=== PATIENT | female | born 1945 ===

== ENCOUNTER 2024-11-14 12:06 | Inpatient (IN) | payer MEDICARE, SELFPAY ==
--- NOTE | ~2024-11-14 | XR_ITS ---
CHEST RADIOGRAPH CLINICAL HISTORY: Evaluate status of pleural effusions . COMPARISON: 11/14/2024 TECHNIQUE: Single portable view of the chest. FINDINGS The cardiomediastinal silhouette is enlarged and partially obscured. Hazy opacification of the bilateral hemidiaphragms suggesting small bilateral pleural effusions, righ t greater than left. Increased interstitial markings are identified bilaterally, findings suggesting mild pulmonary vascul ar congestion. The remainder of the lungs are clear. Postoperative change within the bilateral apices, suggesting partial rib resection. Fixation hardware within the cervical, thoracic and likely lumbar spines. IMPRESSION: Small bilateral pleural effusions, right greater than left with mild pulmonary vascular congestion. A focused bilateral chest ultrasound may be performed for a sufficient evaluation of the adequacy of the pleural effusions for thoracentesis. Reviewed, dictated and finalized at location A. IMPRESSION: Small bilateral pleural effusions, right greater than left with mild pulmonary vascular congestion. A focused bilateral chest ultrasound may be performed for a sufficient evaluati on of the adequacy of the pleural effusions for thoracentesis.
--- NOTE | ~2024-11-14 | US_ITS ---
EXAMINATION: US soft tissue chest DATE: 11/17/2024 17:49 INDICATION: Bilateral pleural effusions TECHNIQUE: Multiple grayscale and Doppler ultrasound images of the left and right chest were obtained . COMPARISON: None FINDINGS/IMPRESSION: There are relatively symmetric moderate sized bilateral pleural effusions with partial collapse of th e bilateral lower lobes. Reviewed, dictated and finalized at location B.
--- NOTE | ~2024-11-14 | US_ITS ---
Limited ABDOMINAL ULTRASOUND (Doppler ultrasound interrogation techniques used as needed for this coral m.) Ordering provider: Rosita San MD History: . hepatomegaly ?Cirrhosis . Comparison: None. FINDINGS: PANCREAS: Normal echotexture and size of the visualized portions. PORTAL VEIN: Hepatopedal flow demonstrated. LIVER: Enlarged size and normal echotexture. The liver measures 19.2 cm. No focal hepatic lesions or perihepatic fluid collections are identified. BILIARY DUCTS: No intra or extrahepatic biliary dilation. Common bile duct measures 1.7 mm in diamete r which is normal for patient's age. GALLBLADDER: Not well distended. No mobile echogenic foci are seen. No sludge, gallbladder wall thick ening or pericholecystic fluid. The wall measures 1.8 mm. Negative sonographic Sharpe's sign. Inferior vena cava: Patent. FREE FLUID: None visualized within the upper abdomen. Right pleural effusion. IMPRESSION: Hepatomegaly. Small echogenic foci in the gallbladder which may be stones or polyps. Follow-up advise d. Otherwise, normal limited abdominal ultrasound. Reviewed, dictated and finalized at location A. IMPRESSION: Hepatomegaly. Small echogenic foci in the gallbladder which may be stones or po lyps. Follow-up advised. Otherwise, normal limited abdominal ultrasound.
--- NOTE | ~2024-11-14 | CT_ITS ---
CLINICAL INDICATION: Hypotension and hypoxia COMPARISON: None. TECHNIQUE: An enhanced CT of the chest, abdomen and pelvis was performed utilizing multislice spiral technique reconstructed at 5 mm slice thickness. Coronal and sagittal reconstructions were performed . This CT examination was performed utilizing dose reduction techniques. DLP: 464 mGy-cm FINDINGS/OBSERVATIONS: Lung: Large bilateral pleural effusions (right greater than left) with adjacent compressive atelectasis. Consolidation is identified within the superior segment of the left lower lobe. Only the bilateral upper lobes are aerated. The heart is enlarged, without pericardial effusion. Mediastinum: No pathologically enlarged or morphologically suspicious lymph nodes are identified within the medias tinum, bilateral axilla, within the soft tissues of the anterior chest wall. Soft tissues of the chest: Unremarkable. Bones of the chest: Fixation hardware (Carpio rods) is identified along the entirety of the cervical thoracic and lum bar spines, causing streak metallic artifact, limiting examination. No lytic or blastic lesions are identified. Liver: The liver enhances homogeneously and is enlarged measuring 22 cm in longitudinal dimension. Gallbladder and biliary system: The gallbladder is distended, but otherwise unremarkable. Pancreas: The pancreas enhances homogeneously, without ductal dilatation. Spleen: The spleen enhances homogeneously, and is not enlarged measuring 11 cm in longitudinal dimens ion. Kidneys: The bilateral kidneys enhance symmetrically without hydronephrosis or renal calculi. Adrenal glands: Unremarkable. Gastrointestinal tract: Fecal stasis within the colon. Limited evaluation of the pelvis secondary to streak artifact from patient's left hip prosthetic. Mural thickening and edema is suspected within the rectum, with surrounding inflammatory change and i nfiltration of the presacral fat. Appendix: The appendix is not definitively visualized. However, no pericecal inflammatory change is identified suggest the presence of acute appendicitis. Vasculature: Densely calcified atherosclerotic disease is present. No aneurysmal dilatation. Lymph nodes: Scattered nonpathologically enlarged lymph nodes within the root of the mesentery and deep in the pel vis. Pelvic structures: The bladder is decompressed with a Moraes catheter, limiting its evaluation. Sterilization devices within the pelvis. Body wall and musculoskeletal: Small fat-containing umbilical hernia. As detailed above. IMPRESSION: Mural thickening and edema within the distal sigmoid colon and rectum, with infiltration of the kimberlyn cral fat. Large bilateral pleural effusions, right greater than left. Left basilar consolidation. Hepatomegaly. Reviewed, dictated and finalized at location A. IMPRESSION: Mural thickening and edema within the distal sigmoid colon and rectum, with inf iltration of the presacral fat. Large bilateral pleural effusions, right greater than left. Left basilar consolidation. Hepatomegaly.
--- NOTE | ~2024-11-14 | XR_ITS ---
XR chest 1V portable Ordering provider: Tj Saxena History: 79 years Female with . sob . Comparison: None. FINDINGS: MEDIASTINUM: The cardiac silhouette is slightly enlarged. Congestive yolande. LUNGS: No pneumothorax. Bilateral opacification in the upper and lower lobes with opacification more in the right lower lobe suggestive of atelectasis versus pneumonia. Pleural effusion seen on the righ t side. Bilateral interstitial changes seen suggestive of underlying pulmonary edema. OTHER: No free air under the diaphragm. Postoperative changes in the spine. Postoperative changes in the right and left hemithorax. Old fracture. The right and left fifth and 6 th ribs. IMPRESSION: Bilateral pneumonia with highly suggestive underlying pulmonary edema. Right pleural effusion. Reviewed, dictated and finalized at location A.
[2024-11-14 12:13] VITALS: BP 82/43; PULSE 103; RESP 18; TEMP 36.2; O2SAT 93
--- NOTE | 2024-11-14 12:38 | ECG_ITS ---
Test Date: 2024-11-14 13:01:36 Measurements Intervals Cody Rate: 96 P: 0 ND: 0 QRS: 40 QRSD: 91 T: 245 QT: 385 QTc: 488 Interpretive Statements ATRIAL FIBRILLATION EARLY PRECORDIAL R/S TRANSITION ST-T WAVE ABNORMALITY IN ANTEROLAT/INF LEADS- CONSIDER ISCHEMIA BASELINE WANDER- I, II, III, AVL, AVF ABNORMAL ECG No previous ECG available for comparison Electronically Signed On 11-14-2024 16:50:30 CDT by Adi Madrigal D.O.
--- OUTSIDE RECORDS SUMMARY | 2024-11-14 12:42 | XMS_ITS | Encounter Summary ---
Author Organization [facility] Address [address] [facility] [place] [address] Care Team Providers Care Automotive Wholesale Parts Advisor Name Role Phone Elgin Chan MD Primary Care Provide r Encounter Details Date Type Department Care Team (Latest Contact Info) Description 10/26/2014 Ancillary Orders [facility] [place] [address] [place] [phone] Terri Rod, MEDICINE ASSISTANT [address] [place] [phone] Other screening mammogram (Primary Dx) Social History Tobacco Use Types Packs/Day Years Used Date Smoking Tobacco: Never Cigarettes Smokeless Tobacco: Never Alcohol Use Standard Drinks/Week Comments Yes 0 (1 standard drink = 0.6 oz pur e alcohol) social Comments No Sex and Gender Information Value Date Recorded Sex Assigned at Not on file Legal Sex Female 11:13 AM COAT FITTER Gender Identity Not on file Sexual Orientation Not on file Occupation Industry Job Start Date Job End Date Not on file Not on file Not on file Not on file documented as of this encounter Plan of Treatment Upcoming Encounters Date Type Department Care Team (Late st Contact Info) Description 02/23/2025 8:00 AM CDT Appointment [facility] [place] [address] [place] [phone] Jenise Spann MD [address] [place] [phone] documented as of this encounter Visit Diagnoses Diagnosis Other screening mammogram- Primary documented in this encounter Care Teams Automotive Wholesale Parts Advisor Relationship Specialty Start Date End Date Elgin Chan MD [address] [place] [phone] PCP - General Family Practice 06/26/21 documented as of this encounter
--- OUTSIDE RECORDS SUMMARY | 2024-11-14 12:42 | XMS_ITS | Encounter Summary ---
Author Organization [facility] Address [address] [place] [address] Care Team Providers Care Funeral Home Associate Name Role Phone Elgin Chan MD Primary Care Provide r Reason for Referral * Outpatient Services (Routine) - Closed Specialty Diagnoses / Procedures Referred By Contac t Referred To Contact Diagnoses Osteopenia Procedures XR DEXA BONE DENSITY AXIAL 1 OR MORE SITES Htsp, External Provider Referral ID Status Reason Start Date Expiration Date Visits Re quested Visits Authorized [id number] Closed 03/02/2014 04/02/2015 1 1 Encounter Details Date Type Department Care Team (Late st Contact Info) Description 03/02/2014 Ancillary Orders [facility] Central Test Scheduling [place] [address] [place] [address] Htsp, External Provider Osteopenia (Primary Dx) Social History Tobacco Use Types Packs/Day Years Used Date Smoking Tobacco: Never Cigarettes Alcohol Use Standard Drinks/Week Comments Yes 0 (1 standard drink = 0.6 oz pur e alcohol) social Comments No Sex and Gender Information Value Date Recorded Sex Assigned at Not on file Legal Sex Female 11:13 AM KITCHEN ASSISTANT Gender Identity Not on file Sexual Orientation Not on file Occupation Industry Job Start Date Job End Date Not on file Not on file Not on file Not on file documented as of this encounter Plan of Treatment Upcoming Encounters Date Type Department Care Team (Late st Contact Info) Description 02/23/2025 8:00 AM CDT Appointment [facility] [place] [address] [place] [phone] Jenise Spann MD [address] [place] [phone] documented as of this encounter Results * XR DEXA BONE DENSITY AXIAL 1 OR MORE SITES (03/07/2014 1:29 PM CDT) Anatomical Region Laterality Modality Computed Radiogr aphy Impressions 03/07/2014 4:04 PM CDT : Bone mineral densities within the femurs and forearm represent osteopenia. The 10-year probability for a major osteoporotic fracture is 9.1%. MR/db Narrative 03/07/2014 4:04 PM CDT BONE MINERAL DENSITY EXAM, 03/07/14: CLINICAL HISTORY: Osteopenia. INTERPRETATION: Bone mineral density values were obtained from the hips and left forearm and compared to age- and sex-matched nomograms. T-scores in the left and right hip average -1.5 and -1.7 respectively. The T-score within the forearm is approximately -1.7. Procedure Note Fan Aguirre MD - 03/07/2014 BONE MINERAL DENSITY EXAM, 03/07/14: CLINICAL HISTORY: Osteopenia. INTERPRETATION: Bone mineral density values were obtained from the hipsand left forearm and compared to age- and sex-matched nomograms. T-scoresin the left and right hip average -1.5 and -1.7 respectively. The T-scorewithin the forearm is approximately -1.7. IMPRESSION: Bone mineral densities within the femurs and forearm represent osteopenia. The 10-year probability for a major osteoporotic fracture is 9.1%. MR/db us External Provider Htsp DIAGNOSTIC IMAGING ORDERA BLES Final Result documented in this encounter Visit Diagnoses Diagnosis Osteopenia- Primary Disorder of bone and cartilage, unspecified Osteopenia Disorder of bone and cartilage, unspecified documented in this encounter Care Teams Funeral Home Associate Relationship Specialty Start Date End Date Elgin Cahn MD [facility] [address] [facility] [place] [phone] PCP - General Family Practice 06/26/21 documented as of this encounter
--- OUTSIDE RECORDS SUMMARY | 2024-11-14 12:42 | XMS_ITS | Encounter Summary ---
Author Organization [facility] Address [address] [facility] [place] [address] Care Team Providers Care Veneer Drier Feeder Name Role Phone Elgin Chan MD Primary Care Provide r Encounter Details Date Type Department Care Team (Late st Contact Info) Description 03/02/2014 Ancillary Orders [facility] Central Test Scheduling [place] [address] [place] [address] Isra Crowell MD [address] [place] [phone] Social History Tobacco Use Types Packs/Day Years Used Date Smoking Tobacco: Never Cigarettes Alcohol Use Standard Drinks/Week Comments Yes 0 (1 standard drink = 0.6 oz pur e alcohol) social Comments No Sex and Gender Information Value Date Recorded Sex Assigned at Not on file Legal Sex Female 11:13 AM CARDIOPULMONARY PHYSICAL THERAPIST Gender Identity Not on file Sexual Orientation Not on file Occupation Industry Job Start Date Job End Date Not on file Not on file Not on file Not on file documented as of this encounter Plan of Treatment Upcoming Encounters Date Type Department Care Team (Late st Contact Info) Description 02/23/2025 8:00 AM CDT Appointment [facility] [place] [address] [place] [phone] Jenise Spann MD [address] [place] [phone] documented as of this encounter Visit Diagnoses Not on filedocumented in this encounter Care Teams Veneer Drier Feeder Relationship Specialty Start Date End Date Elgin Chan MD [address] [place] [phone] PCP - General Family Practice 06/26/21 documented as of this encounter
--- OUTSIDE RECORDS SUMMARY | 2024-11-14 12:42 | XMS_ITS | Encounter Summary ---
Author Organization [facility] Address [address] [place] [address] Care Team Providers Care Investigation Lieutenant Name Role Phone Elgin Chan MD Primary Care Provide r Encounter Details Date Type Department Care Team (Late st Contact Info) Description 01/28/2018 Ancillary Orders [facility] [place] [address] [place] [phone] Isra Crowell MD [address] [place] [address] Acute back pain with sciatica, left Social History Tobacco Use Types Packs/Day Years Used Date Smoking Tobacco: Never Cigarettes Smokeless Tobacco: Never Alcohol Use Standard Drinks/Week Comments Yes 0 (1 standard drink = 0.6 oz pur e alcohol) social Comments No Sex and Gender Information Value Date Recorded Sex Assigned at Not on file Legal Sex Female 11:13 AM GERIATRIC NURSE ASSISTANT Gender Identity Not on file Sexual Orientation Not on file Occupation Industry Job Start Date Job End Date Not on file Not on file Not on file Not on file documented as of this encounter Plan of Treatment Upcoming Encounters Date Type Department Care Team (Late st Contact Info) Description 02/23/2025 8:00 AM CDT Appointment [facility] [place] [address] [place] [phone] Jenise Spann MD [address] [place] [phone] documented as of this encounter Visit Diagnoses Diagnosis Acute back pain with sciatica, left documented in this encounter Care Teams Investigation Lieutenant Relationship Specialty Start Date End Date Elgin Chan MD [facility] [address] [address] PCP - General Family Practice 06/26/21 documented as of this encounter
--- OUTSIDE RECORDS SUMMARY | 2024-11-14 12:42 | XMS_ITS | Encounter Summary ---
Author Organization [facility] Address [address] [place] [address] Care Team Providers Care Colorer Name Role Phone Elgin Chan MD Primary Care Provide r Reason for Referral * Outpatient Services (Routine) - Closed Specialty Diagnoses / Procedures Referred By Contac t Referred To Contact Diagnoses Abnormal mammogram Procedures MAMMO DIGITAL DIAG UNI RIGHT Terri Rod ARNP Phone: tel: fax: Referral ID Status Reason Start Date Expiration Date Visits Re quested Visits Authorized [id number] Closed 11/07/2014 12/08/2015 1 1 Encounter Details Date Type Department Care Team (Latest Contact Info) Description 11/07/2014 Ancillary Orders [facility] [place] [address] [place] [address] Terri Rod ARNP [address] [place] [phone] Abnormal mammogram (Primary Dx) Social History Tobacco Use Types Packs/Day Years Used Date Smoking Tobacco: Never Cigarettes Smokeless Tobacco: Never Alcohol Use Standard Drinks/Week Comments Yes 0 (1 standard drink = 0.6 oz pur e alcohol) social Comments No Sex and Gender Information Value Date Recorded Sex Assigned at Not on file Legal Sex Female 11:13 AM STRAW HAT 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 Gender Identity Not on file Sexual Orientation Not on file Occupation Industry Job Start Date Job End Date Not on file Not on file Not on file Not on file documented as of this encounter Plan of Treatment Upcoming Encounters Date Type Department Care Team (Late st Contact Info) Description 02/23/2025 8:00 AM CDT Appointment [facility] Outpatient Wound [place] [address] [place] [phone] Jenise Spann MD [address] [facility] [place] [phone] documented as of this encounter Results * MAMMO DIGITAL DIAG UNI RIGHT (11/22/2014 2:33 PM CDT) Anatomical Region Laterality Modality Breast Right Mammography Impressions 11/22/2014 4:17 PM CDT : Stable benign-appearing right breast mammogram with additional mammographic imaging as described above. RECOMMENDATION: Yearly mammogram. BIRADS 2, benign findings. REMINDER: Mammography can detect about 85% of breast cancers. Posterior lesions near the chest wall are especially difficult to image. Regular physical examination and monthly breast self-examinations are important. MAMMOGRAPHY PERFORMED BY: RO/dg Narrative 11/22/2014 4:17 PM CDT UNILATERAL DIGITAL DIAGNOSTIC RIGHT BREAST MAMMOGRAM WITH COMPUTER-AIDED DETECTION, 11/22/14: INDICATION: This is a 69 year old female with abnormal screening mammogram for which additional evaluation of a right MLO asymmetry is recommended. COMPARISON: Previous digital mammograms from [facility] dated 11/02/14, 10/06/13, 09/30/11, 06/27/11. FINDINGS: With additional mammographic imaging including spot compression, 90 degree view, and a repeat MLO view at 40 degrees as well as an exaggerated right craniocaudal view, the area of asymmetry in question within the mid inferior aspect of the right breast does change appearance particularly on spot compression and the repeat MLO view. This is felt to have been related to benign fibroglandular summation. Stable circumscribed density seen within the posterolateral aspect of the right breast most likely related to lymph node and does not appear significantly changed from the 2011 and 2012 studies. us Terri LEARY MAMMO ORDERABLES Final Resu lt documented in this encounter Visit Diagnoses Diagnosis Abnormal mammogram- Primary Abnormal mammogram, unspecified Abnormal mammogram Abnormal mammogram, unspecified documented in this encounter Care Teams Colorer Relationship Specialty Start Date End Date Elgin Chan MD [address] [place] [phone] PCP - General Family Practice 06/26/21 documented as of this encounter
--- OUTSIDE RECORDS SUMMARY | 2024-11-14 12:42 | XMS_ITS | Encounter Summary ---
Author Organization [facility] Address [address] [facility] [address] Care Team Providers Care Information Technology Consultant Name Role Phone Elgin Chna MD Primary Care Provide r Encounter Details Date Type Department Care Team (Late st Contact Info) Description 12/17/2013 Ancillary Orders [facility] Central Test Scheduling [place] [address] [place] [address] Thomas Zambrano MD [address] [place] [address] Edema (Primary Dx) Social History Tobacco Use Types Packs/Day Years Used Date Smoking Tobacco: Never Cigarettes Alcohol Use Standard Drinks/Week Comments Yes 0 (1 standard drink = 0.6 oz pur e alcohol) social Comments No Sex and Gender Information Value Date Recorded Sex Assigned at Not on file Legal Sex Female 11:13 AM NAIL FEEDER Gender Identity Not on file Sexual Orientation Not on file Occupation Industry Job Start Date Job End Date Not on file Not on file Not on file Not on file documented as of this encounter Plan of Treatment Upcoming Encounters Date Type Department Care Team (Late st Contact Info) Description 02/23/2025 8:00 AM CDT Appointment [facility] [place] [address] [place] [phone] Jenise Spann MD [address] [place] [phone] documented as of this encounter Visit Diagnoses Diagnosis Edema- Primary documented in this encounter Care Teams Information Technology Consultant Relationship Specialty Start Date End Date Elgin Chan MD [address] [place] [phone] PCP - General Family Practice 06/26/21 documented as of this encounter
--- OUTSIDE RECORDS SUMMARY | 2024-11-14 12:42 | XMS_ITS | Encounter Summary ---
Author Organization [facility] Address [address] [place] [address] Care Team Providers Care Machine Buffer Name Role Phone Elgin Chan MD Primary Care Provide r Encounter Details Date Type Department Care Team (Late st Contact Info) Description 01/28/2018 Ancillary Orders [facility] [place] [address] [place] [phone] Isra Crowell MD [address] [place] [address] Acute back pain with sciatica, left Social History Tobacco Use Types Packs/Day Years Used Date Smoking Tobacco: Never Cigarettes Smokeless Tobacco: Never Alcohol Use Standard Drinks/Week Comments Yes 0 (1 standard drink = 0.6 oz pur e alcohol) social Comments No Sex and Gender Information Value Date Recorded Sex Assigned at Not on file Legal Sex Female 11:13 AM INTERIOR DESIGN ASSISTANT Gender Identity Not on file Sexual Orientation Not on file Occupation Industry Job Start Date Job End Date Not on file Not on file Not on file Not on file documented as of this encounter Plan of Treatment Upcoming Encounters Date Type Department Care Team (Late st Contact Info) Description 02/23/2025 8:00 AM CDT Appointment [facility] [place] [address] [place] [phone] Jenise Spann MD [address] [place] [phone] documented as of this encounter Results * XR SPINE ENTIRE 2 OR 3 VIEWS (01/28/2018 1:36 PM CDT) Anatomical Region Laterality Modality Spine Computed Radiogr aphy 01/28/2018 1:37 PM CDT Impressions 01/28/2018 2:20 PM CDT IMPRESSION: Stabilization of almost the entire thoracic and lumbar spine with hardware intact and good alignment preserved. Narrative 01/28/2018 2:20 PM CDT Study: Thoracic and lumbar spine with both AP and lateral views obtained. DATE: 01/28/2018 Reason for examination acute back pain with sciatica. FINDINGS: Extensive transpedicular screw fixation and jacqueline stabilization is present throughout the thoracic and lumbar spine. Hardware appears to all be intact. No broken screws are seen. Screws extend into the iliac bones bilaterally along the inferior aspect of this fusion. There are several intervertebral disc spacers present in the lower lumbar spine. Procedure Note Fan lOivarez MD - 01/28/2018 Study: Thoracic and lumbar spine with both AP and lateral views obtained. DATE: 01/28/2018 Reason for examination acute back pain with sciatica. FINDINGS: Extensive transpedicular screw fixation and jacqueline stabilization is present throughout the thoracic and lumbar spine. Hardware appears to all be intact. No broken screws are seen. Screws extend into the iliac bones bilaterally along the inferior aspect of this fusion. There are several intervertebral disc spacers present in the lower lumbar spine. IMPRESSION: Stabilization of almost the entire thoracic and lumbar spine with hardware intact and good alignment preserved. Isra Crowell MD DIAGNOSTIC IMAGING RANDY NAVARRETE Final Result documented in this encounter Visit Diagnoses Diagnosis Acute back pain with sciatica, left Acute back pain with sciatica, left documented in this encounter Care Teams Machine Buffer Relationship Specialty Start Date End Date Elgin [place] [address] PCP - General Family Practice 06/26/21 documented as of this encounter
--- OUTSIDE RECORDS SUMMARY | 2024-11-14 12:42 | XMS_ITS | Encounter Summary ---
Author Organization [facility] Address [address] [place] [address] Care Team Providers Care Boiler Coverer Name Role Phone Elgin Chan MD Primary Care Provide r Reason for Referral * Outpatient Services (Routine) - Closed Specialty Diagnoses / Procedures Referred By Contac t Referred To Contact Diagnoses Constipation, unspecified constipation type Procedures XR ABDOMEN 1 VW Jean Bravo MD [address] [place] [address] Phone: tel: fax: Referral ID Status Reason Start Date Expiration Date Visits Re quested Visits Authorized [id number] Closed 12/15/2017 01/15/2019 1 1 Encounter Details Date Type Department Care Team (Latest Contact Info) Description 12/15/2017 Ancillary Orders [facility] CT Scan [address] [phone] Jean Bravo MD [address] [place], [place] [address] Constipation, unspecified constipation type Social History Tobacco Use Types Packs/Day Years Used Date Smoking Tobacco: Never Cigarettes Smokeless Tobacco: Never Alcohol Use Standard Drinks/Week Comments Yes 0 (1 standard drink = 0.6 oz pur e alcohol) social Comments No Sex and Gender Information Value Date Recorded Sex Assigned at Not on file Legal Sex Female 11:13 AM WARP PICKER Gender Identity Not on file Sexual Orientation Not on file Occupation Industry Job Start Date Job End Date Not on file Not on file Not on file Not on file documented as of this encounter Plan of Treatment Upcoming Encounters Date Type Department Care Team (Late st Contact Info) Description 02/23/2025 8:00 AM CDT Appointment [facility] [place] [address] [place] [phone] Jenise Spann MD [address] [place] [phone] documented as of this encounter Results * XR ABDOMEN 1 VW (12/15/2017 9:38 AM CDT) Anatomical Region Laterality Modality Abdomen Computed Radiogr aphy 12/15/2017 9:38 AM CDT Impressions 12/15/2017 10:03 AM CDT IMPRESSION: No acute intra-abdominal abnormality. There does not appear to be a significant amount of fecal burden. Narrative 12/15/2017 10:03 AM CDT Exam: Abdomen one view. CLINICAL HISTORY: Constipation, unspecified constipation type COMPARISON: 06/05/2014. Interpretation: The bowel gas pattern is unremarkable. There does not appear to be a significant burden of feces in the bowel. No abdominal mass or organomegaly. There are postoperative changes from extensive thoracolumbar and pelvic effusion. Procedure Note Fan Aguirre MD - 12/15/2017 Exam: Abdomen one view. CLINICAL HISTORY: Constipation, unspecified constipation type COMPARISON: 06/05/2014. Interpretation: The bowel gas pattern is unremarkable. There does not appear to be a significant burden of feces in the bowel. No abdominal mass or organomegaly. There are postoperative changes from extensive thoracolumbar and pelvic effusion. IMPRESSION: No acute intra-abdominal abnormality. There does not appear to be a significant amount of fecal burden. Jean Bravo MD DIAGNOSTIC IMAGING ORDERA BLES Final Result documented in this encounter Visit Diagnoses Diagnosis Constipation, unspecified constipation type Constipation, unspecified constipation type documented in this encounter Care Teams Boiler Coverer Relationship Specialty Start Date End Date Elgin Chan MD [address] [place] [phone] PCP - General Family Practice 06/26/21 documented as of this encounter
--- OUTSIDE RECORDS SUMMARY | 2024-11-14 12:43 | XMS_ITS | Referral Summary ---
Author Organization [facility] Address [address] [place] [address] Care Team Providers Care Typer Name Role Phone Fan Damon MD Primary Care Provider [phone]- [phone] Allergies Active Allergy Reactions Criticality Noted Date Comments Adhesive Tape-Silicones Rash Low 10/12/2020 Alendronate Other (See Comments) 10/12/2020 unsure Aspirin Nausea And Vomiting 10/18/2020 Formaldehyde Rash Low 10/12/2020 Metronidazole Hives 10/12/2020 Prednisone Anxiety Low 10/12/2020 Medications Medication Sig Dispensed Refills Start Date End Date Status Cholecalciferol, Vitamin D3, 250 mcg (10,000 unit) Oral CapIndications:vitam in D deficiency Take 1 capsule by mouth daily. Indications: low vitamin D levels Active diclofenac sodium 1 % Top GelIndications:osteo arthritis Apply 2 g topically 4 (four) times daily. Indications: joint damage causing pain and loss of function Active gabapentin 300 mg Oral capsuleIndications:p ain Take 300 mg by mouth as needed. Indications: pain Active pregabalin 100 mg Oral capsuleIndications:p ain Take 100 mg by mouth 2 (two) times daily. Indications: pain Active diphenhydrAMINE 25 mg Oral tablet Take 25 mg by mouth nightly as needed. Active mirabegron (MYRBETRIQ) 50 mg Oral Tb24 Take by mouth. Active pramipexole 0.25 mg Oral tabletIndications:hy peractive nerves Take 0.25 mg by mouth 3 (three) times daily. Indications: hyperactive nerves Active Social History Tobacco Use Types Packs/Day Years Used Date Smoking Tobacco: Never Smokeless Tobacco: Never Alcohol Use Standard Drinks/Week Comments Yes 8 (1 standard drink = 0.6 oz pur e alcohol) AUDIT-C Answer Date Recorded Q1: How often do you have a drink containing alcohol? 4 or more times a week 10/18/2020 Q2: How many drinks containi ng alcohol do you have on a typical day when you are drinking? 1 or 2 Frequency of Binge Drinking Not on file 10/09 AAFP SN - Housing Stability Answer Date Recorded Housing Stability Not on file 07/18/2023 Housing Problems Not on file 07/18/2023 Sex and Gender Information Value Date Recorded Sex Assigned at Not on file Gender Identity Not on file Sexual Orientation Not on file Job Start Date Occupation Industry Not on file Not on file Not on file Last Filed Vital Signs Vital Sign Reading Time Taken Comments Blood Pressure 137/54 10/18/2020 6:00 PM DRIED YEAST SUPERVISOR Pulse 85 10/18/2020 6:00 PM DRIED YEAST SUPERVISOR Temperature 36.4 C (97.5 F) 10/18/2020 5:20 PM DRIED YEAST SUPERVISOR Respiratory Rate 15 10/18/2020 6:00 PM DRIED YEAST SUPERVISOR Oxygen Saturation 94% 10/18/2020 6:00 PM DRIED YEAST SUPERVISOR Inhaled Oxygen Concentration - - Weight 63.5 kg (140 lb) 10/18/2020 11:05 AM DRIED YEAST SUPERVISOR Height 170.2 cm (5' 7 ) 10/18/2020 11:05 AM DRIED YEAST SUPERVISOR Body Mass Index 21.93 10/18/2020 11:05 AM DRIED YEAST SUPERVISOR Plan of Treatment Not on file Medical Devices Implanted Type Area Undercutter Device Identifier Shelf Expiration Date Model / Serial / Lot 38mm 2.5 Cchs Implanted:Qty: 1 on 10/18/2020 by Dustin Murcia MD at [facility] Right: Hand SYNTHES .138 / / 2.5 Cchs Implanted:Qty: 1 on 10/18/2020 by Dustin Murcia MD at [facility] Right: Hand SYNTHES .130 / / 2.5 Cchs Implanted:Qty: 1 on 10/18/2020 by Dustin Murcia MD at [facility] Right: Hand SYNTHES .128 / / 2.0 Cchs Implanted:Qty: 1 on 10/18/2020 by Dustin Murcia MD at [facility] Right: Hand [id number] / / Explanted Type Area Undercutter Device Identifier Shelf Expiration Date Model / Serial / Lot 1.0mm Jose Luis Wire, Trocar Points On Both Ends 150mm - [id number] Explanted:Qty: 1 on 10/18/2020 at [facility] Right: Hand [employer] 292.50 / / Guid Wire 0.8mm 100mm - [id number] Explanted:Qty: 1 on 10/18/2020 at [facility] Right: Hand [employer] 03.333.000 / / Advance Directives Healthcare Agents on File Name Relationship Healthcare Agent Relationshi p Communication Johann Estrella Spouse Yes - Makes deci sions when patient is unable to Rod Cruz Son Yes - Makes deci sions when patient is unable to Care Teams Typer Relationship Specialty Start Date End Date Fan Damon MD [address] [place] [id number] PCP - General Family Medicine 10/09/20
--- OUTSIDE RECORDS SUMMARY | 2024-11-14 12:43 | XMS_ITS | Encounter Summary ---
Author Organization [facility] Address [address] [facility] [place] [address] Care Team Providers Care Third Grade Teacher Name Role Phone Elgin Chan MD Primary Care Provide r Encounter Details Date Type Department Care Team (Late st Contact Info) Description 12/22/2013 Ancillary Orders [facility] Central Test Scheduling [place] [address] [place] [address] Thomas Zambrano MD [address] [place] [phone] Orthopnea (Primary Dx) Social History Tobacco Use Types Packs/Day Years Used Date Smoking Tobacco: Never Cigarettes Alcohol Use Standard Drinks/Week Comments Yes 0 (1 standard drink = 0.6 oz pur e alcohol) social Comments No Sex and Gender Information Value Date Recorded Sex Assigned at Not on file Legal Sex Female 11:13 AM COO Gender Identity Not on file Sexual Orientation Not on file Occupation Industry Job Start Date Job End Date Not on file Not on file Not on file Not on file documented as of this encounter Plan of Treatment Upcoming Encounters Date Type Department Care Team (Late st Contact Info) Description 02/23/2025 8:00 AM CDT Appointment [facility] [place] [address] [place] [phone] Jenise Spann MD [address] [place] [phone] documented as of this encounter Visit Diagnoses Diagnosis Orthopnea- Primary documented in this encounter Care Teams Third Grade Teacher Relationship Specialty Start Date End Date Elgin Chan MD [address] [place] [phone] PCP - General Family Practice 06/26/21 documented as of this encounter
--- OUTSIDE RECORDS SUMMARY | 2024-11-14 12:43 | XMS_ITS | Clinical Summary ---
Author Organization [facility] Address [address] [place] [address] Care Team Providers Care Monotype Keyboard Operator Name Role Phone Fan Damon MD Primary Care Provider +1- [phone] Allergies Active Allergy Reactions Criticality Noted Date [...] Comments Blood Pressure 137/54 10/18/2020 6:00 PM COMMERCIAL LOAN ANALYST Pulse 85 10/18/2020 6:00 PM COMMERCIAL LOAN ANALYST Temperature 36.4 C (97.5 F) 10/18/2020 5:20 PM COMMERCIAL LOAN ANALYST Respiratory Rate 15 10/18/2020 6:00 PM COMMERCIAL LOAN ANALYST Oxygen Saturation 94% 10/18/2020 6:00 PM COMMERCIAL LOAN ANALYST Inhaled Oxygen Concentration - - Weight 63.5 kg (140 lb) 10/18/2020 11:05 AM COMMERCIAL LOAN ANALYST Height 170.2 cm (5' 7 ) 10/18/2020 11:05 AM COMMERCIAL LOAN ANALYST Body Mass Index 21.93 10/18/2020 11:05 AM COMMERCIAL LOAN ANALYST Plan of Treatment Health Maintenance Due Date Last Done Comments Tobacco Use Screening 1945 DTaP,Tdap,and Td Vaccines (1 - Tdap) 1952 Shingles Vaccine (1 of 2) 1997 RSV Vaccine ( or 60+yrs) (1 - 1-dose 75+ series) 2022 COVID-19 Vaccine ( - season) 2024 Influenza Vaccine (Season Ended) 2025 06/22/2020, 06/23/2019, 06/03/2018, Additional history exists General Annual Wellness Visit 05/24/2025 05/24/2024, 02/01/2019, 11/27/2016, Additional history exists Pneumococcal Vaccine 65+ yrs Completed 06/22/2020, 07/13/2012 Osteoporosis Screening Completed 06/09/2024, 2022 HIB Vaccines Aged Out No longer eligi ble based on patient's age to complete this topic HPV Vaccines Aged Out No longer eligi ble based on patient's age to complete this topic Hepatitis A Vaccines Aged Out No long er eligible based on patient's age to complete this topic Hepatitis B Vaccines Aged Out No long er eligible based on patient's age to complete this topic Meningococcal ACWY Vaccine Aged Out N o longer eligible based on patient's age to complete this topic RSV Vaccine (under 20 mo) Aged Out No longer eligible based on patient's age to complete this topic Medical Devices Implanted Type Area Plaster Pattern Caster Device Identifier Shelf Expiration Date Model / Serial / Lot 38mm 2.5 Cchs Implanted:Qty: 1 on 10/18/2020 by Dustin Murcia MD at [facility] Right: Hand SYNTHES [id number] / / 2.5 Cchs Implanted:Qty: 1 on 10/18/2020 by Dustin Murcia MD at [facility] Right: Hand SYNTHES 04.333.130 / / 2.5 Cchs Implanted:Qty: 1 on 10/18/2020 by Dustin Murcia MD at [facility] Right: Hand SYNTHES 04.333.128 / / 2.0 Cchs Implanted:Qty: 1 on 10/18/2020 by Dustin Murcia MD at [facility] Right: Hand [id number] / / Explanted Type Area Plaster Pattern Caster Device Identifier Shelf Expiration Date Model / Serial / Lot 1.0mm Jose Luis Wire, Trocar Points On Both Ends 150mm - [id number] Explanted:Qty: 1 on 10/18/2020 at [facility] Right: Hand [employer] 292.50 / / Guid Wire 0.8mm 100mm - [id number] Explanted:Qty: 1 on 10/18/2020 at [facility] Right: Hand [employer] 03.333.000 / / Advance Directives Healthcare Agents on File Name Relationship Healthcare Agent Relationshi p Communication Johann Delores Spouse Yes - Makes deci sions when patient is unable to Rod Cruz Son Yes - Makes deci sions when patient is unable to Care Teams Monotype Keyboard Operator Relationship Specialty Start Date End Date Fan Damon MD [address] [place] [id number] PCP - General Family Medicine 10/09/20
--- OUTSIDE RECORDS SUMMARY | 2024-11-14 12:43 | XMS_ITS | Encounter Summary ---
Author Organization [facility] Address [address] [place] [address] Care Team Providers Care Rand Maker Name Role Phone Elgin Chan MD Primary Care Provide r Encounter Details Date Type Department Care Team (Late st Contact Info) Description 01/13/2015 Ancillary Orders [facility] [place] [address] [facility] [place] [phone] Htsp, External Provider Scoliosis (Primary Dx) Social History Tobacco Use Types Packs/Day Years Used Date Smoking Tobacco: Never Cigarettes Smokeless Tobacco: Never Alcohol Use Standard Drinks/Week Comments Yes 0 (1 standard drink = 0.6 oz pur e alcohol) social Comments No Sex and Gender Information Value Date Recorded Sex Assigned at Not on file Legal Sex 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 Gender Identity Not on file Sexual Orientation Not on file Occupation Industry Job Start Date Job End Date Not on file Not on file Not on file Not on file documented as of this encounter Plan of Treatment Upcoming Encounters Date Type Department Care Team (Late st Contact Info) Description 02/23/2025 8:00 AM CDT Appointment [facility] [place] [address] [place] [phone] Jenise Spann MD [address] [place] [phone] documented as of this encounter Visit Diagnoses Diagnosis Scoliosis- Primary Scoliosis (and kyphoscoliosis), idiopathic documented in this encounter Care Teams Rand Maker Relationship Specialty Start Date End Date Elgin Chan MD [address] [place] [phone] PCP - General Family Practice 06/26/21 documented as of this encounter
--- OUTSIDE RECORDS SUMMARY | 2024-11-14 12:43 | XMS_ITS | Encounter Summary ---
Author Organization [facility] Address [address] [place] [address] Care Team Providers Care Group Managing Director Name Role Phone Elgin Chan MD Primary Care Provide r Encounter Details Date Type Department Care Team (Late st Contact Info) Description 01/13/2015 Ancillary Orders [facility] [place] [address] [place] [phone] Htsp, External Provider Scoliosis (Primary Dx) Social History Tobacco Use Types Packs/Day Years Used Date Smoking Tobacco: Never Cigarettes Smokeless Tobacco: Never Alcohol Use Standard Drinks/Week Comments Yes 0 (1 standard drink = 0.6 oz pur e alcohol) social Comments No Sex and Gender Information Value Date Recorded Sex Assigned at Not on file Legal Sex Female 11:13 AM SEXER Gender Identity Not on file Sexual Orientation Not on file Occupation Industry Job Start Date Job End Date Not on file Not on file Not on file Not on file documented as of this encounter Plan of Treatment Upcoming Encounters Date Type Department Care Team (Late st Contact Info) Description 02/23/2025 8:00 AM CDT Appointment [facility] [place] [address] [place] [phone] Jenise Spann MD [address] [place] [phone] documented as of this encounter Results * XR THORACIC SPINE 2 VW (01/13/2015 9:40 AM CDT) Anatomical Region Laterality Modality Spine Computed Radiogr aphy Impressions 01/13/2015 12:05 PM CDT : No scoliotic curvature evident. There is kyphotic angulation deformity noted involving the thoracic spine with superior endplate compression deformity at T11. Spinal hardware begins at this level and extends inferiorly to the lumbar spine. The distal aspect of the hardware is not included. Without comparison studies acuteness of this compression deformity and angulation cannot be determined. Comparison with any previous outside studies would be helpful. RO:trh Narrative 01/13/2015 12:05 PM CDT TWO VIEW THORACIC SPINE, 01/13/2015: INDICATION: Scoliosis. COMPARISON: None. FINDINGS: AP and lateral views of the thoracic spine are submitted. There is spinal hardware extending from the mid to lower thoracic spine to the lumbar spine. The distal aspect of the hardware is not included on the film secondary to collimation. On frontal view, no significant scoliotic curvature is evident. On the lateral view there is kyphotic angulation deformity involving the lower thoracic spine and what appears to be the T11 level with an associated compression deformity. This is the superior most level of the spinal hardware. us External Provider [facility] ORDERA BLES Final Result * XR LUMBAR SPINE 2 OR 3 VW (01/13/2015 9:40 AM CDT) Anatomical Region Laterality Modality Spine Computed Radiogr aphy Impressions 01/13/2015 2:21 PM CDT : Postoperative changes are identified from fusion from T11 through S2. MR/db Narrative 01/13/2015 2:21 PM CDT LUMBAR SPINE, TWO VIEWS, 01/13/15: CLINICAL HISTORY: Scoliosis. INTERPRETATION: Comparison is made to an MRI lumbar spine dated 09/24/10. There are postoperative changes from prior thoracolumbar fusion with transpedicular screws and rods extending from T11 down through S2. There appears to be a metallic density graft at L5-S1. There appears to be normal alignment. us External Provider [facility] DIAGNOSTIC IMAGING ORDERA BLES Final Result * XR CERVICAL SPINE 2 OR 3 VIEWS (01/13/2015 9:40 AM CDT) Anatomical Region Laterality Modality Spine Computed Radiogr aphy Impressions 01/13/2015 12:05 PM CDT : 1. Interval increase in anterolisthesis of C3 on C4, when compared to the 2012 MRI exam. This likely results in increasing central canal stenosis at this level. If further imaging evaluation is needed, MRI may be repeated. 2. Stable grade I anterolisthesis of C7 on T1. 3. Stable multilevel degenerative changes with disc space narrowing and endplate osteophyte formation from the C4-C5 through C6-C7 levels. 4. No acute osseous abnormality. RO/tlf Narrative 01/13/2015 12:05 PM CDT TWO VIEW CERVICAL SPINE, 01/13/2015: INDICATION: Scoliosis. COMPARISON: Previous MRI dated 11/28/11. FINDINGS: AP and lateral views of the cervical spine are submitted. There is anterolisthesis of C3 on C4 which does appear increased compared to the previous 2012 MRI exam. Additionally, there is stable minimal anterolisthesis of C7 on T1. Multilevel degenerative changes are again noted with disc space narrowing and endplate osteophyte formation at the C4-C5, C5-C6 and C6-C7 levels. Odontoid appears grossly intact on the lateral view. No prevertebral soft tissue swelling. us External Provider [facility] DIAGNOSTIC IMAGING ORDERA BLES Final Result documented in this encounter Visit Diagnoses Diagnosis Scoliosis Scoliosis (and kyphoscoliosis), idiopathic Scoliosis- Primary Scoliosis (and kyphoscoliosis), idiopathic Scoliosis Scoliosis (and kyphoscoliosis), idiopathic Scoliosis Scoliosis (and kyphoscoliosis), idiopathic documented in this encounter Care Teams Group Managing Director Relationship Specialty Start Date End Date Elgin Chan MD [address] [place] [address] PCP - General Family Practice 06/26/21 documented as of this encounter
--- OUTSIDE RECORDS SUMMARY | 2024-11-14 12:43 | XMS_ITS | Encounter Summary ---
Author Organization [facility] Address [address] [place] [address] Care Team Providers Care Network Contract Manager Name Role Phone Elgin Chan MD Primary Care Provide r Reason for Referral * Outpatient Services (Routine) - Closed Specialty Diagnoses / Procedures Referred By Contac t Referred To Contact Diagnoses SOB (shortness of breath) Procedures ECHO COMPLETE Thomas Zambrano MD [address] [place] [phone] Phone: tel: fax: Referral ID Status Reason Start Date Expiration Date Visits Re quested Visits Authorized [id number] Closed 12/28/2013 01/28/2015 1 1 Encounter Details Date Type Department Care Team (Late st Contact Info) Description 12/28/2013 Ancillary Orders [facility] Central Test Scheduling [address] [phone] Thomas Zambrano MD [address] [place] [address] SOB (shortness of breath) (Primary Dx) Social History Tobacco Use Types Packs/Day Years Used Date Smoking Tobacco: Never Cigarettes Alcohol Use Standard Drinks/Week Comments Yes 0 (1 standard drink = 0.6 oz pur e alcohol) social Comments No Sex and Gender Information Value Date Recorded Sex Assigned at Not on file Legal Sex Female 11:13 AM CLIENT ADVOCATE Gender Identity Not on file Sexual Orientation Not on file Occupation Industry Job Start Date Job End Date Not on file Not on file Not on file Not on file documented as of this encounter Plan of Treatment Upcoming Encounters Date Type Department Care Team (Late st Contact Info) Description 02/23/2025 8:00 AM CDT [facility] [place] [address] [place] [phone] Jenise Spann MD [address] [place] [phone] documented as of this encounter Results * ECHO COMPLETE (01/04/2014 3:39 PM CDT) EJECTION FRACTION 53 55 - 85 percent [facility] Narrative [facility] - 01/11/2014 1:36 PM CDT [address] [place], [place] [id number] Adult Transthoracic Echocardiographic Report Patient Name: Tammy Estrella : 1945 Date of Procedure: 01/04/2014 Sex: female Ordering Physician: Thomas Zambrano MD [address] [place] [id number] MR: [id number] Editorial Intern: Anahi Liz RDMS Tape#: Interpreting Physician: RAHUL/DOV Location: [facility] Clinical Diagnosis: shortness of breath Dimensional Measurements LVIDd 3.1 cm (<5.6 cm) LVOT 78 (70-110 cm/sec) LVIDs cm Ao Peak Velocity 128 cm/sec (<170 cm/sec) IVsd 1.7 cm (<1.2 cm) Max gradient 6 mmHg 2LVPWd 1.0 cm (<1.2 cm) Mean gradient mmHg RV 1.9 cm (<2.6 cm) Aortic Valve area cm2 LVOT diameter cm AI Pressure half-time cm/sec AoROOT 2.7 cm (<3.7 cm) LA diam 2.9 cm (<4.0 cm) Mitral Valve EF 53 % (50-65) E wave 66 cm/sec A wave 101 cm/sec Tricuspid Valve E/A ratio 0.65 (>1) Est RVSP 27 mmHg Max gradient mmHg TR Velocity cm/sec Mean gradient mmHg Peak velocity cm/sec (<130 cm/sec) Pulmonic Valve Mitral Valve Area cm2 PV peak gradient mmHg MVA by PHT cm2 PV Velocity 109 cm/sec Pericardial Effusion NO Echo Interpretation: 1. Study was suboptimal. 2. Left ventricular chamber size is normal with left ventricular hypertrophy. Left ventricular systolic function is normal. Ejection fraction is estimated at 53%. 3. Right ventricular chamber size appears normal. 4. Left and right atrium are of normal dimensions. 5. Mitral valve leaflets are without significant restriction of leaflet mobility. 6. Aortic valve is without significant restriction of leaflet mobility. 7. Tricuspid valve leaflet appears normal. 8. Pulmonic valve leaflets are not seen. 9. There is no significant pericardial effusion. 10. Color flow study demonstrates trace tricuspid and aortic valve regurgitation. 11. Doppler flow study with pulse and continuous wave interrogation across the pulmonic and aortic valve shows no stenosis. Peak velocity across tricuspid valve leaflets estimates pulmonary artery systolic pressure of 27 mmHg. Pulse wave pattern across the mitral valve leaflet shows equal vessels, suggests delayed left ventricle relaxiation. 12. Aortic root is of normal dimensions measuring 2.7 cm. SUMMARY: 1. Suboptimal echocardiographic images. 2. Normal left ventricular systolic function of 53%. 3. Left ventricular hypertrophy. 4. Findings suggestive of abnormal diastolic function. Job [id number] OI:keila Procedure Note Willy Ward MD - 01/11/[id number] [place] [id number] Adult Transthoracic Echocardiographic Report Patient Name: Tammy Estrella : 1945 Date of Procedure: 01/04/2014 Sex: female Ordering Physician: Thomas Zambrano MD [address] [place] [address] MR: [id number] Editorial Intern: Anahi Liz RDMS Tape#: Interpreting Physician: RAHUL/DOV Location: [facility] Clinical Diagnosis: shortness of breath Dimensional Measurements LVIDd 3.1 cm (<5.6 cm) LVOT 78 (70-110 cm/sec) LVIDs cm Ao Peak Velocity 128 cm/sec (<170 cm/sec) IVsd 1.7 cm (<1.2 cm) Max gradient 6 mmHg 2LVPWd 1.0 cm (<1.2 cm) Mean gradient mmHg RV 1.9 cm (<2.6 cm) Aortic Valve area cm2 LVOT diameter cm AI Pressure half-time cm/sec AoROOT 2.7 cm (<3.7 cm) LA diam 2.9 cm (<4.0 cm) Mitral Valve EF 53 % (50-65) E wave 66 cm/sec A wave 101 cm/sec Tricuspid Valve E/A ratio 0.65 (>1) Est RVSP 27 mmHg Max gradient mmHg TR Velocity cm/sec Mean gradient mmHg Peak velocity cm/sec (<130 cm/sec) Pulmonic Valve Mitral Valve Area cm2 PV peak gradient mmHg MVA by PHT cm2 PV Velocity 109 cm/sec Pericardial Effusion NO Echo Interpretation: 1. Study was suboptimal. 2. Left ventricular chamber size is normal with left ventricularhypertrophy. Left ventricular systolic function is normal. Ejectionfraction is estimated at 53%. 3. Right ventricular chamber size appears normal. 4. Left and right atrium are of normal dimensions. 5. Mitral valve leaflets are without significant restriction of leafletmobility. 6. Aortic valve is without significant restriction of leaflet mobility. 7. Tricuspid valve leaflet appears normal. 8. Pulmonic valve leaflets are not seen. 9. There is no significant pericardial effusion. 10. Color flow study demonstrates trace tricuspid and aortic valveregurgitation. 11. Doppler flow study with pulse and continuous wave interrogationacross the pulmonic and aortic valve shows no stenosis. Peak velocityacross tricuspid valve leaflets estimates pulmonary artery systolicpressure of 27 mmHg. Pulse wave pattern across the mitral valve leafletshows equal vessels, suggests delayed left ventricle relaxiation. 12. Aortic root is of normal dimensions measuring 2.7 cm. SUMMARY: 1. Suboptimal echocardiographic images. 2. Normal left ventricular systolic function of 53%. 3. Left ventricular hypertrophy. 4. Findings suggestive of abnormal diastolic function. Job [id number] OI:keila us Thomas Zambrano MD ORDERABLES Final Result [facility] documented in this encounter Visit Diagnoses Diagnosis SOB (shortness of breath)- Primary Shortness of breath SOB (shortness of breath) Shortness of breath documented in this encounter Care Teams Network Contract Manager Relationship Specialty Start Date End Date Elgin Chan MD [address] [place] [phone] PCP - General Family Practice 06/26/21 documented as of this encounter
--- OUTSIDE RECORDS SUMMARY | 2024-11-14 12:43 | XMS_ITS | Encounter Summary ---
Author Organization [facility] Address [address] [place] [address] Care Team Providers Care Material Stress Tester Name Role Phone Elgin Chan MD Primary Care Provide r Encounter Details Date Type Department Care Team (Late st Contact Info) Description 12/17/2013 Ancillary Orders [facility] Test Scheduling [place] [address] [place] [address] Thomas Zambrano MD [address] [place] [phone] Bilateral leg edema (Primary Dx); Swelling of limb Social History Tobacco Use Types Packs/Day Years Used Date Smoking Tobacco: Never Cigarettes Alcohol Use Standard Drinks/Week Comments Yes 0 (1 standard drink = 0.6 oz pur e alcohol) social Comments No Sex and Gender Information Value Date Recorded Sex Assigned at Not on file 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 Gender Identity Not on file Sexual Orientation Not on file Occupation Industry Job Start Date Job End Date Not on file Not on file Not on file Not on file documented as of this encounter Plan of Treatment Upcoming Encounters Date Type Department Care Team (Late st Contact Info) Description 02/23/2025 8:00 AM CDT Appointment [facility] [place] [address] [place] [phone] Jenise Spann MD [address] [place] [phone] documented as of this encounter Visit Diagnoses Diagnosis Bilateral leg edema- Primary Edema Swelling of limb documented in this encounter Care Teams Material Stress Tester Relationship Specialty Start Date End Date Elgin Chan MD [facility] [address] [phone] PCP - General Family Practice 06/26/21 documented as of this encounter
--- OUTSIDE RECORDS SUMMARY | 2024-11-14 12:43 | XMS_ITS | Encounter Summary ---
Author Organization [facility] Address [address] [place] [address] Care Team Providers Care Finance Lecturer Name Role Phone Elgin Chan MD Primary Care Provide r Encounter Details Date Type Department Care Team (Late st Contact Info) Description 01/13/2015 Ancillary Orders [facility] [place] [address] [place] [phone] Htsp, External Provider Scoliosis (Primary Dx) Social History Tobacco Use Types Packs/Day Years Used Date Smoking Tobacco: Never Cigarettes Smokeless Tobacco: Never Alcohol Use Standard Drinks/Week Comments Yes 0 (1 standard drink = 0.6 oz pur e alcohol) social Comments No Sex and Gender Information Value Date Recorded Sex Assigned at Not on file 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 [place] [address] [place] [phone] Jenise Spann MD [address] [place] [phone] documented as of this encounter Visit Diagnoses Diagnosis Scoliosis- Primary Scoliosis (and kyphoscoliosis), idiopathic documented in this encounter Care Teams Finance Lecturer Relationship Specialty Start Date End Date Elgin Chan MD [address] [place] [phone] PCP - General Family Practice 06/26/21 documented as of this encounter
--- OUTSIDE RECORDS SUMMARY | 2024-11-14 12:44 | XMS_ITS | Encounter Summary ---
Author Organization [facility] Healthcare Address [address] [place] [address] Care Team Providers Care Comp Field Case Manager Name Role Phone Elgin Chan MD Primary Care Provide r Encounter Details Date Type Department Care Team (Late st Contact Info) Description 10/16/2024 Telephone [facility] Case Management [address] [place] [address] Diane Salinas RN Social History Tobacco Use Types Packs/Day Years Used Date Smoking Tobacco: Never Cigarettes Smokeless Tobacco: Never Alcohol Use Standard Drinks/Week Comments Yes 14 (1 standard drink = 0.6 oz pu re alcohol) social Wine AUDIT-C Answer Date Recorded Q1: How often do you have a drink containing alc ohol? 2-3 times a week 10/05/2024 Q2: How many drinks containi ng alcohol do you have on a typical day when you are drinking? 1 or 2 10/05/2024 Q3: How often do you have si x or more drinks on one occasion? Never 10/05/2024 Personal Safety Answer Date Recorded Have you ever been in or are you currently in a harmful physical or emotional relationship or is someone making you feel afraid or unsafe? 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 difficile 10/14/2024 10/14/2024 documented as of this encounter Care Teams Comp Field Case Manager Relationship Specialty Start Date End Date Elgin Chan MD PCP - General Family Medicine 05/31/24 documented as of this encounter
--- OUTSIDE RECORDS SUMMARY | 2024-11-14 12:44 | XMS_ITS | Patient Health Record ---
Author Organization [facility] Address [address] [place] [address] Care Team Providers Care Gymnasium Teacher Name Role Phone JN RITCHIE MD Primary Care Provider Stevan Henry Unavailable [phone] Valdez ALLISON, Pradeep Unavailable Unavailable Allergies Allergen (clinical drug ingredient) Drug/Non Drug Allergy documented on EMR Reaction Allergy Type Onset Date Status metronidazole Flagyl (uncoded) hives Allergy Active Latex Latex (uncoded) rash Allergy Acti ve prednisone Prednisone (uncoded) nervous, hyper Allergy Active Sulfa (uncoded) rash Allergy Acti ve Reason For Referral Reason ATR 2 FECAL TRANSP LANT LYMPHOCYTIC COLITIS Diagnosis 1 Lymphocytic colitis (K52.832) Diagnosis 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) Referring Provider First Name Pradeep Referring Provider Last Name Valdez Referring Provider Speciality Gastroente rology Referred Organization [facility] Surgery Cli corry LR Referred Provider Stevan Edward Referred Address [address] [facility] [address], [place],[address], Referred Provider Specialty Colorectal S urgery General Notes Lisa Gonzáles 2023 10:08:19 AM >SPOKE TO FELICITA WITH REF OFFICE---SHE WILL FAX OVER PT FACESHEET TO ME.Eliecer Laurie 07/26/2024 02:26:33 PM >FACESHEET RCVDEliecer Laurie 07/29/2024 03:25:45 PM >ATR 1---CALLED PT BUT PHONE JUST RINGS, NO VMEliecer Laurie 08/02/2024 03:00:45 PM >ATR 2---LVM TO PTEliecer Laurie 08/03/2024 07:27:40 AM >LETTER MAILED TO PT AND REF OFFICE INFORMED BY FAX---REFERRAL CLOSED Referral Priority Routine Medications Medication SIG (Take, Route, Frequency, Duration) Notes Start Date End Date Status Flonase 50 mcg/inh 1 spray(s) intranasa lly once a day for 30 day(s) 01/04/2014 Not-Aleksandr ing Forteo 600 mcg/2.4 mL 20 mcg subcutaneou sly once a day for 30 day(s) 03/18/2014 Not-Aleksandr ing Lyrica 100 mg 1 cap(s) orally tid for 90 days 02/14/2014 Active Vitamin D3 400 intl units 2 tab(s) orally daily for 30 day(s) Active gabapentin 600 mg 1 tab(s) orally in P M for 30 day(s) Not-Taking probiotic culturelle as directed QD Not-Taking Cipro 250 mg 1 tab(s) orally ever y 12 hours for 7 days 05/09/2014 Not-Taking Prempro 0.3 mg-1.5 mg 1 tab(s) orally on ce a day for 30 day(s) Not-Taking Calcium 600+D 600 mg-200 units 1 tab(s) orally bid for 30 day(s) Not-Taking losartan 25 mg 1 tab(s) orally once a day for 30 day(s) Active Lasix 40 mg 1 tab(s) orally once a day for 30 day(s) 06/08/2014 Active oxyBUTYnin 5 mg 1 tab(s) orally ashly y for 90 days 04/08/2014 Unknown Lialda 1.2 g 1 tab(s) orally daily 02/14/2014 Not-Taking multivitamin Multiple Vitamins 1 cap(s) orally once a day for 30 day(s) Not-Taking Zanaflex 4 mg 1/2 - 1 tab orally q hs for 30 day(s) Not-Taking promethazine 25 mg 1 tab(s) orally ever y 6 hours as needed for nausea for 3 days 01/04/2014 Not-Taking Hinckley 325 mg-10 mg 1 tab(s) orally Q HS PRN Not-Taking magnesium amino acids chelate 100 mg 1 tab(s) orally daily for 30 day(s) Not-Taking Macrobid macrocrystals-monohydra te 100 mg 1 cap(s) orally 2 times a day for 7 days Active Problems Problem Type SNOMED Code ICD Code Onset Dates Problem Status W/U Status Risk Notes Problem Osteopenia (066486016) Osteopenia (733.90) Active confirmed Plan Of Treatment Pending Test Test Name Order Date Sodium, Serum 01/27/2014 Insurance Providers Payer Name Payer Address Payer Phone Subscriber Number Group Number Insured Name Patient Relationship to Insured Coverage Start Date Coverage End Date MEDICARE [address] [place] [phone] [id number] SE[place] Self - patient is the insured 2 [employer] [address] [place] [address] [id number] [place] Self - patient is the insured 0 Medications Administered Medication Instructions Date of Administration Dosage Notes Injection - Phenergan, 25 mg 01/04/2014 25 mg Medical (General) History Medical History History ICD Code Arthritis Osteopenia 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
--- OUTSIDE RECORDS SUMMARY | 2024-11-14 12:45 | XMS_ITS | Referral Summary ---
Author Organization [facility] Address 1 [place] [address] Care Team Providers Care Office Support Associate Name Role Phone Elgin Chan MD Primary Care Provide r Encounters Date Type Department Care Team Description 11/10/2024 12:45 PM CDT - 11/10/2024 11:59 PM CDT Hospital Encounter [id number] [address] [place] [address] [address] [place] [phone] S/P spinal fusion Discharge Disposition: Discharge to home or self care 11/10/2024 1:10 PM CDT Office Visit [facility] Orthopaedic Surgery [address] [place] [address] Medical Office Building [address] [place] [address] Randell Corona MD S/P spinal fusion (Primary Dx) 10/05/2024 5:[address] LIGHT SERVICER - 10/29/2024 4:10 PM CDT Hospital Encounter [address] [phone] Randell Corona MD Yu, Tong, MD Lane, MD Concepción Stock, MD Álvaro Bruno, MD Fortino Shah, Yovana Bhatia MD Kyphosis, unspecified kyphosis type, unspecified spinal region (Primary Dx); Acute postoperative pain [G89.18]; Cervicalgia [M54.2]; Midline thoracic back pain, unspecified chronicity [M54.6]; Chronic use of opiate drug for therapeutic purpose [Z79.891] Discharge Disposition: Discharge to an IP Rehab facility 10/20/2024 11:40 AM CDT Ancillary Procedure [facility] Vascular Lab IP [address] [facility] [address] [place] [address] 10/16/2024 Telephone [facility] Case Management 1 [place] [address] Diane Salinas RN 10/05/2024 7:[address] LIGHT SERVICER - 10/05/2024 7:[address] LIGHT SERVICER Surgery [facility] Operating Room 1 [place] [address] Randell Corona MD REMOVAL HARDWARE SPINE-Removal instrumentation T3-L1, revision Posterior Spine Fusion with instrumentation C2-L1, Fusion exploration, C3-4 Laminectomy, T3 pedicle subtraction osteotomy, autograft, allograft, bone morphogenetic protein. 10/05/2024 7:[address] LIGHT SERVICER Anesthesia Event [facility] Operating Room 1 [place] [address] Gregg Rocha MD Saunders, Sara Louise, NP 10/04/2024 10:[address] LIGHT SERVICER - 10/04/2024 11:[address] LIGHT SERVICER Hospital Encounter [facility] Radiology [facility] ([facility]) [address] [place] [address] Randell Corona MD Acquired kyphosis; Thoracic spine pain; Lumbar spine pain Discharge Disposition: Discharge to home or self care 10/04/[address] [facility] Orthopaedic Surgery [address] [facility] Medical Office Building 4 [address] [place] [address] Randell Corona MD Acquired kyphosis (Primary Dx); Thoracic spine pain; Lumbar spine pain 10/04/2024 11:[address] LIGHT SERVICER - 10/04/2024 11:[address] LIGHT SERVICER Hospital Encounter [facility] Radiology [facility] [address] [place] [address] Randell Corona MD Fusion of lumbar spine Discharge Disposition: Discharge to home or self care 10/01/[address] [facility] Orthopaedic Surgery [address] [place] [address] Office [facility] [address] [place] [phone] Randell Corona MD 09/29/2024 Orders Only [facility] Randell Corona MD Acquired kyphosis 09/28/2024 Telephone [facility] Radiology 1 [place] [address] Merary Valentin RN 09/17/[address] [facility] Orthopaedic Surgery [address] [place] [address] Office [facility] [address] [place] [phone] Randell Corona MD 09/17/[address] [facility] Orthopaedic Surgery [address] [place] [address] 4 [address] [place] [phone] Milly Ashton RN 09/15/[address] [facility] Orthopaedic Surgery [address] [place] [address] [address] [place] [phone] Randell Corona MD Budesonide 09/15/2024 11:[address] LIGHT SERVICER Lab [facility] [address] [place] [address] Kyphosis, unspecified kyphosis type, unspecified spinal region; Spinal stenosis in cervical region; Cervical spondylosis with myelopathy 09/15/2024 8:[address] LIGHT SERVICER - 09/15/2024 11:[address] LIGHT SERVICER Hospital Encounter [facility] [address] [place] [address] [address] [place] [phone] Acquired kyphosis Discharge Disposition: Discharge to home or self care 09/15/2024 9:[address] LIGHT SERVICER Office Visit [facility] Surgery [address] [place] [address] [address] [place] [phone] Randell Corona MD Acquired kyphosis (Primary Dx) 09/15/2024 11:[address] LIGHT SERVICER Pre-Admission Testing [facility] Pre-Anesthesia Testing [address] [place] [address] Preoperative testing (Primary Dx) 09/15/2024 4:[address] LIGHT SERVICER - 09/15/2024 11:[address] LIGHT SERVICER Hospital Encounter [address] [address] Preoperative testing Discharge Disposition: Discharge to home or self care 09/01/[address] [facility] Orthopaedic Surgery [address] [facility] Medical Office Building 4 [address] [place] [phone] Randell Corona MD [facility] 09/01/[address] [facility] Orthopaedic Surgery [address] [place] [address] Office Building [address] [place] [phone] Randell Corona MD Fusion of lumbar spine (Primary Dx) 08/18/[address] [facility] Orthopaedic Surgery [facility] Office [facility] [address] [place] [phone] Randell Corona MD from Last 3 Months Allergies Active Allergy Reactions Criticality Noted Date Comments Adhesive Rash Medium 03/31/2019 Formaldehyde Rash Medium 09/13/2010 Contact allergy Latex Itching Medium 05/13/2014 Metronidazole Hives Medium 02/10/2014 Prednisone Anxiety Low 10/25/2014 Medications diphenhydrAMINE (BENADRYL) 25 mg capsuleIndication s:sleep Take 1 tablet/capsule (25 mg total) by mouth nightly Active azelastine (ASTELIN) 137 mcg (0.1 %) nasal sprayIndications: Seasonal Allergic Rhinitis Administer 2 sprays into affected nostril(s) as needed for allergies 05/07/20 24 Active clotrimazole-beta methasone (LOTRISONE) creamIndications: rash Apply 1 Application topically as needed (rash) Apply to affected area Active FeroSuL 325 mg (65 mg iron) tabletIndications :Iron Deficiency Anemia Take 1 tablet (325 mg total) by mouth every morning Active fluticasone propionate (FLONASE) 50 mcg/actuation nasal sprayIndications: Allergic Rhinitis Administer 1 spray into affected nostril(s) 2 (two) times a day as needed for rhinitis 05/09/20 23 Active pramipexole (MIRAPEX) 0.5 mg tabletIndications :Restless Legs Syndrome Take 1 tablet (0.5 mg total) by mouth 2 (two) times a day 03/09/20 24 Active pregabalin (LYRICA) 150 mg capsuleIndication s:neuropathy pains Take 1 capsule (150 mg total) by mouth 2 (two) times a day 04/26/20 24 Active triamcinolone (KENALOG) 0.5 % creamIndications: Skin Inflammation Apply topically as needed for rash Apply to affected area 04/09/20 24 Active acetaminophen 500 mg capsule Take 2 capsules (1,000 mg total) by mouth every 6 (six) hours 10/17/19 25 Active lidocaine (LIDODERM) 5 % Place 2 patches on the skin daily Remove & discard patch within 12 hours or as directed by MD. 10/17/19 25 025 Active methocarbamoL (ROBAXIN) 750 mg tablet Take 2 tablets (1,500 mg total) by mouth 3 (three) times a day 10/17/19 25 Active traZODone (DESYREL) 50 mg tablet Take 1 tablet (50 mg total) by mouth nightly 10/17/19 25 025 Active oxyCODONE (ROXICODONE) 10 mg tabletIndications :Pain Take 1 tablet (10 mg total) by mouth every 4 (four) hours as needed for pain 10/16/19 25 Active amiodarone (PACERONE) 200 mg tablet Take 1 tablet (200 mg total) by mouth daily 10/31/19 25 025 Active furosemide (LASIX) 40 mg tablet Take 1 tablet (40 mg total) by mouth daily 10/31/19 25 025 Active warfarin (COUMADIN) 2.5 mg tabletIndications :Venous Thrombosis Take 1 tablet (2.5 mg total) by mouth daily 10/30/19 25 Active nystatin 100,000 unit/mL suspensionIndicat ions:oral candidiasis Take 5 mL (500,000 Units total) by mouth 4 (four) times a day 10/30/19 25 Active diclofenac sodium (VOLTAREN) 1 % gel Apply 1 g topically 2 times daily as needed (for arthritis) 09/08/19 18 025 Discontin ued(Stop Taking at Discharge ) furosemide (LASIX) 20 mg tabletIndications :Edema Take 0.5 tablets (10 mg total) by mouth every morning 025 Discontin ued(Stop Taking at Discharge ) ibuprofen (ADVIL,MOTRIN) 200 mg tab/capIndication s:Pain Take 2 tablet/capsule (400 mg total) by mouth nightly 025 Discontin ued(Stop Taking at Discharge ) losartan (COZAAR) 25 mg tabletIndications :hypertension Take 1 tablet (25 mg total) by mouth 2 (two) times a day 04/28/20 24 025 Discontin ued(Stop Taking at Discharge ) trospium (SANCTURA) 20 mg tabletIndications :Bladder Hyperactivity Take 1 tablet (20 mg total) by mouth 2 (two) times a day 025 Discontin ued(Stop Taking at Discharge ) potassium chloride ER 10 mEq CR tabletIndications :hypokalemia prevention Take 1 tablet/capsule (10 mEq total) by mouth every 48 hours 04/22/20 24 025 Discontin ued(Stop Taking at Discharge ) sodium chloride 1,000 mg tabletIndications :low sodium Take 2 tablets (2 g total) by mouth 2 (two) times a day Discontin ued(Stop Taking at Discharge ) HYDROcodone-aceta minophen (NORCO) 10-325 mg per tablet TAKE 1/2 TO 1 TABLET BY MOUTH TWICE DAILY NEEDED FOR PAIN; MAX DAILY DOSE 2 TABLETS 04/28/20 24 025 Discontin ued(Stop Taking at Discharge ) Prevalite 4 gram powder in packetIndications :diarrhea Take by mouth every morning 09/09/19 025 Discontin ued(Stop Taking at Discharge ) UNABLE TO FINDIndications:b one loss every 30 (thirty) days Med Name: Evenity monthly injections 025 Discontin ued(Stop Taking at Discharge ) sodium chloride 1 gram tabletIndications :low sodium Take 2 tablets (2 g total) by mouth 3 (three) times a day with meals 180 tablet 11 10/17/19 25 025 Discontin ued(Stop Taking at Discharge ) enoxaparin (LOVENOX) 40 mg/0.4 mL syringeIndication s:Deep Vein Thrombosis Prevention Inject 0.4 mL (40 mg total) under the skin daily 10/16/19 25 025 Discontin ued(Stop Taking at Discharge ) tamsulosin (FLOMAX) 0.4 mg extended release capsule Take 1 capsule (0.4 mg total) by mouth daily with dinner 10/17/19 25 025 Discontin ued(Stop Taking at Discharge ) vancomycin (VANCOCIN) 125 mg capsuleIndication s:Clostridioides difficile infection Take 1 capsule (125 mg total) by mouth 4 (four) times a day for 14 days 10/16/19 025 Discontin ued(Stop Taking at Discharge ) oxyCODONE (ROXICODONE) 15 mg immediate release tabletIndications :Pain Take 1 tablet (15 mg total) by mouth every 4 (four) hours as needed for pain For pain rating >6 10/16/19 025 Discontin ued(Stop Taking at Discharge ) apixaban (ELIQUIS) 5 mg tabletIndications :Venous Thrombosis Take 1 tablet (5 mg total) by mouth 2 (two) times a day 180 tablet 10/24/19 25 025 Discontin ued(Other ) rivaroxaban (XARELTO) 20 mg tabletIndications :Venous Thrombosis Take 1 tablet (20 mg total) by mouth daily with dinner 90 tablet 10/24/19 25 025 Discontin ued(Other ) enoxaparin (LOVENOX) 60 mg/0.6 mL syringe Inject 0.6 mL (60 mg total) under the skin every 12 (twelve) hours 45 mL 10/24/19 25 025 Discontin ued(Other ) fidaxomicin (DIFICID) tabletIndications :Clostridioides difficile infection Take 1 tablet (200 mg total) by mouth every 12 (twelve) hours for 3 doses 3 tablet 10/28/19 25 025 Discontin ued(Stop Taking at Discharge ) Active Problems Problem Noted Date Diagnosed Date Ileus 10/20/2024 Assessment & Plan (10/20/2024 2:58 PM CDT): -KUB 10/14: Gaseous dilation of colon is seen in the upper abdomen with suggestion of thumbprinting which may be seen in the setting of colitis with superimposed ileus. -Continue simethicone prn for comfort Pleural effusion 10/20/2024 Assessment & Plan (10/20/2024 2:57 PM CDT): -patient noted experiencing shortness of breath without hypoxia. -CXR with mod/large new right pleural effusion and worsening LLL opacities (likely atelectasis however could be pna) -Thoracentesis (10/13/24) with 600 cc removed, fluid transudative - TTE (10/13/24): hyperdynamic LV (EF 82%), right ventricular dilatation, mild aortic stenosis -s/p diuresis, hold now -CXR on icu admit with improvement in pleural effusion and atelectasis Atrial fibrillation with rapid ventricular respo nse 10/20/2024 Assessment & Plan (10/22/2024 1:56 PM CDT): -unclear etiology, possible volume related, infectious, electrolyte abnormalities -POCUS with underfiled RV and collapsible IVC -blood cultures 10/20 NGTD, urine cx 10/20 with insignificant growth fluid resuscitate as appropriate, received 1L crystalloid -unable to give BB with borderline low BP -received 2 amio boluses, s/p amio gtt -s/p digoxin load followed by 250mcg once and amio po load -therapeutic lovenox, s/p heparin gtt Physical deconditioning 10/19/2024 Assessment & Plan (10/19/2024 12:40 PM CDT): Contininue pt/ot -OOB to chair 2-3 hours a day -Dispo: Inpatient rehab Acute on chronic back pain 10/18/2024 Assessment & Plan (10/20/2024 3:00 PM CDT): -continue Robaxin -continue prn oxy Assessment & Plan (10/18/2024 3:10 PM CDT): --Home regimen of [place] PRN, Lyrica, Ibuprofen --Managed inpatient with oral regimen of scheduled Tylenol, methocarbamol, pregabalin and oxycodone PRN UTI (urinary tract infection) 10/17/2024 Assessment & Plan (10/22/2024 6:48 AM CDT): Urine cultures 10/14 grew Klebsiella, Morganella susceptible to ceftriaxone/ciprofloxacin. Likely from urine retention. Moraes was placed intraoperatively on 10/05 removed 10/08 replaced 10/11 due to high postvoid residual - Moraes changed 10/17 - Completed 3-day course of CTX 10/17-10/19 - UA 10/20 dirty, urine culture with insignificant growth -blood cx 10/20 NGTD Assessment & Plan (10/18/2024 2:55 PM CDT): --Foul odor/dysuria reported on 10/13 --UA obtained, urine cultures from 10/14 grew Klebsiella, Morganella susceptible to ceftriaxone/ciprofloxacin --UTI likely from urine retention --Moraes was placed intraoperatively on 10/05 removed 10/08 replaced 10/11 due to high postvoid residual --Internal medicine following, recommended Moraes change on 10/17 and IV ceftriaxone for 5 days (10/17-10/22) Assessment & Plan (10/19/2024 2:53 PM CDT): Urine cultures 10/14 grew Klebsiella, Morganella susceptible to ceftriaxone/ciprofloxacin. Likely from urine retention. Moraes was placed intraoperatively on 10/05 removed 10/08 replaced 10/11 due to high postvoid residual - Moraes changed 10/17 - Completed 3-day course of CTX 10/17-10/19 Abdominal distension, gaseous 10/17/2024 Assessment & Plan (10/19/2024 3:03 PM CDT): Gaseous abdominal distension on exam. KUB 10/14: Gaseous dilation of colon is seen in the upper abdomen with suggestion of thumbprinting which may be seen in the setting of colitis with superimposed ileus. - Patient passing bowel movements so is not clinically obstructed - If develops obstructive symptoms will need management for ileus with consideration of NG placement and NPO - Continue simethicone prn for comfort - She has been on fidaxomicin since 10/14, can offer Imodium if diarrhea not improved tomorrow Diarrhea 10/14/2024 Assessment & Plan (10/18/2024 2:52 PM CDT): --Currently on fidaxomycin in the setting of active C.diff infection --Continue holding stool softeners and laxatives --Appreciate internal medicine recommendations Clostridioides difficile infection 10/14/2024 10/14/2024 Assessment & Plan (10/22/2024 1:32 PM CDT): -previously treated in July 2024 -cdiff + 10/14 -Fidaxomycin (10/19-) for 10 days Assessment & Plan (10/19/2024 2:53 PM CDT): Reported history of CDI in July 2024, treated with oral vancomycin, who presented for spinal surgery, received pre-operative antibiotics, and subsequently developed severe CDI (marked leukocytosis and colonic dilatation, measured at > 7 mm). ID was consulted and she was started on fidaxomicin with improvement in her leukocytosis and more formed stools. - ID signed off but peripherally following - Fidaxomicin is preferred in her case given her previous treatment with oral vancomycin and a study suggesting it may help prevent recurrence. The plan is to complete a 10-day course of treatment. However, if the facility cannot afford fidaxomicin, she can be treated with oral vancomycin 125 mg QID for 14 days - Treatment course is being extended with new start date of 10/20 as she received CTX for UTI 10/17-10/19 Assessment & Plan (10/19/2024 10:01 AM CDT): history of CDI in July 2024, treated with oral vancomycin, who presented for spinal surgery, received pre-operative antibiotics, and subsequently developed severe CDI (marked leukocytosis and colonic dilatation, measured at > 7 mm). She was started on fidaxomicin 10/14 x10 days, with improvement in her leukocytosis and more formed stools. She is planned for discharge to rehab, which cannot afford fidaxomicin 200 mg BID Plan Per ID fidaxomicin is preferred in her case given her previous treatment with oral vancomycin and a study suggesting it may help prevent recurrence. The plan is to complete a 10-day course of treatment. However, if the facility cannot afford fidaxomicin, she can be treated with oral vancomycin 125 mg QID for 14 days 10/19 still having frequent liquid BM per patient, x5 already this am. She is not interested in fecal device. Will add miconazole cream. Acute urinary retention 10/13/2024 Assessment & Plan (10/18/2024 2:50 PM CDT): --Failed Void Trial 10/10-10/12 with multiple straight caths for urinary retention --Moraes replaced on 10/12 in the setting of acute urinary retention --Moraes swapped out on 10/17 --Plan to void trial after completing aggressive diuresis Edema 10/13/2024 Assessment & Plan (10/19/2024 10:22 AM CDT): --BLE edema (chronic) --Lymphedema therapy eval, BLE wraps 4-5x/wk --BLE elevation as tolerated --Appreciate internal medicine recommendations for diuresis 10/18 lasix 40mg IV x1 10/19 500ml IVF bolus overnight 09/12 hypotension, BLE edema unchanged 2-3+ with tubigrips on Hypocalcemia 10/13/2024 Assessment & Plan (10/18/2024 2:51 PM CDT): --Routine BMP's monitored throughout hospitalization --Calcium 7.1 on 10/17 --Calcium ionized WB 3.96 --Calcium carbonate 500mg BID --Continue to monitor BMP daily Leukocytosis 10/13/2024 Assessment & Plan (10/18/2024 3:07 PM CDT): --Routine CBC's monitored throughout hospitalization --WBC peak at 23.3 on 10/12 ISO acute UTI, active C.diff infection --Down-trending to 10.3 overnight of 10/18 Assessment & Plan (10/17/2024 1:42 PM CDT): Large jump to 23 WBC 3/5 from previously normal, no fevers, new tachycardia, or new symptoms (pt actually feels better than before) to explain or sign of infection. RVP negative although flu inconclusive. Thoracentesis from 10/13 with negative stain and very few WBC, not consistent with infection (transudative with low WBC) - cdiff returned positive 10/14, mgmt as per that section - Urine cultures 10/14 grew Klebsiella Morganella; management per UTIs section - WBC improving, continue to monitor Shortness of breath 10/12/2024 Assessment & Plan (10/18/2024 2:45 PM CDT): --Overnight 10/14 pt complained of some labored breathing, 2L O2 requirement alhtough no clear desaturation --Internal medicine consulted and following --s/p thoracentesis on 10/13 with 600 cc removed, fluid transudative, intermittent diuresis --Internal medicine recommending Lasix 40mg IV once on 10/18, incentive spirometry, chest physiotherapy to improve atelectasis seen on repeat chest imaging --CXR repeated 10/18 without significant change; symptoms consistent with fluid overloaded on exam --Monitoring SpO2 on telemetry; maintaining SpO2 of 91-98% on 2L NC Assessment & Plan (10/19/2024 2:41 PM CDT): No known hx lung disease or heart failure but on Lasix 10mg daily at home. Overnight 10/12 then again on 10/18, pt complained of some labored breathing, felt largely limited to pain, 2L O2 requirement although no clear desat. BNP 8000. CXR showing mod/large new R pleural effusion and worsening of LLL opacities, likely atelectasis but could consider aspiration/PNA. Prior TTE 06/2024 with 55% EF, intederminate DDF. Episodes coincide with evidence of volume overload on exam, spot dosed Lasix IV x2. - Thoracentesis (10/13/24) with 600 cc removed, fluid transudative - TTE (10/13/24): hyperdynamic LV (EF 82%), right ventricular dilatation, mild aortic stenosis - CXR (10/18/24) for subsequent episode without significant change - Holding diuresis today despite mild volume overload as she is symptomatically stable and continuing to have volume loss via significant diarrhea - If volume overloaded on exam tomorrow, 1.5L fluid restriction (counseled today) and spot-dose IV Lasix - Wean O2 as tolerated for SpO2 > 92% - Intensive spirometry, chest physiotherapy to improve atelectasis seen on repeat chest imaging Hypertension 10/05/2024 Assessment & Plan (10/20/2024 2:58 PM CDT): -hold home antihypertensives Assessment & Plan (10/18/2024 2:44 PM CDT): --Takes Losartan 25 and lasix 10 daily (for swelling) at home --Internal medicine following; appreciate recommendations --Continue holding Losartan in the setting of active diuresis Assessment & Plan (10/19/2024 2:56 PM CDT): At home takes Losartan 25 and lasix 10 daily (for swelling). Has been mostly normotensive although lower diastolics commonly 30-40 paired with systolic 110- 120. Diastolics did not change with IVF. - Given SBP is running low; continue to hold losartan Kyphosis 07/23/2024 Assessment & Plan (10/20/2024 2:58 PM CDT): -Status post C2-T8 revision fusion with C3 and C4 laminectomy, T2-4 laminectomy, and T3 VCR on 10/05/[address] Corona, and Dr. Escobar with complex Plastic Surgery closure. -Cleared for discharge from Spine Surgery perspective -Plastic Surgery pulled remaining drains 10/19 -PT, OT recommend inpatient rehab -Accepted at [facility] pending medical clearance Assessment & Plan (10/19/2024 2:57 PM CDT): Status post C2-T8 revision fusion with C3 and C4 laminectomy, T2-4 laminectomy, and T3 VCR on 10/05/[address] Corona, and Dr. Escobar with complex Plastic Surgery closure. Post-op course complicated by multiple medical issues. -Cleared for discharge from Spine Surgery perspective -Plastic Surgery following -PT, OT recommend inpatient rehab -Accepted at [facility] Assessment & Plan (10/19/2024 12:42 PM CDT): --10/05 s/p C2-T10 revision PSF, PSO T3, closed by PRS with nylons, drains x 2 (PRS) -- post-operative imaging not yet obtained -- therapy recommends discharge to [facility] -- patient reports improvement in preoperative symptoms -- patient to follow-up with Dr. Corona outpatient 10/19 Unable to obtain standing scoli Xray, sitting xrays ordered Spinal stenosis in cervical region 07/23/2024 Cervical spondylosis with myelopathy 07/23/2024 Assessment & Plan (10/18/2024 12:58 PM CDT): status post C2-T8 revision fusion with C3 and C4 laminectomy, T2-4 laminectomy, and T3 VCR on 10/05/[address] Corona, and Dr. Escobar with complex Plastic Surgery closure. - management as per primary Neuroforaminal stenosis of cervical spine 2023 Stenosis, cervical spine 05/24/2024 Chronic hip pain after total replacement of left hip joint 04/28/2024 Lymphedema 03/30/2024 Chronic venous hypertension involving both sides 02/05/2024 Nonrheumatic mitral valve regurgitation 04/07/20 23 Hyponatremia 01/29/2022 Assessment & Plan (10/19/2024 8:28 AM CDT): --Routine BMP's monitored throughout hospitalization --Internal medicine following, appreciate recommendations --Interval serum Sodium improvement to 135 --Cont salt tabs 2g TID per medicine recommendation 10/19 NA normalized at 135 (135) Assessment & Plan (10/19/2024 2:55 PM CDT): RESOLVED PT reports chronic low sodium at takes 2g NaCl tablet BID. Seems like underlying SIADH as has decreased to 128 while getting IVF since 10/10. Stayed roughly stable but then now down to 125 due to diarrhea and salt tabs were increased to TID. 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 07/29/2018 Overview (03/31/2019): Added automatically from request for surgery [id number] Nocturia 05/19/2018 Urge incontinence 05/19/2018 Urinary frequency 05/19/2018 Anemia 02/16/2018 Closed displaced fracture of lower epiphysis of left femur 02/13/2018 Chronic pain syndrome 06/20/2017 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 03/05/2016 Bilateral hand pain 12/06/2015 Carpal tunnel syndrome on both sides 12/06/2015 Numbness and tingling in both hands 12/06/2015 Acquired deformity of spine 04/04/2015 Closed fracture of thoracic vertebra 02/07/2015 History of arthrodesis 02/07/2015 Acquired kyphosis 01/27/2015 Inflammatory bowel disease 12/31/2010 Osteoarthritis of lumbar spine 12/31/2010 Vitamin D deficiency 12/31/2010 Female hypogonadism syndrome 09/13/2010 Lower extremity pain 09/13/2010 Overview (04/01/2019): RADICULAR RIGHT LOWER EXTREMITY PAIN Osteopenia 09/13/2010 Postmenopausal bleeding 09/13/2010 Overview (04/01/2019): HAD AN ENDOMETRIAL BIOPSY AND DIAGNOSTIC LAPAROSCOPY IN August 2006, AND THEY FELT LIKE THOSE WERE JUST SOME OLD ENDOMETRIOSIS CHANGES Resolved Problems Problem Noted Date Diagnosed Date Resolved Date Ileus due to infection 10/19/202410/19 Overactive bladder 02/05/2023 Restless leg syndrome 09/11/20222024 Assessment & Plan (10/12/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 Immunizations Immunization Administration Dates Next Due H1N1 Inj 04/24/2010 Influenza, Trivalent, High D ose, Split, Preservative Free, Intramuscular 06/23/2019 Influenza, Trivalent, IM (MDV) 8,09/08/2017,05/28/2014,04/27,07/13/2012,07/01/2011,04/21/2009 Influenza, Unspecified 05/28/2014 Pneumococcal Polysaccharide PPV23 07/13/2012 Social History Tobacco Use Types Packs/Day Years Used Date Smoking Tobacco: Never Cigarettes Smokeless Tobacco: Never Tobacco Cessation:Counseling Given: Not Answered Alcohol Use Standard Drinks/Week Comments Yes 14 [...] on file Legal Sex Female 5:[address] [employer]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 SERVIC[employer] Gender Identity Female 04/11/2020 6:36 AM CDT Sexual Orientation Straight 04/11/2020 6: 36 AM CDT Occupation Industry Job Start Date Job End Date retired Not on file Not on file Not on file Last Filed Vital Signs Vital Sign Reading Time Taken Comments Blood Pressure 117/58 10/29/2024 8:35 AM CDT Pulse 93 10/29/2024 8:35 AM CDT Temperature 36.8 C (98.2 F) 10/29/2024 8:35 AM CDT Respiratory Rate 17 10/29/2024 8:35 AM CDT Oxygen Saturation 95% 10/29/2024 8:35 AM CDT Inhaled Oxygen Concentration - - Weight 79.6 kg (175 lb 8 oz) 10/22/2024 6:04 PM CDT Height 165.1 cm (5' 5 ) 10/10/2024 11:[address] [employer] SERVIC[employer] Body Mass Index 29.2 10/10/2024 11:[address] [employer] 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 Plan of Treatment Not on file Medical Devices Implanted Type Area Facility Security Officer Device Identifier Shelf Expiration Date Model / Serial / Lot [employer]/Ort ho [id number] Intertan 40cm 13mm Left Intertrochanter 130d 1.5mm Nail - [id number] Implanted:Qty: 1 on 04/19/2019 by Rafia Coppola MD at [facility] [employer]/ Ortho [id number] 06/22/2028 [id number] / / [id number] [employer]/Ort ho [id number] Intertan 4.5mm 100mm 95mm Lag Compression Integrated Interlocking - [id number] Implanted:Qty: 1 on 04/19/2019 by Rafia Coppola MD at [facility] [employer] Ortho [id number] 09/22/2028 [id number] / / [id number] [employer]/Ort ho [id number] 5mm 50mm Low Profile Internal Hex Femur Screw Bone Trigen - [id number] Implanted:Qty: 1 on 04/19/2019 by Rafia Coppola MD at [facility] [employer]/ Ortho [id number] / / [employer]/Ort ho [id number] 5mm 35mm Low Profile Internal Hex Femur Screw Bone Trigen - [id number] Implanted:Qty: 1 on 04/19/2019 by Rafia Coppola MD at [facility] [employer]/ Ortho [id number] / / [employer]/Ort ho [id number] 5mm 42.5mm Low Profile Internal Hex Femur Screw Bone Trigen - [id number] Implanted:Qty: 1 on 04/19/2019 by Rafia Coppola MD at [facility]/Rich[employer]/ Ortho [id number] / / Medtronic Inc Kit Graft Bone Sponge Xlg Infuse 8cc Granules [id number] - [id number] Implanted:Qty: 1 on 10/05/2024 by Randell Corona MD at [facility] N/A: Spine Lumbar Medtronic Inc [id number] 10/09/2025 [id number] / / [id number] Medtronic Inc Kit Graft Bone Sponge Xlg Infuse 8cc Granules [id number] - [id number] Implanted:Qty: 1 on 10/05/2024 by Randell Corona MD at [facility] N/A: Spine Lumbar Medtronic Inc [id number] 10/09/2025 [id number] / / [id number] Allosource Crushed Chip Frozen Graft 60ml Bone Cancellous 36967855 - [id number] Implanted:Qty: 1 on 10/05/2024 by Randell Corona MD at [facility] N/A: Spine Lumbar Allosource 06/22/2029 [id number] / / [id number] Medtronic Inc Graft Bone Filler Prefilled Inj 12cc Putty [id number] - [id number] - [id number] Implanted:Qty: 1 on 10/05/2024 by Randell Corona MD at [facility] N/A: Spine Lumbar Medtronic Inc [id number] 08/20/2026 [id number] / [id number] / Medtronic Inc Graft Bone Filler Prefilled Inj 12cc Putty [id number] - [id number] - [id number] Implanted:Qty: 1 on 10/05/2024 by Randell Corona MD at [facility] N/A: Spine Lumbar Medtronic Inc [id number] 08/20/2026 I34759 / [id number] / Medtronic Inc Graft Bone Filler Prefilled Inj 12cc Putty [id number] - [id number] - [id number] Implanted:Qty: 1 on 10/05/2024 by Randell Corona MD at [facility] N/A: Spine Lumbar Medtronic Inc [id number] 08/20/2026 [id number] / [id number] / Allosource 4+ Cm Whole Frozen Irradiate Graft Bone Rib 10249525 - [id number] Implanted:Qty: 1 on 10/05/2024 by Randell Corona MD at [facility] N/A: Spine Lumbar Allosource 11/28/2028 [id number] / / [id number] Medtronic Inc .25in Cap Spine Standard 32 Thread Screw Set [id number] - [id number] Implanted:Qty: 2 on 10/05/2024 by Randell Corona MD at [facility] N/A: Spine Lumbar Medtronic Inc [id number] / / Medtronic Inc Centerpiece 20mm B Cage Spinal 567624x - [id number] Implanted:Qty: 1 on 10/05/2024 by Randell Corona MD at [facility] N/A: Spine Lumbar Medtronic Inc [id number] / / Medtronic Inc Legacy Cd Horizon Breakoff Spine Pedicle Reverse Angle Screw Set 1368631 - [id number] Implanted:Qty: 2 on 10/05/2024 by Randell Corona MD at [facility] N/A: Spine Lumbar Medtronic Inc [id number] / / Medtronic Inc [place] Axial Spine Cl5.5 Op5.5 Curve Connector Jacqueline Titanium [id number] - [id number] Implanted:Qty: 2 on 10/05/2024 by Randell Corona MD at [facility] N/A: Spine Lumbar Medtronic Inc [id number] / / Nuvasive Inc Screw Spinal Posterior Cervical Locking Solid Reline C 4154617 - [id number] Implanted:Qty: 4 on 10/05/2024 by Randell Corona MD at [facility] N/A: Spine Lumbar [employer] [id number] / / Nuvasive Inc Screw Spinal Pedicle Polyaxial Solid Reline 5.5mm Titanium [id number] - [id number] Implanted:Qty: 12 on 10/05/2024 by Randell Corona MD at [facility] N/A: Spine Lumbar [employer] [id number] / / Nuvasive Inc Jacqueline Spinal Lumbar Narrow Connecting O O Rotating Reline 5-6/5-6mm 91349448 - [id number] Implanted:Qty: 4 on 10/05/2024 by Randell Corona MD at [facility] N/A: Spine Lumbar [employer] [id number] / / Nuvasive Inc Connector Spinal Posterior Cervical Rotating Top Top Reline 3.5-4/5-6mm 6577755 - [id number] Implanted:Qty: 4 on 10/05/2024 by Randell Corona MD at [facility] N/A: Spine Lumbar [employer] [id number] / / Globus Medical Spacer Spinal Fortify D16mm W16mm X H24mm Sterile Latex Free 151.102 - [id number] Implanted:Qty: 1 on 10/05/2024 by Randell Corona MD at [facility] N/A: Spine Lumbar [employer] 151.102 / / Glob[employer] Medical Spacer Spinal Fortify 0 D D16 Mm W16 Mm X H16 Mm Footprint Upper Endplate Sagittal Profile Sterile Latex Free 151.501 - [id number] Implanted:Qty: 1 on 10/05/2024 by Randell Corona MD at [facility] N/A: Spine Lumbar [employer] 151.501 / / Gl[employer] Medical Endplate Cage Spinal Lumbar 0 Degree Alif Expandable Fortify [id number] Peek 151.551 - [id number] Implanted:Qty: 1 on 10/05/2024 by Randell Corona MD at [facility] N/A: Spine Lumbar [employer] Medical 151.551 / / Depuy Synthes Spine Screw Spinal Posterior Cervical Polyaxial Solid Symphony 3.5x16mm [id number] - [id number] Implanted:Qty: 7 on 10/05/2024 by Randell Corona MD at [facility] N/A: Spine Lumbar Depuy Synthes Spine [id number] / / Depuy Synthes Spine Screw Spinal Posterior Cervical Polyaxial Solid Symphony 3.5x24mm [id number] - [id number] Implanted:Qty: 1 on 10/05/2024 by Randell Corona MD at [facility] N/A: Spine Lumbar Depuy Synthes Spine [id number] / / Depuy Synthes Spine Screw Spinal Posterior Cervical Polyaxial Solid Symphony 3.5x28mm [id number] - [id number] Implanted:Qty: 1 on 10/05/2024 by Randell Corona MD at [facility] N/A: Spine Lumbar Depuy Synthes Spine [id number] / / Depuy Synthes Spine Expedium 5.5mm 40mm Polyaxial Spine Screw Bone Titanium 5.5mm Jacqueline [id number] - [id number] Implanted:Qty: 2 on 10/05/2024 by Randell Corona MD at [facility] N/A: Spine Lumbar Depuy Synthes Spine [id number] / / Depuy Synthes Spine Expedium Viper 2 5.5mm 480mm Straight Jacqueline Spinal [id number] - [id number] Implanted:Qty: 3 on 10/05/2024 by Randell Corona MD at [facility] N/A: Spine Lumbar Depuy Synthes Spine [id number] / / Depuy Synthes Spine Expedium 1 Inner Monoaxial Spine Screw Set Titanium [id number] - [id number] Implanted:Qty: 13 on 10/05/2024 by Randell Corona MD at [facility] N/A: Spine Lumbar Depuy Synthes Spine [id number] / / Depuy Synthes Spine Connector Spinal Lateral Offset Short Symphony 4.0mm [id number] - [id number] Implanted:Qty: 1 on 10/05/2024 by Randell Cornoa MD at [facility] N/A: Spine Lumbar Depuy Synthes Spine [id number] / / Depuy Synthes Spine Connector Spinal Lateral Offset Long Symphony 4.0mm [id number] - [id number] Implanted:Qty: 2 on 10/05/2024 by Randell Corona MD at [facility] N/A: Spine Lumbar Depuy Synthes Spine [id number] / / Depuy Synthes Spine 5.5-6.35mm Open Closed Spine Angle Connector Jacqueline Titanium 985733045 - [id number] Implanted:Qty: 1 on 10/05/2024 by Randell Corona MD at [facility] N/A: Spine Lumbar Depuy Synthes Spine [id number] / / Depuy Synthes Spine Jacqueline Spinal Posterior Cervical Straight Symphony 4.3q832io Titanium [id number] - [id number] Implanted:Qty: 1 on 10/05/2024 by Randell Corona MD at [facility] N/A: Spine Lumbar Depuy Synthes Spine [id number] / / Depuy Synthes Spine Expedium 5.5mm 30mm Polyaxial Spine Screw Bone Titanium 5.5mm Jacqueline [id number] - [id number] Implanted:Qty: 1 on 10/05/2024 by Randell Corona MD at [facility] N/A: Spine Lumbar Depuy Synthes Spine [id number] / / Depuy Synthes Spine Screw Spinal Cervical Polyaxial Threaded Solid Symphony 4x5.5x30mm [id number] - [id number] Implanted:Qty: 4 on 10/05/2024 by Randell Corona MD at [facility] N/A: Spine Lumbar Depuy Synthes Spine [id number] / / Medtronic Inc Graft Bone Filler Prefilled Inj 12cc Putty [id number] - [id number] - [id number] Implanted:Qty: 1 on 10/05/2024 by Randell Corona MD at [facility] Medtronic Inc 08/20/2026 [id number] / [id number] / Depuy Synthes Spine Screw Spinal Set Posterior Cervical Solid Symphony Titanium [id number] - [id number] Implanted:Qty: 13 on 10/05/2024 by Randell Corona MD at [facility] N/A: Spine Cervical Depuy Synthes Spine [id number] / / Implantech Alliedsil 3x2in Nonreinforced Permanent Implantable Thk.005in 23-700-05 - [id number] Implanted:Qty: 1 on 10/05/2024 by Randell Corona MD at [facility] N/A: Spine Lumbar Implantech [id number] 09/16/2028 23-700-05 / / [id number] Implantech Sheeting Silastic Non Reinforced Alliedsil 0.22t7b7us Silicone 23-700- - [id number] Implanted:Qty: 1 on 10/05/2024 by Randell Corona MD at [facility] N/A: Spine Lumbar Implantech [id number] 11/19/2028-700- / / [id number] Collagen Matrix Inc Duramatrix 5x4in Suturable Graft Soft Tissue Dms45 - [id number] Implanted:Qty: 1 on 10/05/2024 by Randell Corona MD at [facility] N/A: Spine Lumbar Collagen Matrix Inc [id number] 04/10/2025 DMS45 / / [id number] [employer] Medical Graft Bone Magnetos 5cc 1-2mm Granules In Moldable Putty 703-035-Us - [id number] Implanted:Qty: 1 on 10/05/2024 by Randell Corona MD at [facility] N/A: Spine Lumbar [employer] [id number] 03/11/2029 703-035-US / / [id number] Procedures Procedure Name Priority Date/Time Associated Diagnosis Comments XR SCOLIOSIS AP LAT Schedule Routine, Read Routine (OP Routine) 11/10/2024 1:33 PM CDT S/P spinal fusion PROTIME-INR STAT 10/29/2024 4:48 AM CDT PEP THERAPY Routine 10/28/2024 6:00 PM CDT PEP THERAPY Routine 10/28/2024 1:00 PM CDT XR CHEST 1 VIEW IP Routine 10/28/2024 10:11 AM CDT PEP THERAPY Routine 10/28/2024 8:00 AM CDT EGFR Timed 10/27/2024 10:39 PM CDT COMPREHENSIVE METABOLIC PANEL Timed 10/27/2024 10:39 PM CDT PROTIME-INR Routine 10/27/2024 10:39 PM CDT CBC WITHOUT DIFFERENTIAL Timed 10/27/2024 10:39 PM CDT PEP THERAPY Routine 10/27/2024 6:00 PM CDT PEP THERAPY Routine 10/27/2024 1:01 PM CDT PEP THERAPY Routine 10/27/2024 8:00 AM CDT PROTIME-INR STAT 10/26/2024 10:26 PM CDT TYPE AND SCREEN Timed 10/26/2024 8:39 PM CDT PEP THERAPY Routine 10/26/2024 6:00 PM CDT PEP THERAPY Routine 10/26/2024 1:00 PM CDT PEP THERAPY Routine 10/26/2024 8:01 AM CDT EGFR Timed 10/25/2024 9:56 PM CDT PHOSPHORUS Timed 10/25/2024 9:56 PM CDT COMPREHENSIVE METABOLIC PANEL Timed 10/25/2024 9:56 PM CDT PROTIME-INR Routine 10/25/2024 9:56 PM CDT CBC WITHOUT DIFFERENTIAL Timed 10/25/2024 9:56 PM CDT PEP THERAPY Routine 10/25/2024 6:00 PM CDT PEP THERAPY Routine 10/25/2024 1:00 PM CDT PEP THERAPY Routine 10/25/2024 8:00 AM CDT EGFR Routine 10/24/2024 10:20 PM CDT DIFFERENTIAL AUTO Routine 10/24/2024 10:20 PM CDT COMPREHENSIVE METABOLIC PANEL Routine 10/24/2024 10:20 PM CDT PHOSPHORUS Routine 10/24/2024 10:20 PM CDT CBC WITH AUTO DIFFERENTIAL Routine 10/24/2024 10:20 PM CDT PEP THERAPY Routine 10/24/2024 6:00 PM CDT PEP THERAPY Routine 10/24/2024 1:00 PM CDT PEP THERAPY Routine 10/24/2024 8:00 AM CDT EGFR Routine 10/23/2024 9:32 PM CDT DIFFERENTIAL AUTO Routine 10/23/2024 9:3 2 PM CDT TYPE AND SCREEN Timed 10/23/2024 9:32 PM CDT COMPREHENSIVE METABOLIC PANEL Routine 10/23/2024 9:32 PM CDT PHOSPHORUS Routine 10/23/2024 9:32 PM CDT CBC WITH AUTO DIFFERENTIAL Routine 10/23/2024 9:32 PM CDT PEP THERAPY Routine 10/23/2024 6:00 PM CDT PEP THERAPY Routine 10/23/2024 1:00 PM CDT PEP THERAPY Routine 10/23/2024 8:00 AM CDT CALCIUM, IONIZED Routine 10/23/2024 6:22 AM CDT EGFR Routine 10/22/2024 8:47 PM CDT DIFFERENTIAL AUTO Routine 10/22/2024 8:4 7 PM CDT COMPREHENSIVE METABOLIC PANEL Routine 10/22/2024 8:47 PM CDT PHOSPHORUS Routine 10/22/2024 8:47 PM CDT CBC WITH AUTO DIFFERENTIAL Routine 10/22/2024 8:47 PM CDT PEP THERAPY Routine 10/22/2024 6:00 PM CDT PEP THERAPY Routine 10/22/2024 1:00 PM CDT PEP THERAPY Routine 10/22/2024 8:00 AM CDT EGFR Routine 10/21/2024 9:50 PM CDT DIFFERENTIAL AUTO Routine 10/21/2024 9:5 0 PM CDT PHOSPHORUS Routine 10/21/2024 9:50 PM CDT CBC WITH AUTO DIFFERENTIAL Routine 10/21/2024 9:50 PM CDT BASIC METABOLIC PANEL Routine 10/21/2024 9:50 PM CDT HIV 1/2 ANTIBODY PLUS P24 ANTIGEN Routine 10/21/2024 9:50 PM CDT PEP THERAPY Routine 10/21/2024 6:00 PM CDT TRANSTHORACIC ECHO (TTE) LIMITED/FOLLOW UP W LTD DOPPLER/CF W CONTRAST ED Urgent/IP Urgent 10/21/2024 5:32 PM CDT PEP THERAPY Routine 10/21/2024 1:01 PM CDT PEP THERAPY Routine 10/21/2024 10:31 AM CDT PEP THERAPY Routine 10/21/2024 10:31 AM CDT PEP THERAPY Routine 10/21/2024 10:31 AM CDT APTT STAT 10/21/2024 3:26 AM CDT MAGNESIUM Routine 10/20/2024 9:29 PM CDT MANUAL DIFFERENTIAL Routine 10/20/2024 9 :29 PM CDT EGFR Routine 10/20/2024 9:29 PM CDT APTT STAT 10/20/2024 9:29 PM CDT TYPE AND SCREEN Timed 10/20/2024 9:29 PM CDT PHOSPHORUS Routine 10/20/2024 9:29 PM CDT CBC WITH AUTO DIFFERENTIAL Routine 10/20/2024 9:29 PM CDT BASIC METABOLIC PANEL Routine 10/20/2024 9:29 PM CDT OSMOLALITY, URINE Routine 10/20/2024 6:2 3 PM CDT CREATININE, URINE, RANDOM Routine 10/20/2024 6:23 PM CDT CHLORIDE, URINE, RANDOM Routine 10/20/2024 6:23 PM CDT POTASSIUM, URINE, RANDOM Routine 10/20/2024 6:23 PM CDT SODIUM, URINE, RANDOM Routine 10/20/2024 6:23 PM CDT POC BLOOD GAS AND CHEMISTRIES, VENOUS Routine 10/20/2024 6:06 PM CDT MAGNESIUM STAT 10/20/2024 2:54 PM CDT PHOSPHORUS STAT 10/20/2024 2:54 PM CDT EGFR STAT 10/20/2024 2:54 PM CDT CRITICAL RESULT CALLBACK CHEMISTRY STAT 10/20/2024 2:54 PM CDT LACTATE STAT 10/20/2024 2:54 PM CDT BASIC METABOLIC PANEL STAT 10/20/2024 2:54 PM CDT US VEIN DUPLEX LOWER EXTREMITY BILATERAL COMPLETE ED Urgent/IP Urgent 10/20/2024 1:41 PM CDT MANUAL DIFFERENTIAL STAT 10/20/2024 1 :01 PM CDT CRITICAL RESULT CALLBACK CHEMISTRY STAT 10/20/2024 1:01 PM CDT EGFR STAT 10/20/2024 1:01 PM CDT APTT STAT 10/20/2024 1:01 PM CDT PRO B-TYPE NATRIURETIC PEPTIDE STAT 10/20/2024 1:01 PM CDT TROPONIN I HIGH-SENSITIVITY STAT 10/20/2024 1:01 PM CDT PHOSPHORUS STAT 10/20/2024 1:01 PM CDT MAGNESIUM STAT 10/20/2024 1:01 PM CDT COMPREHENSIVE METABOLIC PANEL STAT 10/20/2024 1:01 PM CDT CBC WITH AUTO DIFFERENTIAL STAT 10/20/2024 1:01 PM CDT LACTATE STAT 10/20/2024 1:01 PM CDT URINALYSIS, MICROSCOPIC ONLY STAT 10/20/2024 11:35 AM CDT URINE CULTURE STAT 10/20/2024 11:35 AM CDT URINALYSIS AND REFLEX TO MICROSCOPIC AND CULTURE STAT 10/20/2024 11:35 AM CDT XR ABDOMEN AP 1 VIEW ED Urgent/IP Urgent 10/20/2024 9:03 AM CDT XR CHEST 1 VIEW Critical/Life-Th reatening 10/20/2024 9:03 AM CDT ECG 12-LEAD STAT 10/20/2024 8:45 AM CDT POCT JV-R-QBO-GLU-HCT,WB - ISTAT Routine 10/20/2024 8:29 AM CDT ARTERIAL BLOOD GAS W/LACTATE Routine 10/20/2024 8:25 AM CDT BLOOD CULTURE Routine 10/20/2024 8:24 AM CDT EGFR STAT 10/20/2024 8:15 AM CDT DIFFERENTIAL AUTO STAT 10/20/2024 8:1 5 AM CDT CBC WITH AUTO DIFFERENTIAL STAT 10/20/2024 8:15 AM CDT TROPONIN I HIGH-SENSITIVITY STAT 10/20/2024 8:15 AM CDT PHOSPHORUS STAT 10/20/2024 8:15 AM CDT MAGNESIUM STAT 10/20/2024 8:15 AM CDT BASIC METABOLIC PANEL STAT 10/20/2024 8:15 AM CDT BLOOD CULTURE STAT 10/20/2024 8:15 AM CDT THYROID FUNCTION CASCADE Routine 10/19/2024 8:55 PM CDT EGFR Routine 10/19/2024 8:55 PM CDT DIFFERENTIAL AUTO Timed 10/19/2024 8:5 5 PM CDT CBC WITH AUTO DIFFERENTIAL Timed 10/19/2024 8:55 PM CDT PHOSPHORUS Routine 10/19/2024 8:55 PM CDT BASIC METABOLIC PANEL Routine 10/19/2024 8:55 PM CDT MANUAL DIFFERENTIAL Routine 10/19/2024 8 :30 PM CDT CBC WITH AUTO DIFFERENTIAL Routine 10/19/2024 8:30 PM CDT XR SPINE LUMBAR 2 OR 3 VIEWS IP Routine 10/19/2024 12:39 PM CDT XR SPINE CERVICAL 2 OR 3 VIEWS IP Routine 10/19/2024 12:39 PM CDT XR SPINE THORACIC 2 VIEWS IP Routine 10/19/2024 12:39 PM CDT CHEST PHYSIO THERAPY Routine 10/19/2024 10:03 AM CDT MANUAL DIFFERENTIAL Routine 10/18/2024 10:31 PM CDT EGFR Routine 10/18/2024 10:31 PM CDT PHOSPHORUS Routine 10/18/2024 10:31 PM CDT CBC WITH AUTO DIFFERENTIAL Routine 10/18/2024 10:31 PM CDT BASIC METABOLIC PANEL Routine 10/18/2024 10:31 PM CDT XR CHEST 1 VIEW Timed 10/18/2024 9:59 AM CDT EGFR Routine 10/18/2024 2:13 AM CDT DIFFERENTIAL AUTO Routine 10/18/2024 2:1 3 AM CDT TYPE AND SCREEN Timed 10/18/2024 2:13 AM CDT PHOSPHORUS Routine 10/18/2024 2:13 AM CDT CBC WITH AUTO DIFFERENTIAL Routine 10/18/2024 2:13 AM CDT BASIC METABOLIC PANEL Routine 10/18/2024 2:13 AM CDT CHEST PHYSIO THERAPY Routine 10/17/2024 2:19 PM CDT CHEST PHYSIO THERAPY Routine 10/17/2024 2:19 PM CDT POCT GLUCOSE DEVICE Routine 10/17/2024 11:17 AM CDT EGFR Routine 10/17/2024 5:29 AM CDT DIFFERENTIAL AUTO Routine 10/17/2024 5:2 9 AM CDT PHOSPHORUS Routine 10/17/2024 5:29 AM CDT CBC WITH AUTO DIFFERENTIAL Routine 10/17/2024 5:29 AM CDT BASIC METABOLIC PANEL Routine 10/17/2024 5:29 AM CDT PEP THERAPY Routine 10/16/2024 6:[address] L[employer] SERVICER EGFR Timed 10/16/2024 6:[address] LIGHT SERVICER BASIC METABOLIC PANEL Timed 10/16/2024 6:[address] LIGHT SERVICER MANUAL DIFFERENTIAL Routine 10/16/2024 12:[address] LIGHT SERVICER EGFR Timed 10/16/2024 12:[address] LIGHT SERVICER EGFR Routine 10/16/2024 12:[address] LIGHT SERVICER PHOSPHORUS Routine 10/16/2024 12:[address] LIGHT SERVICER CBC WITH AUTO DIFFERENTIAL Routine 10/16/2024 12:[address] LIGHT SERVICER BASIC METABOLIC PANEL Routine 10/16/2024 12:[address] LIGHT SERVICER BASIC METABOLIC PANEL Timed 10/16/2024 12:[address] LIGHT SERVICER PEP THERAPY Routine 10/15/2024 6:[address] LIGHT SERVICER PEP THERAPY Routine 10/15/2024 1:[address] LIGHT SERVICER EGFR STAT 10/15/2024 9:[address] LIGHT SERVICER DIFFERENTIAL AUTO STAT 10/15/2024 9:[address] LIGHT SERVICER CBC WITH AUTO DIFFERENTIAL STAT 10/15/2024 9:[address] LIGHT SERVICER BASIC METABOLIC PANEL STAT 10/15/2024 9:[address] LIGHT SERVICER PEP THERAPY Routine 10/15/2024 8:[address] LIGHT SERVICER EGFR Routine 10/14/2024 8:[address] LIGHT SERVICER DIFFERENTIAL AUTO Routine 10/14/2024 8:[address] LIGHT SERVICER TYPE AND SCREEN Timed 10/14/2024 8:[address] LIGHT SERVICER PHOSPHORUS Routine 10/14/2024 8:[address] LIGHT SERVICER MAGNESIUM Routine 10/14/2024 8:[address] LIGHT SERVICER CBC WITH AUTO DIFFERENTIAL Routine 10/14/2024 8:[address] L[employer] SERVICER BASIC METABOLIC PANEL Routine 10/14/2024 8:[address] L[employer] SERVICER XR ABDOMEN AP 1 VIEW ED Urgent/IP Urgent 10/14/2024 4:[address] L[employer] SERVICER C. DIFFICILE TESTING Routine 10/14/2024 10:[address] L[employer] SERVICER INFECTION PREVENTION VRE CULTURE Routine 10/14/2024 10:[address] L[employer] SERVICER URINE CULTURE Routine 10/14/2024 9:[address] LIGHT SERVICER INFECTION PREVENTION CHASTITY AURIS PCR, SURVEILLANCE Routine 10/14/2024 9:[address] L[employer] SERVICER BLOOD CULTURE Routine 10/14/2024 8:[address] L[employer] SERVICER MANUAL DIFFERENTIAL Routine 10/14/2024 12:[address] LIGHT SERVICER EGFR Routine 10/14/2024 12:[address] LIGHT SERVICER PHOSPHORUS Routine 10/14/2024 12:[address] LIGHT SERVICER MAGNESIUM Routine 10/14/2024 12:[address] LIGHT SERVICER CBC WITH AUTO DIFFERENTIAL Routine 10/14/2024 12:[address] LIGHT SERVICER BASIC METABOLIC PANEL Routine 10/14/2024 12:[address] LIGHT SERVICER PEP THERAPY Routine 10/13/2024 6:[address] LIGHT SERVICER PRO B-TYPE NATRIURETIC PEPTIDE Timed 10/13/2024 4:[address] LIGHT SERVICER SODIUM, URINE, RANDOM Routine 10/13/2024 4:[address] L[employer] SERVICER OSMOLALITY, URINE Routine 10/13/2024 4:[address] LIGHT SERVICER XR CHEST 1 VIEW Critical/Life-Th reatening 10/13/2024 3:[address] LIGHT SERVICER US GUIDED THORACENTESIS RIGHT Timed 10/13/2024 2:[address] LIGHT SERVICER CELL DIFFERENTIAL, BODY FLUID STAT 10/13/2024 1:[address] LIGHT SERVICER PH, PLEURAL FLUID STAT 10/13/2024 1:[address] LIGHT SERVICER PROTEIN, BODY FLUID STAT 10/13/2024 1 :[address] LIGHT SERVICER LACTATE DEHYDROGENASE, BODY FLUID STAT 10/13/2024 1:[address] LIGHT SERVICER GLUCOSE, BODY FLUID STAT 10/13/2024 1 :[address] LIGHT SERVICER CELL COUNT W/REFLEX DIFFERENTIAL, BODY FLUID STAT 10/13/2024 1:[address] LIGHT SERVICER AEROBIC AND ANAEROBIC CULTURE AND GRAM STAIN STAT 10/13/2024 1:[address] LIGHT SERVICER PEP THERAPY Routine 10/13/2024 1:[address] LIGHT SERVICER TRANSTHORACIC ECHO (TTE) COMPLETE W DOPPLER/CF W CONTRAST ED Urgent/IP Urgent 10/13/2024 10:[address] LIGHT SERVICER PEP THERAPY Routine 10/13/2024 8:[address] LIGHT SERVICER EGFR STAT 10/13/2024 6:[address] LIGHT SERVICER CALCIUM,IONIZED, WHOLE BLOOD STAT 10/13/2024 6:[address] LIGHT SERVICER BASIC METABOLIC PANEL STAT 10/13/2024 6:[address] LIGHT SERVICER MANUAL DIFFERENTIAL Routine 10/12/2024 10:[address] LIGHT SERVICER EGFR Routine 10/12/2024 10:[address] LIGHT SERVICER PHOSPHORUS Routine 10/12/2024 10:[address] LIGHT SERVICER MAGNESIUM Routine 10/12/2024 10:[address] LIGHT SERVICER CBC WITH AUTO DIFFERENTIAL Routine 10/12/2024 10:[address] LIGHT SERVICER BASIC METABOLIC PANEL Routine 10/12/2024 10:[address] LIGHT SERVICER PEP THERAPY Routine 10/12/2024 1:[address] LIGHT SERVICER PEP THERAPY Routine 10/12/2024 1:[address] LIGHT SERVICER PEP THERAPY Routine 10/12/2024 1:[address] LIGHT SERVICER PROTIME-INR STAT 10/12/2024 12:[address] LIGHT SERVICER PRO B-TYPE NATRIURETIC PEPTIDE STAT 10/12/2024 12:[address] LIGHT SERVICER RESPIRATORY PATHOGEN PANEL STAT 10/12/2024 12:[address] LIGHT SERVICER XR CHEST 1 VIEW IP Routine 10/12/2024 7:[address] LIGHT SERVICER EGFR Routine 10/11/2024 10:[address] LIGHT SERVICER DIFFERENTIAL AUTO Routine 10/11/2024 10:[address] LIGHT SERVICER TYPE AND SCREEN Timed 10/11/2024 10:[address] LIGHT SERVICER PHOSPHORUS Routine 10/11/2024 10:[address] LIGHT SERVICER MAGNESIUM Routine 10/11/2024 10:[address] LIGHT SERVICER CBC WITH AUTO DIFFERENTIAL Routine 10/11/2024 10:[address] LIGHT SERVICER BASIC METABOLIC PANEL Routine 10/11/2024 10:[address] LIGHT SERVICER EGFR Routine 10/10/2024 10:[address] LIGHT SERVICER DIFFERENTIAL AUTO Routine 10/10/2024 10:[address] LIGHT SERVICER PHOSPHORUS Routine 10/10/2024 10:[address] LIGHT SERVICER MAGNESIUM Routine 10/10/2024 10:[address] LIGHT SERVICER CBC WITH AUTO DIFFERENTIAL Routine 10/10/2024 10:[address] LIGHT SERVICER BASIC METABOLIC PANEL Routine 10/10/2024 10:[address] LIGHT SERVICER EGFR Routine 10/09/2024 10:[address] LIGHT SERVICER DIFFERENTIAL AUTO Routine 10/09/2024 10:[address] LIGHT SERVICER PHOSPHORUS Routine 10/09/2024 10:[address] LIGHT SERVICER MAGNESIUM Routine 10/09/2024 10:[address] LIGHT SERVICER CBC WITH AUTO DIFFERENTIAL Routine 10/09/2024 10:[address] LIGHT SERVICER BASIC METABOLIC PANEL Routine 10/09/2024 10:[address] LIGHT SERVICER EGFR Routine 10/09/2024 1:[address] LIGHT SERVICER DIFFERENTIAL AUTO Routine 10/09/2024 1:[address] LIGHT SERVICER TYPE AND SCREEN Timed 10/09/2024 1:[address] LIGHT SERVICER PHOSPHORUS Routine 10/09/2024 1:[address] LIGHT SERVICER MAGNESIUM Routine 10/09/2024 1:[address] LIGHT SERVICER CBC WITH AUTO DIFFERENTIAL Routine 10/09/2024 1:[address] LIGHT SERVICER BASIC METABOLIC PANEL Routine 10/09/2024 1:[address] LIGHT SERVICER POCT GLUCOSE DEVICE Routine 10/08/2024 3 :[address] LIGHT SERVICER POCT GLUCOSE DEVICE Routine 10/08/2024 10:[address] LIGHT SERVICER POCT GLUCOSE DEVICE Routine 10/08/2024 7 :[address] LIGHT SERVICER CRITICAL CARE Routine 10/08/2024 6:[address] LIGHT SERVICER Kyphosis, unspecified kyphosis type, unspecified spinal region POCT GLUCOSE DEVICE Routine 10/08/2024 3 :[address] LIGHT SERVICER CBC WITHOUT DIFFERENTIAL Routine 10/08/2024 1:[address] LIGHT SERVICER TRANSFUSE RED BLOOD CELLS Timed 10/07/2024 11:[address] LIGHT SERVICER LIDOCAINE LEVEL Timed 10/07/2024 11:[address] LIGHT SERVICER POCT GLUCOSE DEVICE Routine 10/07/2024 11:[address] LIGHT SERVICER PREPARE RBC Timed 10/07/2024 10:[address] LIGHT SERVICER CBC WITHOUT DIFFERENTIAL STAT 10/07/2024 9:[address] LIGHT SERVICER CRITICAL CARE Routine 10/07/2024 9:[address] LIGHT SERVICER Kyphosis, unspecified kyphosis type, unspecified spinal region EGFR Routine 10/07/2024 8:[address] LIGHT SERVICER DIFFERENTIAL AUTO Routine 10/07/2024 8:[address] LIGHT SERVICER PHOSPHORUS Routine 10/07/2024 8:[address] LIGHT SERVICER MAGNESIUM Routine 10/07/2024 8:[address] LIGHT SERVICER CBC WITH AUTO DIFFERENTIAL Routine 10/07/2024 8:[address] LIGHT SERVICER BASIC METABOLIC PANEL Routine 10/07/2024 8:[address] LIGHT SERVICER POCT GLUCOSE DEVICE Routine 10/07/2024 8 :[address] LIGHT SERVICER POCT GLUCOSE DEVICE Routine 10/07/2024 3 :[address] LIGHT SERVICER LIDOCAINE LEVEL STAT 10/07/2024 12:[address] LIGHT SERVICER POCT GLUCOSE DEVICE Routine 10/07/2024 11:[address] LIGHT SERVICER ECG 12-LEAD Routine 10/07/2024 9:[address] LIGHT SERVICER POCT GLUCOSE DEVICE Routine 10/07/2024 7 :[address] LIGHT SERVICER CRITICAL CARE Routine 10/07/2024 7:[address] LIGHT SERVICER Kyphosis, unspecified kyphosis type, unspecified spinal region LACTATE, WHOLE BLOOD STAT 10/07/2024 6:[address] LIGHT SERVICER CBC WITHOUT DIFFERENTIAL STAT 10/07/2024 6:[address] LIGHT SERVICER POCT GLUCOSE DEVICE Routine 10/07/2024 3 :[address] LIGHT SERVICER POCT GLUCOSE DEVICE Routine 10/06/2024 11:[address] LIGHT SERVICER CRITICAL CARE Routine 10/06/2024 9:[address] LIGHT SERVICER Kyphosis, unspecified kyphosis type, unspecified spinal region EGFR Routine 10/06/2024 9:[address] LIGHT SERVICER DIFFERENTIAL AUTO Routine 10/06/2024 9:[address] LIGHT SERVICER APTT Routine 10/06/2024 9:[address] LIGHT SERVICER PROTIME-INR Routine 10/06/2024 9:[address] LIGHT SERVICER PHOSPHORUS Routine 10/06/2024 9:[address] LIGHT SERVICER MAGNESIUM Routine 10/06/2024 9:[address] LIGHT SERVICER CBC WITH AUTO DIFFERENTIAL Routine 10/06/2024 9:[address] LIGHT SERVICER BASIC METABOLIC PANEL Routine 10/06/2024 9:[address] LIGHT SERVICER POCT GLUCOSE DEVICE Routine 10/06/2024 7 :[address] LIGHT SERVICER NEURO CT OUTSIDE REFERENCE Routine 10/06/2024 5:[address] LIGHT SERVICER NEURO CT OUTSIDE REFERENCE Routine 10/06/2024 5:[address] LIGHT SERVICER XR ABDOMEN AP 1 VIEW ED Urgent/IP Urgent 10/06/2024 1:[address] LIGHT SERVICER POCT GLUCOSE DEVICE Routine 10/06/2024 11:[address] LIGHT SERVICER CRITICAL CARE Routine 10/06/2024 7:[address] LIGHT SERVICER Kyphosis, unspecified kyphosis type, unspecified spinal region POCT GLUCOSE DEVICE Routine 10/06/2024 7 :[address] LIGHT SERVICER ECG 12-LEAD Routine 10/06/2024 6:[address] LIGHT SERVICER POCT GLUCOSE DEVICE Routine 10/06/2024 3 :[address] LIGHT SERVICER CBC WITHOUT DIFFERENTIAL Timed 10/06/2024 2:[address] LIGHT SERVICER EXTUBATION Routine 10/06/2024 12:[address] LIGHT SERVICER XR ABDOMEN AP 1 VIEW ED Urgent/IP Urgent 10/06/2024 12:[address] LIGHT SERVICER POCT GLUCOSE DEVICE Routine 10/05/2024 11:[address] LIGHT SERVICER XR ABDOMEN AP 1 VIEW ED Urgent/IP Urgent 10/05/2024 10:[address] LIGHT SERVICER CRITICAL CARE Routine 10/05/2024 10:[address] LIGHT SERVICER APTT STAT 10/05/2024 10:[address] LIGHT SERVICER PROTIME-INR STAT 10/05/2024 10:[address] LIGHT SERVICER LACTATE, WHOLE BLOOD STAT 10/05/2024 10:[address] LIGHT SERVICER BLOOD GAS, ARTERIAL STAT 10/05/2024 10:[address] LIGHT SERVICER TYPE AND SCREEN Timed 10/05/2024 10:[address] LIGHT SERVICER COVID-19 CORONAVIRUS RNA Routine 10/05/2024 10:[address] LIGHT SERVICER XR CHEST 1 VIEW IP Routine 10/05/2024 8:[address] LIGHT SERVICER LIPID PANEL STAT 10/05/2024 8:[address] LIGHT SERVICER MAGNESIUM STAT 10/05/2024 8:[address] LIGHT SERVICER PHOSPHORUS STAT 10/05/2024 8:[address] LIGHT SERVICER EGFR STAT 10/05/2024 8:[address] LIGHT SERVICER BASIC METABOLIC PANEL STAT 10/05/2024 8:[address] LIGHT SERVICER CBC WITHOUT DIFFERENTIAL STAT 10/05/2024 8:[address] LIGHT SERVICER POC BLOOD GAS AND CHEMISTRIES, ARTERIAL Routine 10/05/2024 8:[address] LIGHT SERVICER XR SCOLIOSIS AP LAT IP Routine 10/05/2024 6 :[address] LIGHT SERVICER POC BLOOD GAS AND CHEMISTRIES, ARTERIAL Routine 10/05/2024 5:[address] LIGHT SERVICER TRANSFUSE PLASMA Timed 10/05/2024 5:[address] LIGHT SERVICER XR SPINE THORACIC 2 VIEWS IP Routine 10/05/2024 4:[address] LIGHT SERVICER FL FLUOROSCOPY < 1 HOUR IP Routine 10/05/2024 4:[address] LIGHT SERVICER TRANSFUSE RED BLOOD CELLS Timed 10/05/2024 4:[address] LIGHT SERVICER POC BLOOD GAS AND CHEMISTRIES, ARTERIAL Routine 10/05/2024 4:[address] LIGHT SERVICER POC BLOOD GAS AND CHEMISTRIES, ARTERIAL Routine 10/05/2024 3:[address] LIGHT SERVICER TRANSFUSE PLASMA Timed 10/05/2024 2:[address] LIGHT SERVICER TRANSFUSE RED BLOOD CELLS Timed 10/05/2024 2:[address] LIGHT SERVICER PREPARE PLASMA STAT 10/05/2024 2:[address] LIGHT SERVICER PREPARE RBC STAT 10/05/2024 2:[address] LIGHT SERVICER POC BLOOD GAS AND CHEMISTRIES, ARTERIAL Routine 10/05/2024 2:[address] LIGHT SERVICER POCT PLATELET COUNT AND HEMATOCRIT Routine 10/05/2024 2:[address] LIGHT SERVICER TRANSFUSE PLATELETS Timed 10/05/2024 2 :[address] LIGHT SERVICER TRANSFUSE PLATELETS Timed 10/05/2024 1 :[address] LIGHT SERVICER PREPARE RBC STAT 10/05/2024 1:[address] LIGHT SERVICER PREPARE PLASMA STAT 10/05/2024 1:[address] LIGHT SERVICER PREPARE PLATELETS STAT 10/05/2024 1:[address] LIGHT SERVICER TRANSFUSE CRYOPRECIPITATE (POOLED UNITS) Timed 10/05/2024 1:[address] LIGHT SERVICER TRANSFUSE PLASMA Timed 10/05/2024 1:[address] LIGHT SERVICER PREPARE CRYOPRECIPITATE (POOLED UNITS) STAT 10/05/2024 1:[address] LIGHT SERVICER TRANSFUSE RED BLOOD CELLS Timed 10/05/2024 12:[address] LIGHT SERVICER POC BLOOD GAS AND CHEMISTRIES, ARTERIAL Routine 10/05/2024 12:[address] LIGHT SERVICER POC BLOOD GAS AND CHEMISTRIES, ARTERIAL Routine 10/05/2024 10:[address] LIGHT SERVICER OR AN PROCEDURE PLACEHOLDER Routine 10/05/2024 9:[address] LIGHT SERVICER OR AN PROCEDURE PLACEHOLDER Routine 10/05/2024 9:[address] LIGHT SERVICER OR AN PROCEDURE PLACEHOLDER Routine 10/05/2024 9:[address] LIGHT SERVICER OR AN PROCEDURE PLACEHOLDER Routine 10/05/2024 9:[address] LIGHT SERVICER OR AN PROCEDURE PLACEHOLDER Routine 10/05/2024 9:[address] LIGHT SERVICER OR AN ELECTIVE ENDOTRACHEAL AIRWAY Routine 10/05/2024 9:[address] LIGHT SERVICER PREPARE PLASMA STAT 10/05/2024 8:[address] LIGHT SERVICER POC BLOOD GAS AND CHEMISTRIES, ARTERIAL Routine 10/05/2024 8:[address] LIGHT SERVICER BONE GRAFT WITH BONE MORPHOGENIC PROTEIN 10/05/2024 7:[address] LIGHT SERVICER Kyphosis, unspecified kyphosis type, unspecified spinal region Spinal stenosis in cervical region Cervical spondylosis with myelopathy Case Notes 09/27@1632- Per Milly via case msg - Can you put this case in the depot - [facility] 09/21@1528- Per Camelia via phone call cell saver ID- [id number]- [facility] 09/03 - MISSING DPC. EMAIL SENT. [facility] 09/03 - Per Milly, case in [place] for edit. NB Special Needs Depuy Expedium, morselized allograft, local autograft, BMP 3-4L, SCM, OSI Candido table, c-arm, GW Tongs, 15 lbs traction, cell saver, microscope, 3-4 units blood,has in Depuy Expedium from prior surgery.cell saver ID- [id number] SPINAL CORD MONITORING 10/05/2024 7:[address] LIGHT SERVICER Kyphosis, unspecified kyphosis type, unspecified spinal region Spinal stenosis in cervical region Cervical spondylosis with myelopathy Case Notes 09/27@1632- Per Milly via case msg - Can you put this case in the depot - [facility] 09/21@[address] [place] [address] via phone call cell saver ID- [id number]- [facility] 09/03 - MISSING DPC. EMAIL SENT. [facility] 09/03 - Per Milly, case in [facility] for edit. NB Special Needs Depuy Expedium, morselized allograft, local autograft, BMP 3-4L, SCM, OSI Candido table, c-arm, GW Tongs, 15 lbs traction, cell saver, microscope, 3-4 units blood,has in Depuy Expedium from prior surgery.cell saver ID- [id number] LAMINECTOMY CERVICAL - POSTERIOR 10/05/2024 7:[address] LIGHT SERVICER Kyphosis, unspecified kyphosis type, unspecified spinal region Spinal stenosis in cervical region Cervical spondylosis with myelopathy Case Notes 09/27@1632- [facility] via case msg - Can you put this case in the depot - [facility] 09/21@1528[facility] via phone call cell saver ID- [id number]- [facility] 09/03 - MISSING DPC. EMAIL SENT. [facility] 09/03 - Per Milly, case in [facility] for edit. NB Special Needs Depuy Expedium, morselized allograft, local autograft, BMP 3-4L, SCM, OSI Candido table, c-arm, GW Tongs, 15 lbs traction, cell saver, microscope, 3-4 units blood,has in Depuy Expedium from prior surgery.cell saver ID- [id number] OSTEOTOMY POSTERIOR SPINAL 10/05/2024 7:[address] LIGHT SERVICER Kyphosis, unspecified kyphosis type, unspecified spinal region Spinal stenosis in cervical region Cervical spondylosis with myelopathy Case Notes 09/27@1632- Per [facility] via case msg - Can you put this case in the depot - [facility] 09/21@1528[facility] via phone call cell saver ID- [id number]- [facility] 09/03 - MISSING DPC. EMAIL SENT. 09/03 - Per Milly, case in [facility] for edit. NB Special Needs Depuy Expedium, morselized allograft, local autograft, BMP 3-4L, SCM, OSI Candido table, c-arm, GW Tongs, 15 lbs traction, cell saver, microscope, 3-4 units blood,has in Depuy Expedium from prior surgery.cell saver ID- [id number] FUSION DECOMPRESSION LAMINECTOMY WITH INSTRUMENTATION - DEPUY EXPEDIUM 10/05/2024 7:[address] LIGHT SERVICER Kyphosis, unspecified kyphosis type, unspecified spinal region Spinal stenosis in cervical region Cervical spondylosis with myelopathy Case Notes 09/27@1632- Per Milly via case msg - Can you put this case in the depot - [facility] 09/21@1528- Per [facility] via phone call cell saver ID- [id number]- [facility] 09/03 - MISSING DPC. EMAIL SENT. [place] 09/03 - Per Milly, case in [place] for edit. NB Special Needs Depuy Expedium, morselized allograft, local autograft, BMP 3-4L, SCM, OSI Candido table, c-arm, GW Tongs, 15 lbs traction, cell saver, microscope, 3-4 units blood,has in Depuy Expedium from prior surgery.cell saver ID- [id number] REMOVAL HARDWARE SPINE 10/05/2024 7:[address] LIGHT SERVICER Kyphosis, unspecified kyphosis type, unspecified spinal region Spinal stenosis in cervical region Cervical spondylosis with myelopathy Case Notes 09/27@1632- Per Milly via case msg - Can you put this case in the depot - [facility] 09/21@1528- Per [facility] via phone call cell saver ID- [id number]- [facility] 09/03 - MISSING DPC. EMAIL SENT. [place] 09/03 - Per Milly, case in [place] for edit. NB Special Needs Depuy Expedium, morselized allograft, local autograft, BMP 3-4L, SCM, OSI Candido table, c-arm, GW Tongs, 15 lbs traction, cell saver, microscope, 3-4 units blood,has in Depuy Expedium from prior surgery.cell saver ID- [id number] TYPE AND SCREEN STAT 10/05/2024 6:[address] LIGHT SERVICER PREPARE RBC Timed 10/05/2024 5:[address] LIGHT SERVICER CENTRAL LINE PLACEMENT > 5 YEARS Schedule Routine, Read Routine (OP Routine) 10/04/2024 1:[address] LIGHT SERVICER Fusion of lumbar spine CT THORACIC AND LUMBAR SPINE WO CONTRAST Schedule Routine, Read Routine (OP Routine) 10/04/2024 10:[address] LIGHT SERVICER Acquired kyphosis Thoracic spine pain Lumbar spine pain CT THORACIC SPINE WO CONTRAST Schedule NEEL, Read Routine (Patient lives out of area) 09/23/2024 8:[address] LIGHT SERVICER Acquired kyphosis CT LUMBAR SPINE WO CONTRAST Schedule Routine, Read Routine (OP Routine) 09/23/2024 8:[address] LIGHT SERVICER Acquired kyphosis EGFR Routine 09/15/2024 1:[address] LIGHT SERVICER Kyphosis, unspecified kyphosis type, unspecified spinal region Spinal stenosis in cervical region Cervical spondylosis with myelopathy DIFFERENTIAL AUTO Routine 09/15/2024 1:[address] LIGHT SERVICER Kyphosis, unspecified kyphosis type, unspecified spinal region Spinal stenosis in cervical region Cervical spondylosis with myelopathy TYPE AND SCREEN 14 DAY Routine 09/15/2024 1:[address] LIGHT SERVICER Preoperative testing ERYTHROCYTE SEDIMENTATION RATE Routine 09/15/2024 1:[address] LIGHT SERVICER Kyphosis, unspecified kyphosis type, unspecified spinal region Spinal stenosis in cervical region Cervical spondylosis with myelopathy VITAMIN D 25 HYDROXY Routine 09/15/2024 1:[address] LIGHT SERVICER Kyphosis, unspecified kyphosis type, unspecified spinal region Spinal stenosis in cervical region Cervical spondylosis with myelopathy HEMOGLOBIN A1C Routine 09/15/2024 1:[address] LIGHT SERVICER Kyphosis, unspecified kyphosis type, unspecified spinal region Spinal stenosis in cervical region Cervical spondylosis with myelopathy CRP (ACUTE PHASE) Routine 09/15/2024 1:[address] LIGHT SERVICER Kyphosis, unspecified kyphosis type, unspecified spinal region Spinal stenosis in cervical region Cervical spondylosis with myelopathy CBC WITH AUTO DIFFERENTIAL Routine 09/15/2024 1:[address] LIGHT SERVICER Kyphosis, unspecified kyphosis type, unspecified spinal region Spinal stenosis in cervical region Cervical spondylosis with myelopathy COMPREHENSIVE METABOLIC PANEL Routine 09/15/2024 1:[address] LIGHT SERVICER Kyphosis, unspecified kyphosis type, unspecified spinal region Spinal stenosis in cervical region Cervical spondylosis with myelopathy NICOTINE METABOLITE SCREEN, URINE Routine 09/15/2024 1:[address] LIGHT SERVICER Kyphosis, unspecified kyphosis type, unspecified spinal region Spinal stenosis in cervical region Cervical spondylosis with myelopathy URINALYSIS AND REFLEX TO MICROSCOPIC AND CULTURE Routine 09/15/2024 1:[address] LIGHT SERVICER Kyphosis, unspecified kyphosis type, unspecified spinal region Spinal stenosis in cervical region Cervical spondylosis with myelopathy XR SCOLIOSIS 6 OR MORE VIEWS Schedule Routine, Read Routine (OP Routine) 09/15/2024 9:[address] LIGHT SERVICER Acquired kyphosis DEXA AXIAL SKELETON BONE DENSITY 1 OR MORE SITES Schedule Routine, Read Routine (OP Routine) 07/23/2024 3:[address] LIGHT SERVICER Osteopenia, unspecified location Age-related osteoporosis without current pathological fracture from Last 3 Months or Most Recently Relevant to Health Maintenance Results * XR Scoliosis Ap and Lateral (11/10/2024 1:33 PM CDT) Anatomical Region Laterality Modality Spine N/A Computed Radiogr aphy 11/10/2024 1:45 PM CDT Impressions 11/10/2024 1:45 PM CDT 1. Unchanged revision combined anterior and posterior instrumented fusion from C2 through the pelvis Electronically signed by: Don Ro MD Narrative 11/10/2024 1:45 PM CDT EXAMINATION: XR SCOLIOSIS AP AND LATERAL HISTORY: Back pain. FINDINGS: Comparison to 10/19/2024. Unchanged revision posterior instrumented fusion from C2 through S1 with bilateral iliac screws. Unchanged partial T3 corpectomy with cage placement. Unchanged combined anterior discectomy and interbody fusion from L4-S1. Discontinuous jacqueline at the left L4 is unchanged. Hardware is intact. Unchanged mild compression fracture of T11 without interval height loss. Partially visualized left total hip arthroplasty. Moderate right hip osteoarthritis. Procedure Note Don Ro MD - 11/10/2024 EXAMINATION: XR SCOLIOSIS AP AND LATERAL HISTORY: Back pain. FINDINGS: Comparison to 10/19/2024. Unchanged revision posterior instrumented fusion from C2 through S1 with bilateral iliac screws. Unchanged partial T3 corpectomy with cage placement. Unchanged combined anterior discectomy and interbody fusion from L4-S1. Discontinuous jacqueline at the left L4 is unchanged. Hardware is intact. Unchanged mild compression fracture of T11 without interval height loss. Partially visualized left total hip arthroplasty. Moderate right hip osteoarthritis. IMPRESSION: 1. Unchanged revision combined anterior and posterior instrumented fusion from C2 through the pelvis Electronically signed by: Don Ro MD Randell Corona MD IMG XR PROCEDURES Fi nal Result * (ABNORMAL) Protime-INR (10/29/2024 4:48 AM CDT) PT 26.8(H) 9.7 - 13.0 sec INR 2.44(H) 0.90 - 1.20 [facility] Comment: Interpretive data Oral anticoagulant therapeutic ranges: Venous thromboembolism prophylaxis or treatment: 2.0-3.0 CARDIOLOGY Standard range: 2.0-3.0 High-intensity range: 2.5-3.5 Refer to indication-specific guidelines for appropriate target ranges for prosthetic heart valve replacement. Current interpretive data was last revised on 2019. Blood 10/29/2024 4:48 AM CDT 10/29/2024 5:07 AM CDT Yovana Freitas MD LAB BLOOD ORDERAB LES Final Result [facility] Department [place] [address] * XR Chest 1 View (10/28/2024 10:11 AM CDT) Anatomical Region Laterality Modality Body, Chest N/A Computed Radiogr aphy 10/28/2024 11:4 9 AM CDT Impressions 10/28/2024 11:55 AM CDT The current study is compared with the prior radiograph dated 10/20/2024. Spinal fusion and instrumentation. Unchanged volume loss in both lung bases. Stable right pleural effusion. No left pleural effusion. Unchanged mild pulmonary edema. No pneumothorax. Stable cardiomediastinal silhouette. Dictated by: Mckenzie Cortez M.D. The radiology attending physician has personally reviewed this study, and had reviewed and/or edited this written report and agrees with it. Electronically signed by: Danny Mooney M.D. Narrative 10/28/2024 11:55 AM CDT EXAMINATION: 1 view chest radiograph Procedure Note Danny Mooney MD - 10/28/2024 EXAMINATION: 1 view chest radiograph IMPRESSION: The current study is compared with the prior radiograph dated 10/20/2024. Spinal fusion and instrumentation. Unchanged volume loss in both lung bases. Stable right pleural effusion. No left pleural effusion. Unchanged mild pulmonary edema. No pneumothorax. Stable cardiomediastinal silhouette. Dictated by: Mckenzie Cortez M.D. The radiology attending physician has personally reviewed this study, and had reviewed and/or edited this written report and agrees with it. Electronically signed by: Danny Mooney M.D. Yovana Freitas MD IMG XR PROCEDURES Final Result * eGFR (10/27/2024 10:39 PM CDT) eGFR >90 >=60 mL/min/1. 73 m2 Comment: Interpretive Data Reference Interval Normal >/= 90 mL/min/1.73m2 Mildly decreased* 60 - 89 mL/min/1.73m2 Mildly to moderately decreased 45 - 59 mL/min/1.73m2 Moderately to severely decreased 30 - 44 mL/min/1.73m2 Severely decreased 15 - 29 mL/min/1.73m2 Kidney Failure < 15 mL/min/1.73m2 *Relative to young adult level Estimated glomerular filtration rate is determined by the 2020 CKD-EPI equation recommended by the National [employer] (A Unifying Approach to GFR Estimation: Recommendations of the NKF-ASK Task Force on Reassessing the Inclusion of Race in Diagnosing Kidney Disease, JASN 2020). The CKD-EPI equation should not be used for patients with unstable renal function and has not been validated in children and those over 70. Current interpretive data was last reviewed 2021. Blood 10/27/2024 10:3 9 PM CDT 10/27/2024 11:35 PM CDT Yovana Freitas MD LAB BLOOD ORDERAB LES Final Result Performing Organization Address [facility] de Phone Number [facility] Department [place] [address] * (ABNORMAL) Protime-INR (10/27/2024 10:39 PM CDT) Pathologist [facility] PT 18.5(H) 9.7 - 13.0 sec INR 1.69(H) 0.90 - 1.20 [facility] Comment: Interpretive data Oral anticoagulant therapeutic ranges: Venous thromboembolism prophylaxis or treatment: 2.0-3.0 CARDIOLOGY Standard range: 2.0-3.0 High-intensity range: 2.5-3.5 Refer to indication-specific guidelines for appropriate target ranges for prosthetic heart valve replacement. Current interpretive data was last revised on 2019. Blood 10/27/2024 10:3 9 PM CDT 10/27/2024 11:47 PM CDT Yovana Freitas MD LAB BLOOD ORDERAB LES Final Result Performing Organization Address [facility] de Phone Number [facility] [place] [address] * (ABNORMAL) CBC without differential (10/27/2024 10:39 PM CDT) WBC 9.6 3.8 - 9.9 K/cumm Hgb 10.3(L) 11.9 - 15.5 g/dL [facility] Hct 32.4(L) 35.6 - 45.5 % [facility] Plt 631(H) 150 - 400 K/cumm [facility] MPV 9.4 9.1 - 12.3 fL [facility] RBC 3.61(L) 3.90 - 5.20 M/cumm [facility] MCV 89.8 81.3 - 96.4 fL [facility] MCH 28.5 27.1 - 33.3 pg [facility] MCHC 31.8(L) 32.3 - 35.7 g/dL [facility] RDW CV 18.3(H) 11.1 - 14.9 % [facility] RDW SD 55.8(H) 35.7 - 48.1 fL [facility] NRBC abs 0.06(H) 0.00 - 0.01 K/cumm [facility] Blood 10/27/2024 10:3 9 PM CDT 10/27/2024 11:35 PM CDT Yovana Freitas MD LAB BLOOD ORDERAB LES Final Result [facility] [place] [address] * (ABNORMAL) Comprehensive metabolic panel (10/27/2024 10:39 PM CDT) Sodium 139 135 - 145 mmol/L Potassium, pl 3.9 3.3 - 4.9 mmol/L [facility] Chloride 101 97 - 110 mmol/L [facility] CO2 24 22 - 32 mmol/L [facility] Anion gap 14 2 - 15 mmol/L [facility] BUN 14 6 - 25 mg/dL [facility] Creatinine 0.50(L) 0.60 - 1.10 mg/dL [facility] Glucose 99 70 - 199 mg/dL [facility] Comment: Interpretive Data Fasting glucose >/= 126 mg/dl is diagnostic for diabetes. Fasting is defined as no caloric intake for at least 8 hours. Fasting glucose between 100 mg/dl to 125 mg/dl is diagnostic of prediabetes. In a patient with classic symptoms of hyperglycemia or hyperglycemic crisis, a random glucose >/= 200 mg/dl is diagnostic for diabetes. In the absence of unequivocal hyperglycemia, results should be confirmed by repeat testing. The classification and Diagnosis of Diabetes Diabetes Care 2021; 46: S19-S40. Current interpretive data was last revised 2022. Calcium 7.6(L) 8.5 - 10.3 mg/dL [facility] Bilirubin, total 0.2 0.1 - 1.2 mg/dL [facility] Protein, pl 5.7(L) 6.5 - 8.5 g/dL [facility] Albumin 2.5(L) 3.5 - 5.0 g/dL [facility] Alk phos 136(H) 40 - 130 Units/L [facility] ALT 23 7 - 45 Units/L [facility] AST 26 10 - 45 Units/L [facility] Blood 10/27/2024 10:3 9 PM CDT 10/27/2024 11:35 PM CDT Yovana Freitas MD LAB BLOOD ORDERAB LES Final Result Performing Organization Address [facility] de Phone Number [facility] [place] [address] * Protime-INR (10/26/2024 10:26 PM CDT) PT 12.8 9.7 - 13.0 sec INR 1.18 0.90 - 1.20 [facility] Comment: Interpretive data Oral anticoagulant therapeutic ranges: Venous thromboembolism prophylaxis or treatment: 2.0-3.0 CARDIOLOGY Standard range: 2.0-3.0 High-intensity range: 2.5-3.5 Refer to indication-specific guidelines for appropriate target ranges for prosthetic heart valve replacement. Current interpretive data was last revised on 2019. Blood 10/26/2024 10:2 6 PM CDT 10/26/2024 11:39 PM CDT Yovana Freitas MD LAB BLOOD ORDERAB LES Final Result Performing Organization Address [facility]/ZIP Co de Phone Number [facility] [place] [address] * Type and screen (10/26/2024 8:39 PM CDT) ABO Rh A Positive [place], indirect Negative [facility] Blood 10/26/2024 8:39 PM CDT 10/26/2024 9:51 PM CDT Narrative [facility] - 10/26/2024 11:06 PM CDT Has the patient had Daratumumab or Isatuximab in the past 6 months?->Unknown [place] [facility] LAB BLOOD BANK TEST ORDERABLES Final Result [facility] [place] [address] * eGFR (10/25/2024 9:56 PM CDT) [facility] eGFR >90 >=60 mL/min/1. 73 m2 Comment: Interpretive Data Reference Interval Normal >/= 90 mL/min/1.73m2 Mildly decreased* 60 - 89 mL/min/1.73m2 Mildly to moderately decreased 45 - 59 mL/min/1.73m2 Moderately to severely decreased 30 - 44 mL/min/1.73m2 Severely decreased 15 - 29 mL/min/1.73m2 Kidney Failure < 15 mL/min/1.73m2 *Relative to young adult level Estimated glomerular filtration rate is determined by the 2020 CKD-EPI equation recommended by the National Kidney Foundation (A Unifying Approach to GFR Estimation: Recommendations of the NKF-ASK Task Force on Reassessing the Inclusion of Race in Diagnosing Kidney Disease, JASN 202). The CKD-EPI equation should not be used for patients with unstable renal function and has not been validated in children and those over 70. Current interpretive data was last reviewed 2021. Blood 10/25/2024 9:56 PM CDT 10/25/2024 10:13 PM CDT us Yovana Freitas MD LAB BLOOD ORDERAB LES Final Result [facility] [place] [address] * Protime-INR (10/25/2024 9:56 PM CDT) Pathologist [facility] PT 11.3 9.7 - 13.0 sec INR 1.05 0.90 - 1.20 [facility] Comment: Interpretive data Oral anticoagulant therapeutic ranges: Venous thromboembolism prophylaxis or treatment: 2.0-3.0 CARDIOLOGY Standard range: 2.0-3.0 High-intensity range: 2.5-3.5 Refer to indication-specific guidelines for appropriate target ranges for prosthetic heart valve replacement. Current interpretive data was last revised on 2019. Blood 10/25/2024 9:56 PM CDT 10/25/2024 10:16 PM CDT Yovana Freitas MD LAB BLOOD ORDERAB LES Final Result Performing Organization Address City/[facility]/ZIP Co de Phone Number [facility] [place] [address] * (ABNORMAL) CBC without differential (10/25/2024 9:56 PM CDT) Pathologist [facility] WBC 10.2(H) 3.8 - 9.9 K/cumm Hgb 9.8(L) 11.9 - 15.5 g/dL [facility] Hct 30.6(L) 35.6 - 45.5 % [facility] Plt 627(H) 150 - 400 K/cumm [facility] MPV 9.2 9.1 - 12.3 fL [facility] RBC 3.49(L) 3.90 - 5.20 M/cumm [facility] MCV 87.7 81.3 - 96.4 fL [facility] MCH 28.1 27.1 - 33.3 pg [facility] MCHC 32.0(L) 32.3 - 35.7 g/dL [facility] RDW CV 17.4(H) 11.1 - 14.9 % [facility] RDW SD 53.2(H) 35.7 - 48.1 fL [facility] NRBC abs 0.04(H) 0.00 - 0.01 K/cumm [facility] Blood 10/25/2024 9:56 PM CDT 10/25/2024 10:13 PM CDT us Yovana Freitas MD LAB BLOOD ORDERAB LES Final Result [facility] [place] [address] * Phosphorus (10/25/2024 9:56 PM CDT) [facility] Phosphorus, pl 3.1 2.3 - 4.5 mg/dL Blood 10/25/2024 9:56 PM CDT 10/25/2024 10:07 PM CDT us Yovana Freitas MD LAB BLOOD ORDERAB LES Final Result Performing Organization Address City/[facility]/ZIP Co de Phone Number [facility] [place] [address] * (ABNORMAL) Comprehensive metabolic panel (10/25/2024 9:56 PM CDT) [facility] Sodium 143 135 - 145 mmol/L Potassium, pl 4.2 3.3 - 4.9 mmol/L [facility] Chloride 106 97 - 110 mmol/L [facility] CO2 26 22 - 32 mmol/L [facility] Anion gap 11 2 - 15 mmol/L [facility] BUN 15 6 - 25 mg/dL [facility] Creatinine 0.48(L) 0.60 - 1.10 mg/dL [facility] Glucose 105 70 - 199 mg/dL [facility] Comment: Interpretive Data Fasting glucose >/= 126 mg/dl is diagnostic for diabetes. Fasting is defined as no caloric intake for at least 8 hours. Fasting glucose between 100 mg/dl to 125 mg/dl is diagnostic of prediabetes. In a patient with classic symptoms of hyperglycemia or hyperglycemic crisis, a random glucose >/= 200 mg/dl is diagnostic for diabetes. In the absence of unequivocal hyperglycemia, results should be confirmed by repeat testing. The classification and Diagnosis of Diabetes Diabetes Care 2021; 46: S19-S40. Current interpretive data was last revised 2022. Calcium 7.8(L) 8.5 - 10.3 mg/dL [facility] Bilirubin, total 0.2 0.1 - 1.2 mg/dL [facility] Protein, pl 4.9(L) 6.5 - 8.5 g/dL [facility] Albumin 2.1(L) 3.5 - 5.0 g/dL [facility] Alk phos 107 40 - 130 Units/L [facility] ALT 20 7 - 45 Units/L [facility] AST 18 10 - 45 Units/L [facility] [place] Blood 10/25/2024 9:56 PM CDT 10/25/2024 10:07 PM CDT us Yovana Freitas MD LAB BLOOD ORDERAB LES Final Result [facility] [place] [address] * eGFR (10/24/2024 10:20 PM CDT) eGFR >90 >=60 mL/min/1. 73 m2 Comment: Interpretive Data Reference Interval Normal >/= 90 mL/min/1.73m2 Mildly decreased* 60 - 89 mL/min/1.73m2 Mildly to moderately decreased 45 - 59 mL/min/1.73m2 Moderately to severely decreased 30 - 44 mL/min/1.73m2 Severely decreased 15 - 29 mL/min/1.73m2 Kidney Failure < 15 mL/min/1.73m2 *Relative to young adult level Estimated glomerular filtration rate is determined by the 2020 CKD-EPI equation recommended by the National Kidney Foundation (A Unifying Approach to GFR Estimation: Recommendations of the NKF-ASK Task Force on Reassessing the Inclusion of Race in Diagnosing Kidney Disease, JASN 202). The CKD-EPI equation should not be used for patients with unstable renal function and has not been validated in children and those over 70. Current interpretive data was last reviewed 2021. Blood 10/24/2024 10:2 0 PM CDT 10/24/2024 10:49 PM CDT us Scott Rea MD LAB BLOOD ORDERABLES Final R esult [facility] [place] [address] * (ABNORMAL) Differential, auto (10/24/2024 10:20 PM CDT) Neutrophil abs 5.7 1.5 - 6.5 K/cumm Imm gran abs 0.3(H) 0.0 - 0.1 K/cumm [facility] Lymphocyte abs 0.7(L) 0.8 - 3.3 K/cumm [facility] Monocyte abs 0.6 0.2 - 0.8 K/cumm [facility] Eosinophil abs 0.1 0.0 - 0.5 K/cumm [facility] Basophil abs 0.1 0.0 - 0.1 K/cumm [facility] Neutrophil pct 77.6 % [facility] Comment: Interpretive Data Percent cell count reference ranges are not reported, since discordance with absolute values may lead to misinterpretation of CBC data. Current Interpretive Data was last revised on 2017. Imm gran pct 3.5 % [facility] Comment: Interpretive Data Percent cell count reference ranges are not reported, since discordance with absolute values may lead to misinterpretation of CBC data. Current Interpretive Data was last revised on 2017. Lymphocyte pct 9.4 % [facility] [place] Comment: Interpretive Data Percent cell count reference ranges are not reported, since discordance with absolute values may lead to misinterpretation of CBC data. Current Interpretive Data was last revised on 2017. Monocyte pct 7.8 % [facility] [place] Comment: Interpretive Data Percent cell count reference ranges are not reported, since discordance with absolute values may lead to misinterpretation of CBC data. Current Interpretive Data was last revised on 2017. Eosinophil pct 1.0 % [facility] Comment: Interpretive Data Percent cell count reference ranges are not reported, since discordance with absolute values may lead to misinterpretation of CBC data. Current Interpretive Data was last revised on 2017. Basophil pct 0.7 % [facility] Comment: Interpretive Data Percent cell count reference ranges are not reported, since discordance with absolute values may lead to misinterpretation of CBC data. Current Interpretive Data was last revised on 2017. Blood 10/24/2024 10:2 0 PM CDT 10/24/2024 10:49 PM CDT us [place] [facility] LAB BLOOD ORDERABLE S Final Result [facility] [place] [address] * (ABNORMAL) CBC with auto differential (10/24/2024 10:20 PM CDT) WBC 7.4 3.8 - 9.9 K/cumm Hgb 9.5(L) 11.9 - 15.5 g/dL [facility] Hct 29.3(L) 35.6 - 45.5 % [facility] Plt 499(H) 150 - 400 K/cumm [facility] MPV 9.4 9.1 - 12.3 fL [facility] RBC 3.29(L) 3.90 - 5.20 M/cumm [facility] MCV 89.1 81.3 - 96.4 fL [facility] MCH 28.9 27.1 - 33.3 pg [facility] MCHC 32.4 32.3 - 35.7 g/dL [facility] RDW CV 17.2(H) 11.1 - 14.9 % [facility] RDW SD 55.1(H) 35.7 - 48.1 fL [facility] NRBC abs 0.00 0.00 - 0.01 K/cumm [facility] Blood 10/24/2024 10:2 0 PM CDT 10/24/2024 10:49 PM CDT [place] [facility] LAB BLOOD ORDERABLE S Final Result [facility] [place] [address] * Phosphorus (10/24/2024 10:20 PM CDT) Pathologist [facility] Phosphorus, pl 3.0 2.3 - 4.5 mg/dL Blood 10/24/2024 10:2 0 PM CDT 10/24/2024 10:49 PM CDT [place] D[facility] LAB BLOOD ORDERABLE S Final Result Performing Organization Address City/[facility] de Phone Number [facility] [place] [address] * (ABNORMAL) Comprehensive metabolic panel (10/24/2024 10:20 PM CDT) [facility] Sodium 144 135 - 145 mmol/L Potassium, pl 4.3 3.3 - 4.9 mmol/L [facility] Chloride 107 97 - 110 mmol/L [facility] CO2 26 22 - 32 mmol/L [facility] Anion gap 11 2 - 15 mmol/L [facility] BUN 15 6 - 25 mg/dL [facility] Creatinine 0.36(L) 0.60 - 1.10 mg/dL [facility] Glucose 127 70 - 199 mg/dL [facility] Comment: Interpretive Data Fasting glucose >/= 126 mg/dl is diagnostic for diabetes. Fasting is defined as no caloric intake for at least 8 hours. Fasting glucose between 100 mg/dl to 125 mg/dl is diagnostic of prediabetes. In a patient with classic symptoms of hyperglycemia or hyperglycemic crisis, a random glucose >/= 200 mg/dl is diagnostic for diabetes. In the absence of unequivocal hyperglycemia, results should be confirmed by repeat testing. The classification and Diagnosis of Diabetes Diabetes Care 2021; 46: S19-S40. Current interpretive data was last revised 2022. Calcium 7.8(L) 8.5 - 10.3 mg/dL [facility] Bilirubin, total 0.2 0.1 - 1.2 mg/dL [facility] Protein, pl 4.7(L) 6.5 - 8.5 g/dL [facility] Albumin 2.1(L) 3.5 - 5.0 g/dL [facility] Alk phos 107 40 - 130 Units/L [facility] ALT 18 7 - 45 Units/L [facility] AST 19 10 - 45 Units/L [facility] Blood 10/24/2024 10:2 0 PM CDT 10/24/2024 10:49 PM CDT us Scott Rea MD LAB BLOOD ORDERABLES Final R esult [facility] [place] [address] * eGFR (10/23/2024 9:32 PM CDT) eGFR >90 >=60 mL/min/1. 73 m2 Comment: Interpretive Data Reference Interval Normal >/= 90 mL/min/1.73m2 Mildly decreased* 60 - 89 mL/min/1.73m2 Mildly to moderately decreased 45 - 59 mL/min/1.73m2 Moderately to severely decreased 30 - 44 mL/min/1.73m2 Severely decreased 15 - 29 mL/min/1.73m2 Kidney Failure < 15 mL/min/1.73m2 *Relative to young adult level Estimated glomerular filtration rate is determined by the 2020 CKD-EPI equation recommended by the National Kidney Foundation (A Unifying Approach to GFR Estimation: Recommendations of the NKF-ASK Task Force on Reassessing the Inclusion of Race in Diagnosing Kidney Disease, JASN 2020). The CKD-EPI equation should not be used for patients with unstable renal function and has not been validated in children and those over 70. Current interpretive data was last reviewed 2021. Blood 10/23/2024 9:32 PM CDT 10/23/2024 9:46 PM CDT us Scott Rea MD LAB BLOOD ORDERABLES Final R esult [facility] [place] [address] * (ABNORMAL) Differential, auto (10/23/2024 9:32 PM CDT) Neutrophil abs 6.8(H) 1.5 - 6.5 K/cumm Imm gran abs 0.4(H) 0.0 - 0.1 K/cumm [facility] Lymphocyte abs 1.1 0.8 - 3.3 K/cumm [facility] Monocyte abs 0.7 0.2 - 0.8 K/cumm [facility] Eosinophil abs 0.1 0.0 - 0.5 K/cumm [facility] Basophil abs 0.1 0.0 - 0.1 K/cumm [facility] Neutrophil pct 75.3 % [facility] Comment: Interpretive Data Percent cell count reference ranges are not reported, since discordance with absolute values may lead to misinterpretation of CBC data. Current Interpretive Data was last revised on 2017. Imm gran pct 4.2 % [facility] Comment: Interpretive Data Percent cell count reference ranges are not reported, since discordance with absolute values may lead to misinterpretation of CBC data. Current Interpretive Data was last revised on 2017. Lymphocyte pct 11.9 % [facility] Comment: Interpretive Data Percent cell count reference ranges are not reported, since discordance with absolute values may lead to misinterpretation of CBC data. Current Interpretive Data was last revised on 2017. Monocyte pct 7.3 % [facility] Comment: Interpretive Data Percent cell count reference ranges are not reported, since discordance with absolute values may lead to misinterpretation of CBC data. Current Interpretive Data was last revised on 2017. Eosinophil pct 0.6 % [facility] Comment: Interpretive Data Percent cell count reference ranges are not reported, since discordance with absolute values may lead to misinterpretation of CBC data. Current Interpretive Data was last revised on 2017. Basophil pct 0.7 % [facility] Comment: Interpretive Data Percent cell count reference ranges are not reported, since discordance with absolute values may lead to misinterpretation of CBC data. Current Interpretive Data was last revised on 2017. Blood 10/23/2024 9:32 PM CDT 10/23/2024 9:53 PM CDT us [place] [facility] LAB BLOOD ORDERABLE S Final Result [facility] [place] [address] * (ABNORMAL) CBC with auto differential (10/23/2024 9:32 PM CDT) Pathologist [facility] WBC 9.0 3.8 - 9.9 K/cumm Hgb 10.2(L) 11.9 - 15.5 g/dL [facility] Hct 32.4(L) 35.6 - 45.5 % [facility] Plt 542(H) 150 - 400 K/cumm [facility] MPV 9.5 9.1 - 12.3 fL [facility] RBC 3.68(L) 3.90 - 5.20 M/cumm [facility] MCV 88.0 81.3 - 96.4 fL [facility] MCH 27.7 27.1 - 33.3 pg [facility] MCHC 31.5(L) 32.3 - 35.7 g/dL [facility] RDW CV 17.5(H) 11.1 - 14.9 % [facility] RDW SD 54.6(H) 35.7 - 48.1 fL [facility] NRBC abs 0.04(H) 0.00 - 0.01 K/cumm [facility] Blood 10/23/2024 9:32 PM CDT 10/23/2024 9:53 PM CDT [place] [facility] LAB BLOOD ORDERABLE S Final Result Performing Organization Address [facility]/ZIP Co de Phone Number [facility] [place] [address] * Type and screen (10/23/2024 9:32 PM CDT) [facility] [place], indirect Negative ABO Rh A Positive [facility] Blood 10/23/2024 9:32 PM CDT 10/23/2024 9:53 PM CDT Narrative [facility] - 10/23/2024 10:49 PM CDT Has the patient had Daratumumab or Isatuximab in the past 6 months?->Unknown [place] [facility] LAB BLOOD BANK TEST ORDERABLES Final Result Performing Organization Address [facility] Co de Phone Number [facility] [place] [address] * Phosphorus (10/23/2024 9:32 PM CDT) [facility] Phosphorus, pl 2.9 2.3 - 4.5 mg/dL Blood 10/23/2024 9:32 PM CDT 10/23/2024 9:46 PM CDT [place] [facility] LAB BLOOD ORDERABLE S Final Result Performing Organization Address City/[facility] Co de Phone Number [facility] [place] [address] * (ABNORMAL) Comprehensive metabolic panel (10/23/2024 9:32 PM CDT) [facility] Sodium 137 135 - 145 mmol/L Potassium, pl 4.7 3.3 - 4.9 mmol/L [facility] Chloride 104 97 - 110 mmol/L [facility] CO2 24 22 - 32 mmol/L [facility] Anion gap 9 2 - 15 mmol/L [facility] BUN 13 6 - 25 mg/dL [facility] Creatinine 0.39(L) 0.60 - 1.10 mg/dL [facility] Glucose 141 70 - 199 mg/dL [facility] Comment: Interpretive Data Fasting glucose >/= 126 mg/dl is diagnostic for diabetes. Fasting is defined as no caloric intake for at least 8 hours. Fasting glucose between 100 mg/dl to 125 mg/dl is diagnostic of prediabetes. In a patient with classic symptoms of hyperglycemia or hyperglycemic crisis, a random glucose >/= 200 mg/dl is diagnostic for diabetes. In the absence of unequivocal hyperglycemia, results should be confirmed by repeat testing. The classification and Diagnosis of Diabetes Diabetes Care 202; 46: S19-S40. Current interpretive data was last revised 2022. Calcium 7.8(L) 8.5 - 10.3 mg/dL [facility] Bilirubin, total 0.2 0.1 - 1.2 mg/dL [facility] Protein, pl 5.2(L) 6.5 - 8.5 g/dL [facility] Albumin 2.2(L) 3.5 - 5.0 g/dL [facility] Alk phos 119 40 - 130 Units/L [facility] ALT 23 7 - 45 Units/L [facility] AST 30 10 - 45 Units/L [facility] Blood 10/23/2024 9:32 PM CDT 10/23/2024 9:46 PM CDT us Scott Rea MD LAB BLOOD ORDERABLES Final R esult [facility] Department [place] [address] * Calcium, ionized (10/23/2024 6:22 AM CDT) Calcium, Ionized 4.59 4.50 - 5.10 mg/dL Blood 10/23/2024 6:22 AM CDT 10/23/2024 6:25 AM CDT us Mio Lebron PhD LAB BLOOD ORDERABLES Final Result Performing Organization Address [facility] de Phone Number [facility] [place] [address] * eGFR (10/22/2024 8:47 PM CDT) Pathologist [facility] eGFR >90 >=60 mL/min/1. 73 m2 Comment: Interpretive Data Reference Interval Normal >/= 90 mL/min/1.73m2 Mildly decreased* 60 - 89 mL/min/1.73m2 Mildly to moderately decreased 45 - 59 mL/min/1.73m2 Moderately to severely decreased 30 - 44 mL/min/1.73m2 Severely decreased 15 - 29 mL/min/1.73m2 Kidney Failure < 15 mL/min/1.73m2 *Relative to young adult level Estimated glomerular filtration rate is determined by the 2020 CKD-EPI equation recommended by the National Kidney Foundation (A Unifying Approach to GFR Estimation: Recommendations of the NKF-ASK Task Force on Reassessing the Inclusion of Race in Diagnosing Kidney Disease, JASN 2020). The CKD-EPI equation should not be used for patients with unstable renal function and has not been validated in children and those over 70. Current interpretive data was last reviewed 2021. Blood 10/22/2024 8:47 PM CDT 10/22/2024 9:33 PM CDT us Scott Rea MD LAB BLOOD ORDERABLES Final R esult Performing Organization Address City/[facility] Co de Phone Number [facility] [place] [address] * (ABNORMAL) Differential, auto (10/22/2024 8:47 PM CDT) Pathologist [facility] Neutrophil abs 6.8(H) 1.5 - 6.5 K/cumm Imm gran abs 0.6(H) 0.0 - 0.1 K/cumm [facility] Lymphocyte abs 0.7(L) 0.8 - 3.3 K/cumm [facility] Monocyte abs 0.8 0.2 - 0.8 K/cumm [facility] Eosinophil abs 0.1 0.0 - 0.5 K/cumm [facility] Basophil abs 0.1 0.0 - 0.1 K/cumm [facility] Neutrophil pct 75.6 % [facility] Comment: Interpretive Data Percent cell count reference ranges are not reported, since discordance with absolute values may lead to misinterpretation of CBC data. Current Interpretive Data was last revised on 2017. Imm gran pct 6.3 % [facility] Comment: Interpretive Data Percent cell count reference ranges are not reported, since discordance with absolute values may lead to misinterpretation of CBC data. Current Interpretive Data was last revised on 2017. Lymphocyte pct 7.5 % [facility] Comment: Interpretive Data Percent cell count reference ranges are not reported, since discordance with absolute values may lead to misinterpretation of CBC data. Current Interpretive Data was last revised on 2017. Monocyte pct 8.6 % [facility] Comment: Interpretive Data Percent cell count reference ranges are not reported, since discordance with absolute values may lead to misinterpretation of CBC data. Current Interpretive Data was last revised on 2017. Eosinophil pct 1.0 % [facility] Comment: Interpretive Data Percent cell count reference ranges are not reported, since discordance with absolute values may lead to misinterpretation of CBC data. Current Interpretive Data was last revised on 2017. Basophil pct 1.0 % [facility] Comment: Interpretive Data Percent cell count reference ranges are not reported, since discordance with absolute values may lead to misinterpretation of CBC data. Current Interpretive Data was last revised on 2017. Blood 10/22/2024 8:47 PM CDT 10/22/2024 9:33 PM CDT us [place] DUMONT LAB BLOOD ORDERABLE S Final Result [facility] [place] [address] * (ABNORMAL) CBC with auto differential (10/22/2024 8:47 PM CDT) Pathologist [facility] WBC 9.0 3.8 - 9.9 K/cumm Hgb 10.1(L) 11.9 - 15.5 g/dL [facility] Hct 32.3(L) 35.6 - 45.5 % [facility] Plt 508(H) 150 - 400 K/cumm [facility] MPV 9.5 9.1 - 12.3 fL [facility] RBC 3.62(L) 3.90 - 5.20 M/cumm [facility] MCV 89.2 81.3 - 96.4 fL [facility] MCH 27.9 27.1 - 33.3 pg [facility] MCHC 31.3(L) 32.3 - 35.7 g/dL [facility] RDW CV 17.5(H) 11.1 - 14.9 % [facility] RDW SD 55.3(H) 35.7 - 48.1 fL [facility] NRBC abs 0.03(H) 0.00 - 0.01 K/cumm [facility] Blood 10/22/2024 8:47 PM CDT 10/22/2024 9:33 PM CDT [place] DUM[place] LAB BLOOD ORDERABLE S Final Result Performing Organization Address City/[facility]/ZIP Co de Phone Number [facility] Department [place] [address] * Phosphorus (10/22/2024 8:47 PM CDT) Pathologist [facility] Phosphorus, pl 2.6 2.3 - 4.5 mg/dL Blood 10/22/2024 8:47 PM CDT 10/22/2024 9:33 PM CDT [place] DUM[place] LAB BLOOD ORDERABLE S Final Result [facility] [place] [address] * (ABNORMAL) Comprehensive metabolic panel (10/22/2024 8:47 PM CDT) Sodium 139 135 - 145 mmol/L Potassium, pl 4.7 3.3 - 4.9 mmol/L [facility] Chloride 102 97 - 110 mmol/L [facility] CO2 25 22 - 32 mmol/L [facility] Anion gap 12 2 - 15 mmol/L [facility] BUN 13 6 - 25 mg/dL [facility] Creatinine 0.38(L) 0.60 - 1.10 mg/dL [facility] Glucose 115 70 - 199 mg/dL [facility] Comment: Interpretive Data Fasting glucose >/= 126 mg/dl is diagnostic for diabetes. Fasting is defined as no caloric intake for at least 8 hours. Fasting glucose between 100 mg/dl to 125 mg/dl is diagnostic of prediabetes. In a patient with classic symptoms of hyperglycemia or hyperglycemic crisis, a random glucose >/= 200 mg/dl is diagnostic for diabetes. In the absence of unequivocal hyperglycemia, results should be confirmed by repeat testing. The classification and Diagnosis of Diabetes Diabetes Care 2021; 46: S19-S40. Current interpretive data was last revised 2022. Calcium 7.9(L) 8.5 - 10.3 mg/dL [facility] Bilirubin, total 0.2 0.1 - 1.2 mg/dL [facility] Protein, pl 5.1(L) 6.5 - 8.5 g/dL [facility] Albumin 2.2(L) 3.5 - 5.0 g/dL [facility] Alk phos 127 40 - 130 Units/L [facility] ALT 25 7 - 45 Units/L [facility] AST 26 10 - 45 Units/L [facility] Blood 10/22/2024 8:47 PM CDT 10/22/2024 9:33 PM CDT us Scott Rea MD LAB BLOOD ORDERABLES Final R esult [facility] Department [place] [address] * eGFR (10/21/2024 9:50 PM CDT) Pathologist [facility] eGFR >90 >=60 mL/min/1. 73 m2 Comment: Interpretive Data Reference Interval Normal >/= 90 mL/min/1.73m2 Mildly decreased* 60 - 89 mL/min/1.73m2 Mildly to moderately decreased 45 - 59 mL/min/1.73m2 Moderately to severely decreased 30 - 44 mL/min/1.73m2 Severely decreased 15 - 29 mL/min/1.73m2 Kidney Failure < 15 mL/min/1.73m2 *Relative to young adult level Estimated glomerular filtration rate is determined by the 2020 CKD-EPI equation recommended by the National Kidney Foundation (A Unifying Approach to GFR Estimation: Recommendations of the NKF-ASK Task Force on Reassessing the Inclusion of Race in Diagnosing Kidney Disease, JASN 2020). The CKD-EPI equation should not be used for patients with unstable renal function and has not been validated in children and those over 70. Current interpretive data was last reviewed 2021. Blood 10/21/2024 9:50 PM CDT 10/21/2024 10:14 PM CDT [place] DUM[place] LAB BLOOD ORDERABLE S Final Result [facility] Department [place] [address] * (ABNORMAL) Differential, auto (10/21/2024 9:50 PM CDT) Pathologist [facility] Neutrophil abs 8.9(H) 1.5 - 6.5 K/cumm Imm gran abs 0.9(H) 0.0 - 0.1 K/cumm [facility] Lymphocyte abs 0.9 0.8 - 3.3 K/cumm [facility] Monocyte abs 0.8 0.2 - 0.8 K/cumm [facility] Eosinophil abs 0.1 0.0 - 0.5 K/cumm [facility] Basophil abs 0.1 0.0 - 0.1 K/cumm [facility] Neutrophil pct 75.9 % [facility] [place] Comment: Interpretive Data Percent cell count reference ranges are not reported, since discordance with absolute values may lead to misinterpretation of CBC data. Current Interpretive Data was last revised on 2017. Imm gran pct 7.8 % [facility] Comment: Interpretive Data Percent cell count reference ranges are not reported, since discordance with absolute values may lead to misinterpretation of CBC data. Current Interpretive Data was last revised on 2017. Lymphocyte pct 7.8 % [facility] Comment: Interpretive Data Percent cell count reference ranges are not reported, since discordance with absolute values may lead to misinterpretation of CBC data. Current Interpretive Data was last revised on 2017. Monocyte pct 6.8 % [facility] Comment: Interpretive Data Percent cell count reference ranges are not reported, since discordance with absolute values may lead to misinterpretation of CBC data. Current Interpretive Data was last revised on 2017. Eosinophil pct 0.7 % [facility] Comment: Interpretive Data Percent cell count reference ranges are not reported, since discordance with absolute values may lead to misinterpretation of CBC data. Current Interpretive Data was last revised on 2017. Basophil pct 1.0 % [facility] Comment: Interpretive Data Percent cell count reference ranges are not reported, since discordance with absolute values may lead to misinterpretation of CBC data. Current Interpretive Data was last revised on 2017. Blood 10/21/2024 9:50 PM CDT 10/21/2024 10:14 PM CDT us [place] DUM[place] LAB BLOOD ORDERABLE S Final Result [facility] [place] [address] * HIV 1/2 Antibody plus p24 Antigen Blood (10/21/2024 9:50 PM CDT) HIV 1/2 ab + p24 ag Nonreactive Nonreactive Comment:Nonreactive for HIV- 1 antigen and HIV-1/HIV-2 antibodies. No laboratory evidence of HIV infection. If acute HIV infection is suspected, consider testing for HIV-1 RNA. Current interpretive data was last revised on 22. Blood 10/21/2024 9:50 PM CDT 10/21/2024 10:14 PM CDT Ishmael Beebe MD LAB MICROBIOLOGY - GENERAL ORDERABLES Final Result [facility] Department [place] [address] * (ABNORMAL) CBC with auto differential (10/21/2024 9:50 PM CDT) Pathologist [facility] WBC 11.8(H) 3.8 - 9.9 K/cumm Hgb 11.0(L) 11.9 - 15.5 g/dL [facility] Hct 34.5(L) 35.6 - 45.5 % [facility] Plt 517(H) 150 - 400 K/cumm [facility] MPV 9.3 9.1 - 12.3 fL [facility] RBC 3.92 3.90 - 5.20 M/cumm [facility] MCV 88.0 81.3 - 96.4 fL [facility] MCH 28.1 27.1 - 33.3 pg [facility] MCHC 31.9(L) 32.3 - 35.7 g/dL [facility] RDW CV 17.4(H) 11.1 - 14.9 % [facility] RDW SD 54.5(H) 35.7 - 48.1 fL [facility] NRBC abs 0.06(H) 0.00 - 0.01 K/cumm [facility] Blood 10/21/2024 9:50 PM CDT 10/21/2024 10:14 PM CDT [place] DUM[place] LAB BLOOD ORDERABLE S Final Result [facility] [place] [address] * Phosphorus (10/21/2024 9:50 PM CDT) Pathologist [facility] Phosphorus, pl 2.4 2.3 - 4.5 mg/dL Blood 10/21/2024 9:50 PM CDT 10/21/2024 10:14 PM CDT [place] DUM[place] LAB BLOOD ORDERABLE S Final Result Performing Organization Address [facility] Co de Phone Number [facility] [place] [address] * (ABNORMAL) Basic metabolic panel (10/21/2024 9:50 PM CDT) [facility] Sodium 136 135 - 145 mmol/L Potassium, pl 4.3 3.3 - 4.9 mmol/L [facility] Chloride 100 97 - 110 mmol/L [facility] CO2 24 22 - 32 mmol/L [facility] Anion gap 12 2 - 15 mmol/L [facility] BUN 14 6 - 25 mg/dL [facility] Creatinine 0.45(L) 0.60 - 1.10 mg/dL [facility] Glucose 137 70 - 199 mg/dL [facility] Comment: Interpretive Data Fasting glucose >/= 126 mg/dl is diagnostic for diabetes. Fasting is defined as no caloric intake for at least 8 hours. Fasting glucose between 100 mg/dl to 125 mg/dl is diagnostic of prediabetes. In a patient with classic symptoms of hyperglycemia or hyperglycemic crisis, a random glucose >/= 200 mg/dl is diagnostic for diabetes. In the absence of unequivocal hyperglycemia, results should be confirmed by repeat testing. The classification and Diagnosis of Diabetes Diabetes Care 2021; 46: S19-S40. Current interpretive data was last revised 2022. Calcium 7.7(L) 8.5 - 10.3 mg/dL [facility] Blood 10/21/2024 9:50 PM CDT 10/21/2024 10:14 PM CDT us [place] DUM[place] LAB BLOOD ORDERABLE S Final Result [facility] [place] [address] * TRANSTHORACIC ECHO (TTE) LIMITED/FOLLOW UP W LTD DOPPLER/CF W CONTRAST (10/21/2024 5:32 PM CDT) Anatomical Region Laterality Modality Ultrasound 10/21/2024 4:18 PM CDT Narrative 10/21/2024 6:11 PM CDT [facility] [place] [address] Transthoracic Echocardiographic Report Patient Name: SEAN ESTRELLA A : 1945 (79y 9m) Gender: F Study Date: 10/21/2024 04:18:42 PM Ht(Inch): 65 Wt(Lb): 136.91 BSA: 1.69 Vocational Nurse Lvn: Sadia Fraser RDCS Location: [id number] Order Provider: RANDY BIRD Heart Rate: 148 BMI: 22.78 BP: 91 / 48 Ref Provider: RANDY BIRD PROCEDURES: Echocardiographic Report: Limited transthoracic 2D echo with contrast, includes spectral and tissue Doppler, color flow Doppler, and/or M-mode, when performed. Contrast: Contrast Enhancement was Employed: After initial imaging due to sub- optimal quality related to co-morbidity defined by patient's body habitus and due to suboptimal image quality with inadequate visualization of at least 2 of 16 LV wall segments in any view after initial imaging. Perflutren contrast was administered using the volume necessary to obtain adequate images. 0.9 ml Optison Administered, (2.1 ml wasted). INDICATIONS: Limited echo for new afib. CONCLUSIONS: 1. Normal left ventricular size based on volume index. Concentric LV remodeling. Normal left ventricular systolic function. The Ejection Fraction (Oliva's) is measured at 63 %. Left ventricular diastolic function is indeterminate due to the presence of atrial fibrillation during the study. The average global longitudinal strain is abnormal. 2. There are no regional wall motion abnormalities. 3. Normal right ventricular size. Normal right ventricular systolic function. 4. The estimated pulmonary artery systolic pressure is 31+RA mmHg. ATTESTATION: I have personally reviewed and interpreted this study without fellow or resident. DISCLAIMER: The study images and the final report will be retained in the patient chart by the Echo Laboratory for the legally required time period. This chart constitutes the legal record of any testing performed. FINDINGS: Left Ventricle: Normal left ventricular size based on volume index. Concentric LV remodeling. Normal left ventricular systolic function. The Ejection Fraction (Oliva's) is measured at 63 %. Left ventricular diastolic function is indeterminate due to the presence of atrial fibrillation during the study. The average global longitudinal strain is abnormal. The LV global strain is: -9.2 %. Regional Wall Motion: There are no regional wall motion abnormalities. Right Ventricle: Normal right ventricular size. Normal right ventricular systolic function. Left Atrium: Mildly dilated left atrium. Right Atrium: Right atrial dilatation. Atrial Septum: Normal interatrial septum. Mitral Valve: Mitral valve leaflets appear mildly thickened. Moderate mitral annular calcification. Aortic Valve: Mildly thickened aortic valve leaflets. Tricuspid Valve: Normal tricuspid valve structure. Mild tricuspid regurgitation. The estimated pulmonary artery systolic pressure is 31+RA mmHg. Pulmonic Valve: Normal pulmonic valve structure. Mild pulmonic regurgitation. Pericardium: Normal pericardium without pericardial effusion. Aorta: Normal aortic root. Normal aortic root size. IVC: IVC is normal in size. The IVC was <2.1 cm and collapsibility >50%. (est. RA pressure 0-5 mmHg). MEASUREMENTS: 2D/MM Value Range Doppler Value Range LVIDd 2D 3.96 cm [ 3.80 - 5.20 ] LVOT Peak Blake 1.0 m/s [ 0.7 - 1.1 ] LVIDs 2D 2.59 cm [ 2.20 - 3.50 ] LVOT Peak PG 4.00 mmHg IVSd 2D 0.87 cm [ 0.60 - 0.90 ] LVOT Mean PG 2 mmHg LVPWd 2D 0.88 cm [ 0.60 - 0.90 ] LVOT VTI 17.4 cm LV Thickness Ratio 1.0 MV E Peak Blake 1.1 m/s [ 0.6 - 1.3 ] LV FS 2D 34.53 % [ 27.00 - 45.00 ] MV A Peak Blake 0.4 m/s [ 1.0 - 1.2 ] LV Mass 2D 105.81 g MV E/A 255.2 ratio [ 0.8 - 1.5 ] LV Mass Index 2D 62.61 g/m2 MV Decel Time 191.04 msec [ 104.00 - 258.00 ] RWT 0.44 Med E` Blake 10.2 cm/sec [ 8.0 - 15.0 ] EDV Mod BP 91.30 ml [ 46.00 - 106.00 ] Lat E` Blake 13.5 cm/sec [ 10.0 - 15.0 ] LV EDV Index 54.02 ml/m2 Average E/E` 9.28 ESV Mod BP 33.93 ml [ 14.00 - 42.00 ] TR Peak Blake 2.8 m/s [ 1.0 - 2.8 ] EF Mod BP 63 % [ 54 - 74 ] TR Peak PG 31.4 mmHg LV GLS -9.2 % [ -18.0 - -16.0 ] RV Base Dimen 2D 3.8 cm [ 2.5 - 4.2 ] Electronically Signed By: Johann Tom MD 10/21/2024 6:10:56 PM CDT Procedure Note Johann Elder MD - 10/21/2024 [facility] [place] [address] Transthoracic Echocardiographic Report Patient Name: SEAN ESTRELLA A : 1945 (79y 9m) Gender: F Study Date: 10/21/2024 04:18:42 PM Ht(Inch): 65 Wt(Lb): 136.91 BSA: 1.69 Vocational Nurse Lvn: Sadia Fraser [facility] Location: [id number] Order Provider:RANDY BIRD Heart Rate: 148 BMI: 22.78 BP: 91 / 48 Ref Provider: RANDY BIRD PROCEDURES: Echocardiographic Report: Limited transthoracic 2D echo with contrast,includes spectral and tissue Doppler, color flow Doppler, and/or M-mode, when performed. Contrast: Contrast Enhancement was Employed: After initial imaging due tosub- optimal quality related to co-morbidity defined by patient's body habitus and dueto suboptimal image quality with inadequate visualization of at least 2 of 16 LV wallsegments in any view after initial imaging. Perflutren contrast was administered using thevolume necessary to obtain adequate images. 0.9 ml Optison Administered, (2.1 mlwasted). INDICATIONS: Limited echo for new afib. CONCLUSIONS: 1. Normal left ventricular size based on volume index. Concentric LVremodeling. Normal left ventricular systolic function. The Ejection Fraction (Oliva's) ismeasured at 63 %. Left ventricular diastolic function is indeterminate due to thepresence of atrial fibrillation during the study. The average global longitudinal strain isabnormal. 2. There are no regional wall motion abnormalities. 3. Normal right ventricular size. Normal right ventricular systolicfunction. 4. The estimated pulmonary artery systolic pressure is 31+RA mmHg. ATTESTATION: I have personally reviewed and interpreted this study without fellow orresident. DISCLAIMER: The study images and the final report will be retained in the patientchart by the Echo Laboratory for the legally required time period. This chart constitutesthe legal record of any testing performed. FINDINGS: Left Ventricle: Normal left ventricular size based on volume index.Concentric LV remodeling. Normal left ventricular systolic function. The EjectionFraction (Oliva's) is measured at 63 %. Left ventricular diastolic function is indeterminatedue to the presence of atrial fibrillation during the study. The average globallongitudinal strain is abnormal. The LV global strain is: -9.2 %. Regional Wall Motion: There are no regional wall motion abnormalities. Right Ventricle: Normal right ventricular size. Normal right ventricularsystolic function. Left Atrium: Mildly dilated left atrium. Right Atrium: Right atrial dilatation. Atrial Septum: Normal interatrial septum. Mitral Valve: Mitral valve leaflets appear mildly thickened. Moderatemitral annular calcification. Aortic Valve: Mildly thickened aortic valve leaflets. Tricuspid Valve: Normal tricuspid valve structure. Mild tricuspidregurgitation. The estimated pulmonary artery systolic pressure is 31+RA mmHg. Pulmonic Valve: Normal pulmonic valve structure. Mild pulmonicregurgitation. Pericardium: Normal pericardium without pericardial effusion. Aorta: Normal aortic root. Normal aortic root size. IVC: IVC is normal in size. The IVC was <2.1 cm and collapsibility >50%.(est. RA pressure 0-5 mmHg). MEASUREMENTS: 2D/MM Value Range DopplerValue Range LVIDd 2D 3.96 cm [ 3.80 - 5.20 ] LVOT Peak Vel1.0 m/s [ 0.7 - 1.1 ] LVIDs 2D 2.59 cm [ 2.20 - 3.50 ] LVOT Peak PG4.00 mmHg IVSd 2D 0.87 cm [ 0.60 - 0.90 ] LVOT Mean PG2 mmHg LVPWd 2D 0.88 cm [ 0.60 - 0.90 ] LVOT VTI17.4 cm LV Thickness Ratio 1.0 MV E Peak Vel1.1 m/s [ 0.6 - 1.3 ] LV FS 2D 34.53 % [ 27.00 - 45.00 ] MV A Peak Vel0.4 m/s [ 1.0 - 1.2 ] LV Mass 2D 105.81 g MV E/A255.2 ratio [ 0.8 - 1.5 ] LV Mass Index 2D 62.61 g/m2 MV Decel Rtgv707.04 msec [ 104.00 - 258.00 ] RWT 0.44 Med E` Vel10.2 cm/sec [ 8.0 - 15.0 ] EDV Mod BP 91.30 ml [ 46.00 - 106.00 ] Lat E` Vel13.5 cm/sec [ 10.0 - 15.0 ] LV EDV Index 54.02 ml/m2 Average E/E`9.28 ESV Mod BP 33.93 ml [ 14.00 - 42.00 ] TR Peak Vel2.8 m/s [ 1.0 - 2.8 ] EF Mod BP 63 % [ 54 - 74 ] TR Peak PG31.4 mmHg LV GLS -9.2 % [ -18.0 - -16.0 ] RV Base Dimen 2D 3.8 cm [ 2.5 - 4.2 ] Electronically Signed By: Johann Tom MD 10/21/2024 6:10:56 PM CDT Randy Bird [facility] CV ECHO PROCEDURES Fin al Result * (ABNORMAL) aPTT (10/21/2024 3:26 AM CDT) aPTT 82(H) 28 - 38 sec Comment: Interpretive Data Heparin therapeutic range: 66.0 - 100.0 seconds. Range based on correlation with therapeutic heparin activity range of 0.3 - 0.7 Units/mL. Current interpretive data was last revised on 2023. Blood 10/21/2024 3:26 AM CDT 10/21/2024 4:30 AM CDT Kobe WHEATLEY [facility] - 10/21/2024 4:57 AM CDT STAT PTT timing: - Draw 6 hours after heparin infusion initiation - Draw 6 hours after every dose change until 2 consecutive PTTs are therapeutic - Once 2 consecutive PTTs are therapeutic, obtain with daily labs until infusion is discontinued - - Restart every 6 hour lab draws and follow instructions accordingly if PTT is outside of therapeutic range Do not draw lab from IV line that is actively infusing heparin. Use the opposite arm. If arm with actively infusing heparin must be used, pause the infusion for at least 2 minutes, and draw specimen below the IV site. For patients with a central venous catheter (CVC), lab must be drawn peripherally (not from CVC). Randy Bird [facility] LAB BLOOD ORDERABLES F inal Result Performing Organization Address [facility] Co de Phone Number [facility] Department [place] [employer] [place] [employer] [place] [address] * eGFR (10/20/2024 9:29 PM CDT) eGFR >90 >=60 mL/min/1. 73 m2 Comment: Interpretive Data Reference Interval Normal >/= 90 mL/min/1.73m2 Mildly decreased* 60 - 89 mL/min/1.73m2 Mildly to moderately decreased 45 - 59 mL/min/1.73m2 Moderately to severely decreased 30 - 44 mL/min/1.73m2 Severely decreased 15 - 29 mL/min/1.73m2 Kidney Failure < 15 mL/min/1.73m2 *Relative to young adult level Estimated glomerular filtration rate is determined by the 2020 CKD-EPI equation recommended by the National Kidney Foundation (A Unifying Approach to GFR Estimation: Recommendations of the NKF-ASK Task Force on Reassessing the Inclusion of Race in Diagnosing Kidney Disease, JASN 2020). The CKD-EPI equation should not be used for patients with unstable renal function and has not been validated in children and those over 70. Current interpretive data was last reviewed 2021. Blood 10/20/2024 9:29 PM CDT 10/20/2024 9:40 PM CDT [place] DUM[place] LAB BLOOD ORDERABLE S Final Result Performing Organization Address [facility]/ZIP Co de Phone Number [facility] [place] [address] * (ABNORMAL) CBC with auto differential (10/20/2024 9:29 PM CDT) [facility] WBC 12.1(H) 3.8 - 9.9 K/cumm Hgb 10.0(L) 11.9 - 15.5 g/dL [facility] Hct 29.7(L) 35.6 - 45.5 % [facility] Plt 451(H) 150 - 400 K/cumm [facility] MPV 9.5 9.1 - 12.3 fL [facility] RBC 3.44(L) 3.90 - 5.20 M/cumm [facility] MCV 86.3 81.3 - 96.4 fL [facility] MCH 29.1 27.1 - 33.3 pg [facility] MCHC 33.7 32.3 - 35.7 g/dL [facility] RDW CV 16.9(H) 11.1 - 14.9 % [facility] RDW SD 51.9(H) 35.7 - 48.1 fL [facility] NRBC abs 0.09(H) 0.00 - 0.01 K/cumm [facility] Blood 10/20/2024 9:29 PM CDT 10/20/2024 9:40 PM CDT Virginia DUMONT LAB BLOOD ORDERABLE S Final Result [facility] [place] [address] * (ABNORMAL) Manual Differential (10/20/2024 9:29 PM CDT) [facility] Differential Manual Cells Counted 126 [facility] Neutrophil abs 9.9(H) 1.5 - 6.5 K/cumm [facility] Imm gran abs 0.2(H) 0.0 - 0.1 K/cumm [facility] Lymphocyte abs 1.0 0.8 - 3.3 K/cumm [facility] Monocyte abs 0.7 0.2 - 0.8 K/cumm [facility] Eosinophil abs 0.2 0.0 - 0.5 K/cumm [facility] Basophil abs 0.1 0.0 - 0.1 K/cumm [facility] Neutrophil pct 81.7 % [facility] Comment: Interpretive Data Percent cell count reference ranges are not reported, since discordance with absolute values may lead to misinterpretation of CBC data. Current Interpretive Data was last revised on 2017. Lymphocyte pct 8.7 % [facility] Comment: Interpretive Data Percent cell count reference ranges are not reported, since discordance with absolute values may lead to misinterpretation of CBC data. Current Interpretive Data was last revised on 2017. Monocyte pct 5.6 % [facility] Comment: Interpretive Data Percent cell count reference ranges are not reported, since discordance with absolute values may lead to misinterpretation of CBC data. Current Interpretive Data was last revised on 2017. Eosinophil pct 1.6 % [facility] Comment: Interpretive Data Percent cell count reference ranges are not reported, since discordance with absolute values may lead to misinterpretation of CBC data. Current Interpretive Data was last revised on 2017. Basophil pct 0.8 % [facility] Comment: Interpretive Data Percent cell count reference ranges are not reported, since discordance with absolute values may lead to misinterpretation of CBC data. Current Interpretive Data was last revised on 2017. Myelocyte pct 1.6(H) 0.0 - 0.0 % [facility] Blood 10/20/2024 9:29 PM CDT 10/20/2024 9:46 PM CDT Virginia DUMONT LAB BLOOD ORDERABLE S Final Result [facility] [place] [address] * aPTT (10/20/2024 9:29 PM CDT) aPTT 38 28 - 38 sec Comment: Interpretive Data Heparin therapeutic range: 66.0 - 100.0 seconds. Range based on correlation with therapeutic heparin activity range of 0.3 - 0.7 Units/mL. Current interpretive data was last revised on 2023. Blood 10/20/2024 9:29 PM CDT 10/20/2024 9:56 PM CDT Kobe [facility] - 10/20/2024 10:05 PM CDT STAT PTT timing: - Draw 6 hours after heparin infusion initiation - Draw 6 hours after every dose change until 2 consecutive PTTs are therapeutic - Once 2 consecutive PTTs are therapeutic, obtain with daily labs until infusion is discontinued - - Restart every 6 hour lab draws and follow instructions accordingly if PTT is outside of therapeutic range Do not draw lab from IV line that is actively infusing heparin. Use the opposite arm. If arm with actively infusing heparin must be used, pause the infusion for at least 2 minutes, and draw specimen below the IV site. For patients with a central venous catheter (CVC), lab must be drawn peripherally (not from CVC). Randy Bird [facility] LAB BLOOD ORDERABLES F inal Result [facility] [place] [address] * Type and screen (10/20/2024 9:29 PM CDT) Pathologist [facility] ABO Rh A Positive [place], indirect Negative [facility] Blood 10/20/2024 9:29 PM CDT 10/20/2024 9:42 PM CDT Kobe [facility] - 10/20/2024 10:31 PM CDT Has the patient had Daratumumab or Isatuximab in the past 6 months?->Unknown Virginia DUMONT LAB BLOOD BANK TEST ORDERABLES Final Result [facility] Department [place] [employer] [place] [address] * Phosphorus (10/20/2024 9:29 PM CDT) Pathologist [facility] Phosphorus, pl 2.3 2.3 - 4.5 mg/dL Blood 10/20/2024 9:29 PM CDT 10/20/2024 9:40 PM CDT Virginia DUMONT LAB BLOOD ORDERABLE S Final Result Performing Organization Address City[facility] Co de Phone Number [facility] [place] [address] * Magnesium (10/20/2024 9:29 PM CDT) Pathologist [facility] Magnesium 2.1 1.4 - 2.5 mg/dL Blood 10/20/2024 9:29 PM CDT 10/20/2024 9:40 PM CDT Ishmael Beebe MD LAB BLOOD ORDERABLE S Final Result Performing Organization Address [facility] de Phone Number [facility] Department [place] [address] * (ABNORMAL) Basic metabolic panel (10/20/2024 9:29 PM CDT) Pathologist [facility] Sodium 138 135 - 145 mmol/L Potassium, pl 4.4 3.3 - 4.9 mmol/L [facility] Chloride 101 97 - 110 mmol/L [facility] Comment:Repeated and Verifie d CO2 24 22 - 32 mmol/L [facility] Anion gap 13 2 - 15 mmol/L [facility] BUN 14 6 - 25 mg/dL [facility] Creatinine 0.39(L) 0.60 - 1.10 mg/dL [facility] Glucose 138 70 - 199 mg/dL [facility] Comment: Interpretive Data Fasting glucose >/= 126 mg/dl is diagnostic for diabetes. Fasting is defined as no caloric intake for at least 8 hours. Fasting glucose between 100 mg/dl to 125 mg/dl is diagnostic of prediabetes. In a patient with classic symptoms of hyperglycemia or hyperglycemic crisis, a random glucose >/= 200 mg/dl is diagnostic for diabetes. In the absence of unequivocal hyperglycemia, results should be confirmed by repeat testing. The classification and Diagnosis of Diabetes Diabetes Care 2021; 46: S19-S40. Current interpretive data was last revised 2022. Calcium 7.3(L) 8.5 - 10.3 mg/dL [facility] Comment:Repeated and Verifie d Blood 10/20/2024 9:29 PM CDT 10/20/2024 9:40 PM CDT Virginia Jeffery PA LAB BLOOD ORDERABLE S Final Result Performing Organization Address [facility] de Phone Number [facility] [place] [address] * Sodium, urine, random (10/20/2024 6:23 PM CDT) Sodium, ur <20 mmol/L Comment: Interpretive Data No reference range established. Current interpretive data was last revised 2018. Urine (Urine, Clean Catch) 10/20/2024 6:23 PM CDT 10/20/2024 6:39 PM CDT Leticia Heaton NP LAB URINE ORDERABLES Final Resu lt Performing Organization Address [facility] de Phone Number [facility] Department [place] [address] * Potassium, urine, random (10/20/2024 6:23 PM CDT) Potassium conc, ur 57.3 mmol/L Comment: Interpretive Data No reference range established. Current interpretive data was last revised 2018. Urine (Urine, Clean Catch) 10/20/2024 6:23 PM CDT 10/20/2024 6:39 PM CDT Leticia Heaton [facility] LAB URINE ORDERABLES Final Resu lt Performing Organization Address [facility] Co de Phone Number [facility] [place] [address] * Osmolality, urine (10/20/2024 6:23 PM CDT) Osmo, ur 764 mOsm/kg Urine 10/20/2024 6:23 PM CDT 10/20/2024 6:39 PM CDT Vildana Masic [employer] [employer] [facility] LAB URINE ORDERABLES Final Resu lt Performing Organization Address City/[facility]/ZIP Co de Phone Number [facility] [place] [address] * Creatinine, urine, random (10/20/2024 6:23 PM CDT) Creatinine Ur 62.0 mg/dL Comment: Interpretive Data No reference range established. Current interpretive data was last revised 2018. Urine 10/20/2024 6:23 PM CDT 10/20/2024 6:39 PM CDT Vildana Masic [employer] [employer] [facility] LAB URINE ORDERABLES Final Resu lt Performing Organization Address [facility] Co de Phone Number [facility] [place] [address] * Chloride, urine, random (10/20/2024 6:23 PM CDT) Chloride, ur <25 mmol/L Comment: Interpretive Data No reference range established. Current interpretive data was last revised 2018. Urine (Urine, Clean Catch) 10/20/2024 6:23 PM CDT 10/20/2024 6:39 PM CDT Vildana Masic [facility] [facility] LAB URINE ORDERABLES Final Resu lt Performing Organization Address City/[facility]/ZIP Co de Phone Number [facility] [place] [address] * (ABNORMAL) POC Blood Gas and Chemistries, Venous - (10/20/2024 6:06 PM CDT) pH, Justus POC 7.43 7.32 - 7.43 pCO2, justus POC 35(L) 40 - 50 mmHg [facility] [place] pO2, justus POC 44 mmHg [facility] [place]] Na, POC 134(L) 135 - 145 mmol/L [facility] K POC 4.1 3.3 - 4.9 mmol/L [facility] Comment: Interpretive Data Not all point of care methods assess for hemolysis. Confirm with instrument and retest K+ if not consistent with clinical signs and symptoms. Current Interpretive Data was last revised on 2023. Cl, POC 105 97 - 110 mmol/L [facility] Ionized Ca, POC 4.59 4.50 - 5.10 mg/dL [facility] Glucose, POC 156 70 - 199 mg/dL [facility] [place]] Lactate, POC 3.3(H) 0.7 - 2.0 mmol/L [facility] O2 Sat, Justus POC (Ruth) 79 % [facility] Base excess, POC -0.8 mmol/L [facility] [place]] HCO3, Justus POC 23 20 - 30 mmol/L [facility] Hct, POC 32.0(L) 36.3 - 45.3 % [facility] Total Hb, POC 10.7(L) 11.9 - 15.5 g/dL [facility] Blood 10/20/2024 6:06 PM CDT 10/20/2024 6:06 PM CDT us Ishmael Beebe MD LAB POCT ORDERABLES - DEVICE Final Result [facility] [place] [address] * Lactate (10/20/2024 2:54 PM CDT) Lactate 1.6 0.7 - 2.0 mmol/L Blood 10/20/2024 2:54 PM CDT 10/20/2024 3:13 PM CDT Leticia Toscanolavell [employer] LAB BLOOD ORDERABLES Final Resu lt Performing Organization Address City/[facility]/ZIP Co de Phone Number [facility] [place] [address] * eGFR (10/20/2024 2:54 PM CDT) eGFR >90 >=60 mL/min/1. 73 m2 Comment: Interpretive Data Reference Interval Normal >/= 90 mL/min/1.73m2 Mildly decreased* 60 - 89 mL/min/1.73m2 Mildly to moderately decreased 45 - 59 mL/min/1.73m2 Moderately to severely decreased 30 - 44 mL/min/1.73m2 Severely decreased 15 - 29 mL/min/1.73m2 Kidney Failure < 15 mL/min/1.73m2 *Relative to young adult level Estimated glomerular filtration rate is determined by the 2020 CKD-EPI equation recommended by the National Kidney Foundation (A Unifying Approach to GFR Estimation: Recommendations of the NKF-ASK Task Force on Reassessing the Inclusion of Race in Diagnosing Kidney Disease, JASN 2020). The CKD-EPI equation should not be used for patients with unstable renal function and has not been validated in children and those over 70. Current interpretive data was last reviewed 2021. Blood 10/20/2024 2:54 PM CDT 10/20/2024 3:25 PM CDT Leticia Heaton NP LAB BLOOD ORDERABLES Final Resu lt CORRY CATALAN [facility] [place] [address] * Critical Result Callback Chemistry (10/20/2024 2:54 PM CDT) Date Notified 20241020 Time Notified 1726 CORRY CATALAN TestName Potassium Plas, Calcium CORRY CATALAN Called/Read Back Tequilavicente CATALAN Credentials RN [facility] Called By PARVEEN WHEATLEY [facility] Blood 10/20/2024 2:54 PM CDT 10/20/2024 3:25 PM CDT Leticia Heaton NP LAB BLOOD ORDERABLES Final Resu lt Performing Organization Address City/[facility]/ZIP Co de Phone Number [facility] [place] [address] * (ABNORMAL) Phosphorus (10/20/2024 2:54 PM CDT) Phosphorus, pl 1.2(L) 2.3 - 4.5 mg/dL Blood 10/20/2024 2:54 PM CDT 10/20/2024 3:25 PM CDT Ishmael Beebe MD LAB BLOOD ORDERABLE S Final Result Performing Organization Address [facility] Co de Phone Number [facility] [place] [address] * (ABNORMAL) Magnesium (10/20/2024 2:54 PM CDT) Pathologist [facility] Magnesium 1.3(L) 1.4 - 2.5 mg/dL Blood 10/20/2024 2:54 PM CDT 10/20/2024 3:25 PM CDT Ishmael Beebe MD LAB BLOOD ORDERABLE S Final Result Performing Organization Address City[facility] Co de Phone Number [facility] [place] [address] * (ABNORMAL) Basic metabolic panel (10/20/2024 2:54 PM CDT) Sodium 147(H) 135 - 145 mmol/L Comment:Sample investigated and found to be analytically accurate. If results do not match clinical presentation, improper collection (e.g., IV fluid contamination, improper tube type, mislabel) should be considered and re-collection recommended. Potassium, pl 2.3(C) 3.3 - 4.9 mmol/L [facility] Comment:Repeated and Verifie d Chloride 121(H) 97 - 110 mmol/L [facility] Comment:Repeated and Verifie d CO2 15(L) 22 - 32 mmol/L [facility] Anion gap 11 2 - 15 mmol/L [facility] BUN 8 6 - 25 mg/dL [facility] Creatinine 0.21(L) 0.60 - 1.10 mg/dL [facility] Glucose 84 70 - 199 mg/dL [facility] Comment: Interpretive Data Fasting glucose >/= 126 mg/dl is diagnostic for diabetes. Fasting is defined as no caloric intake for at least 8 hours. Fasting glucose between 100 mg/dl to 125 mg/dl is diagnostic of prediabetes. In a patient with classic symptoms of hyperglycemia or hyperglycemic crisis, a random glucose >/= 200 mg/dl is diagnostic for diabetes. In the absence of unequivocal hyperglycemia, results should be confirmed by repeat testing. The classification and Diagnosis of Diabetes Diabetes Care 2021; 46: S19-S40. Current interpretive data was last revised 2022. Calcium <5.0(C) 8.5 - 10.3 mg/dL [facility] Comment:Repeated and Verifie d Blood 10/20/2024 2:54 PM CDT 10/20/2024 3:25 PM CDT us Leticia Heaton [employer] LAB BLOOD ORDERABLES Edited Res ult - Final [facility] Department [place] [address] * US Vein Duplex Lower Extremity Bilateral Complete (10/20/2024 1:41 PM CDT) Anatomical Region Laterality Modality Vascular Bilateral Ultrasound 10/20/2024 1:14 PM CDT Narrative 10/21/2024 6:32 PM CDT [facility] - Department of Vascular Surgery, Vascular Laboratory [address] [place] [address] Lower Extremity Venous Ultrasound Report Patient Name: SEAN ESTRELLA A : 1945 (79y 9m) Study Date: 10/20/2024 1:14:36 PM Gender: F Tech: Location: [id number] Ref Provider: RNADY BIRD Quality: Adequate Order Provider: RANDY BIRD PROCEDURES: Vascular Report: Venous Duplex imaging was performed bilaterally in the lower extremities. The common femoral, femoral, popliteal, posterior tibial, peroneal veins were evaluated for patency, spontaneity and phasicity with Doppler, compression and augmentation maneuvers. Great saphenous vein proximal at the junction was evaluated with compression maneuvers. INDICATIONS: Localized edema. FINDINGS: Performing Vocational Nurse Lvn: Jeimy Mccullough RVT, RDMS. Bilateral: Venous Doppler signals in the bilateral lower extremity are within normal limits for spontaneity and phasicity and respond normally to augmentation maneuvers. No evidence of deep vein thrombus by duplex, proximal to the calf. Comments: Limited visualization of the bilateral groin and deep calf veins due to edema. CONCLUSIONS: 1. There is no evidence of acute deep vein thrombosis in the lower extremities bilaterally. Noninvasive venous studies cannot rule out isolated calf vein obstruction. HISTORY: Chronic venous hypertension, HTN, SOB, varicose veins. PREVIOUS STUDIES: Previous study performed on 06-05-2014, negative. DISCLAIMER: The study images and the final report will be retained in the patient chart by the Vascular Laboratory for the legally required time period. This chart constitutes the legal record of any testing performed. ATTESTATION: I have reviewed and interpreted the pertinent images and measurements of this study. I attest to the conclusions in the final report that is provided above. Electronically Signed By: Franky Aceves MD [facility] [phone] 10/21/2024 5:23:34 PM CDT Procedure Note Franky Aceves MD - 10/21/2024 [facility] - Department of Vascular Surgery,Vascular Laboratory [address] [place] [address] Lower Extremity Venous Ultrasound Report Patient Name: SEAN ESTRELLA A : 1945 (79y 9m) Study Date: 10/20/2024 1:14:36 PM Gender: F Tech: Location: [id number] Ref Provider: RANDY BIRD Quality: Adequate Order Provider: RANDY BIRD PROCEDURES: Vascular Report: Venous Duplex imaging was performed bilaterally in the lower extremities.The common femoral, femoral, popliteal, posterior tibial, peroneal veins wereevaluated for patency, spontaneity and phasicity with Doppler, compression and augmentationmaneuvers. Great saphenous vein proximal at the junction was evaluated with compressionmaneuvers. INDICATIONS: Localized edema. FINDINGS: Performing Vocational Nurse Lvn: Jeimy Mccullough RVT, RDMS. Bilateral: Venous Doppler signals in the bilateral lower extremity are within normallimits for spontaneity and phasicity and respond normally to augmentation maneuvers.No evidence of deep vein thrombus by duplex, proximal to the calf. Comments: Limited visualization of the bilateral groin and deep calf veins due toedema. CONCLUSIONS: 1. There is no evidence of acute deep vein thrombosis in the lowerextremities bilaterally. Noninvasive venous studies cannot rule out isolated calf veinobstruction. HISTORY: Chronic venous hypertension, HTN, SOB, varicose veins. PREVIOUS STUDIES: Previous study performed on 06-05-2014, negative. DISCLAIMER: The study images and the final report will be retained in the patientchart by the Vascular Laboratory for the legally required time period. This chartconstitutes the legal record of any testing performed. ATTESTATION: I have reviewed and interpreted the pertinent images and measurements ofthis study. I attest to the conclusions in the final report that is provided above. Electronically Signed By: Franky Aceves MD [facility] [phone] 10/21/2024 5:23:34 PM CDT us Randy Bird NP IMG US PROCEDURES Monie l Result * Troponin I high-sensitivity (10/20/2024 1:01 PM CDT) Trop I hs 6 <=17 ng/L Comment: Interpretive Data For further hscTnI resources including the diagnostic algorithm and an aid in interpretation, copy and paste this link: [email or web address].testcatalog.org/[email or web address] Current Interpretive Data last revised 2020. Blood 10/20/2024 1:01 PM CDT 10/20/2024 1:33 PM CDT us Randy Bird NP LAB BLOOD ORDERABLES F inal Result [facility] [place] [address] * (ABNORMAL) Lactate (10/20/2024 1:01 PM CDT) Lactate 2.3(H) 0.7 - 2.0 mmol/L Blood 10/20/2024 1:01 PM CDT 10/20/2024 1:33 PM CDT us Shubham Mclaughlin MD LAB BLOOD ORDERABLES Final Resul t Performing Organization Address [facility] de Phone Number [facility] [place] [address] * eGFR (10/20/2024 1:01 PM CDT) Pathologist [facility] eGFR >90 >=60 mL/min/1. 73 m2 Comment: Interpretive Data Reference Interval Normal >/= 90 mL/min/1.73m2 Mildly decreased* 60 - 89 mL/min/1.73m2 Mildly to moderately decreased 45 - 59 mL/min/1.73m2 Moderately to severely decreased 30 - 44 mL/min/1.73m2 Severely decreased 15 - 29 mL/min/1.73m2 Kidney Failure < 15 mL/min/1.73m2 *Relative to young adult level Estimated glomerular filtration rate is determined by the 2020 CKD-EPI equation recommended by the National Kidney Foundation (A Unifying Approach to GFR Estimation: Recommendations of the NKF-ASK Task Force on Reassessing the Inclusion of Race in Diagnosing Kidney Disease, JASN 2020). The CKD-EPI equation should not be used for patients with unstable renal function and has not been validated in children and those over 70. Current interpretive data was last reviewed 2021. Blood 10/20/2024 1:01 PM CDT 10/20/2024 1:32 PM CDT us Randy Bird NP LAB BLOOD ORDERABLES F inal Result Performing Organization Address City/[facility] Co de Phone Number [facility] Department [place] [address] * Critical Result Callback Chemistry (10/20/2024 1:01 PM CDT) Date Notified 20241020 Time Notified 1403 CORRY CATALAN TestName Calcium CORRY CATALAN Called/Read Back Tequila CATALAN Credentials RN CORRY CATALAN Called By AR CORRY CATALAN Blood 10/20/2024 1:01 PM CDT 10/20/2024 1:32 PM CDT us Randy Bird NP LAB BLOOD ORDERABLES F inal Result [facility] [place] [address] * (ABNORMAL) Pro B-type natriuretic peptide (10/20/2024 1:01 PM CDT) NT-proBNP 4,279(H) <=450 pg/mL Comment: Interpretive Comments: A. Dyspnea in Acute Care Setting All Ages: < 300 pg/ml, acute heart failure unlikely. < 50 yrs: 300 - 450 pg/ml, further investigation warranted. > 450 pg/ml, acute heart failure likely. 50 - 74 yrs: 300 - 900 pg/ml, further investigation warranted. > 900 pg/ml, acute heart failure likely . > or = 75 yrs: 450 - 1800 pg/ml, further investigation warranted. > 1800 pg/ml, acute heart failure likely. B. Non-acute Setting < 75 yrs < 125 pg/ml, rules out heart failure. > or = 125 pg/ml, further investigation warranted. > or = 75 yrs < 450 pg/ml, rules out heart failure. > or = 450 pg/ml, further investigation warranted. - Knowledge of each individual patient's NT-proBNP range may be more useful than using similar cut-points for every patient. Please note that marked elevations in NT-proBNP levels may be observed in state other than Left Ventricular Congestive Failure, including: acute coronary syndromes, right heart strain/failure (including pulmonary embolism and cor pulmonale), critical illness, renal failure, as well as advanced age. - References: 1. Tami VU et.al. Eur Heart J. 2006:27:330-337. 2. Denise CIFUENTES, Kacie LOPEZ. J. AM Emani Cardiol: Cardiovasc Imag. 2009;2: 216- 225. Interpretive Data Last Revised Date: 2018. Blood 10/20/2024 1:01 PM CDT 10/20/2024 1:32 PM CDT Randy Bird [employer] [facility] LAB BLOOD ORDERABLES F inal Result [facility] [place] [address] * (ABNORMAL) CBC with auto differential (10/20/2024 1:01 PM CDT) WBC 11.6(H) 3.8 - 9.9 K/cumm Hgb 8.5(L) 11.9 - 15.5 g/dL [facility] Hct 26.1(L) 35.6 - 45.5 % [facility] Plt 361 150 - 400 K/cumm [facility] MPV 9.4 9.1 - 12.3 fL [facility] RBC 2.99(L) 3.90 - 5.20 M/cumm [facility] MCV 87.3 81.3 - 96.4 fL [facility] MCH 28.4 27.1 - 33.3 pg [facility] MCHC 32.6 32.3 - 35.7 g/dL [facility] RDW CV 16.8(H) 11.1 - 14.9 % [facility] RDW SD 52.0(H) 35.7 - 48.1 fL [facility] NRBC abs 0.04(H) 0.00 - 0.01 K/cumm [facility] Blood 10/20/2024 1:01 PM CDT 10/20/2024 1:32 PM CDT Randy Tavarez Hammerman [employer] LAB BLOOD ORDERABLES F inal Result [facility] [place] [address] * (ABNORMAL) Manual Differential (10/20/2024 1:01 PM CDT) Differential Manual Cells Counted 117 [facility] Neutrophil abs 10.7(H) 1.5 - 6.5 K/cumm [facility] Imm gran abs 0.0 0.0 - 0.1 K/cumm [facility] Lymphocyte abs 0.8 0.8 - 3.3 K/cumm [facility] Monocyte abs 0.1(L) 0.2 - 0.8 K/cumm [facility] Neutrophil pct 92.3 % [facility] Comment: Interpretive Data Percent cell count reference ranges are not reported, since discordance with absolute values may lead to misinterpretation of CBC data. Current Interpretive Data was last revised on 2017. Lymphocyte pct 6.8 % [facility] Comment: Interpretive Data Percent cell count reference ranges are not reported, since discordance with absolute values may lead to misinterpretation of CBC data. Current Interpretive Data was last revised on 2017. Monocyte pct 0.9 % [facility] Comment: Interpretive Data Percent cell count reference ranges are not reported, since discordance with absolute values may lead to misinterpretation of CBC data. Current Interpretive Data was last revised on 2017. Blood 10/20/2024 1:01 PM CDT 10/20/2024 1:35 PM CDT Randy Bird [employer] LAB BLOOD ORDERABLES F inal Result Performing Organization Address City/[facility]/ZIP Co de Phone Number [facility] [place] [address] * aPTT (10/20/2024 1:01 PM CDT) aPTT 35 28 - 38 sec Comment: Interpretive Data Heparin therapeutic range: 66.0 - 100.0 seconds. Range based on correlation with therapeutic heparin activity range of 0.3 - 0.7 Units/mL. Current interpretive data was last revised on 2023. Blood 10/20/2024 1:01 PM CDT 10/20/2024 1:16 PM CDT Kobe CATALAN - 10/20/2024 1:40 PM CDT STAT PTT timing: - Draw 6 hours after heparin infusion initiation - Draw 6 hours after every dose change until 2 consecutive PTTs are therapeutic - Once 2 consecutive PTTs are therapeutic, obtain with daily labs until infusion is discontinued - - Restart every 6 hour lab draws and follow instructions accordingly if PTT is outside of therapeutic range Do not draw lab from IV line that is actively infusing heparin. Use the opposite arm. If arm with actively infusing heparin must be used, pause the infusion for at least 2 minutes, and draw specimen below the IV site. For patients with a central venous catheter (CVC), lab must be drawn peripherally (not from CVC). us Randy Bird NP LAB BLOOD ORDERABLES F inal Result Performing Organization Address City/[facility]/ZIP Co de Phone Number [facility] Department [place] [address] * (ABNORMAL) Phosphorus (10/20/2024 1:01 PM CDT) Phosphorus, pl 1.8(L) 2.3 - 4.5 mg/dL Blood 10/20/2024 1:01 PM CDT 10/20/2024 1:32 PM CDT Randy Bird NP LAB BLOOD ORDERABLES F inal Result [facility] Department [place] [address] * Magnesium (10/20/2024 1:01 PM CDT) Magnesium 1.6 1.4 - 2.5 mg/dL Blood 10/20/2024 1:01 PM CDT 10/20/2024 1:32 PM CDT us Randy Bird NP LAB BLOOD ORDERABLES F inal Result [facility] [place] [address] * (ABNORMAL) Comprehensive metabolic panel (10/20/2024 1:01 PM CDT) [facility] Sodium 136 135 - 145 mmol/L Potassium, pl 2.8(L) 3.3 - 4.9 mmol/L [facility] Chloride 108 97 - 110 mmol/L [facility] Comment:Repeated and Verifie d CO2 20(L) 22 - 32 mmol/L [facility] Anion gap 8 2 - 15 mmol/L [facility] BUN 10 6 - 25 mg/dL [facility] Creatinine 0.29(L) 0.60 - 1.10 mg/dL [facility] Glucose 158 70 - 199 mg/dL [facility] Comment: Interpretive Data Fasting glucose >/= 126 mg/dl is diagnostic for diabetes. Fasting is defined as no caloric intake for at least 8 hours. Fasting glucose between 100 mg/dl to 125 mg/dl is diagnostic of prediabetes. In a patient with classic symptoms of hyperglycemia or hyperglycemic crisis, a random glucose >/= 200 mg/dl is diagnostic for diabetes. In the absence of unequivocal hyperglycemia, results should be confirmed by repeat testing. The classification and Diagnosis of Diabetes Diabetes Care 2021; 46: S19-S40. Current interpretive data was last revised 2022. Calcium 5.4(C) 8.5 - 10.3 mg/dL [facility] Comment:Repeated and Verifie d Bilirubin, total 0.2 0.1 - 1.2 mg/dL [facility] Protein, pl 3.7(L) 6.5 - 8.5 g/dL [facility] Albumin 1.5(L) 3.5 - 5.0 g/dL [facility] Alk phos 94 40 - 130 Units/L [facility] ALT 20 7 - 45 Units/L [facility] AST 29 10 - 45 Units/L [facility] Blood 10/20/2024 1:01 PM CDT 10/20/2024 1:32 PM CDT Randy Bird [employer] LAB BLOOD ORDERABLES F inal Result Performing Organization Address [facility]/ZIP Co de Phone Number [facility] [place] [address] * (ABNORMAL) Urinalysis reflex to microscopic and culture Urine, indwelling catheter (10/20/2024 11:35 AM CDT) Color, ur Yellow Yellow Clarity, ur Clear Clear [facility] Specific gravity, ur 1.042(H) 1.003 - 1.030 [facility] pH, urine 6.5 [facility] Comment: Interpretive Data U rine pH is affected by diet, medications, systemic acid-base disturbances, and renal tubular function. pH may affect urinary stone formation. For example, urine pH below 6.0 may help reduce the tendency for calcium phosphate stones and pH greater than 6.0 may reduce the tendency for uric acid stone formation. Source: [facility] Current Interpretive Data was last revised on 2017 Protein, ur ql 1+(A) Negative [facility] Glucose, ur ql Negative Negative [facility] Ketones, ur 2+(A) Negative [facility] Bilirubin, ur Negative Negative [facility] Blood, ur Negative Negative [facility] Urobilinogen, ur <2.0 <2.0 mg/dL [facility] Nitrite, ur Negative Negative [facility] Leukocyte esterase, ur Negative Negative [facility] UA reflex comment Reflex to microscopic UA will be performed. [facility] Urine, indwelling catheter 10/20/2024 11:35 AM CDT 10/20/2024 11:49 AM CDT Randy Bird NP LAB MICROBIOLOGY - GEN ERAL ORDERABLES Final Result Performing Organization Address [facility] Co de Phone Number [facility] Department [place] [address] * (ABNORMAL) Urinalysis, microscopic only (10/20/2024 11:35 AM CDT) WBC, ur 11-20(A) 0 - 5 /HPF RBC, ur 3-5(A) 0 - 2 /HPF [facility] Epithelial cells, squamous, ur 1-5 0 - 5 /HPF [facility] Epithelial cells, renal, ur 1-5(A) 0 - 0 /HPF [facility] Epithelial cells, transitional, ur 1-5 0 - 0 /HPF [facility] Bacteria, ur Trace(A) [facility] Mucous, ur Present(A) [facility] Hyaline casts, ur 11-20(A) 0 - 10 /LPF [facility] Culture Reflex Comment Reflex to urine culture will be performed. [facility] Urine, indwelling catheter 10/20/2024 11:35 AM CDT 10/20/2024 11:49 AM CDT Randy Bird NP LAB URINE ORDERABLES F inal Result [facility] [place] [address] * Urine culture Urine, indwelling catheter (10/20/2024 11:35 AM CDT) Report Final Report: Less than 100,000 colonies/mL (clinically insignificant growth based on current clinical standards) Organism (CLINICALLY INSIGNIFICANT GROWTH [facility] Urine, indwelling catheter 10/20/2024 11:35 AM CDT 10/20/2024 12:41 PM CDT Narrative [facility] - 10/21/2024 3:35 PM CDT Urine culture reflexed based upon urinalysis results. Testing performed by [facility] Microbiology Laboratory ([phone]) Randy Bird [employer] LAB MICROBIOLOGY - GEN ERAL ORDERABLES Final Result [facility] [place] [address] * XR Chest 1 View (10/20/2024 9:03 AM CDT) Anatomical Region Laterality Modality Body, Chest N/A Computed Radiogr aphy 10/20/2024 10:3 2 AM CDT Impressions 10/20/2024 11:43 AM CDT The current study is compared with the prior radiograph dated 10/18/2024. Stable postsurgical changes of cervicothoracolumbar fixation. Bibasilar atelectasis. Stable right lower lobar collapse. Interval improvement in left lower lobe atelectasis. Interval improvement in mild pulmonary edema. Stable right pleural effusion. The cardiomediastinal silhouette is normal. No pneumothorax. Dictated by: Nicholas Spencer M.D. The radiology attending physician has personally reviewed this study, and had reviewed and/or edited this written report and agrees with it. Electronically signed by: Geni Palafox M.D. Narrative 10/20/2024 11:43 AM CDT EXAMINATION: 1 view chest radiograph Procedure Note Geni Palafox MD - 10/20/2024 EXAMINATION: 1 view chest radiograph IMPRESSION: The current study is compared with the prior radiograph dated 10/18/2024. Stable postsurgical changes of cervicothoracolumbar fixation. Bibasilar atelectasis. Stable right lower lobar collapse. Interval improvement in left lower lobe atelectasis. Interval improvement in mild pulmonary edema. Stable right pleural effusion. The cardiomediastinal silhouette is normal. No pneumothorax. Dictated by: Nicholas Spencer M.D. The radiology attending physician has personally reviewed this study, and had reviewed and/or edited this written report and agrees with it. Electronically signed by: Geni Palafox M.D. Shubham Mclaughlin MD IMG XR PROCEDURES Final Result * XR Abdomen Ap 1 Vw (10/20/2024 9:03 AM CDT) Anatomical Region Laterality Modality Body, Abdomen N/A Computed Radiogr aphy 10/20/2024 11:1 6 AM CDT Impressions 10/20/2024 3:46 PM CDT Interval decrease in gaseous distention of the stomach. Slight interval decrease in gaseous distention throughout the colon and small bowel, likely improving ileus. Partially imaged instrumented thoracolumbar spinal fusion better characterized on recent spine radiographs dated 10/19/2024. Dictated by: Toñito Cruz MD The radiology attending physician has personally reviewed this study, and had reviewed and/or edited this written report and agrees with it. Electronically signed by: Shaq Ashley M.D. Narrative 10/20/2024 3:46 PM CDT EXAMINATION: Abdomen, one view. HISTORY: Abdominal distension. Recent spinal fusion revision 10/05/2024 COMPARISON: 10/14/2024 Procedure Note Shaq Ashley MD - 10/20/2024 EXAMINATION: Abdomen, one view. HISTORY: Abdominal distension. Recent spinal fusion revision 10/05/2024 COMPARISON: 10/14/2024 IMPRESSION: Interval decrease in gaseous distention of the stomach. Slight interval decrease in gaseous distention throughout the colon and small bowel, likely improving ileus. Partially imaged instrumented thoracolumbar spinal fusion better characterized on recent spine radiographs dated 10/19/2024. Dictated by: Toñito Cruz MD The radiology attending physician has personally reviewed this study, and had reviewed and/or edited this written report and agrees with it. Electronically signed by: Shaq Ashley M.D. us Randy Bird [employer] IMG XR PROCEDURES Monie l Result * ECG 12 lead (10/20/2024 8:45 AM CDT) Ventricular Rate EKG/Min 144 BPM [facility] Atrial Rate 79 BPM [facility] QRS-Interval (MSEC) 82 ms [facility] QT-Interval (MSEC) 294 ms [facility] QTc 455 ms [facility] R [place] 19 degrees [facility] T [place] 219 degrees [facility] Diagnosis Atrial fibrillation with rapid ventricular response Nonspecific T wave abnormality Abnormal ECG When compared with ECG of 07-OCT-2024 09:30, Vent. rate has increased BY 67 BPM Nonspecific T wave abnormality, worse in Inferior leads Nonspecific T wave abnormality now evident in Anterolateral leads Confirmed by FELICITA CLARK M.D ([id number]) on 10/21/2024 12:36:54 PM [facility] 10/20/2024 8:45 AM CDT 10/21/2024 12:36 PM CDT us Supriya Phillips MD ECG ORDERABLES Final Result Performing Organization Address [facility]/ZIP Co de Phone Number [facility] * (ABNORMAL) POCT [id number], WB - ISTAT (10/20/2024 8:29 AM CDT) Pathologist [facility] Na POC 132(L) 135 - 145 mmol/L K POC 3.5 3.3 - 4.9 mmol/L [facility] Comment: Interpretive Data This method is not able to assess for hemolysis, which may falsely increase potassium concentrations. If further testing is needed to evaluate this result, consider in-laboratory plasma potassium. Current Interpretive Data was last revised on 2022. Glucose POC i-STAT 121 70 - 199 mg/dL [facility] Hct, POC 32.0(L) 35.6 - 45.5 % [facility] Blood 10/20/2024 8:29 AM CDT 10/20/2024 8:29 AM CDT us Shubham Mclaughlin MD LAB POCT ORDERABLES - DEVICE Fin al Result [facility] Department [place] [address] * (ABNORMAL) Arterial Blood gas w/Lactate POCT (10/20/2024 8:25 AM CDT) Pathologist [facility] Lactate POC i-STAT 1.3 0.7 - 2.0 mmol/L pH POC 7.47(H) 7.35 - 7.45 [facility] pCO2, Art POC 32(L) 35 - 45 mmHg [facility] PO2 POC 40(C) 80 - 105 mmHg [facility] CO2, total POC 24 20 - 30 mmol/L [facility] HCO3, POC 23 21 - 30 mmol/L [facility] BE POC 0 -2 - 3 mmol/L [facility] O2 sat POC 79(L) 95 - 98 % [facility] Blood 10/20/2024 8:25 AM CDT 10/20/2024 8:25 AM CDT Shubham Mclaughlin MD LAB BLOOD ORDERABLES Final Resul t [facility] [place] [address] * Blood culture Blood (10/20/2024 8:24 AM CDT) Report Final Report: No growth Blood 10/20/2024 8:24 AM CDT 10/20/2024 8:35 AM CDT Narrative [facility] - 10/24/2024 12:00 PM CDT Collection->Peripheral 1. Blood cultures are incubated for 4 days on a continuously monitored blood culture system. The first report of a negative culture is issued within 24 hours of receipt of the specimen in the laboratory. 2. Positive culture results are reported as soon as they are detected. 3. The most important factor for detection of microbes in the setting of bloodstream infection is the volume of blood submitted for culture. Failure to collect an optimal blood volume can result in false negative blood cultures. 4. For pediatric patients, the recommended blood volume to collect follows a weight based strategy. See the electronic test catalog for collection instructions. 5. For positive blood cultures, a rapid molecular test may be performed for organism identification using the nolan ePlex blood culture identification panel for gram positive (BCID-GP) and gram negative (BCID-GN) organisms. This nucleic acid amplification test detects microbial DNA in positive blood culture broth. This assay has been cleared by the [place] Food and Drug Administration and its performance characteristics have been verified by the [facility] Microbiology Laboratory. For questions about this culture, contact the Microbiology Laboratory at [phone]. Interpretive data was last revised on 24. us Shubham Mclaughlin MD LAB MICROBIOLOGY - GENERAL ORDER SCOT Final Result Performing Organization Address City/[facility] Co de Phone Number [facility] [place] [address] * Troponin I high-sensitivity (10/20/2024 8:15 AM CDT) Trop I hs 7 <=17 ng/L Comment: Interpretive Data For further hscTnI resources including the diagnostic algorithm and an aid in interpretation, copy and paste this link: [email or web address].testcatalog.org/show/[email or web address] Current Interpretive Data last revised 2020. Blood 10/20/2024 8:15 AM CDT 10/20/2024 8:29 AM CDT Shubham Mclaughlin MD LAB BLOOD ORDERABLES Final Resul t Performing Organization Address [facility] Co de Phone Number [facility] [place] [address] * eGFR (10/20/2024 8:15 AM CDT) eGFR >90 >=60 mL/min/1. 73 m2 Comment: Interpretive Data Reference Interval Normal >/= 90 mL/min/1.73m2 Mildly decreased* 60 - 89 mL/min/1.73m2 Mildly to moderately decreased 45 - 59 mL/min/1.73m2 Moderately to severely decreased 30 - 44 mL/min/1.73m2 Severely decreased 15 - 29 mL/min/1.73m2 Kidney Failure < 15 mL/min/1.73m2 *Relative to young adult level Estimated glomerular filtration rate is determined by the 2020 CKD-EPI equation recommended by the National Kidney Foundation (A Unifying Approach to GFR Estimation: Recommendations of the NKF-ASK Task Force on Reassessing the Inclusion of Race in Diagnosing Kidney Disease, JASN 2020). The CKD-EPI equation should not be used for patients with unstable renal function and has not been validated in children and those over 70. Current interpretive data was last reviewed 2021. Blood 10/20/2024 8:15 AM CDT 10/20/2024 8:29 AM CDT Shubham Mclaughlin MD LAB BLOOD ORDERABLES Final Resul t [facility] [place] [address] * (ABNORMAL) Differential, auto (10/20/2024 8:15 AM CDT) Neutrophil abs 10.6(H) 1.5 - 6.5 K/cumm Imm gran abs 1.3(H) 0.0 - 0.1 K/cumm [facility] Lymphocyte abs 1.1 0.8 - 3.3 K/cumm [facility] Monocyte abs 0.6 0.2 - 0.8 K/cumm [facility] Eosinophil abs 0.1 0.0 - 0.5 K/cumm [facility] Basophil abs 0.0 0.0 - 0.1 K/cumm [facility] Neutrophil pct 77.5 % [facility] Comment: Confirmed by smear review Interpretive Data Percent cell count reference ranges are not reported, since discordance with absolute values may lead to misinterpretation of CBC data. Current Interpretive Data was last revised on 2017. Imm gran pct 9.5 % [facility] Comment: Interpretive Data Percent cell count reference ranges are not reported, since discordance with absolute values may lead to misinterpretation of CBC data. Current Interpretive Data was last revised on 2017. Lymphocyte pct 7.9 % [facility] Comment: Interpretive Data Percent cell count reference ranges are not reported, since discordance with absolute values may lead to misinterpretation of CBC data. Current Interpretive Data was last revised on 2017. Monocyte pct 4.2 % [facility] Comment: Interpretive Data Percent cell count reference ranges are not reported, since discordance with absolute values may lead to misinterpretation of CBC data. Current Interpretive Data was last revised on 2017. Eosinophil pct 0.7 % [facility] Comment: Interpretive Data Percent cell count reference ranges are not reported, since discordance with absolute values may lead to misinterpretation of CBC data. Current Interpretive Data was last revised on 2017. Basophil pct 0.2 % [facility] Comment: Interpretive Data Percent cell count reference ranges are not reported, since discordance with absolute values may lead to misinterpretation of CBC data. Current Interpretive Data was last revised on 2017. Blood 10/20/2024 8:15 AM CDT 10/20/2024 8:29 AM CDT Shubham Mclaughlin MD LAB BLOOD ORDERABLES Final Resul t [facility] [place] [address] * (ABNORMAL) CBC with auto differential (10/20/2024 8:15 AM CDT) WBC 13.7(H) 3.8 - 9.9 K/cumm Hgb 11.3(L) 11.9 - 15.5 g/dL [facility] Hct 34.1(L) 35.6 - 45.5 % [facility] Plt 464(H) 150 - 400 K/cumm [facility] MPV 9.3 9.1 - 12.3 fL [facility] RBC 3.97 3.90 - 5.20 M/cumm [facility] MCV 85.9 81.3 - 96.4 fL [facility] MCH 28.5 27.1 - 33.3 pg [facility] MCHC 33.1 32.3 - 35.7 g/dL [facility] RDW CV 16.5(H) 11.1 - 14.9 % [facility] RDW SD 51.4(H) 35.7 - 48.1 fL [facility] NRBC abs 0.07(H) 0.00 - 0.01 K/cumm [facility] Blood 10/20/2024 8:15 AM CDT 10/20/2024 8:29 AM CDT Shubham Mclaughlin MD LAB BLOOD ORDERABLES Final Resul t [facility] [place] [address] * Blood culture Blood (10/20/2024 8:15 AM CDT) Report Final Report: No growth Blood 10/20/2024 8:15 AM CDT 10/20/2024 8:35 AM CDT Narrative [facility] - 10/24/2024 12:00 PM CDT Collection->Peripheral 1. Blood cultures are incubated for 4 days on a continuously monitored blood culture system. The first report of a negative culture is issued within 24 hours of receipt of the specimen in the laboratory. 2. Positive culture results are reported as soon as they are detected. 3. The most important factor for detection of microbes in the setting of bloodstream infection is the volume of blood submitted for culture. Failure to collect an optimal blood volume can result in false negative blood cultures. 4. For pediatric patients, the recommended blood volume to collect follows a weight based strategy. See the electronic test catalog for collection instructions. 5. For positive blood cultures, a rapid molecular test may be performed for organism identification using the nolan ePlex blood culture identification panel for gram positive (BCID-GP) and gram negative (BCID-GN) organisms. This nucleic acid amplification test detects microbial DNA in positive blood culture broth. This assay has been cleared by the [place] Food and Drug Administration and its performance characteristics have been verified by the [facility] Microbiology Laboratory. For questions about this culture, contact the Microbiology Laboratory at [phone]. Interpretive data was last revised on 24. Shubham Mclaughlin MD LAB MICROBIOLOGY - GENERAL ORDER SCOT Final Result Performing Organization Address City/[facility]/ZIP Co de Phone Number [facility] [place] [address] * (ABNORMAL) Phosphorus (10/20/2024 8:15 AM CDT) [facility] Phosphorus, pl 2.2(L) 2.3 - 4.5 mg/dL Blood 10/20/2024 8:15 AM CDT 10/20/2024 8:29 AM CDT us Shubham Mclaughlin MD LAB BLOOD ORDERABLES Final Resul t Performing Organization Address City/[facility] de Phone Number [facility] [place] [address] * Magnesium (10/20/2024 8:15 AM CDT) [facility] Magnesium 1.8 1.4 - 2.5 mg/dL Blood 10/20/2024 8:15 AM CDT 10/20/2024 8:29 AM CDT Shubham Mclaughlin MD LAB BLOOD ORDERABLES Final Resul t Performing Organization Address [facility] de Phone Number [facility] [place] [address] * (ABNORMAL) Basic metabolic panel (10/20/2024 8:15 AM CDT) [facility] Sodium 135 135 - 145 mmol/L Potassium, pl 3.6 3.3 - 4.9 mmol/L [facility] Chloride 98 97 - 110 mmol/L [facility] CO2 25 22 - 32 mmol/L [facility] Anion gap 12 2 - 15 mmol/L [facility] BUN 14 6 - 25 mg/dL [facility] Creatinine 0.39(L) 0.60 - 1.10 mg/dL [facility] Glucose 104 70 - 199 mg/dL [facility] Comment: Interpretive Data Fasting glucose >/= 126 mg/dl is diagnostic for diabetes. Fasting is defined as no caloric intake for at least 8 hours. Fasting glucose between 100 mg/dl to 125 mg/dl is diagnostic of prediabetes. In a patient with classic symptoms of hyperglycemia or hyperglycemic crisis, a random glucose >/= 200 mg/dl is diagnostic for diabetes. In the absence of unequivocal hyperglycemia, results should be confirmed by repeat testing. The classification and Diagnosis of Diabetes Diabetes Care 202; 46: S19-S40. Current interpretive data was last revised 2022. Calcium 7.7(L) 8.5 - 10.3 mg/dL [facility] Blood 10/20/2024 8:15 AM CDT 10/20/2024 8:29 AM CDT us Shubham Mclaughlin MD LAB BLOOD ORDERABLES Final Resul t [facility] [place] [address] * eGFR (10/19/2024 8:55 PM CDT) eGFR >90 >=60 mL/min/1. 73 m2 Comment: Interpretive Data Reference Interval Normal >/= 90 mL/min/1.73m2 Mildly decreased* 60 - 89 mL/min/1.73m2 Mildly to moderately decreased 45 - 59 mL/min/1.73m2 Moderately to severely decreased 30 - 44 mL/min/1.73m2 Severely decreased 15 - 29 mL/min/1.73m2 Kidney Failure < 15 mL/min/1.73m2 *Relative to young adult level Estimated glomerular filtration rate is determined by the 2020 CKD-EPI equation recommended by the National Kidney Foundation (A Unifying Approach to GFR Estimation: Recommendations of the NKF-ASK Task Force on Reassessing the Inclusion of Race in Diagnosing Kidney Disease, JASN 2020). The CKD-EPI equation should not be used for patients with unstable renal function and has not been validated in children and those over 70. Current interpretive data was last reviewed 2021. Blood 10/19/2024 8:55 PM CDT 10/19/2024 9:45 PM CDT us [place] DUMONT LAB BLOOD ORDERABLE S Final Result [facility] [place] [address] * (ABNORMAL) Differential, auto (10/19/2024 8:55 PM CDT) Neutrophil abs 10.0(H) 1.5 - 6.5 K/cumm Imm gran abs 1.5(H) 0.0 - 0.1 K/cumm [facility] Lymphocyte abs 1.1 0.8 - 3.3 K/cumm [facility] Monocyte abs 0.6 0.2 - 0.8 K/cumm [facility] Eosinophil abs 0.1 0.0 - 0.5 K/cumm [facility] Basophil abs 0.0 0.0 - 0.1 K/cumm [facility] Neutrophil pct 75.4 % [facility] Comment: Confirmed by smear review Interpretive Data Percent cell count reference ranges are not reported, since discordance with absolute values may lead to misinterpretation of CBC data. Current Interpretive Data was last revised on 2017. Imm gran pct 11.0 % [facility] Comment: Interpretive Data Percent cell count reference ranges are not reported, since discordance with absolute values may lead to misinterpretation of CBC data. Current Interpretive Data was last revised on 2017. Lymphocyte pct 8.2 % [facility] Comment: Interpretive Data Percent cell count reference ranges are not reported, since discordance with absolute values may lead to misinterpretation of CBC data. Current Interpretive Data was last revised on 2017. Monocyte pct 4.4 % [facility] Comment: Interpretive Data Percent cell count reference ranges are not reported, since discordance with absolute values may lead to misinterpretation of CBC data. Current Interpretive Data was last revised on 2017. Eosinophil pct 0.8 % [facility] Comment: Interpretive Data Percent cell count reference ranges are not reported, since discordance with absolute values may lead to misinterpretation of CBC data. Current Interpretive Data was last revised on 2017. Basophil pct 0.2 % [facility] [place] Comment: Interpretive Data Percent cell count reference ranges are not reported, since discordance with absolute values may lead to misinterpretation of CBC data. Current Interpretive Data was last revised on 2017. Blood 10/19/2024 8:55 PM CDT 10/19/2024 9:44 PM CDT us Cinthya Means [employer] LAB BLOOD ORDERABLES Monie l Result Performing Organization Address City/[facility]/ZIP Co de Phone Number [facility] [place] [address] * Thyroid Function [place] (10/19/2024 8:55 PM CDT) [facility] TSH 2.25 0.30 - 4.20 mcIUnit/mL Blood 10/19/2024 8:55 PM CDT 10/19/2024 9:45 PM CDT us Shubham Mclaughlin MD LAB BLOOD ORDERABLES Final Resul t Performing Organization Address [facility] de Phone Number [facility] [place] [employer] [place] [address] * (ABNORMAL) CBC with auto differential (10/19/2024 8:55 PM CDT) [facility] WBC 13.2(H) 3.8 - 9.9 K/cumm Hgb 9.5(L) 11.9 - 15.5 g/dL [facility] Hct 28.5(L) 35.6 - 45.5 % [facility] Plt 435(H) 150 - 400 K/cumm [facility] MPV 9.5 9.1 - 12.3 fL [facility] RBC 3.33(L) 3.90 - 5.20 M/cumm [facility] MCV 85.6 81.3 - 96.4 fL [facility] MCH 28.5 27.1 - 33.3 pg [facility] MCHC 33.3 32.3 - 35.7 g/dL [facility] RDW CV 16.5(H) 11.1 - 14.9 % [facility] RDW SD 50.6(H) 35.7 - 48.1 fL [facility] NRBC abs 0.08(H) 0.00 - 0.01 K/cumm [facility] Blood 10/19/2024 8:55 PM CDT 10/19/2024 9:44 PM CDT Cinthya Noemi Miguelangel [employer] LAB BLOOD ORDERABLES Monie l Result [facility] Department [place] [address] * (ABNORMAL) Phosphorus (10/19/2024 8:55 PM CDT) [facility] Phosphorus, pl 1.8(L) 2.3 - 4.5 mg/dL Blood 10/19/2024 8:55 PM CDT 10/19/2024 9:45 PM CDT [place] Jeffery PA LAB BLOOD ORDERABLE S Final Result Performing Organization Address [facility] de Phone Number [facility] [place] [address] * (ABNORMAL) Basic metabolic panel (10/19/2024 8:55 PM CDT) [facility] Sodium 137 135 - 145 mmol/L Potassium, pl 3.6 3.3 - 4.9 mmol/L [facility] Chloride 100 97 - 110 mmol/L [facility] CO2 24 22 - 32 mmol/L [facility] Anion gap 13 2 - 15 mmol/L [facility] BUN 13 6 - 25 mg/dL [facility] Creatinine 0.42(L) 0.60 - 1.10 mg/dL [facility] Glucose 147 70 - 199 mg/dL [facility] Comment: Interpretive Data Fasting glucose >/= 126 mg/dl is diagnostic for diabetes. Fasting is defined as no caloric intake for at least 8 hours. Fasting glucose between 100 mg/dl to 125 mg/dl is diagnostic of prediabetes. In a patient with classic symptoms of hyperglycemia or hyperglycemic crisis, a random glucose >/= 200 mg/dl is diagnostic for diabetes. In the absence of unequivocal hyperglycemia, results should be confirmed by repeat testing. The classification and Diagnosis of Diabetes Diabetes Care 2021; 46: S19-S40. Current interpretive data was last revised 2022. Calcium 7.6(L) 8.5 - 10.3 mg/dL [facility] Blood 10/19/2024 8:55 PM CDT 10/19/2024 9:45 PM CDT [place] DUMONT LAB BLOOD ORDERABLE S Final Result [facility] [place] [address] * (ABNORMAL) CBC with auto differential (10/19/2024 8:30 PM CDT) WBC 12.9(H) 3.8 - 9.9 K/cumm Hgb 9.5(L) 11.9 - 15.5 g/dL [facility] Hct 28.7(L) 35.6 - 45.5 % [facility] Plt 422(H) 150 - 400 K/cumm [facility] MPV 9.4 9.1 - 12.3 fL [facility] RBC 3.33(L) 3.90 - 5.20 M/cumm [facility] MCV 86.2 81.3 - 96.4 fL [facility] MCH 28.5 27.1 - 33.3 pg [facility] MCHC 33.1 32.3 - 35.7 g/dL [facility] RDW CV 16.3(H) 11.1 - 14.9 % [facility] RDW SD 50.3(H) 35.7 - 48.1 fL [facility] NRBC abs 0.10(H) 0.00 - 0.01 K/cumm [facility] Blood 10/19/2024 8:30 PM CDT 10/19/2024 9:44 PM CDT us [place] DUMONT LAB BLOOD ORDERABLE S Final Result [facility] [place] [address] * (ABNORMAL) Manual Differential (10/19/2024 8:30 PM CDT) Differential Manual Cells Counted 129 [facility] Neutrophil abs 10.7(H) 1.5 - 6.5 K/cumm [facility] Imm gran abs 0.2(H) 0.0 - 0.1 K/cumm [facility] Lymphocyte abs 0.9 0.8 - 3.3 K/cumm [facility] Monocyte abs 0.8 0.2 - 0.8 K/cumm [facility] Eosinophil abs 0.2 0.0 - 0.5 K/cumm [facility] Basophil abs 0.1 0.0 - 0.1 K/cumm [facility] Neutrophil pct 82.8 % [facility] Comment: Interpretive Data Percent cell count reference ranges are not reported, since discordance with absolute values may lead to misinterpretation of CBC data. Current Interpretive Data was last revised on 2017. Lymphocyte pct 7.0 % [facility] Comment: Interpretive Data Percent cell count reference ranges are not reported, since discordance with absolute values may lead to misinterpretation of CBC data. Current Interpretive Data was last revised on 2017. Monocyte pct 6.2 % [facility] Comment: Interpretive Data Percent cell count reference ranges are not reported, since discordance with absolute values may lead to misinterpretation of CBC data. Current Interpretive Data was last revised on 2017. Eosinophil pct 1.6 % [facility] Comment: Interpretive Data Percent cell count reference ranges are not reported, since discordance with absolute values may lead to misinterpretation of CBC data. Current Interpretive Data was last revised on 2017. Basophil pct 0.8 % [facility] Comment: Interpretive Data Percent cell count reference ranges are not reported, since discordance with absolute values may lead to misinterpretation of CBC data. Current Interpretive Data was last revised on 2017. Metamyelocyte pct 1.6(H) 0.0 - 0.0 % [facility] Blood 10/19/2024 8:30 PM CDT 10/19/2024 9:50 PM CDT [place] DUMONT LAB BLOOD ORDERABLE S Final Result [facility] [place] [address] * XR Spine Lumbar 2 or 3 Views (10/19/2024 12:39 PM CDT) Anatomical Region Laterality Modality Spine N/A Computed Radiogr aphy 10/19/2024 3:28 PM CDT Impressions 10/19/2024 3:46 PM CDT Unchanged posterior instrumented spinal fusion from C2 to the pelvis with bilateral sacroiliac screws. Dictated by: Adilson Fernández M.D. The radiology attending physician has personally reviewed this study, and had reviewed and/or edited this written report and agrees with it. Electronically signed by: Edil Bell M.D. Narrative 10/19/2024 3:46 PM CDT EXAMINATION: XR SPINE LUMBAR 2 OR 3 VIEWS, XR SPINE CERVICAL 2 OR 3 VIEWS, XR SPINE THORACIC 2 VIEWS HISTORY: Revision PSF C2-T10, PSO T3 COMPARISON: Scoliosis radiographs 525 FINDINGS: Post-surgical changes of posterior instrumented spinal fusion from C2 to the pelvis with bilateral sacroiliac screws. Unchanged discontinuity of the left posterior jacqueline at the level of L3-L4. Otherwise instrumentation is intact. Moraes temperature probe in place. Surgical rishabh overlie the left upper quadrant and pelvis. Partially visualized left total hip arthroplasty. Surgical drains are present. Procedure Note Edil Bell MD PhD - 10/19/2024 EXAMINATION: XR SPINE LUMBAR 2 OR 3 VIEWS, XR SPINE CERVICAL 2 OR 3 VIEWS, XR SPINE THORACIC 2 VIEWS HISTORY: Revision PSF C2-T10, PSO T3 COMPARISON: Scoliosis radiographs 525 FINDINGS: Post-surgical changes of posterior instrumented spinal fusion from C2 to the pelvis with bilateral sacroiliac screws. Unchanged discontinuity of the left posterior jacqueline at the level of L3-L4. Otherwise instrumentation is intact. Moraes temperature probe in place. Surgical rishabh overlie the left upper quadrant and pelvis. Partially visualized left total hip arthroplasty. Surgical drains are present. IMPRESSION: Unchanged posterior instrumented spinal fusion from C2 to the pelvis with bilateral sacroiliac screws. Dictated by: Adilson Fernández M.D. The radiology attending physician has personally reviewed this study, and had reviewed and/or edited this written report and agrees with it. Electronically signed by: Edil Bell M.D. Cinthya Means [employer] IMG XR PROCEDURES Final R esult * XR Spine Cervical 2 or 3 Views (10/19/2024 12:39 PM CDT) Anatomical Region Laterality Modality Spine N/A Computed Radiogr aphy 10/19/2024 3:28 PM CDT Impressions 10/19/2024 3:46 PM CDT Unchanged posterior instrumented spinal fusion from C2 to the pelvis with bilateral sacroiliac screws. Dictated by: Adilson Fernández M.D. The radiology attending physician has personally reviewed this study, and had reviewed and/or edited this written report and agrees with it. Electronically signed by: Edil Bell M.D. Narrative 10/19/2024 3:46 PM CDT EXAMINATION: XR SPINE LUMBAR 2 OR 3 VIEWS, XR SPINE CERVICAL 2 OR 3 VIEWS, XR SPINE THORACIC 2 VIEWS HISTORY: Revision PSF C2-T10, PSO T3 COMPARISON: Scoliosis radiographs 525 FINDINGS: Post-surgical changes of posterior instrumented spinal fusion from C2 to the pelvis with bilateral sacroiliac screws. Unchanged discontinuity of the left posterior jacqueline at the level of L3-L4. Otherwise instrumentation is intact. Moraes temperature probe in place. Surgical rishabh overlie the left upper quadrant and pelvis. Partially visualized left total hip arthroplasty. Surgical drains are present. Procedure Note Edil Bell MD PhD - 10/19/2024 EXAMINATION: XR SPINE LUMBAR 2 OR 3 VIEWS, XR SPINE CERVICAL 2 OR 3 VIEWS, XR SPINE THORACIC 2 VIEWS HISTORY: Revision PSF C2-T10, PSO T3 COMPARISON: Scoliosis radiographs 525 FINDINGS: Post-surgical changes of posterior instrumented spinal fusion from C2 to the pelvis with bilateral sacroiliac screws. Unchanged discontinuity of the left posterior jacqueline at the level of L3-L4. Otherwise instrumentation is intact. Moraes temperature probe in place. Surgical rishabh overlie the left upper quadrant and pelvis. Partially visualized left total hip arthroplasty. Surgical drains are present. IMPRESSION: Unchanged posterior instrumented spinal fusion from C2 to the pelvis with bilateral sacroiliac screws. Dictated by: Adilson Fernández M.D. The radiology attending physician has personally reviewed this study, and had reviewed and/or edited this written report and agrees with it. Electronically signed by: Edil Bell M.D. Cinthya Noemi Miguelangel MANCINI IMG XR PROCEDURES Final R esult * XR Spine Thoracic 2 Views (10/19/2024 12:39 PM CDT) Anatomical Region Laterality Modality Spine N/A Computed Radiogr aphy 10/19/2024 3:28 PM CDT Impressions 10/19/2024 3:46 PM CDT Unchanged posterior instrumented spinal fusion from C2 to the pelvis with bilateral sacroiliac screws. Dictated by: Adilson Fernández M.D. The radiology attending physician has personally reviewed this study, and had reviewed and/or edited this written report and agrees with it. Electronically signed by: Edil Bell M.D. Narrative 10/19/2024 3:46 PM CDT EXAMINATION: XR SPINE LUMBAR 2 OR 3 VIEWS, XR SPINE CERVICAL 2 OR 3 VIEWS, XR SPINE THORACIC 2 VIEWS HISTORY: Revision PSF C2-T10, PSO T3 COMPARISON: Scoliosis radiographs 525 FINDINGS: Post-surgical changes of posterior instrumented spinal fusion from C2 to the pelvis with bilateral sacroiliac screws. Unchanged discontinuity of the left posterior jacqueline at the level of L3-L4. Otherwise instrumentation is intact. Moraes temperature probe in place. Surgical rishabh overlie the left upper quadrant and pelvis. Partially visualized left total hip arthroplasty. Surgical drains are present. Procedure Note Edil Bell MD PhD - 10/19/2024 EXAMINATION: XR SPINE LUMBAR 2 OR 3 VIEWS, XR SPINE CERVICAL 2 OR 3 VIEWS, XR SPINE THORACIC 2 VIEWS HISTORY: Revision PSF C2-T10, PSO T3 COMPARISON: Scoliosis radiographs 525 FINDINGS: Post-surgical changes of posterior instrumented spinal fusion from C2 to the pelvis with bilateral sacroiliac screws. Unchanged discontinuity of the left posterior jacqueline at the level of L3-L4. Otherwise instrumentation is intact. Moraes temperature probe in place. Surgical rishabh overlie the left upper quadrant and pelvis. Partially visualized left total hip arthroplasty. Surgical drains are present. IMPRESSION: Unchanged posterior instrumented spinal fusion from C2 to the pelvis with bilateral sacroiliac screws. Dictated by: Adilson Fernández M.D. The radiology attending physician has personally reviewed this study, and had reviewed and/or edited this written report and agrees with it. Electronically signed by: Edil Bell M.D. Cinthya Means [employer] IMG XR PROCEDURES Final R esult * eGFR (10/18/2024 10:31 PM CDT) eGFR >90 >=60 mL/min/1. 73 m2 Comment: Interpretive Data Reference Interval Normal >/= 90 mL/min/1.73m2 Mildly decreased* 60 - 89 mL/min/1.73m2 Mildly to moderately decreased 45 - 59 mL/min/1.73m2 Moderately to severely decreased 30 - 44 mL/min/1.73m2 Severely decreased 15 - 29 mL/min/1.73m2 Kidney Failure < 15 mL/min/1.73m2 *Relative to young adult level Estimated glomerular filtration rate is determined by the 2020 CKD-EPI equation recommended by the National Kidney Foundation (A Unifying Approach to GFR Estimation: Recommendations of the NKF-ASK Task Force on Reassessing the Inclusion of Race in Diagnosing Kidney Disease, JASN 202). The CKD-EPI equation should not be used for patients with unstable renal function and has not been validated in children and those over 70. Current interpretive data was last reviewed 2021. Blood 10/18/2024 10:3 1 PM CDT 10/18/2024 10:43 PM CDT [place] DUMONT LAB BLOOD ORDERABLE S Final Result Performing Organization Address City/[facility]/ZIP Co de Phone Number [facility] [place] [address] * (ABNORMAL) CBC with auto differential (10/18/2024 10:31 PM CDT) [facility] WBC 11.5(H) 3.8 - 9.9 K/cumm Hgb 9.0(L) 11.9 - 15.5 g/dL [facility] Hct 26.8(L) 35.6 - 45.5 % [facility] Plt 378 150 - 400 K/cumm [facility] MPV 9.3 9.1 - 12.3 fL [facility] RBC 3.16(L) 3.90 - 5.20 M/cumm [facility] MCV 84.8 81.3 - 96.4 fL [facility] MCH 28.5 27.1 - 33.3 pg [facility] MCHC 33.6 32.3 - 35.7 g/dL [facility] RDW CV 16.0(H) 11.1 - 14.9 % [facility] RDW SD 49.3(H) 35.7 - 48.1 fL [facility] NRBC abs 0.07(H) 0.00 - 0.01 K/cumm [facility] Blood 10/18/2024 10:3 1 PM CDT 10/18/2024 10:43 PM CDT [place] DUMONT LAB BLOOD ORDERABLE S Final Result [facility] [place] [address] * (ABNORMAL) Manual Differential (10/18/2024 10:31 PM CDT) Pathologist [facility] Differential Manual Cells Counted 126 [facility] Neutrophil abs 9.9(H) 1.5 - 6.5 K/cumm [facility] Imm gran abs 0.3(H) 0.0 - 0.1 K/cumm [facility] Lymphocyte abs 0.8 0.8 - 3.3 K/cumm [facility] Monocyte abs 0.5 0.2 - 0.8 K/cumm [facility] Eosinophil abs 0.1 0.0 - 0.5 K/cumm [facility] Neutrophil pct 85.7 % [facility] Comment: Interpretive Data Percent cell count reference ranges are not reported, since discordance with absolute values may lead to misinterpretation of CBC data. Current Interpretive Data was last revised on 2017. Lymphocyte pct 7.1 % [facility] Comment: Interpretive Data Percent cell count reference ranges are not reported, since discordance with absolute values may lead to misinterpretation of CBC data. Current Interpretive Data was last revised on 2017. Monocyte pct 4.0 % [facility] Comment: Interpretive Data Percent cell count reference ranges are not reported, since discordance with absolute values may lead to misinterpretation of CBC data. Current Interpretive Data was last revised on 2017. Eosinophil pct 0.8 % [facility] Comment: Interpretive Data Percent cell count reference ranges are not reported, since discordance with absolute values may lead to misinterpretation of CBC data. Current Interpretive Data was last revised on 2017. Metamyelocyte pct 0.8(H) 0.0 - 0.0 % [facility] Myelocyte pct 1.6(H) 0.0 - 0.0 % [facility] Blood 10/18/2024 10:3 1 PM CDT 10/18/2024 10:47 PM CDT us [place] DUMONT LAB BLOOD ORDERABLE S Final Result [facility] [place] [address] * (ABNORMAL) Phosphorus (10/18/2024 10:31 PM CDT) Phosphorus, pl 2.2(L) 2.3 - 4.5 mg/dL Blood 10/18/2024 10:3 1 PM CDT 10/18/2024 10:43 PM CDT [place] DUMONT LAB BLOOD ORDERABLE S Final Result [facility] [place] [address] * (ABNORMAL) Basic metabolic panel (10/18/2024 10:31 PM CDT) [facility] Sodium 135 135 - 145 mmol/L Potassium, pl 3.5 3.3 - 4.9 mmol/L [facility] Chloride 102 97 - 110 mmol/L [facility] CO2 25 22 - 32 mmol/L [facility] Anion gap 8 2 - 15 mmol/L [facility] BUN 11 6 - 25 mg/dL [facility] Creatinine 0.44(L) 0.60 - 1.10 mg/dL [facility] Glucose 140 70 - 199 mg/dL [facility] Comment: Interpretive Data Fasting glucose >/= 126 mg/dl is diagnostic for diabetes. Fasting is defined as no caloric intake for at least 8 hours. Fasting glucose between 100 mg/dl to 125 mg/dl is diagnostic of prediabetes. In a patient with classic symptoms of hyperglycemia or hyperglycemic crisis, a random glucose >/= 200 mg/dl is diagnostic for diabetes. In the absence of unequivocal hyperglycemia, results should be confirmed by repeat testing. The classification and Diagnosis of Diabetes Diabetes Care 2021; 46: S19-S40. Current interpretive data was last revised 2022. Calcium 7.4(L) 8.5 - 10.3 mg/dL [facility] Blood 10/18/2024 10:3 1 PM CDT 10/18/2024 10:43 PM CDT [place] DUMONT LAB BLOOD ORDERABLE S Final Result [facility] [place] [address] * XR Chest 1 View (10/18/2024 9:59 AM CDT) Anatomical Region Laterality Modality Body, Chest N/A Digital Radiogra phy 10/18/2024 11:4 3 AM CDT Impressions 10/18/2024 11:43 AM CDT Comparison is made to 10/13/2024. The patient status post spinal fusion. Endotracheal tube is obscured by the fusion hardware however is likely in the mid trachea. There is an overlying drainage catheter. There are unchanged patchy airspace opacities seen within the mid lower lungs which could represent a combination of atelectasis and/or aspiration. No pneumothorax. Possible trace left effusions. Stable heart size. Electronically signed by: Omid Anderson M.D. Narrative 10/18/2024 11:43 AM CDT EXAMINATION: 1 view chest radiograph Procedure Note Omid Anderson MD - 10/18/2024 EXAMINATION: 1 view chest radiograph IMPRESSION: Comparison is made to 10/13/2024. The patient status post spinal fusion. Endotracheal tube is obscured by the fusion hardware however is likely in the mid trachea. There is an overlying drainage catheter. There are unchanged patchy airspace opacities seen within the mid lower lungs which could represent a combination of atelectasis and/or aspiration. No pneumothorax. Possible trace left effusions. Stable heart size. Electronically signed by: Omid Anderson M.D. Adarsh Oconnor NP IMG XR PROCEDURES Final Result * eGFR (10/18/2024 2:13 AM CDT) eGFR >90 >=60 mL/min/1. 73 m2 Comment: Interpretive Data Reference Interval Normal >/= 90 mL/min/1.73m2 Mildly decreased* 60 - 89 mL/min/1.73m2 Mildly to moderately decreased 45 - 59 mL/min/1.73m2 Moderately to severely decreased 30 - 44 mL/min/1.73m2 Severely decreased 15 - 29 mL/min/1.73m2 Kidney Failure < 15 mL/min/1.73m2 *Relative to young adult level Estimated glomerular filtration rate is determined by the 2020 CKD-EPI equation recommended by the National Kidney Foundation (A Unifying Approach to GFR Estimation: Recommendations of the NKF-ASK Task Force on Reassessing the Inclusion of Race in Diagnosing Kidney Disease, JASN 202). The CKD-EPI equation should not be used for patients with unstable renal function and has not been validated in children and those over 70. Current interpretive data was last reviewed 2021. Blood 10/18/2024 2:13 AM CDT 10/18/2024 2:30 AM CDT us [place] DUMONT LAB BLOOD ORDERABLE S Final Result [facility] [place] [address] * (ABNORMAL) Differential, auto (10/18/2024 2:13 AM CDT) Neutrophil abs 7.7(H) 1.5 - 6.5 K/cumm Imm gran abs 0.8(H) 0.0 - 0.1 K/cumm [facility] Lymphocyte abs 0.8 0.8 - 3.3 K/cumm [facility] Monocyte abs 0.7 0.2 - 0.8 K/cumm [facility] Eosinophil abs 0.1 0.0 - 0.5 K/cumm [facility] Basophil abs 0.1 0.0 - 0.1 K/cumm [facility] Neutrophil pct 75.4 % [facility] Comment: Confirmed by smear review Interpretive Data Percent cell count reference ranges are not reported, since discordance with absolute values may lead to misinterpretation of CBC data. Current Interpretive Data was last revised on 2017. Imm gran pct 8.2 % [facility] Comment: Interpretive Data Percent cell count reference ranges are not reported, since discordance with absolute values may lead to misinterpretation of CBC data. Current Interpretive Data was last revised on 2017. Lymphocyte pct 7.7 % [facility] Comment: Interpretive Data Percent cell count reference ranges are not reported, since discordance with absolute values may lead to misinterpretation of CBC data. Current Interpretive Data was last revised on 2017. Monocyte pct 7.1 % [facility] Comment: Interpretive Data Percent cell count reference ranges are not reported, since discordance with absolute values may lead to misinterpretation of CBC data. Current Interpretive Data was last revised on 2017. Eosinophil pct 0.5 % [facility] Comment: Interpretive Data Percent cell count reference ranges are not reported, since discordance with absolute values may lead to misinterpretation of CBC data. Current Interpretive Data was last revised on 2017. Basophil pct 1.1 % [facility] Comment: Interpretive Data Percent cell count reference ranges are not reported, since discordance with absolute values may lead to misinterpretation of CBC data. Current Interpretive Data was last revised on 2017. Blood 10/18/2024 2:13 AM CDT 10/18/2024 2:30 AM CDT us [place] DUM[place] LAB BLOOD ORDERABLE S Final Result [facility] [place] [address] * (ABNORMAL) CBC with auto differential (10/18/2024 2:13 AM CDT) WBC 10.3(H) 3.8 - 9.9 K/cumm Hgb 9.6(L) 11.9 - 15.5 g/dL [facility] Hct 28.2(L) 35.6 - 45.5 % [facility] Plt 347 150 - 400 K/cumm [facility] MPV 9.7 9.1 - 12.3 fL [facility] RBC 3.31(L) 3.90 - 5.20 M/cumm [facility] MCV 85.2 81.3 - 96.4 fL [facility] MCH 29.0 27.1 - 33.3 pg [facility] MCHC 34.0 32.3 - 35.7 g/dL [facility] RDW CV 16.1(H) 11.1 - 14.9 % [facility] RDW SD 50.2(H) 35.7 - 48.1 fL [facility] NRBC abs 0.03(H) 0.00 - 0.01 K/cumm [facility] Blood 10/18/2024 2:13 AM CDT 10/18/2024 2:30 AM CDT [place] DUM[place] LAB BLOOD ORDERABLE S Final Result Performing Organization Address [facility] Co de Phone Number [facility] Department [place] [address] * Type and screen (10/18/2024 2:13 AM CDT) ABO Rh A Positive [place], indirect Negative [facility] Blood 10/18/2024 2:13 AM CDT 10/18/2024 2:31 AM CDT Narrative [facility] - 10/18/2024 3:32 AM CDT Has the patient had Daratumumab or Isatuximab in the past 6 months?->Unknown [place] DUM[place] LAB BLOOD BANK TEST ORDERABLES Final Result Performing Organization Address [facility] de Phone Number [facility] Department [place] [address] * Phosphorus (10/18/2024 2:13 AM CDT) Phosphorus, pl 2.3 2.3 - 4.5 mg/dL Blood 10/18/2024 2:13 AM CDT 10/18/2024 2:30 AM CDT [place] DUM[place] LAB BLOOD ORDERABLE S Final Result Performing Organization Address City/[facility] Co de Phone Number [facility] [place] [address] * (ABNORMAL) Basic metabolic panel (10/18/2024 2:13 AM CDT) Sodium 135 135 - 145 mmol/L Potassium, pl 3.8 3.3 - 4.9 mmol/L [facility] Chloride 100 97 - 110 mmol/L [facility] CO2 24 22 - 32 mmol/L [facility] Anion gap 11 2 - 15 mmol/L [facility] BUN 11 6 - 25 mg/dL [facility] Creatinine 0.49(L) 0.60 - 1.10 mg/dL [facility] Glucose 112 70 - 199 mg/dL [facility] Comment: Interpretive Data Fasting glucose >/= 126 mg/dl is diagnostic for diabetes. Fasting is defined as no caloric intake for at least 8 hours. Fasting glucose between 100 mg/dl to 125 mg/dl is diagnostic of prediabetes. In a patient with classic symptoms of hyperglycemia or hyperglycemic crisis, a random glucose >/= 200 mg/dl is diagnostic for diabetes. In the absence of unequivocal hyperglycemia, results should be confirmed by repeat testing. The classification and Diagnosis of Diabetes Diabetes Care 202; 46: S19-S40. Current interpretive data was last revised 2022. Calcium 7.5(L) 8.5 - 10.3 mg/dL [facility] Blood 10/18/2024 2:13 AM CDT 10/18/2024 2:30 AM CDT [place] DUM[place] LAB BLOOD ORDERABLE S Final Result [facility] Department [place] [address] * POCT glucose (10/17/2024 11:17 AM CDT) Glucose, POC 109 70 - 199 mg/dL Blood 10/17/2024 11:1 7 AM CDT 10/17/2024 11:17 AM CDT Randell Corona MD LAB POCT ORDERABLES - DEVICE Final Result Performing Organization Address City/[facility]/ZIP Co de Phone Number [facility] [place] [address] * eGFR (10/17/2024 5:29 AM CDT) eGFR >90 >=60 mL/min/1. 73 m2 Comment: Interpretive Data Reference Interval Normal >/= 90 mL/min/1.73m2 Mildly decreased* 60 - 89 mL/min/1.73m2 Mildly to moderately decreased 45 - 59 mL/min/1.73m2 Moderately to severely decreased 30 - 44 mL/min/1.73m2 Severely decreased 15 - 29 mL/min/1.73m2 Kidney Failure < 15 mL/min/1.73m2 *Relative to young adult level Estimated glomerular filtration rate is determined by the 2020 CKD-EPI equation recommended by the National Kidney Foundation (A Unifying Approach to GFR Estimation: Recommendations of the NKF-ASK Task Force on Reassessing the Inclusion of Race in Diagnosing Kidney Disease, JASN 2020). The CKD-EPI equation should not be used for patients with unstable renal function and has not been validated in children and those over 70. Current interpretive data was last reviewed 2021. Blood 10/17/2024 5:29 AM CDT 10/17/2024 5:46 AM CDT us [place] DUM[place] LAB BLOOD ORDERABLE S Final Result Performing Organization Address City/[facility]/ZIP Co de Phone Number [facility] [place] [address] * (ABNORMAL) Differential, auto (10/17/2024 5:29 AM CDT) Neutrophil abs 8.2(H) 1.5 - 6.5 K/cumm Imm gran abs 0.5(H) 0.0 - 0.1 K/cumm [facility] Lymphocyte abs 0.6(L) 0.8 - 3.3 K/cumm [facility] Monocyte abs 0.6 0.2 - 0.8 K/cumm [facility] Eosinophil abs 0.1 0.0 - 0.5 K/cumm [facility] Basophil abs 0.1 0.0 - 0.1 K/cumm [facility] Neutrophil pct 81.3 % [facility] Comment: Confirmed by smear review Interpretive Data Percent cell count reference ranges are not reported, since discordance with absolute values may lead to misinterpretation of CBC data. Current Interpretive Data was last revised on 2017. Imm gran pct 4.5 % [facility] Comment: Interpretive Data Percent cell count reference ranges are not reported, since discordance with absolute values may lead to misinterpretation of CBC data. Current Interpretive Data was last revised on 2017. Lymphocyte pct 6.4 % [facility] Comment: Interpretive Data Percent cell count reference ranges are not reported, since discordance with absolute values may lead to misinterpretation of CBC data. Current Interpretive Data was last revised on 2017. Monocyte pct 6.4 % [facility] Comment: Interpretive Data Percent cell count reference ranges are not reported, since discordance with absolute values may lead to misinterpretation of CBC data. Current Interpretive Data was last revised on 2017. Eosinophil pct 0.7 % [facility] Comment: Interpretive Data Percent cell count reference ranges are not reported, since discordance with absolute values may lead to misinterpretation of CBC data. Current Interpretive Data was last revised on 2017. Basophil pct 0.7 % [facility] Comment: Interpretive Data Percent cell count reference ranges are not reported, since discordance with absolute values may lead to misinterpretation of CBC data. Current Interpretive Data was last revised on 2017. Blood 10/17/2024 5:29 AM CDT 10/17/2024 5:45 AM CDT us [place] DUM[place] LAB BLOOD ORDERABLE S Final Result [facility] [place] [address] * (ABNORMAL) CBC with auto differential (10/17/2024 5:29 AM CDT) Pathologist [facility] WBC 10.1(H) 3.8 - 9.9 K/cumm Hgb 9.7(L) 11.9 - 15.5 g/dL [facility] Hct 29.3(L) 35.6 - 45.5 % [facility] Plt 350 150 - 400 K/cumm [facility] MPV 9.8 9.1 - 12.3 fL [facility] RBC 3.43(L) 3.90 - 5.20 M/cumm [facility] MCV 85.4 81.3 - 96.4 fL [facility] MCH 28.3 27.1 - 33.3 pg [facility] MCHC 33.1 32.3 - 35.7 g/dL [facility] RDW CV 16.0(H) 11.1 - 14.9 % [facility] RDW SD 49.6(H) 35.7 - 48.1 fL [facility] NRBC abs 0.02(H) 0.00 - 0.01 K/cumm [facility] Blood 10/17/2024 5:29 AM CDT 10/17/2024 5:45 AM CDT [place] DUMONT LAB BLOOD ORDERABLE S Final Result Performing Organization Address [facility] Co de Phone Number [facility] [place] [address] * Phosphorus (10/17/2024 5:29 AM CDT) Pathologist [facility] Phosphorus, pl 2.6 2.3 - 4.5 mg/dL Blood 10/17/2024 5:29 AM CDT 10/17/2024 5:46 AM CDT [place] DUMONT LAB BLOOD ORDERABLE S Final Result [facility] Department [place] [address] * (ABNORMAL) Basic metabolic panel (10/17/2024 5:29 AM CDT) Pathologist [facility] Sodium 135 135 - 145 mmol/L Potassium, pl 3.7 3.3 - 4.9 mmol/L [facility] Chloride 99 97 - 110 mmol/L [facility] CO2 24 22 - 32 mmol/L [facility] Anion gap 12 2 - 15 mmol/L [facility] BUN 9 6 - 25 mg/dL [facility] Creatinine 0.44(L) 0.60 - 1.10 mg/dL [facility] Glucose 165 70 - 199 mg/dL [facility] Comment: Interpretive Data Fasting glucose >/= 126 mg/dl is diagnostic for diabetes. Fasting is defined as no caloric intake for at least 8 hours. Fasting glucose between 100 mg/dl to 125 mg/dl is diagnostic of prediabetes. In a patient with classic symptoms of hyperglycemia or hyperglycemic crisis, a random glucose >/= 200 mg/dl is diagnostic for diabetes. In the absence of unequivocal hyperglycemia, results should be confirmed by repeat testing. The classification and Diagnosis of Diabetes Diabetes Care 2021; 46: S19-S40. Current interpretive data was last revised 2022. Calcium 7.1(L) 8.5 - 10.3 mg/dL [facility] Blood 10/17/2024 5:29 AM CDT 10/17/2024 5:46 AM CDT us [place] DUM[place] LAB BLOOD ORDERABLE S Final Result [facility] [place] [address] * eGFR (10/16/2024 6:[address] LIGHT SERVICER) [facility] eGFR >90 >=60 mL/min/1. 73 m2 Comment: Interpretive Data Reference Interval Normal >/= 90 mL/min/1.73m2 Mildly decreased* 60 - 89 mL/min/1.73m2 Mildly to moderately decreased 45 - 59 mL/min/1.73m2 Moderately to severely decreased 30 - 44 mL/min/1.73m2 Severely decreased 15 - 29 mL/min/1.73m2 Kidney Failure < 15 mL/min/1.73m2 *Relative to young adult level Estimated glomerular filtration rate is determined by the 2020 CKD-EPI equation recommended by the National Kidney Foundation (A Unifying Approach to GFR Estimation: Recommendations of the NKF-ASK Task Force on Reassessing the Inclusion of Race in Diagnosing Kidney Disease, JASN 2020). The CKD-EPI equation should not be used for patients with unstable renal function and has not been validated in children and those over 70. Current interpretive data was last reviewed 2021. Blood 10/16/2024 6:[address] LIGHT SERVICER 10/16/2024 6:[address] LIGHT SERVICER Cinthya Means [employer] LAB BLOOD ORDERABLES Monie hester Result [facility] [place] [address] * (ABNORMAL) Basic metabolic panel (10/16/2024 6:[address] LIGHT SERVICER) Sodium 131(L) 135 - 145 mmol/L Potassium, pl 3.5 3.3 - 4.9 mmol/L [facility] Chloride 95(L) 97 - 110 mmol/L [facility] CO2 22 22 - 32 mmol/L [facility] Anion gap 14 2 - 15 mmol/L [facility] BUN 7 6 - 25 mg/dL [facility] Creatinine 0.35(L) 0.60 - 1.10 mg/dL [facility] Glucose 97 70 - 199 mg/dL [facility] Comment: Interpretive Data Fasting glucose >/= 126 mg/dl is diagnostic for diabetes. Fasting is defined as no caloric intake for at least 8 hours. Fasting glucose between 100 mg/dl to 125 mg/dl is diagnostic of prediabetes. In a patient with classic symptoms of hyperglycemia or hyperglycemic crisis, a random glucose >/= 200 mg/dl is diagnostic for diabetes. In the absence of unequivocal hyperglycemia, results should be confirmed by repeat testing. The classification and Diagnosis of Diabetes Diabetes Care 2021; 46: S19-S40. Current interpretive data was last revised 2022. Calcium 7.2(L) 8.5 - 10.3 mg/dL [facility] Blood 10/16/2024 6:[address] LIGHT SERVICER 10/16/2024 6:[address] LIGHT SERVICER us Cinthya Means NP LAB BLOOD ORDERABLES Monie l Result Performing Organization Address [facility]/ZIP Co de Phone Number [facility] [place] [employer] [place] [address] * eGFR (10/16/2024 12:[address] LIGHT SERVICER) eGFR >90 >=60 mL/min/1. 73 m2 Comment: Interpretive Data Reference Interval Normal >/= 90 mL/min/1.73m2 Mildly decreased* 60 - 89 mL/min/1.73m2 Mildly to moderately decreased 45 - 59 mL/min/1.73m2 Moderately to severely decreased 30 - 44 mL/min/1.73m2 Severely decreased 15 - 29 mL/min/1.73m2 Kidney Failure < 15 mL/min/1.73m2 *Relative to young adult level Estimated glomerular filtration rate is determined by the 2020 CKD-EPI equation recommended by the National Kidney Foundation (A Unifying Approach to GFR Estimation: Recommendations of the NKF-ASK Task Force on Reassessing the Inclusion of Race in Diagnosing Kidney Disease, JASN 2020). The CKD-EPI equation should not be used for patients with unstable renal function and has not been validated in children and those over 70. Current interpretive data was last reviewed 2021. Blood 10/16/2024 12:[address] LIGHT SERVICER 10/16/2024 1:[address] LIGHT SERVICER us Cinthya Means [employer] LAB BLOOD ORDERABLES Monie l Result Performing Organization Address City/[facility]/ZIP Co de Phone Number [facility] [place] [address] * eGFR (10/16/2024 12:[address] LIGHT SERVICER) [facility] eGFR >90 >=60 mL/min/1. 73 m2 Comment: Interpretive Data Reference Interval Normal >/= 90 mL/min/1.73m2 Mildly decreased* 60 - 89 mL/min/1.73m2 Mildly to moderately decreased 45 - 59 mL/min/1.73m2 Moderately to severely decreased 30 - 44 mL/min/1.73m2 Severely decreased 15 - 29 mL/min/1.73m2 Kidney Failure < 15 mL/min/1.73m2 *Relative to young adult level Estimated glomerular filtration rate is determined by the 2020 CKD-EPI equation recommended by the National Kidney Foundation (A Unifying Approach to GFR Estimation: Recommendations of the NKF-ASK Task Force on Reassessing the Inclusion of Race in Diagnosing Kidney Disease, JASN 2020). The CKD-EPI equation should not be used for patients with unstable renal function and has not been validated in children and those over 70. Current interpretive data was last reviewed 2021. Blood 10/16/2024 12:[address] LIGHT SERVICER 10/16/2024 1:[address] LIGHT SERVICER [place] DUMONT LAB BLOOD ORDERABLE S Final Result [facility] [place] [address] * (ABNORMAL) CBC with auto differential (10/16/2024 12:[address] LIGHT SERVICER) [facility] WBC 13.2(H) 3.8 - 9.9 K/cumm Hgb 9.8(L) 11.9 - 15.5 g/dL [facility] Hct 28.8(L) 35.6 - 45.5 % [facility] Plt 270 150 - 400 K/cumm [facility] MPV 9.9 9.1 - 12.3 fL [facility] RBC 3.40(L) 3.90 - 5.20 M/cumm [facility] MCV 84.7 81.3 - 96.4 fL [facility] MCH 28.8 27.1 - 33.3 pg [facility] MCHC 34.0 32.3 - 35.7 g/dL [facility] RDW CV 15.8(H) 11.1 - 14.9 % [facility] RDW SD 47.6 35.7 - 48.1 fL [facility] NRBC abs 0.03(H) 0.00 - 0.01 K/cumm [facility] Blood 10/16/2024 12:[address] LIGHT SERVICER 10/16/2024 1:[address] LIGHT SERVICER us [place] DUM[place] LAB BLOOD ORDERABLE S Final Result [facility] [place] [address] * (ABNORMAL) Manual Differential (10/16/2024 12:[address] LIGHT SERVICER) Differential Manual Cells Counted 131 [facility] Neutrophil abs 11.7(H) 1.5 - 6.5 K/cumm [facility] Imm gran abs 0.0 0.0 - 0.1 K/cumm [facility] Lymphocyte abs 0.8 0.8 - 3.3 K/cumm [facility] Monocyte abs 0.7 0.2 - 0.8 K/cumm [facility] Neutrophil pct 88.6 % [facility] Comment: Interpretive Data Percent cell count reference ranges are not reported, since discordance with absolute values may lead to misinterpretation of CBC data. Current Interpretive Data was last revised on 2017. Lymphocyte pct 6.1 % [facility] Comment: Interpretive Data Percent cell count reference ranges are not reported, since discordance with absolute values may lead to misinterpretation of CBC data. Current Interpretive Data was last revised on 2017. Monocyte pct 5.3 % [facility] Comment: Interpretive Data Percent cell count reference ranges are not reported, since discordance with absolute values may lead to misinterpretation of CBC data. Current Interpretive Data was last revised on 2017. Blood 10/16/2024 12:[address] LIGHT SERVICER 10/16/2024 1:[address] LIGHT SERVICER [place] Jeffery [place] LAB BLOOD ORDERABLE S Final Result Performing Organization Address City/[facility] de Phone Number [facility] [place] [address] * Phosphorus (10/16/2024 12:[address] LIGHT SERVICER) [facility] Phosphorus, pl 2.9 2.3 - 4.5 mg/dL Blood 10/16/2024 12:[address] LIGHT SERVICER 10/16/2024 1:[address] LIGHT SERVICER [place] Jeffery [place] LAB BLOOD ORDERABLE S Final Result Performing Organization Address [facility] de Phone Number [facility] [place] [address] * (ABNORMAL) Basic metabolic panel (10/16/2024 12:[address] LIGHT SERVICER) [facility] Sodium 130(L) 135 - 145 mmol/L Potassium, pl 3.4 3.3 - 4.9 mmol/L [facility] Chloride 95(L) 97 - 110 mmol/L [facility] CO2 22 22 - 32 mmol/L [facility] Anion gap 13 2 - 15 mmol/L [facility] BUN 7 6 - 25 mg/dL [facility] Creatinine 0.34(L) 0.60 - 1.10 mg/dL [facility] Glucose 100 70 - 199 mg/dL [facility] Comment: Interpretive Data Fasting glucose >/= 126 mg/dl is diagnostic for diabetes. Fasting is defined as no caloric intake for at least 8 hours. Fasting glucose between 100 mg/dl to 125 mg/dl is diagnostic of prediabetes. In a patient with classic symptoms of hyperglycemia or hyperglycemic crisis, a random glucose >/= 200 mg/dl is diagnostic for diabetes. In the absence of unequivocal hyperglycemia, results should be confirmed by repeat testing. The classification and Diagnosis of Diabetes Diabetes Care 2021; 46: S19-S40. Current interpretive data was last revised 2022. Calcium 7.4(L) 8.5 - 10.3 mg/dL [facility] [place] Blood 10/16/2024 12:[address] LIGHT SERVICER 10/16/2024 1:[address] LIGHT SERVICER [place] DUOMNT LAB BLOOD ORDERABLE S Final Result [facility] [place] [address] * (ABNORMAL) Basic metabolic panel (10/16/2024 12:[address] LIGHT SERVICER) Sodium 129(L) 135 - 145 mmol/L Potassium, pl 3.4 3.3 - 4.9 mmol/L [facility] Chloride 95(L) 97 - 110 mmol/L [facility] [facility] CO[facility] 22 22 - 32 mmol/L [facility] Anion gap 12 2 - 15 mmol/L [facility] BUN 7 6 - 25 mg/dL [facility] Creatinine 0.36(L) 0.60 - 1.10 mg/dL [facility] Glucose 104 70 - 199 mg/dL [facility] Comment: Interpretive Data Fasting glucose >/= 126 mg/dl is diagnostic for diabetes. Fasting is defined as no caloric intake for at least 8 hours. Fasting glucose between 100 mg/dl to 125 mg/dl is diagnostic of prediabetes. In a patient with classic symptoms of hyperglycemia or hyperglycemic crisis, a random glucose >/= 200 mg/dl is diagnostic for diabetes. In the absence of unequivocal hyperglycemia, results should be confirmed by repeat testing. The classification and Diagnosis of Diabetes Diabetes Care 2021; 46: S19-S40. Current interpretive data was last revised 2022. Calcium 7.2(L) 8.5 - 10.3 mg/dL [facility] Blood 10/16/2024 12:[address] LIGHT SERVICER 10/16/2024 1:[address] LIGHT SERVICER us Cinthya Means [employer] LAB BLOOD ORDERABLES Monie l [facility] [place] [address] * eGFR (10/15/2024 9:[address] LIGHT SERVICER) eGFR >90 >=60 mL/min/1. 73 m2 Comment: Interpretive Data Reference Interval Normal >/= 90 mL/min/1.73m2 Mildly decreased* 60 - 89 mL/min/1.73m2 Mildly to moderately decreased 45 - 59 mL/min/1.73m2 Moderately to severely decreased 30 - 44 mL/min/1.73m2 Severely decreased 15 - 29 mL/min/1.73m2 Kidney Failure < 15 mL/min/1.73m2 *Relative to young adult level Estimated glomerular filtration rate is determined by the 2020 CKD-EPI equation recommended by the National Kidney Foundation (A Unifying Approach to GFR Estimation: Recommendations of the NKF-ASK Task Force on Reassessing the Inclusion of Race in Diagnosing Kidney Disease, JASN 2020). The CKD-EPI equation should not be used for patients with unstable renal function and has not been validated in children and those over 70. Current interpretive data was last reviewed 2021. Blood 10/15/2024 9:[address] LIGHT SERVICER 10/15/2024 10:[address] LIGHT SERVICER Cinthya Means [employer] LAB BLOOD ORDERABLES Monie l Result Performing Organization Address City/[facility]/ZIP Co de Phone Number [facility] [place] [address] * (ABNORMAL) Differential, auto (10/15/2024 9:[address] LIGHT SERVICER) Neutrophil abs 14.9(H) 1.5 - 6.5 K/cumm Imm gran abs 0.2(H) 0.0 - 0.1 K/cumm [facility] Lymphocyte abs 0.6(L) 0.8 - 3.3 K/cumm [facility] Monocyte abs 0.7 0.2 - 0.8 K/cumm [facility] Eosinophil abs 0.1 0.0 - 0.5 K/cumm [facility] Basophil abs 0.1 0.0 - 0.1 K/cumm [facility] Neutrophil pct 90.3 % [facility] Comment: Confirmed by smear review Interpretive Data Percent cell count reference ranges are not reported, since discordance with absolute values may lead to misinterpretation of CBC data. Current Interpretive Data was last revised on 2017. Imm gran pct 1.0 % [facility] Comment: Interpretive Data Percent cell count reference ranges are not reported, since discordance with absolute values may lead to misinterpretation of CBC data. Current Interpretive Data was last revised on 2017. Lymphocyte pct 3.4 % [facility] Comment: Interpretive Data Percent cell count reference ranges are not reported, since discordance with absolute values may lead to misinterpretation of CBC data. Current Interpretive Data was last revised on 2017. Monocyte pct 4.3 % [facility] Comment: Interpretive Data Percent cell count reference ranges are not reported, since discordance with absolute values may lead to misinterpretation of CBC data. Current Interpretive Data was last revised on 2017. Eosinophil pct 0.4 % [facility] Comment: Interpretive Data Percent cell count reference ranges are not reported, since discordance with absolute values may lead to misinterpretation of CBC data. Current Interpretive Data was last revised on 2017. Basophil pct 0.6 % [facility] Comment: Interpretive Data Percent cell count reference ranges are not reported, since discordance with absolute values may lead to misinterpretation of CBC data. Current Interpretive Data was last revised on 2017. Blood 10/15/2024 9:[address] LIGHT SERVICER 10/15/2024 10:[address] LIGHT SERVICER us Cinthya Means NP LAB BLOOD ORDERABLES Monie hester Result [facility] [place] [address] * (ABNORMAL) CBC with auto differential (10/15/2024 9:[address] LIGHT SERVICER) [facility] WBC 16.5(H) 3.8 - 9.9 K/cumm Hgb 9.7(L) 11.9 - 15.5 g/dL [facility] Hct 28.7(L) 35.6 - 45.5 % [facility] Plt 261 150 - 400 K/cumm [facility] MPV 9.8 9.1 - 12.3 fL [facility] RBC 3.36(L) 3.90 - 5.20 M/cumm [facility] MCV 85.4 81.3 - 96.4 fL [facility] MCH 28.9 27.1 - 33.3 pg [facility] MCHC 33.8 32.3 - 35.7 g/dL [facility] RDW CV 15.4(H) 11.1 - 14.9 % [facility] RDW SD 47.3 35.7 - 48.1 fL [facility] NRBC abs 0.02(H) 0.00 - 0.01 K/cumm [facility] Blood 10/15/2024 9:[address] LIGHT SERVICER 10/15/2024 10:[address] LIGHT SERVICER Cinthya Means NP LAB BLOOD ORDERABLES Monie hester Result [facility] [place] [address] * (ABNORMAL) Basic metabolic panel (10/15/2024 9:[address] LIGHT SERVICER) [facility] Sodium 127(L) 135 - 145 mmol/L Potassium, pl 3.7 3.3 - 4.9 mmol/L [facility] Chloride 90(L) 97 - 110 mmol/L [facility] CO2 23 22 - 32 mmol/L [facility] Anion gap 14 2 - 15 mmol/L [facility] BUN 8 6 - 25 mg/dL [facility] Creatinine 0.39(L) 0.60 - 1.10 mg/dL [facility] Glucose 103 70 - 199 mg/dL [facility] Comment: Interpretive Data Fasting glucose >/= 126 mg/dl is diagnostic for diabetes. Fasting is defined as no caloric intake for at least 8 hours. Fasting glucose between 100 mg/dl to 125 mg/dl is diagnostic of prediabetes. In a patient with classic symptoms of hyperglycemia or hyperglycemic crisis, a random glucose >/= 200 mg/dl is diagnostic for diabetes. In the absence of unequivocal hyperglycemia, results should be confirmed by repeat testing. The classification and Diagnosis of Diabetes Diabetes Care 202; 46: S19-S40. Current interpretive data was last revised 2022. Calcium 7.3(L) 8.5 - 10.3 mg/dL [facility] Blood 10/15/2024 9:[address] LIGHT SERVICER 10/15/2024 10:[address] LIGHT SERVICER Cinthya Means NP LAB BLOOD ORDERABLES Monie l Result [facility] [place] [address] * eGFR (10/14/2024 8:[address] LIGHT SERVICER) eGFR >90 >=60 mL/min/1. 73 m2 Comment: Interpretive Data Reference Interval Normal >/= 90 mL/min/1.73m2 Mildly decreased* 60 - 89 mL/min/1.73m2 Mildly to moderately decreased 45 - 59 mL/min/1.73m2 Moderately to severely decreased 30 - 44 mL/min/1.73m2 Severely decreased 15 - 29 mL/min/1.73m2 Kidney Failure < 15 mL/min/1.73m2 *Relative to young adult level Estimated glomerular filtration rate is determined by the 2020 CKD-EPI equation recommended by the National Kidney Foundation (A Unifying Approach to GFR Estimation: Recommendations of the NKF-ASK Task Force on Reassessing the Inclusion of Race in Diagnosing Kidney Disease, JASN 2020). The CKD-EPI equation should not be used for patients with unstable renal function and has not been validated in children and those over 70. Current interpretive data was last reviewed 2021. Blood 10/14/2024 8:[address] LIGHT SERVICER 10/14/2024 8:[address] LIGHT SERVICER us [place] DUMONT LAB BLOOD ORDERABLE S Final Result [facility] [place] [address] * (ABNORMAL) Differential, auto (10/14/2024 8:[address] LIGHT SERVICER) Neutrophil abs 20.5(H) 1.5 - 6.5 K/cumm Imm gran abs 0.1 0.0 - 0.1 K/cumm [facility] Lymphocyte abs 0.6(L) 0.8 - 3.3 K/cumm [facility] Monocyte abs 0.9(H) 0.2 - 0.8 K/cumm [facility] Eosinophil abs 0.0 0.0 - 0.5 K/cumm [facility] Basophil abs 0.1 0.0 - 0.1 K/cumm [facility] Neutrophil pct 92.0 % [facility] Comment: Consistent with previous result Interpretive Data Percent cell count reference ranges are not reported, since discordance with absolute values may lead to misinterpretation of CBC data. Current Interpretive Data was last revised on 2017. Imm gran pct 0.6 % [facility] Comment: Interpretive Data Percent cell count reference ranges are not reported, since discordance with absolute values may lead to misinterpretation of CBC data. Current Interpretive Data was last revised on 2017. Lymphocyte pct 2.6 % [facility] Comment: Interpretive Data Percent cell count reference ranges are not reported, since discordance with absolute values may lead to misinterpretation of CBC data. Current Interpretive Data was last revised on 2017. Monocyte pct 4.0 % [facility] Comment: Interpretive Data Percent cell count reference ranges are not reported, since discordance with absolute values may lead to misinterpretation of CBC data. Current Interpretive Data was last revised on 2017. Eosinophil pct 0.2 % [facility] Comment: Interpretive Data Percent cell count reference ranges are not reported, since discordance with absolute values may lead to misinterpretation of CBC data. Current Interpretive Data was last revised on 2017. Basophil pct 0.6 % [facility] Comment: Interpretive Data Percent cell count reference ranges are not reported, since discordance with absolute values may lead to misinterpretation of CBC data. Current Interpretive Data was last revised on 2017. Blood 10/14/2024 8:[address] LIGHT SERVICER 10/14/2024 8:[address] LIGHT SERVICER [place] DUM[facility] LAB BLOOD ORDERABLE S Final Result [facility] [place] [address] * (ABNORMAL) CBC with auto differential (10/14/2024 8:[address] LIGHT SERVICER) WBC 22.2(H) 3.8 - 9.9 K/cumm Hgb 10.0(L) 11.9 - 15.5 g/dL [facility] Hct 29.7(L) 35.6 - 45.5 % [facility] Plt 275 150 - 400 K/cumm [facility] MPV 9.7 9.1 - 12.3 fL [facility] RBC 3.47(L) 3.90 - 5.20 M/cumm [facility] MCV 85.6 81.3 - 96.4 fL [facility] MCH 28.8 27.1 - 33.3 pg [facility] MCHC 33.7 32.3 - 35.7 g/dL [facility] RDW CV 15.5(H) 11.1 - 14.9 % [facility] RDW SD 47.9 35.7 - 48.1 fL [facility] NRBC abs 0.00 0.00 - 0.01 K/cumm [facility] Blood 10/14/2024 8:[address] LIGHT SERVICER 10/14/2024 8:[address] LIGHT SERVICER [place] DUM[facility] LAB BLOOD ORDERABLE S Final Result [facility] [place] [address] * Type and screen (10/14/2024 8:[address] LIGHT SERVICER) ABO Rh A Positive [place], indirect Negative [facility] Blood 10/14/2024 8:[address] LIGHT SERVICER 10/14/2024 9:[address] LIGHT SERVICER Narrative [facility] - 10/14/2024 10:[address] LIGHT SERVICER Has the patient had Daratumumab or Isatuximab in the past 6 months?->Unknown [place] DUM[facility] LAB BLOOD BANK TEST ORDERABLES Final Result Performing Organization Address [facility] Co de Phone Number [facility] Department [place] [address] * (ABNORMAL) Phosphorus (10/14/2024 8:[address] LIGHT SERVICER) Pathologist [facility] Phosphorus, pl 2.2(L) 2.3 - 4.5 mg/dL Blood 10/14/2024 8:[address] LIGHT SERVICER 10/14/2024 8:[address] LIGHT SERVICER [place] DUM[facility] LAB BLOOD ORDERABLE S Final Result Performing Organization Address [facility] Co de Phone Number [facility] Department [place] [address] * Magnesium (10/14/2024 8:[address] LIGHT SERVICER) Pathologist [facility] Magnesium 1.8 1.4 - 2.5 mg/dL Blood 10/14/2024 8:[address] LIGHT SERVICER 10/14/2024 8:[address] LIGHT SERVICER [place] DUMONT LAB BLOOD ORDERABLE S Final Result Performing Organization Address [facility] Co de Phone Number [facility] Department [place] [address] * (ABNORMAL) Basic metabolic panel (10/14/2024 8:[address] LIGHT SERVICER) Sodium 125(L) 135 - 145 mmol/L Potassium, pl 4.0 3.3 - 4.9 mmol/L [facility] Chloride 89(L) 97 - 110 mmol/L [facility] CO2 25 22 - 32 mmol/L [facility] Anion gap 11 2 - 15 mmol/L [facility] BUN 10 6 - 25 mg/dL [facility] Creatinine 0.47(L) 0.60 - 1.10 mg/dL [facility] Glucose 99 70 - 199 mg/dL [facility] Comment: Interpretive Data Fasting glucose >/= 126 mg/dl is diagnostic for diabetes. Fasting is defined as no caloric intake for at least 8 hours. Fasting glucose between 100 mg/dl to 125 mg/dl is diagnostic of prediabetes. In a patient with classic symptoms of hyperglycemia or hyperglycemic crisis, a random glucose >/= 200 mg/dl is diagnostic for diabetes. In the absence of unequivocal hyperglycemia, results should be confirmed by repeat testing. The classification and Diagnosis of Diabetes Diabetes Care 2021; 46: S19-S40. Current interpretive data was last revised 2022. Calcium 7.4(L) 8.5 - 10.3 mg/dL [facility] Blood 10/14/2024 8:[address] LIGHT SERVICER 10/14/2024 8:[address] LIGHT SERVICER us [place] DUM[place] LAB BLOOD ORDERABLE S Final Result [facility] [place] [address] * XR Abdomen Ap 1 Vw (10/14/2024 4:[address] LIGHT SERVICER) Anatomical Region Laterality Modality Body, Abdomen N/A Digital Radiogra phy 10/14/2024 4:[address] LIGHT SERVICER Impressions 10/14/2024 5:[address] LIGHT SERVICER Gaseous dilation of colon is seen in the upper abdomen with suggestion of thumbprinting which may be seen in the setting of colitis with superimposed ileus. Moderate gaseous distention of the stomach. Posterior fusion changes with bilateral iliac screws and partially evaluated drains. Left total hip arthroplasty. Dictated by: Mustapha Mclaughlin MD PHD The radiology attending physician has personally reviewed this study, and had reviewed and/or edited this written report and agrees with it. Electronically signed by: Fan López M.D., Ph.D Narrative 10/14/2024 5:[address] LIGHT SERVICER EXAMINATION: Abdomen, one view. HISTORY: Abdominal pain. COMPARISON: 10/06/2024 Procedure Note Fan López MD PhD - 10/14/2024 EXAMINATION: Abdomen, one view. HISTORY: Abdominal pain. COMPARISON: 10/06/2024 IMPRESSION: Gaseous dilation of colon is seen in the upper abdomen with suggestion of thumbprinting which may be seen in the setting of colitis with superimposed ileus. Moderate gaseous distention of the stomach. Posterior fusion changes with bilateral iliac screws and partially evaluated drains. Left total hip arthroplasty. Dictated by: Mustapha Mclaughlin MD PHD The radiology attending physician has personally reviewed this study, and had reviewed and/or edited this written report and agrees with it. Electronically signed by: Fan López M.D., Ph.D us Haley De Jesus NP IMG XR PROCEDURES Final R esult * (ABNORMAL) C. difficile testing Stool (10/14/2024 10:[address] LIGHT SERVICER) [facility] Result Positive Negative Toxin Result Positive Negative [facility] C. diff result Positive, free toxin(A) Negative, free toxin [facility] C. diff interp Toxigenic Clostridioides (Clostridium) difficile detected. Analysis was performed using a two-step methodology using glutamate dehydrogenase antigen detection followed by detection of C. difficile toxin(s). [facility] Stool 10/14/2024 10:[address] LIGHT SERVICER 10/14/2024 11:[address] LIGHT SERVICER Haley De Jesus NP LAB MICROBIOLOGY - GENERA L ORDERABLES Final Result [facility] [place] [address] * Infection Prevention VRE Culture Stool (10/14/2024 10:[address] LIGHT SERVICER) Report Final Report: Negative Stool 10/14/2024 10:[address] LIGHT SERVICER 10/14/2024 2:[address] LIGHT SERVICER Narrative [facility] - 10/16/2024 5:[address] LIGHT SERVICER Surveillance culture for Infection Prevention purposes only; results indicate colonization, not infection requiring treatment. Testing performed by [facility] Microbiology Laboratory ([phone]). Randell Corona MD LAB MICROBIOLOGY - G ENERAL ORDERABLES Final Result Performing Organization Address [facility] Co de Phone Number [facility] [place] [address] * (ABNORMAL) Urine culture Urine, indwelling catheter (10/14/2024 9:[address] LIGHT SERVICER) Report Final Report: Greater than or equal to 100,000 colonies/mL of Klebsiella pneumoniae Greater than or equal to 100,000 colonies/mL of Morganella morganii (.) Organism KLEBSIELLA PNEUMONIAE [facility] Organism MORGANELLA MORGANII [facility] Urine, indwelling catheter 10/14/2024 9:[address] LIGHT SERVICER 10/14/2024 9:[address] LIGHT SERVICER Narrative [facility] - 10/16/2024 2:[address] LIGHT SERVICER Indications for Culture:->Other (specify) Other Indication:->Elevated WBC Testing performed by [facility] Microbiology Laboratory ([phone]) Organism Antibiotic Method Susceptibility Klebsiella pneumoniae Ampicillin INTERPRETATION Resistant Klebsiella pneumoniae Cefazolin INTERPRETATION Susceptible Klebsiella pneumoniae Nitrofurantoin INTERPRETATION Susceptible Klebsiella pneumoniae Gentamicin INTERPRETATION Susceptible Klebsiella pneumoniae Trimethoprim with Sulfamethoxazole INTERPRETATION Susceptible Klebsiella pneumoniae Meropenem INTERPRETATION Susceptible Klebsiella pneumoniae Cefepime INTERPRETATION Susceptible Klebsiella pneumoniae Ciprofloxacin INTERPRETATION Susceptible Klebsiella pneumoniae Ceftazidime INTERPRETATION Susceptible Klebsiella pneumoniae Ceftriaxone INTERPRETATION Susceptible Klebsiella pneumoniae Piperacillin/Tazobactam INTERPRE TATION Susceptible Klebsiella pneumoniae Cephalexin INTERPRETATION Susceptible Klebsiella pneumoniae Cefuroxime-axetil INTERPRETATION Susceptible Klebsiella pneumoniae Cefdinir INTERPRETATION Susceptible Morganella morganii Ampicillin INTERPRETATION Resistant Morganella morganii Cefazolin INTERPRETATION Resistant Morganella morganii Nitrofurantoin INTERPRETATION Resistant Morganella morganii Gentamicin INTERPRETATION Susceptible Morganella morganii Trimethoprim with Sulfamethoxazole INTERPRETATION Susceptible Morganella morganii Meropenem INTERPRETATION Susceptible Morganella morganii Cefepime INTERPRETATION Susceptible Morganella morganii Ciprofloxacin INTERPRETATION Susceptible Morganella morganii Ceftazidime INTERPRETATION Susceptible Morganella morganii Ceftriaxone INTERPRETATION Susceptible Morganella morganii Piperacillin/Tazobactam INTERPRETA TION Susceptible Haley De Jesus NP LAB MICROBIOLOGY - GENERA L ORDERABLES Final Result Performing Organization Address [facility] de Phone Number [facility] [place] [address] * Infection Prevention Chastity auris PCR, surveillance Axilla/Groin (10/14/2024 9:[address] LIGHT SERVICER) Chastity auris DNA Not Detected Not Detected [facility] Comment: Interpretive Data Testing performed by [facility] Molecular Infectious Disease Laboratory using the Elaine nolan [id number] Chastity auris assay. This assay detects DNA from Chastity auris using Real-Time PCR. This assay is laboratory developed and is not cleared by the [place] Food and Drug Administration. The performance characteristics have been verified by the [facility] Molecular Infectious Disease Laboratory. Axilla/Groin 10/14/2024 9:[address] LIGHT SERVICER 10/14/2024 9:[address] LIGHT SERVICER Crow Valadez MD LAB MICROBIOLOGY - GENERAL ORDER SCOT Final Result Performing Organization Address City/[facility]/ZIP Co de Phone Number [facility] [place] [address] [facility] * Blood culture Blood (10/14/2024 8:[address] LIGHT SERVICER) Report Final Report: No growth Blood 10/14/2024 8:[address] LIGHT SERVICER 10/14/2024 9:[address] LIGHT SERVICER Narrative [facility] - 10/18/2024 12:00 PM CDT Collection->Peripheral 1. Blood cultures are incubated for 4 days on a continuously monitored blood culture system. The first report of a negative culture is issued within 24 hours of receipt of the specimen in the laboratory. 2. Positive culture results are reported as soon as they are detected. 3. The most important factor for detection of microbes in the setting of bloodstream infection is the volume of blood submitted for culture. Failure to collect an optimal blood volume can result in false negative blood cultures. 4. For pediatric patients, the recommended blood volume to collect follows a weight based strategy. See the electronic test catalog for collection instructions. 5. For positive blood cultures, a rapid molecular test may be performed for organism identification using the nolan [employer]lex blood culture identification panel for gram positive (BCID-GP) and gram negative (BCID-GN) organisms. This nucleic acid amplification test detects microbial DNA in positive blood culture broth. This assay has been cleared by the [place] Food and Drug Administration and its performance characteristics have been verified by the [facility] Microbiology Laboratory. For questions about this culture, contact the Microbiology Laboratory at [phone]. Interpretive data was last revised on 24. Haley De Jesus NP LAB MICROBIOLOGY - GENERA L ORDERABLES Final Result [facility] [place] [address] * eGFR (10/14/2024 12:[address] LIGHT SERVICER) eGFR >90 >=60 mL/min/1. 73 m2 Comment: Interpretive Data Reference Interval Normal >/= 90 mL/min/1.73m2 Mildly decreased* 60 - 89 mL/min/1.73m2 Mildly to moderately decreased 45 - 59 mL/min/1.73m2 Moderately to severely decreased 30 - 44 mL/min/1.73m2 Severely decreased 15 - 29 mL/min/1.73m2 Kidney Failure < 15 mL/min/1.73m2 *Relative to young adult level Estimated glomerular filtration rate is determined by the 2020 CKD-EPI equation recommended by the National Kidney Foundation (A Unifying Approach to GFR Estimation: Recommendations of the NKF-ASK Task Force on Reassessing the Inclusion of Race in Diagnosing Kidney Disease, JASN 202). The CKD-EPI equation should not be used for patients with unstable renal function and has not been validated in children and those over 70. Current interpretive data was last reviewed 2021. Blood 10/14/2024 12:[address] LIGHT SERVICER 10/14/2024 1:[address] LIGHT SERVICER us [place] [facility] LAB BLOOD ORDERABLE S Final Result [facility] [place] [address] * (ABNORMAL) CBC with auto differential (10/14/2024 12:[address] LIGHT SERVICER) WBC 20.7(H) 3.8 - 9.9 K/cumm Hgb 10.0(L) 11.9 - 15.5 g/dL [facility] Hct 29.5(L) 35.6 - 45.5 % [facility] Plt 227 150 - 400 K/cumm [facility] MPV 10.2 9.1 - 12.3 fL [facility] RBC 3.43(L) 3.90 - 5.20 M/cumm [facility] MCV 86.0 81.3 - 96.4 fL [facility] MCH 29.2 27.1 - 33.3 pg [facility] MCHC 33.9 32.3 - 35.7 g/dL [facility] RDW CV 15.3(H) 11.1 - 14.9 % [facility] RDW SD 48.1 35.7 - 48.1 fL [facility] NRBC abs 0.00 0.00 - 0.01 K/cumm [facility] Blood 10/14/2024 12:[address] LIGHT SERVICER 10/14/2024 1:[address] LIGHT SERVICER [place] [facility] LAB BLOOD ORDERABLE S Final Result [facility] [place] [address] * (ABNORMAL) Manual Differential (10/14/2024 12:[address] LIGHT SERVICER) Differential Manual Cells Counted 130 [facility] Neutrophil abs 17.2(H) 1.5 - 6.5 K/cumm [facility] Imm gran abs 1.9(H) 0.0 - 0.1 K/cumm [facility] Lymphocyte abs 0.8 0.8 - 3.3 K/cumm [facility] Monocyte abs 0.8 0.2 - 0.8 K/cumm [facility] Neutrophil pct 83.1 % [facility] Comment: Interpretive Data Percent cell count reference ranges are not reported, since discordance with absolute values may lead to misinterpretation of CBC data. Current Interpretive Data was last revised on 2017. Lymphocyte pct 3.8 % [facility] Comment: Interpretive Data Percent cell count reference ranges are not reported, since discordance with absolute values may lead to misinterpretation of CBC data. Current Interpretive Data was last revised on 2017. Monocyte pct 3.8 % [facility] Comment: Interpretive Data Percent cell count reference ranges are not reported, since discordance with absolute values may lead to misinterpretation of CBC data. Current Interpretive Data was last revised on 2017. Metamyelocyte pct 8.5(H) 0.0 - 0.0 % [facility] Promyelocyte pct 0.8(H) 0.0 - 0.0 % [facility] Blood 10/14/2024 12:[address] LIGHT SERVICER 10/14/2024 1:[address] LIGHT SERVICER [place] [facility] LAB BLOOD ORDERABLE S Final Result [facility] [place] [address] * (ABNORMAL) Phosphorus (10/14/2024 12:[address] LIGHT SERVICER) [facility] Phosphorus, pl 2.0(L) 2.3 - 4.5 mg/dL Blood 10/14/2024 12:[address] LIGHT SERVICER 10/14/2024 1:[address] LIGHT SERVICER [place] [facility] LAB BLOOD ORDERABLE S Final Result Performing Organization Address [facility] Co de Phone Number [facility] Department [place] [address] * Magnesium (10/14/2024 12:[address] LIGHT SERVICER) [facility] Magnesium 1.8 1.4 - 2.5 mg/dL Blood 10/14/2024 12:[address] LIGHT SERVICER 10/14/2024 1:[address] LIGHT SERVICER [place] [facility] LAB BLOOD ORDERABLE S Final Result Performing Organization Address [facility] de Phone Number [facility] [place] [address] * (ABNORMAL) Basic metabolic panel (10/14/2024 12:[address] LIGHT SERVICER) [facility] Sodium 127(L) 135 - 145 mmol/L Potassium, pl 3.5 3.3 - 4.9 mmol/L [facility] Chloride 85(L) 97 - 110 mmol/L [facility] CO2 24 22 - 32 mmol/L [facility] Anion gap 18(H) 2 - 15 mmol/L [facility] BUN 12 6 - 25 mg/dL [facility] Creatinine 0.43(L) 0.60 - 1.10 mg/dL [facility] Glucose 81 70 - 199 mg/dL [facility] Comment: Interpretive Data Fasting glucose >/= 126 mg/dl is diagnostic for diabetes. Fasting is defined as no caloric intake for at least 8 hours. Fasting glucose between 100 mg/dl to 125 mg/dl is diagnostic of prediabetes. In a patient with classic symptoms of hyperglycemia or hyperglycemic crisis, a random glucose >/= 200 mg/dl is diagnostic for diabetes. In the absence of unequivocal hyperglycemia, results should be confirmed by repeat testing. The classification and Diagnosis of Diabetes Diabetes Care 202; 46: S19-S40. Current interpretive data was last revised 2022. Calcium 7.2(L) 8.5 - 10.3 mg/dL [facility] Blood 10/14/2024 12:[address] LIGHT SERVICER 10/14/2024 1:[address] LIGHT SERVICER us [place] [facility] LAB BLOOD ORDERABLE S Final Result [facility] [place] [address] * (ABNORMAL) Pro B-type natriuretic peptide (10/13/2024 4:[address] LIGHT SERVICER) NT-proBNP 4,717(H) <=450 pg/mL Comment: Interpretive Comments: A. Dyspnea in Acute Care Setting All Ages: < 300 pg/ml, acute heart failure unlikely. < 50 yrs: 300 - 450 pg/ml, further investigation warranted. > 450 pg/ml, acute heart failure likely. 50 - 74 yrs: 300 - 900 pg/ml, further investigation warranted. > 900 pg/ml, acute heart failure likely . > or = 75 yrs: 450 - 1800 pg/ml, further investigation warranted. > 1800 pg/ml, acute heart failure likely. B. Non-acute Setting < 75 yrs < 125 pg/ml, rules out heart failure. > or = 125 pg/ml, further investigation warranted. > or = 75 yrs < 450 pg/ml, rules out heart failure. > or = 450 pg/ml, further investigation warranted. - Knowledge of each individual patient's NT-proBNP range may be more useful than using similar cut-points for every patient. Please note that marked elevations in NT-proBNP levels may be observed in state other than Left Ventricular Congestive Failure, including: acute coronary syndromes, right heart strain/failure (including pulmonary embolism and cor pulmonale), critical illness, renal failure, as well as advanced age. - References: 1. Tami VU et.al. Eur Heart J. 2006:27:330-337. 2. Denise CIFUENTES, Kacie LOPEZ. J. AM Emani Cardiol: Cardiovasc Imag. 2009;2: 216- 225. Interpretive Data Last Revised Date: 2018. Blood 10/13/2024 4:[address] LIGHT SERVICER 10/13/2024 5:[address] LIGHT SERVICER Arlet Peters [employer] [employer] [facility] LAB BLOOD ORDERABLES Fi nal Result Performing Organization Address [facility] de Phone Number [facility] [place] [address] * Sodium, urine, random (10/13/2024 4:[address] LIGHT SERVICER) Sodium, ur <20 mmol/L Comment: Interpretive Data No reference range established. Current interpretive data was last revised 2018. Urine 10/13/2024 4:[address] LIGHT SERVICER 10/13/2024 5:[address] LIGHT SERVICER Arlet Peters [employer] [employer] [facility] LAB URINE ORDERABLES Fi nal Result Performing Organization Address [facility] de Phone Number [facility] [place] [employer] [place] [address] * Osmolality, urine (10/13/2024 4:[address] LIGHT SERVICER) Osmo, ur 567 mOsm/kg Urine 10/13/2024 4:[address] LIGHT SERVICER 10/13/2024 5:[address] LIGHT SERVICER Arlet Reyesr [employer] [employer] [facility] LAB URINE ORDERABLES Fi nal Result Performing Organization Address [facility] de Phone Number [facility] [employer] [place] [address] * XR Chest 1 View (10/13/2024 3:[address] LIGHT SERVICER) Anatomical Region Laterality Modality Body, Chest N/A Computed Radiogr aphy 10/13/2024 4:[address] LIGHT SERVICER Impressions 10/13/2024 4:[address] LIGHT SERVICER The current study is compared with the prior radiograph dated 10/12/2024. Interval decrease in size of now tiny right pleural effusion. No pneumothorax. Patchy airspace opacities are unchanged and may represent atelectasis versus pneumonia. Gaseous distention of the stomach. Cervicothoracolumbar spinal fixation hardware. Dictated by: Kings Chavez M.D. The radiology attending physician has personally reviewed this study, and had reviewed and/or edited this written report and agrees with it. Electronically signed by: Araceli Khoury M.D. Narrative 10/13/2024 4:[address] LIGHT SERVICER EXAMINATION: CXR one view Procedure Note Araceli Khoury MD - 10/13/2024 EXAMINATION: CXR one view IMPRESSION: The current study is compared with the prior radiograph dated 10/12/2024. Interval decrease in size of now tiny right pleural effusion. No pneumothorax. Patchy airspace opacities are unchanged and may represent atelectasis versus pneumonia. Gaseous distention of the stomach. Cervicothoracolumbar spinal fixation hardware. Dictated by: Kings Chavez M.D. The radiology attending physician has personally reviewed this study, and had reviewed and/or edited this written report and agrees with it. Electronically signed by: Araceli Khoury M.D. us Willie Chavira MD IMG XR PROCEDURES Final Result * US Guided Thoracentesis Right (10/13/2024 2:[address] LIGHT SERVICER) Anatomical Region Laterality Modality Chest N/A Ultrasound 10/13/2024 3:[address] LIGHT SERVICER Impressions 10/13/2024 3:[address] LIGHT SERVICER 1. Successful ultrasound-guided diagnostic and therapeutic right thoracentesis. Dictated by: Willie Chavira M.D. The radiology attending physician has personally reviewed this study, and had reviewed and/or edited this written report and agrees with it. Electronically signed by: Beny Bedoya M.D. Narrative 10/13/2024 3:[address] LIGHT SERVICER EXAMINATION: DIAGNOSTIC AND THERAPEUTIC THORACENTESIS HISTORY: 79F with moderate right pleural effusion COMPARISON: Chest radiograph 10/12/2024 FINDINGS: Limited views of the posterior right chest show a moderate amount of pleural fluid. The right chest was marked appropriately with ultrasound guidance. TECHNIQUE: The procedure and its benefits and risks were explained to the patient. The potential risks included but were not limited to pneumothorax, bleeding, infection, and injury to adjacent organs. A site was localized for thoracentesis. The patient's overlying skin was prepped and draped in the usual sterile fashion. Local anesthesia was achieved via subcutaneous and deep administration with 13 mL of Lidocaine 1%. 5-Montserratian One Step needle was advanced into the pleural cavity. Appropriate needle location was documented with continuous sonographic guidance. 600 mL of serosanguinous fluid were obtained. The patient's skin was cleaned and dressed. The patient tolerated the procedure well and was discharged in stable condition. The ultrasound obtained immediately following the procedure and the post procedure chest radiograph showed no pneumothorax. Dr. Beny Bedoya M.D., the attending radiologist, was present from the beginning to the end of the procedure. Dr. Chavira performed the thoracentesis. Dr. Chavira (resident service coordinator) personally participated in sonographic imaging of this patient. Procedure Note Beny Bedoya MD - 10/13/2024 EXAMINATION: DIAGNOSTIC AND THERAPEUTIC THORACENTESIS HISTORY: 79F with moderate right pleural effusion COMPARISON: Chest radiograph 10/12/2024 FINDINGS: Limited views of the posterior right chest show a moderate amount of pleural fluid. The right chest was marked appropriately with ultrasound guidance. TECHNIQUE: The procedure and its benefits and risks were explained to the patient. The potential risks included but were not limited to pneumothorax, bleeding, infection, and injury to adjacent organs. A site was localized for thoracentesis. The patient's overlying skin was prepped and draped in the usual sterile fashion. Local anesthesia was achieved via subcutaneous and deep administration with 13 mL of Lidocaine 1%. 5-Montserratian One Step needle was advanced into the pleural cavity. Appropriate needle location was documented with continuous sonographic guidance. 600 mL of serosanguinous fluid were obtained. The patient's skin was cleaned and dressed. The patient tolerated the procedure well and was discharged in stable condition. The ultrasound obtained immediately following the procedure and the post procedure chest radiograph showed no pneumothorax. Dr. Beny Bedoya M.D., the attending radiologist, was present from the beginning to the end of the procedure. Dr. Chavira performed the thoracentesis. Dr. Chavira (resident service coordinator) personally participated in sonographic imaging of this patient. IMPRESSION: 1. Successful ultrasound-guided diagnostic and therapeutic right thoracentesis. Dictated by: Willie Chavira M.D. The radiology attending physician has personally reviewed this study, and had reviewed and/or edited this written report and agrees with it. Electronically signed by: Beny Bedoya M.D. Moises Orellana NP IMG US PROCEDURES Fi nal Result * Cell Differential, Body Fluid (10/13/2024 1:[address] LIGHT SERVICER) Total cells diffed 100 cells Comment: Interpretive Data Unless otherwise specified, the reference range and other method performance specifications have not been established for CSF/Body Fluid tests. The test results should be integrated into the clinical context for interpretation. Current interpretive data was last revised on 2019. Neutrophils, fld 44 % [facility] Lymphs, fld 40 % [facility] Monocyte, fld 3 % [facility] Macrophages, fld 5 % [facility] Mesothelial cells, fld 8 % [facility] Fluid 10/13/2024 1:[address] LIGHT SERVICER 10/13/2024 5:[address] LIGHT SERVICER Moises Orellana NP LAB BODY FLUIDS AND STOOLS ORDERABLES Final Result [facility] Department [place] [address] * (ABNORMAL) Cell count w/rflx diff, body fluid (10/13/2024 1:[address] LIGHT SERVICER) Specimen type, fld Pleural Body site, fld Pleural fluid, right [facility] Color, fld Red [facility] Clarity, fld Cloudy(A) Clear [facility] Nucleated cells, fld 212 /cumm [facility] Comment: Interpretive Data Unless otherwise specified, the reference range and other method performance specifications have not been established for CSF/Body Fluid tests. The test results should be integrated into the clinical context for interpretation. Current interpretive data was last revised on 2019. RBC, fld 46,663 /cumm [facility] Fluid 10/13/2024 1:[address] LIGHT SERVICER 10/13/2024 5:[address] LIGHT SERVICER Moises Orellana [employer] [facility] LAB BODY FLUIDS AND STOOLS ORDERABLES Final Result [facility] [place] [address] * Aerobic and anaerobic culture and gram stain Pleural fluid Lung (10/13/2024 1:[address] LIGHT SERVICER) Direct Specimen Exam Stain: Cytospin Gram stain shows: Moderate polymorphonuclear leukocytes seen. No organisms seen. Report Final Report: No growth [facility] Pleural fluid (Lung) 10/13/2024 1:[address] LIGHT SERVICER 10/13/2024 6:[address] LIGHT SERVICER Narrative [facility] - 10/19/2024 3:30 PM CDT Testing performed by [facility] ([phone]) Specimens submitted from normally sterile body sites will have all bacterial morphotypes identified. Specimens that contain grossly mixed mata and/or are from body sites that are not normally sterile will be examined for Staphylococcus aureus, Pseudomonas aeruginosa, beta-hemolytic strep, vancomycin-resistant Enterococcus, Bacteroides, Parabacteroides, Clostridium perfringens and fungus. If any of these are isolated, the organism will be reported. Current interpretive data was last revised on 2019. Moises Orellana NP LAB MICROBIOLOGY - G ENERAL ORDERABLES Final Result Performing Organization Address [facility] Co de Phone Number [facility] [place] [address] * Protein, body fluid (10/13/2024 1:[address] LIGHT SERVICER) Specimen type, fld Pleural Body site, fld Pleural fluid, right [facility] Protein, fld <2.0 g/dL [facility] Comment: Repeated and Verified The above specimen type is not cleared for use in this method by the FDA. Analytical characteristics have been validated by the performing laboratory. No reference range established - see interpretive comments. Interpretive Data Pleural and Pericardial Fluids - Ratio of fluid to serum protein > or = 0.5 is indicative of exudate and < 0.5 of transudate. Peritoneal - Protein > or = 3.0 g/dL is indicative of exudates and < 3.0 g/dL of transudates. Reference: Danuta Textbook of Clinical Chemistry and Molecular Diagnostics, Sixth Edition. Elsevier Press. 2018. Chapter 43, Body Fluids, p. 925 Current Interpretive Data was last revised 2019. Fluid 10/13/2024 1:[address] LIGHT SERVICER 10/13/2024 6:[address] LIGHT SERVICER Moises Orellana NP LAB BODY FLUIDS AND STOOLS ORDERABLES Final Result Performing Organization Address [facility] Co de Phone Number [facility] [place] [address] * Lactate dehydrogenase, body fluid (10/13/2024 1:[address] LIGHT SERVICER) Specimen type, fld Pleural Body site, fld Pleural fluid, right [facility] LD, fld 191 Units/L [facility] Comment: The above specimen type is not cleared for use in this method by the FDA. Analytical characteristics have been validated by the performing laboratory. No reference range established - see interpretive comments. Interpretive Data Ratio of fluid to serum LD > or = 0.6 is indicative of exudate and < 0.6 of transudate. References: The Biochemistry of Body Fluids. Association of Clinical Biochemists in [place]. May 2009; pp 1-36. Danuta Textbook of Clinical Chemistry and Molecular Diagnostics, Sixth Edition. Elsevier Press. 2018. Chapter 43, Body Fluids, p. 925 Current Interpretive Data was last revised 2019. Fluid 10/13/2024 1:[address] LIGHT SERVICER 10/13/2024 6:[address] LIGHT SERVICER Moises Orellana NP LAB BODY FLUIDS AND STOOLS ORDERABLES Final Result [facility] [place] [address] * Glucose, body fluid (10/13/2024 1:[address] LIGHT SERVICER) Specimen type, fld Pleural Body site, fld Pleural fluid, right [facility] Glucose, fld 104 mg/dL [facility] Comment: The above specimen type is not cleared for use in this method by the FDA. Analytical characteristics have been validated by the performing laboratory. No reference range established - see interpretive comments. Interpretive Data Pleural - Glucose < 60 mg/dL is indicative of complicated parapneumonic effusions. Peritoneal - normally equivalent to plasma glucose. Will be less than concurrent plasma value in peritoneal bacterial infections. Pericardial - Fluid to serum glucose ratio < 0.3 is indicative of bacterial infection. Pancreatic cyst fluid - glucose concentrations have been shown to be a useful aid for distinguishing mucinous from non-mucinous cysts. Low glucose concentrations in a pancreatic cyst fluid (< 40-50 mg/dL) is suggestive of a mucinous cyst. However, body fluid glucose concentrations may be decreased due to increased cellular metabolism and should be interpreted in the context of blood glucose concentrations and in conjunction with other laboratory and clinical findings. References: Danuta Textbook of Clinical Chemistry and Molecular Diagnostics, Sixth Edition. Elsevier Press. 2018. Chapter 43, Body Fluids, p. 925 Pleural effusions: Evaluation and Management. Arthur Clin J Med 2005;72:854-72. [employer] Test directory, Body Fluid Reference Intervals and/or Interpretative Information. [email or web address] Sean CURRIE et al. Pancreatic cyst fluid glucose: rapid, inexpensive, and accurate diagnosis of mucinous pancreatic cysts. Surgery 2018;163:600-5. Silvia REYEZ et al. Differential diagnosis of pancreatic cysts: A prospective study on the role of intra-cystic glucose concentration. Digestive Liver Dis 2020;52:1026-32. Current Interpretive Data was last revised 2021. Fluid 10/13/2024 1:[address] LIGHT SERVICER 10/13/2024 6:[address] LIGHT SERVICER Narrative [facility] - 10/13/2024 6:[address] LIGHT SERVICER Body Fluid Type->Pleural Moises Orellana NP LAB BODY FLUIDS AND STOOLS ORDERABLES Final Result Performing Organization Address [facility] Co de Phone Number [facility] [place] [address] * pH, Pleural Fluid (10/13/2024 1:[address] LIGHT SERVICER) Body site, fld Pleural fluid, right pH, fld See Comment [facility] Comment: Credited: Specimen too old Telephone report made to: Alta Enciso RN on 10/13/2024 20:47:[address] LIGHT SERVICER by mes . The above specimen type is not cleared for use in this method by the FDA. Analytical characteristics have been validated by the performing laboratory. No reference range established - see interpretive comments. Interpretive Data Pleural - pH is approximately 7.64. pH <7.2 is indicative of complicated parapneumonic effusions. References: Danuta Textbook of Clinical Chemistry and Molecular Diagnostics, Sixth Edition. Elsevier Press. 2018. Chapter 43, Body Fluids, p. 925 Pleural effusions: Evaluation and Management. Arthur Clin J Med 2005;72:854-72. Current Interpretive Data was last revised 2019. Fluid 10/13/2024 1:[address] LIGHT SERVICER 10/13/2024 8:[address] LIGHT SERVICER Moises Orellana NP LAB BODY FLU IDS AND STOOLS ORDERABLES Edited Result - Final Performing Organization Address [facility]/ZIP Co de Phone Number [facility] [place] [address] * TRANSTHORACIC ECHO (TTE) COMPLETE W DOPPLER/CF W CONTRAST (10/13/2024 10:[address] LIGHT SERVICER) Anatomical Region Laterality Modality Ultrasound 10/13/2024 9:[address] LIGHT SERVICER Narrative 10/13/2024 11:[address] LIGHT SERVICER [facility] [place] [address] Transthoracic Echocardiographic Report Patient Name: SEAN ESTRELLA A : 1945 (79y 9m) Gender: F Study Date: 10/13/2024 09:37:06 AM Ht(Inch): 65 Wt(Lb): 136.91 BSA: 1.69 Vocational Nurse Lvn: Candace Burton RDCS [facility] Location: [id number] Order Provider: MOISES ORELLANA Heart Rate: 76 BMI: 22.78 BP: 123 / 45 Quality: Technically difficult study due to limited acoustic windows. Ref Provider: MOISES ORELLANA PROCEDURES: Echocardiographic Report: ([id number]) Transthoracic complete echo with contrast, 2D, spectral and tissue Doppler, color flow Doppler, M-mode. Contrast: Contrast Enhancement was Employed: After initial imaging due to sub- optimal quality related to co-morbidity defined by patient's body habitus and used Perflutren contrast because 2 of 16 LV wall segments in any view not visualized, using the volume necessary to obtain adequate images. 0.8 ml Optison Administered, (2.2 ml wasted). INDICATIONS: Possible fluid overload, Congestive heart failure, and Dyspnea. FINDINGS: Left Ventricle: Normal left ventricular size based on volume index. Concentric LV remodeling. There is hyperdynamic left ventricular systolic function. The Ejection Fraction (Oliva's) is measured at 82 %. Right Ventricle: Right ventricular dilatation. Left Atrium: The left atrium is normal in size. Right Atrium: The right atrium is normal in size. Mitral Valve: Normal mitral valve leaflet structure. There is mild mitral valve regurgitation. Aortic Valve: The aortic cusps appear mildly thickened. Mild aortic valve stenosis. The mean transaortic gradient is 8.23 mmHg. The aortic valve area by the continuity equation (using VTI) is 1.51 cm2. Aortic valve dimensionless index 0.59. Tricuspid Valve: The tricuspid valve demonstrates normal leaflet structure. There is mild tricuspid regurgitation. The estimated right ventricular systolic pressure is 35-40 mmHg. Pulmonic Valve: The pulmonic valve demonstrates normal leaflet structure. No evidence of pulmonic regurgitation. Pericardium: No pericardial effusion. Aorta: The aortic root is normal in size. The aortic root is normal in size when indexed. The ascending aorta is normal in size when indexed. Incidental Findings: Right pleural effusion. CONCLUSIONS: 1. Reduced image resolution; Concentric LV remodeling. There is hyperdynamic left ventricular systolic function. The Ejection Fraction (Oliva's) is measured at 82 %. 2. Right ventricular dilatation. MEASUREMENTS: 2D/MM Value Range Doppler Value Range LVIDd 2D 3.86 cm [ 3.80 - 5.20 ] AV Peak Blake 1.80 m/s [ 1.00 - 1.70 ] LVIDs 2D 2.08 cm [ 2.20 - 3.50 ] AV Peak PG 12.96 IVSd 2D 0.93 cm [ 0.60 - 0.90 ] AV Mean PG 8.23 mmHg LVPWd 2D 0.92 cm [ 0.60 - 0.90 ] AV VTI 42.64 cm LV Thickness Ratio 1.01 LVOT Peak Blake 1.17 m/s [ 0.70 - 1.10 ] LV FS 2D 46.23 % [ 27.00 - 45.00 ] LVOT Peak PG 5.48 LV Mass 2D 109.48 g LVOT Mean PG 3.17 mmHg LV Mass Index 2D 64.78 g/m2 LVOT VTI 25.35 cm RWT 0.48 LVOT Diam 1.80 cm EDV Mod BP 51.94 ml [ 46.00 - 106.00 ] KANCHAN VTI 1.51 cm2 LV EDV Index 30.73 ml/m2 LVOT/AV VTI 0.59 - Dimensionless index (DVI) ESV Mod BP 9.62 ml [ 14.00 - 42.00 ] MV E Peak Blake 1.35 m/s [ 0.60 - 1.30 ] EF Mod BP 82 % [ 54 - 74 ] MV A Peak Blake 0.36 m/s [ 1.00 - 1.20 ] LA Length 4C 5.20 cm MV E/A 3.74 ratio [ 0.80 - 1.50 ] RV Base Dimen 2D 4.5 cm [ 2.5 - 4.2 ] MV Decel Time 216.68 msec [ 104.00 - 258.00 ] TAPSE 1.21 cm [ 1.71 - 5.00 ] Med E` Blake 5.02 cm/sec [ 8.00 - 15.00 ] RA Volume 34.75 ml Lat E` Blake 6.42 cm/sec [ 10.00 - 15.00 ] RA Volume Index 20.56 ml/m2 Average E/E` 23.60 AoR Diam 2D 2.79 cm [ 2.70 - 3.70 ] RV S` 10.01 cm/sec Ao Root Index 1.65 cm/m2 [ 1.00 - 2.00 ] TR Peak Blake 3.08 m/s [ 1.00 - 2.80 ] Asc Ao Diam 2D 2.35 cm TR Peak PG 37.9 Asc Ao Index 1.39 cm/m2 PV Peak Blake 0.69 m/s [ 0.40 - 0.80 ] PV Peak PG 1.90 - ATTESTATION: I have reviewed and interpreted the pertinent images and measurements of this study. I attest to the conclusions in the final report that is provided above. DISCLAIMER: The study images and the final report will be retained in the patient chart by the [facility] for the legally required time period. This chart constitutes the legal record of any testing performed. Electronically Signed By: Jose Almaraz MD 10/13/2024 11:11:[address] LIGHT SERVICER Electronically Signed By: Jose Almaraz MD 10/13/2024 11:11:[address] LIGHT SERVICER Procedure Note Jose Almaraz MD - 10/13/2024 [facility] [place] [address] Transthoracic Echocardiographic Report Patient Name: SEAN ESTRELLA A : 1945 (79y 9m) Gender: F Study Date: 10/13/2024 09:37:06 AM Ht(Inch): 65 Wt(Lb): 136.91 BSA: 1.69 Vocational Nurse Lvn: Candace Burton RD, [facility] Location: [id number] OrderProvider: MOISES ORELLANA Heart Rate: 76 BMI: 22.78 BP: 123 / 45 Quality: Technically difficultstudy due to limited acoustic windows. Ref Provider: MOISES ORELLANA PROCEDURES: Echocardiographic Report: ([id number]) Transthoracic complete echo withcontrast, 2D, spectral and tissue Doppler, color flow Doppler, M-mode. Contrast: Contrast Enhancement was Employed: After initial imaging due tosub- optimal quality related to co-morbidity defined by patient's body habitus and usedPerflutren contrast because 2 of 16 LV wall segments in any view not visualized,using the volume necessary to obtain adequate images. 0.8 ml Optison Administered, (2.2 mlwasted). INDICATIONS: Possible fluid overload, Congestive heart failure, and Dyspnea. FINDINGS: Left Ventricle: Normal left ventricular size based on volume index.Concentric LV remodeling. There is hyperdynamic left ventricular systolic function. TheEjection Fraction (Oliva's) is measured at 82 %. Right Ventricle: Right ventricular dilatation. Left Atrium: The left atrium is normal in size. Right Atrium: The right atrium is normal in size. Mitral Valve: Normal mitral valve leaflet structure. There is mild mitralvalve regurgitation. Aortic Valve: The aortic cusps appear mildly thickened. Mild aortic valvestenosis. The mean transaortic gradient is 8.23 mmHg. The aortic valve area by thecontinuity equation (using VTI) is 1.51 cm2. Aortic valve dimensionless index 0.59. Tricuspid Valve: The tricuspid valve demonstrates normal leafletstructure. There is mild tricuspid regurgitation. The estimated right ventricular systolic pressureis 35- 40 mmHg. Pulmonic Valve: The pulmonic valve demonstrates normal leaflet structure.No evidence of pulmonic regurgitation. Pericardium: No pericardial effusion. Aorta: The aortic root is normal in size. The aortic root is normal insize when indexed. The ascending aorta is normal in size when indexed. Incidental Findings: Right pleural effusion. CONCLUSIONS: 1. Reduced image resolution; Concentric LV remodeling. There ishyperdynamic left ventricular systolic function. The Ejection Fraction (Oliva's) ismeasured at 82 %. 2. Right ventricular dilatation. MEASUREMENTS: 2D/MM Value Range DopplerValue Range LVIDd 2D 3.86 cm [ 3.80 - 5.20 ] AV Peak Vel1.80 m/s [ 1.00 - 1.70 ] LVIDs 2D 2.08 cm [ 2.20 - 3.50 ] AV Peak PG12.96 IVSd 2D 0.93 cm [ 0.60 - 0.90 ] AV Mean PG8.23 mmHg LVPWd 2D 0.92 cm [ 0.60 - 0.90 ] AV VTI42.64 cm LV Thickness Ratio 1.01 LVOT Peak Vel1.17 m/s [ 0.70 - 1.10 ] LV FS 2D 46.23 % [ 27.00 - 45.00 ] LVOT Peak PG5.48 LV Mass 2D 109.48 g LVOT Mean PG3.17 mmHg LV Mass Index 2D 64.78 g/m2 LVOT VTI25.35 cm RWT 0.48 LVOT Diam1.80 cm EDV Mod BP 51.94 ml [ 46.00 - 106.00 ] KANCHAN VTI1.51 cm2 LV EDV Index 30.73 ml/m2 LVOT/AV VTI0.59 - Dimensionless index (DVI) ESV Mod BP 9.62 ml [ 14.00 - 42.00 ] MV E Peak Vel1.35 m/s [ 0.60 - 1.30 ] EF Mod BP 82 % [ 54 - 74 ] MV A Peak Vel0.36 m/s [ 1.00 - 1.20 ] LA Length 4C 5.20 cm MV E/A3.74 ratio [ 0.80 - 1.50 ] RV Base Dimen 2D 4.5 cm [ 2.5 - 4.2 ] MV Decel Oaig623.68 msec [ 104.00 - 258.00 ] TAPSE 1.21 cm [ 1.71 - 5.00 ] Med E` Vel5.02 cm/sec [ 8.00 - 15.00 ] RA Volume 34.75 ml Lat E` Vel6.42 cm/sec [ 10.00 - 15.00 ] RA Volume Index 20.56 ml/m2 Average E/E`23.60 AoR Diam 2D 2.79 cm [ 2.70 - 3.70 ] RV S`10.01 cm/sec Ao Root Index 1.65 cm/m2 [ 1.00 - 2.00 ] TR Peak Vel3.08 m/s [ 1.00 - 2.80 ] Asc Ao Diam 2D 2.35 cm TR Peak PG37.9 Asc Ao Index 1.39 cm/m2 PV Peak Vel0.69 m/s [ 0.40 - 0.80 ] PV Peak PG 1.90 - ATTESTATION: I have reviewed and interpreted the pertinent images and measurements ofthis study. I attest to the conclusions in the final report that is provided above. DISCLAIMER: The study images and the final report will be retained in the patientchart by the Echo Laboratory for the legally required time period. This chart constitutesthe legal record of any testing performed. Electronically Signed By: Jose Almaraz MD 10/13/2024 11:11:[address] LIGHT SERVICER Electronically Signed By: Jose Almaraz MD 10/13/2024 11:11:[address] LIGHT SERVICER Moises Orellana NP CV ECHO PROCEDURES F inal Result * (ABNORMAL) Calcium, ionized, whole blood (10/13/2024 6:[address] LIGHT SERVICER) Ca, ionized, bld 3.96(L) 4.50 - 5.10 mg/dL Blood 10/13/2024 6:[address] LIGHT SERVICER 10/13/2024 6:[address] LIGHT SERVICER Arlet Peters [employer] [employer] [facility] LAB BLOOD ORDERABLES Fi nal Result Performing Organization Address [facility] Co de Phone Number [facility] [place] [address] * eGFR (10/13/2024 6:[address] LIGHT SERVICER) Pathologist [facility] eGFR >90 >=60 mL/min/1. 73 m2 Comment: Interpretive Data Reference Interval Normal >/= 90 mL/min/1.73m2 Mildly decreased* 60 - 89 mL/min/1.73m2 Mildly to moderately decreased 45 - 59 mL/min/1.73m2 Moderately to severely decreased 30 - 44 mL/min/1.73m2 Severely decreased 15 - 29 mL/min/1.73m2 Kidney Failure < 15 mL/min/1.73m2 *Relative to young adult level Estimated glomerular filtration rate is determined by the 2020 CKD-EPI equation recommended by the National Kidney Foundation (A Unifying Approach to GFR Estimation: Recommendations of the NKF-ASK Task Force on Reassessing the Inclusion of Race in Diagnosing Kidney Disease, JASN 2020). The CKD-EPI equation should not be used for patients with unstable renal function and has not been validated in children and those over 70. Current interpretive data was last reviewed 2021. Blood 10/13/2024 6:[address] LIGHT SERVICER 10/13/2024 6:[address] LIGHT SERVICER Arlet Peters [employer] LAB BLOOD ORDERABLES Fi nal Result Performing Organization Address City/[facility]/ZIP Co de Phone Number [facility] [place] [address] * (ABNORMAL) Basic metabolic panel (10/13/2024 6:[address] LIGHT SERVICER) Pathologist [facility] Sodium 128(L) 135 - 145 mmol/L Potassium, pl 3.5 3.3 - 4.9 mmol/L [facility] Chloride 93(L) 97 - 110 mmol/L [facility] CO2 26 22 - 32 mmol/L [facility] Anion gap 9 2 - 15 mmol/L [facility] BUN 11 6 - 25 mg/dL [facility] Creatinine 0.47(L) 0.60 - 1.10 mg/dL [facility] Glucose 106 70 - 199 mg/dL [facility] Comment: Interpretive Data Fasting glucose >/= 126 mg/dl is diagnostic for diabetes. Fasting is defined as no caloric intake for at least 8 hours. Fasting glucose between 100 mg/dl to 125 mg/dl is diagnostic of prediabetes. In a patient with classic symptoms of hyperglycemia or hyperglycemic crisis, a random glucose >/= 200 mg/dl is diagnostic for diabetes. In the absence of unequivocal hyperglycemia, results should be confirmed by repeat testing. The classification and Diagnosis of Diabetes Diabetes Care 2021; 46: S19-S40. Current interpretive data was last revised 2022. Calcium 7.2(L) 8.5 - 10.3 mg/dL [facility] Blood 10/13/2024 6:[address] LIGHT SERVICER 10/13/2024 6:[address] LIGHT SERVICER us Arlet Peters NP LAB BLOOD ORDERABLES nal Result [facility] Department [place] [address] * eGFR (10/12/2024 10:[address] LIGHT SERVICER) Pathologist [facility] eGFR >90 >=60 mL/min/1. 73 m2 Comment: Interpretive Data Reference Interval Normal >/= 90 mL/min/1.73m2 Mildly decreased* 60 - 89 mL/min/1.73m2 Mildly to moderately decreased 45 - 59 mL/min/1.73m2 Moderately to severely decreased 30 - 44 mL/min/1.73m2 Severely decreased 15 - 29 mL/min/1.73m2 Kidney Failure < 15 mL/min/1.73m2 *Relative to young adult level Estimated glomerular filtration rate is determined by the 2020 CKD-EPI equation recommended by the National Kidney Foundation (A Unifying Approach to GFR Estimation: Recommendations of the NKF-ASK Task Force on Reassessing the Inclusion of Race in Diagnosing Kidney Disease, JASN 2020). The CKD-EPI equation should not be used for patients with unstable renal function and has not been validated in children and those over 70. Current interpretive data was last reviewed 2021. Blood 10/12/2024 10:[address] LIGHT SERVICER 10/12/2024 10:[address] LIGHT SERVICER us [place] DUMONT LAB BLOOD ORDERABLE S Final Result [facility] Department [place] [address] * (ABNORMAL) CBC with auto differential (10/12/2024 10:[address] LIGHT SERVICER) WBC 23.3(H) 3.8 - 9.9 K/cumm Hgb 10.2(L) 11.9 - 15.5 g/dL [facility] Hct 30.0(L) 35.6 - 45.5 % [facility] Plt 236 150 - 400 K/cumm [facility] MPV 9.9 9.1 - 12.3 fL [facility] RBC 3.55(L) 3.90 - 5.20 M/cumm [facility] MCV 84.5 81.3 - 96.4 fL [facility] MCH 28.7 27.1 - 33.3 pg [facility] MCHC 34.0 32.3 - 35.7 g/dL [facility] RDW CV 15.4(H) 11.1 - 14.9 % [facility] RDW SD 46.4 35.7 - 48.1 fL [facility] NRBC abs 0.00 0.00 - 0.01 K/cumm [facility] Blood 10/12/2024 10:[address] LIGHT SERVICER 10/12/2024 10:[address] LIGHT SERVICER [place] DUMONT LAB BLOOD ORDERABLE S Final Result [facility] Department [place] [address] * (ABNORMAL) Manual Differential (10/12/2024 10:[address] LIGHT SERVICER) Differential Manual Cells Counted 133 [facility] Neutrophil abs 19.8(H) 1.5 - 6.5 K/cumm [facility] Imm gran abs 2.1(H) 0.0 - 0.1 K/cumm [facility] Lymphocyte abs 0.2(L) 0.8 - 3.3 K/cumm [facility] Monocyte abs 1.2(H) 0.2 - 0.8 K/cumm [facility] Neutrophil pct 84.9 % [facility] Comment: Interpretive Data Percent cell count reference ranges are not reported, since discordance with absolute values may lead to misinterpretation of CBC data. Current Interpretive Data was last revised on 2017. Lymphocyte pct 0.8 % [facility] Comment: Interpretive Data Percent cell count reference ranges are not reported, since discordance with absolute values may lead to misinterpretation of CBC data. Current Interpretive Data was last revised on 2017. Monocyte pct 5.3 % [facility] Comment: Interpretive Data Percent cell count reference ranges are not reported, since discordance with absolute values may lead to misinterpretation of CBC data. Current Interpretive Data was last revised on 2017. Metamyelocyte pct 9.0(H) 0.0 - 0.0 % [facility] Blood 10/12/2024 10:[address] LIGHT SERVICER 10/12/2024 10:[address] LIGHT SERVICER [place] DUM[facility] LAB BLOOD ORDERABLE S Final Result [facility] [place] [address] * Phosphorus (10/12/2024 10:[address] LIGHT SERVICER) [facility] Phosphorus, pl 3.3 2.3 - 4.5 mg/dL Blood 10/12/2024 10:[address] LIGHT SERVICER 10/12/2024 10:[address] LIGHT SERVICER [place] DUMONT LAB BLOOD ORDERABLE S Final Result Performing Organization Address City/[facility] Co de Phone Number [facility] [place] [address] * Magnesium (10/12/2024 10:[address] LIGHT SERVICER) [facility] Magnesium 1.6 1.4 - 2.5 mg/dL Blood 10/12/2024 10:[address] LIGHT SERVICER 10/12/2024 10:[address] LIGHT SERVICER [place] DUMONT LAB BLOOD ORDERABLE S Final Result Performing Organization Address [facility] de Phone Number [facility] Department [place] [address] * (ABNORMAL) Basic metabolic panel (10/12/2024 10:[address] LIGHT SERVICER) [facility] Sodium 127(L) 135 - 145 mmol/L Potassium, pl 3.9 3.3 - 4.9 mmol/L [facility] Chloride 90(L) 97 - 110 mmol/L [facility] CO2 26 22 - 32 mmol/L [facility] Anion gap 11 2 - 15 mmol/L [facility] BUN 10 6 - 25 mg/dL [facility] Creatinine 0.51(L) 0.60 - 1.10 mg/dL [facility] Glucose 125 70 - 199 mg/dL [facility] Comment: Interpretive Data Fasting glucose >/= 126 mg/dl is diagnostic for diabetes. Fasting is defined as no caloric intake for at least 8 hours. Fasting glucose between 100 mg/dl to 125 mg/dl is diagnostic of prediabetes. In a patient with classic symptoms of hyperglycemia or hyperglycemic crisis, a random glucose >/= 200 mg/dl is diagnostic for diabetes. In the absence of unequivocal hyperglycemia, results should be confirmed by repeat testing. The classification and Diagnosis of Diabetes Diabetes Care 2021; 46: S19-S40. Current interpretive data was last revised 2022. Calcium 7.2(L) 8.5 - 10.3 mg/dL [facility] Blood 10/12/2024 10:[address] LIGHT SERVICER 10/12/2024 10:[address] LIGHT SERVICER us [place] DUMONT LAB BLOOD ORDERABLE S Final Result [facility] [place] [address] * (ABNORMAL) Pro B-type natriuretic peptide (10/12/2024 12:[address] LIGHT SERVICER) NT-proBNP 8,720(H) <=450 pg/mL Comment: Interpretive Comments: A. Dyspnea in Acute Care Setting All Ages: < 300 pg/ml, acute heart failure unlikely. < 50 yrs: 300 - 450 pg/ml, further investigation warranted. > 450 pg/ml, acute heart failure likely. 50 - 74 yrs: 300 - 900 pg/ml, further investigation warranted. > 900 pg/ml, acute heart failure likely . > or = 75 yrs: 450 - 1800 pg/ml, further investigation warranted. > 1800 pg/ml, acute heart failure likely. B. Non-acute Setting < 75 yrs < 125 pg/ml, rules out heart failure. > or = 125 pg/ml, further investigation warranted. > or = 75 yrs < 450 pg/ml, rules out heart failure. > or = 450 pg/ml, further investigation warranted. - Knowledge of each individual patient's NT-proBNP range may be more useful than using similar cut-points for every patient. Please note that marked elevations in NT-proBNP levels may be observed in state other than Left Ventricular Congestive Failure, including: acute coronary syndromes, right heart strain/failure (including pulmonary embolism and cor pulmonale), critical illness, renal failure, as well as advanced age. - References: 1. Tami VU et.al. Eur Heart J. 2006:27:330-337. 2. Denise CIFUENTES, Kacie LOPEZ. J. AM Emani Cardiol: Cardiovasc Imag. 2009;2: 216- 225. Interpretive Data Last Revised Date: 2018. Blood 10/12/2024 12:[address] LIGHT SERVICER 10/12/2024 12:[address] LIGHT SERVICER Moises Orellana [employer] [facility] LAB BLOOD ORDERABLES Final Result [facility] [place] [address] * Respiratory pathogen panel Nasopharyngeal (10/12/2024 12:[address] LIGHT SERVICER) Influenza A RNA Equivocal Not Detected Comment:Equivocal results ma y be due to a low level of a target or the presence of inhibitory substances. Recommend submission of a second separately collected specimen if clinically indicated. Influenza B RNA Not Detected Not Detected [facility] RSV RNA Not Detected Not Detected [facility] COVID-19 RNA Not Detected Not Detected [facility] Coronavirus 229E RNA Not Detected Not Detected [facility] Coronavirus HKU1 RNA Not Detected Not Detected [facility] Coronavirus NL63 RNA Not Detected Not Detected [facility] Coronavirus OC43 RNA Not Detected Not Detected [facility] Adenovirus DNA Not Detected Not Detected [facility] Metapneumovirus RNA Not Detected Not Detected [facility] Rhinovirus/Enterov irus RNA Not Detected Not Detected [facility] Parainfluenza 1 RNA Not Detected Not Detected [facility] Parainfluenza 2 RNA Not Detected Not Detected [facility] Parainfluenza 3 RNA Not Detected Not Detected [facility] Parainfluenza 4 RNA Not Detected Not Detected [facility] B. pertussis DNA Not Detected Not Detected [facility] B. parapertussis DNA Not Detected Not Detected [facility] C. pneumoniae DNA Not Detected Not Detected [facility] M. pneumoniae DNA Not Detected Not Detected [facility] Nasopharyngeal 10/12/2024 12 :[address] LIGHT SERVICER 10/12/2024 12:[address] LIGHT SERVICER Narrative [facility] - 10/12/2024 3:[address] LIGHT SERVICER Is the Patient experiencing symptoms consistent with COVID?->Unknown Surveillance testing for transplant patient?->No Interpretive Data The [employer] FilmArray Respiratory Panel (RP2.1) assay is a multiplexed real-time PCR based nucleic acid test capable of simultaneous qualitative detection and identification of multiple respiratory viral and bacterial nucleic acids, including SARS Coronavirus 2 (the causative agent of COVID-19). The following bacteria, viruses and virus subtypes can be identified using the FilmArray RP2.1 assay: Bordetella pertussis, Bordetella parapertussis, Chlamydia pneumoniae, Mycoplasma pneumoniae, Adenovirus, SARS Coronavirus 2, seasonal coronaviruses (Coronavirus HKU1, Coronavirus NL63, Coronavirus 229E, and Coronavirus OC43), Influenza A, Influenza A subtype H1, Influenza A subtype H3, Influenza A subtype 2009 H1, Influenza B, Metapneumovirus, Parainfluenza 1, Parainfluenza 2, Parainfluenza 3, Parainfluenza 4, RSV, Rhinovirus/Enterovirus. Due to the genetic similarity between human Rhinovirus and Enterovirus, the FilmArray RP2.1 assay cannot reliably differentiate them. Coronavirus OC43 may cross-react with some isolates of Coronavirus HKU1. A dual positive result may be due to cross-reactivity or may indicate a co- infection. The detection and identification of specific viral and bacterial nucleic acids from individuals exhibiting signs and symptoms of a respiratory infection aids in the diagnosis of respiratory infection if used in conjunction with other clinical and epidemiological information. The results of this test should not be used as the sole basis for diagnosis, treatment, or other management decisions. Negative results in the setting of a respiratory illness may be due to infection with pathogens that are not detected by this test. Positive results do not rule out infection/co-infection with other organisms. The agent(s) detected by the FilmArray RP2.1 may not be the definite cause of disease. Additional testing (lab, imaging, etc.) may be necessary when evaluating a patient with possible respiratory tract infection. The FilmArray RP2.1 assay has FDA clearance for testing of STITCHDOWN THREAD LASTER swabs. The performance of additional specimen types has been assessed by the performing laboratory. The performance characteristics of this assay have been determined by [facility] Molecular Infectious Disease Laboratory. Current interpretive data was last revised on 22. Moises Orellana [employer] [facility] LAB MICROBIOLOGY - G ENERAL ORDERABLES Final Result Performing Organization Address [facility] de Phone Number [facility] [place] [address] * (ABNORMAL) Protime-INR (10/12/2024 12:[address] LIGHT SERVICER) PT 13.6(H) 9.7 - 13.0 sec INR 1.25(H) 0.90 - 1.20 [facility] Comment: Interpretive data Oral anticoagulant therapeutic ranges: Venous thromboembolism prophylaxis or treatment: 2.0-3.0 CARDIOLOGY Standard range: 2.0-3.0 High-intensity range: 2.5-3.5 Refer to indication-specific guidelines for appropriate target ranges for prosthetic heart valve replacement. Current interpretive data was last revised on 2019. Blood 10/12/2024 12:[address] LIGHT SERVICER 10/12/2024 12:[address] LIGHT SERVICER Moises Orellana [employer] LAB BLOOD ORDERABLES Final Result Performing Organization Address [facility] de Phone Number [facility] Department of Laboratories [place] [address] * XR Chest 1 View (10/12/2024 7:[address] LIGHT SERVICER) Anatomical Region Laterality Modality Body, Chest N/A Computed Radiogr aphy 10/12/2024 9:[address] LIGHT SERVICER Impressions 10/12/2024 9:[address] LIGHT SERVICER Interval extubation. Spinal fixation instruments and drains project over the midline. Moderate to large volume right pleural effusion with right mid to lower lobe partial collapse likely related to mucous plugging. Rightward mediastinal shift. There is worsening airspace opacity now in the left mid and lower lung, while this could be extensive atelectasis consider the possibility of pneumonia including aspiration. Small left layering effusion. There is no pneumothorax. Cardiac silhouette is obscured. Dictated by: Shell Nicholson MD The radiology attending physician has personally reviewed this study, and had reviewed and/or edited this written report and agrees with it. Electronically signed by: Araceli Khoury M.D. Narrative 10/12/2024 9:[address] LIGHT SERVICER EXAMINATION: XR CHEST 1 VIEW HISTORY: dyspnea COMPARISON:Radiograph from 10/05/2024 Procedure Note Araceli Khoury MD - 10/12/2024 EXAMINATION: XR CHEST 1 VIEW HISTORY: dyspnea COMPARISON:Radiograph from 10/05/2024 IMPRESSION: Interval extubation. Spinal fixation instruments and drains project over the midline. Moderate to large volume right pleural effusion with right mid to lower lobe partial collapse likely related to mucous plugging. Rightward mediastinal shift. There is worsening airspace opacity now in the left mid and lower lung, while this could be extensive atelectasis consider the possibility of pneumonia including aspiration. Small left layering effusion. There is no pneumothorax. Cardiac silhouette is obscured. Dictated by: Shell Nicholson MD The radiology attending physician has personally reviewed this study, and had reviewed and/or edited this written report and agrees with it. Electronically signed by: Araceli Khoury M.D. Moises Orellana NP IMG XR PROCEDURES Fi nal Result * eGFR (10/11/2024 10:[address] LIGHT SERVICER) eGFR >90 >=60 mL/min/1. 73 m2 Comment: Interpretive Data Reference Interval Normal >/= 90 mL/min/1.73m2 Mildly decreased* 60 - 89 mL/min/1.73m2 Mildly to moderately decreased 45 - 59 mL/min/1.73m2 Moderately to severely decreased 30 - 44 mL/min/1.73m2 Severely decreased 15 - 29 mL/min/1.73m2 Kidney Failure < 15 mL/min/1.73m2 *Relative to young adult level Estimated glomerular filtration rate is determined by the 2020 CKD-EPI equation recommended by the National Kidney Foundation (A Unifying Approach to GFR Estimation: Recommendations of the NKF-ASK Task Force on Reassessing the Inclusion of Race in Diagnosing Kidney Disease, JASN 202). The CKD-EPI equation should not be used for patients with unstable renal function and has not been validated in children and those over 70. Current interpretive data was last reviewed 2021. Blood 10/11/2024 10:[address] LIGHT SERVICER 10/11/2024 10:[address] LIGHT SERVICER us [place] [facility] BLOOD ORDERABLE S Final Result [facility] [place] [address] * Differential, auto (10/11/2024 10:[address] LIGHT SERVICER) Neutrophil abs 4.7 1.5 - 6.5 K/cumm Imm gran abs 0.1 0.0 - 0.1 K/cumm [facility] Lymphocyte abs 0.8 0.8 - 3.3 K/cumm [facility] Monocyte abs 0.5 0.2 - 0.8 K/cumm [facility] Eosinophil abs 0.1 0.0 - 0.5 K/cumm [facility] Basophil abs 0.0 0.0 - 0.1 K/cumm [facility] Neutrophil pct 74.9 % [facility] Comment: Interpretive Data Percent cell count reference ranges are not reported, since discordance with absolute values may lead to misinterpretation of CBC data. Current Interpretive Data was last revised on 2017. Imm gran pct 1.9 % [facility] Comment: Interpretive Data Percent cell count reference ranges are not reported, since discordance with absolute values may lead to misinterpretation of CBC data. Current Interpretive Data was last revised on 2017. Lymphocyte pct 13.4 % [facility] Comment: Interpretive Data Percent cell count reference ranges are not reported, since discordance with absolute values may lead to misinterpretation of CBC data. Current Interpretive Data was last revised on 2017. Monocyte pct 7.9 % [facility] Comment: Interpretive Data Percent cell count reference ranges are not reported, since discordance with absolute values may lead to misinterpretation of CBC data. Current Interpretive Data was last revised on 2017. Eosinophil pct 1.6 % [facility] Comment: Interpretive Data Percent cell count reference ranges are not reported, since discordance with absolute values may lead to misinterpretation of CBC data. Current Interpretive Data was last revised on 2017. Basophil pct 0.3 % [facility] Comment: Interpretive Data Percent cell count reference ranges are not reported, since discordance with absolute values may lead to misinterpretation of CBC data. Current Interpretive Data was last revised on 2017. Blood 10/11/2024 10:[address] LIGHT SERVICER 10/11/2024 10:[address] LIGHT SERVICER [place] [facility] BLOOD ORDERABLE S Final Result [facility] [place] [address] * (ABNORMAL) CBC with auto differential (10/11/2024 10:[address] LIGHT SERVICER) WBC 6.2 3.8 - 9.9 K/cumm Hgb 11.9 11.9 - 15.5 g/dL [facility] Hct 34.5(L) 35.6 - 45.5 % [facility] Plt 220 150 - 400 K/cumm [facility] MPV 9.9 9.1 - 12.3 fL [facility] RBC 4.11 3.90 - 5.20 M/cumm [facility] MCV 83.9 81.3 - 96.4 fL [facility] MCH 29.0 27.1 - 33.3 pg [facility] MCHC 34.5 32.3 - 35.7 g/dL [facility] RDW CV 14.8 11.1 - 14.9 % [facility] RDW SD 45.1 35.7 - 48.1 fL [facility] NRBC abs 0.02(H) 0.00 - 0.01 K/cumm [facility] Blood 10/11/2024 10:[address] LIGHT SERVICER 10/11/2024 10:[address] LIGHT SERVICER [place] [facility] BLO[facility] ORDERABLE S Final Result Performing Organization Address City/[facility]/ZIP Co de Phone Number [facility] [place] [address] * Type and screen (10/11/2024 10:[address] LIGHT SERVICER) Pathologist [facility] ABO Rh A Positive [place], indirect Negative [facility] Blood 10/11/2024 10:[address] LIGHT SERVICER 10/11/2024 10:[address] LIGHT SERVICER Narrative [facility] - 10/11/2024 11:[address] LIGHT SERVICER Has the patient had Daratumumab or Isatuximab in the past 6 months?->Unknown [place] [facility] BLOOD BANK TEST ORDERABLES Final Result Performing Organization Address [facility] Co de Phone Number [facility] [place] [address] * Phosphorus (10/11/2024 10:[address] LIGHT SERVICER) Pathologist [facility] Phosphorus, pl 2.3 2.3 - 4.5 mg/dL Blood 10/11/2024 10:[address] LIGHT SERVICER 10/11/2024 10:[address] LIGHT SERVICER [place] [facility] BLOOD ORDERABLE S Final Result Performing Organization Address City/[facility]/[place] [address] * Magnesium (10/11/2024 10:[address] LIGHT SERVICER) Pathologist [facility] Magnesium 1.8 1.4 - 2.5 mg/dL Blood 10/11/2024 10:[address] LIGHT SERVICER 10/11/2024 10:[address] LIGHT SERVICER [place] [facility] BLOOD ORDERABLE S Final Result [facility] Department [place] [address] * (ABNORMAL) Basic metabolic panel (10/11/2024 10:[address] LIGHT SERVICER) [facility] Sodium 128(L) 135 - 145 mmol/L Potassium, pl 3.7 3.3 - 4.9 mmol/L [facility] Chloride 93(L) 97 - 110 mmol/L [facility] CO2 26 22 - 32 mmol/L [facility] Anion gap 9 2 - 15 mmol/L [facility] BUN 8 6 - 25 mg/dL [facility] Creatinine 0.37(L) 0.60 - 1.10 mg/dL [facility] Glucose 113 70 - 199 mg/dL [facility] Comment: Interpretive Data Fasting glucose >/= 126 mg/dl is diagnostic for diabetes. Fasting is defined as no caloric intake for at least 8 hours. Fasting glucose between 100 mg/dl to 125 mg/dl is diagnostic of prediabetes. In a patient with classic symptoms of hyperglycemia or hyperglycemic crisis, a random glucose >/= 200 mg/dl is diagnostic for diabetes. In the absence of unequivocal hyperglycemia, results should be confirmed by repeat testing. The classification and Diagnosis of Diabetes Diabetes Care 2021; 46: S19-S40. Current interpretive data was last revised 2022. Calcium 7.8(L) 8.5 - 10.3 mg/dL [facility] Blood 10/11/2024 10:[address] LIGHT SERVICER 10/11/2024 10:[address] LIGHT SERVICER [place] [facility] BLOOD ORDERABLE S Final Result Performing Organization Address City/[facility]/ZIP Co de Phone Number [facility] Department [place] [address] * eGFR (10/10/2024 10:[address] LIGHT SERVICER) eGFR >90 >=60 mL/min/1. 73 m2 Comment: Interpretive Data Reference Interval Normal >/= 90 mL/min/1.73m2 Mildly decreased* 60 - 89 mL/min/1.73m2 Mildly to moderately decreased 45 - 59 mL/min/1.73m2 Moderately to severely decreased 30 - 44 mL/min/1.73m2 Severely decreased 15 - 29 mL/min/1.73m2 Kidney Failure < 15 mL/min/1.73m2 *Relative to young adult level Estimated glomerular filtration rate is determined by the 2020 CKD-EPI equation recommended by the National Kidney Foundation (A Unifying Approach to GFR Estimation: Recommendations of the NKF-ASK Task Force on Reassessing the Inclusion of Race in Diagnosing Kidney Disease, JASN 2020). The CKD-EPI equation should not be used for patients with unstable renal function and has not been validated in children and those over 70. Current interpretive data was last reviewed 2021. Blood 10/10/2024 10:[address] LIGHT SERVICER 10/10/2024 11:[address] LIGHT SERVICER [place] [facility] BLOOD ORDERABLE S Final Result [facility] [place] [address] * Differential, auto (10/10/2024 10:[address] LIGHT SERVICER) Pathologist [facility] Neutrophil abs 4.0 1.5 - 6.5 K/cumm Imm gran abs 0.1 0.0 - 0.1 K/cumm [facility] Lymphocyte abs 0.9 0.8 - 3.3 K/cumm [facility] Monocyte abs 0.6 0.2 - 0.8 K/cumm [facility] Eosinophil abs 0.1 0.0 - 0.5 K/cumm [facility] Basophil abs 0.0 0.0 - 0.1 K/cumm [facility] Neutrophil pct 70.3 % [facility] Comment: Interpretive Data Percent cell count reference ranges are not reported, since discordance with absolute values may lead to misinterpretation of CBC data. Current Interpretive Data was last revised on 2017. Imm gran pct 1.6 % [facility] Comment: Interpretive Data Percent cell count reference ranges are not reported, since discordance with absolute values may lead to misinterpretation of CBC data. Current Interpretive Data was last revised on 2017. Lymphocyte pct 15.3 % [facility] Comment: Interpretive Data Percent cell count reference ranges are not reported, since discordance with absolute values may lead to misinterpretation of CBC data. Current Interpretive Data was last revised on 2017. Monocyte pct 9.8 % [facility] Comment: Interpretive Data Percent cell count reference ranges are not reported, since discordance with absolute values may lead to misinterpretation of CBC data. Current Interpretive Data was last revised on 2017. Eosinophil pct 2.5 % [facility] Comment: Interpretive Data Percent cell count reference ranges are not reported, since discordance with absolute values may lead to misinterpretation of CBC data. Current Interpretive Data was last revised on 2017. Basophil pct 0.5 % [facility] Comment: Interpretive Data Percent cell count reference ranges are not reported, since discordance with absolute values may lead to misinterpretation of CBC data. Current Interpretive Data was last revised on 2017. Blood 10/10/2024 10:[address] LIGHT SERVICER 10/10/2024 11:[address] LIGHT SERVICER us [place] [facility] BLOOD ORDERABLE S Final Result [facility] Department of Laboratories [place], [place] [id number] * (ABNORMAL) CBC with auto differential (10/10/2024 10:[address] LIGHT SERVICER) WBC 5.7 3.8 - 9.9 K/cumm Hgb 11.0(L) 11.9 - 15.5 g/dL [facility] Hct 32.2(L) 35.6 - 45.5 % [facility] Plt 180 150 - 400 K/cumm [facility] MPV 9.8 9.1 - 12.3 fL [facility] RBC 3.75(L) 3.90 - 5.20 M/cumm [facility] MCV 85.9 81.3 - 96.4 fL [facility] MCH 29.3 27.1 - 33.3 pg [facility] MCHC 34.2 32.3 - 35.7 g/dL [facility] RDW CV 15.3(H) 11.1 - 14.9 % [facility] RDW SD 47.2 35.7 - 48.1 fL [facility] NRBC abs 0.00 0.00 - 0.01 K/cumm [facility] Blood 10/10/2024 10:[address] LIGHT SERVICER 10/10/2024 11:[address] LIGHT SERVICER [place] [facility] BLOOD ORDERABLE S Final Result [facility] Department [place] [address] * Phosphorus (10/10/2024 10:[address] LIGHT SERVICER) Phosphorus, pl 2.5 2.3 - 4.5 mg/dL Blood 10/10/2024 10:[address] LIGHT SERVICER 10/10/2024 11:[address] LIGHT SERVICER [place] [facility] BLOOD ORDERABLE S Final Result [facility] [place] [address] * Magnesium (10/10/2024 10:[address] LIGHT SERVICER) Magnesium 2.0 1.4 - 2.5 mg/dL Blood 10/10/2024 10:[address] LIGHT SERVICER 10/10/2024 11:[address] LIGHT SERVICER [place] [facility] BLOOD ORDERABLE S Final Result [facility] [place] [address] * (ABNORMAL) Basic metabolic panel (10/10/2024 10:[address] LIGHT SERVICER) [facility] Sodium 133(L) 135 - 145 mmol/L Potassium, pl 4.0 3.3 - 4.9 mmol/L [facility] Chloride 98 97 - 110 mmol/L [facility] CO2 27 22 - 32 mmol/L [facility] Anion gap 8 2 - 15 mmol/L [facility] BUN 10 6 - 25 mg/dL [facility] Creatinine 0.36(L) 0.60 - 1.10 mg/dL [facility] Glucose 113 70 - 199 mg/dL [facility] Comment: Interpretive Data Fasting glucose >/= 126 mg/dl is diagnostic for diabetes. Fasting is defined as no caloric intake for at least 8 hours. Fasting glucose between 100 mg/dl to 125 mg/dl is diagnostic of prediabetes. In a patient with classic symptoms of hyperglycemia or hyperglycemic crisis, a random glucose >/= 200 mg/dl is diagnostic for diabetes. In the absence of unequivocal hyperglycemia, results should be confirmed by repeat testing. The classification and Diagnosis of Diabetes Diabetes Care 2021; 46: S19-S40. Current interpretive data was last revised 2022. Calcium 7.8(L) 8.5 - 10.3 mg/dL [facility] Blood 10/10/2024 10:[address] LIGHT SERVICER 10/10/2024 11:[address] LIGHT SERVICER [place] [facility] BLOOD ORDERABLE S Final Result Performing Organization Address [facility]/ZIP Co de Phone Number [facility] Department [place] [address] * eGFR (10/09/2024 10:[address] LIGHT SERVICER) [facility] eGFR >90 >=60 mL/min/1. 73 m2 Comment: Interpretive Data Reference Interval Normal >/= 90 mL/min/1.73m2 Mildly decreased* 60 - 89 mL/min/1.73m2 Mildly to moderately decreased 45 - 59 mL/min/1.73m2 Moderately to severely decreased 30 - 44 mL/min/1.73m2 Severely decreased 15 - 29 mL/min/1.73m2 Kidney Failure < 15 mL/min/1.73m2 *Relative to young adult level Estimated glomerular filtration rate is determined by the 2020 CKD-EPI equation recommended by the National Kidney Foundation (A Unifying Approach to GFR Estimation: Recommendations of the NKF-ASK Task Force on Reassessing the Inclusion of Race in Diagnosing Kidney Disease, JASN 2020). The CKD-EPI equation should not be used for patients with unstable renal function and has not been validated in children and those over 70. Current interpretive data was last reviewed 2021. Blood 10/09/2024 10:[address] LIGHT SERVICER 10/09/2024 10:[address] LIGHT SERVICER us [place] [facility] BLOOD ORDERABLE S Final Result [facility] [place] [address] * Differential, auto (10/09/2024 10:[address] LIGHT SERVICER) [facility] Neutrophil abs 5.9 1.5 - 6.5 K/cumm Imm gran abs 0.0 0.0 - 0.1 K/cumm [facility] Lymphocyte abs 0.8 0.8 - 3.3 K/cumm [facility] Monocyte abs 0.6 0.2 - 0.8 K/cumm [facility] Eosinophil abs 0.2 0.0 - 0.5 K/cumm [facility] Basophil abs 0.0 0.0 - 0.1 K/cumm [facility] Neutrophil pct 78.4 % [facility] Comment: Interpretive Data Percent cell count reference ranges are not reported, since discordance with absolute values may lead to misinterpretation of CBC data. Current Interpretive Data was last revised on 2017. Imm gran pct 0.5 % [facility] [place] Comment: Interpretive Data Percent cell count reference ranges are not reported, since discordance with absolute values may lead to misinterpretation of CBC data. Current Interpretive Data was last revised on 2017. Lymphocyte pct 10.8 % [facility] [place] Comment: Interpretive Data Percent cell count reference ranges are not reported, since discordance with absolute values may lead to misinterpretation of CBC data. Current Interpretive Data was last revised on 2017. Monocyte pct 7.9 % [facility] [place] Comment: Interpretive Data Percent cell count reference ranges are not reported, since discordance with absolute values may lead to misinterpretation of CBC data. Current Interpretive Data was last revised on 2017. Eosinophil pct 2.1 % [facility] [place] Comment: Interpretive Data Percent cell count reference ranges are not reported, since discordance with absolute values may lead to misinterpretation of CBC data. Current Interpretive Data was last revised on 2017. Basophil pct 0.3 % [facility] Comment: Interpretive Data Percent cell count reference ranges are not reported, since discordance with absolute values may lead to misinterpretation of CBC data. Current Interpretive Data was last revised on 2017. Blood 10/09/2024 10:[address] LIGHT SERVICER 10/09/2024 10:[address] LIGHT SERVICER us [place] [facility] BLOOD ORDERABLE S Final Result [facility] [place] [address] * (ABNORMAL) CBC with auto differential (10/09/2024 10:[address] LIGHT SERVICER) WBC 7.6 3.8 - 9.9 K/cumm Hgb 11.0(L) 11.9 - 15.5 g/dL [facility] Hct 33.7(L) 35.6 - 45.5 % [facility] Plt 153 150 - 400 K/cumm [facility] MPV 10.3 9.1 - 12.3 fL [facility] RBC 3.91 3.90 - 5.20 M/cumm [facility] MCV 86.2 81.3 - 96.4 fL [facility] MCH 28.1 27.1 - 33.3 pg [facility] MCHC 32.6 32.3 - 35.7 g/dL [facility] RDW CV 15.5(H) 11.1 - 14.9 % [facility] RDW SD 48.9(H) 35.7 - 48.1 fL [facility] NRBC abs 0.00 0.00 - 0.01 K/cumm [facility] Blood 10/09/2024 10:[address] LIGHT SERVICER 10/09/2024 10:[address] LIGHT SERVICER [place] [facility] BLOOD ORDERABLE S Final Result Performing Organization Address City/[facility]/ZIP Co de Phone Number [facility] Department [place] [address] * (ABNORMAL) Phosphorus (10/09/2024 10:[address] LIGHT SERVICER) Phosphorus, pl 2.2(L) 2.3 - 4.5 mg/dL Blood 10/09/2024 10:[address] LIGHT SERVICER 10/09/2024 10:[address] LIGHT SERVICER [place] [facility] BLOOD ORDERABLE S Final Result [facility] [place] [address] * Magnesium (10/09/2024 10:[address] LIGHT SERVICER) Magnesium 2.2 1.4 - 2.5 mg/dL Blood 10/09/2024 10:[address] LIGHT SERVICER 10/09/2024 10:[address] LIGHT SERVICER [place] [facility] BLOOD ORDERABLE S Final Result [facility] [place] [address] * (ABNORMAL) Basic metabolic panel (10/09/2024 10:[address] LIGHT SERVICER) Pathologist [facility] Sodium 136 135 - 145 mmol/L Potassium, pl 3.9 3.3 - 4.9 mmol/L [facility] Chloride 99 97 - 110 mmol/L [facility] CO2 30 22 - 32 mmol/L [facility] Anion gap 7 2 - 15 mmol/L [facility] BUN 10 6 - 25 mg/dL [facility] Creatinine 0.44(L) 0.60 - 1.10 mg/dL [facility] Glucose 121 70 - 199 mg/dL [facility] Comment: Interpretive Data Fasting glucose >/= 126 mg/dl is diagnostic for diabetes. Fasting is defined as no caloric intake for at least 8 hours. Fasting glucose between 100 mg/dl to 125 mg/dl is diagnostic of prediabetes. In a patient with classic symptoms of hyperglycemia or hyperglycemic crisis, a random glucose >/= 200 mg/dl is diagnostic for diabetes. In the absence of unequivocal hyperglycemia, results should be confirmed by repeat testing. The classification and Diagnosis of Diabetes Diabetes Care 202; 46: S19-S40. Current interpretive data was last revised 2022. Calcium 8.0(L) 8.5 - 10.3 mg/dL [facility] Blood 10/09/2024 10:[address] LIGHT SERVICER 10/09/2024 10:[address] LIGHT SERVICER [place] [facility] BLOOD ORDERABLE S Final Result [facility] [place] [address] * eGFR (10/09/2024 1:[address] LIGHT SERVICER) Pathologist [facility] eGFR >90 >=60 mL/min/1. 73 m2 Comment: Interpretive Data Reference Interval Normal >/= 90 mL/min/1.73m2 Mildly decreased* 60 - 89 mL/min/1.73m2 Mildly to moderately decreased 45 - 59 mL/min/1.73m2 Moderately to severely decreased 30 - 44 mL/min/1.73m2 Severely decreased 15 - 29 mL/min/1.73m2 Kidney Failure < 15 mL/min/1.73m2 *Relative to young adult level Estimated glomerular filtration rate is determined by the 2020 CKD-EPI equation recommended by the National Kidney Foundation (A Unifying Approach to GFR Estimation: Recommendations of the NKF-ASK Task Force on Reassessing the Inclusion of Race in Diagnosing Kidney Disease, JASN 2020). The CKD-EPI equation should not be used for patients with unstable renal function and has not been validated in children and those over 70. Current interpretive data was last reviewed 2021. Blood 10/09/2024 1:[address] LIGHT SERVICER 10/09/2024 1:[address] LIGHT SERVICER [place] [facility] BLOOD ORDERABLE S Final Result [facility] Department of Laboratories [place], [place] [id number] * (ABNORMAL) Differential, auto (10/09/2024 1:[address] LIGHT SERVICER) Neutrophil abs 7.7(H) 1.5 - 6.5 K/cumm Imm gran abs 0.0 0.0 - 0.1 K/cumm [facility] HEALTHCARE Lymphocyte abs 0.9 0.8 - 3.3 K/cumm [facility] Monocyte abs 0.7 0.2 - 0.8 K/cumm [facility] Eosinophil abs 0.1 0.0 - 0.5 K/cumm [facility] Basophil abs 0.0 0.0 - 0.1 K/cumm [facility] Neutrophil pct 81.8 % [facility] Comment: Interpretive Data Percent cell count reference ranges are not reported, since discordance with absolute values may lead to misinterpretation of CBC data. Current Interpretive Data was last revised on 2017. Imm gran pct 0.3 % [facility] [place] [facility] Comment: Interpretive Data Percent cell count reference ranges are not reported, since discordance with absolute values may lead to misinterpretation of CBC data. Current Interpretive Data was last revised on 2017. Lymphocyte pct 9.4 % [facility] Comment: Interpretive Data Percent cell count reference ranges are not reported, since discordance with absolute values may lead to misinterpretation of CBC data. Current Interpretive Data was last revised on 2017. Monocyte pct 7.6 % [facility] [place] Comment: Interpretive Data Percent cell count reference ranges are not reported, since discordance with absolute values may lead to misinterpretation of CBC data. Current Interpretive Data was last revised on 2017. Eosinophil pct 0.6 % [facility] Comment: Interpretive Data Percent cell count reference ranges are not reported, since discordance with absolute values may lead to misinterpretation of CBC data. Current Interpretive Data was last revised on 2017. Basophil pct 0.3 % [facility] Comment: Interpretive Data Percent cell count reference ranges are not reported, since discordance with absolute values may lead to misinterpretation of CBC data. Current Interpretive Data was last revised on 2017. Blood 10/09/2024 1:[address] LIGHT SERVICER 10/09/2024 1:[address] LIGHT SERVICER us [place] D[place] LAB BLOOD ORDERABLE S Final Result Performing Organization Address City/State/[facility] Co de Phone Number [facility] [place] [address] * (ABNORMAL) CBC with auto differential (10/09/2024 1:[address] LIGHT SERVICER) WBC 9.4 3.8 - 9.9 K/cumm Hgb 10.4(L) 11.9 - 15.5 g/dL [facility] Hct 30.8(L) 35.6 - 45.5 % [facility] Plt 119(L) 150 - 400 K/cumm [facility] MPV 10.6 9.1 - 12.3 fL [facility] RBC 3.62(L) 3.90 - 5.20 M/cumm [facility] MCV 85.1 81.3 - 96.4 fL [facility] MCH 28.7 27.1 - 33.3 pg [facility] MCHC 33.8 32.3 - 35.7 g/dL [facility] RDW CV 15.7(H) 11.1 - 14.9 % [facility] RDW SD 48.7(H) 35.7 - 48.1 fL [facility] NRBC abs 0.00 0.00 - 0.01 K/cumm [facility] Blood 10/09/2024 1:[address] LIGHT SERVICER 10/09/2024 1:[address] LIGHT SERVICER [place] LAB BLOOD ORDERABLE S Final Result Performing Organization Address City/[facility]/ZIP Co de Phone Number [facility] Department [place] [address] * Type and screen (10/09/2024 1:[address] LIGHT SERVICER) ABO Rh A Positive [place], indirect Negative [facility] Blood 10/09/2024 1:[address] LIGHT SERVICER 10/09/2024 1:[address] LIGHT SERVICER Narrative [facility] - 10/09/2024 2:[address] LIGHT SERVICER Has the patient had Daratumumab or Isatuximab in the past 6 months?->Unknown [place] LAB BLOOD BANK TEST ORDERABLES Final Result [facility] [place] [employer] [place] [address] * (ABNORMAL) Phosphorus (10/09/2024 1:[address] LIGHT SERVICER) Phosphorus, pl 1.6(L) 2.3 - 4.5 mg/dL Blood 10/09/2024 1:[address] LIGHT SERVICER 10/09/2024 1:[address] LIGHT SERVICER [place] LAB BLOOD ORDERABLE S Final Result Performing Organization Address City/[facility]/ZIP Co de Phone Number [facility] [place] [address] * Magnesium (10/09/2024 1:[address] LIGHT SERVICER) Pathologist [facility] Magnesium 2.0 1.4 - 2.5 mg/dL Blood 10/09/2024 1:[address] LIGHT SERVICER 10/09/2024 1:[address] LIGHT SERVICER [place] LAB BLOOD ORDERABLE S Final Result Performing Organization Address [facility] de Phone Number [facility] [place] [address] * (ABNORMAL) Basic metabolic panel (10/09/2024 1:[address] LIGHT SERVICER) Pathologist [facility] Sodium 136 135 - 145 mmol/L Potassium, pl 4.0 3.3 - 4.9 mmol/L [facility] Chloride 101 97 - 110 mmol/L [facility] CO2 28 22 - 32 mmol/L [facility] Anion gap 7 2 - 15 mmol/L [facility] BUN 10 6 - 25 mg/dL [facility] Creatinine 0.41(L) 0.60 - 1.10 mg/dL [facility] Glucose 107 70 - 199 mg/dL [facility] Comment: Interpretive Data Fasting glucose >/= 126 mg/dl is diagnostic for diabetes. Fasting is defined as no caloric intake for at least 8 hours. Fasting glucose between 100 mg/dl to 125 mg/dl is diagnostic of prediabetes. In a patient with classic symptoms of hyperglycemia or hyperglycemic crisis, a random glucose >/= 200 mg/dl is diagnostic for diabetes. In the absence of unequivocal hyperglycemia, results should be confirmed by repeat testing. The classification and Diagnosis of Diabetes Diabetes Care 2021; 46: S19-S40. Current interpretive data was last revised 2022. Calcium 7.8(L) 8.5 - 10.3 mg/dL [facility] Blood 10/09/2024 1:[address] LIGHT SERVICER 10/09/2024 1:[address] LIGHT SERVICER us [place] LAB BLOOD ORDERABLE S Final Result Performing Organization Address [facility] Co de Phone Number [facility] [place] [address] * POCT glucose (10/08/2024 3:[address] LIGHT SERVICER) Glucose, POC 124 70 - 199 mg/dL Blood 10/08/2024 3:[address] LIGHT SERVICER 10/08/2024 3:[address] LIGHT SERVICER Ranedll Corona MD LAB POCT ORDERABLES - DEVICE Final Result Performing Organization Address [facility] de Phone Number [facility] [place] [address] * POCT glucose (10/08/2024 10:[address] LIGHT SERVICER) Glucose, POC 124 70 - 199 mg/dL Blood 10/08/2024 10:[address] LIGHT SERVICER 10/08/2024 10:[address] LIGHT SERVICER Randell Corona MD LAB POCT ORDERABLES - DEVICE Final Result Performing Organization Address [facility] Co de Phone Number [facility] [place] [address] * POCT glucose (10/08/2024 7:[address] LIGHT SERVICER) Glucose, POC 118 70 - 199 mg/dL Blood 10/08/2024 7:[address] LIGHT SERVICER 10/08/2024 7:[address] LIGHT SERVICER Randell Corona MD LAB POCT ORDERABLES - DEVICE Final Result Performing Organization Address City/[facility]/ZIP Co de Phone Number [facility] [place] [address] * Critical Care (10/08/2024 6:[address] LIGHT SERVICER) Narrative Ivon Alvares MD - 10/08/2024 6:[address] LIGHT SERVICER Ivon Alvares MD 10/08/2024 6:04 PM Critical Care Performed by: Maged Bryant PA Authorized by: Maged Bryant PA CRITICAL CARE: Team: SICU BLUE Shift: AM Level of Billing: Critical Care My time spent with this patient was 90 minutes: Critical Provider Statement: I have seen and examined the patient on this day of service. I have reviewed and confirmed the history, physical exam, laboratory and radiologic data as documented in the signed ICU note. I have reviewed and discussed my treatment plan with the ICU team and other medical/applications sales consultant staff, making frequent assessments and decisions regarding this patient's complex medical care. Critical Care time was exclusive of time spent performing separately billed procedures, treating other patients, and teaching. This time was in addition to and separate from critical care provided by other practitioners in my group on this day of service. Critical Care was necessary to treat or prevent imminent or life-threatening deterioration of the following conditions: I spent time documenting in the medical record, I spent time discussing the management of this critically ill patient with consultants and the medical staff and I spent time reviewing and interpreting data from bedside monitors, laboratory results, and imaging us Maged DUMONT IN CLINIC/BEDSIDE ORDER SCOT Final Result * POCT glucose (10/08/2024 3:[address] LIGHT SERVICER) Glucose, POC 112 70 - 199 mg/dL Blood 10/08/2024 3:[address] LIGHT SERVICER 10/08/2024 3:[address] LIGHT SERVICER Randell Corona MD LAB POCT ORDERABLES - DEVICE Final Result [facility] [place] [address] * (ABNORMAL) CBC without differential (10/08/2024 1:[address] LIGHT SERVICER) WBC 9.3 3.8 - 9.9 K/cumm Hgb 10.1(L) 11.9 - 15.5 g/dL [facility] Hct 29.5(L) 35.6 - 45.5 % [facility] Plt 87(L) 150 - 400 K/cumm [facility] MPV 10.8 9.1 - 12.3 fL [facility] RBC 3.43(L) 3.90 - 5.20 M/cumm [facility] MCV 86.0 81.3 - 96.4 fL [facility] MCH 29.4 27.1 - 33.3 pg [facility] MCHC 34.2 32.3 - 35.7 g/dL [facility] RDW CV 15.2(H) 11.1 - 14.9 % [facility] RDW SD 47.6 35.7 - 48.1 fL [facility] NRBC abs 0.00 0.00 - 0.01 K/cumm [facility] Blood 10/08/2024 1:[address] LIGHT SERVICER 10/08/2024 2:[address] LIGHT SERVICER Sakshi Pena NP LAB BLOOD ORDER SCOT Final Result Performing Organization Address City/[facility]/ZIP Co de Phone Number [facility] Department [place] [address] * Transfuse RBC (10/08/2024 12:[address] LIGHT SERVICER) Blood Sakshi Pena NP BLOOD TRANSFUSI ON ORDERABLES Final Result [facility] Department [place] [address] * Lidocaine level (10/07/2024 11:[address] LIGHT SERVICER) Pathologist [facility] Lidocaine (Xylocaine) 2.3 1.5 - 5.0 mcg/mL Blood 10/07/2024 11:[address] LIGHT SERVICER 10/08/2024 12:[address] LIGHT SERVICER Narrative [facility] - 10/08/2024 1:[address] LIGHT SERVICER Draw 24 hours after infusion started. [place] LAB BLOOD ORDERABLE S Final Result Performing Organization Address City/[facility]/ZIP Co de Phone Number [facility] Department [place] [address] * POCT glucose (10/07/2024 11:[address] LIGHT SERVICER) Pathologist [facility] Glucose, POC 130 70 - 199 mg/dL Blood 10/07/2024 11:[address] LIGHT SERVICER 10/07/2024 11:[address] LIGHT SERVICER Randell Corona MD LAB POCT ORDERABLES - DEVICE Final Result Performing Organization Address [facility] Co de Phone Number [facility] Department [place] [address] * Prepare RBC: 1 Units (10/07/2024 10:[address] LIGHT SERVICER) [facility] Product code [id number] Unit Number [id number] [facility] Product Blood Type APOS [facility] Dispense Status PRESUMED TRANSFUSED [facility] Blood 10/07/2024 10:[address] LIGHT SERVICER 10/07/2024 10:[address] LIGHT SERVICER Narrative [facility] - 10/08/2024 4:[address] LIGHT SERVICER Are special requirements needed? (All products are leukoreduced and CMV- safe)- >No Date required:-[id number] LRRBC # of [id number] Reasons:-Hemorrhagic shock/Life-threatening bleeding} Sakshi Pena [employer] LASTER BLOOD BANK PROD UCT ORDERABLES Final Result Performing Organization Address [facility]/ZIP Co de Phone Number [facility] Department [place] [address] * (ABNORMAL) CBC without differential (10/07/2024 9:[address] LIGHT SERVICER) Pathologist [facility] WBC 8.2 3.8 - 9.9 K/cumm Hgb 8.7(L) 11.9 - 15.5 g/dL [facility] Hct 26.0(L) 35.6 - 45.5 % [facility] Plt 86(L) 150 - 400 K/cumm [facility] MPV 10.8 9.1 - 12.3 fL [facility] RBC 3.01(L) 3.90 - 5.20 M/cumm [facility] MCV 86.4 81.3 - 96.4 fL [facility] MCH 28.9 27.1 - 33.3 pg [facility] MCHC 33.5 32.3 - 35.7 g/dL [facility] RDW CV 15.5(H) 11.1 - 14.9 % [facility] RDW SD 48.7(H) 35.7 - 48.1 fL [facility] NRBC abs 0.00 0.00 - 0.01 K/cumm [facility] Blood 10/07/2024 9:[address] LIGHT SERVICER 10/07/2024 10:[address] LIGHT SERVICER Sakshi Pena NP LAB BLOOD ORDER SCOT Final Result [facility] Department [place] [address] * Critical Care (10/07/2024 9:[address] LIGHT SERVICER) Narrative Camelia Harper MD - 10/07/2024 9:[address] LIGHT SERVICER Camelia Harper MD 10/14/2024 11:56 PM Critical Care Performed by: Sakshi Pena NP Authorized by: Sakshi Pena NP CRITICAL CARE: Team: SICU BLUE Shift: PM Level of Billing: Subsequent Hospital Visit Level 3 My time spent with this patient was 90 minutes: Critical Provider Statement: I have seen and examined the patient on this day of service. I have reviewed and confirmed the history, physical exam, laboratory, and radiographic data as documented in the ICU note. I have reviewed and discussed my treatment plan with the patient's team and other medical/applications sales consultant staff. This time was in addition to and separate from care provided by other practitioners on this day of service. us Sakshi Pena NP IN CLINIC/BEDSI DE ORDERABLES Final Result * eGFR (10/07/2024 8:[address] LIGHT SERVICER) eGFR >90 >=60 mL/min/1. 73 m2 Comment: Interpretive Data Reference Interval Normal >/= 90 mL/min/1.73m2 Mildly decreased* 60 - 89 mL/min/1.73m2 Mildly to moderately decreased 45 - 59 mL/min/1.73m2 Moderately to severely decreased 30 - 44 mL/min/1.73m2 Severely decreased 15 - 29 mL/min/1.73m2 Kidney Failure < 15 mL/min/1.73m2 *Relative to young adult level Estimated glomerular filtration rate is determined by the 2020 CKD-EPI equation recommended by the National Kidney Foundation (A Unifying Approach to GFR Estimation: Recommendations of the NKF-ASK Task Force on Reassessing the Inclusion of Race in Diagnosing Kidney Disease, JASN 2020). The CKD-EPI equation should not be used for patients with unstable renal function and has not been validated in children and those over 70. Current interpretive data was last reviewed 2021. Blood 10/07/2024 8:[address] LIGHT SERVICER 10/07/2024 9:[address] LIGHT SERVICER us [place] LAB BLOOD ORDERABLE S Final Result [facility] [place] [address] * Differential, auto (10/07/2024 8:[address] LIGHT SERVICER) Neutrophil abs 6.5 1.5 - 6.5 K/cumm Imm gran abs 0.0 0.0 - 0.1 K/cumm [facility] Lymphocyte abs 0.8 0.8 - 3.3 K/cumm [facility] Monocyte abs 0.8 0.2 - 0.8 K/cumm [facility] Eosinophil abs 0.1 0.0 - 0.5 K/cumm [facility] Basophil abs 0.0 0.0 - 0.1 K/cumm [facility] Neutrophil pct 79.1 % [facility] Comment: Interpretive Data Percent cell count reference ranges are not reported, since discordance with absolute values may lead to misinterpretation of CBC data. Current Interpretive Data was last revised on 2017. Imm gran pct 0.4 % [facility] Comment: Interpretive Data Percent cell count reference ranges are not reported, since discordance with absolute values may lead to misinterpretation of CBC data. Current Interpretive Data was last revised on 2017. Lymphocyte pct 10.1 % [facility] Comment: Interpretive Data Percent cell count reference ranges are not reported, since discordance with absolute values may lead to misinterpretation of CBC data. Current Interpretive Data was last revised on 2017. Monocyte pct 9.6 % [facility] Comment: Interpretive Data Percent cell count reference ranges are not reported, since discordance with absolute values may lead to misinterpretation of CBC data. Current Interpretive Data was last revised on 2017. Eosinophil pct 0.6 % [facility] Comment: Interpretive Data Percent cell count reference ranges are not reported, since discordance with absolute values may lead to misinterpretation of CBC data. Current Interpretive Data was last revised on 2017. Basophil pct 0.2 % [facility] Comment: Interpretive Data Percent cell count reference ranges are not reported, since discordance with absolute values may lead to misinterpretation of CBC data. Current Interpretive Data was last revised on 2017. Blood 10/07/2024 8:[address] LIGHT SERVICER 10/07/2024 9:[address] LIGHT SERVICER [place] LAB BLOOD ORDERABLE S Final Result [facility] [place] [address] * (ABNORMAL) CBC with auto differential (10/07/2024 8:[address] LIGHT SERVICER) Pathologist [facility] WBC 8.2 3.8 - 9.9 K/cumm Hgb 8.7(L) 11.9 - 15.5 g/dL [facility] Hct 26.3(L) 35.6 - 45.5 % [facility] Plt 86(L) 150 - 400 K/cumm [facility] MPV 10.7 9.1 - 12.3 fL [facility] RBC 3.04(L) 3.90 - 5.20 M/cumm [facility] MCV 86.5 81.3 - 96.4 fL [facility] MCH 28.6 27.1 - 33.3 pg [facility] MCHC 33.1 32.3 - 35.7 g/dL [facility] RDW CV 15.4(H) 11.1 - 14.9 % [facility] RDW SD 48.6(H) 35.7 - 48.1 fL [facility] NRBC abs 0.00 0.00 - 0.01 K/cumm [facility] Blood 10/07/2024 8:[address] LIGHT SERVICER 10/07/2024 9:[address] LIGHT SERVICER [place] LAB BLOOD ORDERABLE S Final Result [facility] [place] [address] * (ABNORMAL) Phosphorus (10/07/2024 8:[address] LIGHT SERVICER) Phosphorus, pl 1.5(L) 2.3 - 4.5 mg/dL Blood 10/07/2024 8:[address] LIGHT SERVICER 10/07/2024 9:[address] LIGHT SERVICER [place] LAB BLOOD ORDERABLE S Final Result Performing Organization Address City/[facility]/ZIP Co de Phone Number [facility] [place] [address] * Magnesium (10/07/2024 8:[address] LIGHT SERVICER) Pathologist [facility] Magnesium 1.9 1.4 - 2.5 mg/dL Blood 10/07/2024 8:[address] LIGHT SERVICER 10/07/2024 9:[address] LIGHT SERVICER [place] LAB BLOOD ORDERABLE S Final Result Performing Organization Address [facility] de Phone Number [facility] Department [place] [address] * (ABNORMAL) Basic metabolic panel (10/07/2024 8:[address] LIGHT SERVICER) [facility] Sodium 136 135 - 145 mmol/L Potassium, pl 3.9 3.3 - 4.9 mmol/L [facility] Chloride 102 97 - 110 mmol/L [facility] CO2 26 22 - 32 mmol/L [facility] Anion gap 8 2 - 15 mmol/L [facility] BUN 13 6 - 25 mg/dL [facility] Creatinine 0.45(L) 0.60 - 1.10 mg/dL [facility] Glucose 123 70 - 199 mg/dL [facility] Comment: Interpretive Data Fasting glucose >/= 126 mg/dl is diagnostic for diabetes. Fasting is defined as no caloric intake for at least 8 hours. Fasting glucose between 100 mg/dl to 125 mg/dl is diagnostic of prediabetes. In a patient with classic symptoms of hyperglycemia or hyperglycemic crisis, a random glucose >/= 200 mg/dl is diagnostic for diabetes. In the absence of unequivocal hyperglycemia, results should be confirmed by repeat testing. The classification and Diagnosis of Diabetes Diabetes Care 2021; 46: S19-S40. Current interpretive data was last revised 2022. Calcium 8.0(L) 8.5 - 10.3 mg/dL [facility] Blood 10/07/2024 8:[address] LIGHT SERVICER 10/07/2024 9:[address] LIGHT SERVICER [place] DUM[place] LAB BLOOD ORDERABLE S Final Result Performing Organization Address [facility] Co de Phone Number [facility] [place] [address] * POCT glucose (10/07/2024 8:[address] LIGHT SERVICER) Glucose, POC 129 70 - 199 mg/dL Blood 10/07/2024 8:[address] LIGHT SERVICER 10/07/2024 8:[address] LIGHT SERVICER Randell Corona MD LAB POCT ORDERABLES - DEVICE Final Result Performing Organization Address [facility] de Phone Number [facility] [place] [address] * POCT glucose (10/07/2024 3:[address] LIGHT SERVICER) Glucose, POC 130 70 - 199 mg/dL Blood 10/07/2024 3:[address] LIGHT SERVICER 10/07/2024 3:[address] LIGHT SERVICER Randell Corona MD LAB POCT ORDERABLES - DEVICE Final Result Performing Organization Address [facility] de Phone Number [facility] [place] [address] * (ABNORMAL) Lidocaine level (10/07/2024 12:[address] LIGHT SERVICER) Lidocaine (Xylocaine) <1.0(L) 1.5 - 5.0 mcg/mL Blood 10/07/2024 12:[address] LIGHT SERVICER 10/07/2024 1:[address] LIGHT SERVICER Randell Corona MD LAB BLOOD ORDERABLES Final Result Performing Organization Address [facility] Co de Phone Number [facility] [place] [address] * POCT glucose (10/07/2024 11:[address] LIGHT SERVICER) Glucose, POC 118 70 - 199 mg/dL Blood 10/07/2024 11:[address] LIGHT SERVICER 10/07/2024 11:[address] LIGHT SERVICER Randell Corona MD LAB POCT ORDERABLES - DEVICE Final Result Performing Organization Address [facility] Phone Number [facility] [place] [address] * ECG 12 lead (10/07/2024 9:[address] LIGHT SERVICER) Ventricular Rate EKG/Min 77 BPM [facility] QRS-Interval (MSEC) 86 ms [facility] QT-Interval (MSEC) 404 ms [facility] QTc 457 ms [facility] R [place] 27 degrees [facility] T [place] 57 degrees [facility] Diagnosis Atrial fibrillation Abnormal ECG Confirmed by Carmel ALLISON, [facility] ([id number]) on 10/15/2024 5:18:00 AM [facility] 10/07/2024 9:[address] LIGHT SERVICER 10/15/2024 5:[address] LIGHT SERVICER Moises Orellana [employer] ECG ORDERABLES Monie l Result Performing Organization Address [facility]/ZIP Co de Phone Number [facility] * POCT glucose (10/07/2024 7:[address] LIGHT SERVICER) Glucose, POC 138 70 - 199 mg/dL Blood 10/07/2024 7:[address] LIGHT SERVICER 10/07/2024 7:[address] LIGHT SERVICER Randell Corona MD LAB POCT ORDERABLES - DEVICE Final Result [facility] [place] [address] * Critical Care (10/07/2024 7:[address] LIGHT SERVICER) Narrative Ivon Alvares MD - 10/07/2024 7:[address] LIGHT SERVICER Ivon Alvares MD 10/08/2024 3:03 PM Critical Care Performed by: Maged Bryant PA Authorized by: Maged Bryant PA CRITICAL CARE: Team: SICU BLUE Shift: AM Level of Billing: Critical Care My time spent with this patient was 120 minutes: Critical Provider Statement: I have seen and examined the patient on this day of service. I have reviewed and confirmed the history, physical exam, laboratory and radiologic data as documented in the signed ICU note. I have reviewed and discussed my treatment plan with the ICU team and other medical/applications sales consultant staff, making frequent assessments and decisions regarding this patient's complex medical care. Critical Care time was exclusive of time spent performing separately billed procedures, treating other patients, and teaching. This time was in addition to and separate from critical care provided by other practitioners in my group on this day of service. Critical Care was necessary to treat or prevent imminent or life-threatening deterioration of the following conditions: I spent time documenting in the medical record, I spent time discussing the management of this critically ill patient with consultants and the medical staff and I spent time reviewing and interpreting data from bedside monitors, laboratory results, and imaging Maged [facility] IN CLINIC/BEDSIDE ORDER SCOT Final Result * Lactate, whole blood (10/07/2024 6:[address] LIGHT SERVICER) Lactate, bld 1.1 0.7 - 2.0 mmol/L Blood 10/07/2024 6:[address] LIGHT SERVICER 10/07/2024 7:[address] LIGHT SERVICER [place] DUMONT LAB BLOOD ORDERABLE S Final Result Performing Organization Address [facility] de Phone Number [facility] [place] [address] * (ABNORMAL) CBC without differential (10/07/2024 6:[address] LIGHT SERVICER) WBC 11.0(H) 3.8 - 9.9 K/cumm Hgb 10.3(L) 11.9 - 15.5 g/dL [facility] Hct 31.4(L) 35.6 - 45.5 % [facility] Plt 120(L) 150 - 400 K/cumm [facility] MPV 10.8 9.1 - 12.3 fL [facility] RBC 3.60(L) 3.90 - 5.20 M/cumm [facility] MCV 87.2 81.3 - 96.4 fL [facility] MCH 28.6 27.1 - 33.3 pg [facility] MCHC 32.8 32.3 - 35.7 g/dL [facility] RDW CV 15.5(H) 11.1 - 14.9 % [facility] RDW SD 49.8(H) 35.7 - 48.1 fL [facility] NRBC abs 0.00 0.00 - 0.01 K/cumm [facility] Blood 10/07/2024 6:[address] LIGHT SERVICER 10/07/2024 7:[address] LIGHT SERVICER [place] D[facility] LAB BLOOD ORDERABLE S Final Result Performing Organization Address [facility]/ZIP Co de Phone Number [facility] [place] [address] * POCT glucose (10/07/2024 3:[address] LIGHT SERVICER) Glucose, POC 140 70 - 199 mg/dL Blood 10/07/2024 3:[address] LIGHT SERVICER 10/07/2024 3:[address] LIGHT SERVICER Randell Corona MD LAB POCT ORDERABLES - DEVICE Final Result Performing Organization Address City/[facility]/ZIP Co de Phone Number [facility]RY CATALAN [facility] [place] [address] * POCT glucose (10/06/2024 11:[address] LIGHT SERVICER) Glucose, POC 128 70 - 199 mg/dL Blood 10/06/2024 11:[address] LIGHT SERVICER 10/06/2024 11:[address] LIGHT SERVICER Randell Corona MD LAB POCT ORDERABLES - DEVICE Final Result Performing Organization Address [facility] Co de Phone Number [facility] Department [place] [address] * Critical Care (10/06/2024 9:[address] LIGHT SERVICER) Narrative Camelia Harper MD - 10/06/2024 9:[address] LIGHT SERVICER Camelia Harper MD 10/14/2024 11:49 PM Critical Care Performed by: [place] Jeffery PA Authorized by: [place] Jeffery PA CRITICAL CARE: Team: SICU BLUE Shift: PM Level of Billing: Critical Care My time spent with this patient was 90 minutes: Critical Provider Statement: I have seen and examined the patient on this day of service. I have reviewed and confirmed the history, physical exam, laboratory and radiologic data as documented in the signed ICU note. I have reviewed and discussed my treatment plan with the ICU team and other medical/applications sales consultant staff, making frequent assessments and decisions regarding this patient's complex medical care. Critical Care time was exclusive of time spent performing separately billed procedures, treating other patients, and teaching. This time was in addition to and separate from critical care provided by other practitioners in my group on this day of service. Critical Care was necessary to treat or prevent imminent or life-threatening deterioration of the following conditions: I spent time reviewing and interpreting data from bedside monitors, laboratory results, and imaging, I spent time discussing the management of this critically ill patient with consultants and the medical staff and I spent time documenting in the medical record [place] [facility] IN [facility]INIC/BEDSIDE O RDERABLES Final Result * eGFR (10/06/2024 9:[address] LIGHT SERVICER) Pathologist [facility] eGFR >90 >=60 mL/min/1. 73 m2 Comment: Interpretive Data Reference Interval Normal >/= 90 mL/min/1.73m2 Mildly decreased* 60 - 89 mL/min/1.73m2 Mildly to moderately decreased 45 - 59 mL/min/1.73m2 Moderately to severely decreased 30 - 44 mL/min/1.73m2 Severely decreased 15 - 29 mL/min/1.73m2 Kidney Failure < 15 mL/min/1.73m2 *Relative to young adult level Estimated glomerular filtration rate is determined by the 2020 CKD-EPI equation recommended by the National Kid[employer] (A Unifying Approach to GFR Estimation: Recommendations of the NKF-ASK Task Force on Reassessing the Inclusion of Race in Diagnosing Kidney Disease, JASN 2020). The CKD-EPI equation should not be used for patients with unstable renal function and has not been validated in children and those over 70. Current interpretive data was last reviewed 2021. Blood 10/06/2024 9:[address] LIGHT SERVICER 10/06/2024 9:[address] LIGHT SERVICER [place] D[facility] LAB BLOOD ORDERABLE S Final Result [facility] [place] [address] * (ABNORMAL) Differential, auto (10/06/2024 9:[address] LIGHT SERVICER) Pathologist [facility] Neutrophil abs 7.3(H) 1.5 - 6.5 K/cumm Imm gran abs 0.0 0.0 - 0.1 K/cumm [facility] Lymphocyte abs 0.6(L) 0.8 - 3.3 K/cumm [facility] Monocyte abs 0.7 0.2 - 0.8 K/cumm [facility] Eosinophil abs 0.0 0.0 - 0.5 K/cumm [facility] Basophil abs 0.0 0.0 - 0.1 K/cumm [facility] Neutrophil pct 84.2 % [facility] [place] [facility] Comment: Interpretive Data Percent cell count reference ranges are not reported, since discordance with absolute values may lead to misinterpretation of CBC data. Current Interpretive Data was last revised on 2017. Imm gran pct 0.1 % [facility] [place] Comment: Interpretive Data Percent cell count reference ranges are not reported, since discordance with absolute values may lead to misinterpretation of CBC data. Current Interpretive Data was last revised on 2017. Lymphocyte pct 6.8 % [facility] Comment: Interpretive Data Percent cell count reference ranges are not reported, since discordance with absolute values may lead to misinterpretation of CBC data. Current Interpretive Data was last revised on 2017. Monocyte pct 8.6 % [facility] Comment: Interpretive Data Percent cell count reference ranges are not reported, since discordance with absolute values may lead to misinterpretation of CBC data. Current Interpretive Data was last revised on 2017. Eosinophil pct 0.1 % [facility] Comment: Interpretive Data Percent cell count reference ranges are not reported, since discordance with absolute values may lead to misinterpretation of CBC data. Current Interpretive Data was last revised on 2017. Basophil pct 0.2 % [facility] Comment: Interpretive Data Percent cell count reference ranges are not reported, since discordance with absolute values may lead to misinterpretation of CBC data. Current Interpretive Data was last revised on 2017. Blood 10/06/2024 9:[address] LIGHT SERVICER 10/06/2024 9:[address] LIGHT SERVICER us [place] D[facility] LAB BLOOD ORDERABLE S Final Result [facility]RY CATALAN [facility] [place] [address] * (ABNORMAL) CBC with auto differential (10/06/2024 9:[address] LIGHT SERVICER) WBC 8.6 3.8 - 9.9 K/cumm Hgb 10.4(L) 11.9 - 15.5 g/dL [facility] Hct 30.2(L) 35.6 - 45.5 % [facility] Plt 100(L) 150 - 400 K/cumm [facility] MPV 10.5 9.1 - 12.3 fL [facility] RBC 3.58(L) 3.90 - 5.20 M/cumm [facility] MCV 84.4 81.3 - 96.4 fL [facility] MCH 29.1 27.1 - 33.3 pg [facility] MCHC 34.4 32.3 - 35.7 g/dL [facility] RDW CV 15.0(H) 11.1 - 14.9 % [facility] RDW SD 46.4 35.7 - 48.1 fL [facility] NRBC abs 0.00 0.00 - 0.01 K/cumm [facility] Blood 10/06/2024 9:[address] LIGHT SERVICER 10/06/2024 9:[address] LIGHT SERVICER [place] Jeffery PA LAB BLOOD ORDERABLE S Final Result Performing Organization Address [facility] de Phone Number [facility] [place] [address] * (ABNORMAL) aPTT (10/06/2024 9:[address] LIGHT SERVICER) aPTT 27(L) 28 - 38 sec Comment: Interpretive Data Heparin therapeutic range: 66.0 - 100.0 seconds. Range based on correlation with therapeutic heparin activity range of 0.3 - 0.7 Units/mL. Current interpretive data was last revised on 2023. Blood 10/06/2024 9:[address] LIGHT SERVICER 10/06/2024 9:[address] LIGHT SERVICER us Geni Beltran [employer] LAB BLOOD ORDERABLES Monie l Result Performing Organization Address City/[facility] Co de Phone Number [facility] [place] [address] * Protime-INR (10/06/2024 9:[address] LIGHT SERVICER) Pathologist [facility] PT 11.5 9.7 - 13.0 sec INR 1.06 0.90 - 1.20 [facility] Comment: Interpretive data Oral anticoagulant therapeutic ranges: Venous thromboembolism prophylaxis or treatment: 2.0-3.0 CARDIOLOGY Standard range: 2.0-3.0 High-intensity range: 2.5-3.5 Refer to indication-specific guidelines for appropriate target ranges for prosthetic heart valve replacement. Current interpretive data was last revised on 2019. Blood 10/06/2024 9:[address] LIGHT SERVICER 10/06/2024 9:[address] LIGHT SERVICER Geni Beltran [employer] LAB BLOOD ORDERABLES Monie l Result Performing Organization Address City/[facility]/ZIP Co de Phone Number [facility] [place] [address] * (ABNORMAL) Phosphorus (10/06/2024 9:[address] LIGHT SERVICER) [facility] Phosphorus, pl 1.9(L) 2.3 - 4.5 mg/dL Blood 10/06/2024 9:[address] LIGHT SERVICER 10/06/2024 9:[address] LIGHT SERVICER Result [facility] [place] Jeffery PA LAB BLOOD ORDER[place] [address] * Magnesium (10/06/2024 9:[address] LIGHT SERVICER) [facility] Magnesium 2.1 1.4 - 2.5 mg/dL Blood 10/06/2024 9:[address] LIGHT SERVICER 10/06/2024 9:[address] LIGHT SERVICER [place] DUMONT LAB BLOOD ORDERABLE S Final Result [facility] Department [place] [address] * (ABNORMAL) Basic metabolic panel (10/06/2024 9:[address] LIGHT SERVICER) Sodium 134(L) 135 - 145 mmol/L Potassium, pl 4.0 3.3 - 4.9 mmol/L [facility] Chloride 102 97 - 110 mmol/L [facility] CO2 26 22 - 32 mmol/L [facility] Anion gap 6 2 - 15 mmol/L [facility] BUN 16 6 - 25 mg/dL [facility] Creatinine 0.43(L) 0.60 - 1.10 mg/dL [facility] Glucose 139 70 - 199 mg/dL [facility] Comment: Interpretive Data Fasting glucose >/= 126 mg/dl is diagnostic for diabetes. Fasting is defined as no caloric intake for at least 8 hours. Fasting glucose between 100 mg/dl to 125 mg/dl is diagnostic of prediabetes. In a patient with classic symptoms of hyperglycemia or hyperglycemic crisis, a random glucose >/= 200 mg/dl is diagnostic for diabetes. In the absence of unequivocal hyperglycemia, results should be confirmed by repeat testing. The classification and Diagnosis of Diabetes Diabetes Care 202; 46: S19-S40. Current interpretive data was last revised 2022. Calcium 7.9(L) 8.5 - 10.3 mg/dL [facility] Blood 10/06/2024 9:[address] LIGHT SERVICER 10/06/2024 9:[address] LIGHT SERVICER [place] DUM[place] LAB BLOOD ORDERABLE S Final Result Performing Organization Address City/[facility]/ZIP Co de Phone Number [facility]RY CATALAN [facility] [place] [address] * POCT glucose (10/06/2024 7:[address] LIGHT SERVICER) Glucose, POC 149 70 - 199 mg/dL Blood 10/06/2024 7:[address] LIGHT SERVICER 10/06/2024 7:[address] LIGHT SERVICER Randell Corona MD LAB POCT ORDERABLES - DEVICE Final Result Performing Organization Address [facility] Co de Phone Number [facility] [place] [address] * Neuro CT Outside Reference (10/06/2024 5:[address] LIGHT SERVICER) Impressions RAD_PACS_[facility] - 10/06/2024 5:[address] LIGHT SERVICER These images are for Reference purposes only and have not been reviewed by [facility] Radiology. There will be no report generated by a [facility] Radiologist. Narrative RAD_PACS_[facility] - 10/06/2024 5:[address] LIGHT SERVICER EXAMINATION: Images For Reference Purposes Only Randell Corona MD IMG CT PROCEDURES Fi nal Result Performing Organization Address [facility] de Phone Number [email or web address] * Neuro CT Outside Reference (10/06/2024 5:[address] LIGHT SERVICER) Impressions [facility]_PACS_[facility] - 10/06/2024 5:[address] LIGHT SERVICER These images are for Reference purposes only and have not been reviewed by [facility] Radiology. There will be no report generated by a [facility] Radiologist. Narrative RAD_PACS_[facility] - 10/06/2024 5:[address] LIGHT SERVICER EXAMINATION: Images For Reference Purposes Only Randell Corona MD IMG CT PROCEDURES Fi nal Result Performing Organization Address [facility] de Phone Number [email or web address] * XR Abdomen Ap 1 Vw (10/06/2024 1:[address] LIGHT SERVICER) Anatomical Region Laterality Modality Body, Abdomen N/A Digital Radiogra phy 10/06/2024 2:[address] LIGHT SERVICER Impressions 10/06/2024 2:[address] LIGHT SERVICER Gastric tube tip overlies the gastric body with side port over the gastric body. Increased gaseous distention of the stomach. Posterior fusion changes. Dictated by: Mustapha Mclaughlin MD PHD The radiology attending physician has personally reviewed this study, and had reviewed and/or edited this written report and agrees with it. Electronically signed by: Shavonne Sands M.D. Narrative 10/06/2024 2:[address] LIGHT SERVICER EXAMINATION: Abdomen, one view. HISTORY: Ileus COMPARISON: 10/06/2024 at 12:31 AM Procedure Note Shavonne Sands MD - 10/06/2024 EXAMINATION: Abdomen, one view. HISTORY: Ileus COMPARISON: 10/06/2024 at 12:31 AM IMPRESSION: Gastric tube tip overlies the gastric body with side port over the gastric body. Increased gaseous distention of the stomach. Posterior fusion changes. Dictated by: Mustapha Mclaughlin MD PHD The radiology attending physician has personally reviewed this study, and had reviewed and/or edited this written report and agrees with it. Electronically signed by: Shavonne Sands M.D. us Maged DUMONT IMG XR PROCEDURES Final Result * POCT glucose (10/06/2024 11:[address] LIGHT SERVICER) Glucose, POC 139 70 - 199 mg/dL Blood 10/06/2024 11:[address] LIGHT SERVICER 10/06/2024 11:[address] LIGHT SERVICER us Randell Corona MD LAB POCT ORDERABLES - DEVICE Final Result [facility] [place] [address] * Critical Care (10/06/2024 7:[address] LIGHT SERVICER) Narrative Ivon Alvares MD - 10/06/2024 7:[address] LIGHT SERVICER Ivon Alvares MD 10/08/2024 3:02 PM Critical Care Performed by: Maged Bryant PA Authorized by: Maged Bryant PA CRITICAL CARE: Team: SICU BLUE Shift: AM Level of Billing: Critical Care My time spent with this patient was 120 minutes: Critical Provider Statement: I have seen and examined the patient on this day of service. I have reviewed and confirmed the history, physical exam, laboratory and radiologic data as documented in the signed ICU note. I have reviewed and discussed my treatment plan with the ICU team and other medical/applications sales consultant staff, making frequent assessments and decisions regarding this patient's complex medical care. Critical Care time was exclusive of time spent performing separately billed procedures, treating other patients, and teaching. This time was in addition to and separate from critical care provided by other practitioners in my group on this day of service. Critical Care was necessary to treat or prevent imminent or life-threatening deterioration of the following conditions: I spent time documenting in the medical record, I spent time discussing the management of this critically ill patient with consultants and the medical staff and I spent time reviewing and interpreting data from bedside monitors, laboratory results, and imaging us Maged [facility] IN CLINIC/BEDSIDE ORDER SCOT Final Result * POCT glucose (10/06/2024 7:[address] LIGHT SERVICER) Glucose, POC 114 70 - 199 mg/dL Blood 10/06/2024 7:[address] LIGHT SERVICER 10/06/2024 7:[address] LIGHT SERVICER Randell Corona MD LAB POCT ORDERABLES - DEVICE Final Result Performing Organization Address City/State/[facility] Co de Phone Number [facility] Department [place] [address] * ECG 12 lead (10/06/2024 6:[address] LIGHT SERVICER) Ventricular Rate EKG/Min 53 BPM [facility] Atrial Rate 53 BPM [facility] QRS-Interval (MSEC) 82 ms [facility] QT-Interval (MSEC) 514 ms [facility] QTc 482 ms [facility] R [place] 30 degrees [facility] T [place] 61 degrees [facility] Diagnosis Sinus bradycardia Abnormal ECG Confirmed by Annamaria Burt MD ([id number]) on 10/06/2024 9:18:23 AM [facility] 10/06/2024 6:[address] LIGHT SERVICER 10/06/2024 9:[address] LIGHT SERVICER us [place] DUMONT ECG ORDERABLES Fin al Result [facility] * POCT glucose (10/06/2024 3:[address] LIGHT SERVICER) [facility] Glucose, POC 139 70 - 199 mg/dL Blood 10/06/2024 3:[address] LIGHT SERVICER 10/06/2024 3:[address] LIGHT SERVICER Randell Corona MD LAB POCT ORDERABLES - DEVICE Final Result Performing Organization Address City/[facility]/ZIP Co de Phone Number [facility] [place] [address] * (ABNORMAL) CBC without differential (10/06/2024 2:[address] LIGHT SERVICER) [facility] WBC 7.0 3.8 - 9.9 K/cumm Hgb 11.6(L) 11.9 - 15.5 g/dL [facility] Hct 33.6(L) 35.6 - 45.5 % [facility] Plt 121(L) 150 - 400 K/cumm [facility] MPV 10.0 9.1 - 12.3 fL [facility] RBC 4.05 3.90 - 5.20 M/cumm [facility] MCV 83.0 81.3 - 96.4 fL [facility] MCH 28.6 27.1 - 33.3 pg [facility] MCHC 34.5 32.3 - 35.7 g/dL [facility] RDW CV 14.6 11.1 - 14.9 % [facility] RDW SD 44.2 35.7 - 48.1 fL [facility] NRBC abs 0.00 0.00 - 0.01 K/cumm [facility] Blood 10/06/2024 2:[address] LIGHT SERVICER 10/06/2024 2:[address] LIGHT SERVICER [place] DUMONT LAB BLOOD ORDERABLE S Final Result [facility] [place] [address] * XR Abdomen 1 View AP (10/06/2024 12:[address] LIGHT SERVICER) Anatomical Region Laterality Modality Body, Abdomen N/A Digital Radiogra phy 10/06/2024 9:[address] LIGHT SERVICER Impressions 10/06/2024 4:[address] LIGHT SERVICER 10/05/2024 at 10:52 PM: Gastric tube loops over the body of the stomach with tip overlying the gastric cardia. Diffuse gaseous distention of small and large bowel compatible with mild ileus. Posterior fusion changes. 10/06/2024 at 12:31 AM: Repositioned gastric tube with tip overlying the fundus and side port overlying the fundus body junction. Dictated by: Mustapha Mclaughlin MD PHD The radiology attending physician has personally reviewed this study, and had reviewed and/or edited this written report and agrees with it. Electronically signed by: Shaq Ashley M.D. Narrative 10/06/2024 4:[address] LIGHT SERVICER EXAMINATION: Abdomen, one view. HISTORY: Check tube placement. COMPARISON: None Procedure Note Shaq Ashley MD - 10/06/2024 EXAMINATION: Abdomen, one view. HISTORY: Check tube placement. COMPARISON: None IMPRESSION: 10/05/2024 at 10:52 PM: Gastric tube loops over the body of the stomach with tip overlying the gastric cardia. Diffuse gaseous distention of small and large bowel compatible with mild ileus. Posterior fusion changes. 10/06/2024 at 12:31 AM: Repositioned gastric tube with tip overlying the fundus and side port overlying the fundus body junction. Dictated by: Mustapha Mclaughlin MD PHD The radiology attending physician has personally reviewed this study, and had reviewed and/or edited this written report and agrees with it. Electronically signed by: Shaq Ashley M.D. us [place] [facility] IMG XR PROCEDURES F inal Result * POCT glucose (10/05/2024 11:[address] LIGHT SERVICER) Glucose, POC 181 70 - 199 mg/dL Blood 10/05/2024 11:[address] LIGHT SERVICER 10/05/2024 11:[address] LIGHT SERVICER Randell Corona MD LAB POCT ORDERABLES - DEVICE Final Result [facility] [place] [address] * XR Abdomen 1 View AP (10/05/2024 10:[address] LIGHT SERVICER) Anatomical Region Laterality Modality Body, Abdomen N/A Digital Radiogra phy 10/06/2024 9:[address] LIGHT SERVICER Impressions 10/06/2024 4:[address] LIGHT SERVICER 10/05/2024 at 10:52 PM: Gastric tube loops over the body of the stomach with tip overlying the gastric cardia. Diffuse gaseous distention of small and large bowel compatible with mild ileus. Posterior fusion changes. 10/06/2024 at 12:31 AM: Repositioned gastric tube with tip overlying the fundus and side port overlying the fundus body junction. Dictated by: Mustapha Mclaughlin MD PHD The radiology attending physician has personally reviewed this study, and had reviewed and/or edited this written report and agrees with it. Electronically signed by: Shaq Ashley M.D. Narrative 10/06/2024 4:[address] LIGHT SERVICER EXAMINATION: Abdomen, one view. HISTORY: Check tube placement. COMPARISON: None Procedure Note Shaq Ashley MD - 10/06/2024 EXAMINATION: Abdomen, one view. HISTORY: Check tube placement. COMPARISON: None IMPRESSION: 10/05/2024 at 10:52 PM: Gastric tube loops over the body of the stomach with tip overlying the gastric cardia. Diffuse gaseous distention of small and large bowel compatible with mild ileus. Posterior fusion changes. 10/06/2024 at 12:31 AM: Repositioned gastric tube with tip overlying the fundus and side port overlying the fundus body junction. Dictated by: Mustapha Mclauhglin MD PHD The radiology attending physician has personally reviewed this study, and had reviewed and/or edited this written report and agrees with it. Electronically signed by: Shaq Ashley M.D. us [place] DUMONT IMG XR PROCEDURES F inal Result * Critical Care (10/05/2024 10:[address] LIGHT SERVICER) Narrative Camelia Harper MD - 10/05/2024 10:[address] LIGHT SERVICER Camelia Harper MD 10/14/2024 11:50 PM Critical Care Performed by: Virginia Jeffery PA Authorized by: Virginia Jeffery PA CRITICAL CARE: Team: SICU BLUE Shift: PM Level of Billing: Critical Care My time spent with this patient was 100 minutes: Critical Provider Statement: I have seen and examined the patient on this day of service. I have reviewed and confirmed the history, physical exam, laboratory and radiologic data as documented in the signed ICU note. I have reviewed and discussed my treatment plan with the ICU team and other medical/applications sales consultant staff, making frequent assessments and decisions regarding this patient's complex medical care. Critical Care time was exclusive of time spent performing separately billed procedures, treating other patients, and teaching. This time was in addition to and separate from critical care provided by other practitioners in my group on this day of service. Critical Care was necessary to treat or prevent imminent or life-threatening deterioration of the following conditions: I spent time reviewing and interpreting data from bedside monitors, laboratory results, and imaging, I spent time discussing the management of this critically ill patient with consultants and the medical staff and I spent time documenting in the medical record us [place] DUMONT IN CLINIC/BEDSIDE O RDERABLES Final Result * COVID-19 Coronavirus RNA Nasopharyngeal (10/05/2024 10:[address] LIGHT SERVICER) [facility] COVID-19 RNA Negative Negative [facility] Nasopharyngeal 10/05/2024 10 :[address] LIGHT SERVICER 10/05/2024 11:[address] LIGHT SERVICER Narrative [facility] - 10/06/2024 12:[address] LIGHT SERVICER Is the patient experiencing any symptoms consistent with COVID (eg. Fever, cough, shortness of breath)?->No What is the reason for testing?->Screening for semi-private room placement Interpretive data Testing performed by [facility] ([phone]). This test is performed using the [employer] Pro Xpert Xpress CoV-2 plus assay. This is a real-time RT-PCR test intended for the qualitative detection of nucleic acid from the SARS-CoV-2. This assay has been cleared by the [place] Food and Drug administration. The performance characteristics have been verified by the [facility]. Results must be considered in the clinical context, and a negative result does not rule out infection. Interpretive data last revised 2024. Randell Corona MD LAB MICROBIOLOGY - G ENERAL ORDERABLES Final Result [facility] [place] [address] [facility] * Lactate, whole blood (10/05/2024 10:[address] LIGHT SERVICER) [facility] Lactate, bld 1.7 0.7 - 2.0 mmol/L Blood 10/05/2024 10:[address] LIGHT SERVICER 10/05/2024 10:[address] LIGHT SERVICER us [place] DUMONT LAB BLOOD ORDERABLE S Final Result [facility] [place] [address] * aPTT (10/05/2024 10:[address] LIGHT SERVICER) aPTT 28 28 - 38 sec Comment: Interpretive Data Heparin therapeutic range: 66.0 - 100.0 seconds. Range based on correlation with therapeutic heparin activity range of 0.3 - 0.7 Units/mL. Current interpretive data was last revised on 2023. Blood 10/05/2024 10:[address] LIGHT SERVICER 10/05/2024 10:[address] LIGHT SERVICER [facility] [place] LAB BLOOD ORDERABLE S Final Result Performing Organization Address [facility] de Phone Number [facility] [place] [address] * Protime-INR (10/05/2024 10:[address] LIGHT SERVICER) Pathologist [facility] PT 12.4 9.7 - 13.0 sec INR 1.14 0.90 - 1.20 [facility] Comment: Interpretive data Oral anticoagulant therapeutic ranges: Venous thromboembolism prophylaxis or treatment: 2.0-3.0 CARDIOLOGY Standard range: 2.0-3.0 High-intensity range: 2.5-3.5 Refer to indication-specific guidelines for appropriate target ranges for prosthetic heart valve replacement. Current interpretive data was last revised on 2019. Blood 10/05/2024 10:[address] LIGHT SERVICER 10/05/2024 10:[address] LIGHT SERVICER [place] Jeff[place] LAB BLOOD ORDERABLE S Final Result Performing Organization Address [facility] de Phone Number [facility] [employer] [place] [address] * Type and screen (10/05/2024 10:[address] LIGHT SERVICER) Pathologist [facility], indirect Negative ABO Rh A Positive [facility] Blood 10/05/2024 10:[address] LIGHT SERVICER 10/05/2024 11:[address] LIGHT SERVICER Narrative [facility] - 10/06/2024 12:[address] LIGHT SERVICER Has the patient had Daratumumab or Isatuximab in the past 6 months?->Unknown [place] DUMONT LAB BLOOD BANK TEST ORDERABLES Final Result Performing Organization Address [facility] Co de Phone Number [facility] [place] [address] * (ABNORMAL) Blood gas, arterial (10/05/2024 10:[address] LIGHT SERVICER) pH, Art 7.47(H) 7.35 - 7.45 PCO2, Arterial 29(L) 35 - 45 mmHg [facility] PO2, Arterial 188(H) 83 - 108 mmHg [facility] HCO3 Art (Calculated) 22 20 - 30 mmol/L [facility] BE, art -1 mmol/L [facility] Comment: Interpretive Data No Reference Range Established Current Interpretive Data was last revised on 2017 O2 Sat Art (Measured) 100(H) 90 - 95 % [facility] Blood 10/05/2024 10:[address] LIGHT SERVICER 10/05/2024 10:[address] LIGHT SERVICER [place] DUMONT LAB BLOOD ORDERABLE S Final Result Performing Organization Address [facility] de Phone Number [facility] [place] [address] * XR Chest 1 View (10/05/2024 8:[address] LIGHT SERVICER) Anatomical Region Laterality Modality Body, Chest N/A Digital Radiogra phy 10/06/2024 8:[address] LIGHT SERVICER Impressions 10/06/2024 8:[address] LIGHT SERVICER No prior chest radiographs are available for comparison. Endotracheal tube tip is 4 cm above the sivakumar. Right subclavian central venous catheter tip projects over the superior cavoatrial junction. Drainage catheters project over the chest, likely posterior and related to spinal fusion instrumentation and corpectomy changes. The lungs are hyperexpanded. Biapical scarring is present. There is no pneumonic consolidation or pleural effusion. No pneumothorax. Heart size is within normal limits. Electronically signed by: Mor Goodman MD, PHD Narrative 10/06/2024 8:[address] LIGHT SERVICER EXAMINATION: 1 view chest radiograph Procedure Note Mor Goodman MD PhD - 10/06/2024 EXAMINATION: 1 view chest radiograph IMPRESSION: No prior chest radiographs are available for comparison. Endotracheal tube tip is 4 cm above the sivakumar. Right subclavian central venous catheter tip projects over the superior cavoatrial junction. Drainage catheters project over the chest, likely posterior and related to spinal fusion instrumentation and corpectomy changes. The lungs are hyperexpanded. Biapical scarring is present. There is no pneumonic consolidation or pleural effusion. No pneumothorax. Heart size is within normal limits. Electronically signed by: Mor Goodman MD, PHD Gregg Rocha MD IMG XR PROCEDURES Final Result * eGFR (10/05/2024 8:[address] LIGHT SERVICER) eGFR >90 >=60 mL/min/1. 73 m2 Comment: Interpretive Data Reference Interval Normal >/= 90 mL/min/1.73m2 Mildly decreased* 60 - 89 mL/min/1.73m2 Mildly to moderately decreased 45 - 59 mL/min/1.73m2 Moderately to severely decreased 30 - 44 mL/min/1.73m2 Severely decreased 15 - 29 mL/min/1.73m2 Kidney Failure < 15 mL/min/1.73m2 *Relative to young adult level Estimated glomerular filtration rate is determined by the 2020 CKD-EPI equation recommended by the National Kidney Foundation (A Unifying Approach to GFR Estimation: Recommendations of the NKF-ASK Task Force on Reassessing the Inclusion of Race in Diagnosing Kidney Disease, JASN 2020). The CKD-EPI equation should not be used for patients with unstable renal function and has not been validated in children and those over 70. Current interpretive data was last reviewed 2021. Blood 10/05/2024 8:[address] LIGHT SERVICER 10/05/2024 8:[address] LIGHT SERVICER Geni Beltran [employer] LAB BLOOD ORDERABLES Monie l Result Performing Organization Address [facility]/ZIP Co de Phone Number [facility] [place] [address] * (ABNORMAL) CBC without differential (10/05/2024 8:[address] LIGHT SERVICER) Pathologist [facility] WBC 6.1 3.8 - 9.9 K/cumm Hgb 11.4(L) 11.9 - 15.5 g/dL [facility] Hct 33.1(L) 35.6 - 45.5 % [facility] Plt 110(L) 150 - 400 K/cumm [facility] MPV 10.0 9.1 - 12.3 fL [facility] RBC 3.98 3.90 - 5.20 M/cumm [facility] MCV 83.2 81.3 - 96.4 fL [facility] MCH 28.6 27.1 - 33.3 pg [facility] MCHC 34.4 32.3 - 35.7 g/dL [facility] RDW CV 14.6 11.1 - 14.9 % [facility] RDW SD 44.3 35.7 - 48.1 fL [facility] NRBC abs 0.00 0.00 - 0.01 K/cumm [facility] Blood 10/05/2024 8:[address] LIGHT SERVICER 10/05/2024 8:[address] LIGHT SERVICER us Geni Beltran [employer] [facility] LAB BLOOD ORDERABLES Monie l Result [facility] Department [place] [address] * Phosphorus (10/05/2024 8:[address] LIGHT SERVICER) Pathologist [facility] Phosphorus, pl 3.6 2.3 - 4.5 mg/dL Blood 10/05/2024 8:[address] LIGHT SERVICER 10/05/2024 8:[address] LIGHT SERVICER Randell Corona MD LAB BLOOD ORDERABLES Final Result Performing Organization Address City/[facility] Co de Phone Number [facility] [place] [address] * Magnesium (10/05/2024 8:[address] LIGHT SERVICER) Magnesium 2.4 1.4 - 2.5 mg/dL Blood 10/05/2024 8:[address] LIGHT SERVICER 10/05/2024 8:[address] LIGHT SERVICER Randell Corona MD LAB BLOOD ORDERABLES Final Result Performing Organization Address [facility] Co de Phone Number [facility] Department [place] [address] * (ABNORMAL) Lipid panel (10/05/2024 8:[address] LIGHT SERVICER) Cholesterol 95 30 - 199 mg/dL Comment: Interpretive Data Ages < or = 19 years Acceptable: <170 mg/dL Borderline high: 170-199 mg/dL High: >or= 200 mg/dL Ages > or = 20 years Desirable: <200 mg/dL Borderline high: 200-239 mg/dL High: >or= 240 mg/dL Literature References: 1. Expert Panel on Integrated Guidelines for Cardiovascular Health and Risk Reduction in Children and Adolescents. Pediatrics 2011;128:S213 2. NCEP Expert Panel. Circulation 2004;110:227 Current Interpretive Data was last revised on 2018. Triglycerides 83 <=149 mg/dL [facility] Comment: Interpretive Data Ages < or = 9 years Acceptable: <75 mg/dL Borderline high: 75-99 mg/dL High: >or= 100 mg/dL Ages 10 to 20 years Acceptable: <90 mg/dL Borderline high: 90-129 mg/dL High: >or= 130 mg/dL Ages > or = 20 years Desirable: <150 mg/dL Borderline high: 150-199 mg/dL High: 200-499 mg/dL Very high: >or= 499 mg/dL Literature References: 1. Expert Panel on Integrated Guidelines for Cardiovascular Health and Risk Reduction in Children and Adolescents. Pediatrics 2011;128:S213 2. NCEP Expert Panel. Circulation 2004;110:227 Current Interpretive Data was last revised on 2018. HDL 31(L) >=40 mg/dL [facility] Comment: Interpretive Data Ages < or = 19 years Acceptable: >45 mg/dL Borderline low: 40-45 mg/dL Low: <40 mg/dL Ages > or = 20 years Desirable: >or= 60 mg/dL Low: <40 mg/dL Literature References: 1. Expert Panel on Integrated Guidelines for Cardiovascular Health and Risk Reduction in Children and Adolescents. Pediatrics 2011;128:S213 2. NCEP Expert Panel. Circulation 2004;110:227 Current Interpretive Data was last revised on 2018. LDL, calculated 47 <=129 mg/dL [facility] Comment: Interpretive Data Ages < or = 19 years Acceptable: <110 mg/dL Borderline high: 110-129 mg/dL High: >or= 130 mg/dL Ages > or = 20 years Optimal: <100 mg/dL Near optimal: 100-129 mg/dL Borderline high: 130-159 mg/dL High: >160 mg/dL Calculated using the Shiva LDL-C estimating equation. This equation was implemented on 2024. Prior to this date LDL-C was estimated using the Friedewald equation. Literature References: 1. Expert Panel on Integrated Guidelines for Cardiovascular Health and Risk Reduction in Children and Adolescents. Pediatrics 2011;128:S213 2. NCEP Expert Panel. Circulation 2004;110:227 3. Shiva Manrique et al. UDAY Cardiol. 2019December 09;5(5):540-548. doi: [email or web address] Current Interpretive Data was last revised on 2024. Non-HDL Cholesterol 64 mg/dL [facility] Comment: Interpretive Data Ages < or = 19 years Acceptable: <120 mg/dL Borderline high: 120-144 mg/dL High: >145 mg/dL Ages > or = 20 years When triglycerides are >200 mg/dL, Non-HDL cholesterol is a secondary target of therapy with treatment goals that are 30 mg/dL greater than the LDL cholesterol target. Literature References: 1. Expert Panel on Integrated Guidelines for Cardiovascular Health and Risk Reduction in Children and Adolescents. Pediatrics 2011;128:S213 2. NCEP Expert Panel. Circulation 2004;110:227 Current Interpretive Data was last revised on 2018. Chol/HDL ratio 3 [facility] Blood 10/05/2024 8:[address] LIGHT SERVICER 10/05/2024 10:[address] LIGHT SERVICER us Randell Corona MD LAB BLOOD ORDERABLES Final Result Performing Organization Address City/State/[facility] Co de Phone Number [facility] [place] [address] * (ABNORMAL) Basic metabolic panel (10/05/2024 8:[address] LIGHT SERVICER) Sodium 133(L) 135 - 145 mmol/L Potassium, pl 4.5 3.3 - 4.9 mmol/L [facility] Chloride 103 97 - 110 mmol/L [facility] CO2 22 22 - 32 mmol/L [facility] Anion gap 8 2 - 15 mmol/L [facility] BUN 10 6 - 25 mg/dL [facility] Creatinine 0.50(L) 0.60 - 1.10 mg/dL [facility] Glucose 197 70 - 199 mg/dL [facility] Comment: Interpretive Data Fasting glucose >/= 126 mg/dl is diagnostic for diabetes. Fasting is defined as no caloric intake for at least 8 hours. Fasting glucose between 100 mg/dl to 125 mg/dl is diagnostic of prediabetes. In a patient with classic symptoms of hyperglycemia or hyperglycemic crisis, a random glucose >/= 200 mg/dl is diagnostic for diabetes. In the absence of unequivocal hyperglycemia, results should be confirmed by repeat testing. The classification and Diagnosis of Diabetes Diabetes Care 2021; 46: S19-S40. Current interpretive data was last revised 2022. Calcium 8.5 8.5 - 10.3 mg/dL [facility] Blood 10/05/2024 8:[address] LIGHT SERVICER 10/05/2024 8:[address] LIGHT SERVICER us Geni Beltran NP LAB BLOOD ORDERABLES Monie l Result Performing Organization Address City/[facility]/ZIP Co de Phone Number [facility] [place] [address] * (ABNORMAL) POC Blood Gas and Chemistries, Arterial - (10/05/2024 8:[address] LIGHT SERVICER) pH, Art POC 7.44 7.35 - 7.45 pCO2, Art POC 30(L) 35 - 45 mmHg [facility] pO2, Art POC 267(H) 83 - 108 mmHg [facility] H Na, POC 133(L) 135 - 145 mmol/L [facility] K POC 4.3 3.3 - 4.9 mmol/L [facility] Comment: Interpretive Data Not all point of care methods assess for hemolysis. Confirm with instrument and retest K+ if not consistent with clinical signs and symptoms. Current Interpretive Data was last revised on 2023. Cl, POC 107 97 - 110 mmol/L [facility] Ionized Ca, POC 4.64 4.50 - 5.10 mg/dL [facility] Glucose, POC 197 70 - 199 mg/dL [facility] Lactate, POC 1.1 0.7 - 2.0 mmol/L [facility] SO2 (ruth) arterial 100(H) 90 - 95 % [facility] Base excess, POC -2.8 mmol/L [facility] HCO3, Art POC 20 20 - 30 mmol/L [facility] Hct, POC 36.0(L) 36.3 - 45.3 % [facility] Total Hb, POC 11.9 11.9 - 15.5 g/dL [facility] Blood 10/05/2024 8:[address] LIGHT SERVICER 10/05/2024 8:[address] LIGHT SERVICER us Randell Corona MD LAB POCT ORDERABLES - DEVICE Final Result [facility] [place] [address] * XR Scoliosis Ap and Lateral (10/05/2024 6:[address] LIGHT SERVICER) Anatomical Region Laterality Modality Spine N/A Computed Radiogr aphy 10/05/2024 7:[address] LIGHT SERVICER Impressions 10/05/2024 7:[address] LIGHT SERVICER 1. Intraoperative films demonstrating complex posterior instrumented fusion spanning from C2 to the pelvis. The Non Critical results were discussed with nurse Means by Dr. Mclaughlin on 10/05/2024 at 6:56 PM. Dictated by: Mustapha Mclaughlin MD PHD The radiology attending physician has personally reviewed this study, and had reviewed and/or edited this written report and agrees with it. Electronically signed by: Javid Mckinley M.D. Narrative 10/05/2024 7:[address] LIGHT SERVICER EXAMINATION: TEMPORARY HISTORY: Operative films for closure. FINDINGS: 5 lateral and PA exposures of the spine were obtained intraoperatively and submitted for interpretation. Comparison is made to same day radiographs dated 10/05/[address] 10/04/2024. Changes of complex posterior instrumented fusion spanning from C2 to the pelvis with bilateral iliac screws are noted. Note that the left vertical jacqueline demonstrates apparent discontinuity at the L3-L4 level; recommend correlation with operative findings. Multiple surgical rishabh overlie the left upper quadrant and pelvis. Urethral catheter with Doppler probe. Left total hip arthroplasty. Normal bowel gas pattern. No retained needle. Procedure Note Javid Mckinley MD - 10/05/2024 EXAMINATION: TEMPORARY HISTORY: Operative films for closure. FINDINGS: 5 lateral and PA exposures of the spine were obtained intraoperatively and submitted for interpretation. Comparison is made to same day radiographs dated 10/05/[address] 10/04/2024. Changes of complex posterior instrumented fusion spanning from C2 to the pelvis with bilateral iliac screws are noted. Note that the left vertical jacqueline demonstrates apparent discontinuity at the L3-L4 level; recommend correlation with operative findings. Multiple surgical rishabh overlie the left upper quadrant and pelvis. Urethral catheter with Doppler probe. Left total hip arthroplasty. Normal bowel gas pattern. No retained needle. IMPRESSION: 1. Intraoperative films demonstrating complex posterior instrumented fusion spanning from C2 to the pelvis. The Non Critical results were discussed with nurse Means by Dr. Mclaughlin on 10/05/2024 at 6:56 PM. Dictated by: Mustapha Mclaughlin MD PHD The radiology attending physician has personally reviewed this study, and had reviewed and/or edited this written report and agrees with it. Electronically signed by: Javid Mckinley M.D. us Jenaro Escobar MD IMG XR PROCEDURES Final Result * (ABNORMAL) POC Blood Gas and Chemistries, Arterial - (10/05/2024 5:[address] LIGHT SERVICER) pH, Art POC 7.33(L) 7.35 - 7.45 pCO2, Art POC 37 35 - 45 mmHg [facility] pO2, Art POC 206(H) 83 - 108 mmHg [facility] Na, POC 134(L) 135 - 145 mmol/L [facility] K POC 4.0 3.3 - 4.9 mmol/L [facility] Comment: Interpretive Data Not all point of care methods assess for hemolysis. Confirm with instrument and retest K+ if not consistent with clinical signs and symptoms. Current Interpretive Data was last revised on 2023. Cl, POC 106 97 - 110 mmol/L [facility] Ionized Ca, POC 4.64 4.50 - 5.10 mg/dL [facility] Glucose, POC 171 70 - 199 mg/dL [facility] Lactate, POC 1.3 0.7 - 2.0 mmol/L [facility] SO2 (ruth) arterial 100(H) 90 - 95 % [facility] Base excess, POC -5.9 mmol/L [facility] [place] Hct, POC 32.0(L) 36.3 - 45.3 % [facility] Total Hb, POC 10.8(L) 11.9 - 15.5 g/dL [facility] Blood 10/05/2024 5:[address] LIGHT SERVICER 10/05/2024 5:[address] LIGHT SERVICER us Randell Corona MD LAB POCT ORDERABLES - DEVICE Final Result [facility] [place] [address] * Transfuse plasma (10/05/2024 5:[address] LIGHT SERVICER) Blood us Gregg Rocha MD BLOOD TRANSFUSION ORDERA BLES Final Result [facility] [place] [address] * XR Spine Thoracic 2 Views (10/05/2024 4:[address] LIGHT SERVICER) Anatomical Region Laterality Modality Spine N/A Computed Radiogr aphy 10/05/2024 5:[address] LIGHT SERVICER Impressions 10/05/2024 5:[address] LIGHT SERVICER 1. In progress posterior instrumented spinal fusion from C2-L1 with upper thoracic interbody cage. Electronically signed by: Guillermo Berry M.D. Narrative 10/05/2024 5:[address] LIGHT SERVICER EXAMINATION: XR SPINE THORACIC 2 VIEWS HISTORY: INTRAOP FINDINGS: Intraoperative radiographs of the thoracic spine are read with comparison to the scoliosis series to 12/28/2024. In progress posterior instrumented spinal fusion from C2-L1 with interbody cage in the upper thoracic spine. Multiple lines and tubes overlie the patient. Surgical sponge projects over the upper back. Procedure Note Guillermo Pimentel MD - 10/05/2024 EXAMINATION: XR SPINE THORACIC 2 VIEWS HISTORY: INTRAOP FINDINGS: Intraoperative radiographs of the thoracic spine are read with comparison to the scoliosis series to 12/28/2024. In progress posterior instrumented spinal fusion from C2-L1 with interbody cage in the upper thoracic spine. Multiple lines and tubes overlie the patient. Surgical sponge projects over the upper back. IMPRESSION: 1. In progress posterior instrumented spinal fusion from C2-L1 with upper thoracic interbody cage. Electronically signed by: Guillermo Berry M.D. us Randell Corona MD IMG XR PROCEDURES Fi nal Result * [place] Fluoroscopy < 1 Hour (10/05/2024 4:[address] LIGHT SERVICER) Narrative RAD_P[facility] - 10/05/2024 4:[address] LIGHT SERVICER The images from this study are not interpreted by Radiology. Please refer to the physician's procedure / OR operative note. us Randell Corona MD IMG FLUOROSCOPY PROC EDURES Final Result [id number] * Transfuse RBC (10/05/2024 4:[address] LIGHT SERVICER) Blood us Gregg Rocha MD BLOOD TRANSFUSION ORDERA BLES Final Result Performing Organization Address City/[facility]/ZIP Co de Phone Number [facility] [place] [address] * (ABNORMAL) POC Blood Gas and Chemistries, Arterial - (10/05/2024 4:[address] LIGHT SERVICER) pH, Art POC 7.32(L) 7.35 - 7.45 pCO2, Art POC 36 35 - 45 mmHg [facility] pO2, Art POC 210(H) 83 - 108 mmHg [facility] Na, POC 133(L) 135 - 145 mmol/L [facility] K POC 3.6 3.3 - 4.9 mmol/L [facility] Comment: Interpretive Data Not all point of care methods assess for hemolysis. Confirm with instrument and retest K+ if not consistent with clinical signs and symptoms. Current Interpretive Data was last revised on 2023. Cl, POC 108 97 - 110 mmol/L [facility] Ionized Ca, POC 5.21(H) 4.50 - 5.10 mg/dL [facility] Glucose, POC 148 70 - 199 mg/dL [facility] Lactate, POC 1.1 0.7 - 2.0 mmol/L [facility] SO2 (ruth) arterial 100(H) 90 - 95 % [facility] Base excess, POC -6.9 mmol/L [facility] Hct, POC 30.0(L) 36.3 - 45.3 % [facility] Total Hb, POC 10.1(L) 11.9 - 15.5 g/dL [facility] [place] Blood 10/05/2024 4:[address] LIGHT SERVICER 10/05/2024 4:[address] LIGHT SERVICER Randell Corona MD LAB POCT ORDERABLES - DEVICE Final Result Performing Organization Address City/[facility] Co de Phone Number [facility] Department [place] [address] * (ABNORMAL) POC Blood Gas and Chemistries, Arterial - (10/05/2024 3:[address] LIGHT SERVICER) pH, Art POC 7.36 7.35 - 7.45 pCO2, Art POC 34(L) 35 - 45 mmHg [facility] pO2, Art POC 224(H) 83 - 108 mmHg [facility] Na, POC 133(L) 135 - 145 mmol/L [facility] [place] K POC 3.6 3.3 - 4.9 mmol/L [facility] Comment: Interpretive Data Not all point of care methods assess for hemolysis. Confirm with instrument and retest K+ if not consistent with clinical signs and symptoms. Current Interpretive Data was last revised on 2023. Cl, POC 107 97 - 110 mmol/L [facility] Ionized Ca, POC 5.08 4.50 - 5.10 mg/dL [facility] Glucose, POC 161 70 - 199 mg/dL [facility] Lactate, POC 1.0 0.7 - 2.0 mmol/L [facility] SO2 (ruth) arterial 100(H) 90 - 95 % [facility] Base excess, POC -5.5 mmol/L [facility] Hct, POC 34.0(L) 36.3 - 45.3 % [facility] Total Hb, POC 11.2(L) 11.9 - 15.5 g/dL [facility] Blood 10/05/2024 3:[address] LIGHT SERVICER 10/05/2024 3:[address] LIGHT SERVICER Randell Corona MD LAB POCT ORDERABLES - [place] [address] * Transfuse plasma (10/05/2024 2:[address] LIGHT SERVICER) Blood Gregg Rocha MD BLOOD TRANSFUSION ORDERA BLES Final Result Performing Organization Address [facility] [place] [address] * Transfuse RBC (10/05/2024 2:[address] LIGHT SERVICER) Blood Gregg Rocha MD BLOOD TRANSFUSION ORDERA BLES Final Result Performing Organization Address [facility] [place] [address] * Prepare plasma: 1 Units (10/05/2024 2:[address] LIGHT SERVICER) Product code [id number] Unit Number [id number] M [facility] Product Blood Type ANEG [facility] Dispense Status PRESUMED TRANSFUSED [facility] Blood Venous blood specimen / Unknown 10/05/2024 2:[address] LIGHT SERVICER 10/05/2024 2:[address] LIGHT SERVICER Narrative [facility] - 10/06/2024 6:[address] LIGHT SERVICER Date required: FFP # of Units:-1-Units Reasons:-Immediate need for surgical intervention Gregg Rocha MD BLOOD BANK PRODUCT ORDER SCOT Final Result Performing Organization Address [facility] [place] [address] * Prepare RBC: 1 Units (10/05/2024 2:[address] LIGHT SERVICER) Product code [id number] Unit Number [id number] [id number] [facility] Product Blood Type APOS [facility] Dispense Status RETURNED [facility] Blood 10/05/2024 2:[address] LIGHT SERVICER 10/05/2024 2:[address] LIGHT SERVICER Narrative [facility] - 10/05/2024 6:[address] LIGHT SERVICER Are special requirements needed? (All products are leukoreduced and CMV- safe)- >No Date required:-20241005 LRRBC # of [id number] Reasons:-Intra-op transfusion} us Gregg Rocha MD BLOOD BANK PRODUCT ORDER SCOT Final Result [facility] Department [place] [address] * (ABNORMAL) POC Blood Gas and Chemistries, Arterial - (10/05/2024 2:[address] LIGHT SERVICER) pH, Art POC 7.35 7.35 - 7.45 pCO2, Art POC 36 35 - 45 mmHg [facility] pO2, Art POC 247(H) 83 - 108 mmHg [facility] Na, POC 132(L) 135 - 145 mmol/L [facility] K POC 3.7 3.3 - 4.9 mmol/L [facility] Comment: Interpretive Data Not all point of care methods assess for hemolysis. Confirm with instrument and retest K+ if not consistent with clinical signs and symptoms. Current Interpretive Data was last revised on 2023. Cl, POC 106 97 - 110 mmol/L [facility] Ionized Ca, POC 4.02(L) 4.50 - 5.10 mg/dL [facility] Glucose, POC 150 70 - 199 mg/dL [facility] Lactate, POC 1.1 0.7 - 2.0 mmol/L [facility] SO2 (ruth) arterial 100(H) 90 - 95 % [facility] Base excess, POC -5.2 mmol/L [facility] HCO3, Art POC 21 20 - 30 mmol/L [facility] Hct, POC 31.0(L) 36.3 - 45.3 % [facility] Total Hb, POC 10.2(L) 11.9 - 15.5 g/dL [facility] Blood 10/05/2024 2:[address] LIGHT SERVICER 10/05/2024 2:[address] LIGHT SERVICER us Randell Corona MD LAB POCT ORDERABLES - DEVICE Final Result Performing Organization Address City/[facility] [place] [address] * (ABNORMAL) POCT hemoglobin, hematocrit and platelet count (10/05/2024 2:[address] LIGHT SERVICER) [facility] Hgb, POC 9.7(L) 11.9 - 15.5 g/dL Hematocrit POC 29.3(L) 35.6 - 45.5 % [facility] Platelet POC 157 150 - 400 K/cumm [facility] Blood 10/05/2024 2:[address] LIGHT SERVICER 10/05/2024 2:[address] LIGHT SERVICER us Randell Corona MD LAB POCT ORDERABLES - DEVICE Final Result Performing Organization Address [facility] Co de Phone Number [facility] [employer] [place] [address] * Transfuse platelets (10/05/2024 2:[address] LIGHT SERVICER) Blood us Gregg Rocha MD BLOOD TRANSFUSION ORDERA BLES Final Result Performing Organization Address City/[facility]/ZIP Co de Phone Number [facility] [place] [address] * Transfuse platelets (10/05/2024 1:[address] LIGHT SERVICER) Blood us Gregg Rocha MD BLOOD TRANSFUSION ORDERA BLES Final Result Performing Organization Address City/[facility]/ZIP Co de Phone Number [facility] [place] [address] * Prepare plasma: 1 Units (10/05/2024 1:[address] LIGHT SERVICER) Product code [id number] Unit Number [id number] 0-F [facility] Product Blood Type ANEG [facility] Dispense Status RETURNED [facility] Blood Venous blood specimen / Unknown 10/05/2024 1:[address] LIGHT SERVICER 10/05/2024 1:[address] LIGHT SERVICER Narrative [facility] - 10/05/2024 6:[address] LIGHT SERVICER Date required:-[id number] FFP # of Units:-1-Units Reasons:-Immediate need for surgical intervention us Gregg Rocha MD BLOOD BANK PRODUCT ORDER SCOT Final Result Performing Organization Address [facility] [place] [address] * Prepare RBC: 1 Units (10/05/2024 1:[address] LIGHT SERVICER) Product code [id number] Unit Number [id number]- R [facility] Product Blood Type APOS [facility] Dispense Status PRESUMED TRANSFUSED [facility] Blood 10/05/2024 1:[address] LIGHT SERVICER 10/05/2024 1:[address] LIGHT SERVICER Narrative [facility] - 10/06/2024 6:[address] LIGHT SERVICER Are special requirements needed? (All products are leukoreduced and CMV- safe)- >No Date required:-20241005 LRRBC # of [id number] Reasons:-Intra-op transfusion} Gregg Rocha MD BLOOD BANK PRODUCT ORDER SCOT Final Result Performing Organization Address City/State/[facility] [place] [address] * Prepare platelets: 2 Units (10/05/2024 1:[address] LIGHT SERVICER) Product code [id number] Unit Number [id number] N [facility] Product Blood Type APOS [facility] Dispense Status PRESUMED TRANSFUSED [facility] Product code [id number] [facility] Unit Number [id number]- U [facility] Product Blood Type APOS [facility] Dispense Status PRESUMED [facility]SFUSED [facility] Blood Venous blood specimen / Unknown 10/05/2024 1:[address] LIGHT SERVICER 10/05/2024 1:[address] LIGHT SERVICER Narrative [facility] - 10/06/2024 6:[address] LIGHT SERVICER Are special requirements needed? (all products are leukoreduced)->No Date required:-20241005 PLT # of Units:-2-Units Reasons:-Major active bleeding} Gregg Rocha MD BLOOD BANK PRODUCT ORDER SCOT Final Result Performing Organization Address City/[facility] Co de Phone Number [facility] Department [place] [address] * Transfuse cryoprecipitate (pooled units) (10/05/2024 1:[address] LIGHT SERVICER) Blood Gregg Rocha MD BLOOD TRANSFUSION ORDERA BLES Final Result Performing Organization Address City/[facility] Co de Phone Number [facility] Department [place] [address] * Transfuse plasma (10/05/2024 1:[address] LIGHT SERVICER) Blood Gregg Rocha MD BLOOD TRANSFUSION ORDERA BLES Final Result Performing Organization Address [facility]/ZIP Co de Phone Number [facility] Department [place] [address] * Prepare cryoprecipitate (pooled units): 1 Units (10/05/2024 1:[address] LIGHT SERVICER) [facility] Product code [id number] Unit Number [id number] Q [facility] Product Blood Type OPOS [facility] Dispense Status PRESUMED TRANSFUSED [facility] Blood Venous blood specimen / Unknown 10/05/2024 1:[address] LIGHT SERVICER 10/05/2024 1:[address] LIGHT SERVICER Narrative [facility] - 10/06/2024 6:[address] LIGHT SERVICER Cryo # of [id number] Reasons:-Dysfibrinogenemia WITH bleeding} us Gregg Rocha MD BLOOD BANK PRODUCT ORDER SCOT Final Result Performing Organization Address City/[facility]/ZIP Co de Phone Number [facility] Department [place] [address] * Transfuse RBC (10/05/2024 12:[address] LIGHT SERVICER) Blood us Gregg Rocha MD BLOOD TRANSFUSION ORDERA BLES Final Result [facility] Department [place] [address] * (ABNORMAL) POC Blood Gas and Chemistries, Arterial - (10/05/2024 12:[address] LIGHT SERVICER) [facility] pH, Art POC 7.37 7.35 - 7.45 pCO2, Art POC 33(L) 35 - 45 mmHg [facility] pO2, Art POC 249(H) 83 - 108 mmHg [facility] Na, POC 132(L) 135 - 145 mmol/L [facility] K POC 3.9 3.3 - 4.9 mmol/L [facility] Comment: Interpretive Data Not all point of care methods assess for hemolysis. Confirm with instrument and retest K+ if not consistent with clinical signs and symptoms. Current Interpretive Data was last revised on 2023. Cl, POC 108 97 - 110 mmol/L [facility] Ionized Ca, POC 5.39(H) 4.50 - 5.10 mg/dL [facility] Glucose, POC 117 70 - 199 mg/dL [facility] [place] Lactate, POC 0.8 0.7 - 2.0 mmol/L [facility] SO2 (ruth) arterial 100(H) 90 - 95 % [facility] Base excess, POC -5.5 mmol/L [facility] Hct, POC 31.0(L) 36.3 - 45.3 % [facility] Total Hb, POC 10.3(L) 11.9 - 15.5 g/dL [facility] Blood 10/05/2024 12:[address] LIGHT SERVICER 10/05/2024 12:[address] LIGHT SERVICER us Randell Corona MD LAB POCT ORDERABLES - DEVICE Final Result [facility] [place] [address] * (ABNORMAL) POC Blood Gas and Chemistries, Arterial - (10/05/2024 10:[address] LIGHT SERVICER) pH, Art POC 7.36 7.35 - 7.45 pCO2, Art POC 36 35 - 45 mmHg [facility] pO2, Art POC 252(H) 83 - 108 mmHg [facility] Na, POC 133(L) 135 - 145 mmol/L [facility] K POC 3.4 3.3 - 4.9 mmol/L [facility] Comment: Interpretive Data Not all point of care methods assess for hemolysis. Confirm with instrument and retest K+ if not consistent with clinical signs and symptoms. Current Interpretive Data was last revised on 2023. Cl, POC 106 97 - 110 mmol/L [facility] Ionized Ca, POC 4.49(L) 4.50 - 5.10 mg/dL [facility] Glucose, POC 103 70 - 199 mg/dL [facility] Lactate, POC 0.7 0.7 - 2.0 mmol/L [facility] SO2 (ruth) arterial 100(H) 90 - 95 % [facility] Base excess, POC -4.6 mmol/L [facility] [place] Hct, POC 32.0(L) 36.3 - 45.3 % [facility] Total Hb, POC 10.5(L) 11.9 - 15.5 g/dL [facility] Blood 10/05/2024 10:[address] LIGHT SERVICER 10/05/2024 10:[address] LIGHT SERVICER Result [facility] Randell Corona MD LAB POCT ORDERABLES - DEVICE Final Result [facility] [place] [address] * OR AN PROCEDURE PLACEHOLDER (10/05/2024 9:[address] LIGHT SERVICER) Narrative Addison Hernandez RN - 10/05/2024 9:[address] LIGHT SERVICER Addison Hernandez RN 10/05/2024 9:21 AM Peripheral IV Catheter Patient location: OR Staff: Placed by: Other staff: Addison Hernandez RN Preprocedure prep: Prep solution: chlorhexadine and alcohol PPE: gloves and provider hat/mask PIV line: Laterality: right Site: foot Catheter size: 16 g Technique: anatomical landmarks, direct visualization and palpatation Procedure details: good blood return and occlusive dressing applied Number of attempts: 1 Assessment: Events: patient tolerated procedure well with no complications Result [facility] Gregg Rocha MD ANESTHESIA ORDERABLES Fi nal Result * OR AN PROCEDURE PLACEHOLDER (10/05/2024 9:[address] LIGHT SERVICER) Narrative Addison Hernandez RN - 10/05/2024 9:[address] LIGHT SERVICER Addison Hernandez RN 10/05/2024 9:21 AM Peripheral IV Catheter Patient location: OR Staff: Placed by: Other staff: Addison Hernandez RN Preprocedure prep: Prep solution: chlorhexadine and alcohol PPE: gloves and provider hat/mask PIV line: Laterality: left Site: wrist Catheter size: 16 g Technique: anatomical landmarks, direct visualization and palpatation Procedure details: good blood return and occlusive dressing applied Number of attempts: 1 Assessment: Events: patient tolerated procedure well with no complications Result [facility] Gregg Rocha MD ANESTHESIA ORDERABLES Fi nal Result * OR AN PROCEDURE PLACEHOLDER (10/05/2024 9:[address] LIGHT SERVICER) Addison Ibrahim RN - 10/05/2024 9:[address] LIGHT SERVICER Addison Hernandez RN 10/05/2024 9:20 AM Peripheral IV Catheter Patient location: OR Staff: Placed by: Other staff: Addison Hernandez RN Preprocedure prep: Prep solution: chlorhexadine and alcohol PPE: gloves and provider hat/mask PIV line: Laterality: left Site: forearm Catheter size: 16 g Technique: anatomical landmarks, direct visualization and palpatation Procedure details: good blood return and occlusive dressing applied Number of attempts: 1 Assessment: Events: patient tolerated procedure well with no complications Gregg Rocha MD ANESTHESIA ORDERABLES Fi nal Result * OR AN PROCEDURE PLACEHOLDER (10/05/2024 9:[address] LIGHT SERVICER) Addison Ibrahim RN - 10/05/2024 9:[address] LIGHT SERVICER Addison Hernandez RN 10/05/2024 9:20 AM Arterial Line Patient location: pre-op holding Indication: continuous blood pressure monitoring and blood sampling needed Ultrasound assisted: yes Staff: Supervising provider: Gregg Rocha MD Placed by: HIGH VOLTAGE ELECTRICIAN: Johnna Munson CRNA Other staff: Addison Hernandez RN Procedure prep: Prep solution: chlorhexadine/alcohol Prep: provider hat/mask and sterile gloves Skin infiltrated with lidocaine 1%: yes Arterial line: Catheter size: 20 gauge Catheter length: 1 and 3/4 inch Catheter type: wire-guided catheter Seldinger technique: yes Laterality: right Site: radial artery Line secured: Tegaderm and tape Results: good waveform and good blood return Number of attempts: 1 Assessment: Events: patient tolerated procedure well with no complications Gregg Rocha MD ANESTHESIA ORDERABLES Fi nal Result * OR AN ELECTIVE ENDOTRACHEAL AIRWAY, OR AN PROCEDURE PLACEHOLDER (10/05/2024 9:[address] LIGHT SERVICER) Addison Ibrahim RN - 10/05/2024 9:[address] LIGHT SERVICER Addison Hernandez RN 10/05/2024 9:19 AM Airway Patient location: OR Urgency: elective Date/time: 10/05/2024 7:57 AM Indications for airway management: anesthesia Difficult airway: no Staff: Supervising provider: Gregg Rocha MD Placed by: HIGH VOLTAGE ELECTRICIAN: Johnna Munson CRNA Other staff: Addison Hernandez RN Emergent airway documentation: Risks and benefits discussed: yes Consent obtained: yes Consent given by: patient Airway prep: Preoxygenated: yes Patient position: sniffing Mask difficulty assessment: 0 - not attempted Spontaneous ventilation during airway: absent Sedation level during airway: GA Final airway details: Final airway type: endotracheal airway Tube type: ETT ETT size: 7.0 mm Cuffed: yes Technique used for successful ETT placement: video laryngoscopy Devices/Methods used in placement: stylet Insertion site: oral Blade type: Samara Video blade type: Dewey Blade size: 3 Cormack-Lehane (video): grade I - full view of glottis Initial cuff pressure: 28 cm H2O Cuff volume: 8 mL Cuff inflated with: air ETT to lips: 22 cm Placement verified by: auscultation and CO2 detection Airway secured with: silk tape Number of attempts: 1 us Gregg Rocha MD ANESTHESIA ORDERABLES Fi nal Result * Prepare plasma: 2 Units (10/05/2024 8:[address] LIGHT SERVICER) Product code [id number] [facility] [place] Unit Number [id number] * [facility] Product Blood Type APOS [facility] Dispense Status PRESUMED TRANSFUSED [facility] Product code [id number] Unit Number [id number] Y [facility] Product Blood Type APOS [facility] Dispense [facility] PRESUMED TRANSFUSED [facility] Blood Venous blood specimen / Unknown 10/05/2024 8:[address] LIGHT SERVICER 10/05/2024 8:[address] LIGHT SERVICER Narrative [facility] - 10/06/2024 12:[address] LIGHT SERVICER Date required: FFP # of Units:-2-Units Reasons:-Immediate need for surgical intervention us Gregg Rocha MD BLOOD BANK PRODUCT ORDER SCOT Final Result [facility] [place] [address] * (ABNORMAL) POC Blood Gas and Chemistries, Arterial - (10/05/2024 8:[address] LIGHT SERVICER) pH, Art POC 7.41 7.35 - 7.45 pCO2, Art POC 36 35 - 45 mmHg [facility] pO2, Art POC 253(H) 83 - 108 mmHg [facility] Na, POC 132(L) 135 - 145 mmol/L [facility] K POC 3.7 3.3 - 4.9 mmol/L [facility] Comment: Interpretive Data Not all point of care methods assess for hemolysis. Confirm with instrument and retest K+ if not consistent with clinical signs and symptoms. Current Interpretive Data was last revised on 2023. Cl, POC 103 97 - 110 mmol/L [facility] Ionized Ca, POC 4.76 4.50 - 5.10 mg/dL [facility] Glucose, POC 118 70 - 199 mg/dL [facility] Lactate, POC 0.8 0.7 - 2.0 mmol/L [facility] SO2 (ruth) arterial 100(H) 90 - 95 % [facility] Base excess, POC -1.5 mmol/L [facility] Hct, POC 34.0(L) 36.3 - 45.3 % [facility] Total Hb, POC 11.3(L) 11.9 - 15.5 g/dL [facility] Blood 10/05/2024 8:[address] LIGHT SERVICER 10/05/2024 8:[address] LIGHT SERVICER us Randell Corona MD LAB POCT ORDERABLES - DEVICE Final Result [facility] [place] [address] * Type and screen (10/05/2024 6:[address] LIGHT SERVICER) [place], indirect Negative ABO Rh A Positive [facility] [place] Blood 10/05/2024 6:[address] LIGHT SERVICER 10/05/2024 6:[address] LIGHT SERVICER Narrative [facility] - 10/05/2024 7:[address] LIGHT SERVICER Has the patient had Daratumumab or Isatuximab in the past 6 months?->Unknown Maged Rainey NP LAB BLOOD BANK TEST ORDE RABLES Final Result Performing Organization Address [facility] Co de Phone Number [facility] Department [place] [address] * Prepare RBC: 2 Units (10/05/2024 5:[address] LIGHT SERVICER) [facility] Product code [id number] Unit Number [id number] Z [facility] Product Blood Type APOS [facility] Dispense Status PRESUMED TRANSFUSED [facility] Product code [id number] [facility] Unit Number [id number]- V [facility] Product Blood Type APOS [facility] Dispense Status PRESUMED TRANSFUSED [facility] Blood 10/05/2024 5:[address] LIGHT SERVICER 10/05/2024 5:[address] LIGHT SERVICER Narrative [facility] - 10/06/2024 12:[address] LIGHT SERVICER Specify Procedure:->C2-L1 fusion Are special requirements needed? (All products are leukoreduced and CMV- safe)- >No Date required:-[id number] LRRBC # of [id number] Reasons:-Hold for procedure (specify procedure)} Maged Rainey NP BLOOD BANK PRODUCT ORDER SCOT Final Result Performing Organization Address [facility] Co de Phone Number [facility] [place] [employer] [place] [address] * IR Central Line Placement > 5 Years (10/04/2024 1:[address] LIGHT SERVICER) Anatomical Region Laterality Modality Body N/A X-Ray Angiograph y 10/04/2024 3:[address] LIGHT SERVICER Impressions 10/04/2024 3:[address] LIGHT SERVICER Successful nontunneled catheter placement. PLAN: The catheter is ready for immediate use. When treatment is completed, this catheter can be removed at the bedside according to standard hospital protocol. Electronically signed by: Marlyn Mccoy PA-C Narrative 10/04/2024 3:[address] LIGHT SERVICER EXAMINATION: NONTUNNELED CENTRAL VENOUS CATHETER PLACEMENT (STD) HISTORY: 79-year-old female presenting for central venous access prior to spine operation. Provider Presence: Marlyn Mccoy PA-C, was present from the beginning to the end of the procedure. SEDATION: Conscious sedation was used for this procedure. TECHNIQUE: The risks, benefits and alternatives were discussed and informed consent was obtained. Prior to beginning the procedure, [place] Protocol was used to confirm the patient's identity and planned procedure. Fluoroscopy time has been recorded in the electronic medical record. Maximum sterile barriers including cap, mask, hand hygiene, sterile gloves, sterile gown, large sterile drape and 2% chlorhexidine for cutaneous antisepsis were used. The skin over the right subclavian vein was sterilely prepped, draped and infiltrated with 1% buffered lidocaine. Prior to the procedure, the target vessel was evaluated by ultrasound, an image of the patent vessel recorded, and this image placed in the patient's chart. After sterile prep, this vessel was accessed using realtime ultrasound guidance. A guidewire and catheter were then passed centrally using fluoroscopic guidance. The intravascular length from the access site to the right atrium was assessed. After dilating the tract, a triple lumen arrow catheter was inserted over the guidewire. The catheter was flushed with 100U/ml heparin and secured in place. A sterile dressing was applied. ESTIMATED BLOOD LOSS: less than 30 milliliters DISCHARGED TO: Recovery and then to home CONDITION: Stable FINDINGS: The final fluoroscopic image demonstrates the catheter with its tip at the cavoatrial junction. No complications are seen. Procedure Note Marlyn Mccoy PA - 10/04/2024 EXAMINATION: NONTUNNELED CENTRAL VENOUS CATHETER PLACEMENT (STD) HISTORY: 79-year-old female presenting for central venous access prior to spine operation. Provider Presence: Marlyn Mccoy PA-C, was present from the beginning to the end of the procedure. SEDATION: Conscious sedation was used for this procedure. TECHNIQUE: The risks, benefits and alternatives were discussed and informed consent was obtained. Prior to beginning the procedure, [place] Protocol was used to confirm the patient's identity and planned procedure. Fluoroscopy time has been recorded in the electronic medical record. Maximum sterile barriers including cap, mask, hand hygiene, sterile gloves, sterile gown, large sterile drape and 2% chlorhexidine for cutaneous antisepsis were used. The skin over the right subclavian vein was sterilely prepped, draped and infiltrated with 1% buffered lidocaine. Prior to the procedure, the target vessel was evaluated by ultrasound, an image of the patent vessel recorded, and this image placed in the patient's chart. After sterile prep, this vessel was accessed using realtime ultrasound guidance. A guidewire and catheter were then passed centrally using fluoroscopic guidance. The intravascular length from the access site to the right atrium was assessed. After dilating the tract, a triple lumen arrow catheter was inserted over the guidewire. The catheter was flushed with 100U/ml heparin and secured in place. A sterile dressing was applied. ESTIMATED BLOOD LOSS: less than 30 milliliters DISCHARGED TO: Recovery and then to home CONDITION: Stable FINDINGS: The final fluoroscopic image demonstrates the catheter with its tip at the cavoatrial junction. No complications are seen. IMPRESSION: Successful nontunneled catheter placement. PLAN: The catheter is ready for immediate use. When treatment is completed, this catheter can be removed at the bedside according to standard hospital protocol. Electronically signed by: Marlyn Mccoy PA-C Randell Corona MD IMMichelle IR PROCEDURES Fi nal Result * CT Thoracic and Lumbar Spine WO Contrast (10/04/2024 10:[address] LIGHT SERVICER) Anatomical Region Laterality Modality Spine N/A Computed Tomogra phy 10/04/2024 2:[address] LIGHT SERVICER Impressions 10/04/2024 5:[address] LIGHT SERVICER 1. Posterior instrumented fusion from T3 to S1 and posterior iliac wings. 2. The right upper most laminar hook is dorsal to the lamina. 3. Periprosthetic lucencies around the screws at T3-T5 without definite osseous bridging between these levels. 4. Compression fracture of the superior endplate of T11 and no definite osseous bridging at T10-T11. 5. 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 Dictated by: Riley Wilson M.D. The radiology attending physician has personally reviewed this study, and had reviewed and/or edited this written report and agrees with it. Electronically signed by: Mehran Gonsalez M.D. Narrative 10/04/2024 5:[address] LIGHT SERVICER EXAMINATION: 1. CT of the thoracic spine without contrast 2. 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 Patient will be undergoing extension of the fusion and pedicle subtraction osteotomy versus a PCR at T3 or T4 to correct the deformity. CT requested for preoperative planning. TECHNIQUE: CT of the thoracic spine was performed according to standard protocol without intravenous contrast. CT of the lumbar spine was performed according to the standard protocol without intravenous contrast. COMPARISON: CT cervical spine 06/03/2024, MRI cervical spine 05/24/2024 FINDINGS: THORACIC SPINE AND LUMBAR SPINE: There are 12 rib-bearing thoracic vertebra. There is posterior instrumented fusion from T3 to S1 with additional screws within the posterior iliac wings. No fracture of the instrumentation is seen. The right uppermost laminar hook appears to be dorsal to the posterior spinal elements. There are periprosthetic lucencies around T3, T4, and T5 screws. The T3 screw enters the disc space. There is no definite osseous bridging between T3-T4, T4-T5, and T10-T11. There is osseous bridging between T5-T10 and T11-S1. Interbody fusions between L4-L5 and L5-S1 are also noted. There is a superior endplate compression deformity with up to 40% height loss at T11. There is junctional hyperkyphosis of the upper thoracic spine with mild anterolisthesis of C7 on T1, T1 on T2, and T2 on T3. There is decreased lordosis of the lumbar spine. There is biapical pleural parenchymal scarring. Mild atherosclerosis of the aortic arch. The abdominal aorta appears normal. Valvular and coronary artery calcifications noted. Left greater than right psoas muscle atrophy and paraspinal muscle atrophy. Procedure Note Mehran Gonsalez MD - 10/04/2024 EXAMINATION: 1. CT of the thoracic spine without contrast 2. 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 Patient will be undergoing extension of the fusion and pedicle subtraction osteotomy versus a PCR at T3 or T4 to correct the deformity. CT requested for preoperative planning. TECHNIQUE: CT of the thoracic spine was performed according to standard protocol without intravenous contrast. CT of the lumbar spine was performed according to the standard protocol without intravenous contrast. COMPARISON: CT cervical spine 06/03/2024, MRI cervical spine 05/24/2024 FINDINGS: THORACIC SPINE AND LUMBAR SPINE: There are 12 rib-bearing thoracic vertebra. There is posterior instrumented fusion from T3 to S1 with additional screws within the posterior iliac wings. No fracture of the instrumentation is seen. The right uppermost laminar hook appears to be dorsal to the posterior spinal elements. There are periprosthetic lucencies around T3, T4, and T5 screws. The T3 screw enters the disc space. There is no definite osseous bridging between T3-T4, T4-T5, and T10-T11. There is osseous bridging between T5-T10 and T11-S1. Interbody fusions between L4-L5 and L5-S1 are also noted. There is a superior endplate compression deformity with up to 40% height loss at T11. There is junctional hyperkyphosis of the upper thoracic spine with mild anterolisthesis of C7 on T1, T1 on T2, and T2 on T3. There is decreased lordosis of the lumbar spine. There is biapical pleural parenchymal scarring. Mild atherosclerosis of the aortic arch. The abdominal aorta appears normal. Valvular and coronary artery calcifications noted. Left greater than right psoas muscle atrophy and paraspinal muscle atrophy. IMPRESSION: 1. Posterior instrumented fusion from T3 to S1 and posterior iliac wings. 2. The right upper most laminar hook is dorsal to the lamina. 3. Periprosthetic lucencies around the screws at T3-T5 without definite osseous bridging between these levels. 4. Compression fracture of the superior endplate of T11 and no definite osseous bridging at T10-T11. 5. 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 Dictated by: Riley Wilson M.D. The radiology attending physician has personally reviewed this study, and had reviewed and/or edited this written report and agrees with it. Electronically signed by: Mehran Gonsalez M.D. Randell Corona MD [facility] CT PROCEDURES Fi nal Result * CT Thoracic Spine WO Contrast (09/23/2024 8:[address] LIGHT SERVICER) Anatomical Region Laterality Modality Spine N/A Computed Tomogra phy Randell Corona MD IM CT PROCEDURES Fi nal Result * CT Lumbar Spine WO Contrast (09/23/2024 8:[address] LIGHT SERVICER) Anatomical Region Laterality Modality Spine N/A Computed Tomogra phy Result [facility] Randell Corona MD [facility] CT PROCEDURES Fi nal Result * TYPE AND SCREEN 14 DAY (09/15/2024 1:[address] LIGHT SERVICER) Pathologist [facility], indirect Negative ABO Rh A Positive [facility] Blood 09/15/2024 1:[address] LIGHT SERVICER 09/15/2024 4:[address] LIGHT SERVICER Narrative [facility] - 09/15/2024 5:[address] LIGHT SERVICER Has the patient had Daratumumab or Isatuximab in the past 6 months?->Unknown Is this test being ordered in advance for a procedure?->Yes Expected date of procedure:->10/05/24 Has the patient been transfused in the past 3 months?->No Has the patient been in the past 3 months?->No Result [facility] Maged Rainey [facility] BLOOD BANK TEST ORDE ROSALBA Final Result [facility] Department [place] [address] * eGFR (09/15/2024 1:[address] LIGHT SERVICER) Pathologist [facility] eGFR 90 >=60 mL/min/1. 73 m2 Comment: Interpretive Data Reference Interval Normal >/= 90 mL/min/1.73m2 Mildly decreased* 60 - 89 mL/min/1.73m2 Mildly to moderately decreased 45 - 59 mL/min/1.73m2 Moderately to severely decreased 30 - 44 mL/min/1.73m2 Severely decreased 15 - 29 mL/min/1.73m2 Kidney Failure < 15 mL/min/1.73m2 *Relative to young adult level Estimated glomerular filtration rate is determined by the 2020 CKD-EPI equation recommended by the National Kidney Foundation (A Unifying Approach to GFR Estimation: Recommendations of the NKF-ASK Task Force on Reassessing the Inclusion of Race in Diagnosing Kidney Disease, JASN 2020). The CKD-EPI equation should not be used for patients with unstable renal function and has not been validated in children and those over 70. Current interpretive data was last reviewed 2021. Blood 09/15/2024 1:[address] LIGHT SERVICER 09/15/2024 1:[address] LIGHT SERVICER Randell Corona MD LAB BLOOD ORDERABLES Final Result [facility] [address] [facility]. [place] [address] * Differential, auto (09/15/2024 1:[address] LIGHT SERVICER) Neutrophil abs 4.6 1.5 - 6.5 K/cumm Imm gran abs 0.0 0.0 - 0.1 K/cumm [facility] Lymphocyte abs 1.8 0.8 - 3.3 K/cumm [facility] Monocyte abs 0.5 0.2 - 0.8 K/cumm [facility] Eosinophil abs 0.1 0.0 - 0.5 K/cumm [facility] Basophil abs 0.0 0.0 - 0.1 K/cumm [facility] Neutrophil pct 65.1 % [facility] Comment: Interpretive Data Percent cell count reference ranges are not reported, since discordance with absolute values may lead to misinterpretation of CBC data. Current Interpretive Data was last revised on 2017. Imm gran pct 0.4 % [facility] Comment: Interpretive Data Percent cell count reference ranges are not reported, since discordance with absolute values may lead to misinterpretation of CBC data. Current Interpretive Data was last revised on 2017. Lymphocyte pct 25.4 % [facility] Comment: Interpretive Data Percent cell count reference ranges are not reported, since discordance with absolute values may lead to misinterpretation of CBC data. Current Interpretive Data was last revised on 2017. Monocyte pct 6.7 % [facility] Comment: Interpretive Data Percent cell count reference ranges are not reported, since discordance with absolute values may lead to misinterpretation of CBC data. Current Interpretive Data was last revised on 2017. Eosinophil pct 1.8 % [facility] Comment: Interpretive Data Percent cell count reference ranges are not reported, since discordance with absolute values may lead to misinterpretation of CBC data. Current Interpretive Data was last revised on 2017. Basophil pct 0.6 % [facility] Comment: Interpretive Data Percent cell count reference ranges are not reported, since discordance with absolute values may lead to misinterpretation of CBC data. Current Interpretive Data was last revised on 2017. Blood 09/15/2024 1:[address] LIGHT SERVICER 09/15/2024 1:[address] LIGHT SERVICER Randell Corona MD LAB BLOOD ORDERABLES Final Result [facility] [address] [facility]. [place] [address] * (ABNORMAL) CBC with auto differential (09/15/2024 1:[address] LIGHT SERVICER) WBC 7.0 3.8 - 9.9 K/cumm Hgb 13.7 11.9 - 15.5 g/dL [facility] Hct 41.9 35.6 - 45.5 % [facility] Plt 264 150 - 400 K/cumm [facility] MPV 10.1 9.1 - 12.3 fL [facility] RBC 4.97 3.90 - 5.20 M/cumm [facility] MCV 84.3 81.3 - 96.4 fL [facility] MCH 27.6 27.1 - 33.3 pg [facility] MCHC 32.7 32.3 - 35.7 g/dL [facility] RDW CV 15.6(H) 11.1 - 14.9 % [facility] RDW SD 47.2 35.7 - 48.1 fL [facility] NRBC abs 0.00 0.00 - 0.01 K/cumm [facility] Blood 09/15/2024 1:[address] LIGHT SERVICER 09/15/2024 1:[address] LIGHT SERVICER Randell Corona MD LAB BLOOD ORDERABLES Final Result Performing Organization Address [facility] de Phone Number [facility] [address] [facility] [employer] [place] [address] * Vitamin D 25 hydroxy (09/15/2024 1:[address] LIGHT SERVICER) Pathologist [facility] Vitamin D 25-OH 42 30 - 80 ng/mL Blood 09/15/2024 1:[address] LIGHT SERVICER 09/15/2024 1:[address] LIGHT SERVICER Randell Corona MD LAB BLOOD ORDERABLES Final Result Performing Organization Address [facility] de Phone Number [facility] [address] [facility] [place] [employer] [place] [address] * Erythrocyte sedimentation rate (09/15/2024 1:[address] LIGHT SERVICER) Erythrocyte sedimentation rate 13 1 - 30 mm/hr Blood 09/15/2024 1:[address] LIGHT SERVICER 09/15/2024 1:[address] LIGHT SERVICER Randell Corona MD LAB BLOOD ORDERABLES Final Result Performing Organization Address [facility] Co de Phone Number [facility] [address] [facility] [place] [employer] [place] [address] * CRP (acute phase) (09/15/2024 1:[address] LIGHT SERVICER) [facility] CRP <3.0 <=10.0 mg/L Blood 09/15/2024 1:[address] LIGHT SERVICER 09/15/2024 1:[address] LIGHT SERVICER Randell Corona MD LAB BLOOD ORDERABLES Final Result Performing Organization Address [facility] de Phone Number [facility] [address] [facility] [employer] [place] [address] * Hemoglobin A1c (09/15/2024 1:[address] LIGHT SERVICER) [facility] Hgb A1C 5.5 4.0 - 5.6 % Estimated Average Glucose 111 mg/dL [facility] Comment: The ADA recommends reporting an estimated Average Glucose (eAG) with all Hemoglobin A1c results using the equation derived from a study of 507 normal and diabetic adults. Minority populations were underrepresented and children were not included. (Diabetes Care 31:5069-4928, 2008). The eAG is not equivalent to a fasting glucose. Blood 09/15/2024 1:[address] LIGHT SERVICER 09/15/2024 1:[address] LIGHT SERVICER Randell Corona MD LAB BLOOD ORDERABLES Final Result Performing Organization Address [facility] de Phone Number [facility] [address] [facility] [place] [address] * Comprehensive metabolic panel (09/15/2024 1:[address] LIGHT SERVICER) [facility] Sodium 135 135 - 145 mmol/L Potassium, pl 4.4 3.3 - 4.9 mmol/L [facility] Chloride 99 97 - 110 mmol/L [facility] CO2 24 22 - 32 mmol/L [facility] Anion gap 13 2 - 15 mmol/L [facility] BUN 19 6 - 25 mg/dL [facility] Creatinine 0.66 0.60 - 1.10 mg/dL [facility] Glucose 115 70 - 199 mg/dL [facility] Comment: Interpretive Data Fasting glucose >/= 126 mg/dl is diagnostic for diabetes. Fasting is defined as no caloric intake for at least 8 hours. Fasting glucose between 100 mg/dl to 125 mg/dl is diagnostic of prediabetes. In a patient with classic symptoms of hyperglycemia or hyperglycemic crisis, a random glucose >/= 200 mg/dl is diagnostic for diabetes. In the absence of unequivocal hyperglycemia, results should be confirmed by repeat testing. The classification and Diagnosis of Diabetes Diabetes Care 2021; 46: S19-S40. Current interpretive data was last revised 2022. Calcium 9.7 8.5 - 10.3 mg/dL [facility] Bilirubin, total 0.3 0.1 - 1.2 mg/dL [facility] Protein, pl 7.6 6.5 - 8.5 g/dL [facility] Albumin 4.1 3.5 - 5.0 g/dL [facility] Alk phos 90 40 - 130 Units/L [facility] ALT 18 7 - 45 Units/L [facility] AST 18 10 - 45 Units/L [facility] Blood 09/15/2024 1:[address] LIGHT SERVICER 09/15/2024 1:[address] LIGHT SERVICER Randell Corona MD LAB BLOOD ORDERABLES Final Result [facility] [address] [facility] Department [place] [address] * Urinalysis reflex to microscopic and culture Urine, clean voided (09/15/2024 1:[address] LIGHT SERVICER) Color, ur Straw Yellow Clarity, ur Clear Clear [facility] Specific gravity, ur 1.018 1.003 - 1.030 [facility] pH, urine 8.0 [facility] Comment: Interpretive Data U rine pH is affected by diet, medications, systemic acid-base disturbances, and renal tubular function. pH may affect urinary stone formation. For example, urine pH below 6.0 may help reduce the tendency for calcium phosphate stones and pH greater than 6.0 may reduce the tendency for uric acid stone formation. Source: [facility] Current Interpretive Data was last revised on 2017 Protein, ur ql Negative Negative [facility] Glucose, ur ql Negative Negative [facility] Ketones, ur Negative Negative [facility] Bilirubin, ur Negative Negative [facility] Blood, ur Negative Negative [facility] Urobilinogen, ur <2.0 <2.0 mg/dL [facility] Nitrite, ur Negative Negative [facility] Leukocyte esterase, ur Negative Negative [facility] UA reflex comment Reflex conditions for microscopic UA and culture not met. [facility] Urine, clean voided 09/15/2024 1:[address] LIGHT SERVICER 09/15/2024 1:[address] LIGHT SERVICER Randell Corona MD LAB MICROBIOLOGY - [facility] ORDERABLES Final Result [facility] [address] [facility] Department [place] [address] * Nicotine metabolite screen, urine (09/15/2024 1:[address] LIGHT SERVICER) Nicotine, ur <5.0 <5.0 ng/mL [facility] Cotinine, ur <5.0 <5.0 ng/mL [facility] [place] ur <2.0 <2.0 ng/mL [facility] Comment: ADDITIONAL INFORMATION This test was developed and its performance characteristics determined by [facility] in a manner consistent with CLIA requirements. This test has not been cleared or approved by the U.S. Food and Drug Administration. Test Performed by: [facility] - [address] [address] Digital [employer] Press Operator: Nedra Hill Ph.D.; CLIA# [id number] Nornicotine, ur <2.0 <2.0 ng/mL [facility] Urine 09/15/2024 1:[address] LIGHT SERVICER 09/15/2024 1:[address] LIGHT SERVICER us Randell Corona MD LAB URINE ORDERABLES Final Result [facility] [address] [facility]. [place] [address] [facility] * XR Scoliosis 6 or More Views (09/15/2024 9:[address] LIGHT SERVICER) Anatomical Region Laterality Modality Spine N/A Computed Radiogr aphy 09/15/2024 11:[address] LIGHT SERVICER Impressions 09/15/2024 12:[address] LIGHT SERVICER 1. Unchanged T3-pelvis posterior instrumented fusion with combined L4-S1 anterior interbody fusion and unchanged discontinuity of the left vertical jacqueline at L4-L5. 2. Severe cervical spine degenerative disc disease with moderate adynamic anterolisthesis of C3 on C4. Dictated by: Kervin Klein MD The radiology attending physician has personally reviewed this study, and had reviewed and/or edited this written report and agrees with it. Electronically signed by: Evens Boyer D.O. Narrative 09/15/2024 12:[address] LIGHT SERVICER EXAMINATION: XR SCOLIOSIS 6 OR MORE VIEWS HISTORY: Spinal fusion FINDINGS: Standing frontal and lateral radiographs of the entire spine and lower extremities were obtained using the EOS system. Flexion and extension views of the cervical spine as well as dedicated views of the spinal instrumentation levels are obtained interpreted with comparison to multiple prior radiographs, most recently 05/31/2024. Left hip arthroplasty is noted. Unchanged appearance of T3-pelvis posterior instrumented fusion with combined anterior interbody fusion at L4-L5 and L5-S1. There is unchanged discontinuity of the left vertical jacqueline at the L4-L5 level. Unchanged lucency around the left T3 pedicle screw.r there is focal kyphosis at T2-T3. Vertebral body heights are preserved. There is severe cervical degenerative disc disease at multiple levels with unchanged moderate anterolisthesis of C3 on C4 which is unchanged with flexion and extension. No significant scoliotic curvature, truncal imbalance, or pelvic obliquity. Procedure Note BoyerEvens howe, - 09/15/2024 EXAMINATION: XR SCOLIOSIS 6 OR MORE VIEWS HISTORY: Spinal fusion FINDINGS: Standing frontal and lateral radiographs of the entire spine and lower extremities were obtained using the EOS system. Flexion and extension views of the cervical spine as well as dedicated views of the spinal instrumentation levels are obtained interpreted with comparison to multiple prior radiographs, most recently 05/31/2024. Left hip arthroplasty is noted. Unchanged appearance of T3-pelvis posterior instrumented fusion with combined anterior interbody fusion at L4-L5 and L5-S1. There is unchanged discontinuity of the left vertical jacqueline at the L4-L5 level. Unchanged lucency around the left T3 pedicle screw.r there is focal kyphosis at T2-T3. Vertebral body heights are preserved. There is severe cervical degenerative disc disease at multiple levels with unchanged moderate anterolisthesis of C3 on C4 which is unchanged with flexion and extension. No significant scoliotic curvature, truncal imbalance, or pelvic obliquity. IMPRESSION: 1. Unchanged T3-pelvis posterior instrumented fusion with combined L4-S1 anterior interbody fusion and unchanged discontinuity of the left vertical jacqueline at L4-L5. 2. Severe cervical spine degenerative disc disease with moderate adynamic anterolisthesis of C3 on C4. Dictated by: Kervin Klein MD The radiology attending physician has personally reviewed this study, and had reviewed and/or edited this written report and agrees with it. Electronically signed by: Evens Boyer D.O. Randell Corona MD IMG XR PROCEDURES Fi nal Result * DEXA Axial Skeleton Bone Density Multi Site (07/23/2024 3:[address] LIGHT SERVICER) Anatomical Region Laterality Modality Body N/A Radiographic Shira ging Randell Corona MD IMG DXA PROCEDURES F inal Result from Last 3 Months or Most Recently Relevant to Health Maintenance Additional Health Concerns Infection Onset Date Last Indicated C. difficile 10/14/2024 10/14/2024 Insurance MEDICARE [facility] MEDICARE SUPPLEMENT MEDICARE [facility] TRADITIONAL MEDICARE [facility] MEDICARE SUPPLEMENT Advance Directives For more information, please contact: [phone] * Full Code (Latest Code Status on File) Date Activated Date Inactivated Comments 10/06/2024 1:51 PM 10/29/2024 8:29 PM * Full Code Date Activated Date Inactivated Comments 10/05/2024 10:15 PM 10/06/2024 1:51 PM * Full Code Date Activated Date Inactivated Comments 10/04/2024 12:14 PM 10/05/2024 4:42 AM * Full Code Date Activated Date Inactivated Comments 04/19/2019 3:50 PM 04/21/2019 2:21 PM Care Teams Office Support Associate Relationship Specialty Start Date End Date Elgin Chan MD PCP - General Family Medicine 05/31/24
--- OUTSIDE RECORDS SUMMARY | 2024-11-14 12:46 | XMS_ITS | Encounter Summary ---
Author Organization [facility] Address [address] [place] [address] Care Team Providers Care Boat Canvas Maker And Installer Name Role Phone Elgin Chan MD Primary Care Provide r Reason for Referral * CT Scan (Routine) - Closed Specialty Diagnoses / Procedures Referred By Contac t Referred To Contact Radiology Diagnoses AP (abdominal pain) Procedures CT ABDOMEN PELVIS W CONTRAST Fan Damon MD [address] [place] [phone] Phone: tel: fax: [facility] CT Scan [address] [address] Phone: tel: fax: Referral ID Status Reason Start Date Expiration Date V isits Requested Visits Authorized [id number] [facility] 05/16/2020 06/16/2021 1 1 Encounter Details Date Type Department Care Team (Late st Contact Info) Description 05/16/2020 Ancillary Orders [facility] Central Test Scheduling [address] [phone] Fan Damon MD [address] [place] [phone] AP (abdominal pain) Social History Tobacco Use Types Packs/Day Years Used Date Smoking Tobacco: Never Cigarettes Smokeless Tobacco: Never Alcohol Use Standard Drinks/Week Comments Yes 0 (1 standard drink = 0.6 oz pur e alcohol) social Comments No Sex and Gender Information Value Date Recorded Sex Assigned at Not on file Legal Sex Female 11:13 AM CENTRAL SERVICES TECH Gender Identity Not on file Sexual Orientation Not on file Occupation Industry Job Start Date Job End Date Not on file Not on file Not on file Not on file COVID-19 Exposure Response Date Recorded In the last month, have you been in contact with someone who was confirmed or suspected to have Coronavirus / COVID-19? No / Unsure 05/17/2020 2:54 PM CDT documented as of this encounter Plan of Treatment Upcoming Encounters Date Type Department Care Team (Late st Contact Info) Description 02/23/2025 8:00 AM CDT Appointment [facility] Hyperbaric Outpatient Wound [place] [address] [place] [phone] Jenise Spann MD [address] [place] [address] documented as of this encounter Results * CT ABDOMEN PELVIS W CONTRAST (05/25/2020 9:39 AM CDT) Anatomical Region Laterality Modality Abdomen Computed Tomogra phy 05/25/2020 9:41 AM CDT Impressions 05/25/2020 10:00 AM CDT IMPRESSION: 1. No acute abdominopelvic abnormality. 2. Moderate colonic stool burden. Correlate for constipation. 3. Extensive post surgical changes of the spine, pelvis, and proximal LEFT femur. Narrative 05/25/2020 10:00 AM CDT EXAM DATE: 05/25/2020 9:49 AM EXAM: CT ABDOMEN PELVIS W CONTRAST INDICATION: Abdominal pain. COMPARISON: None. TECHNIQUE: Multiple axial CT images of the abdomen and pelvis with IV contrast material. Oral contrast was administered. Reformatted coronal images are submitted. FINDINGS: Lung bases: Linear atelectatic changes present in both lung bases. No pleural effusions. Solid organs: The liver, spleen, pancreas, adrenal glands, and kidneys are within normal limits. The gallbladder is within normal limits. No intra or extrahepatic biliary ductal dilatation. Gastrointestinal: Moderate colonic stool burden. The stomach, small intestine, and large intestine are otherwise unremarkable. Appendix is nonvisualized. No secondary sign of appendicitis. No free intraperitoneal air or fluid. Lymph nodes: No pathologically enlarged lymph nodes. Vascular: No aneurysm. Otherwise, unremarkable. Musculoskeletal: No acute fracture or dislocation. No aggressive osseous lesion. Extensive post surgical changes of the thoracic, lumbar, sacral spine as well as both sacroiliac joints and LEFT proximal femur. Pelvic contents: No pelvic adenopathy, free fluid, or inflammatory process. Urinary bladder is unremarkable. Limitations: Streak artifact from patient's extensive orthopedic hardware limits evaluation somewhat. Procedure Note Randell Galeano MD - 05/25/2020 EXAM DATE: 05/25/2020 9:49 AM EXAM: CT ABDOMEN PELVIS W CONTRAST INDICATION: Abdominal pain. COMPARISON: None. TECHNIQUE: Multiple axial CT images of the abdomen and pelvis with IV contrast material. Oral contrast was administered. Reformatted coronal images are submitted. FINDINGS: Lung bases: Linear atelectatic changes present in both lung bases. No pleural effusions. Solid organs: The liver, spleen, pancreas, adrenal glands, and kidneys are within normal limits. The gallbladder is within normal limits. No intra or extrahepatic biliary ductal dilatation. Gastrointestinal: Moderate colonic stool burden. The stomach, small intestine, and large intestine are otherwise unremarkable. Appendix is nonvisualized. No secondary sign of appendicitis. No free intraperitoneal air or fluid. Lymph nodes: No pathologically enlarged lymph nodes. Vascular: No aneurysm. Otherwise, unremarkable. Musculoskeletal: No acute fracture or dislocation. No aggressive osseous lesion. Extensive post surgical changes of the thoracic, lumbar, sacral spine as well as both sacroiliac joints and LEFT proximal femur. Pelvic contents: No pelvic adenopathy, free fluid, or inflammatory process. Urinary bladder is unremarkable. Limitations: Streak artifact from patient's extensive orthopedic hardware limits evaluation somewhat. IMPRESSION: 1. No acute abdominopelvic abnormality. 2. Moderate colonic stool burden. Correlate for constipation. 3. Extensive post surgical changes of the spine, pelvis, and proximal LEFT femur. Fan Damon MD CT ORDERABLES Final Result documented in this encounter Visit Diagnoses Diagnosis AP (abdominal pain) Abdominal pain, unspecified site AP (abdominal pain) Abdominal pain, unspecified site documented in this encounter Care Teams Boat Canvas Maker And Installer Relationship Specialty Start Date End Date Elgin Chan MD [address] [place] [phone] PCP - General Family Practice 06/26/21 documented as of this encounter
--- OUTSIDE RECORDS SUMMARY | 2024-11-14 12:46 | XMS_ITS | Encounter Summary ---
Author Organization [facility] Address [address] [facility] [place] [address] Care Team Providers Care Egg Sorter Name Role Phone Elgin Chan MD Primary Care Provide r Reason for Referral * Outpatient Services (Routine) - Closed Specialty Diagnoses / Procedures Referred By Contac t Referred To Contact Diagnoses Breast lump or mass Procedures MAMMO BREAST US RIGHT LTD Thomas Zambrano MD Phone: tel: fax: Referral ID Status Reason Start Date Expiration Date Visits Re quested Visits Authorized [id number] Closed 03/16/2015 04/15/2016 1 1 Encounter Details Date Type Department Care Team (Late st Contact Info) Description 03/16/[address] [facility] Internal Medicine [place] [address] [place], [place] [address] [phone] Thomas Zambrano MD [place] [phone] Breast lump or mass (Primary Dx) Social History Tobacco Use Types Packs/Day Years Used Date Smoking Tobacco: Never Cigarettes Smokeless Tobacco: Never Alcohol Use Standard Drinks/Week Comments Yes 0 (1 standard drink = 0.6 oz pur e alcohol) social Comments No Sex and Gender Information Value Date Recorded Sex Assigned at Not on file Legal Sex Female 11:13 AM JAVA DESIGNER Gender Identity Not on file Sexual Orientation Not on file Occupation Industry Job Start Date Job End Date Not on file Not on file Not on file Not on file documented as of this encounter Plan of Treatment Upcoming Encounters Date Type Department Care Team (Late st Contact Info) Description 02/23/2025 8:00 AM CDT Appointment [facility] Outpatient Wound [place] [address] [place] [phone] Jenise Spann MD [address] [place] [phone] documented as of this encounter Results * MAMMO BREAST US RIGHT LTD (03/16/2015 2:49 PM CDT) Anatomical Region Laterality Modality Right Ultrasound Impressions 03/16/2015 4:05 PM CDT : Negative ultrasound exam. BIRADS 2. MH/db Narrative 03/16/2015 4:05 PM CDT RIGHT BREAST ULTRASOUND, 03/16/15: FINDINGS: Sonography of the area of concern in the right breast where there may be a palpable lesion demonstrates no cystic or solid mass lesions. us Thomas Zambrano MD MAMMO ORDERABLES Final Result documented in this encounter Visit Diagnoses Diagnosis Breast lump or mass- Primary Lump or mass in breast Breast lump or mass Lump or mass in breast documented in this encounter Care Teams Egg Sorter Relationship Specialty Start Date End Date Elgin Chan MD [facility] [place] [address] [place] [address] PCP - General Family Practice 06/26/21 documented as of this encounter
--- OUTSIDE RECORDS SUMMARY | 2024-11-14 12:46 | XMS_ITS | Encounter Summary ---
Author Organization [facility] Address [address] [place] [address] Care Team Providers Care Storm Door Maker Name Role Phone Elgin Chan MD Primary Care Provide r Encounter Details Date Type Department Care Team (Late st Contact Info) Description 09/19/2015 Ancillary Orders [facility] Imaging Services [place] [address] [place] [phone] Isra Crowell MD [address] [place] [address] Scoliosis (Primary Dx); Kyphosis Social History Tobacco Use Types Packs/Day Years Used Date Smoking Tobacco: Never Cigarettes Smokeless Tobacco: Never Alcohol Use Standard Drinks/Week Comments Yes 0 (1 standard drink = 0.6 oz pur e alcohol) social Comments No Sex and Gender Information Value Date Recorded Sex Assigned at Not on file Legal Sex Female 11:13 AM JAVA GROOVY DEVELOPER Gender Identity Not on file Sexual Orientation Not on file Occupation Industry Job Start Date Job End Date Not on file Not on file Not on file Not on file documented as of this encounter Plan of Treatment Upcoming Encounters Date Type Department Care Team (Late st Contact Info) Description 02/23/2025 8:[address] [facility] Wound [place] [address] [place] [phone] Jenise Spann MD [address] [place] [phone] documented as of this encounter Results * XR SPINE SCOLIOSIS 2 VW STANDING (09/19/2015 12:47 PM JAVA GROOVY DEVELOPER) Anatomical Region Laterality Modality Spine Computed Radiogr aphy Impressions 09/20/2015 4:03 PM JAVA GROOVY DEVELOPER : 1. Extensive fixation of the thoracolumbar spine without evidence of hardware complication. 2. Very minimal scoliosis of the thoracolumbar spine. SM/db Narrative 09/20/2015 4:03 PM JAVA GROOVY DEVELOPER TWO-VIEW X-RAY OF THE SPINE FOR SCOLIOSIS SCREENING, 09/19/15: HISTORY: Scoliosis and kyphosis. Status post fusion. FINDINGS: Two views of the spine were obtained for scoliosis screening. There is minimal scoliosis of the thoracolumbar spine. The patient is status post extensive fixation of the spine. Degenerative disc disease is present. No compression fracture is noted. No hardware complication of the fixation is noted. Isra Crowell MD DIAGNOSTIC IMAGING [facility] Final Result documented in this encounter Visit Diagnoses Diagnosis Scoliosis Scoliosis (and kyphoscoliosis), idiopathic Kyphosis Kyphosis (acquired) (postural) Scoliosis- Primary Scoliosis (and kyphoscoliosis), idiopathic Kyphosis Kyphosis (acquired) (postural) documented in this encounter Care Teams Storm Door Maker Relationship Specialty Start Date End Date Elgin Chan MD [address] [place] [address] PCP - General Family Practice 06/26/21 documented as of this encounter
--- OUTSIDE RECORDS SUMMARY | 2024-11-14 12:46 | XMS_ITS | Encounter Summary ---
Author Organization [facility] Address [address] [place] [address] Care Team Providers Care Concrete Fence Builder Name Role Phone Elgin Chan MD Primary Care Provide r Reason for Referral * Outpatient Services (Routine) - Closed Specialty Diagnoses / Procedures Referred By Contac t Referred To Contact Diagnoses Cervical stenosis (uterine cervix) Radiculopathy Procedures CT CERVICAL SPINE WO CONTRAST Isra Crowell MD Phone: tel: fax: Referral ID Status Reason Start Date Expiration Date Visits Re quested Visits Authorized [id number] Closed 09/22/2015 10/22/2016 1 1 SERVICES COORDINATOR * Outpatient Services (Routine) - Closed Specialty Diagnoses / Procedures Referred By Contac t Referred To Contact Radiology Diagnoses Cervical stenosis (uterine cervix) Radiculopathy Procedures MRI CERVICAL WO CONTRAST Isra Crowell MD Phone: tel: fax: [facility] [place] [id number] [address] Phone: tel: fax: Referral ID Status Reason Start Date Expiration Date Visits Re quested Visits Authorized [id number] Closed 09/22/2015 10/22/2016 1 1 SERVICES COORDINATOR Encounter Details Date Type Department Care Team (Late Contact Info) Description 09/22/2015 Ancillary Orders [facility] Central Test Scheduling [place] [address] [place] [address] Isra Crowell MD [address] [place] [address] Cervical stenosis (uterine cervix) (Primary Dx); Radiculopathy Social History Tobacco Use Types Packs/Day Years Used Date Smoking Tobacco: Never Cigarettes Smokeless Tobacco: Never Alcohol Use Standard Drinks/Week Comments Yes 0 (1 standard drink = 0.6 oz pur e alcohol) social Comments No Sex and Gender Information Value Date Recorded Sex Assigned at Not on file Legal Sex Female 11:13 AM FOOD SERVICES COORDINATOR Gender Identity Not on file Sexual Orientation Not on file Occupation Industry Job Start Date Job End Date Not on file Not on file Not on file Not on file documented as of this encounter Plan of Treatment Upcoming Encounters Date Type Department Care Team (Late Contact Info) Description 02/23/2025 8:00 AM CDT Appointment [facility] [place] [address] [place] [address] Jenise Spann MD [address] [place] [phone] documented as of this encounter Results * MRI CERVICAL WO CONTRAST (10/05/2015 10:14 AM FOOD SERVICES COORDINATOR) Anatomical Region Laterality Modality Spine Magnetic Resonan ce Impressions 10/05/2015 4:27 PM FOOD SERVICES COORDINATOR : 1. Multilevel degenerative disc changes are identified with bulging discs and uncovertebral joint hypertrophy, as described above. 2. Small left paracentral disc bulge/protrusion at C4-5 with minimal effacement of the cord. 3. Mild anterolisthesis of C3 on C4. MR/db Narrative 10/05/2015 4:27 PM FOOD SERVICES COORDINATOR MRI CERVICAL SPINE WITHOUT CONTRAST, 10/05/15: CLINICAL HISTORY: This is a 69-year-old female with neck pain and radiculopathy. TECHNIQUE: Multiplanar, multisequence images were obtained of the cervical spine without contrast. INTERPRETATION: The vertebral bodies are normal in height. The signal intensity within the vertebral bodies and cervical cord is normal. C3-4: Mild bulging disc is identified. There is approximately 1 mm of anterolisthesis. I see no cord compression. There is mild narrowing of the neural foramina. C4-5: There is broad-bulging disc, slightly asymmetric to the left, and there may be minimal cord effacement. There is uncovertebral joint hypertrophy with narrowing of the neural foramina, greater on the left. C5-6: Mild bulging disc and mild uncovertebral joint hypertrophy with mild narrowing of the neural foramina. C6-7: Mild bulging disc and mild uncovertebral joint hypertrophy with mild narrowing of the neural foramina. us Isra Crowell MD MR ORDERABLES Final R esult * CT CERVICAL SPINE WO CONTRAST (10/05/2015 9:48 AM FOOD SERVICES COORDINATOR) Anatomical Region Laterality Modality Spine Computed Tomogra phy 10/05/2015 10:5 4 AM FOOD SERVICES COORDINATOR Impressions 10/05/2015 3:57 PM FOOD SERVICES COORDINATOR : 1. Multilevel degenerative disc changes are identified in the cervical spine, as described above. 2. Anterolisthesis of C3 on C4 which appears to be on degenerative basis. 3. Uncovertebral joint hypertrophy with narrowing of the neural foramina, greatest at C6-7 on the right. MR/db Narrative 10/05/2015 3:57 [address] OF THE CERVICAL SPINE WITHOUT CONTRAST, 10/05/15: CLINICAL HISTORY: This is a 70-year-old female with a history of cervical stenosis and radiculopathy. TECHNIQUE: Axial images were obtained through the cervical spine. Sagittal and coronal reconstruction images were obtained. INTERPRETATION: The vertebral bodies are normal in height. There is disc space narrowing, greatest at C4-5 through C6-7. There is anterolisthesis of C3 on C4 of approximately 2 mm. C2-3: Minimal bulging disc and no cord effacement. C3-4: Again, anterolisthesis is identified. There is uncovertebral hypertrophy with mild narrowing of the neural foramina. C4-5: Bulging disc osteophyte complex but no significant cord effacement. C5-6: Bulging disc osteophyte complex with mild canal stenosis. C6-7: Bulging disc osteophyte complex. There is uncovertebral joint hypertrophy with narrowing of the neural foramina, greater on the right. Isra Crowell MD CT ORDERABLES Final R esult documented in this encounter Visit Diagnoses Diagnosis Cervical stenosis (uterine cervix)- Primary Stricture and stenosis of cervix Radiculopathy Neuralgia, neuritis, and radiculitis, unspecified Cervical stenosis (uterine cervix) Stricture and stenosis of cervix Radiculopathy Neuralgia, neuritis, and radiculitis, unspecified Cervical stenosis (uterine cervix) Stricture and stenosis of cervix Radiculopathy Neuralgia, neuritis, and radiculitis, unspecified documented in this encounter Care Teams Concrete Fence Builder Relationship Specialty Start Date End Date Elgin Chan MD [address] [place] [phone] PCP - General Family Practice 06/26/21 documented as of this encounter
--- OUTSIDE RECORDS SUMMARY | 2024-11-14 12:46 | XMS_ITS | Encounter Summary ---
Author Organization [facility] Address [address] [place] [address] Care Team Providers Care Medical Associate Name Role Phone Elgin Chan MD Primary Care Provide r Encounter Details Date Type Department Care Team (Late st Contact Info) Description 09/19/2015 Ancillary Orders [facility] Imaging Services [address] [place] [phone] Isra Crowell MD [address] [place] [address] Scoliosis (Primary Dx); Kyphosis Social History Tobacco Use Types Packs/Day Years Used Date Smoking Tobacco: Never Cigarettes Smokeless Tobacco: Never Alcohol Use Standard Drinks/Week Comments Yes 0 (1 standard drink = 0.6 oz pur e alcohol) social Comments No Sex and Gender Information Value Date Recorded Sex Assigned at Not on file Legal Sex Female 11:13 AM VISITING HOUSEKEEPER Gender Identity Not on file Sexual Orientation Not on file Occupation Industry Job Start Date Job End Date Not on file Not on file Not on file Not on file documented as of this encounter Plan of Treatment Upcoming Encounters Date Type Department Care Team (Late st Contact Info) Description 02/23/2025 8:00 AM CDT Appointment [facility] [address] [place] [phone] Jenise Spann MD [address] [place] [phone] documented as of this encounter Results * XR CERVICAL SPINE 2 OR 3 VIEWS (09/19/2015 12:47 PM VISITING HOUSEKEEPER) Anatomical Region Laterality Modality Spine Computed Radiogr aphy Impressions 09/19/2015 2:45 PM VISITING HOUSEKEEPER : 1. Degenerative disc changes are identified, greatest at C4 through C7. 2. Anterolisthesis is identified at C3-4 and C7-T1. MR/db Narrative 09/19/2015 2:45 PM VISITING HOUSEKEEPER CERVICAL SPINE, TWO VIEWS, 09/19/15: CLINICAL HISTORY: Kyphosis and scoliosis. INTERPRETATION: The vertebral bodies are normal in height. There is disc space narrowing, greatest at C4-5 and C5-6. There is 4 mm of anterolisthesis of C3 on C4. There is 1 mm of anterolisthesis of C7 on T1. Postoperative changes are identified from fusion of the thoracic spine. Isra Crowell MD [facility] Final Result documented in this encounter Visit Diagnoses Diagnosis Scoliosis- Primary Scoliosis (and kyphoscoliosis), idiopathic Kyphosis Kyphosis (acquired) (postural) Scoliosis Scoliosis (and kyphoscoliosis), idiopathic Kyphosis Kyphosis (acquired) (postural) documented in this encounter Care Teams Medical Associate Relationship Specialty Start Date End Date Elgin Chan MD [facility] [address] [place] [phone] PCP - General Family Practice 06/26/21 documented as of this encounter
--- OUTSIDE RECORDS SUMMARY | 2024-11-14 12:46 | XMS_ITS | Encounter Summary ---
Author Organization 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 Name Role Phone Elgin Chan MD Primary Care Provide r Reason for Referral * MRI (Routine) - Closed Specialty Diagnoses / Procedures Referred By Contac t Referred To Contact Radiology Diagnoses Cervical stenosis of spine Procedures MRI CERVICAL WO CONTRAST Isra Crowell MD Phone: tel: fax: [facility] MRI [place] [address] To [facility] [address] [place] [phone] Phone: tel: fax: Referral ID Status Reason Start Date Expiration Date V isits Requested Visits Authorized [id number] Closed [facility] C[facility] to Schedule 06/07/2020 07/08/2021 1 1 Encounter Details Date Type Department Care Team (Late st Contact Info) Description 06/07/2020 Ancillary Orders [facility] Test Scheduling [address] [phone] [place] [address] [place] [phone] Cervical stenosis of spine Social History Tobacco Use Types Packs/Day Years Used Date Smoking Tobacco: Never Cigarettes Smokeless Tobacco: Never Alcohol Use Standard Drinks/Week Comments Yes 0 (1 standard drink = 0.6 oz pur e alcohol) social Comments No Sex and Gender Information Value Date Recorded Sex Assigned at Not on file Legal Sex Female 11:13 AM 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 No / Unsure 06/08/2020 11:11 AM CDT documented as of this encounter Plan of Treatment Upcoming Encounters Date Type Department Care Team (Late st Contact Info) Description 02/23/2025 8:00 AM CDT Appointment [facility] Hyperbaric Outpatient Wound [place] [address] [place] [address] Jenise Spann MD [address] [place] [address] documented as of this encounter Results * MRI CERVICAL WO CONTRAST (06/20/2020 2:41 PM COMMUNICATION SPECIALIST) Anatomical Region Laterality Modality Spine Magnetic Resonan ce 06/20/2020 2:47 PM COMMUNICATION SPECIALIST Impressions 06/20/2020 2:53 PM COMMUNICATION SPECIALIST IMPRESSION: 1. Moderate spinal canal stenosis with moderate bilateral neural foraminal narrowing at C3-4. 2. Mild spinal canal stenosis at C4-5. 3. Mild to moderate spinal canal stenosis at C5-6. 4. Mild to moderate spinal canal stenosis with mild bilateral neural foraminal narrowing at C6-7. Narrative 06/20/2020 2:53 PM COMMUNICATION SPECIALIST MRI cervical spine without contrast 06/20/2020 COMPARISON: None. HISTORY: 75-year-old female with cervical spine stenosis. TECHNIQUE: Sagittal T1, sagittal and axial T2, sagittal STIR and axial gradient echo images were performed through the cervical spine without contrast. FINDINGS: There is mild patient motion artifact throughout the image acquisition. The cervical vertebral bodies maintain normal heights. There is kyphosis of the cervical spine extending from C3 to C7. There is grade I anterolisthesis of C3 in relationship to C4. The bone marrow signal is normal. There is severe loss of disc height from C3-4 to C6-7. There is moderate loss of disc height at C7-T1. The cervical spinal cord demonstrates normal size and signal. At C3-4 there is a pseudodisc protrusion secondary to the anterolisthesis of C3 in relationship to C4. There is bilateral facet hypertrophy. There is moderate spinal canal stenosis with moderate bilateral neural foraminal narrowing. At C4-5 there is a mild broad-based disc osteophyte complex contributing to mild spinal canal stenosis. At C5-6 there is a broad-based disc osteophyte complex contributing to mild to moderate spinal canal stenosis. At C6-7 there is a broad-based disc osteophyte complex with bilateral uncovertebral joint hypertrophy contributing to mild to moderate spinal canal stenosis and mild bilateral neural foraminal narrowing. Procedure Note Carlo Tyson MD - 06/20/2020 MRI cervical spine without contrast 06/20/2020 COMPARISON: None. HISTORY: 75-year-old female with cervical spine stenosis. TECHNIQUE: Sagittal T1, sagittal and axial T2, sagittal STIR and axial gradient echo images were performed through the cervical spine without contrast. FINDINGS: There is mild patient motion artifact throughout the image acquisition. The cervical vertebral bodies maintain normal heights. There is kyphosis of the cervical spine extending from C3 to C7. There is grade I anterolisthesis of C3 in relationship to C4. The bone marrow signal is normal. There is severe loss of disc height from C3-4 to C6-7. There is moderate loss of disc height at C7-T1. The cervical spinal cord demonstrates normal size and signal. At C3-4 there is a pseudodisc protrusion secondary to the anterolisthesis of C3 in relationship to C4. There is bilateral facet hypertrophy. There is moderate spinal canal stenosis with moderate bilateral neural foraminal narrowing. At C4-5 there is a mild broad-based disc osteophyte complex contributing to mild spinal canal stenosis. At C5-6 there is a broad-based disc osteophyte complex contributing to mild to moderate spinal canal stenosis. At C6-7 there is a broad-based disc osteophyte complex with bilateral uncovertebral joint hypertrophy contributing to mild to moderate spinal canal stenosis and mild bilateral neural foraminal narrowing. IMPRESSION: 1. Moderate spinal canal stenosis with moderate bilateral neural foraminal narrowing at C3-4. 2. Mild spinal canal stenosis at C4-5. 3. Mild to moderate spinal canal stenosis at C5-6. 4. Mild to moderate spinal canal stenosis with mild bilateral neural foraminal narrowing at C6-7. Isra Crowell MD MR ORDERABLES Final R esult documented in this encounter Visit Diagnoses Diagnosis Cervical stenosis of spine Spinal stenosis in cervical region Cervical stenosis of spine Spinal stenosis in cervical region documented in this encounter Care Teams Industrial Pipefitter Journeyman Relationship Specialty Start Date End Date Elgin Chan MD [facility] [place] [phone] PCP - General Family Practice 06/26/21 documented as of this encounter
--- OUTSIDE RECORDS SUMMARY | 2024-11-14 12:46 | XMS_ITS | Clinical Summary ---
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 10/17/19 25 025 Active methocarbamoL (ROBAXIN) 750 [...] 025 Discontin ued(Stop Taking at Discharge ) HYDROcodone-aceta minophen (NORCO) 10-325 mg per tablet TAKE 1/2 TO 1 TABLET BY MOUTH TWICE DAILY NEEDED FOR PAIN; MAX DAILY DOSE 2 TABLETS 04/28/20 24 025 Discontin ued(Stop Taking at Discharge ) Prevalite 4 gram powder in packetIndications :diarrhea Take by mouth every morning 09/09/19 25 025 Discontin ued(Stop Taking at Discharge [...] (two) times a day 180 tablet 10/24/19 025 Discontin ued(Other ) rivaroxaban (XARELTO) 20 [...] hours for 3 doses 3 tablet 10/28/19 025 Discontin ued(Stop Taking at Discharge ) [...] (10/18/2024 3:10 PM CDT): --Home regimen of [place] PRN, Lyrica, Ibuprofen --Managed inpatient with oral [...] 7 mm). She was started on fidaxomicin 3/6 x10 days, with improvement in her leukocytosis [...] PM CDT): Large jump to 23 WBC 10/13 from previously normal, no fevers, new tachycardia, [...] -PT, OT recommend inpatient rehab -Accepted at [facility] pending medical clearance Assessment & Plan (10/19/2024 2:57 PM CDT): Status post C2-T8 revision fusion with C3 and C4 laminectomy, T2-4 laminectomy, and T3 VCR on 10/05/[address] Corona, and Dr. Escobar with complex Plastic Surgery closure. Post-op course complicated by multiple medical issues. -Cleared for discharge from Spine Surgery perspective -Plastic Surgery following -PT, OT recommend inpatient rehab -Accepted at [facility] Assessment & Plan (10/19/2024 12:42 PM CDT): --10/05 s/p C2-T10 revision PSF, PSO T3, closed by PRS with nylons, drains x 2 (PRS) -- post-operative imaging not yet obtained -- therapy recommends discharge to [facility] -- patient reports improvement in preoperative symptoms [...] sides 02/05/2024 Nonrheumatic mitral valve regurgitation 04/07/20 Hyponatremia 01/29/2022 Assessment & Plan (10/19/2024 8:28 [...] (03/31/2019): Added automatically from request for surgery [id number] Primary osteoarthritis of fi rst carpometacarpal joint of right hand 07/29/2018 Overview (03/31/2019): Added automatically from request for surgery [id number] Nocturia 05/19/2018 Urge incontinence 05/19/2018 Urinary frequency [...] 09/11/20222024 Assessment & Plan (10/12/2024 10:48 AM [employer]): Cont home ropinerole Encounters Date Type Department Care Team Description 11/10/2024 1:10 PM CDT Office Visit [facility] Orthopaedic Surgery [facility] Medical Office Building [address] [place] [phone] Randell Corona MD S/P spinal fusion (Primary Dx) 11/10/2024 12:45 PM CDT - 11/10/2024 11:59 PM CDT Hospital Encounter [facility] [address] [facility] [address] [place] [address] S/P spinal fusion Discharge Disposition: Discharge to home or self care 10/20/2024 11:40 AM CDT Ancillary Procedure [facility] Vascular Lab IP [address] [facility] [address] [place] [address] 10/16/2024 Telephone [facility] Case Management 1 [place] [address] Diane Salinas RN 10/05/2024 7:30 AM [employer] - 10/05/2024 7:40 PM [employer] Surgery [facility] Operating Room 1 [place] [address] Randell Corona MD REMOVAL HARDWARE SPINE-Removal instrumentation T3-L1, revision Posterior Spine Fusion with instrumentation C2-L1, Fusion exploration, C3-4 Laminectomy, T3 pedicle subtraction osteotomy, autograft, allograft, bone morphogenetic protein. 10/05/2024 7:27 AM [employer] Anesthesia Event [facility] Operating Room 1 [place] [address] Gregg Rocha MD Saunders, Sara Louise, NP 10/05/2024 5:31 AM [employer] - 10/29/2024 4:10 PM CDT Hospital Encounter [address] [phone] Randell Corona MD Yu, Tong, MD Lane, MD Concepción Stock, MD Álvaro Bruno Nathan R., MD Filson-Pinkley, Yovana Bhatia MD Kyphosis, unspecified kyphosis type, unspecified spinal region (Primary Dx); Acute postoperative pain [G89.18]; Cervicalgia [M54.2]; Midline thoracic back pain, unspecified chronicity [M54.6]; Chronic use of opiate drug for therapeutic purpose [Z79.891] Discharge Disposition: Discharge to an Rehab facility 10/04/2024 11:06 AM [employer] - 10/04/2024 11:59 PM [employer] Hospital Encounter [facility] Radiology [facility] 1 [place] [address] Randell Corona MD Fusion of lumbar spine Discharge Disposition: Discharge to home or self care 10/04/2024 10:06 AM [employer] - 10/04/2024 11:59 PM [employer] Hospital Encounter [facility] ([facility]) [address] [place] [address] Randell Corona MD Acquired kyphosis; Thoracic spine pain; Lumbar spine pain Discharge Disposition: Discharge to home or self care 10/04/2024 Orders Only [facility] Orthopaedic Surgery [address] [place] [address] [address] [place] [phone] Randell Corona MD Acquired kyphosis (Primary Dx); Thoracic spine pain; Lumbar spine pain 10/01/2024 Telephone [facility] Orthopaedic Surgery [address] [place] [address] [address] [place] [phone] Randell Corona MD 09/29/2024 Orders Only [facility] Randell Corona MD Acquired kyphosis 09/28/2024 Telephone [facility] Radiology [address] [place] [phone] Merary Valentin RN 09/17/2024 Telephone [facility] Orthopaedic Surgery [address] [place] [address] [address] [place] [phone] Randell Corona MD 09/17/2024 Documentation [facility]opa[facility] Surgery [address] [place] [address] [address] [place] [phone] Milly Ashton RN 09/15/2024 11:30 AM [employer] Pre-Admission Testing [facility] Pre-Anesthesia Testing [id number] [address] [facility] Preoperative testing (Primary Dx) 09/15/2024 11:15 AM [employer] Lab [facility] [address] [place] [address] Kyphosis, unspecified kyphosis type, unspecified spinal region; Spinal stenosis in cervical region; Cervical spondylosis with myelopathy 09/15/2024 9:40 AM [employer] Office Visit [facility] Orthopaedic Surgery [address] [place] [address] Office [facility] [address] [place] [phone] Randell Corona MD Acquired kyphosis (Primary Dx) 09/15/2024 8:49 AM [employer] - 09/15/2024 11:59 PM [employer] Hospital Encounter [facility] [address] [place] [address] [address] [place] [phone] Acquired kyphosis Discharge Disposition: Discharge to home or self care 09/15/2024 4:09 AM [employer] - 09/15/2024 11:59 PM [employer] Hospital Encounter [facility] [address] [place] [address] Preoperative testing Discharge Disposition: Discharge to home or self care 09/15/2024 Telephone [facility] Orthopaedic Surgery [address] [place] [address] Office [facility] [address] [place] [address] Randell Corona MD [facility] 09/01/2024 Telephone [facility] Orthopaedic Surgery [address] [place] [address] 4 [address] [place] [address] Randell Corona MD [facility] 09/01/2024 Orders Only [facility] Orthopaedic Surgery [address] [place] [address] 4 [address] [place] [address] Randell Corona MD Fusion of lumbar spine (Primary Dx) 08/18/2024 Telephone [facility] Orthopaedic Surgery [address] [place] [address] 4 [address] [place] [address] Randell Corona MD from Last 3 Months Immunizations Immunization Administration Dates Next Due H1N1 Inj 04/24/2010 Influenza, Trivalent, High D ose, Split, Preservative Free, Intramuscular 06/23/2019 Influenza, Trivalent, IM (MDV) 8,09/08/2017,05/28/2014,04/27,07/13/2012,07/01/2011,04/21/2009 Influenza, Unspecified 05/28/2014 Pneumococcal Polysaccharide PPV23 07/13/2012 Surgical History Surgery Date Site/Laterality Comments CENTRAL LINE PLACEMENT > 5 YEARS 02/24/2015 N/A CENTRAL LINE PLACEMENT > 5 YEARS 05/24/2014 N/A IM NAILING FEMORAL SHAFT FRACTURE 08/11/2017 - 08/10/2018 Left LUMBAR FUSION FRACTURE SURGERY 2018 JOINT REPLACEMENT left hip SPINE SURGERY 2013 2014 CENTRAL LINE PLACEMENT > 5 YEARS 10/04/2024 N/A US GUIDED THORACENTESIS 10/13/2024 N/A SPINAL FUSION 10/05/2024 C2-L1 posterior spinal fusion Medical History Medical History Date Comments Anemia Osteoporosis PONV (postoperative nausea and vomiting) Hx of [employer] spotted fever Carpal tunnel syndrome on both sides 12/06/2015 Inflammatory bowel disease 12/31/2010 Urinary frequency 05/19/2018 Closed fracture of thoracic vertebra (HCC) 02/07 Vitamin D deficiency 12/31/2010 Hx of fracture of femur Hyponatremia Heart murmur Family History Medical History Relation Name Comments Diabetes Brother 1 Mohamud JR Hearing loss Brother 1 Mohamud NOLAN Hearing loss Brother 2 Blaise Hypertension Father Mohamud TAPIA Arthritis Mother Shonda Hearing loss Mother Shonda Anesthesia problems Neg Hx Relation Name Status Comments Brother 1 Mohamud JR Brother 2 Blaise Father Mohamud SR Mother Shonda Social History Tobacco Use Types Packs/Day Years [...] on file Legal Sex Female 5:53 PM [employer] Gender Identity Female 04/11/2020 6:36 AM CDT Sexual Orientation Straight 04/11/2020 6: 36 AM CDT Occupation Industry Job Start Date Job End Date retired Not on file Not on file Not on file Obstetrics History Last Filed Vital Signs Vital Sign Reading [...] cm (5' 5 ) 10/10/2024 11:00 PM [employer] Body Mass Index 29.2 10/10/2024 11:00 PM [employer] Plan of Treatment Health Maintenance Due Date Last Done Comments Depression Screening 1945 Hepatitis C Screening 1945 DTaP/Tdap/Td Vaccine (1 - Tdap) 1958 Hepatitis B Screening 1965 Zoster Vaccine (1 of 2) 1997 Well Visit 65+ 01/10/2012 Influenza Vaccine (Season Ended) 2025 06/22/2020, 06/23/2019, 06/02/2018, Additional history exists Fall Risk Assessment 10/29/2025 10/29/2024 Osteoporosis Screening-Bone Density Scan 07/23/2026 07/23/2024, 06/09/2024, 06/09/2024, Additional history exists Breast Cancer Screening-Mammogram Discontinued 05/26/2018, 03/22/2016, 11/02/2014, Additional history exists Pneumococcal vaccine 65+ Completed 06/22/2020, 10/2011 Medical Devices Implanted Type Area Hand Former Helper Device Identifier Shelf Expiration Date Model / Serial / Lot Torres & NephRelaborate/Richco/Ort ho [id number] Intertan 40cm 13mm Left Intertrochanter 130d 1.5mm Nail - [id number] Implanted:Qty: 1 on 04/19/2019 by Rafia Coppola MD at [facility] [employer] Nephew/Rich[employer]/ Ortho [id number] 06/22/2028 [id number] / / [id number] [employer]hew/Richco/Ort ho [id number] Intertan 4.5mm 100mm 95mm Lag Compression Integrated Interlocking - [id number] Implanted:Qty: 1 on 04/19/2019 by Rafia Coppola MD at [facility] [employer]/Richco/ Ortho [id number] 09/22/2028 [id number] / / [id number] [employer]/Richco/Ort ho [id number] 5mm 50mm Low Profile Internal Hex Femur Screw Bone Trigen - [id number] Implanted:Qty: 1 on 04/19/2019 by Rafia Coppola MD at [facility] [employer]/Rich[employer]/ Ortho [id number] / / [employer]hew/Richco/Ort ho [id number] 5mm 35mm Low Profile Internal Hex Femur Screw Bone Trigen - [id number] Implanted:Qty: 1 on 04/19/2019 by Rafia Coppola MD at [facility] [employer]/Rich[employer]/ Ortho [id number] / / [employer]hew/Richco/Ort ho [id number] 5mm 42.5mm Low Profile Internal Hex Femur Screw Bone Trigen - [id number] Implanted:Qty: 1 on 04/19/2019 by Rafia Coppola MD at [facility] [employer]hew/Rich[employer]/ Ortho [id number] / / Medtronic Inc Kit Graft Bone Sponge Xlg Infuse 8cc Granules [id number] - [id number] Implanted:Qty: 1 on 10/05/2024 by Randell Corona MD at [facility] N/A: Spine Lumbar Medtronic Inc [id number] 10/09/2025 [id number] / / [id number] Medtronic Inc Kit Graft Bone Sponge Xlg Infuse 8cc Granules 8334152 - [id number] Implanted:Qty: 1 on 10/05/2024 by Randell Corona MD at [facility] N/A: Spine Lumbar Medtronic Inc [id number] 10/09/2025 [id number] / / [id number] Allosource Crushed Chip Frozen Graft 60ml Bone Cancellous [id number] - [id number] Implanted:Qty: 1 on 10/05/2024 by Randell Corona MD at [facility] N/A: Spine Lumbar Allosource 06/22/2029 [id number] / / [id number] Medtronic Inc Graft Bone Filler Prefilled Inj 12cc Putty [id number] - [id number] - [id number] Implanted:Qty: 1 on 10/05/2024 by Randell Corona MD at [facility] N/A: Spine Lumbar Medtronic Inc [id number] 08/20/2026 [id number] / [id number] / Medtronic Inc Graft Bone Filler Prefilled Inj 12cc Putty S29652 - [id number] - [id number] Implanted:Qty: 1 on 10/05/2024 by Randell Corona MD at [facility] N/A: Spine Lumbar Medtronic Inc [id number] 08/20/2026 [id number] / [id number] / Medtronic Inc Graft Bone Filler Prefilled Inj 12cc Putty [id number] - [id number] - [id number] Implanted:Qty: 1 on 10/05/2024 by Randell Corona MD at [facility] N/A: Spine Lumbar Medtronic Inc [id number] 08/20/2026 [id number] / [id number] / Allosource 4+ Cm Whole Frozen Irradiate Graft Bone Rib 22857722 - [id number] Implanted:Qty: 1 on 10/05/2024 by Randell Corona MD at [facility] N/A: Spine Lumbar All[employer]ource 11/28/2028 [id number] / / [id number] Medtronic Inc .25in Cap Spine Standard 32 Thread Screw Set [id number] - [id number] Implanted:Qty: 2 on 10/05/2024 by Randell Corona MD at [facility] N/A: Spine Lumbar Medtronic Inc [id number] / / Medtronic Inc Centerpiece 20mm B Cage Spinal 604603i - [id number] Implanted:Qty: 1 on 10/05/2024 by Randell Corona MD at [facility] N/A: Spine Lumbar Medtronic Inc [id number] / / Medtronic Inc Legacy Cd Horizon Breakoff Spine Pedicle Reverse Angle Screw Set 5719442 - [id number] Implanted:Qty: 2 on 10/05/2024 by Randell Corona MD at [facility] N/A: Spine Lumbar Medtronic Inc [id number] / / Medtronic Inc Emil Axial Spine Cl5.5 Op5.5 Curve Connector Jacqueline Titanium [id number] - [id number] Implanted:Qty: 2 on 10/05/2024 by Randell Corona MD at [facility] N/A: Spine Lumbar Medtronic Inc [id number] / / Nuvasive Inc Screw Spinal Posterior Cervical Locking Solid Reline C 3870223 - [id number] Implanted:Qty: 4 on 10/05/2024 by Randell Corona MD at [facility] N/A: Spine Lumbar [employer] [id number] / / Nuvasive Inc Screw Spinal Pedicle Polyaxial Solid Reline 5.5mm Titanium 80962398 - [id number] Implanted:Qty: 12 on 10/05/2024 by Randell Corona MD at [facility] N/A: Spine Lumbar [employer] [id number] / / Nuvasive Inc Jacqueline Spinal Lumbar Narrow Connecting O O Rotating Reline 5-6/5-6mm 86667717 - [id number] Implanted:Qty: 4 on 10/05/2024 by Randell Corona MD at [facility] N/A: Spine Lumbar [employer] [id number] / / Nuvasive Inc Connector Spinal Posterior Cervical Rotating Top Top Reline 3.5-4/5-6mm 0257223 - [id number] Implanted:Qty: 4 on 10/05/2024 by Randell Corona MD at [facility] N/A: Spine Lumbar [employer] [id number] / / Gl[employer]us Medical Spacer Spinal Fortify D16mm W16mm X H24mm Sterile Latex Free 151.102 - [id number] Implanted:Qty: 1 on 10/05/2024 by Randell Corona MD at [facility] N/A: Spine Lumbar [employer] 151.102 / / Gl[employer] Medical Spacer Spinal Fortify 0 D D16 Mm W16 Mm X H16 Mm Footprint Upper Endplate Sagittal Profile Sterile Latex Free 151.501 - [id number] Implanted:Qty: 1 on 10/05/2024 by Randell Corona MD at [facility] N/A: Spine Lumbar [employer] 151.501 / / Gl[employer]us Medical Endplate Cage Spinal Lumbar 0 Degree Alif Expandable Fortify [id number] Peek 151.551 - [id number] Implanted:Qty: 1 on 10/05/2024 by Randell Corona MD at [facility] N/A: Spine Lumbar [employer] 151.551 / / Depuy Synthes Spine Screw Spinal Posterior Cervical Polyaxial Solid Symphony 3.5x16mm [id number] - [id number] Implanted:Qty: 7 on 10/05/2024 by Randell Corona MD at [facility] N/A: Spine Lumbar Depuy Synthes Spine [id number] / / Depuy Synthes Spine Screw Spinal Posterior Cervical Polyaxial Solid Symphony 3.5x24mm 561950229 - [id number] Implanted:Qty: 1 on 10/05/2024 by Randell Corona MD at [facility] N/A: Spine Lumbar Depuy Synthes Spine [id number] / / Depuy Synthes Spine Screw Spinal Posterior Cervical Polyaxial Solid Symphony 3.5x28mm [id number] - [id number] Implanted:Qty: 1 on 10/05/2024 by Randell Corona MD at [facility] N/A: Spine Lumbar Depuy Synthes Spine [id number] / / Depuy Synthes Spine Expedium 5.5mm 40mm Polyaxial Spine Screw Bone Titanium 5.5mm Jacqueline [id number] - [id number] Implanted:Qty: 2 on 10/05/2024 by Randell Corona MD at [facility] N/A: Spine Lumbar Depuy Synthes Spine [id number] / / Depuy Synthes Spine Expedium Viper 2 5.5mm 480mm Straight Jacqueline Spinal [id number] - [id number] Implanted:Qty: 3 on 10/05/2024 by Randell Corona MD at [facility] N/A: Spine Lumbar Depuy Synthes Spine [id number] / / Depuy Synthes Spine Expedium 1 Inner Monoaxial Spine Screw Set Titanium [id number] - [id number] Implanted:Qty: 13 on 10/05/2024 by Randell Corona MD at [facility] N/A: Spine Lumbar Depuy Synthes Spine [id number] / / Depuy Synthes Spine Connector Spinal Lateral Offset Short Symphony 4.0mm [id number] - [id number] Implanted:Qty: 1 on 10/05/2024 by Randell Corona MD at [facility] N/A: Spine Lumbar Depuy Synthes Spine [id number] / / Depuy Synthes Spine Connector Spinal Lateral Offset Long Symphony 4.0mm [id number] - [id number] Implanted:Qty: 2 on 10/05/2024 by Randell Corona MD at [facility] N/A: Spine Lumbar Depuy Synthes Spine [id number] / / Depuy Synthes Spine 5.5-6.35mm Open Closed Spine Angle Connector Jacqueline Titanium [id number] - [id number] Implanted:Qty: 1 on 10/05/2024 by Randell Corona MD at [facility] N/A: Spine Lumbar Depuy Synthes Spine [id number] / / Depuy Synthes Spine Jacqueline Spinal Posterior Cervical Straight Symphony 4.3a144yf Titanium [id number] - [id number] Implanted:Qty: 1 on 10/05/2024 by Randell Corona MD at [facility] N/A: Spine Lumbar Depuy Synthes Spine [id number] / / Depuy Synthes Spine Expedium 5.5mm 30mm Polyaxial Spine Screw Bone Titanium 5.5mm Jacqueline 084465444 - [id number] Implanted:Qty: 1 on 10/05/2024 by Randell Corona MD at [facility] N/A: Spine Lumbar Depuy Synthes Spine [id number] / / Depuy Synthes Spine Screw Spinal Cervical Polyaxial Threaded Solid Symphony 4x5.5x30mm [id number] - [id number] Implanted:Qty: 4 on 10/05/2024 by Randell Corona MD at [facility] N/A: Spine Lumbar Depuy Synthes Spine [id number] / / Medtronic Inc Graft Bone Filler Prefilled Inj 12cc Putty [id number] - [id number] - [id number] Implanted:Qty: 1 on 10/05/2024 by Randell Corona MD at [facility] Medtronic Inc 08/20/2026 [id number] / [id number] / Depuy Synthes Spine Screw Spinal Set Posterior Cervical Solid Symphony Titanium [id number] - [id number] Implanted:Qty: 13 on 10/05/2024 by Randell Corona MD at [facility] N/A: Spine Cervical Depuy Synthes Spine [id number] / / Implantech Alliedsil 3x2in Nonreinforced Permanent Implantable Thk.005in - [id number] Implanted:Qty: 1 on 10/05/2024 by Randell Corona MD at [facility] N/A: Spine Lumbar Implantech [id number] 09/16/2028 / / [id number] Implantech Sheeting Silastic Non Reinforced Alliedsil 0.32x2h1et Silicone - [id number] Implanted:Qty: 1 on 10/05/2024 by Randell Corona MD at [facility] N/A: Spine Lumbar Implantech [id number] 11/19/2028 23-700-40 / / [id number] Collagen Matrix Inc Duramatrix 5x4in Suturable Graft Soft Tissue Dms45 - [id number] Implanted:Qty: 1 on 10/05/2024 by Randell Corona MD at [facility] N/A: Spine Lumbar Collagen Matrix Inc [id number] 04/10/2025 DMS45 / / [id number] [employer] Graft Bone Magnetos 5cc 1-2mm Granules In Moldable Putty 703-035-Us - [id number] Implanted:Qty: 1 on 10/05/2024 by Randell Corona MD at [facility] N/A: Spine Lumbar [employer] [id number] 03/11/2029 703-035-US / / [id number] Procedures Procedure [...] 12-LEAD STAT 10/20/2024 8:45 AM CDT POCT MS-K-[id number]-[id number]-HCT,WB - ISTAT Routine 10/20/2024 8:29 AM CDT [...] CDT PEP THERAPY Routine 10/16/2024 6:00 PM [employer] EGFR Timed 10/16/2024 6:13 AM [employer] BASIC METABOLIC PANEL Timed 10/16/2024 6:13 AM [employer] MANUAL DIFFERENTIAL Routine 10/16/2024 12:54 AM [employer] EGFR Timed 10/16/2024 12:54 AM [employer] EGFR Routine 10/16/2024 12:54 AM [employer] PHOSPHORUS Routine 10/16/2024 12:54 AM [employer] CBC WITH AUTO DIFFERENTIAL Routine 10/16/2024 12:54 AM [employer] BASIC METABOLIC PANEL Routine 10/16/2024 12:54 AM [employer] BASIC METABOLIC PANEL Timed 10/16/2024 12:54 AM [employer] PEP THERAPY Routine 10/15/2024 6:00 PM [employer] PEP THERAPY Routine 10/15/2024 1:00 PM [employer] EGFR STAT 10/15/2024 9:54 AM [employer] DIFFERENTIAL AUTO STAT 10/15/2024 9:5 4 AM [employer] CBC WITH AUTO DIFFERENTIAL STAT 10/15/2024 9:54 AM [employer] BASIC METABOLIC PANEL STAT 10/15/2024 9:54 AM [employer] PEP THERAPY Routine 10/15/2024 8:00 AM [employer] EGFR Routine 10/14/2024 8:33 PM [employer] DIFFERENTIAL AUTO Routine 10/14/2024 8:3 3 PM [employer] TYPE AND SCREEN Timed 10/14/2024 8:33 PM [employer] PHOSPHORUS Routine 10/14/2024 8:33 PM [employer] MAGNESIUM Routine 10/14/2024 8:33 PM [employer] CBC WITH AUTO DIFFERENTIAL Routine 10/14/2024 8:33 PM [employer] BASIC METABOLIC PANEL Routine 10/14/2024 8:33 PM [employer] XR ABDOMEN AP 1 VIEW ED Urgent/IP Urgent 10/14/2024 4:00 PM [employer] C. DIFFICILE TESTING Routine 10/14/2024 10:57 AM [employer] [employer] INFECTION PREVENTION VRE CULTURE Routine 10/14/2024 10:50 AM [employer] URINE CULTURE Routine 10/14/2024 9:06 AM [employer] INFECTION PREVENTION CHASTITY AURIS PCR, SURVEILLANCE Routine 10/14/2024 9:01 AM [employer] BLOOD CULTURE Routine 10/14/2024 8:55 AM [employer] MANUAL DIFFERENTIAL Routine 10/14/2024 12:12 AM [employer] EGFR Routine 10/14/2024 12:12 AM [employer] PHOSPHORUS Routine 10/14/2024 12:12 AM [employer] MAGNESIUM Routine 10/14/2024 12:12 AM [employer] CBC WITH AUTO DIFFERENTIAL Routine 10/14/2024 12:12 AM [employer] BASIC METABOLIC PANEL Routine 10/14/2024 12:12 AM [employer] PEP THERAPY Routine 10/13/2024 6:00 PM [employer] PRO B-TYPE NATRIURETIC PEPTIDE Timed 10/13/2024 4:50 PM [employer] SODIUM, URINE, RANDOM Routine 10/13/2024 4:50 PM [employer] OSMOLALITY, URINE Routine 10/13/2024 4:5 0 PM [employer] XR CHEST 1 VIEW Critical/Life-Th reatening 10/13/2024 3:26 PM [employer] US GUIDED THORACENTESIS RIGHT Timed 10/13/2024 2:31 PM [employer] CELL DIFFERENTIAL, BODY FLUID STAT 10/13/2024 1:32 PM [employer] PH, PLEURAL FLUID STAT 10/13/2024 1:3 2 PM [employer] PROTEIN, BODY FLUID STAT 10/13/2024 1 :32 PM [employer] LACTATE DEHYDROGENASE, BODY FLUID STAT 10/13/2024 1:32 PM [employer] GLUCOSE, BODY FLUID STAT 10/13/2024 1 :32 PM [employer] CELL COUNT W/REFLEX DIFFERENTIAL, BODY FLUID STAT 10/13/2024 1:32 PM [employer] AEROBIC AND ANAEROBIC CULTURE AND GRAM STAIN STAT 10/13/2024 1:32 PM [employer] PEP THERAPY Routine 10/13/2024 1:00 PM [employer] TRANSTHORACIC ECHO (TTE) COMPLETE W DOPPLER/CF W CONTRAST ED Urgent/IP Urgent 10/13/2024 10:53 AM [employer] PEP THERAPY Routine 10/13/2024 8:01 AM [employer] EGFR STAT 10/13/2024 6:28 AM [employer] CALCIUM,IONIZED, WHOLE BLOOD STAT 10/13/2024 6:28 AM [employer] BASIC METABOLIC PANEL STAT 10/13/2024 6:28 AM [employer] MANUAL DIFFERENTIAL Routine 10/12/2024 10:06 PM [employer] EGFR Routine 10/12/2024 10:06 PM [employer] PHOSPHORUS Routine 10/12/2024 10:06 PM [employer] MAGNESIUM Routine 10/12/2024 10:06 PM [employer] CBC WITH AUTO DIFFERENTIAL Routine 10/12/2024 10:06 PM [employer] BASIC METABOLIC PANEL Routine 10/12/2024 10:06 PM [employer] PEP THERAPY Routine 10/12/2024 1:39 PM [employer] PEP THERAPY Routine 10/12/2024 1:39 PM [employer] PEP THERAPY Routine 10/12/2024 1:39 PM [employer] PROTIME-INR STAT 10/12/2024 12:34 PM [employer] PRO B-TYPE NATRIURETIC PEPTIDE STAT 10/12/2024 12:34 PM [employer] RESPIRATORY PATHOGEN PANEL STAT 10/12/2024 12:34 PM [employer] XR CHEST 1 VIEW IP Routine 10/12/2024 7:54 AM [employer] EGFR Routine 10/11/2024 10:25 PM [employer] DIFFERENTIAL AUTO Routine 10/11/2024 10:25 PM [employer] TYPE AND SCREEN Timed 10/11/2024 10:25 PM [employer] PHOSPHORUS Routine 10/11/2024 10:25 PM [employer] MAGNESIUM Routine 10/11/2024 10:25 PM [employer] CBC WITH AUTO DIFFERENTIAL Routine 10/11/2024 10:25 PM [employer] BASIC METABOLIC PANEL Routine 10/11/2024 10:25 PM [employer] EGFR Routine 10/10/2024 10:42 PM [employer] DIFFERENTIAL AUTO Routine 10/10/2024 10:42 PM [employer] PHOSPHORUS Routine 10/10/2024 10:42 PM [employer] MAGNESIUM Routine 10/10/2024 10:42 PM [employer] CBC WITH AUTO DIFFERENTIAL Routine 10/10/2024 10:42 PM [employer] BASIC METABOLIC PANEL Routine 10/10/2024 10:42 PM [employer] EGFR Routine 10/09/2024 10:03 PM [employer] DIFFERENTIAL AUTO Routine 10/09/2024 10:03 PM [employer] PHOSPHORUS Routine 10/09/2024 10:03 PM [employer] MAGNESIUM Routine 10/09/2024 10:03 PM [employer] CBC WITH AUTO DIFFERENTIAL Routine 10/09/2024 10:03 PM [employer] BASIC METABOLIC PANEL Routine 10/09/2024 10:03 PM [employer] EGFR Routine 10/09/2024 1:04 AM [employer] DIFFERENTIAL AUTO Routine 10/09/2024 1:0 4 AM [employer] TYPE AND SCREEN Timed 10/09/2024 1:04 AM [employer] PHOSPHORUS Routine 10/09/2024 1:04 AM [employer] MAGNESIUM Routine 10/09/2024 1:04 AM [employer] CBC WITH AUTO DIFFERENTIAL Routine 10/09/2024 1:04 AM [employer] BASIC METABOLIC PANEL Routine 10/09/2024 1:04 AM [employer] POCT GLUCOSE DEVICE Routine 10/08/2024 3 :07 PM [employer] POCT GLUCOSE DEVICE Routine 10/08/2024 10:52 AM [employer] POCT GLUCOSE DEVICE Routine 10/08/2024 7 :04 AM [employer] CRITICAL CARE Routine 10/08/2024 6:32 AM [employer] Kyphosis, unspecified kyphosis type, unspecified spinal region POCT GLUCOSE DEVICE Routine 10/08/2024 3 :17 AM [employer] CBC WITHOUT DIFFERENTIAL Routine 10/08/2024 1:40 AM [employer] TRANSFUSE RED BLOOD CELLS Timed 10/07/2024 11:10 PM [employer] LIDOCAINE LEVEL Timed 10/07/2024 11:07 PM [employer] POCT GLUCOSE DEVICE Routine 10/07/2024 11:01 PM [employer] PREPARE RBC Timed 10/07/2024 10:28 PM [employer] CBC WITHOUT DIFFERENTIAL STAT 10/07/2024 9:52 PM [employer] CRITICAL CARE Routine 10/07/2024 9:10 PM [employer] Kyphosis, unspecified kyphosis type, unspecified spinal region EGFR Routine 10/07/2024 8:52 PM [employer] DIFFERENTIAL AUTO Routine 10/07/2024 8:5 2 PM [employer] PHOSPHORUS Routine 10/07/2024 8:52 PM [employer] MAGNESIUM Routine 10/07/2024 8:52 PM [employer] CBC WITH AUTO DIFFERENTIAL Routine 10/07/2024 8:52 PM [employer] BASIC METABOLIC PANEL Routine 10/07/2024 8:52 PM [employer] POCT GLUCOSE DEVICE Routine 10/07/2024 8 :02 PM [employer] POCT GLUCOSE DEVICE Routine 10/07/2024 3 :20 PM [employer] LIDOCAINE LEVEL STAT 10/07/2024 12:36 PM [employer] POCT GLUCOSE DEVICE Routine 10/07/2024 11:28 AM [employer] ECG 12-LEAD Routine 10/07/2024 9:30 AM [employer] POCT GLUCOSE DEVICE Routine 10/07/2024 7 :41 AM [employer] CRITICAL CARE Routine 10/07/2024 7:11 AM [employer] Kyphosis, unspecified kyphosis type, unspecified spinal region LACTATE, WHOLE BLOOD STAT 10/07/2024 6:50 AM [employer] CBC WITHOUT DIFFERENTIAL STAT 10/07/2024 6:50 AM [employer] POCT GLUCOSE DEVICE Routine 10/07/2024 3 :54 AM [employer] POCT GLUCOSE DEVICE Routine 10/06/2024 11:19 PM [employer] CRITICAL CARE Routine 10/06/2024 9:54 PM [employer] Kyphosis, unspecified kyphosis type, unspecified spinal region EGFR Routine 10/06/2024 9:02 PM [employer] DIFFERENTIAL AUTO Routine 10/06/2024 9:0 2 PM [employer] APTT Routine 10/06/2024 9:02 PM [employer] PROTIME-INR Routine 10/06/2024 9:02 PM [employer] PHOSPHORUS Routine 10/06/2024 9:02 PM [employer] MAGNESIUM Routine 10/06/2024 9:02 PM [employer] CBC WITH AUTO DIFFERENTIAL Routine 10/06/2024 9:02 PM [employer] BASIC METABOLIC PANEL Routine 10/06/2024 9:02 PM [employer] POCT GLUCOSE DEVICE Routine 10/06/2024 7 :45 PM [employer] NEURO CT OUTSIDE REFERENCE Routine 10/06/2024 5:22 PM [employer] NEURO CT OUTSIDE REFERENCE Routine 10/06/2024 5:22 PM [employer] XR ABDOMEN AP 1 VIEW ED Urgent/IP Urgent 10/06/2024 1:07 PM [employer] POCT GLUCOSE DEVICE Routine 10/06/2024 11:46 AM [employer] CRITICAL CARE Routine 10/06/2024 7:50 AM [employer] Kyphosis, unspecified kyphosis type, unspecified spinal region POCT GLUCOSE DEVICE Routine 10/06/2024 7 :37 AM [employer] ECG 12-LEAD Routine 10/06/2024 6:14 AM [employer] POCT GLUCOSE DEVICE Routine 10/06/2024 3 :55 AM [employer] CBC WITHOUT DIFFERENTIAL Timed 10/06/2024 2:02 AM [employer] EXTUBATION Routine 10/06/2024 12:40 AM [employer] XR ABDOMEN AP 1 VIEW ED Urgent/IP Urgent 10/06/2024 12:32 AM [employer] POCT GLUCOSE DEVICE Routine 10/05/2024 11:15 PM [employer] XR ABDOMEN AP 1 VIEW ED Urgent/IP Urgent 10/05/2024 10:53 PM [employer] CRITICAL CARE Routine 10/05/2024 10:42 PM [employer] APTT STAT 10/05/2024 10:27 PM [employer] PROTIME-INR STAT 10/05/2024 10:27 PM [employer] LACTATE, WHOLE BLOOD STAT 10/05/2024 10:27 PM [employer] BLOOD GAS, ARTERIAL STAT 10/05/2024 10:27 PM [employer] TYPE AND SCREEN Timed 10/05/2024 10:27 PM [employer] COVID-19 CORONAVIRUS RNA Routine 10/05/2024 10:27 PM [employer] XR CHEST 1 VIEW IP Routine 10/05/2024 8:15 PM [employer] LIPID PANEL STAT 10/05/2024 8:14 PM [employer] MAGNESIUM STAT 10/05/2024 8:14 PM [employer] PHOSPHORUS STAT 10/05/2024 8:14 PM [employer] EGFR STAT 10/05/2024 8:14 PM [employer] BASIC METABOLIC PANEL STAT 10/05/2024 8:14 PM [employer] CBC WITHOUT DIFFERENTIAL STAT 10/05/2024 8:14 PM [employer] POC BLOOD GAS AND CHEMISTRIES, ARTERIAL Routine 10/05/2024 8:11 PM [employer] XR SCOLIOSIS AP LAT IP Routine 10/05/2024 6 :59 PM [employer] POC BLOOD GAS AND CHEMISTRIES, ARTERIAL Routine 10/05/2024 5:52 PM [employer] TRANSFUSE PLASMA Timed 10/05/2024 5:13 PM [employer] XR SPINE THORACIC 2 VIEWS IP Routine 10/05/2024 4:57 PM [employer] FL FLUOROSCOPY < 1 HOUR IP Routine 10/05/2024 4:55 PM [employer] TRANSFUSE RED BLOOD CELLS Timed 10/05/2024 4:45 PM [employer] POC BLOOD GAS AND CHEMISTRIES, ARTERIAL Routine 10/05/2024 4:38 PM [employer] POC BLOOD GAS AND CHEMISTRIES, ARTERIAL Routine 10/05/2024 3:26 PM [employer] TRANSFUSE PLASMA Timed 10/05/2024 2:45 PM [employer] TRANSFUSE RED BLOOD CELLS Timed 10/05/2024 2:33 PM [employer] PREPARE PLASMA STAT 10/05/2024 2:27 PM [employer] PREPARE RBC STAT 10/05/2024 2:27 PM [employer] POC BLOOD GAS AND CHEMISTRIES, ARTERIAL Routine 10/05/2024 2:13 PM [employer] POCT PLATELET COUNT AND HEMATOCRIT Routine 10/05/2024 2:12 PM [employer] TRANSFUSE PLATELETS Timed 10/05/2024 2 :01 PM [employer] TRANSFUSE PLATELETS Timed 10/05/2024 1:54 PM [employer] PREPARE RBC STAT 10/05/2024 1:32 PM [employer] PREPARE PLASMA STAT 10/05/2024 1:32 PM [employer] PREPARE PLATELETS STAT 10/05/2024 1:3 1 PM [employer] TRANSFUSE CRYOPRECIPITATE (POOLED UNITS) Timed 10/05/2024 1:24 PM [employer] TRANSFUSE PLASMA Timed 10/05/2024 1:22 PM [employer] PREPARE CRYOPRECIPITATE (POOLED UNITS) STAT 10/05/2024 1:07 PM [employer] TRANSFUSE RED BLOOD CELLS Timed 10/05/2024 12:59 PM [employer] POC BLOOD GAS AND CHEMISTRIES, ARTERIAL Routine 10/05/2024 12:58 PM [employer] POC BLOOD GAS AND CHEMISTRIES, ARTERIAL Routine 10/05/2024 10:53 AM [employer] AL AN PROCEDURE PLACEHOLDER Routine 10/05/2024 9:21 AM [employer] AL AN PROCEDURE PLACEHOLDER Routine 10/05/2024 9:21 AM [employer] AL AN PROCEDURE PLACEHOLDER Routine 10/05/2024 9:20 AM [employer] AL AN PROCEDURE PLACEHOLDER Routine 10/05/2024 9:20 AM [employer] AL AN PROCEDURE PLACEHOLDER Routine 10/05/2024 9:18 AM [employer] AL AN ELECTIVE ENDOTRACHEAL AIRWAY Routine 10/05/2024 9:18 AM [employer] PREPARE PLASMA STAT 10/05/2024 8:53 AM [employer] POC BLOOD GAS AND CHEMISTRIES, ARTERIAL Routine 10/05/2024 8:31 AM [employer] BONE GRAFT WITH BONE MORPHOGENIC PROTEIN 10/05/2024 7:30 AM [employer] Kyphosis, unspecified kyphosis type, unspecified spinal region Spinal stenosis in cervical region Cervical spondylosis with myelopathy Case Notes 09/27@1632- Per [facility] via case msg - Can you put this case in the depot - [facility] 09/21@[facility] via phone call cell saver ID- [id number]- [facility] 09/03 - MISSING DPC. EMAIL SENT. [place] 09/03 - Per Milly, case in depot for edit. NB Special Needs [employer], morselized allograft, local autograft, BMP 3-4L, SCM, OSI [place] table, c-arm, GW Tongs, 15 lbs traction, cell saver, microscope, 3-4 units blood,has in [employer] from prior surgery.cell saver ID- [id number] SPINAL CORD MONITORING 10/05/2024 7:30 AM [employer] Kyphosis, unspecified kyphosis type, unspecified spinal region Spinal stenosis in cervical region Cervical spondylosis with myelopathy Case Notes 09/27@1632- Per Milly via case msg - Can you put this case in the depot - [facility] 09/21@1528- Per [facility] via phone call cell saver ID- [id number]- [facility] 09/03 - MISSING DPC. EMAIL SENT. [place] 09/03 - Per Milly, case in [facility] for edit. NB Special Needs [employer], morselized allograft, local autograft, BMP 3-4L, SCM, OSI [place] table, c-arm, GW Tongs, 15 lbs traction, cell saver, microscope, 3-4 units blood,has in [employer] from prior surgery.cell saver ID- [id number] LAMINECTOMY CERVICAL - POSTERIOR 10/05/2024 7:30 AM [employer] Kyphosis, unspecified kyphosis type, unspecified spinal region Spinal stenosis in cervical region Cervical spondylosis with myelopathy Case Notes 09/27@[facility] via case msg - Can you put this case in the depot - [facility] 09/21@[address] [place] [address] via phone call cell saver ID- [id number]- [facility] 09/03 - MISSING DPC. EMAIL SENT. [place] 09/03 - Per Milly, case in [facility] for edit. NB Special Needs [employer] Expedium, morselized allograft, local autograft, BMP 3-4L, SCM, OSI [place] table, c-arm, GW Tongs, 15 lbs traction, cell saver, microscope, 3-4 units blood,has in [employer] from prior surgery.cell saver ID- [id number] OSTEOTOMY POSTERIOR SPINAL 10/05/2024 7:30 AM [employer] Kyphosis, unspecified kyphosis type, unspecified spinal region Spinal stenosis in cervical region Cervical spondylosis with myelopathy Case Notes 09/27@[facility]- [facility] via case msg - Can you put this case in the depot - [facility] 09/21@[address] [place] [address] via phone call cell saver ID- [id number]- [facility] 09/03 - MISSING DPC. EMAIL SENT. [place] 09/03 - Per Milly, case in depot for edit. NB Special Needs Dep[employer] Expedium, morselized allograft, local autograft, BMP 3-4L, SCM, OSI [place]ido table, c-arm, GW Tongs, 15 lbs traction, cell saver, microscope, 3-4 units blood,has in [employer] from prior surgery.cell saver ID- [id number] FUSION DECOMPRESSION LAMINECTOMY WITH INSTRUMENTATION - [facility] 10/05/2024 7:30 AM [employer] Kyphosis, unspecified kyphosis type, unspecified spinal region Spinal stenosis in cervical region Cervical spondylosis with myelopathy Case Notes 09/27@1632- Per [facility] via case msg - Can you put this case in the depot - [facility] 09/21@1528[facility] via phone call cell saver ID- [id number]- [facility] 09/03 - MISSING DPC. EMAIL SENT. [place] 09/03 - Per Milly, case in depot for edit. NB Special Needs Dep[employer] Expedium, morselized allograft, local autograft, BMP 3-4L, SCM, OSI Candido table, c-arm, GW Tongs, 15 lbs traction, cell saver, microscope, 3-4 units blood,has in [employer] from prior surgery.cell saver ID- [id number] REMOVAL HARDWARE SPINE 10/05/2024 7:30 AM [employer] Kyphosis, unspecified kyphosis type, unspecified spinal region Spinal stenosis in cervical region Cervical spondylosis with myelopathy Case Notes 09/27@1632- Per [facility] via case msg - Can you put this case in the depot - [facility] 09/21@1528- Per [facility] via phone call cell saver ID- [id number]- [facility] 09/03 - MISSING DPC. EMAIL SENT. [place] 09/03 - Per [facility], case in [facility] for edit. NB Special Needs Dep[employer] Expedium, morselized allograft, local autograft, BMP 3-4L, SCM, OSI [place]ido table, c-arm, GW Tongs, 15 lbs traction, cell saver, microscope, 3-4 units blood,has in [employer] from prior surgery.cell saver ID- [id number] TYPE AND SCREEN STAT 10/05/2024 6:20 AM [employer] PREPARE RBC Timed 10/05/2024 5:48 AM [employer] CENTRAL LINE PLACEMENT > 5 YEARS Schedule Routine, Read Routine (OP Routine) 10/04/2024 1:43 PM [employer] Fusion of lumbar spine CT THORACIC AND LUMBAR SPINE WO CONTRAST Schedule Routine, Read Routine (OP Routine) 10/04/2024 10:53 AM [employer] Acquired kyphosis Thoracic spine pain Lumbar spine pain CT THORACIC SPINE WO CONTRAST Schedule NEEL, Read Routine (Patient lives out of area) 09/23/2024 8:56 AM [employer] Acquired kyphosis CT LUMBAR SPINE WO CONTRAST Schedule Routine, Read Routine (OP Routine) 09/23/2024 8:56 AM [employer] Acquired kyphosis EGFR Routine 09/15/2024 1:08 PM [employer] Kyphosis, unspecified kyphosis type, unspecified spinal region Spinal stenosis in cervical region Cervical spondylosis with myelopathy DIFFERENTIAL AUTO Routine 09/15/2024 1:0 8 PM [employer] Kyphosis, unspecified kyphosis type, unspecified spinal region Spinal stenosis in cervical region Cervical spondylosis with myelopathy TYPE AND SCREEN 14 DAY Routine 09/15/2024 1:08 PM [employer] Preoperative testing ERYTHROCYTE SEDIMENTATION RATE Routine 09/15/2024 1:08 PM [employer] Kyphosis, unspecified kyphosis type, unspecified spinal region Spinal stenosis in cervical region Cervical spondylosis with myelopathy VITAMIN D 25 HYDROXY Routine 09/15/2024 1:08 PM [employer] Kyphosis, unspecified kyphosis type, unspecified spinal region Spinal stenosis in cervical region Cervical spondylosis with myelopathy HEMOGLOBIN A1C Routine 09/15/2024 1:08 PM [employer] Kyphosis, unspecified kyphosis type, unspecified spinal region Spinal stenosis in cervical region Cervical spondylosis with myelopathy CRP (ACUTE PHASE) Routine 09/15/2024 1:0 8 PM [employer] Kyphosis, unspecified kyphosis type, unspecified spinal region Spinal stenosis in cervical region Cervical spondylosis with myelopathy CBC WITH AUTO DIFFERENTIAL Routine 09/15/2024 1:08 PM [employer] Kyphosis, unspecified kyphosis type, unspecified spinal region Spinal stenosis in cervical region Cervical spondylosis with myelopathy COMPREHENSIVE METABOLIC PANEL Routine 09/15/2024 1:08 PM [employer] Kyphosis, unspecified kyphosis type, unspecified spinal region Spinal stenosis in cervical region Cervical spondylosis with myelopathy NICOTINE METABOLITE SCREEN, URINE Routine 09/15/2024 1:01 PM [employer] Kyphosis, unspecified kyphosis type, unspecified spinal region Spinal stenosis in cervical region Cervical spondylosis with myelopathy URINALYSIS AND REFLEX TO MICROSCOPIC AND CULTURE Routine 09/15/2024 1:01 PM [employer] Kyphosis, unspecified kyphosis type, unspecified spinal region Spinal stenosis in cervical region Cervical spondylosis with myelopathy XR SCOLIOSIS 6 OR MORE VIEWS Schedule Routine, Read Routine (OP Routine) 09/15/2024 9:45 AM [employer] Acquired kyphosis DEXA AXIAL SKELETON BONE DENSITY 1 OR MORE SITES Schedule Routine, Read Routine (OP Routine) 07/23/2024 3:43 PM [employer] Osteopenia, unspecified location Age-related osteoporosis without current [...] sec INR 2.44(H) 0.90 - 1.20 [facility] Comment: Interpretive data Oral anticoagulant therapeutic ranges: Venous thromboembolism prophylaxis or treatment: 2.0-3.0 CARDIOLOGY Standard range: 2.0-3.0 High-intensity range: 2.5-3.5 Refer to indication-specific guidelines for appropriate target ranges for prosthetic heart valve replacement. Current interpretive data was last revised on 2019. Blood 10/29/2024 4:48 AM CDT 10/29/2024 5:07 AM CDT Yovana Freitas MD LAB BLOOD ORDERAB LES Final Result [facility] Department [place] [address] * XR Chest 1 View (10/28/2024 10:11 [...] ORDERAB LES Final Result Performing Organization Address [facility] [place] [address] * (ABNORMAL) Protime-INR (10/27/2024 10:39 PM CDT) Pathologist [facility] PT 18.5(H) 9.7 - 13.0 sec INR 1.69(H) 0.90 - 1.20 [facility] Comment: Interpretive data Oral anticoagulant therapeutic ranges: Venous thromboembolism prophylaxis or treatment: 2.0-3.0 CARDIOLOGY Standard range: 2.0-3.0 High-intensity range: 2.5-3.5 Refer to indication-specific guidelines for appropriate target ranges for prosthetic heart valve replacement. Current interpretive data was last revised on 2019. Blood 10/27/2024 10:3 9 PM CDT 10/27/2024 11:47 PM CDT us Yovana Freitas MD LAB BLOOD ORDERAB LES Final Result Performing Organization Address [facility] de Phone Number [facility] [place] [address] * (ABNORMAL) CBC without differential (10/27/2024 10:39 PM CDT) WBC 9.6 3.8 - 9.9 K/cumm Hgb 10.3(L) 11.9 - 15.5 g/dL [facility] Hct 32.4(L) 35.6 - 45.5 % [facility] Plt 631(H) 150 - 400 K/cumm [facility] MPV 9.4 9.1 - 12.3 fL [facility] RBC 3.61(L) 3.90 - 5.20 M/cumm [facility] MCV 89.8 81.3 - 96.4 fL [facility] MCH 28.5 27.1 - 33.3 pg [facility] MCHC 31.8(L) 32.3 - 35.7 g/dL [facility] RDW CV 18.3(H) 11.1 - 14.9 % [facility] RDW SD 55.8(H) 35.7 - 48.1 fL [facility] NRBC abs 0.06(H) 0.00 - 0.01 K/cumm [facility] Blood 10/27/2024 10:3 9 PM CDT 10/27/2024 11:35 PM CDT us Yovana Freitas MD LAB BLOOD ORDERAB LES Final Result [facility] Department [place] [address] * (ABNORMAL) Comprehensive metabolic panel (10/27/2024 10:39 PM CDT) Pathologist [facility] Sodium 139 135 - 145 mmol/L Potassium, pl 3.9 3.3 - 4.9 mmol/L [facility] Chloride 101 97 - 110 mmol/L [facility] CO2 24 22 - 32 mmol/L [facility] Anion gap 14 2 - 15 mmol/L [facility] BUN 14 6 - 25 mg/dL [facility] Creatinine 0.50(L) 0.60 - 1.10 mg/dL [facility] Glucose 99 70 - 199 mg/dL [facility] Comment: Interpretive Data Fasting glucose >/= 126 [...] 2022. Calcium 7.6(L) 8.5 - 10.3 mg/dL [facility] Bilirubin, total 0.2 0.1 - 1.2 mg/dL [facility] Protein, pl 5.7(L) 6.5 - 8.5 g/dL [facility] Albumin 2.5(L) 3.5 - 5.0 g/dL [facility] Alk phos 136(H) 40 - 130 Units/L [facility] ALT 23 7 - 45 Units/L [facility] AST 26 10 - 45 Units/L [facility] Blood 10/27/2024 10:3 9 PM CDT 10/27/2024 11:35 PM CDT us Yovana Freitas MD LAB BLOOD ORDERAB LES Final Result Performing Organization Address [facility] de Phone Number [facility] [place] [address] * Protime-INR (10/26/2024 10:26 PM CDT) PT 12.8 9.7 - 13.0 sec INR 1.18 0.90 - 1.20 [facility] Comment: Interpretive data Oral anticoagulant therapeutic ranges: Venous thromboembolism prophylaxis or treatment: 2.0-3.0 CARDIOLOGY Standard range: 2.0-3.0 High-intensity range: 2.5-3.5 Refer to indication-specific guidelines for appropriate target ranges for prosthetic heart valve replacement. Current interpretive data was last revised on 2019. Blood 10/26/2024 10:2 6 PM CDT 10/26/2024 11:39 PM CDT us Yovana Freitas MD LAB BLOOD ORDERAB LES Final Result Performing Organization Address City/[facility] Co de Phone Number [facility] [address] [place] [address] * Type and screen (10/26/2024 8:39 PM CDT) ABO Rh A Positive [place], indirect Negative [facility] Blood 10/26/2024 8:39 PM CDT 10/26/2024 9:51 PM CDT Narrative [facility] - 10/26/2024 11:06 PM CDT Has the patient had Daratumumab or Isatuximab in the past 6 months?->Unknown [place] DUMONT LAB BLOOD BANK TEST ORDERABLES Final Result [facility] Department [place] [address] * eGFR (10/25/2024 9:56 PM CDT) eGFR >90 >=60 mL/min/1. 73 [...] 9:56 PM CDT 10/25/2024 10:13 PM CDT Yovana Freitas MD LAB BLOOD ORDERAB LES Final Result [facility] Department [place] [address] * Protime-INR (10/25/2024 9:56 PM CDT) [facility] PT 11.3 9.7 - 13.0 sec INR 1.05 0.90 - 1.20 [facility] Comment: Interpretive data Oral anticoagulant therapeutic ranges: Venous thromboembolism prophylaxis or treatment: 2.0-3.0 CARDIOLOGY Standard range: 2.0-3.0 High-intensity range: 2.5-3.5 Refer to indication-specific guidelines for appropriate target ranges for prosthetic heart valve replacement. Current interpretive data was last revised on 2019. Blood 10/25/2024 9:56 PM CDT 10/25/2024 10:16 PM CDT us Yovana Freitas MD LAB BLOOD ORDERAB LES Final Result [facility] Department [place] [address] * (ABNORMAL) CBC without differential (10/25/2024 9:56 PM CDT) [facility] WBC 10.2(H) 3.8 - 9.9 K/cumm Hgb 9.8(L) 11.9 - 15.5 g/dL [facility] Hct 30.6(L) 35.6 - 45.5 % [facility] Plt 627(H) 150 - 400 K/cumm [facility] MPV 9.2 9.1 - 12.3 fL [facility] RBC 3.49(L) 3.90 - 5.20 M/cumm [facility] MCV 87.7 81.3 - 96.4 fL [facility] MCH 28.1 27.1 - 33.3 pg [facility] MCHC 32.0(L) 32.3 - 35.7 g/dL [facility] RDW CV 17.4(H) 11.1 - 14.9 % [facility] RDW SD 53.2(H) 35.7 - 48.1 fL [facility] NRBC abs 0.04(H) 0.00 - 0.01 K/cumm [facility] Blood 10/25/2024 9:56 PM CDT 10/25/2024 10:13 PM CDT us Yovana Freitas MD LAB BLOOD ORDERAB LES Final Result Performing Organization Address City/[facility]/ZIP Co de Phone Number [facility] [place] [address] * Phosphorus (10/25/2024 9:56 PM CDT) [facility] Phosphorus, pl 3.1 2.3 - 4.5 mg/dL Blood 10/25/2024 9:56 PM CDT 10/25/2024 10:07 PM CDT Yovana Freitas MD LAB BLOOD ORDERAB LES Final Result Performing Organization Address City/[facility] de Phone Number [facility] [place] [address] * (ABNORMAL) Comprehensive metabolic panel (10/25/2024 9:56 PM CDT) [facility] Sodium 143 135 - 145 mmol/L Potassium, pl 4.2 3.3 - 4.9 mmol/L [facility] Chloride 106 97 - 110 mmol/L [facility] CO2 26 22 - 32 mmol/L [facility] Anion gap 11 2 - 15 mmol/L [facility] BUN 15 6 - 25 mg/dL [facility] Creatinine 0.48(L) 0.60 - 1.10 mg/dL [facility] Glucose 105 70 - 199 mg/dL [facility] Comment: Interpretive Data Fasting glucose >/= 126 [...] total 0.2 0.1 - 1.2 mg/dL [facility] Protein, pl 4.9(L) 6.5 - 8.5 g/dL [facility] Albumin 2.1(L) 3.5 - 5.0 g/dL [facility] Alk phos 107 40 - 130 Units/L [facility] ALT 20 7 - 45 Units/L [facility] AST 18 10 - 45 Units/L [facility] Blood 10/25/2024 9:56 PM CDT 10/25/2024 10:07 PM CDT Yovana Freitas MD LAB BLOOD ORDERAB LES Final Result [facility] Department [place] [address] * eGFR (10/24/2024 10:20 PM CDT) eGFR [...] MD LAB BLOOD ORDERABLES Final R esult [facility] Department [place] [address] * (ABNORMAL) Differential, auto (10/24/2024 10:20 PM CDT) Neutrophil abs 5.7 1.5 - 6.5 K/cumm Imm gran abs 0.3(H) 0.0 - 0.1 K/cumm [facility] Lymphocyte abs 0.7(L) 0.8 - 3.3 K/cumm [facility] Monocyte abs 0.6 0.2 - 0.8 K/cumm [facility] Eosinophil abs 0.1 0.0 - 0.5 K/cumm [facility] Basophil abs 0.1 0.0 - 0.1 K/cumm [facility] Neutrophil pct 77.6 % [facility] Comment: Interpretive Data Percent cell count reference ranges are not reported, since discordance with absolute values may lead to misinterpretation of CBC data. Current Interpretive Data was last revised on 2017. Imm gran pct 3.5 % [facility] Comment: Interpretive Data Percent cell count reference ranges are not reported, since discordance with absolute values may lead to misinterpretation of CBC data. Current Interpretive Data was last revised on 2017. Lymphocyte pct 9.4 % [facility] Comment: Interpretive Data Percent cell count reference ranges are not reported, since discordance with absolute values may lead to misinterpretation of CBC data. Current Interpretive Data was last revised on 2017. Monocyte pct 7.8 % [facility] Comment: Interpretive Data Percent cell count reference ranges are not reported, since discordance with absolute values may lead to misinterpretation of CBC data. Current Interpretive Data was last revised on 2017. Eosinophil pct 1.0 % [facility] Comment: Interpretive Data Percent cell count reference ranges are not reported, since discordance with absolute values may lead to misinterpretation of CBC data. Current Interpretive Data was last revised on 2017. Basophil pct 0.7 % [facility] Comment: Interpretive Data Percent cell count reference ranges are not reported, since discordance with absolute values may lead to misinterpretation of CBC data. Current Interpretive Data was last revised on 2017. Blood 10/24/2024 10:2 0 PM CDT 10/24/2024 10:49 PM CDT us [place] DUMONT LAB BLOOD ORDERABLE S Final Result [facility] Department [place] [address] * (ABNORMAL) CBC with auto differential (10/24/2024 10:20 PM CDT) WBC 7.4 3.8 - 9.9 K/cumm Hgb 9.5(L) 11.9 - 15.5 g/dL [facility] Hct 29.3(L) 35.6 - 45.5 % [facility] Plt 499(H) 150 - 400 K/cumm [facility] MPV 9.4 9.1 - 12.3 fL [facility] RBC 3.29(L) 3.90 - 5.20 M/cumm [facility] MCV 89.1 81.3 - 96.4 fL [facility] MCH 28.9 27.1 - 33.3 pg [facility] MCHC 32.4 32.3 - 35.7 g/dL [facility] RDW CV 17.2(H) 11.1 - 14.9 % [facility] RDW SD 55.1(H) 35.7 - 48.1 fL [facility] NRBC abs 0.00 0.00 - 0.01 K/cumm [facility] Blood 10/24/2024 10:2 0 PM CDT 10/24/2024 10:49 PM CDT [place] DUMONT LAB BLOOD ORDERABLE S Final Result Performing Organization Address City/[facility]/ZIP Co de Phone Number [facility] Department [place] [address] * Phosphorus (10/24/2024 10:20 PM CDT) Pathologist [facility] Phosphorus, pl 3.0 2.3 - 4.5 mg/dL Blood 10/24/2024 10:2 0 PM CDT 10/24/2024 10:49 PM CDT [place] Jeffery NM LAB BLOOD ORDERABLE S Final Result Performing Organization Address [facility] de Phone Number [facility] Department [place] [address] * (ABNORMAL) Comprehensive metabolic panel (10/24/2024 10:20 PM CDT) [facility] Sodium 144 135 - 145 mmol/L Potassium, pl 4.3 3.3 - 4.9 mmol/L [facility] Chloride 107 97 - 110 mmol/L [facility] CO2 26 22 - 32 mmol/L [facility] Anion gap 11 2 - 15 mmol/L [facility] BUN 15 6 - 25 mg/dL [facility] Creatinine 0.36(L) 0.60 - 1.10 mg/dL [facility] Glucose 127 70 - 199 mg/dL [facility] Comment: Interpretive Data Fasting glucose >/= 126 [...] Calcium 7.8(L) 8.5 - 10.3 mg/dL [facility] Bilirubin, total 0.2 0.1 - 1.2 mg/dL [facility] Protein, pl 4.7(L) 6.5 - 8.5 g/dL [facility] Albumin 2.1(L) 3.5 - 5.0 g/dL [facility] Alk phos 107 40 - 130 Units/L [facility] ALT 18 7 - 45 Units/L [facility] AST 19 10 - 45 Units/L [facility] Blood 10/24/2024 10:2 0 PM CDT 10/24/2024 10:49 PM CDT us Scott Rea MD LAB BLOOD ORDERABLES Final R esult [facility] Department [place] [address] * eGFR (10/23/2024 9:32 PM CDT) eGFR [...] MD LAB BLOOD ORDERABLES Final R esult [facility] Department [place] [address] * (ABNORMAL) Differential, auto (10/23/2024 9:32 PM CDT) Neutrophil abs 6.8(H) 1.5 - 6.5 K/cumm Imm gran abs 0.4(H) 0.0 - 0.1 K/cumm [facility] Lymphocyte abs 1.1 0.8 - 3.3 K/cumm [facility] Monocyte abs 0.7 0.2 - 0.8 K/cumm [facility] Eosinophil abs 0.1 0.0 - 0.5 K/cumm [facility] Basophil abs 0.1 0.0 - 0.1 K/cumm [facility] Neutrophil pct 75.3 % [facility] Comment: Interpretive Data Percent cell count reference ranges are not reported, since discordance with absolute values may lead to misinterpretation of CBC data. Current Interpretive Data was last revised on 2017. Imm gran pct 4.2 % [facility] Comment: Interpretive Data Percent cell count reference ranges are not reported, since discordance with absolute values may lead to misinterpretation of CBC data. Current Interpretive Data was last revised on 2017. Lymphocyte pct 11.9 % [facility] Comment: Interpretive Data Percent cell count reference ranges are not reported, since discordance with absolute values may lead to misinterpretation of CBC data. Current Interpretive Data was last revised on 2017. Monocyte pct 7.3 % [facility] Comment: Interpretive Data Percent cell count reference ranges are not reported, since discordance with absolute values may lead to misinterpretation of CBC data. Current Interpretive Data was last revised on 2017. Eosinophil pct 0.6 % [facility] Comment: Interpretive Data Percent cell count reference ranges are not reported, since discordance with absolute values may lead to misinterpretation of CBC data. Current Interpretive Data was last revised on 2017. Basophil pct 0.7 % [facility] Comment: Interpretive Data Percent cell count reference ranges are not reported, since discordance with absolute values may lead to misinterpretation of CBC data. Current Interpretive Data was last revised on 2017. Blood 10/23/2024 9:32 PM CDT 10/23/2024 9:53 PM CDT [place] DUMONT LAB BLOOD ORDERABLE S Final Result Performing Organization Address City/State/[facility] Co de Phone Number [facility] Department [place] [address] * (ABNORMAL) CBC with auto differential (10/23/2024 9:32 PM CDT) WBC 9.0 3.8 - 9.9 K/cumm Hgb 10.2(L) 11.9 - 15.5 g/dL [facility] Hct 32.4(L) 35.6 - 45.5 % [facility] Plt 542(H) 150 - 400 K/cumm [facility] MPV 9.5 9.1 - 12.3 fL [facility] RBC 3.68(L) 3.90 - 5.20 M/cumm [facility] MCV 88.0 81.3 - 96.4 fL [facility] MCH 27.7 27.1 - 33.3 pg [facility] MCHC 31.5(L) 32.3 - 35.7 g/dL [facility] RDW CV 17.5(H) 11.1 - 14.9 % [facility] RDW SD 54.6(H) 35.7 - 48.1 fL [facility] NRBC abs 0.04(H) 0.00 - 0.01 K/cumm [facility] Blood 10/23/2024 9:32 PM CDT 10/23/2024 9:53 PM CDT [place] DUMONT LAB BLOOD ORDERABLE S Final Result Performing Organization Address City/[facility]/ZIP Co de Phone Number [facility] [place] [address] * Type and screen (10/23/2024 9:32 PM CDT) [facility] [place], indirect Negative ABO Rh A Positive [facility] Blood 10/23/2024 9:32 PM CDT 10/23/2024 9:53 PM CDT Narrative [facility] - 10/23/2024 10:49 PM CDT Has the patient had Daratumumab or Isatuximab in the past 6 months?->Unknown [place] DUMONT LAB BLOOD BANK TEST ORDERABLES Final Result Performing Organization Address [facility] [place] [address] * Phosphorus (10/23/2024 9:32 PM CDT) [facility] Phosphorus, pl 2.9 2.3 - 4.5 mg/dL Blood 10/23/2024 9:32 PM CDT 10/23/2024 9:46 PM CDT [place] DUMONT LAB BLOOD ORDERABLE S Final Result Performing Organization Address City/[facility] Co de Phone Number [facility] [address] * (ABNORMAL) Comprehensive metabolic panel (10/23/2024 9:32 PM CDT) [facility] Sodium 137 135 - 145 mmol/L Potassium, pl 4.7 3.3 - 4.9 mmol/L [facility] Chloride 104 97 - 110 mmol/L [facility] CO2 24 22 - 32 mmol/L [facility] Anion gap 9 2 - 15 mmol/L [facility] BUN 13 6 - 25 mg/dL [facility] Creatinine 0.39(L) 0.60 - 1.10 mg/dL [facility] Glucose 141 70 - 199 mg/dL [facility] Comment: Interpretive Data Fasting glucose >/= 126 [...] 2022. Calcium 7.8(L) 8.5 - 10.3 mg/dL [facility] Bilirubin, total 0.2 0.1 - 1.2 mg/dL [facility] Protein, pl 5.2(L) 6.5 - 8.5 g/dL [facility] Albumin 2.2(L) 3.5 - 5.0 g/dL [facility] Alk phos 119 40 - 130 Units/L [facility] ALT 23 7 - 45 Units/L [facility] AST 30 10 - 45 Units/L [facility] Blood 10/23/2024 9:32 PM CDT 10/23/2024 9:46 PM CDT us Scott Rea MD LAB BLOOD ORDERABLES Final R esult [facility] Department [place] [address] * Calcium, ionized (10/23/2024 6:22 AM CDT) Calcium, Ionized 4.59 4.50 - 5.10 mg/dL Blood 10/23/2024 6:22 AM CDT 10/23/2024 6:25 AM CDT us Mio Lebron PhD LAB BLOOD ORDERABLES Final Result [facility] Department [place] [address] * eGFR (10/22/2024 8:47 PM CDT) Pathologist [facility] eGFR >90 >=60 mL/min/1. 73 m2 Comment: [...] LAB BLOOD ORDERABLES Final R esult [facility] Department [place] [address] * (ABNORMAL) Differential, auto (10/22/2024 8:47 PM CDT) Pathologist [facility] Neutrophil abs 6.8(H) 1.5 - 6.5 K/cumm Imm gran abs 0.6(H) 0.0 - 0.1 K/cumm [facility] Lymphocyte abs 0.7(L) 0.8 - 3.3 K/cumm [facility] Monocyte abs 0.8 0.2 - 0.8 K/cumm [facility] Eosinophil abs 0.1 0.0 - 0.5 K/cumm [facility] Basophil abs 0.1 0.0 - 0.1 K/cumm [facility] Neutrophil pct 75.6 % [facility] Comment: Interpretive Data Percent cell count reference ranges are not reported, since discordance with absolute values may lead to misinterpretation of CBC data. Current Interpretive Data was last revised on 2017. Imm gran pct 6.3 % [facility] Comment: Interpretive Data Percent cell count reference ranges are not reported, since discordance with absolute values may lead to misinterpretation of CBC data. Current Interpretive Data was last revised on 2017. Lymphocyte pct 7.5 % [facility] Comment: Interpretive Data Percent cell count reference ranges are not reported, since discordance with absolute values may lead to misinterpretation of CBC data. Current Interpretive Data was last revised on 2017. Monocyte pct 8.6 % [facility] Comment: Interpretive Data Percent cell count reference ranges are not reported, since discordance with absolute values may lead to misinterpretation of CBC data. Current Interpretive Data was last revised on 2017. Eosinophil pct 1.0 % [facility] Comment: Interpretive Data Percent cell count reference ranges are not reported, since discordance with absolute values may lead to misinterpretation of CBC data. Current Interpretive Data was last revised on 2017. Basophil pct 1.0 % [facility] Comment: Interpretive Data Percent cell count reference ranges are not reported, since discordance with absolute values may lead to misinterpretation of CBC data. Current Interpretive Data was last revised on 2017. Blood 10/22/2024 8:47 PM CDT 10/22/2024 9:33 PM CDT us [place] DUMONT LAB BLOOD ORDERABLE S Final Result CORRY CATALAN [facility] Department [place] [address] * (ABNORMAL) CBC with auto differential (10/22/2024 8:47 PM CDT) WBC 9.0 3.8 - 9.9 K/cumm Hgb 10.1(L) 11.9 - 15.5 g/dL [facility] Hct 32.3(L) 35.6 - 45.5 % [facility] Plt 508(H) 150 - 400 K/cumm [facility] MPV 9.5 9.1 - 12.3 fL [facility] RBC 3.62(L) 3.90 - 5.20 M/cumm [facility] MCV 89.2 81.3 - 96.4 fL [facility] MCH 27.9 27.1 - 33.3 pg [facility] MCHC 31.3(L) 32.3 - 35.7 g/dL [facility] RDW CV 17.5(H) 11.1 - 14.9 % [facility] RDW SD 55.3(H) 35.7 - 48.1 fL [facility] NRBC abs 0.03(H) 0.00 - 0.01 K/cumm [facility] Blood 10/22/2024 8:47 PM CDT 10/22/2024 9:33 PM CDT [place] DUMONT LAB BLOOD ORDERABLE S Final Result [facility] Department of [address] [place] [address] * Phosphorus (10/22/2024 8:47 PM CDT) [facility] Phosphorus, pl 2.6 2.3 - 4.5 mg/dL Blood 10/22/2024 8:47 PM CDT 10/22/2024 9:33 PM CDT [place] DUMONT LAB BLOOD ORDERABLE S Final Result [facility] [place] [address] * (ABNORMAL) Comprehensive metabolic panel (10/22/2024 8:47 PM CDT) Sodium 139 135 - 145 mmol/L Potassium, pl 4.7 3.3 - 4.9 mmol/L [facility] Chloride 102 97 - 110 mmol/L [facility] CO2 25 22 - 32 mmol/L [facility] Anion gap 12 2 - 15 mmol/L [facility] BUN 13 6 - 25 mg/dL [facility] Creatinine 0.38(L) 0.60 - 1.10 mg/dL [facility] Glucose 115 70 - 199 mg/dL [facility] Comment: Interpretive Data Fasting glucose >/= 126 [...] 2022. Calcium 7.9(L) 8.5 - 10.3 mg/dL [facility] Bilirubin, total 0.2 0.1 - 1.2 mg/dL [facility] Protein, pl 5.1(L) 6.5 - 8.5 g/dL [facility] Albumin 2.2(L) 3.5 - 5.0 g/dL [facility] Alk phos 127 40 - 130 Units/L [facility] ALT 25 7 - 45 Units/L [facility] AST 26 10 - 45 Units/L [facility] Blood 10/22/2024 8:47 PM CDT 10/22/2024 9:33 PM CDT us Scott Rea MD LAB BLOOD ORDERABLES Final R esult [facility] Department [place] [address] * eGFR (10/21/2024 9:50 PM CDT) [facility] eGFR >90 >=60 mL/min/1. 73 m2 Comment: [...] DUMONT LAB BLOOD ORDERABLE S Final Result [facility] Department [place] [address] * (ABNORMAL) Differential, auto (10/21/2024 9:50 PM CDT) [facility] Neutrophil abs 8.9(H) 1.5 - 6.5 K/cumm Imm gran abs 0.9(H) 0.0 - 0.1 K/cumm [facility] Lymphocyte abs 0.9 0.8 - 3.3 K/cumm [facility] Monocyte abs 0.8 0.2 - 0.8 K/cumm [facility] Eosinophil abs 0.1 0.0 - 0.5 K/cumm [facility] Basophil abs 0.1 0.0 - 0.1 K/cumm [facility] Neutrophil pct 75.9 % [facility] Comment: Interpretive Data Percent cell count reference ranges are not reported, since discordance with absolute values may lead to misinterpretation of CBC data. Current Interpretive Data was last revised on 2017. Imm gran pct 7.8 % [facility] Comment: Interpretive Data Percent cell count reference ranges are not reported, since discordance with absolute values may lead to misinterpretation of CBC data. Current Interpretive Data was last revised on 2017. Lymphocyte pct 7.8 % [facility] Comment: Interpretive Data Percent cell count reference ranges are not reported, since discordance with absolute values may lead to misinterpretation of CBC data. Current Interpretive Data was last revised on 2017. Monocyte pct 6.8 % [facility] Comment: Interpretive Data Percent cell count reference ranges are not reported, since discordance with absolute values may lead to misinterpretation of CBC data. Current Interpretive Data was last revised on 2017. Eosinophil pct 0.7 % [facility] Comment: Interpretive Data Percent cell count reference ranges are not reported, since discordance with absolute values may lead to misinterpretation of CBC data. Current Interpretive Data was last revised on 2017. Basophil pct 1.0 % [facility] Comment: Interpretive Data Percent cell count reference ranges are not reported, since discordance with absolute values may lead to misinterpretation of CBC data. Current Interpretive Data was last revised on 2017. Blood 10/21/2024 9:50 PM CDT 10/21/2024 10:14 PM CDT [place] DUMONT LAB BLOOD ORDERABLE S Final Result CORRY CATALAN [facility] Department [place] [address] * HIV 1/2 Antibody plus p24 Antigen [...] LAB MICROBIOLOGY - GENERAL ORDERABLES Final Result Performing Organization Address [facility] Co de Phone Number [facility] of [address] [place] [address] * (ABNORMAL) CBC with auto differential (10/21/2024 9:50 PM CDT) WBC 11.8(H) 3.8 - 9.9 K/cumm Hgb 11.0(L) 11.9 - 15.5 g/dL [facility] Hct 34.5(L) 35.6 - 45.5 % [facility] Plt 517(H) 150 - 400 K/cumm [facility] MPV 9.3 9.1 - 12.3 fL [facility] RBC 3.92 3.90 - 5.20 M/cumm [facility] MCV 88.0 81.3 - 96.4 fL [facility] MCH 28.1 27.1 - 33.3 pg [facility] MCHC 31.9(L) 32.3 - 35.7 g/dL [facility] RDW CV 17.4(H) 11.1 - 14.9 % [facility] RDW SD 54.5(H) 35.7 - 48.1 fL [facility] NRBC abs 0.06(H) 0.00 - 0.01 K/cumm [facility] Blood 10/21/2024 9:50 PM CDT 10/21/2024 10:14 PM CDT us [place] DUMONT LAB BLOOD ORDERABLE S Final Result Performing Organization Address City/[facility]/ZIP Co de Phone Number [facility] [place] [address] * Phosphorus (10/21/2024 9:50 PM CDT) Phosphorus, pl 2.4 2.3 - 4.5 mg/dL Blood 10/21/2024 9:50 PM CDT 10/21/2024 10:14 PM CDT [place] DUM[place] LAB BLOOD ORDERABLE S Final Result [facility] Department [place] [address] * (ABNORMAL) Basic metabolic panel (10/21/2024 9:50 PM CDT) [facility] Sodium 136 135 - 145 mmol/L Potassium, pl 4.3 3.3 - 4.9 mmol/L [facility] Chloride 100 97 - 110 mmol/L [facility] CO2 24 22 - 32 mmol/L [facility] Anion gap 12 2 - 15 mmol/L [facility] BUN 14 6 - 25 mg/dL [facility] Creatinine 0.45(L) 0.60 - 1.10 mg/dL [facility] Glucose 137 70 - 199 mg/dL [facility] Comment: Interpretive Data Fasting glucose >/= 126 [...] 2022. Calcium 7.7(L) 8.5 - 10.3 mg/dL [facility] Blood 10/21/2024 9:50 PM CDT 10/21/2024 10:14 PM CDT [place] Prabha Jeffery PA LAB BLOOD ORDERABLE S Final Result [facility] Department [place] [address] * TRANSTHORACIC ECHO (TTE) LIMITED/FOLLOW UP W LTD DOPPLER/CF W CONTRAST (10/21/2024 5:32 PM CDT) Anatomical Region Laterality Modality Ultrasound 10/21/2024 4:18 PM CDT Narrative 10/21/2024 6:11 PM CDT [facility] [place] [address] Transthoracic Echocardiographic Report Patient Name: SEAN ESTRELLA A : 1945 (79y 9m) Gender: F Study Date: 10/21/2024 04:18:42 PM Ht(Inch): 65 Wt(Lb): 136.91 BSA: 1.69 Hand Alterations Tailor: Sadia Fraser RDCS Location: [id number] Order Provider: RANDY BIRD Heart Rate: 148 [...] MD 10/21/2024 6:10:56 PM CDT Procedure Note Negro-Johann Page MD - 10/21/2024 [facility] [place] [address] Transthoracic Echocardiographic Report Patient Name: SEAN ESTRELLA A : 1945 (79y 9m) Gender: F Study Date: 10/21/2024 04:18:42 PM Ht(Inch): 65 Wt(Lb): 136.91 BSA: 1.69 Hand Alterations Tailor: Sadia Fraser [facility] Location: [id number] Order Provider:RANDY BIRD Heart Rate: 148 BMI: [...] Mass Index 2D 62.61 g/m2 MV Decel Zrwd011.04 msec [ 104.00 - 258.00 ] RWT [...] MD 10/21/2024 6:10:56 PM CDT Randy Bird NP CV ECHO PROCEDURES [facility] al Result * (ABNORMAL) aPTT (10/21/2024 3:26 AM CDT) aPTT 82(H) 28 - 38 sec Comment: Interpretive Data Heparin therapeutic range: 66.0 - 100.0 seconds. Range based on correlation with therapeutic heparin activity range of 0.3 - 0.7 Units/mL. Current interpretive data was last revised on 2023. Blood 10/21/2024 3:26 AM CDT 10/21/2024 4:30 AM CDT [facility] - 10/21/2024 4:57 AM CDT STAT PTT [...] drawn peripherally (not from CVC). Randy Bird DIGITAL ASSOCIATE MEDIA DIRECTOR LAB BLOOD ORDERABLES F inal Result Performing Organization Address [facility] Co de Phone Number CORRY [facility] Department [place] [address] * eGFR (10/20/2024 9:29 PM CDT) eGFR [...] ORDERABLE S Final Result Performing Organization Address City/[facility]/ZIP Co de Phone Number [facility] [place] [address] * (ABNORMAL) CBC with auto differential (10/20/2024 9:29 PM CDT) WBC 12.1(H) 3.8 - 9.9 K/cumm Hgb 10.0(L) 11.9 - 15.5 g/dL [facility] Hct 29.7(L) 35.6 - 45.5 % [facility] Plt 451(H) 150 - 400 K/cumm [facility] MPV 9.5 9.1 - 12.3 fL [facility] RBC 3.44(L) 3.90 - 5.20 M/cumm [facility] MCV 86.3 81.3 - 96.4 fL [facility] MCH 29.1 27.1 - 33.3 pg [facility] MCHC 33.7 32.3 - 35.7 g/dL [facility] RDW CV 16.9(H) 11.1 - 14.9 % [facility] RDW SD 51.9(H) 35.7 - 48.1 fL [facility] NRBC abs 0.09(H) 0.00 - 0.01 K/cumm [facility] Blood 10/20/2024 9:29 PM CDT 10/20/2024 9:40 PM CDT us [place] DUMONT LAB BLOOD ORDERABLE S Final Result [facility] Department [place] [address] * (ABNORMAL) Manual Differential (10/20/2024 9:29 PM CDT) Differential Manual Cells Counted 126 [facility] Neutrophil abs 9.9(H) 1.5 - 6.5 K/cumm [facility] Imm gran abs 0.2(H) 0.0 - 0.1 K/cumm [facility] Lymphocyte abs 1.0 0.8 - 3.3 K/cumm [facility] Monocyte abs 0.7 0.2 - 0.8 K/cumm [facility] Eosinophil abs 0.2 0.0 - 0.5 K/cumm [facility] Basophil abs 0.1 0.0 - 0.1 K/cumm [facility] Neutrophil pct 81.7 % [facility] Comment: Interpretive Data Percent cell count reference ranges are not reported, since discordance with absolute values may lead to misinterpretation of CBC data. Current Interpretive Data was last revised on 2017. Lymphocyte pct 8.7 % [facility] Comment: Interpretive Data Percent cell count reference ranges are not reported, since discordance with absolute values may lead to misinterpretation of CBC data. Current Interpretive Data was last revised on 2017. Monocyte pct 5.6 % [facility] Comment: Interpretive Data Percent cell count reference ranges are not reported, since discordance with absolute values may lead to misinterpretation of CBC data. Current Interpretive Data was last revised on 2017. Eosinophil pct 1.6 % [facility] Comment: Interpretive Data Percent cell count reference ranges are not reported, since discordance with absolute values may lead to misinterpretation of CBC data. Current Interpretive Data was last revised on 2017. Basophil pct 0.8 % [facility] Comment: Interpretive Data Percent cell count reference ranges are not reported, since discordance with absolute values may lead to misinterpretation of CBC data. Current Interpretive Data was last revised on 2017. Myelocyte pct 1.6(H) 0.0 - 0.0 % [facility] Blood 10/20/2024 9:29 PM CDT 10/20/2024 9:46 PM CDT us [place] DUM[place] LAB BLOOD ORDERABLE S Final Result [facility] Department [place] [address] * aPTT (10/20/2024 9:29 PM CDT) aPTT 38 28 - 38 sec Comment: Interpretive Data Heparin therapeutic range: 66.0 - 100.0 seconds. Range based on correlation with therapeutic heparin activity range of 0.3 - 0.7 Units/mL. Current interpretive data was last revised on 2023. Blood 10/20/2024 9:29 PM CDT 10/20/2024 9:56 PM CDT Narrative [facility] - 10/20/2024 10:05 PM CDT STAT PTT [...] drawn peripherally (not from [facility]). Randy Bird NP LAB BLOOD ORDERABLES F inal Result [facility] Department [place] [address] * Type and screen (10/20/2024 9:29 PM CDT) Pathologist [facility] ABO Rh A Positive [place], indirect Negative [facility] Blood 10/20/2024 9:29 PM CDT 10/20/2024 9:42 PM CDT Narrative [facility] - 10/20/2024 10:31 PM CDT Has the patient had Daratumumab or Isatuximab in the past 6 months?->Unknown [place] DUMONT LAB BLOOD BANK TEST ORDERABLES Final Result [facility] Department [place] [address] * Phosphorus (10/20/2024 9:29 PM CDT) Pathologist [facility] Phosphorus, pl 2.3 2.3 - 4.5 mg/dL Blood 10/20/2024 9:29 PM CDT 10/20/2024 9:40 PM CDT [place] DUMONT LAB BLOOD ORDERABLE S Final Result Performing Organization Address City/[facility]/ZIP Co de Phone Number [facility] Department [place] [address] * Magnesium (10/20/2024 9:29 PM CDT) [facility] Magnesium 2.1 1.4 - 2.5 mg/dL Blood 10/20/2024 9:29 PM CDT 10/20/2024 9:40 PM CDT Ishmael Beebe MD LAB BLOOD ORDERABLE S Final Result Performing Organization Address [facility] Co de Phone Number [facility] Department [place] [address] * (ABNORMAL) Basic metabolic panel (10/20/2024 9:29 PM CDT) [facility] Sodium 138 135 - 145 mmol/L Potassium, pl 4.4 3.3 - 4.9 mmol/L [facility] Chloride 101 97 - 110 mmol/L [facility] Comment:Repeated and Verifie d CO2 24 22 - 32 mmol/L [facility] Anion gap 13 2 - 15 mmol/L [facility] BUN 14 6 - 25 mg/dL [facility] Creatinine 0.39(L) 0.60 - 1.10 mg/dL [facility] Glucose 138 70 - 199 mg/dL [facility] Comment: Interpretive Data Fasting glucose >/= 126 [...] 2022. Calcium 7.3(L) 8.5 - 10.3 mg/dL [facility] Comment:Repeated and Verifie d Blood 10/20/2024 9:29 PM CDT 10/20/2024 9:40 PM CDT [place] Jeffery PA LAB BLOOD ORDERABLE S Final Result Performing Organization Address City/[facility]/ZIP Co de Phone Number [facility] [place] [address] * Sodium, urine, random (10/20/2024 6:23 PM CDT) Sodium, ur <20 mmol/L Comment: Interpretive Data No reference range established. Current interpretive data was last revised 2018. Urine (Urine, Clean Catch) 10/20/2024 6:23 PM CDT 10/20/2024 6:39 PM CDT Leticia Heaton DIGITAL ASSOCIATE MEDIA DIRECTOR LAB URINE ORDERABLES Final Resu lt Performing Organization Address [facility] [place] [address] * Potassium, urine, random (10/20/2024 6:23 PM CDT) Potassium conc, ur 57.3 mmol/L Comment: Interpretive Data No reference range established. Current interpretive data was last revised 2018. Urine (Urine, Clean Catch) 10/20/2024 6:23 PM CDT 10/20/2024 6:39 PM CDT Vildana Masic DIGITAL ASSOCIATE MEDIA DIRECTOR LAB URINE ORDERABLES Final Resu lt Performing Organization Address City/[facility]/ZIP Co de Phone Number [facility] [place] [address] * Osmolality, urine (10/20/2024 6:23 PM CDT) Osmo, ur 764 mOsm/kg Urine 10/20/2024 6:23 PM CDT 10/20/2024 6:39 PM CDT Leticia Toscano DIGITAL ASSOCIATE MEDIA DIRECTOR LAB URINE ORDERABLES Final Resu lt Performing Organization Address [facility] Co de Phone Number [facility] [place] [address] * Creatinine, urine, random (10/20/2024 6:23 PM CDT) Creatinine Ur 62.0 mg/dL Comment: Interpretive Data No reference range established. Current interpretive data was last revised 2018. Urine 10/20/2024 6:23 PM CDT 10/20/2024 6:39 PM CDT Leticia Toscano DIGITAL ASSOCIATE MEDIA DIRECTOR LAB URINE ORDERABLES Final Resu lt Performing Organization Address [facility] Co de Phone Number [facility] [place] [address] * Chloride, urine, random (10/20/2024 6:23 PM CDT) Chloride, ur <25 mmol/L Comment: Interpretive Data No reference range established. Current interpretive data was last revised 2018. Urine (Urine, Clean Catch) 10/20/2024 6:23 PM CDT 10/20/2024 6:39 PM CDT Leticia Toscano DIGITAL ASSOCIATE MEDIA DIRECTOR LAB URINE ORDERABLES Final Resu lt Performing Organization Address [facility] Co de Phone Number [facility] [place] [address] * (ABNORMAL) POC Blood Gas and Chemistries, Venous - (10/20/2024 6:06 PM CDT) pH, Justus POC 7.43 7.32 - 7.43 pCO2, justus POC 35(L) 40 - 50 mmHg [facility] pO2, justus POC 44 mmHg [facility] Na, POC 134(L) 135 - 145 mmol/L [facility] K POC 4.1 3.3 - 4.9 mmol/L [facility] Comment: Interpretive Data Not all point of care methods assess for hemolysis. Confirm with instrument and retest K+ if not consistent with clinical signs and symptoms. Current Interpretive Data was last revised on 2023. Cl, POC 105 97 - 110 mmol/L [facility] Ionized Ca, POC 4.59 4.50 - 5.10 mg/dL [facility] Glucose, POC 156 70 - 199 mg/dL [facility] Lactate, POC 3.3(H) 0.7 - 2.0 mmol/L [facility] O2 Sat, Justus POC (Ruth) 79 % [facility] Base excess, POC -0.8 mmol/L [facility] HCO3, Justus POC 23 20 - 30 mmol/L [facility] Hct, POC 32.0(L) 36.3 - 45.3 % [facility] Total Hb, POC 10.7(L) 11.9 - 15.5 g/dL [facility] Blood 10/20/2024 6:06 PM CDT 10/20/2024 6:06 PM CDT us Ishmael Beebe MD LAB POCT ORDERABLES - DEVICE Final Result [facility] Department [place] [address] * Lactate (10/20/2024 2:54 PM CDT) Pathologist [facility] Lactate 1.6 0.7 - 2.0 mmol/L Blood 10/20/2024 2:54 PM CDT 10/20/2024 3:13 PM CDT us Vildana Masic DIGITAL ASSOCIATE MEDIA DIRECTOR LAB BLOOD ORDERABLES Final Resu lt Performing Organization Address City/[facility]/ZIP Co de Phone Number [facility] Department [place] [address] * eGFR (10/20/2024 2:54 PM CDT) eGFR [...] ORDERABLES Final Resu lt Performing Organization Address City/[facility]/ZIP Co de Phone Number [facility] Department of [address] [place] [address] * Critical Result Callback Chemistry (10/20/2024 2:54 PM CDT) Date Notified [id number] Time Notified 1726 CORRY CATALAN TestName Potassium Plas, Calcium [facility] CATALAN Called/Read Back Tequila CATALAN Credentials MOLLY CATALAN Called By PARVEEN CATALAN Blood 10/20/2024 2:54 PM CDT 10/20/2024 3:25 PM CDT Leticia Heaton DIGITAL ASSOCIATE MEDIA DIRECTOR LAB BLOOD ORDERABLES Final Resu lt Performing Organization Address [facility] de Phone Number [facility] [place] [address] * (ABNORMAL) Phosphorus (10/20/2024 2:54 PM CDT) Phosphorus, pl 1.2(L) 2.3 - 4.5 mg/dL Blood 10/20/2024 2:54 PM CDT 10/20/2024 3:25 PM CDT Ishmael Beebe MD LAB BLOOD ORDERABLE S Final Result Performing Organization Address [facility] Phone Number [facility] [place] [address] * (ABNORMAL) Magnesium (10/20/2024 2:54 PM CDT) Magnesium 1.3(L) 1.4 - 2.5 mg/dL Blood 10/20/2024 2:54 PM CDT 10/20/2024 3:25 PM CDT Ishmael Beebe MD LAB BLOOD ORDERABLE S Final Result Performing Organization Address [facility] de Phone Number [facility] [address] [place] [address] * (ABNORMAL) Basic metabolic panel (10/20/2024 2:54 PM CDT) Sodium 147(H) 135 - 145 mmol/L Comment:Sample investigated and found to be analytically accurate. If results do not match clinical presentation, improper collection (e.g., IV fluid contamination, improper tube type, mislabel) should be considered and re-collection recommended. Potassium, pl 2.3(C) 3.3 - 4.9 mmol/L [facility] Comment:Repeated and Verifie d Chloride 121(H) 97 - 110 mmol/L [facility] Comment:Repeated and Verifie d CO2 15(L) 22 - 32 mmol/L [facility] Anion gap 11 2 - 15 mmol/L [facility] BUN 8 6 - 25 mg/dL [facility] Creatinine 0.21(L) 0.60 - 1.10 mg/dL [facility] Glucose 84 70 - 199 mg/dL [facility] Comment: Interpretive Data Fasting glucose >/= 126 [...] 2022. Calcium <5.0(C) 8.5 - 10.3 mg/dL [facility] Comment:Repeated and Verifie d Blood 10/20/2024 2:54 PM CDT 10/20/2024 3:25 PM CDT us Leticia Heaton NP LAB BLOOD ORDERABLES Edited Res ult - Final [facility] Department [place] [address] * US Vein Duplex Lower Extremity Bilateral Complete (10/20/2024 1:41 PM CDT) Anatomical Region Laterality Modality Vascular Bilateral Ultrasound 10/20/2024 1:14 PM CDT Narrative 10/21/2024 6:32 PM CDT [facility] - Department of Vascular Surgery, Vascular Laboratory [address] [place] [id number] Lower Extremity Venous Ultrasound Report Patient Name: SEAN ESTRELLA A : 1945 (79y 9m) Study Date: 10/20/2024 1:14:36 PM Gender: F Tech: Location: [id number] Ref Provider: RANDY BIRD Quality: Adequate Order Provider: RANDY BIRD PROCEDURES: Vascular Report: Venous Duplex imaging was performed bilaterally in the lower extremities. The common femoral, femoral, popliteal, posterior tibial, peroneal veins were evaluated for patency, spontaneity and phasicity with Doppler, compression and augmentation maneuvers. Great saphenous vein proximal at the junction was evaluated with compression maneuvers. INDICATIONS: Localized edema. FINDINGS: Performing Hand Alterations Tailor: Jeimy Mccullough RVT, RDMS. Bilateral: Venous Doppler [...] above. Electronically Signed By: Franky Aceves MD [facility] [phone] 10/21/2024 5:23:34 PM CDT Procedure Note Franky Aceves MD - 10/21/2024 [facility] - Department of Vascular Surgery,Vascular Laboratory [address] [place] [address] Lower Extremity Venous Ultrasound Report Patient Name: SEAN ESTRELLA A : 1945 (79y 9m) Study Date: 10/20/2024 1:14:36 PM Gender: F Tech: Location: [id number] Ref Provider: RANDY BIRD Quality: Adequate Order Provider: RANDY BIRD PROCEDURES: Vascular Report: Venous Duplex imaging was performed bilaterally in the lower extremities.The common femoral, femoral, popliteal, posterior tibial, peroneal veins wereevaluated for patency, spontaneity and phasicity with Doppler, compression and augmentationmaneuvers. Great saphenous vein proximal at the junction was evaluated with compressionmaneuvers. INDICATIONS: Localized edema. FINDINGS: Performing Hand Alterations Tailor: Jeimy Mccullough RVT, RDMS. Bilateral: Venous Doppler [...] above. Electronically Signed By: Franky Aceves MD [facility] [phone] 10/21/2024 5:23:34 PM CDT us Randy Bird NP IMG US PROCEDURES Monie l Result * Troponin I high-sensitivity (10/20/2024 1:01 PM CDT) Trop I hs 6 <=17 ng/L Comment: Interpretive Data For further [facility] resources including the diagnostic algorithm and an aid in interpretation, copy and paste this link: [email or web address]/[email or web address] Current Interpretive Data last revised 2020. Blood 10/20/2024 1:01 PM CDT 10/20/2024 1:33 PM CDT us Randy Bird NP LAB BLOOD ORDERABLES F inal Result [facility] Department [place] [address] * (ABNORMAL) Lactate (10/20/2024 1:01 PM CDT) Lactate 2.3(H) 0.7 - 2.0 mmol/L Blood 10/20/2024 1:01 PM CDT 10/20/2024 1:33 PM CDT us Shubham Mclaughlin MD LAB BLOOD ORDERABLES Final Resul t Performing Organization Address City/[facility]/ZIP Co de Phone Number [facility] Department of [address] [place] [address] * eGFR (10/20/2024 1:01 PM CDT) eGFR >90 >=60 mL/min/1. 73 [...] ORDERABLES F inal Result Performing Organization Address City/[facility]/ZIP Co de Phone Number [facility] Department [place] [address] * Critical Result Callback Chemistry (10/20/2024 1:01 PM CDT) Date Notified [id number] Time Notified 1403 [facility] TestName Calcium [facility] CATALAN Called/Read Back Tequila CATALAN Credentials RN [facility] CATALAN Called By BRII CATALAN Blood 10/20/2024 1:01 PM CDT 10/20/2024 1:32 PM CDT Randy Bird DIGITAL ASSOCIATE MEDIA DIRECTOR LAB BLOOD ORDERABLES F inal Result [facility] Department [place] [address] * (ABNORMAL) Pro B-type natriuretic peptide (10/20/2024 [...] CDT 10/20/2024 1:32 PM CDT Randy Bird DIGITAL ASSOCIATE MEDIA DIRECTOR LAB BLOOD ORDERABLES F inal Result Performing Organization Address [facility]/ZIP Co de Phone Number [facility] [place] [address] * (ABNORMAL) CBC with auto differential (10/20/2024 1:01 PM CDT) Pathologist [facility] WBC 11.6(H) 3.8 - 9.9 K/cumm Hgb 8.5(L) 11.9 - 15.5 g/dL [facility] Hct 26.1(L) 35.6 - 45.5 % [facility] Plt 361 150 - 400 K/cumm [facility] MPV 9.4 9.1 - 12.3 fL [facility] RBC 2.99(L) 3.90 - 5.20 M/cumm [facility] MCV 87.3 81.3 - 96.4 fL [facility] MCH 28.4 27.1 - 33.3 pg [facility] MCHC 32.6 32.3 - 35.7 g/dL [facility] RDW CV 16.8(H) 11.1 - 14.9 % [facility] RDW SD 52.0(H) 35.7 - 48.1 fL [facility] NRBC abs 0.04(H) 0.00 - 0.01 K/cumm [facility] Blood 10/20/2024 1:01 PM CDT 10/20/2024 1:32 PM CDT Randy Bird DIGITAL ASSOCIATE MEDIA DIRECTOR LAB BLOOD ORDERABLES F inal Result Performing Organization Address City/[facility]/ZIP Co de Phone Number [facility] Department [place] [address] * (ABNORMAL) Manual Differential (10/20/2024 1:01 PM CDT) Differential Manual Cells Counted 117 [facility] Neutrophil abs 10.7(H) 1.5 - 6.5 K/cumm [facility] Imm gran abs 0.0 0.0 - 0.1 K/cumm [facility] Lymphocyte abs 0.8 0.8 - 3.3 K/cumm [facility] Monocyte abs 0.1(L) 0.2 - 0.8 K/cumm [facility] Neutrophil pct 92.3 % [facility] Comment: Interpretive Data Percent cell count reference ranges are not reported, since discordance with absolute values may lead to misinterpretation of CBC data. Current Interpretive Data was last revised on 2017. Lymphocyte pct 6.8 % [facility] Comment: Interpretive Data Percent cell count reference ranges are not reported, since discordance with absolute values may lead to misinterpretation of CBC data. Current Interpretive Data was last revised on 2017. Monocyte pct 0.9 % [facility] Comment: Interpretive Data Percent cell count reference ranges are not reported, since discordance with absolute values may lead to misinterpretation of CBC data. Current Interpretive Data was last revised on 2017. Blood 10/20/2024 1:01 PM CDT 10/20/2024 1:35 PM CDT Randy Bird NP LAB BLOOD ORDERABLES F inal Result [facility] Department [place] [address] * aPTT (10/20/2024 1:01 PM CDT) Pathologist [facility] aPTT 35 28 - 38 sec Comment: Interpretive Data Heparin therapeutic range: 66.0 - 100.0 seconds. Range based on correlation with therapeutic heparin activity range of 0.3 - 0.7 Units/mL. Current interpretive data was last revised on 2023. Blood 10/20/2024 1:01 PM CDT 10/20/2024 1:16 PM CDT Narrative [facility] - 10/20/2024 1:40 PM CDT STAT PTT [...] drawn peripherally (not from CVC). Randy Bird NP LAB BLOOD ORDERABLES F inal Result Performing Organization Address [facility] Co de Phone Number [facility] Department [place] [address] * (ABNORMAL) Phosphorus (10/20/2024 1:01 PM CDT) Phosphorus, pl 1.8(L) 2.3 - 4.5 mg/dL Blood 10/20/2024 1:01 PM CDT 10/20/2024 1:32 PM CDT Randy Bird NP LAB BLOOD ORDERABLES F inal Result [facility] [place] [address] * Magnesium (10/20/2024 1:01 PM CDT) Pathologist [facility] Magnesium 1.6 1.4 - 2.5 mg/dL Blood 10/20/2024 1:01 PM CDT 10/20/2024 1:32 PM CDT Randy Bird DIGITAL ASSOCIATE MEDIA DIRECTOR LAB BLOOD ORDERABLES F inal Result [facility] Department [place] [address] * (ABNORMAL) Comprehensive metabolic panel (10/20/2024 1:01 PM CDT) Sodium 136 135 - 145 mmol/L Potassium, pl 2.8(L) 3.3 - 4.9 mmol/L [facility] Chloride 108 97 - 110 mmol/L [facility] Comment:Repeated and Verifie d CO2 20(L) 22 - 32 mmol/L [facility] Anion gap 8 2 - 15 mmol/L [facility] BUN 10 6 - 25 mg/dL [facility] Creatinine 0.29(L) 0.60 - 1.10 mg/dL [facility] Glucose 158 70 - 199 mg/dL [facility] Comment: Interpretive Data Fasting glucose >/= 126 [...] 2022. Calcium 5.4(C) 8.5 - 10.3 mg/dL [facility] Comment:Repeated and Verifie d Bilirubin, total 0.2 0.1 - 1.2 mg/dL [facility] Protein, pl 3.7(L) 6.5 - 8.5 g/dL [facility] Albumin 1.5(L) 3.5 - 5.0 g/dL [facility] Alk phos 94 40 - 130 Units/L [facility] ALT 20 7 - 45 Units/L [facility] AST 29 10 - 45 Units/L [facility] Blood 10/20/2024 1:01 PM CDT 10/20/2024 1:32 PM CDT Randy Bird DIGITAL ASSOCIATE MEDIA DIRECTOR LAB BLOOD ORDERABLES F inal Result [facility] [place] [address] * (ABNORMAL) Urinalysis reflex to microscopic and culture Urine, indwelling catheter (10/20/2024 11:35 AM CDT) Color, ur Yellow Yellow Clarity, ur Clear Clear [facility] Specific gravity, ur 1.042(H) 1.003 - 1.030 [facility] pH, urine 6.5 [facility] Comment: Interpretive Data U rine pH is affected by diet, medications, systemic acid-base disturbances, and renal tubular function. pH may affect urinary stone formation. For example, urine pH below 6.0 may help reduce the tendency for calcium phosphate stones and pH greater than 6.0 may reduce the tendency for uric acid stone formation. Source: [facility] Current Interpretive Data was last revised on 2017 Protein, ur ql 1+(A) Negative [facility] Glucose, ur ql Negative Negative [facility] Ketones, ur 2+(A) Negative [facility] Bilirubin, ur Negative Negative [facility] Blood, ur Negative Negative [facility] Urobilinogen, ur <2.0 <2.0 mg/dL [facility] Nitrite, ur Negative Negative [facility] Leukocyte esterase, ur Negative Negative [facility] UA reflex comment Reflex to microscopic UA will be performed. [facility] Urine, indwelling catheter 10/20/2024 11:35 AM CDT 10/20/2024 11:49 AM CDT Randy Bird NP LAB MICROBIOLOGY - GEN ERAL ORDERABLES Final Result [facility] Department [place] [address] * (ABNORMAL) Urinalysis, microscopic only (10/20/2024 11:35 AM CDT) WBC, ur 11-20(A) 0 - 5 /HPF RBC, ur 3-5(A) 0 - 2 /HPF [facility] Epithelial cells, squamous, ur 1-5 0 - 5 /HPF [facility] Epithelial cells, renal, ur 1-5(A) 0 - 0 /HPF [facility] Epithelial cells, transitional, ur 1-5 0 - 0 /HPF [facility] Bacteria, ur Trace(A) [facility] Mucous, ur Present(A) [facility] Hyaline casts, ur 11-20(A) 0 - 10 /LPF [facility] Culture Reflex Comment Reflex to urine culture will be performed. [facility] Urine, indwelling catheter 10/20/2024 11:35 AM CDT 10/20/2024 11:49 AM CDT Randy Bird DIGITAL ASSOCIATE MEDIA DIRECTOR LAB URINE ORDERABLES F inal Result Performing Organization Address [facility] Co de Phone Number [facility] Department [place] [address] * Urine culture Urine, indwelling catheter (10/20/2024 11:35 AM CDT) Report Final Report: Less than 100,000 colonies/mL (clinically insignificant growth based on current clinical standards) Organism (CLINICALLY INSIGNIFICANT GROWTH [facility] Urine, indwelling catheter 10/20/2024 11:35 AM CDT 10/20/2024 12:41 PM CDT Narrative [facility] - 10/21/2024 3:35 PM CDT Urine culture reflexed based upon urinalysis results. Testing performed by [facility] ([phone]) Randy Bird NP LAB MICROBIOLOGY - GEN ERAL ORDERABLES Final Result Performing Organization Address City/[facility]/ZIP Co de Phone Number [facility] Department [place] [address] * XR Chest 1 View (10/20/2024 9:03 [...] by: Geni Palafox M.D. Shubham Mclaughlin MD IM XR PROCEDURES Final Result * XR Abdomen [...] it. Electronically signed by: Shaq Ashley M.D. aRndy Bird DIGITAL ASSOCIATE MEDIA DIRECTOR IMG XR PROCEDURES Monie l Result * ECG 12 lead (10/20/2024 8:45 AM CDT) Ventricular Rate EKG/Min 144 BPM [facility] Atrial Rate 79 BPM [facility] QRS-Interval (MSEC) 82 ms [facility] QT-Interval (MSEC) 294 ms [facility] QTc 455 ms [facility] R [place] 19 degrees [facility] T [place] 219 degrees [facility] Diagnosis Atrial fibrillation with rapid ventricular response Nonspecific T wave abnormality Abnormal ECG When compared with ECG of 07-OCT-2024 09:30, Vent. rate has increased BY 67 BPM Nonspecific T wave abnormality, worse in Inferior leads Nonspecific T wave abnormality now evident in Anterolateral leads Confirmed by FELICITA CLARK M.D ([id number]) on 10/21/2024 12:36:54 PM [facility] 10/20/2024 8:45 AM CDT 10/21/2024 12:36 PM CDT Supriya Phillips MD ECG ORDERABLES Final Result Performing Organization Address [facility] Co de Phone Number [facility] * (ABNORMAL) POCT [id number], WB - ISTAT (10/20/2024 8:29 AM CDT) Pathologist [facility] Na POC 132(L) 135 - 145 mmol/L K POC 3.5 3.3 - 4.9 mmol/L [facility] Comment: Interpretive Data This method is not able to assess for hemolysis, which may falsely increase potassium concentrations. If further testing is needed to evaluate this result, consider in-laboratory plasma potassium. Current Interpretive Data was last revised on 2022. Glucose POC i-STAT 121 70 - 199 mg/dL [facility] Hct, POC 32.0(L) 35.6 - 45.5 % [facility] Blood 10/20/2024 8:29 AM CDT 10/20/2024 8:29 AM CDT Shubham Mclaughlin MD LAB POCT ORDERABLES - DEVICE Fin al Result Performing Organization Address City/[facility] Co de Phone Number [facility] Department [place] [address] * (ABNORMAL) Arterial Blood gas w/Lactate POCT (10/20/2024 8:25 AM CDT) [facility] Lactate POC i-STAT 1.3 0.7 - 2.0 mmol/L pH POC 7.47(H) 7.35 - 7.45 [facility] pCO2, Art POC 32(L) 35 - 45 mmHg [facility] PO2 POC 40(C) 80 - 105 mmHg [facility] CO2, total POC 24 20 - 30 mmol/L [facility] HCO3, POC 23 21 - 30 mmol/L [facility] BE POC 0 -2 - 3 mmol/L [facility] O2 sat POC 79(L) 95 - 98 % [facility] Blood 10/20/2024 8:25 AM CDT 10/20/2024 8:25 AM CDT Shubham Mclaughlin MD LAB BLOOD ORDERABLES Final Resul t [facility] Department [place] [address] * Blood culture Blood (10/20/2024 8:24 AM CDT) Report Final Report: No growth Blood 10/20/2024 8:24 AM CDT 10/20/2024 8:35 AM CDT Narrative [facility] - 10/24/2024 12:00 PM CDT Collection->Peripheral 1. [...] performance characteristics have been verified by the [facility]. For questions about this culture, contact the Microbiology Laboratory at [phone]. Interpretive data was last revised on 24. Shubham Mclaughlin MD LAB MICROBIOLOGY - GENERAL ORDER SCOT Final Result Performing Organization Address City/[facility]/ZIP Co de Phone Number [facility] Department [place] [address] * Troponin I high-sensitivity (10/20/2024 8:15 AM CDT) Trop I hs 7 <=17 ng/L Comment: Interpretive Data For further hscTnI resources including the diagnostic algorithm and an aid in interpretation, copy and paste this link: [email or web address].testcatalog.org/show/[email or web address] Current Interpretive Data last revised 2020. Blood 10/20/2024 8:15 AM CDT 10/20/2024 8:29 AM CDT Shubham Mclaughlin MD LAB BLOOD ORDERABLES Final Resul t Performing Organization Address [facility] Co de Phone Number [facility] Department [place] [address] * eGFR (10/20/2024 8:15 AM CDT) Pathologist [facility] eGFR >90 >=60 mL/min/1. 73 m2 Comment: [...] data was last reviewed 2021. Blood 10/20/2024 8:1 5 AM CDT 10/20/2024 8:29 AM CDT Shubham Mclaughlin MD LAB BLOOD ORDERABLES Final Resul t [facility] Department [place] [address] * (ABNORMAL) Differential, auto (10/20/2024 8:15 AM CDT) Neutrophil abs 10.6(H) 1.5 - 6.5 K/cumm Imm gran abs 1.3(H) 0.0 - 0.1 K/cumm [facility] Lymphocyte abs 1.1 0.8 - 3.3 K/cumm [facility] Monocyte abs 0.6 0.2 - 0.8 K/cumm [facility] Eosinophil abs 0.1 0.0 - 0.5 K/cumm [facility] Basophil abs 0.0 0.0 - 0.1 K/cumm [facility] Neutrophil pct 77.5 % [facility] Comment: Confirmed by smear review Interpretive Data Percent cell count reference ranges are not reported, since discordance with absolute values may lead to misinterpretation of CBC data. Current Interpretive Data was last revised on 2017. Imm gran pct 9.5 % [facility] Comment: Interpretive Data Percent cell count reference ranges are not reported, since discordance with absolute values may lead to misinterpretation of CBC data. Current Interpretive Data was last revised on 2017. Lymphocyte pct 7.9 % [facility] Comment: Interpretive Data Percent cell count reference ranges are not reported, since discordance with absolute values may lead to misinterpretation of CBC data. Current Interpretive Data was last revised on 2017. Monocyte pct 4.2 % [facility] Comment: Interpretive Data Percent cell count reference ranges are not reported, since discordance with absolute values may lead to misinterpretation of CBC data. Current Interpretive Data was last revised on 2017. Eosinophil pct 0.7 % [facility] Comment: Interpretive Data Percent cell count reference ranges are not reported, since discordance with absolute values may lead to misinterpretation of CBC data. Current Interpretive Data was last revised on 2017. Basophil pct 0.2 % [facility] Comment: Interpretive Data Percent cell count reference ranges are not reported, since discordance with absolute values may lead to misinterpretation of CBC data. Current Interpretive Data was last revised on 2017. Blood 10/20/2024 8:15 AM CDT 10/20/2024 8:29 AM CDT Shubham Mclaughlin MD LAB BLOOD ORDERABLES Final Resul t [facility] Department [place] [address] * (ABNORMAL) CBC with auto differential (10/20/2024 8:15 AM CDT) WBC 13.7(H) 3.8 - 9.9 K/cumm Hgb 11.3(L) 11.9 - 15.5 g/dL [facility] Hct 34.1(L) 35.6 - 45.5 % [facility] Plt 464(H) 150 - 400 K/cumm [facility] MPV 9.3 9.1 - 12.3 fL [facility] RBC 3.97 3.90 - 5.20 M/cumm [facility] MCV 85.9 81.3 - 96.4 fL [facility] MCH 28.5 27.1 - 33.3 pg [facility] MCHC 33.1 32.3 - 35.7 g/dL [facility] RDW CV 16.5(H) 11.1 - 14.9 % [facility] RDW SD 51.4(H) 35.7 - 48.1 fL [facility] NRBC abs 0.07(H) 0.00 - 0.01 K/cumm [facility] Blood 10/20/2024 8:15 AM CDT 10/20/2024 8:29 AM CDT Shubham Mclaughlin MD LAB BLOOD ORDERABLES Final Resul t [facility] Department [place] [address] * Blood culture Blood (10/20/2024 8:15 AM CDT) Report Final Report: No growth Blood 10/20/2024 8:15 AM CDT 10/20/2024 8:35 AM CDT Narrative [facility] - 10/24/2024 12:00 PM CDT Collection->Peripheral 1. [...] performance characteristics have been verified by the [facility]. For questions about this culture, contact the Microbiology Laboratory at [phone]. Interpretive data was last revised on 24. Shubham Mclaughlin MD LAB MICROBIOLOGY - GENERAL ORDER SCOT Final Result Performing Organization Address City/[facility]/ZIP Co de Phone Number [facility] Department [place] [address] * (ABNORMAL) Phosphorus (10/20/2024 8:15 AM CDT) Phosphorus, pl 2.2(L) 2.3 - 4.5 mg/dL Blood 10/20/2024 8:15 AM CDT 10/20/2024 8:29 AM CDT us Shubham Mclaughlin MD LAB BLOOD ORDERABLES Final Resul t Performing Organization Address City/[facility] Co de Phone Number [facility] [place] [address] * Magnesium (10/20/2024 8:15 AM CDT) Magnesium 1.8 1.4 - 2.5 mg/dL Blood 10/20/2024 8:15 AM CDT 10/20/2024 8:29 AM CDT us Shubham Mclaughlin MD LAB BLOOD ORDERABLES Final Resul t Performing Organization Address [facility] Phone Number [facility] Department [place] [address] * (ABNORMAL) Basic metabolic panel (10/20/2024 8:15 AM CDT) Pathologist [facility] Sodium 135 135 - 145 mmol/L Potassium, pl 3.6 3.3 - 4.9 mmol/L [facility] Chloride 98 97 - 110 mmol/L [facility] CO2 25 22 - 32 mmol/L [facility] Anion gap 12 2 - 15 mmol/L [facility] BUN 14 6 - 25 mg/dL [facility] Creatinine 0.39(L) 0.60 - 1.10 mg/dL [facility] Glucose 104 70 - 199 mg/dL [facility] Comment: Interpretive Data Fasting glucose >/= 126 [...] 2022. Calcium 7.7(L) 8.5 - 10.3 mg/dL [facility] Blood 10/20/2024 8:15 AM CDT 10/20/2024 8:29 AM CDT us Shubham Mclaughlin MD LAB BLOOD ORDERABLES Final Resul t Performing Organization Address City/[facility] Co de Phone Number [facility] Department [place] [address] * eGFR (10/19/2024 8:55 PM CDT) eGFR [...] ORDERABLE S Final Result Performing Organization Address City/[facility]/ZIP Co de Phone Number [facility] Department [place] [address] * (ABNORMAL) Differential, auto (10/19/2024 8:55 PM CDT) Neutrophil abs 10.0(H) 1.5 - 6.5 K/cumm Imm gran abs 1.5(H) 0.0 - 0.1 K/cumm [facility] Lymphocyte abs 1.1 0.8 - 3.3 K/cumm [facility] Monocyte abs 0.6 0.2 - 0.8 K/cumm [facility] Eosinophil abs 0.1 0.0 - 0.5 K/cumm [facility] Basophil abs 0.0 0.0 - 0.1 K/cumm [facility] Neutrophil pct 75.4 % [facility] Comment: Confirmed by smear review Interpretive Data Percent cell count reference ranges are not reported, since discordance with absolute values may lead to misinterpretation of CBC data. Current Interpretive Data was last revised on 2017. Imm gran pct 11.0 % [facility] Comment: Interpretive Data Percent cell count reference ranges are not reported, since discordance with absolute values may lead to misinterpretation of CBC data. Current Interpretive Data was last revised on 2017. Lymphocyte pct 8.2 % [facility] Comment: Interpretive Data Percent cell count reference ranges are not reported, since discordance with absolute values may lead to misinterpretation of CBC data. Current Interpretive Data was last revised on 2017. Monocyte pct 4.4 % [facility] Comment: Interpretive Data Percent cell count reference ranges are not reported, since discordance with absolute values may lead to misinterpretation of CBC data. Current Interpretive Data was last revised on 2017. Eosinophil pct 0.8 % [facility] Comment: Interpretive Data Percent cell count reference ranges are not reported, since discordance with absolute values may lead to misinterpretation of CBC data. Current Interpretive Data was last revised on 2017. Basophil pct 0.2 % [facility] Comment: Interpretive Data Percent cell count reference ranges are not reported, since discordance with absolute values may lead to misinterpretation of CBC data. Current Interpretive Data was last revised on 2017. Blood 10/19/2024 8:55 PM CDT 10/19/2024 9:44 PM CDT us Cinthya Means DIGITAL ASSOCIATE MEDIA DIRECTOR LAB BLOOD ORDERABLES Monie l Result [facility] Department [place] [address] * Thyroid Function [place] (10/19/2024 8:55 PM CDT) [facility] TSH 2.25 0.30 - 4.20 mcIUnit/mL Blood 10/19/2024 8:55 PM CDT 10/19/2024 9:45 PM CDT us Shubham Mclaughlin MD LAB BLOOD ORDERABLES Final Resul t Performing Organization Address [facility] Co de Phone Number [facility] [place] [address] * (ABNORMAL) CBC with auto differential (10/19/2024 8:55 PM CDT) [facility] WBC 13.2(H) 3.8 - 9.9 K/cumm Hgb 9.5(L) 11.9 - 15.5 g/dL [facility] Hct 28.5(L) 35.6 - 45.5 % [facility] Plt 435(H) 150 - 400 K/cumm [facility] MPV 9.5 9.1 - 12.3 fL [facility] RBC 3.33(L) 3.90 - 5.20 M/cumm [facility] MCV 85.6 81.3 - 96.4 fL [facility] MCH 28.5 27.1 - 33.3 pg [facility] MCHC 33.3 32.3 - 35.7 g/dL [facility] RDW CV 16.5(H) 11.1 - 14.9 % [facility] RDW SD 50.6(H) 35.7 - 48.1 fL [facility] NRBC abs 0.08(H) 0.00 - 0.01 K/cumm [facility] Blood 10/19/2024 8:55 PM CDT 10/19/2024 9:44 PM CDT Cinthya Noemijeovanny Means DIGITAL ASSOCIATE MEDIA DIRECTOR LAB BLOOD ORDERABLES Monie l Result [facility] [place] [address] * (ABNORMAL) Phosphorus (10/19/2024 8:55 PM CDT) [facility] Phosphorus, pl 1.8(L) 2.3 - 4.5 mg/dL Blood 10/19/2024 8:55 PM CDT 10/19/2024 9:45 PM CDT [place] Jeffery PA LAB BLOOD ORDERABLE S Final Result Performing Organization Address [facility] de Phone Number [facility] Department [place] [address] * (ABNORMAL) Basic metabolic panel (10/19/2024 8:55 PM CDT) [facility] Sodium 137 135 - 145 mmol/L Potassium, pl 3.6 3.3 - 4.9 mmol/L [facility] Chloride 100 97 - 110 mmol/L [facility] CO2 24 22 - 32 mmol/L [facility] Anion gap 13 2 - 15 mmol/L [facility] BUN 13 6 - 25 mg/dL [facility] Creatinine 0.42(L) 0.60 - 1.10 mg/dL [facility] Glucose 147 70 - 199 mg/dL [facility] Comment: Interpretive Data Fasting glucose >/= 126 [...] classification and Diagnosis of Diabetes Diabetes Care 2022; 46: [id number]. Current interpretive data was last revised 2022. Calcium 7.6(L) 8.5 - 10.3 mg/dL [facility] Blood 10/19/2024 8:55 PM CDT 10/19/2024 9:45 PM CDT [place] DUMONT LAB BLOOD ORDERABLE S Final Result Performing Organization Address City/[facility]/ZIP Co de Phone Number [facility] Department [place] [address] * (ABNORMAL) CBC with auto differential (10/19/2024 8:30 PM CDT) WBC 12.9(H) 3.8 - 9.9 K/cumm Hgb 9.5(L) 11.9 - 15.5 g/dL [facility] Hct 28.7(L) 35.6 - 45.5 % [facility] Plt 422(H) 150 - 400 K/cumm [facility] MPV 9.4 9.1 - 12.3 fL [facility] RBC 3.33(L) 3.90 - 5.20 M/cumm [facility] MCV 86.2 81.3 - 96.4 fL [facility] MCH 28.5 27.1 - 33.3 pg [facility] MCHC 33.1 32.3 - 35.7 g/dL [facility] RDW CV 16.3(H) 11.1 - 14.9 % [facility] RDW SD 50.3(H) 35.7 - 48.1 fL [facility] NRBC abs 0.10(H) 0.00 - 0.01 K/cumm [facility] Blood 10/19/2024 8:30 PM CDT 10/19/2024 9:44 PM CDT [place] DUMONT LAB BLOOD ORDERABLE S Final Result Performing Organization Address City/[facility]/ZIP Co de Phone Number [facility] Department [place] [address] * (ABNORMAL) Manual Differential (10/19/2024 8:30 PM CDT) Differential Manual Cells Counted 129 [facility] Neutrophil abs 10.7(H) 1.5 - 6.5 K/cumm [facility] Imm gran abs 0.2(H) 0.0 - 0.1 K/cumm [facility] Lymphocyte abs 0.9 0.8 - 3.3 K/cumm [facility] Monocyte abs 0.8 0.2 - 0.8 K/cumm [facility] Eosinophil abs 0.2 0.0 - 0.5 K/cumm [facility] Basophil abs 0.1 0.0 - 0.1 K/cumm [facility] Neutrophil pct 82.8 % [facility] Comment: Interpretive Data Percent cell count reference ranges are not reported, since discordance with absolute values may lead to misinterpretation of CBC data. Current Interpretive Data was last revised on 2017. Lymphocyte pct 7.0 % [facility] Comment: Interpretive Data Percent cell count reference ranges are not reported, since discordance with absolute values may lead to misinterpretation of CBC data. Current Interpretive Data was last revised on 2017. Monocyte pct 6.2 % [facility] Comment: Interpretive Data Percent cell count reference ranges are not reported, since discordance with absolute values may lead to misinterpretation of CBC data. Current Interpretive Data was last revised on 2017. Eosinophil pct 1.6 % [facility] Comment: Interpretive Data Percent cell count reference ranges are not reported, since discordance with absolute values may lead to misinterpretation of CBC data. Current Interpretive Data was last revised on 2017. Basophil pct 0.8 % [facility] Comment: Interpretive Data Percent cell count reference ranges are not reported, since discordance with absolute values may lead to misinterpretation of CBC data. Current Interpretive Data was last revised on 2017. Metamyelocyte pct 1.6(H) 0.0 - 0.0 % [facility] Blood 10/19/2024 8:30 PM CDT 10/19/2024 9:50 PM CDT us [place] DUMONT LAB BLOOD ORDERABLE S Final Result [facility] Department [place] [address] * XR Spine Lumbar 2 or 3 [...] signed by: Edil Bell M.D. Cinthya Means DIGITAL ASSOCIATE MEDIA DIRECTOR IMG XR PROCEDURES Final R esult * [...] it. Electronically signed by: Edil Bell M.D. us Cinthya Means DIGITAL ASSOCIATE MEDIA DIRECTOR IMG XR PROCEDURES Final R esult * [...] 1 PM CDT 10/18/2024 10:43 PM CDT us [place] DUMONT LAB BLOOD ORDERABLE S Final Result [facility] Department [place] [address] * (ABNORMAL) CBC with auto differential (10/18/2024 10:31 PM CDT) [facility] WBC 11.5(H) 3.8 - 9.9 K/cumm Hgb 9.0(L) 11.9 - 15.5 g/dL [facility] Hct 26.8(L) 35.6 - 45.5 % [facility] Plt 378 150 - 400 K/cumm [facility] MPV 9.3 9.1 - 12.3 fL [facility] RBC 3.16(L) 3.90 - 5.20 M/cumm [facility] MCV 84.8 81.3 - 96.4 fL [facility] MCH 28.5 27.1 - 33.3 pg [facility] MCHC 33.6 32.3 - 35.7 g/dL [facility] RDW CV 16.0(H) 11.1 - 14.9 % [facility] RDW SD 49.3(H) 35.7 - 48.1 fL [facility] NRBC abs 0.07(H) 0.00 - 0.01 K/cumm [facility] Blood 10/18/2024 10:3 1 PM CDT 10/18/2024 10:43 PM CDT [place] DUMONT LAB BLOOD ORDERABLE S Final Result [facility] Department [place] [address] * (ABNORMAL) Manual Differential (10/18/2024 10:31 PM CDT) Pathologist [facility] Differential Manual Cells Counted 126 [facility] Neutrophil abs 9.9(H) 1.5 - 6.5 K/cumm [facility] Imm gran abs 0.3(H) 0.0 - 0.1 K/cumm [facility] Lymphocyte abs 0.8 0.8 - 3.3 K/cumm [facility] Monocyte abs 0.5 0.2 - 0.8 K/cumm [facility] Eosinophil abs 0.1 0.0 - 0.5 K/cumm [facility] Neutrophil pct 85.7 % [facility] Comment: Interpretive Data Percent cell count reference ranges are not reported, since discordance with absolute values may lead to misinterpretation of CBC data. Current Interpretive Data was last revised on 2017. Lymphocyte pct 7.1 % [facility] Comment: Interpretive Data Percent cell count reference ranges are not reported, since discordance with absolute values may lead to misinterpretation of CBC data. Current Interpretive Data was last revised on 2017. Monocyte pct 4.0 % [facility] Comment: Interpretive Data Percent cell count reference ranges are not reported, since discordance with absolute values may lead to misinterpretation of CBC data. Current Interpretive Data was last revised on 2017. Eosinophil pct 0.8 % [facility] Comment: Interpretive Data Percent cell count reference ranges are not reported, since discordance with absolute values may lead to misinterpretation of CBC data. Current Interpretive Data was last revised on 2017. Metamyelocyte pct 0.8(H) 0.0 - 0.0 % [facility] Myelocyte pct 1.6(H) 0.0 - 0.0 % [facility] Blood 10/18/2024 10:3 1 PM CDT 10/18/2024 10:47 PM CDT us [place] DUMONT LAB BLOOD ORDERABLE S Final Result [facility] Department [place] [address] * (ABNORMAL) Phosphorus (10/18/2024 10:31 PM CDT) Pathologist [facility] Phosphorus, pl 2.2(L) 2.3 - 4.5 mg/dL Blood 10/18/2024 10:3 1 PM CDT 10/18/2024 10:43 PM CDT [place] DUMONT LAB BLOOD ORDERABLE S Final Result [facility] Department [place] [address] * (ABNORMAL) Basic metabolic panel (10/18/2024 10:31 PM CDT) Sodium 135 135 - 145 mmol/L Potassium, pl 3.5 3.3 - 4.9 mmol/L [facility] Chloride 102 97 - 110 mmol/L [facility] CO2 25 22 - 32 mmol/L [facility] Anion gap 8 2 - 15 mmol/L [facility] BUN 11 6 - 25 mg/dL [facility] Creatinine 0.44(L) 0.60 - 1.10 mg/dL [facility] Glucose 140 70 - 199 mg/dL [facility] Comment: Interpretive Data Fasting glucose >/= 126 [...] 2022. Calcium 7.4(L) 8.5 - 10.3 mg/dL [facility] Blood 10/18/2024 10:3 1 PM CDT 10/18/2024 10:43 PM CDT [place] DUMONT LAB BLOOD ORDERABLE S Final Result Performing Organization Address City/[facility]/ZIP Co de Phone Number [facility] Department [place] [address] * XR Chest 1 View (10/18/2024 9:59 [...] signed by: Omid Anderson M.D. Adarsh Oconnor DIGITAL ASSOCIATE MEDIA DIRECTOR IMG XR PROCEDURES Final Result * eGFR [...] DUMONT LAB BLOOD ORDERABLE S Final Result [facility] Department [place] [address] * (ABNORMAL) Differential, auto (10/18/2024 2:13 AM CDT) Neutrophil abs 7.7(H) 1.5 - 6.5 K/cumm Imm gran abs 0.8(H) 0.0 - 0.1 K/cumm [facility] Lymphocyte abs 0.8 0.8 - 3.3 K/cumm [facility] Monocyte abs 0.7 0.2 - 0.8 K/cumm [facility] Eosinophil abs 0.1 0.0 - 0.5 K/cumm [facility] Basophil abs 0.1 0.0 - 0.1 K/cumm [facility] Neutrophil pct 75.4 % [facility] Comment: Confirmed by smear review Interpretive Data Percent cell count reference ranges are not reported, since discordance with absolute values may lead to misinterpretation of CBC data. Current Interpretive Data was last revised on 2017. Imm gran pct 8.2 % [facility] Comment: Interpretive Data Percent cell count reference ranges are not reported, since discordance with absolute values may lead to misinterpretation of CBC data. Current Interpretive Data was last revised on 2017. Lymphocyte pct 7.7 % [facility] Comment: Interpretive Data Percent cell count reference ranges are not reported, since discordance with absolute values may lead to misinterpretation of CBC data. Current Interpretive Data was last revised on 2017. Monocyte pct 7.1 % [facility] Comment: Interpretive Data Percent cell count reference ranges are not reported, since discordance with absolute values may lead to misinterpretation of CBC data. Current Interpretive Data was last revised on 2017. Eosinophil pct 0.5 % [facility] Comment: Interpretive Data Percent cell count reference ranges are not reported, since discordance with absolute values may lead to misinterpretation of CBC data. Current Interpretive Data was last revised on 2017. Basophil pct 1.1 % [facility] Comment: Interpretive Data Percent cell count reference ranges are not reported, since discordance with absolute values may lead to misinterpretation of CBC data. Current Interpretive Data was last revised on 2017. Blood 10/18/2024 2:13 AM CDT 10/18/2024 2:30 AM CDT [place] DUMONT LAB BLOOD ORDERABLE S Final Result [facility] Department [place] [address] * (ABNORMAL) CBC with auto differential (10/18/2024 2:13 AM CDT) WBC 10.3(H) 3.8 - 9.9 K/cumm Hgb 9.6(L) 11.9 - 15.5 g/dL [facility] Hct 28.2(L) 35.6 - 45.5 % [facility] Plt 347 150 - 400 K/cumm [facility] MPV 9.7 9.1 - 12.3 fL [facility] RBC 3.31(L) 3.90 - 5.20 M/cumm [facility] MCV 85.2 81.3 - 96.4 fL [facility] MCH 29.0 27.1 - 33.3 pg [facility] MCHC 34.0 32.3 - 35.7 g/dL [facility] RDW CV 16.1(H) 11.1 - 14.9 % [facility] RDW SD 50.2(H) 35.7 - 48.1 fL [facility] NRBC abs 0.03(H) 0.00 - 0.01 K/cumm [facility] Blood 10/18/2024 2:13 AM CDT 10/18/2024 2:30 AM CDT [place] DUMONT LAB BLOOD ORDERABLE S Final Result Performing Organization Address [facility] Co de Phone Number [facility] [place] [address] * Type and screen (10/18/2024 2:13 AM CDT) Pathologist [facility] ABO Rh A Positive [place], indirect Negative [facility] Blood 10/18/2024 2:13 AM CDT 10/18/2024 2:31 AM CDT Narrative [facility] - 10/18/2024 3:32 AM CDT Has the patient had Daratumumab or Isatuximab in the past 6 months?->Unknown [place] DUMONT LAB BLOOD BANK TEST ORDERABLES Final Result Performing Organization Address [facility] de Phone Number [facility] Department [place] [address] * Phosphorus (10/18/2024 2:13 AM CDT) Pathologist [facility] Phosphorus, pl 2.3 2.3 - 4.5 mg/dL Blood 10/18/2024 2:13 AM CDT 10/18/2024 2:30 AM CDT [place] DUMONT LAB BLOOD ORDERABLE S Final Result Performing Organization Address [facility] Co de Phone Number [facility] Department [place] [address] * (ABNORMAL) Basic metabolic panel (10/18/2024 2:13 AM CDT) Sodium 135 135 - 145 mmol/L Potassium, pl 3.8 3.3 - 4.9 mmol/L [facility] Chloride 100 97 - 110 mmol/L [facility] CO2 24 22 - 32 mmol/L [facility] Anion gap 11 2 - 15 mmol/L [facility] BUN 11 6 - 25 mg/dL [facility] Creatinine 0.49(L) 0.60 - 1.10 mg/dL [facility] Glucose 112 70 - 199 mg/dL [facility] Comment: Interpretive Data Fasting glucose >/= 126 [...] 2022. Calcium 7.5(L) 8.5 - 10.3 mg/dL [facility] Blood 10/18/2024 2:13 AM CDT 10/18/2024 2:30 AM CDT us [place] DUMONT LAB BLOOD ORDERABLE S Final Result Performing Organization Address City/State/[facility] Co de Phone Number [facility] Department [place] [address] * POCT glucose (10/17/2024 11:17 AM CDT) Glucose, POC 109 70 - 199 mg/dL Blood 10/17/2024 11:1 7 AM CDT 10/17/2024 11:17 AM CDT us Randell Corona MD LAB POCT ORDERABLES - DEVICE Final Result Performing Organization Address City/State/[facility] de Phone Number [facility] [place] [address] * eGFR (10/17/2024 5:29 AM CDT) eGFR [...] ORDERABLE S Final Result Performing Organization Address [facility] Co de Phone Number [facility] [place] [address] * (ABNORMAL) Differential, auto (10/17/2024 5:29 AM CDT) Neutrophil abs 8.2(H) 1.5 - 6.5 K/cumm Imm gran abs 0.5(H) 0.0 - 0.1 K/cumm [facility] Lymphocyte abs 0.6(L) 0.8 - 3.3 K/cumm [facility] Monocyte abs 0.6 0.2 - 0.8 K/cumm [facility] Eosinophil abs 0.1 0.0 - 0.5 K/cumm [facility] Basophil abs 0.1 0.0 - 0.1 K/cumm [facility] Neutrophil pct 81.3 % [facility] Comment: Confirmed by smear review Interpretive Data Percent cell count reference ranges are not reported, since discordance with absolute values may lead to misinterpretation of CBC data. Current Interpretive Data was last revised on 2017. Imm gran pct 4.5 % [facility] Comment: Interpretive Data Percent cell count reference ranges are not reported, since discordance with absolute values may lead to misinterpretation of CBC data. Current Interpretive Data was last revised on 2017. Lymphocyte pct 6.4 % [facility] Comment: Interpretive Data Percent cell count reference ranges are not reported, since discordance with absolute values may lead to misinterpretation of CBC data. Current Interpretive Data was last revised on 2017. Monocyte pct 6.4 % [facility] Comment: Interpretive Data Percent cell count reference ranges are not reported, since discordance with absolute values may lead to misinterpretation of CBC data. Current Interpretive Data was last revised on 2017. Eosinophil pct 0.7 % [facility] Comment: Interpretive Data Percent cell count reference ranges are not reported, since discordance with absolute values may lead to misinterpretation of CBC data. Current Interpretive Data was last revised on 2017. Basophil pct 0.7 % [facility] Comment: Interpretive Data Percent cell count reference ranges are not reported, since discordance with absolute values may lead to misinterpretation of CBC data. Current Interpretive Data was last revised on 2017. Blood 10/17/2024 5:29 AM CDT 10/17/2024 5:45 AM CDT us [place] DUMONT LAB BLOOD ORDERABLE S Final Result [facility] Department [place] [address] * (ABNORMAL) CBC with auto differential (10/17/2024 5:29 AM CDT) [facility] WBC 10.1(H) 3.8 - 9.9 K/cumm Hgb 9.7(L) 11.9 - 15.5 g/dL [facility] Hct 29.3(L) 35.6 - 45.5 % [facility] Plt 350 150 - 400 K/cumm [facility] MPV 9.8 9.1 - 12.3 fL [facility] RBC 3.43(L) 3.90 - 5.20 M/cumm [facility] MCV 85.4 81.3 - 96.4 fL [facility] MCH 28.3 27.1 - 33.3 pg [facility] MCHC 33.1 32.3 - 35.7 g/dL [facility] RDW CV 16.0(H) 11.1 - 14.9 % [facility] RDW SD 49.6(H) 35.7 - 48.1 fL [facility] NRBC abs 0.02(H) 0.00 - 0.01 K/cumm [facility] Blood 10/17/2024 5:29 AM CDT 10/17/2024 5:45 AM CDT [place] DUMONT LAB BLOOD ORDERABLE S Final Result Performing Organization Address City/[facility] Co de Phone Number [facility] [address] [place] [address] * Phosphorus (10/17/2024 5:29 AM CDT) [facility] Phosphorus, pl 2.6 2.3 - 4.5 mg/dL Blood 10/17/2024 5:29 AM CDT 10/17/2024 5:46 AM CDT [place] DUMONT LAB BLOOD ORDERABLE S Final Result Performing Organization Address City/[facility]/ZIP Co de Phone Number [facility] [address] [place] [address] * (ABNORMAL) Basic metabolic panel (10/17/2024 5:29 AM CDT) Pathologist [facility] Sodium 135 135 - 145 mmol/L Potassium, pl 3.7 3.3 - 4.9 mmol/L [facility] Chloride 99 97 - 110 mmol/L [facility] CO2 24 22 - 32 mmol/L [facility] Anion gap 12 2 - 15 mmol/L [facility] BUN 9 6 - 25 mg/dL [facility] Creatinine 0.44(L) 0.60 - 1.10 mg/dL [facility] [facility] Glucose 165 70 - 199 mg/dL [facility] Comment: Interpretive Data Fasting glucose >/= 126 [...] 2022. Calcium 7.1(L) 8.5 - 10.3 mg/dL [facility] Blood 10/17/2024 5:29 AM CDT 10/17/2024 5:46 AM CDT [place] DUMONT LAB BLOOD ORDERABLE S Final Result [facility] Department [place] [address] * eGFR (10/16/2024 6:13 AM [employer]) [facility] eGFR >90 >=60 mL/min/1. 73 m2 Comment: [...] last reviewed 2021. Blood 10/16/2024 6:13 AM [employer] 10/16/2024 6:30 AM [employer] Cinthya Means NP LAB BLOOD ORDERABLES Monie hester Result [facility] Department [place] [address] * (ABNORMAL) Basic metabolic panel (10/16/2024 6:13 AM [employer]) Sodium 131(L) 135 - 145 mmol/L Potassium, pl 3.5 3.3 - 4.9 mmol/L [facility] Chloride 95(L) 97 - 110 mmol/L [facility] CO2 22 22 - 32 mmol/L [facility] Anion gap 14 2 - 15 mmol/L [facility] BUN 7 6 - 25 mg/dL [facility] Creatinine 0.35(L) 0.60 - 1.10 mg/dL [facility] Glucose 97 70 - 199 mg/dL [facility] Comment: Interpretive Data Fasting glucose >/= 126 [...] 2022. Calcium 7.2(L) 8.5 - 10.3 mg/dL [facility] Blood 10/16/2024 6:13 AM [employer] 10/16/2024 6:30 AM [employer] Cinthya Means DIGITAL ASSOCIATE MEDIA DIRECTOR LAB BLOOD ORDERABLES Monie l Result Performing Organization Address [facility] Co de Phone Number [facility] of [address] [place] [address] * eGFR (10/16/2024 12:54 AM [employer]) eGFR >90 >=60 mL/min/1. 73 m2 Comment: [...] reviewed 2021. Blood 10/16/2024 12:5 4 AM [employer] 10/16/2024 1:23 AM [employer] Cinthya Means DIGITAL ASSOCIATE MEDIA DIRECTOR LAB BLOOD ORDERABLES Monie l Result Performing Organization Address City/[facility] Co de Phone Number [facility] Department [place] [address] * eGFR (10/16/2024 12:54 AM [employer]) eGFR >90 >=60 mL/min/1. 73 m2 Comment: [...] reviewed 2021. Blood 10/16/2024 12:5 4 AM [employer] 10/16/2024 1:24 AM [employer] us [place] DUMONT LAB BLOOD ORDERABLE S Final Result [facility] Department [place] [address] * (ABNORMAL) CBC with auto differential (10/16/2024 12:54 AM [employer]) Pathologist [facility] WBC 13.2(H) 3.8 - 9.9 K/cumm Hgb 9.8(L) 11.9 - 15.5 g/dL [facility] Hct 28.8(L) 35.6 - 45.5 % [facility] Plt 270 150 - 400 K/cumm [facility] MPV 9.9 9.1 - 12.3 fL [facility] RBC 3.40(L) 3.90 - 5.20 M/cumm [facility] MCV 84.7 81.3 - 96.4 fL [facility] MCH 28.8 27.1 - 33.3 pg [facility] MCHC 34.0 32.3 - 35.7 g/dL [facility] RDW CV 15.8(H) 11.1 - 14.9 % [facility] RDW SD 47.6 35.7 - 48.1 fL [facility] NRBC abs 0.03(H) 0.00 - 0.01 K/cumm [facility] Blood 10/16/2024 12:5 4 AM [employer] 10/16/2024 1:24 AM [employer] [place] DUMONT LAB BLOOD ORDERABLE S Final Result [facility] Department [place] [address] * (ABNORMAL) Manual Differential (10/16/2024 12:54 AM [employer]) Differential Manual Cells Counted 131 [facility] Neutrophil abs 11.7(H) 1.5 - 6.5 K/cumm [facility] Imm gran abs 0.0 0.0 - 0.1 K/cumm [facility] Lymphocyte abs 0.8 0.8 - 3.3 K/cumm [facility] Monocyte abs 0.7 0.2 - 0.8 K/cumm [facility] Neutrophil pct 88.6 % [facility] Comment: Interpretive Data Percent cell count reference ranges are not reported, since discordance with absolute values may lead to misinterpretation of CBC data. Current Interpretive Data was last revised on 2017. Lymphocyte pct 6.1 % [facility] Comment: Interpretive Data Percent cell count reference ranges are not reported, since discordance with absolute values may lead to misinterpretation of CBC data. Current Interpretive Data was last revised on 2017. Monocyte pct 5.3 % [facility] Comment: Interpretive Data Percent cell count reference ranges are not reported, since discordance with absolute values may lead to misinterpretation of CBC data. Current Interpretive Data was last revised on 2017. Blood 10/16/2024 12:5 4 AM [employer] 10/16/2024 1:29 AM [employer] [place] DUMONT LAB BLOOD ORDERABLE S Final Result [facility] Department [place] [address] * Phosphorus (10/16/2024 12:54 AM [employer]) Pathologist [facility] Phosphorus, pl 2.9 2.3 - 4.5 mg/dL Blood 10/16/2024 12:5 4 AM [employer] 10/16/2024 1:24 AM [employer] [place] DUMONT LAB BLOOD ORDERABLE S Final Result Performing Organization Address [facility] de Phone Number [facility] Department [place] [address] * (ABNORMAL) Basic metabolic panel (10/16/2024 12:54 AM [employer]) [facility] Sodium 130(L) 135 - 145 mmol/L Potassium, pl 3.4 3.3 - 4.9 mmol/L [facility] Chloride 95(L) 97 - 110 mmol/L [facility] CO2 22 22 - 32 mmol/L [facility] Anion gap 13 2 - 15 mmol/L [facility] BUN 7 6 - 25 mg/dL [facility] Creatinine 0.34(L) 0.60 - 1.10 mg/dL [facility] Glucose 100 70 - 199 mg/dL [facility] Comment: Interpretive Data Fasting glucose >/= 126 [...] 2022. Calcium 7.4(L) 8.5 - 10.3 mg/dL [facility] Blood 10/16/2024 12:5 4 AM [employer] 10/16/2024 1:24 AM [employer] us [place] DUMONT LAB BLOOD ORDERABLE S Final Result [facility] Department [place] [address] * (ABNORMAL) Basic metabolic panel (10/16/2024 12:54 AM [employer]) Sodium 129(L) 135 - 145 mmol/L Potassium, pl 3.4 3.3 - 4.9 mmol/L [facility] Chloride 95(L) 97 - 110 mmol/L [facility] CO2 22 22 - 32 mmol/L [facility] Anion gap 12 2 - 15 mmol/L [facility] BUN 7 6 - 25 mg/dL [facility] Creatinine 0.36(L) 0.60 - 1.10 mg/dL [facility] Glucose 104 70 - 199 mg/dL [facility] Comment: Interpretive Data Fasting glucose >/= 126 [...] 2022. Calcium 7.2(L) 8.5 - 10.3 mg/dL [facility] Blood 10/16/2024 12:5 4 AM [employer] 10/16/2024 1:23 AM [employer] us Cinthya Means DIGITAL ASSOCIATE MEDIA DIRECTOR LAB BLOOD ORDERABLES Monie l Result [facility] Department [place] [address] * eGFR (10/15/2024 9:54 AM [employer]) Pathologist [facility] eGFR >90 >=60 mL/min/1. 73 m2 Comment: [...] last reviewed 2021. Blood 10/15/2024 9:54 AM [employer] 10/15/2024 10:09 AM [employer] Cinthya Means NP LAB BLOOD ORDERABLES Monie hester Result [facility] Department [place] [address] * (ABNORMAL) Differential, auto (10/15/2024 9:54 AM [employer]) Pathologist [facility] Neutrophil abs 14.9(H) 1.5 - 6.5 K/cumm Imm gran abs 0.2(H) 0.0 - 0.1 K/cumm [facility] Lymphocyte abs 0.6(L) 0.8 - 3.3 K/cumm [facility] Monocyte abs 0.7 0.2 - 0.8 K/cumm [facility] Eosinophil abs 0.1 0.0 - 0.5 K/cumm [facility] Basophil abs 0.1 0.0 - 0.1 K/cumm [facility] Neutrophil pct 90.3 % [facility] Comment: Confirmed by smear review Interpretive Data Percent cell count reference ranges are not reported, since discordance with absolute values may lead to misinterpretation of CBC data. Current Interpretive Data was last revised on 2017. Imm gran pct 1.0 % [facility] Comment: Interpretive Data Percent cell count reference ranges are not reported, since discordance with absolute values may lead to misinterpretation of CBC data. Current Interpretive Data was last revised on 2017. Lymphocyte pct 3.4 % [facility] Comment: Interpretive Data Percent cell count reference ranges are not reported, since discordance with absolute values may lead to misinterpretation of CBC data. Current Interpretive Data was last revised on 2017. Monocyte pct 4.3 % [facility] Comment: Interpretive Data Percent cell count reference ranges are not reported, since discordance with absolute values may lead to misinterpretation of CBC data. Current Interpretive Data was last revised on 2017. Eosinophil pct 0.4 % [facility] Comment: Interpretive Data Percent cell count reference ranges are not reported, since discordance with absolute values may lead to misinterpretation of CBC data. Current Interpretive Data was last revised on 2017. Basophil pct 0.6 % [facility] Comment: Interpretive Data Percent cell count reference ranges are not reported, since discordance with absolute values may lead to misinterpretation of CBC data. Current Interpretive Data was last revised on 2017. Blood 10/15/2024 9:54 AM [employer] 10/15/2024 10:09 AM [employer] us Cinthya Means DIGITAL ASSOCIATE MEDIA DIRECTOR LAB BLOOD ORDERABLES Monie l Result [facility] Department [place] [address] * (ABNORMAL) CBC with auto differential (10/15/2024 9:54 AM [employer]) WBC 16.5(H) 3.8 - 9.9 K/cumm Hgb 9.7(L) 11.9 - 15.5 g/dL [facility] Hct 28.7(L) 35.6 - 45.5 % [facility] Plt 261 150 - 400 K/cumm [facility] MPV 9.8 9.1 - 12.3 fL [facility] RBC 3.36(L) 3.90 - 5.20 M/cumm [facility] MCV 85.4 81.3 - 96.4 fL [facility] MCH 28.9 27.1 - 33.3 pg [facility] MCHC 33.8 32.3 - 35.7 g/dL [facility] RDW CV 15.4(H) 11.1 - 14.9 % [facility] RDW SD 47.3 35.7 - 48.1 fL [facility] NRBC abs 0.02(H) 0.00 - 0.01 K/cumm [facility] Blood 10/15/2024 9:54 AM [employer] 10/15/2024 10:09 AM [employer] Cinthya Means DIGITAL ASSOCIATE MEDIA DIRECTOR LAB BLOOD ORDERABLES Monie l Result [facility] Department [place] [address] * (ABNORMAL) Basic metabolic panel (10/15/2024 9:54 AM [employer]) Sodium 127(L) 135 - 145 mmol/L Potassium, pl 3.7 3.3 - 4.9 mmol/L [facility] Chloride 90(L) 97 - 110 mmol/L [facility] CO2 23 22 - 32 mmol/L [facility] Anion gap 14 2 - 15 mmol/L [facility] BUN 8 6 - 25 mg/dL [facility] Creatinine 0.39(L) 0.60 - 1.10 mg/dL [facility] Glucose 103 70 - 199 mg/dL [facility] Comment: Interpretive Data Fasting glucose >/= 126 [...] mg/dL [facility] Blood 10/15/2024 9:54 AM [employer] 10/15/2024 10:09 AM [employer] us Cinthya Means DIGITAL ASSOCIATE MEDIA DIRECTOR LAB BLOOD ORDERABLES Monie l Result [facility] Department [place] [address] * eGFR (10/14/2024 8:33 PM [employer]) eGFR >90 >=60 mL/min/1. 73 m2 Comment: [...] last reviewed 2021. Blood 10/14/2024 8:33 PM [employer] 10/14/2024 8:48 PM [employer] us [place] Jeffery PA LAB BLOOD ORDERABLE S Final Result [facility] Department [place] [address] * (ABNORMAL) Differential, auto (10/14/2024 8:33 PM [employer]) Neutrophil abs 20.5(H) 1.5 - 6.5 K/cumm Imm gran abs 0.1 0.0 - 0.1 K/cumm [facility] Lymphocyte abs 0.6(L) 0.8 - 3.3 K/cumm [facility] Monocyte abs 0.9(H) 0.2 - 0.8 K/cumm [facility] Eosinophil abs 0.0 0.0 - 0.5 K/cumm [facility] Basophil abs 0.1 0.0 - 0.1 K/cumm [facility] Neutrophil pct 92.0 % [facility] Comment: Consistent with previous result Interpretive Data Percent cell count reference ranges are not reported, since discordance with absolute values may lead to misinterpretation of CBC data. Current Interpretive Data was last revised on 2017. Imm gran pct 0.6 % [facility] Comment: Interpretive Data Percent cell count reference ranges are not reported, since discordance with absolute values may lead to misinterpretation of CBC data. Current Interpretive Data was last revised on 2017. Lymphocyte pct 2.6 % [facility] Comment: Interpretive Data Percent cell count reference ranges are not reported, since discordance with absolute values may lead to misinterpretation of CBC data. Current Interpretive Data was last revised on 2017. Monocyte pct 4.0 % [facility] Comment: Interpretive Data Percent cell count reference ranges are not reported, since discordance with absolute values may lead to misinterpretation of CBC data. Current Interpretive Data was last revised on 2017. Eosinophil pct 0.2 % [facility] Comment: Interpretive Data Percent cell count reference ranges are not reported, since discordance with absolute values may lead to misinterpretation of CBC data. Current Interpretive Data was last revised on 2017. Basophil pct 0.6 % [facility] Comment: Interpretive Data Percent cell count reference ranges are not reported, since discordance with absolute values may lead to misinterpretation of CBC data. Current Interpretive Data was last revised on 2017. Blood 10/14/2024 8:33 PM [employer] 10/14/2024 8:48 PM [employer] [place] DUMONT LAB BLOOD ORDERABLE S Final Result Performing Organization Address City/[facility]/ZIP Co de Phone Number [facility] Department [place] [address] * (ABNORMAL) CBC with auto differential (10/14/2024 8:33 PM [employer]) WBC 22.2(H) 3.8 - 9.9 K/cumm Hgb 10.0(L) 11.9 - 15.5 g/dL [facility] Hct 29.7(L) 35.6 - 45.5 % [facility] Plt 275 150 - 400 K/cumm [facility] MPV 9.7 9.1 - 12.3 fL [facility] RBC 3.47(L) 3.90 - 5.20 M/cumm [facility] MCV 85.6 81.3 - 96.4 fL [facility] MCH 28.8 27.1 - 33.3 pg [facility] MCHC 33.7 32.3 - 35.7 g/dL [facility] RDW CV 15.5(H) 11.1 - 14.9 % [facility] RDW SD 47.9 35.7 - 48.1 fL [facility] NRBC abs 0.00 0.00 - 0.01 K/cumm [facility] Blood 10/14/2024 8:33 PM [employer] 10/14/2024 8:48 PM [employer] [place] DUMONT LAB BLOOD ORDERABLE S Final Result [facility] [place] [address] * Type and screen (10/14/2024 8:33 PM [employer]) Pathologist [facility] ABO Rh A Positive [place], indirect Negative [facility] Blood 10/14/2024 8:33 PM [employer] 10/14/2024 9:41 PM [employer] Narrative [facility] - 10/14/2024 10:14 PM [employer] Has the patient had Daratumumab or Isatuximab in the past 6 months?->Unknown [place] DUMONT LAB BLOOD BANK TEST ORDERABLES Final Result [facility] [place] [address] * (ABNORMAL) Phosphorus (10/14/2024 8:33 PM [employer]) [facility] Phosphorus, pl 2.2(L) 2.3 - 4.5 mg/dL Blood 10/14/2024 8:33 PM [employer] 10/14/2024 8:48 PM [employer] [place] DUMONT LAB BLOOD ORDERABLE S Final Result Performing Organization Address City/[facility]/ZIP Co de Phone Number [facility] Department [place] [address] * Magnesium (10/14/2024 8:33 PM [employer]) [facility] Magnesium 1.8 1.4 - 2.5 mg/dL Blood 10/14/2024 8:33 PM [employer] 10/14/2024 8:48 PM [employer] [place] DUMONT LAB BLOOD ORDERABLE S Final Result Performing Organization Address City/[facility]/ZIP Co de Phone Number [facility] Department [place] [address] * (ABNORMAL) Basic metabolic panel (10/14/2024 8:33 PM [employer]) [facility] Sodium 125(L) 135 - 145 mmol/L Potassium, pl 4.0 3.3 - 4.9 mmol/L [facility] Chloride 89(L) 97 - 110 mmol/L [facility] CO2 25 22 - 32 mmol/L [facility] Anion gap 11 2 - 15 mmol/L [facility] BUN 10 6 - 25 mg/dL [facility] Creatinine 0.47(L) 0.60 - 1.10 mg/dL [facility] Glucose 99 70 - 199 mg/dL [facility] Comment: Interpretive Data Fasting glucose >/= 126 [...] 2022. Calcium 7.4(L) 8.5 - 10.3 mg/dL [facility] Blood 10/14/2024 8:33 PM [employer] 10/14/2024 8:48 PM [employer] us [place] DUM[place] LAB BLOOD ORDERABLE S Final Result [facility] Department [place] [address] * XR Abdomen Ap 1 Vw (10/14/2024 4:00 PM [employer]) Anatomical Region Laterality Modality Body, Abdomen N/A Digital Radiogra phy 10/14/2024 4:56 PM [employer] Impressions 10/14/2024 5:09 PM [employer] Gaseous dilation of colon is seen in [...] López M.D., Ph.D Narrative 10/14/2024 5:09 PM [employer] EXAMINATION: Abdomen, one view. HISTORY: Abdominal pain. [...] Electronically signed by: Fan López M.D., Ph.D Haley De Jesus NP IMG XR PROCEDURES Final R esult * (ABNORMAL) C. difficile testing Stool (10/14/2024 10:57 AM [employer]) [facility] Result Positive Negative Toxin Result Positive Negative [facility] C. diff result Positive, free toxin(A) Negative, free toxin [facility] C. diff interp Toxigenic Clostridioides (Clostridium) difficile detected. Analysis was performed using a two-step methodology using glutamate dehydrogenase antigen detection followed by detection of C. difficile toxin(s). [facility] Stool 10/14/2024 10:5 7 AM [employer] 10/14/2024 11:15 AM [employer] Haley De Jesus NP LAB MICROBIOLOGY - GENERA L ORDERABLES Final Result [facility] Department [place] [address] * Infection Prevention VRE Culture Stool (10/14/2024 10:50 AM [employer]) Report Final Report: Negative Stool 10/14/2024 10:5 0 AM [employer] 10/14/2024 2:37 PM [employer] Narrative [facility] - 10/16/2024 5:54 PM [employer] Surveillance culture for Infection Prevention purposes only; results indicate colonization, not infection requiring treatment. Testing performed by [facility] ([phone]). Randell Corona MD LAB MICROBIOLOGY - G ENERAL ORDERABLES Final [facility] [place] [address] * (ABNORMAL) Urine culture Urine, indwelling catheter (10/14/2024 9:06 AM [employer]) Report Final Report: Greater than or equal to 100,000 colonies/mL of Klebsiella pneumoniae Greater than or equal to 100,000 colonies/mL of Morganella morganii (.) Organism KLEBSIELLA PNEUMONIAE [facility] Organism MORGANELLA MORGANII [facility] Urine, indwelling catheter 10/14/2024 9:06 AM [employer] 10/14/2024 9:41 AM [employer] Narrative [facility] - 10/16/2024 2:01 PM [employer] Indications for Culture:->Other (specify) Other Indication:->Elevated WBC Testing performed by [facility] ([phone]) Organism Antibiotic Method Susceptibility Klebsiella pneumoniae Ampicillin [...] L ORDERABLES Final Result Performing Organization Address [facility] Co de Phone Number [facility] of [address] [place] [address] * Infection Prevention Chastity auris PCR, surveillance Axilla/Groin (10/14/2024 9:01 AM [employer]) Chastity auris DNA Not Detected Not Detected [facility] Comment: Interpretive Data Testing performed by [facility] using the Elaine nolan 6800 Chastity auris assay. This assay detects DNA from Chastity auris using Real-Time PCR. This assay is laboratory developed and is not cleared by the [place] Food and Drug Administration. The performance characteristics have been verified by the [facility]. Axilla/Groin 10/14/2024 9:01 AM [employer] 10/14/2024 9:13 AM [employer] Crow Valadez MD LAB MICROBIOLOGY - GENERAL ORDER SCOT Final Result Performing Organization Address City/[facility] Co de Phone Number CORRY [facility] Department of [address] [place] [address] [facility] * Blood culture Blood (10/14/2024 8:55 AM [employer]) Report Final Report: No growth Blood 10/14/2024 8:55 AM [employer] 10/14/2024 9:12 AM [employer] Narrative CORRY [facility] - 10/18/2024 12:00 PM CDT Collection->Peripheral 1. [...] performance characteristics have been verified by the [facility]. For questions about this culture, contact the Microbiology Laboratory at [phone]. Interpretive data was last revised on 24. Haley De Jesus NP LAB MICROBIOLOGY - GENERA L ORDERABLES Final Result CORRY CATALAN [facility] Department [place] [address] * eGFR (10/14/2024 12:12 AM [employer]) eGFR >90 >=60 mL/min/1. 73 m2 Comment: [...] Inclusion of Race in Diagnosing Kidney Disease, HENRYN 2020). The CKD-EPI equation should not be used for patients with unstable renal function and has not been validated in children and those over 70. Current interpretive data was last reviewed 2021. Blood 10/14/2024 12:1 2 AM [employer] 10/14/2024 1:31 AM [employer] [place] DUMONT LAB BLOOD ORDERABLE S Final Result Performing Organization Address City/[facility]/ZIP Co de Phone Number [facility] Department [place] [address] * (ABNORMAL) CBC with auto differential (10/14/2024 12:12 AM [employer]) WBC 20.7(H) 3.8 - 9.9 K/cumm Hgb 10.0(L) 11.9 - 15.5 g/dL [facility] Hct 29.5(L) 35.6 - 45.5 % [facility] Plt 227 150 - 400 K/cumm [facility] MPV 10.2 9.1 - 12.3 fL [facility] RBC 3.43(L) 3.90 - 5.20 M/cumm [facility] MCV 86.0 81.3 - 96.4 fL [facility] MCH 29.2 27.1 - 33.3 pg [facility] MCHC 33.9 32.3 - 35.7 g/dL [facility] RDW CV 15.3(H) 11.1 - 14.9 % [facility] RDW SD 48.1 35.7 - 48.1 fL [facility] NRBC abs 0.00 0.00 - 0.01 K/cumm [facility] Blood 10/14/2024 12:1 2 AM [employer] 10/14/2024 1:37 AM [employer] [place] DUMONT LAB BLOOD ORDERABLE S Final Result Performing Organization Address City/[facility]/ZIP Co de Phone Number [facility] Department [place] [address] * (ABNORMAL) Manual Differential (10/14/2024 12:12 AM [employer]) Pathologist [facility] Differential Manual Cells Counted 130 [facility] Neutrophil abs 17.2(H) 1.5 - 6.5 K/cumm [facility] Imm gran abs 1.9(H) 0.0 - 0.1 K/cumm [facility] Lymphocyte abs 0.8 0.8 - 3.3 K/cumm [facility] Monocyte abs 0.8 0.2 - 0.8 K/cumm [facility] Neutrophil pct 83.1 % [facility] Comment: Interpretive Data Percent cell count reference ranges are not reported, since discordance with absolute values may lead to misinterpretation of CBC data. Current Interpretive Data was last revised on 2017. Lymphocyte pct 3.8 % [facility] Comment: Interpretive Data Percent cell count reference ranges are not reported, since discordance with absolute values may lead to misinterpretation of CBC data. Current Interpretive Data was last revised on 2017. Monocyte pct 3.8 % [facility] Comment: Interpretive Data Percent cell count reference ranges are not reported, since discordance with absolute values may lead to misinterpretation of CBC data. Current Interpretive Data was last revised on 2017. Metamyelocyte pct 8.5(H) 0.0 - 0.0 % [facility] Promyelocyte pct 0.8(H) 0.0 - 0.0 % [facility] Blood 10/14/2024 12:1 2 AM [employer] 10/14/2024 1:40 AM [employer] us [place] DUMONT LAB BLOOD ORDERABLE S Final Result [facility] Department [place] [address] * (ABNORMAL) Phosphorus (10/14/2024 12:12 AM [employer]) Pathologist [facility] Phosphorus, pl 2.0(L) 2.3 - 4.5 mg/dL Blood 10/14/2024 12:1 2 AM [employer] 10/14/2024 1:31 AM [employer] [place] DUM[place] LAB BLOOD ORDERABLE S Final Result Performing Organization Address City/[facility] Co de Phone Number [facility] [place] [address] * Magnesium (10/14/2024 12:12 AM [employer]) [facility] Magnesium 1.8 1.4 - 2.5 mg/dL Blood 10/14/2024 12:1 2 AM [employer] 10/14/2024 1:31 AM [employer] [place] DUMONT LAB BLOOD ORDERABLE S Final Result Performing Organization Address [facility] de Phone Number [facility] [place] [address] * (ABNORMAL) Basic metabolic panel (10/14/2024 12:12 AM [employer]) [facility] Sodium 127(L) 135 - 145 mmol/L Potassium, pl 3.5 3.3 - 4.9 mmol/L [facility] Chloride 85(L) 97 - 110 mmol/L [facility] CO2 24 22 - 32 mmol/L [facility] Anion gap 18(H) 2 - 15 mmol/L [facility] BUN 12 6 - 25 mg/dL [facility] Creatinine 0.43(L) 0.60 - 1.10 mg/dL [facility] Glucose 81 70 - 199 mg/dL [facility] Comment: Interpretive Data Fasting glucose >/= 126 [...] Calcium 7.2(L) 8.5 - 10.3 mg/dL CORRY [facility] Blood 10/14/2024 12:1 2 AM [employer] 10/14/2024 1:31 AM [employer] us [place] DUM[place] LAB BLOOD ORDERABLE S Final Result [facility] Department [place] [address] * (ABNORMAL) Pro B-type natriuretic peptide (10/13/2024 4:50 PM [employer]) NT-proBNP 4,717(H) <=450 pg/mL Comment: Interpretive Comments: [...] et.al. Eur Heart J. 2006:27:330-337. 2. Denise RW, Kacie LOPEZ. J. AM Emani Cardiol: Cardiovasc Imag. 2009;2: 216- 225. Interpretive Data Last Revised Date: 2018. Blood 10/13/2024 4:50 PM [employer] 10/13/2024 5:15 PM [employer] Arlet Tiffany Moulton DIGITAL ASSOCIATE MEDIA DIRECTOR LAB BLOOD ORDERABLES Fi nal Result Performing Organization Address [facility] de Phone Number [facility] [address] [place] [address] * Sodium, urine, random (10/13/2024 4:50 PM [employer]) Sodium, ur <20 mmol/L Comment: Interpretive Data No reference range established. Current interpretive data was last revised 2018. Urine 10/13/2024 4:50 PM [employer] 10/13/2024 5:03 PM [employer] Arlet Tiffany Moulton DIGITAL ASSOCIATE MEDIA DIRECTOR LAB URINE ORDERABLES Fi nal Result Performing Organization Address [facility] de Phone Number [facility] [address] [place] [address] * Osmolality, urine (10/13/2024 4:50 PM [employer]) Osmo, ur 567 mOsm/kg Urine 10/13/2024 4:50 PM [employer] 10/13/2024 5:03 PM [employer] Arlet Yanezole Moulton DIGITAL ASSOCIATE MEDIA DIRECTOR LAB URINE ORDERABLES Fi nal Result Performing Organization Address [facility] de Phone Number [facility] [address] [place] [address] * XR Chest 1 View (10/13/2024 3:26 PM [employer]) Anatomical Region Laterality Modality Body, Chest N/A Computed Radiogr aphy 10/13/2024 4:07 PM [employer] Impressions 10/13/2024 4:13 PM [employer] The current study is compared with the [...] Araceli Khoury M.D. Narrative 10/13/2024 4:13 PM [employer] EXAMINATION: CXR one view Procedure Note Araceli [...] US Guided Thoracentesis Right (10/13/2024 2:31 PM [employer]) Anatomical Region Laterality Modality Chest N/A Ultrasound 10/13/2024 3:25 PM [employer] Impressions 10/13/2024 3:39 PM [employer] 1. Successful ultrasound-guided diagnostic and therapeutic right thoracentesis. Dictated by: Willie Chavira M.D. The radiology attending physician has personally reviewed this study, and had reviewed and/or edited this written report and agrees with it. Electronically signed by: Beny Bedoya M.D. Narrative 10/13/2024 3:39 PM [employer] EXAMINATION: DIAGNOSTIC AND THERAPEUTIC THORACENTESIS HISTORY: 79F [...] administration with 13 mL of Lidocaine 1%. 5-Azerbaijani One Step needle was advanced into the [...] administration with 13 mL of Lidocaine 1%. 5-Azerbaijani One Step needle was advanced into the [...] Cell Differential, Body Fluid (10/13/2024 1:32 PM [employer]) Total cells diffed 100 cells Comment: Interpretive [...] % [facility] Fluid 10/13/2024 1:32 PM [employer] 10/13/2024 5:58 PM [employer] Moises Orellana NP LAB BODY FLUIDS AND STOOLS ORDERABLES Final Result [facility]ANGELA [facility] Department of Laboratories [place], [place] [id number] * (ABNORMAL) Cell count w/rflx diff, body fluid (10/13/2024 1:32 PM [employer]) Specimen type, fld Pleural Body site, fld Pleural fluid, right [facility] Color, fld Red [facility] Clarity, fld Cloudy(A) Clear [facility] Nucleated cells, fld 212 /cumm [facility] Comment: Interpretive Data Unless otherwise specified, the reference range and other method performance specifications have not been established for CSF/Body Fluid tests. The test results should be integrated into the clinical context for interpretation. Current interpretive data was last revised on 2019. RBC, fld 46,663 /cumm [facility] Fluid 10/13/2024 1:32 PM [employer] 10/13/2024 5:58 PM [employer] Moises Orellana DIGITAL ASSOCIATE MEDIA DIRECTOR LAB BODY FLUIDS AND STOOLS ORDERABLES Final Result Performing Organization Address [facility] Co de Phone Number [facility] [place] [address] * Aerobic and anaerobic culture and gram stain Pleural fluid Lung (10/13/2024 1:32 PM [employer]) Direct Specimen Exam Stain: Cytospin Gram stain shows: Moderate polymorphonuclear leukocytes seen. No organisms seen. Report Final Report: No growth [facility] Pleural fluid (Lung) 10/13/2024 1:32 PM [employer] 10/13/2024 6:45 PM [employer] Narrative [facility] - 10/19/2024 3:30 PM CDT Testing performed by [facility] ([phone]) Specimens submitted from normally sterile body sites [...] ENERAL ORDERABLES Final Result Performing Organization Address City/[facility]/ZIP Co de Phone Number [facility] of [address] [place] [address] * Protein, body fluid (10/13/2024 1:32 PM [employer]) Specimen type, fld Pleural Body site, fld Pleural fluid, right [facility] Protein, fld <2.0 g/dL [facility] Comment: Repeated and Verified The above specimen [...] last revised 2019. Fluid 10/13/2024 1:32 PM [employer] 10/13/2024 6:05 PM [employer] Moises Orellana NP LAB BODY FLUIDS AND STOOLS ORDERABLES Final Result CORRY [facility] Department [place] [address] * Lactate dehydrogenase, body fluid (10/13/2024 1:32 PM [employer]) Specimen type, fld Pleural Body site, fld Pleural fluid, right [facility] LD, fld 191 Units/L [facility] Comment: The above specimen type is not [...] last revised 2019. Fluid 10/13/2024 1:32 PM [employer] 10/13/2024 6:05 PM [employer] us Moises Orellana NP LAB BODY FLUIDS AND STOOLS ORDERABLES Final Result [facility] Department [place] [address] * Glucose, body fluid (10/13/2024 1:32 PM [employer]) Specimen type, fld Pleural Body site, fld Pleural fluid, right [facility] Glucose, fld 104 mg/dL [facility] Comment: The above specimen type is not [...] and Management. Arthur Clin J Med 2005;72:854-72. [employer] Test directory, Body Fluid Reference Intervals and/or Interpretative Information. [email or web address] Sean CURRIE et al. Pancreatic cyst fluid glucose: rapid, inexpensive, and accurate diagnosis of mucinous pancreatic cysts. Surgery 2018;163:600-5. Silvia REYEZ et al. Differential diagnosis of pancreatic cysts: A prospective study on the role of intra-cystic glucose concentration. Digestive Liver Dis 2020;52:1026-32. Current Interpretive Data was last revised 2021. Fluid 10/13/2024 1:32 PM [employer] 10/13/2024 6:05 PM [employer] Narrative [facility]RY [facility] - 10/13/2024 6:35 PM [employer] Body Fluid Type->Pleural Moises Orellana NP LAB BODY FLUIDS AND STOOLS ORDERABLES Final Result Performing Organization Address [facility] Co de Phone Number [facility] of [address] [place] [address] * pH, Pleural Fluid (10/13/2024 1:32 PM [employer]) Body site, fld Pleural fluid, right pH, fld See Comment [facility]RY [facility] Comment: Credited: Specimen too old Telephone report made to: Alta Enciso RN on 10/13/2024 20:47:04 [employer] by ors . The above specimen type is not [...] last revised 2019. Fluid 10/13/2024 1:32 PM [employer] 10/13/2024 8:13 PM [employer] Moises Orellana NP LAB BODY FLU IDS AND STOOLS ORDERABLES Edited Result - Final Performing Organization Address [facility] Co de Phone Number [facility] Department [place] [address] * TRANSTHORACIC ECHO (TTE) COMPLETE W DOPPLER/CF W CONTRAST (10/13/2024 10:53 AM [employer]) Anatomical Region Laterality Modality Ultrasound 10/13/2024 9:37 AM [employer] Narrative 10/13/2024 11:12 AM [employer] [facility] [place] [address] Transthoracic Echocardiographic Report Patient Name: SEAN ESTRELLA A : 1945 (79y 9m) Gender: F Study Date: 10/13/2024 09:37:06 AM Ht(Inch): 65 Wt(Lb): 136.91 BSA: 1.69 Hand Alterations Tailor: Candace Burton RD [facility] Location: [id number] Order Provider: MOISES ORELLANA Heart Rate: 76 BMI: 22.78 BP: 123 / 45 Quality: Technically difficult study due to limited acoustic windows. Ref Provider: MOISES ORELLANA PROCEDURES: Echocardiographic Report: ([id number]) Transthoracic complete echo with contrast, 2D, spectral [...] By: Jose Almaraz MD 10/13/2024 11:11:57 AM [employer] Electronically Signed By: Jose Almaraz MD 10/13/2024 11:11:57 AM [employer] Procedure Note Jose Almaraz MD - 10/13/2024 [facility] [place] [address] Transthoracic Echocardiographic Report Patient Name: SEAN ESTRELLA A : 1945 (79y 9m) Gender: F Study Date: 10/13/2024 09:37:06 AM Ht(Inch): 65 Wt(Lb): 136.91 BSA: 1.69 Hand Alterations Tailor: Candace Burton, [facility] Location: [id number] OrderProvider: MOISES ORELLANA Heart Rate: 76 BMI: 22.78 BP: 123 / 45 Quality: Technically difficultstudy due to limited acoustic windows. Ref Provider: MOISES ORELLANA PROCEDURES: Echocardiographic Report: ([id number]) Transthoracic complete echo withcontrast, 2D, spectral and [...] [ 2.5 - 4.2 ] MV Decel Mizv005.68 msec [ 104.00 - 258.00 ] TAPSE [...] By: Jose Almaraz MD 10/13/2024 11:11:57 AM [employer] Electronically Signed By: Jose Almaraz MD 10/13/2024 11:11:57 AM [employer] Moises Orellana NP CV ECHO PROCEDURES F inal Result * (ABNORMAL) Calcium, ionized, whole blood (10/13/2024 6:28 AM [employer]) Pathologist [facility] Ca, ionized, bld 3.96(L) 4.50 - 5.10 mg/dL Blood 10/13/2024 6:28 AM [employer] 10/13/2024 6:48 AM [employer] Arlet Peters DIGITAL ASSOCIATE MEDIA DIRECTOR LAB BLOOD ORDERABLES Fi nal Result Performing Organization Address [facility] Co de Phone Number [facility] [place] [address] * eGFR (10/13/2024 6:28 AM [employer]) [facility] eGFR >90 >=60 mL/min/1. 73 m2 Comment: [...] last reviewed 2021. Blood 10/13/2024 6:28 AM [employer] 10/13/2024 6:48 AM [employer] Arlet Peters DIGITAL ASSOCIATE MEDIA DIRECTOR LAB BLOOD ORDERABLES Fi nal Result Performing Organization Address City/[facility] Co de Phone Number [facility] Department [place] [address] * (ABNORMAL) Basic metabolic panel (10/13/2024 6:28 AM [employer]) [facility] Sodium 128(L) 135 - 145 mmol/L Potassium, pl 3.5 3.3 - 4.9 mmol/L [facility] Chloride 93(L) 97 - 110 mmol/L [facility] CO2 26 22 - 32 mmol/L [facility] Anion gap 9 2 - 15 mmol/L [facility] BUN 11 6 - 25 mg/dL [facility] Creatinine 0.47(L) 0.60 - 1.10 mg/dL [facility] Glucose 106 70 - 199 mg/dL [facility] Comment: Interpretive Data Fasting glucose >/= 126 [...] 2022. Calcium 7.2(L) 8.5 - 10.3 mg/dL [facility] Blood 10/13/2024 6:28 AM [employer] 10/13/2024 6:48 AM [employer] us Arlet Peters NP LAB BLOOD ORDERABLES nal Result [facility] Department [place] [address] * eGFR (10/12/2024 10:06 PM [employer]) [facility] eGFR >90 >=60 mL/min/1. 73 m2 Comment: [...] reviewed 2021. Blood 10/12/2024 10:0 6 PM [employer] 10/12/2024 10:45 PM [employer] us [place] DUMONT LAB BLOOD ORDERABLE S Final Result [facility] Department [place] [address] * (ABNORMAL) CBC with auto differential (10/12/2024 10:06 PM [employer]) WBC 23.3(H) 3.8 - 9.9 K/cumm Hgb 10.2(L) 11.9 - 15.5 g/dL [facility] Hct 30.0(L) 35.6 - 45.5 % [facility] Plt 236 150 - 400 K/cumm [facility] MPV 9.9 9.1 - 12.3 fL [facility] RBC 3.55(L) 3.90 - 5.20 M/cumm [facility] MCV 84.5 81.3 - 96.4 fL [facility] MCH 28.7 27.1 - 33.3 pg [facility] MCHC 34.0 32.3 - 35.7 g/dL [facility] RDW CV 15.4(H) 11.1 - 14.9 % [facility] RDW SD 46.4 35.7 - 48.1 fL [facility] NRBC abs 0.00 0.00 - 0.01 K/cumm [facility] Blood 10/12/2024 10:0 6 PM [employer] 10/12/2024 10:17 PM [employer] [place] DUMONT LAB BLOOD ORDERABLE S Final Result [facility] Department [place] [address] * (ABNORMAL) Manual Differential (10/12/2024 10:06 PM [employer]) Differential Manual Cells Counted [address] [facility] Neutrophil abs 19.8(H) 1.5 - 6.5 K/cumm [facility] Imm gran abs 2.1(H) 0.0 - 0.1 K/cumm [facility] Lymphocyte abs 0.2(L) 0.8 - 3.3 K/cumm [facility] Monocyte abs 1.2(H) 0.2 - 0.8 K/cumm [facility] Neutrophil pct 84.9 % [facility] Comment: Interpretive Data Percent cell count reference ranges are not reported, since discordance with absolute values may lead to misinterpretation of CBC data. Current Interpretive Data was last revised on 2017. Lymphocyte pct 0.8 % [facility] Comment: Interpretive Data Percent cell count reference ranges are not reported, since discordance with absolute values may lead to misinterpretation of CBC data. Current Interpretive Data was last revised on 2017. Monocyte pct 5.3 % [facility] Comment: Interpretive Data Percent cell count reference ranges are not reported, since discordance with absolute values may lead to misinterpretation of CBC data. Current Interpretive Data was last revised on 2017. Metamyelocyte pct 9.0(H) 0.0 - 0.0 % [facility] Blood 10/12/2024 10:0 6 PM [employer] 10/12/2024 10:39 PM [employer] [place] DUMONT LAB BLOOD ORDERABLE S Final Result [facility] Department [place] [address] * Phosphorus (10/12/2024 10:06 PM [employer]) [facility] Phosphorus, pl 3.3 2.3 - 4.5 mg/dL Blood 10/12/2024 10:0 6 PM [employer] 10/12/2024 10:17 PM [employer] [place] DUM[place] LAB BLOOD ORDERABLE S Final Result Performing Organization Address City/[facility]/ZIP Co de Phone Number [facility] Department [place] [address] * Magnesium (10/12/2024 10:06 PM [employer]) [facility] Magnesium 1.6 1.4 - 2.5 mg/dL Blood 10/12/2024 10:0 6 PM [employer] 10/12/2024 10:17 PM [employer] [place] LAB BLOOD ORDERABLE S Final Result Performing Organization Address [facility] de Phone Number [facility] Department [place] [address] * (ABNORMAL) Basic metabolic panel (10/12/2024 10:06 PM [employer]) [facility] Sodium 127(L) 135 - 145 mmol/L Potassium, pl 3.9 3.3 - 4.9 mmol/L [facility] Chloride 90(L) 97 - 110 mmol/L [facility] CO2 26 22 - 32 mmol/L [facility] Anion gap 11 2 - 15 mmol/L [facility] BUN 10 6 - 25 mg/dL [facility] Creatinine 0.51(L) 0.60 - 1.10 mg/dL [facility] Glucose 125 70 - 199 mg/dL [facility] Comment: Interpretive Data Fasting glucose >/= 126 [...] 8.5 - 10.3 mg/dL [facility] Blood 10/12/2024 10:0 6 PM [employer] 10/12/2024 10:17 PM [employer] us [place] DUM[place] LAB BLOOD ORDERABLE S Final Result [facility] Department [place] [address] * (ABNORMAL) Pro B-type natriuretic peptide (10/12/2024 12:34 PM [employer]) NT-proBNP 8,720(H) <=450 pg/mL Comment: Interpretive Comments: [...] et.al. Eur Heart J. 2006:27:330-337. 2. Denise RW, Kacie AM. J. AM Emani Cardiol: Cardiovasc Imag. 2009;2: 216- 225. Interpretive Data Last Revised Date: 2018. Blood 10/12/2024 12:3 4 PM [employer] 10/12/2024 12:57 PM [employer] Moises Orellana [employer]OCIATE MEDIA DIRECTOR LAB BLOOD ORDERABLES Final Result [facility] Department [place] [address] * Respiratory pathogen panel Nasopharyngeal (10/12/2024 12:34 PM [employer]) Influenza A RNA Equivocal Not Detected Comment:Equivocal results ma y be due to a low level of a target or the presence of inhibitory substances. Recommend submission of a second separately collected specimen if clinically indicated. Influenza B RNA Not Detected Not Detected [facility] RSV RNA Not Detected Not Detected [facility] COVID-19 RNA Not Detected Not Detected [facility] Coronavirus 229E RNA Not Detected Not Detected [facility] Coronavirus HKU1 RNA Not Detected Not Detected [facility] Coronavirus NL63 RNA Not Detected Not Detected [facility] Coronavirus OC43 RNA Not Detected Not Detected [facility] Adenovirus DNA Not Detected Not Detected [facility] Metapneumovirus RNA Not Detected Not Detected [facility] Rhinovirus/Enterov irus RNA Not Detected Not Detected [facility] Parainfluenza 1 RNA Not Detected Not Detected [facility] Parainfluenza 2 RNA Not Detected Not Detected [facility] Parainfluenza 3 RNA Not Detected Not Detected [facility] Parainfluenza 4 RNA Not Detected Not Detected [facility] B. pertussis DNA Not Detected Not Detected [facility] B. parapertussis DNA Not Detected Not Detected [facility] C. pneumoniae DNA Not Detected Not Detected [facility] M. pneumoniae DNA Not Detected Not Detected [facility] Nasopharyngeal 10/12/2024 12 :34 PM [employer] 10/12/2024 12:48 PM [employer] [facility] - 10/12/2024 3:27 PM [employer] Is the Patient experiencing symptoms consistent with COVID?->Unknown Surveillance testing for transplant patient?->No Interpretive Data The BIScience FilmArray Respiratory Panel (RP2.1) assay is a [...] assay has FDA clearance for testing of DIGITAL ASSOCIATE MEDIA DIRECTOR swabs. The performance of additional specimen types has been assessed by the performing laboratory. The performance characteristics of this assay have been determined by [facility] Molecular Infectious Disease Laboratory. Current interpretive data was last revised on 22. Moises Orellana NP LAB MICROBIOLOGY - G ENERAL ORDERABLES Final Result Performing Organization Address [facility] de Phone Number [facility] Department [place] [address] * (ABNORMAL) Protime-INR (10/12/2024 12:34 PM [employer]) PT 13.6(H) 9.7 - 13.0 sec INR 1.25(H) 0.90 - 1.20 [facility] Comment: Interpretive data Oral anticoagulant therapeutic ranges: Venous thromboembolism prophylaxis or treatment: 2.0-3.0 CARDIOLOGY Standard range: 2.0-3.0 High-intensity range: 2.5-3.5 Refer to indication-specific guidelines for appropriate target ranges for prosthetic heart valve replacement. Current interpretive data was last revised on 2019. Blood 10/12/2024 12:3 4 PM [employer] 10/12/2024 12:51 PM [employer] Moises Orellana NP LAB BLOOD ORDERABLES Final Result Performing Organization Address [facility] de Phone Number [facility] Department [place] [address] * XR Chest 1 View (10/12/2024 7:54 AM [employer]) Anatomical Region Laterality Modality Body, Chest N/A Computed Radiogr aphy 10/12/2024 9:28 AM [employer] Impressions 10/12/2024 9:34 AM [employer] Interval extubation. Spinal fixation instruments and drains [...] Araceli Khoury M.D. Narrative 10/12/2024 9:34 AM [employer] EXAMINATION: XR CHEST 1 VIEW HISTORY: dyspnea [...] Electronically signed by: Araceli Khoury M.D. Moises Taborelle Harlan MANCINI IMG XR PROCEDURES Fi nal Result * eGFR (10/11/2024 10:25 PM [employer]) eGFR >90 >=60 mL/min/1. 73 m2 Comment: [...] reviewed 2021. Blood 10/11/2024 10:2 5 PM [employer] 10/11/2024 10:52 PM [employer] [place] DUM[place] LAB BLOOD ORDERABLE S Final Result [facility] Department [place] [address] * Differential, auto (10/11/2024 10:25 PM [employer]) Neutrophil abs 4.7 1.5 - 6.5 K/cumm Imm gran abs 0.1 0.0 - 0.1 K/cumm [facility] Lymphocyte abs 0.8 0.8 - 3.3 K/cumm [facility] Monocyte abs 0.5 0.2 - 0.8 K/cumm [facility] Eosinophil abs 0.1 0.0 - 0.5 K/cumm [facility] Basophil abs 0.0 0.0 - 0.1 K/cumm [facility] Neutrophil pct 74.9 % [facility] Comment: Interpretive Data Percent cell count reference ranges are not reported, since discordance with absolute values may lead to misinterpretation of CBC data. Current Interpretive Data was last revised on 2017. Imm gran pct 1.9 % [facility] Comment: Interpretive Data Percent cell count reference ranges are not reported, since discordance with absolute values may lead to misinterpretation of CBC data. Current Interpretive Data was last revised on 2017. Lymphocyte pct 13.4 % [facility] Comment: Interpretive Data Percent cell count reference ranges are not reported, since discordance with absolute values may lead to misinterpretation of CBC data. Current Interpretive Data was last revised on 2017. Monocyte pct 7.9 % [facility] Comment: Interpretive Data Percent cell count reference ranges are not reported, since discordance with absolute values may lead to misinterpretation of CBC data. Current Interpretive Data was last revised on 2017. Eosinophil pct 1.6 % [facility] Comment: Interpretive Data Percent cell count reference ranges are not reported, since discordance with absolute values may lead to misinterpretation of CBC data. Current Interpretive Data was last revised on 2017. Basophil pct 0.3 % [facility] Comment: Interpretive Data Percent cell count reference ranges are not reported, since discordance with absolute values may lead to misinterpretation of CBC data. Current Interpretive Data was last revised on 2017. Blood 10/11/2024 10:2 5 PM [employer] 10/11/2024 10:53 PM [employer] us [place] DUM[place] LAB BLOOD ORDERABLE S Final Result [facility] Department [place] [address] * (ABNORMAL) CBC with auto differential (10/11/2024 10:25 PM [employer]) WBC 6.2 3.8 - 9.9 K/cumm Hgb 11.9 11.9 - 15.5 g/dL [facility] Hct 34.5(L) 35.6 - 45.5 % [facility] Plt 220 150 - 400 K/cumm [facility] MPV 9.9 9.1 - 12.3 fL [facility] RBC 4.11 3.90 - 5.20 M/cumm [facility] MCV 83.9 81.3 - 96.4 fL [facility] MCH 29.0 27.1 - 33.3 pg [facility] MCHC 34.5 32.3 - 35.7 g/dL [facility] RDW CV 14.8 11.1 - 14.9 % [facility] RDW SD 45.1 35.7 - 48.1 fL [facility] NRBC abs 0.02(H) 0.00 - 0.01 K/cumm [facility] Blood 10/11/2024 10:2 5 PM [employer] 10/11/2024 10:53 PM [employer] [place] DUM[place] LAB BLOOD ORDERABLE S Final Result Performing Organization Address City/[facility] Co de Phone Number [facility] [place] [address] * Type and screen (10/11/2024 10:25 PM [employer]) ABO Rh A Positive [place], indirect Negative [facility] Blood 10/11/2024 10:2 5 PM [employer] 10/11/2024 10:51 PM [employer] Narrative [facility] - 10/11/2024 11:44 PM [employer] Has the patient had Daratumumab or Isatuximab in the past 6 months?->Unknown [place] DUM[place] LAB BLOOD BANK TEST ORDERABLES Final Result Performing Organization Address City/[facility] Co de Phone Number [facility] [place] [address] * Phosphorus (10/11/2024 10:25 PM [employer]) Phosphorus, pl 2.3 2.3 - 4.5 mg/dL Blood 10/11/2024 10:2 5 PM [employer] 10/11/2024 10:52 PM [employer] [place]UM[place] LAB BLOOD ORDERABLE S Final Result Performing Organization Address City/[facility] Co de Phone Number [facility] [place] [address] * Magnesium (10/11/2024 10:25 PM [employer]) Magnesium 1.8 1.4 - 2.5 mg/dL Blood 10/11/2024 10:2 5 PM [employer] 10/11/2024 10:52 PM [employer] [place] DUM[place] LAB BLOOD ORDERABLE S Final Result [facility] Department [place] [address] * (ABNORMAL) Basic metabolic panel (10/11/2024 10:25 PM [employer]) [facility] Sodium 128(L) 135 - 145 mmol/L Potassium, pl 3.7 3.3 - 4.9 mmol/L [facility] Chloride 93(L) 97 - 110 mmol/L [facility] CO2 26 22 - 32 mmol/L [facility] Anion gap 9 2 - 15 mmol/L [facility] BUN 8 6 - 25 mg/dL [facility] Creatinine 0.37(L) 0.60 - 1.10 mg/dL [facility] Glucose 113 70 - 199 mg/dL [facility] Comment: Interpretive Data Fasting glucose >/= 126 [...] 2022. Calcium 7.8(L) 8.5 - 10.3 mg/dL [facility] Blood 10/11/2024 10:2 5 PM [employer] 10/11/2024 10:52 PM [employer] [place] DUM[place] LAB BLOOD ORDERABLE S Final Result Performing Organization Address City/[facility]/ZIP Co de Phone Number [facility] Department [place] [address] * eGFR (10/10/2024 10:42 PM [employer]) [facility] eGFR >90 >=60 mL/min/1. 73 m2 Comment: [...] reviewed 2021. Blood 10/10/2024 10:4 2 PM [employer] 10/10/2024 11:38 PM [employer] us [place] DUM[place] LAB BLOOD ORDERABLE S Final Result [facility] Department [place] [address] * Differential, auto (10/10/2024 10:42 PM [employer]) [facility] Neutrophil abs 4.0 1.5 - 6.5 K/cumm Imm gran abs 0.1 0.0 - 0.1 K/cumm [facility] Lymphocyte abs 0.9 0.8 - 3.3 K/cumm [facility] Monocyte abs 0.6 0.2 - 0.8 K/cumm [facility] Eosinophil abs 0.1 0.0 - 0.5 K/cumm [facility] Basophil abs 0.0 0.0 - 0.1 K/cumm [facility] Neutrophil pct 70.3 % [facility] Comment: Interpretive Data Percent cell count reference ranges are not reported, since discordance with absolute values may lead to misinterpretation of CBC data. Current Interpretive Data was last revised on 2017. Imm gran pct 1.6 % [facility] Comment: Interpretive Data Percent cell count reference ranges are not reported, since discordance with absolute values may lead to misinterpretation of CBC data. Current Interpretive Data was last revised on 2017. Lymphocyte pct 15.3 % [facility] Comment: Interpretive Data Percent cell count reference ranges are not reported, since discordance with absolute values may lead to misinterpretation of CBC data. Current Interpretive Data was last revised on 2017. Monocyte pct 9.8 % [facility] Comment: Interpretive Data Percent cell count reference ranges are not reported, since discordance with absolute values may lead to misinterpretation of CBC data. Current Interpretive Data was last revised on 2017. Eosinophil pct 2.5 % [facility] Comment: Interpretive Data Percent cell count reference ranges are not reported, since discordance with absolute values may lead to misinterpretation of CBC data. Current Interpretive Data was last revised on 2017. Basophil pct 0.5 % [facility] Comment: Interpretive Data Percent cell count reference ranges are not reported, since discordance with absolute values may lead to misinterpretation of CBC data. Current Interpretive Data was last revised on 2017. Blood 10/10/2024 10:4 2 PM [employer] 10/10/2024 11:39 PM [employer] us [place] LAB BLOOD ORDERABLE S Final Result [facility] Department [place] [address] * (ABNORMAL) CBC with auto differential (10/10/2024 10:42 PM [employer]) WBC 5.7 3.8 - 9.9 K/cumm Hgb 11.0(L) 11.9 - 15.5 g/dL [facility] Hct 32.2(L) 35.6 - 45.5 % [facility] Plt 180 150 - 400 K/cumm [facility] MPV 9.8 9.1 - 12.3 fL [facility] RBC 3.75(L) 3.90 - 5.20 M/cumm [facility] MCV 85.9 81.3 - 96.4 fL [facility] MCH 29.3 27.1 - 33.3 pg [facility] MCHC 34.2 32.3 - 35.7 g/dL [facility] RDW CV 15.3(H) 11.1 - 14.9 % [facility] RDW SD 47.2 35.7 - 48.1 fL [facility] NRBC abs 0.00 0.00 - 0.01 K/cumm [facility] Blood 10/10/2024 10:4 2 PM [employer] 10/10/2024 11:39 PM [employer] [place] DUM[place] LAB BLOOD ORDERABLE S Final Result Performing Organization Address City/[facility]/ZIP Co de Phone Number [facility] Department [place] [address] * Phosphorus (10/10/2024 10:42 PM [employer]) Phosphorus, pl 2.5 2.3 - 4.5 mg/dL Blood 10/10/2024 10:4 2 PM [employer] 10/10/2024 11:38 PM [employer] [place]UM[place] LAB BLOOD ORDERABLE S Final Result [facility] [place] [address] * Magnesium (10/10/2024 10:42 PM [employer]) Magnesium 2.0 1.4 - 2.5 mg/dL Blood 10/10/2024 10:4 2 PM [employer] 10/10/2024 11:38 PM [employer] [place]UM[place] LAB BLOOD ORDERABLE S Final Result [facility] Department [place] [address] * (ABNORMAL) Basic metabolic panel (10/10/2024 10:42 PM [employer]) Sodium 133(L) 135 - 145 mmol/L Potassium, pl 4.0 3.3 - 4.9 mmol/L [facility] Chloride 98 97 - 110 mmol/L [facility] CO2 27 22 - 32 mmol/L [facility] Anion gap 8 2 - 15 mmol/L [facility] BUN 10 6 - 25 mg/dL [facility] Creatinine 0.36(L) 0.60 - 1.10 mg/dL [facility] Glucose 113 70 - 199 mg/dL [facility] Comment: Interpretive Data Fasting glucose >/= 126 [...] 2022. Calcium 7.8(L) 8.5 - 10.3 mg/dL [facility] Blood 10/10/2024 10:4 2 PM [employer] 10/10/2024 11:38 PM [employer] us [place]UM[place] LAB BLOOD ORDERABLE S Final Result Performing Organization Address City/[facility]/ZIP Co de Phone Number [facility] Department [place] [address] * eGFR (10/09/2024 10:03 PM [employer]) eGFR >90 >=60 mL/min/1. 73 m2 Comment: [...] reviewed 2021. Blood 10/09/2024 10:0 3 PM [employer] 10/09/2024 10:44 PM [employer] [place] DUM[place] LAB BLOOD ORDERABLE S Final Result [facility] Department [place] [address] * Differential, auto (10/09/2024 10:03 PM [employer]) Pathologist [facility] Neutrophil abs 5.9 1.5 - 6.5 K/cumm Imm gran abs 0.0 0.0 - 0.1 K/cumm [facility] Lymphocyte abs 0.8 0.8 - 3.3 K/cumm [facility] Monocyte abs 0.6 0.2 - 0.8 K/cumm [facility] Eosinophil abs 0.2 0.0 - 0.5 K/cumm [facility] Basophil abs 0.0 0.0 - 0.1 K/cumm [facility] Neutrophil pct 78.4 % [facility] Comment: Interpretive Data Percent cell count reference ranges are not reported, since discordance with absolute values may lead to misinterpretation of CBC data. Current Interpretive Data was last revised on 2017. Imm gran pct 0.5 % [facility] Comment: Interpretive Data Percent cell count reference ranges are not reported, since discordance with absolute values may lead to misinterpretation of CBC data. Current Interpretive Data was last revised on 2017. Lymphocyte pct 10.8 % [facility] Comment: Interpretive Data Percent cell count reference ranges are not reported, since discordance with absolute values may lead to misinterpretation of CBC data. Current Interpretive Data was last revised on 2017. Monocyte pct 7.9 % [facility] Comment: Interpretive Data Percent cell count reference ranges are not reported, since discordance with absolute values may lead to misinterpretation of CBC data. Current Interpretive Data was last revised on 2017. Eosinophil pct 2.1 % [facility] Comment: Interpretive Data Percent cell count reference ranges are not reported, since discordance with absolute values may lead to misinterpretation of CBC data. Current Interpretive Data was last revised on 2017. Basophil pct 0.3 % [facility] Comment: Interpretive Data Percent cell count reference ranges are not reported, since discordance with absolute values may lead to misinterpretation of CBC data. Current Interpretive Data was last revised on 2017. Blood 10/09/2024 10:0 3 PM [employer] 10/09/2024 10:44 PM [employer] [place] DUM[place] LAB BLOOD ORDERABLE S Final Result [facility] Department [place] [address] * (ABNORMAL) CBC with auto differential (10/09/2024 10:03 PM [employer]) WBC 7.6 3.8 - 9.9 K/cumm Hgb 11.0(L) 11.9 - 15.5 g/dL [facility] Hct 33.7(L) 35.6 - 45.5 % [facility] Plt 153 150 - 400 K/cumm [facility] MPV 10.3 9.1 - 12.3 fL [facility] RBC 3.91 3.90 - 5.20 M/cumm [facility] MCV 86.2 81.3 - 96.4 fL [facility] MCH 28.1 27.1 - 33.3 pg [facility] MCHC 32.6 32.3 - 35.7 g/dL [facility] RDW CV 15.5(H) 11.1 - 14.9 % [facility] RDW SD 48.9(H) 35.7 - 48.1 fL [facility] NRBC abs 0.00 0.00 - 0.01 K/cumm [facility] Blood 10/09/2024 10:0 3 PM [employer] 10/09/2024 10:44 PM [employer] [place] DUMONT LAB BLOOD ORDERABLE S Final Result Performing Organization Address [facility] de Phone Number [facility] Department [place] [address] * (ABNORMAL) Phosphorus (10/09/2024 10:03 PM [employer]) Phosphorus, pl 2.2(L) 2.3 - 4.5 mg/dL Blood 10/09/2024 10:0 3 PM [employer] 10/09/2024 10:44 PM [employer] [place] D[place] LAB BLOOD ORDERABLE S Final Result Performing Organization Address [facility] de Phone Number [facility] Department [place] [address] * Magnesium (10/09/2024 10:03 PM [employer]) Magnesium 2.2 1.4 - 2.5 mg/dL Blood 10/09/2024 10:0 3 PM [employer] 10/09/2024 10:44 PM [employer] [place] LAB BLOOD ORDERABLE S Final Result Performing Organization Address [facility] de Phone Number [facility] Department [place] [address] * (ABNORMAL) Basic metabolic panel (10/09/2024 10:03 PM [employer]) [facility] Sodium 136 135 - 145 mmol/L Potassium, pl 3.9 3.3 - 4.9 mmol/L [facility] Chloride 99 97 - 110 mmol/L [facility] CO2 30 22 - 32 mmol/L [facility] Anion gap 7 2 - 15 mmol/L [facility] BUN 10 6 - 25 mg/dL [facility] Creatinine 0.44(L) 0.60 - 1.10 mg/dL [facility] Glucose 121 70 - 199 mg/dL [facility] Comment: Interpretive Data Fasting glucose >/= 126 [...] 2022. Calcium 8.0(L) 8.5 - 10.3 mg/dL [facility] Blood 10/09/2024 10:0 3 PM [employer] 10/09/2024 10:44 PM [employer] us [place] LAB BLOOD ORDERABLE S Final Result [facility] Department [place] [address] * eGFR (10/09/2024 1:04 AM [employer]) [facility] eGFR >90 >=60 mL/min/1. 73 m2 Comment: [...] last reviewed 2021. Blood 10/09/2024 1:04 AM [employer] 10/09/2024 1:33 AM [employer] [place] LAB BLOOD ORDERABLE S Final Result [facility] Department [place] [address] * (ABNORMAL) Differential, auto (10/09/2024 1:04 AM [employer]) Neutrophil abs 7.7(H) 1.5 - 6.5 K/cumm Imm gran abs 0.0 0.0 - 0.1 K/cumm [facility] Lymphocyte abs 0.9 0.8 - 3.3 K/cumm [facility] Monocyte abs 0.7 0.2 - 0.8 K/cumm [facility] Eosinophil abs 0.1 0.0 - 0.5 K/cumm [facility] Basophil abs 0.0 0.0 - 0.1 K/cumm [facility] Neutrophil pct 81.8 % [facility] Comment: Interpretive Data Percent cell count reference ranges are not reported, since discordance with absolute values may lead to misinterpretation of CBC data. Current Interpretive Data was last revised on 2017. Imm gran pct 0.3 % [facility] Comment: Interpretive Data Percent cell count reference ranges are not reported, since discordance with absolute values may lead to misinterpretation of CBC data. Current Interpretive Data was last revised on 2017. Lymphocyte pct 9.4 % [facility] Comment: Interpretive Data Percent cell count reference ranges are not reported, since discordance with absolute values may lead to misinterpretation of CBC data. Current Interpretive Data was last revised on 2017. Monocyte pct 7.6 % [facility] Comment: Interpretive Data Percent cell count reference ranges are not reported, since discordance with absolute values may lead to misinterpretation of CBC data. Current Interpretive Data was last revised on 2017. Eosinophil pct 0.6 % [facility] Comment: Interpretive Data Percent cell count reference ranges are not reported, since discordance with absolute values may lead to misinterpretation of CBC data. Current Interpretive Data was last revised on 2017. Basophil pct 0.3 % [facility] Comment: Interpretive Data Percent cell count reference ranges are not reported, since discordance with absolute values may lead to misinterpretation of CBC data. Current Interpretive Data was last revised on 2017. Blood 10/09/2024 1:04 AM [employer] 10/09/2024 1:33 AM [employer] us [place] LAB BLOOD ORDERABLE S Final Result [facility] Department [place] [address] * (ABNORMAL) CBC with auto differential (10/09/2024 1:04 AM [employer]) WBC 9.4 3.8 - 9.9 K/cumm Hgb 10.4(L) 11.9 - 15.5 g/dL [facility] Hct 30.8(L) 35.6 - 45.5 % [facility] Plt 119(L) 150 - 400 K/cumm [facility] MPV 10.6 9.1 - 12.3 fL [facility] RBC 3.62(L) 3.90 - 5.20 M/cumm [facility] MCV 85.1 81.3 - 96.4 fL [facility] MCH 28.7 27.1 - 33.3 pg [facility] MCHC 33.8 32.3 - 35.7 g/dL [facility] RDW CV 15.7(H) 11.1 - 14.9 % [facility] RDW SD 48.7(H) 35.7 - 48.1 fL [facility] NRBC abs 0.00 0.00 - 0.01 K/cumm [facility] Blood 10/09/2024 1:04 AM [employer] 10/09/2024 1:33 AM [employer] [place] LAB BLOOD ORDERABLE S Final Result [facility] Department [place] [address] * Type and screen (10/09/2024 1:04 AM [employer]) ABO Rh A Positive [place], indirect Negative [facility] Blood 10/09/2024 1:04 AM [employer] 10/09/2024 1:44 AM [employer] Narrative [facility] - 10/09/2024 2:32 AM [employer] Has the patient had Daratumumab or Isatuximab in the past 6 months?->Unknown [place] LAB BLOOD BANK TEST ORDERABLES Final Result [facility] Department [place] [address] * (ABNORMAL) Phosphorus (10/09/2024 1:04 AM [employer]) Phosphorus, pl 1.6(L) 2.3 - 4.5 mg/dL Blood 10/09/2024 1:04 AM [employer] 10/09/2024 1:33 AM [employer] [place] Prabha Jeffery PA LAB BLOOD ORDERABLE S Final Result [facility] Department [place] [address] * Magnesium (10/09/2024 1:04 AM [employer]) Pathologist [facility] Magnesium 2.0 1.4 - 2.5 mg/dL Blood 10/09/2024 1:04 AM [employer] 10/09/2024 1:33 AM [employer] [place] LAB BLOOD ORDERABLE S Final Result Performing Organization Address [facility] Co de Phone Number [facility] Department [place] [address] * (ABNORMAL) Basic metabolic panel (10/09/2024 1:04 AM [employer]) [facility] Sodium 136 135 - 145 mmol/L Potassium, pl 4.0 3.3 - 4.9 mmol/L [facility] Chloride 101 97 - 110 mmol/L [facility] CO2 28 22 - 32 mmol/L [facility] Anion gap 7 2 - 15 mmol/L [facility] BUN 10 6 - 25 mg/dL [facility] Creatinine 0.41(L) 0.60 - 1.10 mg/dL [facility] Glucose 107 70 - 199 mg/dL [facility] Comment: Interpretive Data Fasting glucose >/= 126 [...] 2022. Calcium 7.8(L) 8.5 - 10.3 mg/dL [facility] Blood 10/09/2024 1:04 AM [employer] 10/09/2024 1:33 AM [employer] us [place] LAB BLOOD ORDERABLE S Final Result Performing Organization Address [facility] Co de Phone Number [facility] [place] [address] * POCT glucose (10/08/2024 3:07 PM [employer]) Glucose, POC 124 70 - 199 mg/dL Blood 10/08/2024 3:07 PM [employer] 10/08/2024 3:07 PM [employer] us Randell Corona MD LAB POCT ORDERABLES - DEVICE Final Result Performing Organization Address [facility] de Phone Number [facility] [place] [address] * POCT glucose (10/08/2024 10:52 AM [employer]) Glucose, POC 124 70 - 199 mg/dL Blood 10/08/2024 10:5 2 AM [employer] 10/08/2024 10:52 AM [employer] us Randell Corona MD LAB POCT ORDERABLES - DEVICE Final Result Performing Organization Address [facility] de Phone Number [facility] [place] [address] * POCT glucose (10/08/2024 7:04 AM [employer]) Glucose, POC 118 70 - 199 mg/dL Blood 10/08/2024 7:04 AM [employer] 10/08/2024 7:04 AM [employer] us Randell Corona MD LAB POCT ORDERABLES - DEVICE Final Result Performing Organization Address [facility] Co de Phone Number [facility] Department [place] [address] * Critical Care (10/08/2024 6:32 AM [employer]) Narrative Ivon Alvares MD - 10/08/2024 6:32 AM [employer] Ivon Alvares MD 10/08/2024 6:04 PM Critical [...] plan with the ICU team and other medical/retail sales vitamin consultant staff, making frequent assessments and decisions [...] Result * POCT glucose (10/08/2024 3:17 AM [employer]) Glucose, POC 112 70 - 199 mg/dL Blood 10/08/2024 3:17 AM [employer] 10/08/2024 3:17 AM [employer] us Randell Corona MD LAB POCT ORDERABLES - DEVICE Final Result [facility] Department [place] [address] * (ABNORMAL) CBC without differential (10/08/2024 1:40 AM [employer]) Pathologist [facility] WBC 9.3 3.8 - 9.9 K/cumm Hgb 10.1(L) 11.9 - 15.5 g/dL [facility] Hct 29.5(L) 35.6 - 45.5 % [facility] Plt 87(L) 150 - 400 K/cumm [facility] MPV 10.8 9.1 - 12.3 fL [facility] RBC 3.43(L) 3.90 - 5.20 M/cumm [facility] MCV 86.0 81.3 - 96.4 fL [facility] MCH 29.4 27.1 - 33.3 pg [facility] MCHC 34.2 32.3 - 35.7 g/dL [facility] RDW CV 15.2(H) 11.1 - 14.9 % [facility] RDW SD 47.6 35.7 - 48.1 fL [facility] NRBC abs 0.00 0.00 - 0.01 K/cumm [facility] Blood 10/08/2024 1:40 AM [employer] 10/08/2024 2:11 AM [employer] Sakshi Pena NP LAB BLOOD ORDER SCOT Final Result Performing Organization Address City/[facility] Co de Phone Number [facility] Department [place] [address] [place] [address] * Transfuse RBC (10/08/2024 12:40 AM [employer]) Blood Sakshi Pena NP BLOOD TRANSFUSI ON ORDERABLES Final Result [facility] Department [place] [address] [address] * Lidocaine level (10/07/2024 11:07 PM [employer]) Pathologist [facility] Lidocaine (Xylocaine) 2.3 1.5 - 5.0 mcg/mL Blood 10/07/2024 11:0 7 PM [employer] 10/08/2024 12:46 AM [employer] Narrative [facility] - 10/08/2024 1:15 AM [employer] Draw 24 hours after infusion started. us [place] LAB BLOOD ORDERABLE S Final Result Performing Organization Address [facility] de Phone Number [facility] Department [place] [address] * POCT glucose (10/07/2024 11:01 PM [employer]) Pathologist [facility] Glucose, POC 130 70 - 199 mg/dL Blood 10/07/2024 11:0 1 PM [employer] 10/07/2024 11:01 PM [employer] Randell Corona MD LAB POCT ORDERABLES - DEVICE Final Result Performing Organization Address [facility] de Phone Number [facility] Department [place] [address] * Prepare RBC: 1 Units (10/07/2024 10:28 PM [employer]) [facility] Product code [id number] Unit Number [id number] [facility] Product Blood Type APOS [facility] Dispense Status PRESUMED TRANSFUSED [facility] Blood 10/07/2024 10:2 8 PM [employer] 10/07/2024 10:28 PM [employer] Narrative [facility] - 10/08/2024 4:01 PM [employer] Are special requirements needed? (All products are leukoreduced and CMV- safe)- >No Date required:-[id number] LRRBC # of [id number] Reasons:-Hemorrhagic shock/Life-threatening bleeding} Sakshi Pena DIGITAL ASSOCIATE MEDIA DIRECTOR BLOOD BANK PROD UCT ORDERABLES Final Result Performing Organization Address [facility] Co de Phone Number [facility] Department [place] [address] * (ABNORMAL) CBC without differential (10/07/2024 9:52 PM [employer]) WBC 8.2 3.8 - 9.9 K/cumm Hgb 8.7(L) 11.9 - 15.5 g/dL [facility] Hct 26.0(L) 35.6 - 45.5 % [facility] Plt 86(L) 150 - 400 K/cumm [facility] MPV 10.8 9.1 - 12.3 fL [facility] RBC 3.01(L) 3.90 - 5.20 M/cumm [facility] MCV 86.4 81.3 - 96.4 fL [facility] MCH 28.9 27.1 - 33.3 pg [facility] MCHC 33.5 32.3 - 35.7 g/dL [facility] RDW CV 15.5(H) 11.1 - 14.9 % [facility] RDW SD 48.7(H) 35.7 - 48.1 fL [facility] NRBC abs 0.00 0.00 - 0.01 K/cumm [facility] Blood 10/07/2024 9:52 PM [employer] 10/07/2024 10:09 PM [employer] Sakshi Pena NP LAB BLOOD ORDER SCOT Final Result [facility] Department [place] [address] * Critical Care (10/07/2024 9:10 PM [employer]) Narrative Camelia Harper MD - 10/07/2024 9:10 PM [employer] Camelia Harper MD 10/14/2024 11:56 PM Critical [...] plan with the patient's team and other medical/retail sales vitamin consultant staff. This time was in addition to and separate from care provided by other practitioners on this day of service. us Sakshi Pena NP IN CLINIC/BEDSI DE ORDERABLES Final Result * eGFR (10/07/2024 8:52 PM [employer]) eGFR >90 >=60 mL/min/1. 73 m2 Comment: [...] last reviewed 2021. Blood 10/07/2024 8:52 PM [employer] 10/07/2024 9:04 PM [employer] us [place] LAB BLOOD ORDERABLE S Final Result [facility] Department [place] [address] * Differential, auto (10/07/2024 8:52 PM [employer]) Neutrophil abs 6.5 1.5 - 6.5 K/cumm Imm gran abs 0.0 0.0 - 0.1 K/cumm [facility] Lymphocyte abs 0.8 0.8 - 3.3 K/cumm [facility] Monocyte abs 0.8 0.2 - 0.8 K/cumm [facility] Eosinophil abs 0.1 0.0 - 0.5 K/cumm [facility] Basophil abs 0.0 0.0 - 0.1 K/cumm [facility] Neutrophil pct 79.1 % [facility] Comment: Interpretive Data Percent cell count reference ranges are not reported, since discordance with absolute values may lead to misinterpretation of CBC data. Current Interpretive Data was last revised on 2017. Imm gran pct 0.4 % [facility] Comment: Interpretive Data Percent cell count reference ranges are not reported, since discordance with absolute values may lead to misinterpretation of CBC data. Current Interpretive Data was last revised on 2017. Lymphocyte pct 10.1 % [facility] Comment: Interpretive Data Percent cell count reference ranges are not reported, since discordance with absolute values may lead to misinterpretation of CBC data. Current Interpretive Data was last revised on 2017. Monocyte pct 9.6 % [facility] Comment: Interpretive Data Percent cell count reference ranges are not reported, since discordance with absolute values may lead to misinterpretation of CBC data. Current Interpretive Data was last revised on 2017. Eosinophil pct 0.6 % [facility] Comment: Interpretive Data Percent cell count reference ranges are not reported, since discordance with absolute values may lead to misinterpretation of CBC data. Current Interpretive Data was last revised on 2017. Basophil pct 0.2 % [facility] Comment: Interpretive Data Percent cell count reference ranges are not reported, since discordance with absolute values may lead to misinterpretation of CBC data. Current Interpretive Data was last revised on 2017. Blood 10/07/2024 8:52 PM [employer] 10/07/2024 9:04 PM [employer] us [place] LAB BLOOD ORDERABLE S Final Result [facility] Department [place] [address] * (ABNORMAL) CBC with auto differential (10/07/2024 8:52 PM [employer]) [facility] WBC 8.2 3.8 - 9.9 K/cumm Hgb 8.7(L) 11.9 - 15.5 g/dL [facility] Hct 26.3(L) 35.6 - 45.5 % [facility] Plt 86(L) 150 - 400 K/cumm [facility] MPV 10.7 9.1 - 12.3 fL [facility] RBC 3.04(L) 3.90 - 5.20 M/cumm [facility] MCV 86.5 81.3 - 96.4 fL [facility] MCH 28.6 27.1 - 33.3 pg [facility] MCHC 33.1 32.3 - 35.7 g/dL [facility] RDW CV 15.4(H) 11.1 - 14.9 % [facility] RDW SD 48.6(H) 35.7 - 48.1 fL [facility] NRBC abs 0.00 0.00 - 0.01 K/cumm [facility] Blood 10/07/2024 8:52 PM [employer] 10/07/2024 9:04 PM [employer] [place] LAB BLOOD ORDERABLE S Final Result [facility] Department [place] [address] * (ABNORMAL) Phosphorus (10/07/2024 8:52 PM [employer]) [facility] Phosphorus, pl 1.5(L) 2.3 - 4.5 mg/dL Blood 10/07/2024 8:52 PM [employer] 10/07/2024 9:04 PM [employer] [place] LAB BLOOD ORDERABLE S Final Result [facility] Department [place] [address] * Magnesium (10/07/2024 8:52 PM [employer]) Pathologist [facility] Magnesium 1.9 1.4 - 2.5 mg/dL Blood 10/07/2024 8:52 PM [employer] 10/07/2024 9:04 PM [employer] [place] LAB BLOOD ORDERABLE S Final Result Performing Organization Address [facility] Co de Phone Number [facility] Department [place] [address] * (ABNORMAL) Basic metabolic panel (10/07/2024 8:52 PM [employer]) [facility] Sodium 136 135 - 145 mmol/L Potassium, pl 3.9 3.3 - 4.9 mmol/L [facility] Chloride 102 97 - 110 mmol/L [facility] CO2 26 22 - 32 mmol/L [facility] Anion gap 8 2 - 15 mmol/L [facility] BUN 13 6 - 25 mg/dL [facility] Creatinine 0.45(L) 0.60 - 1.10 mg/dL [facility] Glucose 123 70 - 199 mg/dL [facility] Comment: Interpretive Data Fasting glucose >/= 126 [...] 2022. Calcium 8.0(L) 8.5 - 10.3 mg/dL [facility] Blood 10/07/2024 8:52 PM [employer] 10/07/2024 9:04 PM [employer] [place] LAB BLOOD ORDERABLE S Final Result Performing Organization Address [facility] Phone Number [facility] [place] [address] * POCT glucose (10/07/2024 8:02 PM [employer]) Glucose, POC 129 70 - 199 mg/dL Blood 10/07/2024 8:02 PM [employer] 10/07/2024 8:02 PM [employer] Randell Corona MD LAB POCT ORDERABLES - DEVICE Final Result Performing Organization Address [facility] Phone Number [facility] [place] [address] * POCT glucose (10/07/2024 3:20 PM [employer]) Glucose, POC 130 70 - 199 mg/dL Blood 10/07/2024 3:20 PM [employer] 10/07/2024 3:20 PM [employer] Randell Corona MD LAB POCT ORDERABLES - DEVICE Final Result Performing Organization Address [facility] de Phone Number [facility] Department [place] [address] * (ABNORMAL) Lidocaine level (10/07/2024 12:36 PM [employer]) Lidocaine (Xylocaine) <1.0(L) 1.5 - 5.0 mcg/mL Blood 10/07/2024 12:3 6 PM [employer] 10/07/2024 1:30 PM [employer] Randell Corona MD LAB BLOOD ORDERABLES Final Result Performing Organization Address [facility] Co de Phone Number [facility] [place] [address] * POCT glucose (10/07/2024 11:28 AM [employer]) Glucose, POC 118 70 - 199 mg/dL Blood 10/07/2024 11:2 8 AM [employer] 10/07/2024 11:28 AM [employer] us Randell Corona MD LAB POCT ORDERABLES - DEVICE Final Result Performing Organization Address [facility] de Phone Number CORRY [facility] [place] [address] * ECG 12 lead (10/07/2024 9:30 AM [employer]) Ventricular Rate EKG/Min 77 BPM [facility] QRS-Interval (MSEC) 86 ms [facility] QT-Interval (MSEC) 404 ms [facility] QTc 457 ms [facility] R [place] 27 degrees [facility] T Madison 57 degrees [facility] Diagnosis Atrial fibrillation Abnormal ECG Confirmed by Carmel ALLISON, [facility] ([id number]) on 10/15/2024 5:18:00 AM [facility] 10/07/2024 9:30 AM [employer] 10/15/2024 5:18 AM [employer] us Moises Orellana DIGITAL ASSOCIATE MEDIA DIRECTOR ECG ORDERABLES Monie l Result Performing Organization Address [facility] Co de Phone Number [facility] * POCT glucose (10/07/2024 7:41 AM [employer]) Glucose, POC 138 70 - 199 mg/dL Blood 10/07/2024 7:41 AM [employer] 10/07/2024 7:41 AM [employer] Randell Corona MD LAB POCT ORDERABLES - DEVICE Final Result CORRY CATAL[facility] Department [place] [address] * Critical Care (10/07/2024 7:11 AM [employer]) Narrative Ivon Alvares MD - 10/07/2024 7:11 AM [employer] Ivon Alvares MD 10/08/2024 3:03 PM Critical [...] plan with the ICU team and other medical/retail sales vitamin consultant staff, making frequent assessments and decisions [...] * Lactate, whole blood (10/07/2024 6:50 AM [employer]) Lactate, bld 1.1 0.7 - 2.0 mmol/L Blood 10/07/2024 6:50 AM [employer] 10/07/2024 7:00 AM [employer] us [place] D[place] LAB BLOOD ORDERABLE S Final Result CORRY ALAYNA [facility] Department [place] [address] * (ABNORMAL) CBC without differential (10/07/2024 6:50 AM [employer]) WBC 11.0(H) 3.8 - 9.9 K/cumm Hgb 10.3(L) 11.9 - 15.5 g/dL [facility] Hct 31.4(L) 35.6 - 45.5 % [facility] Plt 120(L) 150 - 400 K/cumm [facility] MPV 10.8 9.1 - 12.3 fL [facility] RBC 3.60(L) 3.90 - 5.20 M/cumm [facility] MCV 87.2 81.3 - 96.4 fL [facility] MCH 28.6 27.1 - 33.3 pg [facility] MCHC 32.8 32.3 - 35.7 g/dL [facility] RDW CV 15.5(H) 11.1 - 14.9 % [facility] RDW SD 49.8(H) 35.7 - 48.1 fL [facility] NRBC abs 0.00 0.00 - 0.01 K/cumm [facility] Blood 10/07/2024 6:50 AM [employer] 10/07/2024 7:00 AM [employer] us [place] LAB BLOOD ORDERABLE S Final Result Performing Organization Address [facility] Co de Phone Number [facility] Department [place] [address] * POCT glucose (10/07/2024 3:54 AM [employer]) Pathologist [facility] Glucose, POC 140 70 - 199 mg/dL Blood 10/07/2024 3:54 AM [employer] 10/07/2024 3:54 AM [employer] Randell Corona MD LAB POCT ORDERABLES - DEVICE Final Result Performing Organization Address [facility]/ZIP Co de Phone Number [facility] Department [place] [address] * POCT glucose (10/06/2024 11:19 PM [employer]) Glucose, POC 128 70 - 199 mg/dL Blood 10/06/2024 11:1 9 PM [employer] 10/06/2024 11:19 PM [employer] us Randell Corona MD LAB POCT ORDERABLES - DEVICE Final Result CORRY [facility] Department [place] [address] * Critical Care (10/06/2024 9:54 PM [employer]) Narrative Camelia Harper MD - 10/06/2024 9:54 PM [employer] Camelia Harper MD 10/14/2024 11:49 PM Critical [...] plan with the ICU team and other medical/retail sales vitamin consultant staff, making frequent assessments and decisions [...] Final Result * eGFR (10/06/2024 9:02 PM [employer]) [facility] eGFR >90 >=60 mL/min/1. 73 m2 Comment: [...] last reviewed 2021. Blood 10/06/2024 9:02 PM [employer] 10/06/2024 9:11 PM [employer] us [place] LAB BLOOD ORDERABLE S Final Result [facility] Department [place] [address] * (ABNORMAL) Differential, auto (10/06/2024 9:02 PM [employer]) [facility] Neutrophil abs 7.3(H) 1.5 - 6.5 K/cumm Imm gran abs 0.0 0.0 - 0.1 K/cumm [facility] Lymphocyte abs 0.6(L) 0.8 - 3.3 K/cumm [facility] Monocyte abs 0.7 0.2 - 0.8 K/cumm [facility] Eosinophil abs 0.0 0.0 - 0.5 K/cumm [facility] Basophil abs 0.0 0.0 - 0.1 K/cumm [facility] Neutrophil pct 84.2 % [facility] Comment: Interpretive Data Percent cell count reference ranges are not reported, since discordance with absolute values may lead to misinterpretation of CBC data. Current Interpretive Data was last revised on 2017. Imm gran pct 0.1 % [facility] Comment: Interpretive Data Percent cell count reference ranges are not reported, since discordance with absolute values may lead to misinterpretation of CBC data. Current Interpretive Data was last revised on 2017. Lymphocyte pct 6.8 % [facility]RY [facility] Comment: Interpretive Data Percent cell count reference ranges are not reported, since discordance with absolute values may lead to misinterpretation of CBC data. Current Interpretive Data was last revised on 2017. Monocyte pct 8.6 % [facility] Comment: Interpretive Data Percent cell count reference ranges are not reported, since discordance with absolute values may lead to misinterpretation of CBC data. Current Interpretive Data was last revised on 2017. Eosinophil pct 0.1 % [facility] Comment: Interpretive Data Percent cell count reference ranges are not reported, since discordance with absolute values may lead to misinterpretation of CBC data. Current Interpretive Data was last revised on 2017. Basophil pct 0.2 % [facility] Comment: Interpretive Data Percent cell count reference ranges are not reported, since discordance with absolute values may lead to misinterpretation of CBC data. Current Interpretive Data was last revised on 2017. Blood 10/06/2024 9:02 PM [employer] 10/06/2024 9:11 PM [employer] us [place] LAB BLOOD ORDERABLE S Final Result [facility] Department of [place], [place] [id number] * (ABNORMAL) CBC with auto differential (10/06/2024 9:02 PM [employer]) WBC 8.6 3.8 - 9.9 K/cumm Hgb 10.4(L) 11.9 - 15.5 g/dL [facility] Hct 30.2(L) 35.6 - 45.5 % [facility] Plt 100(L) 150 - 400 K/cumm [facility] MPV 10.5 9.1 - 12.3 fL [facility] RBC 3.58(L) 3.90 - 5.20 M/cumm [facility] MCV 84.4 81.3 - 96.4 fL [facility] MCH 29.1 27.1 - 33.3 pg [facility] MCHC 34.4 32.3 - 35.7 g/dL [facility] RDW CV 15.0(H) 11.1 - 14.9 % [facility] RDW SD 46.4 35.7 - 48.1 fL [facility] NRBC abs 0.00 0.00 - 0.01 K/cumm [facility] Blood 10/06/2024 9:02 PM [employer] 10/06/2024 9:11 PM [employer] [place] Jeffery PA LAB BLOOD ORDERABLE S Final Result Performing Organization Address [facility] de Phone Number [facility] Department [place] [address] * (ABNORMAL) aPTT (10/06/2024 9:02 PM [employer]) [facility] aPTT 27(L) 28 - 38 sec Comment: Interpretive Data Heparin therapeutic range: 66.0 - 100.0 seconds. Range based on correlation with therapeutic heparin activity range of 0.3 - 0.7 Units/mL. Current interpretive data was last revised on 2023. Blood 10/06/2024 9:02 PM [employer] 10/06/2024 9:19 PM [employer] Geni Beltran DIGITAL ASSOCIATE MEDIA DIRECTOR LAB BLOOD ORDERABLES Monie l Result Performing Organization Address [facility] Co de Phone Number [facility] Department [place] [address] * Protime-INR (10/06/2024 9:02 PM [employer]) [facility] PT 11.5 9.7 - 13.0 sec INR 1.06 0.90 - 1.20 [facility] Comment: Interpretive data Oral anticoagulant therapeutic ranges: Venous thromboembolism prophylaxis or treatment: 2.0-3.0 CARDIOLOGY Standard range: 2.0-3.0 High-intensity range: 2.5-3.5 Refer to indication-specific guidelines for appropriate target ranges for prosthetic heart valve replacement. Current interpretive data was last revised on 2019. Blood 10/06/2024 9:02 PM [employer] 10/06/2024 9:19 PM [employer] Geni Beltran DIGITAL ASSOCIATE MEDIA DIRECTOR LAB BLOOD ORDERABLES Monie l Result Performing Organization Address City/[facility] Co de Phone Number [facility] Department [place] [address] * (ABNORMAL) Phosphorus (10/06/2024 9:02 PM [employer]) [facility] Phosphorus, pl 1.9(L) 2.3 - 4.5 mg/dL Blood 10/06/2024 9:02 PM [employer] 10/06/2024 9:11 PM [employer] Result [facility] [place] LAB BLOOD ORDERABLE S Final Result Performing Organization Address [facility] Co de Phone Number [facility] Department [place] [address] * Magnesium (10/06/2024 9:02 PM [employer]) [facility] Magnesium 2.1 1.4 - 2.5 mg/dL Blood 10/06/2024 9:02 PM [employer] 10/06/2024 9:11 PM [employer] [place] LAB BLOOD ORDERABLE S Final Result Performing Organization Address [facility] Co de Phone Number [facility] Department [place] [address] * (ABNORMAL) Basic metabolic panel (10/06/2024 9:02 PM [employer]) Pathologist [facility] Sodium 134(L) 135 - 145 mmol/L Potassium, pl 4.0 3.3 - 4.9 mmol/L [facility] Chloride 102 97 - 110 mmol/L [facility] CO2 26 22 - 32 mmol/L [facility] Anion gap 6 2 - 15 mmol/L [facility] BUN 16 6 - 25 mg/dL [facility] Creatinine 0.43(L) 0.60 - 1.10 mg/dL [facility] Glucose 139 70 - 199 mg/dL [facility] Comment: Interpretive Data Fasting glucose >/= 126 [...] 2022. Calcium 7.9(L) 8.5 - 10.3 mg/dL [facility] Blood 10/06/2024 9:02 PM [employer] 10/06/2024 9:11 PM [employer] [place] LAB BLOOD ORDERABLE S Final Result [facility] Department [place] [address] * POCT glucose (10/06/2024 7:45 PM [employer]) Pathologist [facility] Glucose, POC 149 70 - 199 mg/dL Blood 10/06/2024 7:45 PM [employer] 10/06/2024 7:45 PM [employer] us Randell Corona MD LAB POCT ORDERABLES - DEVICE Final Result Performing Organization Address [facility] de Phone Number CORRY [facility] Department [place] [address] * Neuro CT Outside Reference (10/06/2024 5:22 PM [employer]) Impressions [facility] - 10/06/2024 5:22 PM [employer] These images are for Reference purposes only and have not been reviewed by [facility]. There will be no report generated by a [facility] Radiologist. Narrative [facility] - 10/06/2024 5:22 PM [employer] EXAMINATION: Images For Reference Purposes Only Randell Corona MD IMG CT PROCEDURES Fi nal Result Performing Organization Address [facility] de Phone Number [email or web address] * Neuro CT Outside Reference (10/06/2024 5:22 PM [employer]) Impressions [facility] - 10/06/2024 5:22 PM [employer] These images are for Reference purposes only and have not been reviewed by [facility]. There will be no report generated by a [facility] Radiologist. Narrative [facility] - 10/06/2024 5:22 PM [employer] EXAMINATION: Images For Reference Purposes Only Randell Corona MD IMG CT PROCEDURES Fi nal Result Performing Organization Address [facility] de Phone Number [email or web address] * XR Abdomen Ap 1 Vw (10/06/2024 1:07 PM [employer]) Anatomical Region Laterality Modality Body, Abdomen N/A Digital Radiogra phy 10/06/2024 2:35 PM [employer] Impressions 10/06/2024 2:49 PM [employer] Gastric tube tip overlies the gastric body with side port over the gastric body. Increased gaseous distention of the stomach. Posterior fusion changes. Dictated by: Mustapha Mclaughlin MD PHD The radiology attending physician has personally reviewed this study, and had reviewed and/or edited this written report and agrees with it. Electronically signed by: Shavonne Sands M.D. Narrative 10/06/2024 2:49 PM [employer] EXAMINATION: Abdomen, one view. HISTORY: Ileus COMPARISON: [...] Result * POCT glucose (10/06/2024 11:46 AM [employer]) Glucose, POC 139 70 - 199 mg/dL Blood 10/06/2024 11:4 6 AM [employer] 10/06/2024 11:46 AM [employer] Randell Corona MD LAB POCT ORDERABLES - DEVICE Final Result [facility] Department [place] [address] * Critical Care (10/06/2024 7:50 AM [employer]) Narrative Ivon Alvares MD - 10/06/2024 7:50 AM [employer] Ivon Alvares MD 10/08/2024 3:02 PM Critical [...] plan with the ICU team and other medical/retail sales vitamin consultant staff, making frequent assessments and decisions [...] Result * POCT glucose (10/06/2024 7:37 AM [employer]) Glucose, POC 114 70 - 199 mg/dL Blood 10/06/2024 7:37 AM [employer] 10/06/2024 7:37 AM [employer] Randell Corona MD LAB POCT ORDERABLES - DEVICE Final Result [facility] Department [place] [address] * ECG 12 lead (10/06/2024 6:14 AM [employer]) Ventricular Rate EKG/Min 53 BPM [facility] Atrial Rate 53 BPM [facility] QRS-Interval (MSEC) 82 ms [facility] QT-Interval (MSEC) 514 ms [facility] QTc 482 ms [facility] R [place] 30 degrees [facility] T [place] 61 degrees [facility] Diagnosis Sinus bradycardia Abnormal ECG Confirmed by Annamaria Burt MD ([id number]) on 10/06/2024 9:18:23 AM [facility] 10/06/2024 6:14 AM [employer] 10/06/2024 9:18 AM [employer] [place] ECG ORDERABLES Fin al Result [facility] * POCT glucose (10/06/2024 3:55 AM [employer]) Glucose, POC 139 70 - 199 mg/dL Blood 10/06/2024 3:55 AM [employer] 10/06/2024 3:55 AM [employer] Randell Corona MD LAB POCT ORDERABLES - DEVICE Final Result Performing Organization Address [facility]/ZIP Co de Phone Number [facility] Department [place] [address] * (ABNORMAL) CBC without differential (10/06/2024 2:02 AM [employer]) [facility] Signature WBC 7.0 3.8 - 9.9 K/cumm Hgb 11.6(L) 11.9 - 15.5 g/dL [facility] Hct 33.6(L) 35.6 - 45.5 % [facility] Plt 121(L) 150 - 400 K/cumm [facility] MPV 10.0 9.1 - 12.3 fL [facility] RBC 4.05 3.90 - 5.20 M/cumm [facility] MCV 83.0 81.3 - 96.4 fL [facility] MCH 28.6 27.1 - 33.3 pg [facility] MCHC 34.5 32.3 - 35.7 g/dL [facility] RDW CV 14.6 11.1 - 14.9 % [facility] RDW SD 44.2 35.7 - 48.1 fL [facility] NRBC abs 0.00 0.00 - 0.01 K/cumm [facility] Blood 10/06/2024 2:02 AM [employer] 10/06/2024 2:14 AM [employer] [place] LAB BLOOD ORDERABLE S Final Result [facility] Department [place] [address] * XR Abdomen 1 View AP (10/06/2024 12:32 AM [employer]) Anatomical Region Laterality Modality Body, Abdomen N/A Digital Radiogra phy 10/06/2024 9:43 AM [employer] Impressions 10/06/2024 4:07 PM [employer] 10/05/2024 at 10:52 PM: Gastric tube loops [...] Shaq Ashley M.D. Narrative 10/06/2024 4:07 PM [employer] EXAMINATION: Abdomen, one view. HISTORY: Check tube [...] Result * POCT glucose (10/05/2024 11:15 PM [employer]) Glucose, POC 181 70 - 199 mg/dL Blood 10/05/2024 11:1 5 PM [employer] 10/05/2024 11:15 PM [employer] Randell Corona MD LAB POCT ORDERABLES - DEVICE Final Result [facility] Department [place] [address] * XR Abdomen 1 View AP (10/05/2024 10:53 PM [employer]) Anatomical Region Laterality Modality Body, Abdomen N/A Digital Radiogra phy 10/06/2024 9:43 AM [employer] Impressions 10/06/2024 4:07 PM [employer] 10/05/2024 at 10:52 PM: Gastric tube loops [...] Shaq Ashley M.D. Narrative 10/06/2024 4:07 PM [employer] EXAMINATION: Abdomen, one view. HISTORY: Check tube [...] it. Electronically signed by: Shaq Ashley M.D. [place] IMG XR PROCEDURES F inal Result * Critical Care (10/05/2024 10:42 PM [employer]) Narrative Camelia Harper MD - 10/05/2024 10:42 PM [employer] Camelia Harper MD 10/14/2024 11:50 PM Critical [...] plan with the ICU team and other medical/retail sales vitamin consultant staff, making frequent assessments and decisions [...] COVID-19 Coronavirus RNA Nasopharyngeal (10/05/2024 10:27 PM [employer]) COVID-19 RNA Negative Negative [facility] Nasopharyngeal 10/05/2024 10 :27 PM [employer] 10/05/2024 11:45 PM [employer] Narrative [facility] - 10/06/2024 12:34 AM [employer] Is the patient experiencing any symptoms consistent with COVID (eg. Fever, cough, shortness of breath)?->No What is the reason for testing?->Screening for semi-private room placement Interpretive data Testing performed by [facility] ([phone]). This test is performed using the [employer] Xpert Xpress CoV-2 plus assay. This is a real-time RT-PCR test intended for the qualitative detection of nucleic acid from the SARS-CoV-2. This assay has been cleared by the [place] Food and Drug administration. The performance characteristics have been verified by the [facility]. Results must be considered in the clinical context, and a negative result does not rule out infection. Interpretive data last revised 2024. Randell Corona MD LAB MICROBIOLOGY - G ENERAL ORDERABLES Final Result Performing Organization Address City/[facility]/ZIP Co de Phone Number [facility] Department [place] [address] [facility] * Lactate, whole blood (10/05/2024 10:27 PM [employer]) [facility] Lactate, bld 1.7 0.7 - 2.0 mmol/L Blood 10/05/2024 10:2 7 PM [employer] 10/05/2024 10:42 PM [employer] [place] DUMONT LAB BLOOD ORDERABLE S Final Result [facility] Department [place] [address] * aPTT (10/05/2024 10:27 PM [employer]) Pathologist [facility] aPTT 28 28 - 38 sec Comment: Interpretive Data Heparin therapeutic range: 66.0 - 100.0 seconds. Range based on correlation with therapeutic heparin activity range of 0.3 - 0.7 Units/mL. Current interpretive data was last revised on 2023. Blood 10/05/2024 10:2 7 PM [employer] 10/05/2024 10:53 PM [employer] Result [facility] [place] DUMONT LAB BLOOD ORDERABLE S Final Result Performing Organization Address [facility] Co de Phone Number [facility] of [address] [place] [address] * Protime-INR (10/05/2024 10:27 PM [employer]) PT 12.4 9.7 - 13.0 sec INR 1.14 0.90 - 1.20 [facility] Comment: Interpretive data Oral anticoagulant therapeutic ranges: Venous thromboembolism prophylaxis or treatment: 2.0-3.0 CARDIOLOGY Standard range: 2.0-3.0 High-intensity range: 2.5-3.5 Refer to indication-specific guidelines for appropriate target ranges for prosthetic heart valve replacement. Current interpretive data was last revised on 2019. Blood 10/05/2024 10:2 7 PM [employer] 10/05/2024 10:53 PM [employer] Result [facility] [place] D[place] LAB BLOOD ORDERABLE S Final Result Performing Organization Address [facility] [place] [address] * Type and screen (10/05/2024 10:27 PM [employer]) [place], indirect Negative ABO Rh A Positive [facility] Blood 10/05/2024 10:2 7 PM [employer] 10/05/2024 11:10 PM [employer] Narrative [facility] - 10/06/2024 12:34 AM [employer] Has the patient had Daratumumab or Isatuximab in the past 6 months?->Unknown Result [facility] [place] [facility] LAB BLOOD BANK TEST ORDERABLES Final Result Performing Organization Address [facility] Co de Phone Number [facility] [place] [address] * (ABNORMAL) Blood gas, arterial (10/05/2024 10:27 PM [employer]) pH, Art 7.47(H) 7.35 - 7.45 PCO2, Arterial 29(L) 35 - 45 mmHg [facility] PO2, Arterial 188(H) 83 - 108 mmHg [facility] HCO3 Art (Calculated) 22 20 - 30 mmol/L [facility] BE, art -1 mmol/L [facility] Comment: Interpretive Data No Reference Range Established Current Interpretive Data was last revised on 2017 O2 Sat Art (Measured) 100(H) 90 - 95 % [facility] Blood 10/05/2024 10:2 7 PM [employer] 10/05/2024 10:42 PM [employer] [place] DUMONT LAB BLOOD ORDERABLE S Final Result Performing Organization Address [facility] de Phone Number [facility] [place] [address] * XR Chest 1 View (10/05/2024 8:15 PM [employer]) Anatomical Region Laterality Modality Body, Chest N/A Digital Radiogra phy 10/06/2024 8:57 AM [employer] Impressions 10/06/2024 8:57 AM [employer] No prior chest radiographs are available for [...] Goodman MD, PHD Narrative 10/06/2024 8:57 AM [employer] EXAMINATION: 1 view chest radiograph Procedure Note [...] Electronically signed by: Mor Goodman MD, PHD us Gregg Rocha MD IMG XR PROCEDURES Final Result * eGFR (10/05/2024 8:14 PM [employer]) eGFR >90 >=60 mL/min/1. 73 m2 Comment: [...] last reviewed 2021. Blood 10/05/2024 8:14 PM [employer] 10/05/2024 8:23 PM [employer] us Geni Beltran [employer] LAB BLOOD ORDERABLES Monie l Result [facility] Department [place] [address] * (ABNORMAL) CBC without differential (10/05/2024 8:14 PM [employer]) [facility] WBC 6.1 3.8 - 9.9 K/cumm Hgb 11.4(L) 11.9 - 15.5 g/dL [facility] Hct 33.1(L) 35.6 - 45.5 % [facility] Plt 110(L) 150 - 400 K/cumm [facility] MPV 10.0 9.1 - 12.3 fL [facility] RBC 3.98 3.90 - 5.20 M/cumm [facility] MCV 83.2 81.3 - 96.4 fL [facility] MCH 28.6 27.1 - 33.3 pg [facility] MCHC 34.4 32.3 - 35.7 g/dL [facility] RDW CV 14.6 11.1 - 14.9 % [facility] RDW SD 44.3 35.7 - 48.1 fL [facility] NRBC abs 0.00 0.00 - 0.01 K/cumm [facility] Blood 10/05/2024 8:14 PM [employer] 10/05/2024 8:31 PM [employer] us Geni Beltran [employer] LAB BLOOD ORDERABLES Monie l Result [facility] Department [place] [address] * Phosphorus (10/05/2024 8:14 PM [employer]) [facility] Phosphorus, pl 3.6 2.3 - 4.5 mg/dL Blood 10/05/2024 8:14 PM [employer] 10/05/2024 8:23 PM [employer] us Randell Corona MD LAB BLOOD ORDERABLES Final Result [facility] [place] [address] * Magnesium (10/05/2024 8:14 PM [employer]) Magnesium 2.4 1.4 - 2.5 mg/dL Blood 10/05/2024 8:14 PM [employer] 10/05/2024 8:23 PM [employer] Randell Corona MD LAB BLOOD ORDERABLES Final Result [facility] Department [place] [address] * (ABNORMAL) Lipid panel (10/05/2024 8:14 PM [employer]) Cholesterol 95 30 - 199 mg/dL Comment: [...] revised on 2018. Triglycerides 83 <=149 mg/dL [facility] Comment: Interpretive Data Ages < or = [...] revised on 2018. HDL 31(L) >=40 mg/dL [facility] Comment: Interpretive Data Ages < or = [...] on 2018. LDL, calculated 47 <=129 mg/dL [facility] Comment: Interpretive Data Ages < or = [...] NCEP Expert Panel. Circulation 2004;110:227 3. Shiva Lowe al. UDAY Cardiol. 2019December 09;5(5):540-548. doi: 10.1001/[email or web address].2020.0013 Current Interpretive Data was last revised on 2024. Non-HDL Cholesterol 64 mg/dL [facility] Comment: Interpretive Data Ages < or = [...] last revised on 2018. Chol/HDL ratio 3 [facility] Blood 10/05/2024 8:14 PM [employer] 10/05/2024 10:11 PM [employer] Randell Corona MD LAB BLOOD ORDERABLES Final Result Performing Organization Address [facility]/ZIP Co de Phone Number [facility] Department [place] [address] * (ABNORMAL) Basic metabolic panel (10/05/2024 8:14 PM [employer]) [facility] Sodium 133(L) 135 - 145 mmol/L Potassium, pl 4.5 3.3 - 4.9 mmol/L [facility] Chloride 103 97 - 110 mmol/L [facility] CO2 22 22 - 32 mmol/L [facility] Anion gap 8 2 - 15 mmol/L [facility] BUN 10 6 - 25 mg/dL [facility] Creatinine 0.50(L) 0.60 - 1.10 mg/dL [facility] Glucose 197 70 - 199 mg/dL [facility] Comment: Interpretive Data Fasting glucose >/= 126 [...] 2022. Calcium 8.5 8.5 - 10.3 mg/dL [facility] Blood 10/05/2024 8:14 PM [employer] 10/05/2024 8:23 PM [employer] Geni Beltran NP LAB BLOOD ORDERABLES Monie l Result Performing Organization Address [facility]/ZIP Co de Phone Number [facility] Department [place] [address] * (ABNORMAL) POC Blood Gas and Chemistries, Arterial - (10/05/2024 8:11 PM [employer]) pH, Art POC 7.44 7.35 - 7.45 pCO2, Art POC 30(L) 35 - 45 mmHg [facility] pO2, Art POC 267(H) 83 - 108 mmHg [facility] Na, POC 133(L) 135 - 145 mmol/L [facility] K POC 4.3 3.3 - 4.9 mmol/L [facility] Comment: Interpretive Data Not all point of care methods assess for hemolysis. Confirm with instrument and retest K+ if not consistent with clinical signs and symptoms. Current Interpretive Data was last revised on 2023. Cl, POC 107 97 - 110 mmol/L [facility] Ionized Ca, POC 4.64 4.50 - 5.10 mg/dL [facility] Glucose, POC 197 70 - 199 mg/dL [facility] Lactate, POC 1.1 0.7 - 2.0 mmol/L [facility] SO2 (ruth) arterial 100(H) 90 - 95 % [facility] Base excess, POC -2.8 mmol/L [facility] HCO3, Art POC 20 20 - 30 mmol/L [facility] Hct, POC 36.0(L) 36.3 - 45.3 % [facility] Total Hb, POC 11.9 11.9 - 15.5 g/dL [facility] Blood 10/05/2024 8:11 PM [employer] 10/05/2024 8:11 PM [employer] us Randell Corona MD LAB POCT ORDERABLES - DEVICE Final Result [facility] Department [place] [address] * XR Scoliosis Ap and Lateral (10/05/2024 6:59 PM [employer]) Anatomical Region Laterality Modality Spine N/A Computed Radiogr aphy 10/05/2024 7:00 PM [employer] Impressions 10/05/2024 7:05 PM [employer] 1. Intraoperative films demonstrating complex posterior instrumented [...] Javid Mckinley M.D. Narrative 10/05/2024 7:05 PM [employer] EXAMINATION: TEMPORARY HISTORY: Operative films for closure. [...] agrees with it. Electronically signed by: Javid Mor Short, M.D. us Jenaro Escobar MD IMG XR PROCEDURES Final Result * (ABNORMAL) POC Blood Gas and Chemistries, Arterial - (10/05/2024 5:52 PM [employer]) pH, Art POC 7.33(L) 7.35 - 7.45 pCO2, Art POC 37 35 - 45 mmHg [facility] pO2, Art POC 206(H) 83 - 108 mmHg [facility] Na, POC 134(L) 135 - 145 mmol/L [facility] K POC 4.0 3.3 - 4.9 mmol/L [facility] Comment: Interpretive Data Not all point of care methods assess for hemolysis. Confirm with instrument and retest K+ if not consistent with clinical signs and symptoms. Current Interpretive Data was last revised on 2023. Cl, POC 106 97 - 110 mmol/L [facility] Ionized Ca, POC 4.64 4.50 - 5.10 mg/dL [facility] Glucose, POC 171 70 - 199 mg/dL [facility] Lactate, POC 1.3 0.7 - 2.0 mmol/L [facility] SO2 (ruth) arterial 100(H) 90 - 95 % [facility] excess, POC -5.9 mmol/L [facility] Hct, POC 32.0(L) 36.3 - 45.3 % [facility] Total Hb, POC 10.8(L) 11.9 - 15.5 g/dL [facility] Blood 10/05/2024 5:52 PM [employer] 10/05/2024 5:52 PM [employer] us Randell Corona MD LAB POCT ORDERABLES - DEVICE Final Result [facility] Department [place] [address] * Transfuse plasma (10/05/2024 5:13 PM [employer]) Blood us Gregg Rocha MD BLOOD TRANSFUSION ORDERA BLES Final Result [facility] Department [place] [address] * XR Spine Thoracic 2 Views (10/05/2024 4:57 PM [employer]) Anatomical Region Laterality Modality Spine N/A Computed Radiogr aphy 10/05/2024 5:01 PM [employer] Impressions 10/05/2024 5:01 PM [employer] 1. In progress posterior instrumented spinal fusion from C2-L1 with upper thoracic interbody cage. Electronically signed by: Guillermo Berry M.D. Narrative 10/05/2024 5:01 PM [employer] EXAMINATION: XR SPINE THORACIC 2 VIEWS HISTORY: [...] Fluoroscopy < 1 Hour (10/05/2024 4:55 PM [employer]) Narrative [facility] - 10/05/2024 4:55 PM [employer] The images from this study are not interpreted by Radiology. Please refer to the physician's procedure / OR operative note. us Randell Corona MD IMG FLUOROSCOPY PROC EDURES Final Result [facility] * Transfuse RBC (10/05/2024 4:45 PM [employer]) Blood us Gregg Rocha MD BLOOD TRANSFUSION ORDERA BLES Final Result [facility] Department [place] [address] * (ABNORMAL) POC Blood Gas and Chemistries, Arterial - (10/05/2024 4:38 PM [employer]) pH, Art POC 7.32(L) 7.35 - 7.45 pCO2, Art POC 36 35 - 45 mmHg [facility] pO2, Art POC 210(H) 83 - 108 mmHg [facility] Na, POC 133(L) 135 - 145 mmol/L [facility] K POC 3.6 3.3 - 4.9 mmol/L [facility] Comment: Interpretive Data Not all point of care methods assess for hemolysis. Confirm with instrument and retest K+ if not consistent with clinical signs and symptoms. Current Interpretive Data was last revised on 2023. Cl, POC 108 97 - 110 mmol/L [facility] Ionized Ca, POC 5.21(H) 4.50 - 5.10 mg/dL [facility] Glucose, POC 148 70 - 199 mg/dL [facility] Lactate, POC 1.1 0.7 - 2.0 mmol/L [facility] SO2 (ruth) arterial 100(H) 90 - 95 % [facility] Base excess, POC -6.9 mmol/L [facility] Hct, POC 30.0(L) 36.3 - 45.3 % [facility] Total Hb, POC 10.1(L) 11.9 - 15.5 g/dL [facility] Blood 10/05/2024 4:38 PM [employer] 10/05/2024 4:38 PM [employer] Randell Corona MD LAB POCT ORDERABLES - DEVICE Final Result [facility] Department [place] [address] * (ABNORMAL) POC Blood Gas and Chemistries, Arterial - (10/05/2024 3:26 PM [employer]) [facility] pH, Art POC 7.36 7.35 - 7.45 pCO2, Art POC 34(L) 35 - 45 mmHg [facility] pO2, Art POC 224(H) 83 - 108 mmHg [facility] Na, POC 133(L) 135 - 145 mmol/L [facility] K POC 3.6 3.3 - 4.9 mmol/L [facility] Comment: Interpretive Data Not all point of care methods assess for hemolysis. Confirm with instrument and retest K+ if not consistent with clinical signs and symptoms. Current Interpretive Data was last revised on 2023. Cl, POC 107 97 - 110 mmol/L [facility] Ionized Ca, POC 5.08 4.50 - 5.10 mg/dL [facility] Glucose, POC 161 70 - 199 mg/dL [facility] Lactate, POC 1.0 0.7 - 2.0 mmol/L [facility] SO2 (ruth) arterial 100(H) 90 - 95 % [facility] Base excess, POC -5.5 mmol/L [facility] Hct, POC 34.0(L) 36.3 - 45.3 % [facility] Total Hb, POC 11.2(L) 11.9 - 15.5 g/dL [facility] Blood 10/05/2024 3:26 PM [employer] 10/05/2024 3:26 PM [employer] Randell Corona MD LAB POCT ORDERABLES - DEVICE Final Result Performing Organization Address City/[facility]/ZIP Co de Phone Number [facility] Department [place] [address] * Transfuse plasma (10/05/2024 2:45 PM [employer]) Blood us Gregg Rocha MD BLOOD TRANSFUSION ORDERA BLES Final Result Performing Organization Address City/[facility] Co de Phone Number [facility] [place] [address] * Transfuse RBC (10/05/2024 2:34 PM [employer]) Blood us Gregg Rocha MD BLOOD TRANSFUSION ORDERA BLES Final Result Performing Organization Address City/[facility] [place] [address] * Prepare plasma: 1 Units (10/05/2024 2:27 PM [employer]) Product code [id number] Unit Number [id number] [facility] Product Blood Type ANEG [facility] Dispense Status PRESUMED TRANSFUSED [facility] Blood Venous blood specimen / Unknown 10/05/2024 2:27 PM [employer] 10/05/2024 2:27 PM [employer] Narrative [facility] - 10/06/2024 6:00 AM [employer] Date required: FFP # of Units:-1-Units Reasons:-Immediate need for surgical intervention us Gregg Rocha MD BLOOD BANK PRODUCT ORDER SCOT Final Result Performing Organization Address [facility] Co de Phone Number [facility] [address] [place] [address] * Prepare RBC: 1 Units (10/05/2024 2:27 PM [employer]) Product code [id number] Unit Number [id number] [facility] Product Blood Type APOS [facility] Dispense Status RETURNED [facility] Blood 10/05/2024 2:27 PM [employer] 10/05/2024 2:27 PM [employer] Narrative [facility] - 10/05/2024 6:44 PM [employer] Are special requirements needed? (All products are leukoreduced and CMV- safe)- >No Date required:-[id number] LRRBC # of [id number] Reasons:-Intra-op transfusion} us Gregg Rocha MD BLOOD BANK PRODUCT ORDER SCOT Final Result [facility] Department [place] [address] * (ABNORMAL) POC Blood Gas and Chemistries, Arterial - (10/05/2024 2:13 PM [employer]) pH, Art POC 7.35 7.35 - 7.45 pCO2, Art POC 36 35 - 45 mmHg [facility] pO2, Art POC 247(H) 83 - 108 mmHg [facility] Na, POC 132(L) 135 - 145 mmol/L [facility] K POC 3.7 3.3 - 4.9 mmol/L [facility] Comment: Interpretive Data Not all point of care methods assess for hemolysis. Confirm with instrument and retest K+ if not consistent with clinical signs and symptoms. Current Interpretive Data was last revised on 2023. Cl, POC 106 97 - 110 mmol/L [facility] Ionized Ca, POC 4.02(L) 4.50 - 5.10 mg/dL [facility] Glucose, POC 150 70 - 199 mg/dL [facility] Lactate, POC 1.1 0.7 - 2.0 mmol/L [facility] SO2 (ruth) arterial 100(H) 90 - 95 % [facility] Base excess, POC -5.2 mmol/L [facility] HCO3, Art POC 21 20 - 30 mmol/L [facility] Hct, POC 31.0(L) 36.3 - 45.3 % [facility] Total Hb, POC 10.2(L) 11.9 - 15.5 g/dL [facility] Blood 10/05/2024 2:13 PM [employer] 10/05/2024 2:13 PM [employer] Randell Corona MD LAB POCT ORDERABLES - DEVICE Final Result Performing Organization Address [facility] Co de Phone Number [facility] [place] [address] * (ABNORMAL) POCT hemoglobin, hematocrit and platelet count (10/05/2024 2:12 PM [employer]) [facility] Hgb, POC 9.7(L) 11.9 - 15.5 g/dL Hematocrit POC 29.3(L) 35.6 - 45.5 % [facility] Platelet POC 157 150 - 400 K/cumm [facility] Blood 10/05/2024 2:12 PM [employer] 10/05/2024 2:12 PM [employer] Randell Corona MD LAB POCT ORDERABLES - DEVICE Final Result Performing Organization Address [facility] Co de Phone Number [facility] [address] [place] [address] * Transfuse platelets (10/05/2024 2:02 PM [employer]) Blood Gregg Rocha MD BLOOD TRANSFUSION ORDERA BLES Final Result Performing Organization Address [facility] Co de Phone Number [facility] [facility] Department of [address] [place] [address] * Transfuse platelets (10/05/2024 1:55 PM [employer]) Blood Gregg Rocha MD BLOOD TRANSFUSION ORDERA BLES Final Result Performing Organization Address [facility] Co de Phone Number [facility] [place] [address] * Prepare plasma: 1 Units (10/05/2024 1:32 PM [employer]) Product code [id number] Unit Number [id number] [facility] Product Blood Type ANEG [facility] Dispense Status RETURNED [facility] Blood Venous blood specimen / Unknown 10/05/2024 1:32 PM [employer] 10/05/2024 1:31 PM [employer] Narrative [facility] - 10/05/2024 6:44 PM [employer] Date required:-20241005 FFP # of Units:-1-Units Reasons:-Immediate need for surgical intervention Gregg Rocha MD BLOOD BANK PRODUCT ORDER SCOT Final Result Performing Organization Address [facility] Co de Phone Number [facility] [address] [place] [address] * Prepare RBC: 1 Units (10/05/2024 1:32 PM [employer]) Product code [id number] Unit Number [id number] R [facility] Product Blood Type APOS [facility] Dispense Status PRESUMED TRANSFUSED [facility] Blood 10/05/2024 1:32 PM [employer] 10/05/2024 1:31 PM [employer] Narrative [facility] - 10/06/2024 6:00 AM [employer] Are special requirements needed? (All products are leukoreduced and CMV- safe)- >No Date required:-20241005 LRRBC # of [id number] Reasons:-Intra-op transfusion} us Gregg Rocha MD BLOOD BANK PRODUCT ORDER SCOT Final Result Performing Organization Address City/[facility]/ZIP Co de Phone Number [facility] [address] [place] [address] * Prepare platelets: 2 Units (10/05/2024 1:31 PM [employer]) Product code [id number] Unit Number [id number] N [facility] Product Blood Type APOS [facility] Dispense Status PRESUMED TRANSFUSED [facility] Product code [id number] [facility] Unit Number [id number] U [facility] Product Blood Type APOS [facility] Dispense Status PRESUMED TRANSFUSED [facility] Blood Venous blood specimen / Unknown 10/05/2024 1:31 PM [employer] 10/05/2024 1:31 PM [employer] Narrative [facility] - 10/06/2024 6:00 AM [employer] Are special requirements needed? (all products are leukoreduced)->No Date required:-20241005 PLT # of Units:-2-Units Reasons:-Major active bleeding} Gregg Rocha MD BLOOD BANK PRODUCT ORDER SCOT Final Result Performing Organization Address [facility] Co de Phone Number [facility] [address] [place] [address] * Transfuse cryoprecipitate (pooled units) (10/05/2024 1:24 PM [employer]) Blood us Gregg Rocha MD BLOOD TRANSFUSION ORDERA BLES Final Result Performing Organization Address City/[facility]/ZIP Co de Phone Number [facility] Department of [address] [place] [address] * Transfuse plasma (10/05/2024 1:22 PM [employer]) Blood Gregg Rocha MD BLOOD TRANSFUSION ORDERA BLES Final Result Performing Organization Address [facility] Co de Phone Number [facility] [address] [place] [address] * Prepare cryoprecipitate (pooled units): 1 Units (10/05/2024 1:07 PM [employer]) Pathologist [facility] Product code [id number] Unit Number [id number] Q [facility] Product Blood Type OPOS [facility] Dispense Status PRESUMED TRANSFUSED [facility] Blood Venous blood specimen / Unknown 10/05/2024 1:07 PM [employer] 10/05/2024 1:07 PM [employer] Narrative [facility] - 10/06/2024 6:00 AM [employer] Cryo # of [id number] Reasons:-Dysfibrinogenemia WITH bleeding} us Gregg Rocha MD BLOOD BANK PRODUCT ORDER SCTO Final Result Performing Organization Address City/[facility]/ZIP Co de Phone Number [facility] Department [place] [address] * Transfuse RBC (10/05/2024 12:59 PM [employer]) Blood Gregg Rocha MD BLOOD TRANSFUSION ORDERA BLES Final Result Performing Organization Address [facility] Co de Phone Number [facility] Department [place] [address] * (ABNORMAL) POC Blood Gas and Chemistries, Arterial - (10/05/2024 12:58 PM [employer]) pH, Art POC 7.37 7.35 - 7.45 pCO2, Art POC 33(L) 35 - 45 mmHg [facility] pO2, Art POC 249(H) 83 - 108 mmHg [facility] Na, POC 132(L) 135 - 145 mmol/L [facility] K POC 3.9 3.3 - 4.9 mmol/L [facility] Comment: Interpretive Data Not all point of care methods assess for hemolysis. Confirm with instrument and retest K+ if not consistent with clinical signs and symptoms. Current Interpretive Data was last revised on 2023. Cl, POC 108 97 - 110 mmol/L [facility] Ionized Ca, POC 5.39(H) 4.50 - 5.10 mg/dL [facility] Glucose, POC 117 70 - 199 mg/dL [facility] Lactate, POC 0.8 0.7 - 2.0 mmol/L [facility] SO2 (ruth) arterial 100(H) 90 - 95 % [facility] excess, POC -5.5 mmol/L [facility] Hct, POC 31.0(L) 36.3 - 45.3 % [facility] Total Hb, POC 10.3(L) 11.9 - 15.5 g/dL [facility] Blood 10/05/2024 12:5 8 PM [employer] 10/05/2024 12:58 PM [employer] us Randell Corona MD LAB POCT ORDERABLES - DEVICE Final Result [facility] Department [place] [address] * (ABNORMAL) POC Blood Gas and Chemistries, Arterial - (10/05/2024 10:53 AM [employer]) pH, Art POC 7.36 7.35 - 7.45 pCO2, Art POC 36 35 - 45 mmHg [facility] pO2, Art POC 252(H) 83 - 108 mmHg [facility] Na, POC 133(L) 135 - 145 mmol/L [facility] K POC 3.4 3.3 - 4.9 mmol/L [facility] Comment: Interpretive Data Not all point of care methods assess for hemolysis. Confirm with instrument and retest K+ if not consistent with clinical signs and symptoms. Current Interpretive Data was last revised on 2023. Cl, POC 106 97 - 110 mmol/L [facility] Ionized Ca, POC 4.49(L) 4.50 - 5.10 mg/dL [facility] Glucose, POC 103 70 - 199 mg/dL [facility] Lactate, POC 0.7 0.7 - 2.0 mmol/L [facility] SO2 (ruth) arterial 100(H) 90 - 95 % [facility] Base excess, POC -4.6 mmol/L [facility] Hct, POC 32.0(L) 36.3 - 45.3 % [facility] Total Hb, POC 10.5(L) 11.9 - 15.5 g/dL [facility] Blood 10/05/2024 10:5 3 AM [employer] 10/05/2024 10:53 AM [employer] Randell Corona MD LAB POCT ORDERABLES - DEVICE Final Result [facility] Department [place] [address] * AL AN PROCEDURE PLACEHOLDER (10/05/2024 9:21 AM [employer]) Narrative Addison Hernandez RN - 10/05/2024 9:21 AM [employer] Addison Hernandez RN 10/05/2024 9:21 AM Peripheral [...] tolerated procedure well with no complications Result [facility] Gregg Rocha MD ANESTHESIA ORDERABLES Fi nal Result * AL AN PROCEDURE PLACEHOLDER (10/05/2024 9:21 AM [employer]) Addison Ibrahim RN - 10/05/2024 9:21 AM [employer] Addison Hernandez RN 10/05/2024 9:21 AM Peripheral [...] tolerated procedure well with no complications Result [facility] Gregg Rocha MD ANESTHESIA ORDERABLES Fi nal Result * AL AN PROCEDURE PLACEHOLDER (10/05/2024 9:20 AM [employer]) Addison Ibrahim RN - 10/05/2024 9:20 AM [employer] Addison Hernandez RN 10/05/2024 9:20 AM Peripheral [...] tolerated procedure well with no complications Result [facility] Gregg Rocha MD ANESTHESIA ORDERABLES Fi nal Result * AL AN PROCEDURE PLACEHOLDER (10/05/2024 9:20 AM [employer]) Narrative Addison Hernandez RN - 10/05/2024 9:20 AM [employer] Addison Hernandez RN 10/05/2024 9:20 AM Arterial Line Patient location: pre-op holding Indication: continuous blood pressure monitoring and blood sampling needed Ultrasound assisted: yes Staff: Supervising provider: Gregg Rocha MD Placed by: SECURITY ATTENDANT: Johnna Munson CRNA Other staff: Addison Hernandez [...] tolerated procedure well with no complications Result [facility] Gregg Rocha MD ANESTHESIA ORDERABLES Fi nal Result * AL AN ELECTIVE ENDOTRACHEAL AIRWAY, AL AN PROCEDURE PLACEHOLDER (10/05/2024 9:18 AM [employer]) Narrative Addison Hernandez RN - 10/05/2024 9:18 AM [employer] Addison Hernandez RN 10/05/2024 9:19 AM Airway Patient location: OR Urgency: elective Date/time: 10/05/2024 7:57 AM Indications for airway management: anesthesia Difficult airway: no Staff: Supervising provider: Gregg Rocha MD Placed by: SECURITY ATTENDANT: Johnna Munson CRNA Other staff: Addison Hernandez [...] with: silk tape Number of attempts: 1 Gregg Rocha MD ANESTHESIA ORDERABLES Fi nal Result * Prepare plasma: 2 Units (10/05/2024 8:53 AM [employer]) Product code [id number] [facility] Unit Number [id number] * [facility] Product Blood Type APOS [facility] Dispense Status PRESUMED TRANSFUSED [facility] Product code [id number] Unit Number [id number] Y [facility] Product Blood Type APOS [facility] Dispense Status PRESUMED TRANSFUSED [facility] Blood Venous blood specimen / Unknown 10/05/2024 8:53 AM [employer] 10/05/2024 8:53 AM [employer] Narrative [facility] - 10/06/2024 12:56 AM [employer] Date required: FFP # of Units:-2-Units Reasons:-Immediate need for surgical intervention Gregg Rocha MD BLOOD BANK PRODUCT ORDER SCOT Final Result [facility] Department [place] [address] * (ABNORMAL) POC Blood Gas and Chemistries, Arterial - (10/05/2024 8:31 AM [employer]) pH, Art POC 7.41 7.35 - 7.45 pCO2, Art POC 36 35 - 45 mmHg [facility] pO2, Art POC 253(H) 83 - 108 mmHg [facility] Na, POC 132(L) 135 - 145 mmol/L [facility] K POC 3.7 3.3 - 4.9 mmol/L [facility] Comment: Interpretive Data Not all point of care methods assess for hemolysis. Confirm with instrument and retest K+ if not consistent with clinical signs and symptoms. Current Interpretive Data was last revised on 2023. Cl, POC 103 97 - 110 mmol/L [facility] Ionized Ca, POC 4.76 4.50 - 5.10 mg/dL [facility] Glucose, POC 118 70 - 199 mg/dL [facility] Lactate, POC 0.8 0.7 - 2.0 mmol/L [facility] SO2 (ruth) arterial 100(H) 90 - 95 % [facility] Base excess, POC -1.5 mmol/L [facility] Hct, POC 34.0(L) 36.3 - 45.3 % [facility] Total Hb, POC 11.3(L) 11.9 - 15.5 g/dL [facility] Blood 10/05/2024 8:31 AM [employer] 10/05/2024 8:31 AM [employer] Randell Corona MD LAB POCT ORDERABLES - DEVICE Final Result [facility] Department [place] [address] * Type and screen (10/05/2024 6:20 AM [employer]) [place], indirect Negative ABO Rh A Positive [facility] Blood 10/05/2024 6:20 AM [employer] 10/05/2024 6:44 AM [employer] Narrative [facility] - 10/05/2024 7:38 AM [employer] Has the patient had Daratumumab or Isatuximab in the past 6 months?->Unknown Maged Rainey NP LAB BLOOD BANK TEST ORDE ROSALBA Final Result Performing Organization Address [facility] de Phone Number [facility] of [address] [place] [address] * Prepare RBC: 2 Units (10/05/2024 5:48 AM [employer]) [facility] Product code [id number] Unit Number [id number] Z [facility] Product Blood Type APOS [facility] Dispense Status PRESUMED TRANSFUSED [facility] Product code [id number] [facility] Unit Number [id number] V [facility] Product Blood Type APOS [facility] Dispense Status PRESUMED TRANSFUSED [facility] Blood 10/05/2024 5:48 AM [employer] 10/05/2024 5:47 AM [employer] Narrative [facility] - 10/06/2024 12:56 AM [employer] Specify Procedure:->C2-L1 fusion Are special requirements needed? (All products are leukoreduced and CMV- safe)- >No Date required:-20241005 LRRBC # of [id number] Reasons:-Hold for procedure (specify procedure)} Maged Rainey NP BLOOD BANK PRODUCT ORDER SCOT Final Result Performing Organization Address [facility] de Phone Number [facility] [address] [place] [address] * IR Central Line Placement > 5 Years (10/04/2024 1:43 PM [employer]) Anatomical Region Laterality Modality Body N/A X-Ray Angiograph y 10/04/2024 3:00 PM [employer] Impressions 10/04/2024 3:00 PM [employer] Successful nontunneled catheter placement. PLAN: The catheter is ready for immediate use. When treatment is completed, this catheter can be removed at the bedside according to standard hospital protocol. Electronically signed by: Marlyn Mccoy PA-C Narrative 10/04/2024 3:00 PM [employer] EXAMINATION: NONTUNNELED CENTRAL VENOUS CATHETER PLACEMENT (STD) HISTORY: 79-year-old female presenting for central venous access prior to spine operation. Provider Presence: Marlyn Mccoy PA-C, was present from the beginning to the end of the procedure. SEDATION: Conscious sedation was used for this procedure. TECHNIQUE: The risks, benefits and alternatives were discussed and informed consent was obtained. Prior to beginning the procedure, [place] Protocol was used to confirm the patient's [...] was obtained. Prior to beginning the procedure, [place] Protocol was used to confirm the patient's [...] by: Marlyn Mccoy PA-C Randell Corona MD IMG IR PROCEDURES Fi nal Result * CT Thoracic and Lumbar Spine WO Contrast (10/04/2024 10:53 AM [employer]) Anatomical Region Laterality Modality Spine N/A Computed Tomogra phy 10/04/2024 2:00 PM [employer] Impressions 10/04/2024 5:43 PM [employer] 1. Posterior instrumented fusion from T3 to [...] Mehran Gonsalez M.D. Narrative 10/04/2024 5:43 PM [employer] EXAMINATION: 1. CT of the thoracic spine [...] it. Electronically signed by: Mehran Gonsalez M.D. us Randell Corona MD IMG CT PROCEDURES Fi nal Result * CT Thoracic Spine WO Contrast (09/23/2024 8:56 AM [employer]) Anatomical Region Laterality Modality Spine N/A Computed Tomogra phy Randell Corona MD IMG CT PROCEDURES Fi nal Result * CT Lumbar Spine WO Contrast (09/23/2024 8:56 AM [employer]) Anatomical Region Laterality Modality Spine N/A Computed Tomogra phy Randell Corona MD IMG CT PROCEDURES Fi nal Result * TYPE AND SCREEN 14 DAY (09/15/2024 1:08 PM [employer]) Pathologist [facility] [place], indirect Negative ABO Rh A Positive [facility] Blood 09/15/2024 1:08 PM [employer] 09/15/2024 4:46 PM [employer] Narrative [facility] - 09/15/2024 5:41 PM [employer] Has the patient had Daratumumab or Isatuximab in the past 6 months?->Unknown Is this test being ordered in advance for a procedure?->Yes Expected date of procedure:->10/05/24 Has the patient been transfused in the past 3 months?->No Has the patient been in the past 3 months?->No Maged Rainey LAB BLOOD BANK TEST RANDY NAVARRETE Final Result [facility] Department [place] [address] * eGFR (09/15/2024 1:08 PM [employer]) Pathologist [facility] eGFR 90 >=60 mL/min/1. 73 m2 Comment: [...] last reviewed 2021. Blood 09/15/2024 1:08 PM [employer] 09/15/2024 1:51 PM [employer] us Randell Corona MD LAB BLOOD ORDERABLES Final Result [facility] [address] [facility]. Department [place] [address] * Differential, auto (09/15/2024 1:08 PM [employer]) Neutrophil abs 4.6 1.5 - 6.5 K/cumm Imm gran abs 0.0 0.0 - 0.1 K/cumm [facility] Lymphocyte abs 1.8 0.8 - 3.3 K/cumm [facility] Monocyte abs 0.5 0.2 - 0.8 K/cumm [facility] Eosinophil abs 0.1 0.0 - 0.5 K/cumm [facility] Basophil abs 0.0 0.0 - 0.1 K/cumm [facility] Neutrophil pct 65.1 % [facility] Comment: Interpretive Data Percent cell count reference ranges are not reported, since discordance with absolute values may lead to misinterpretation of CBC data. Current Interpretive Data was last revised on 2017. Imm gran pct 0.4 % [facility] Comment: Interpretive Data Percent cell count reference ranges are not reported, since discordance with absolute values may lead to misinterpretation of CBC data. Current Interpretive Data was last revised on 2017. Lymphocyte pct 25.4 % [facility] Comment: Interpretive Data Percent cell count reference ranges are not reported, since discordance with absolute values may lead to misinterpretation of CBC data. Current Interpretive Data was last revised on 2017. Monocyte pct 6.7 % [facility] Comment: Interpretive Data Percent cell count reference ranges are not reported, since discordance with absolute values may lead to misinterpretation of CBC data. Current Interpretive Data was last revised on 2017. Eosinophil pct 1.8 % [facility] Comment: Interpretive Data Percent cell count reference ranges are not reported, since discordance with absolute values may lead to misinterpretation of CBC data. Current Interpretive Data was last revised on 2017. Basophil pct 0.6 % [facility] Comment: Interpretive Data Percent cell count reference ranges are not reported, since discordance with absolute values may lead to misinterpretation of CBC data. Current Interpretive Data was last revised on 2017. Blood 09/15/2024 1:08 PM [employer] 09/15/2024 1:51 PM [employer] us Randell Corona MD LAB BLOOD ORDERABLES Final Result [facility] [address] [facility]. Department [place] [address] * (ABNORMAL) CBC with auto differential (09/15/2024 1:08 PM [employer]) Pathologist [facility] WBC 7.0 3.8 - 9.9 K/cumm Hgb 13.7 11.9 - 15.5 g/dL [facility] Hct 41.9 35.6 - 45.5 % [facility] Plt 264 150 - 400 K/cumm [facility] MPV 10.1 9.1 - 12.3 fL [facility] RBC 4.97 3.90 - 5.20 M/cumm [facility] MCV 84.3 81.3 - 96.4 fL [facility] MCH 27.6 27.1 - 33.3 pg [facility] MCHC 32.7 32.3 - 35.7 g/dL [facility] RDW CV 15.6(H) 11.1 - 14.9 % [facility] RDW SD 47.2 35.7 - 48.1 fL [facility] NRBC abs 0.00 0.00 - 0.01 K/cumm [facility] Blood 09/15/2024 1:08 PM [employer] 09/15/2024 1:51 PM [employer] Randell Corona MD LAB BLOOD ORDERABLES Final Result Performing Organization Address [facility] Co de Phone Number [facility] [address] [facility] [address] [place] [address] * Vitamin D 25 hydroxy (09/15/2024 1:08 PM [employer]) Pathologist [facility] Vitamin D 25-OH 42 30 - 80 ng/mL Blood 09/15/2024 1:08 PM [employer] 09/15/2024 1:51 PM [employer] Randell Corona MD LAB BLOOD ORDERABLES Final Result Performing Organization Address [facility] de Phone Number [facility] [address] [facility] [address] [place] [address] * Erythrocyte sedimentation rate (09/15/2024 1:08 PM [employer]) Pathologist [facility] Erythrocyte sedimentation rate 13 1 - 30 mm/hr Blood 09/15/2024 1:08 PM [employer] 09/15/2024 1:51 PM [employer] Randell Corona MD LAB BLOOD ORDERABLES Final Result Performing Organization Address [facility] de Phone [facility] [id number] [facility] [address] [place] [address] * CRP (acute phase) (09/15/2024 1:08 PM [employer]) Pathologist [facility] CRP <3.0 <=10.0 mg/L Blood 09/15/2024 1:08 PM [employer] 09/15/2024 1:51 PM [employer] Randell Corona MD LAB BLOOD ORDERABLES Final Result Performing Organization Address [facility] Phone Number CORRY CHANGCH [id number] [facility] [address] [place] [address] * Hemoglobin A1c (09/15/2024 1:08 PM [employer]) [facility] Hgb A1C 5.5 4.0 - 5.6 % Estimated Average Glucose 111 mg/dL [facility] Comment: The ADA recommends reporting an estimated Average Glucose (eAG) with all Hemoglobin A1c results using the equation derived from a study of 507 normal and diabetic adults. Minority populations were underrepresented and children were not included. (Diabetes Care 31:8945-3895, 2008). The eAG is not equivalent to a fasting glucose. Blood 09/15/2024 1:08 PM [employer] 09/15/2024 1:51 PM [employer] Randell Corona MD LAB BLOOD ORDERABLES Final Result Performing Organization Address [facility] de Phone Number CORRY CATALANWCH [id number] [facility] [address] [place] [address] * Comprehensive metabolic panel (09/15/2024 1:08 PM [employer]) [facility] Sodium 135 135 - 145 mmol/L Potassium, pl 4.4 3.3 - 4.9 mmol/L [facility] Chloride 99 97 - 110 mmol/L [facility] CO2 24 22 - 32 mmol/L [facility] Anion gap 13 2 - 15 mmol/L [facility] BUN 19 6 - 25 mg/dL [facility] Creatinine 0.66 0.60 - 1.10 mg/dL [facility] Glucose 115 70 - 199 mg/dL [facility] Comment: Interpretive Data Fasting glucose >/= 126 [...] Units/L [facility] Blood 09/15/2024 1:08 PM [employer] 09/15/2024 1:51 PM [employer] us Randell Corona MD LAB BLOOD ORDERABLES Final Result [facility] [id number] [facility]. Department [place] [address] * Urinalysis reflex to microscopic and culture Urine, clean voided (09/15/2024 1:01 PM [employer]) Color, ur Straw Yellow Clarity, ur Clear [...] tendency for uric acid stone formation. Source: [facility] [address] Current Interpretive Data was last revised on [...] [facility] Urine, clean voided 09/15/2024 1:01 PM [employer] 09/15/2024 1:51 PM [employer] Randell Corona MD LAB MICROBIOLOGY - G ENERAL ORDERABLES Final Result CORRY STACK [id number] [facility]. Department of [address] [place] [address] * Nicotine metabolite screen, urine (09/15/2024 1:01 PM [employer]) Pathologist [facility] Nicotine, ur <5.0 <5.0 ng/mL [facility] Cotinine, ur <5.0 <5.0 ng/mL [facility] [place] ur <2.0 <2.0 ng/mL [facility] Comment: ADDITIONAL INFORMATION This test was developed and its performance characteristics determined by [facility] in a manner consistent with CLIA requirements. This test has not been cleared or approved by the U.S. Food and Drug Administration. Test Performed by: [facility] - [address] [address] Dielectric Tester: Nedra Hill Ph.D.; CLIA# [id number] Nornicotine, ur <2.0 <2.0 ng/mL [facility] Urine 09/15/2024 1:01 PM [employer] 09/15/2024 1:51 PM [employer] us Randell Corona MD LAB URINE ORDERABLES Final Result [facility]RY [facility] [id number] [address] Department [place] [address] [facility] * XR Scoliosis 6 or More Views (09/15/2024 9:45 AM [employer]) Anatomical Region Laterality Modality Spine N/A Computed Radiogr aphy 09/15/2024 11:0 2 AM [employer] Impressions 09/15/2024 12:02 PM [employer] 1. Unchanged T3-pelvis posterior instrumented fusion with [...] Evens Boyer D.O. Narrative 09/15/2024 12:02 PM [employer] EXAMINATION: XR SCOLIOSIS 6 OR MORE VIEWS [...] truncal imbalance, or pelvic obliquity. Procedure Note Evens Boyer DO - 09/15/2024 EXAMINATION: XR SCOLIOSIS 6 OR [...] Bone Density Multi Site (07/23/2024 3:43 PM [employer]) Anatomical Region Laterality Modality Body N/A Radiographic Shira ging Randell Corona MD IMG DXA PROCEDURES F inal Result from Last 3 Months or Most Recently Relevant to Health Maintenance Additional Health Concerns Infection Onset Date Last Indicated C. difficile 10/14/2024 10/14/2024 Insurance MEDICARE [facility] MEDICARE SUPPLEMENT MEDICARE [facility] MEDICARE [facility] MEDICARE SUPPLEMENT Advance Directives For more information, please contact: [phone] * Full Code (Latest Code Status on File) Date Activated Date Inactivated Comments 10/06/2024 1:51 PM 10/29/2024 8:29 PM * Full Code Date Activated Date Inactivated Comments 10/05/2024 10:15 PM 10/06/2024 1:51 PM * Full Code Date Activated Date Inactivated Comments 10/04/2024 12:14 PM 10/05/2024 4:42 AM * Full Code Date Activated Date Inactivated Comments 04/19/2019 3:50 PM 04/21/2019 2:21 PM Care Teams Heel Coverer Machine Operator Relationship Specialty Start Date End Date Elgin Chan MD PCP - General Family Medicine 05/31/24
--- OUTSIDE RECORDS SUMMARY | 2024-11-14 12:46 | XMS_ITS | Encounter Summary ---
Author Organization [facility] Address [address] [place] [address] Care Team Providers Care Estate Tax Examiner Name Role Phone Elgin Chan MD Primary Care Provide r Reason for Referral * Outpatient Services (Routine) - Closed Specialty Diagnoses / Procedures Referred By Contac t Referred To Contact Diagnoses Kyphosis Procedures CT THORACIC LUMBAR WO CONTRAST Isra Crowell MD Phone: tel: fax: Referral ID Status Reason Start Date Expiration Date Visits Re quested Visits Authorized [id number] Closed 02/08/2015 03/10/2016 1 1 Encounter Details Date Type Department Care Team (Late st Contact Info) Description 02/08/2015 Ancillary Orders [facility] Test Scheduling [address] [phone] Isra Crowell MD [address] [place] [phone] Kyphosis (Primary Dx) Social History Tobacco Use Types Packs/Day Years Used Date Smoking Tobacco: Never Cigarettes Smokeless Tobacco: Never Alcohol Use Standard Drinks/Week Comments Yes 0 (1 standard drink = 0.6 oz pur e alcohol) social Comments No Sex and Gender Information Value Date Recorded Sex Assigned at Not on file Legal 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 Gender Identity Not on file Sexual Orientation Not on file Occupation Industry Job Start Date Job End Date Not on file Not on file Not on file Not on file documented as of this encounter Plan of Treatment Upcoming Encounters Date Type Department Care Team (Late st Contact Info) Description 02/23/2025 8:00 AM CDT Appointment [facility] [place] [address] [place] [phone] Jenise Spann MD [address] [place] [phone] documented as of this encounter Results * CT THORACIC LUMBAR WO CONTRAST (02/09/2015 2:45 PM CDT) Anatomical Region Laterality Modality Spine Computed Tomogra phy Impressions 02/09/2015 4:14 PM CDT : 1. Extensive thoracolumbar fusions. A mild age indeterminate compression deformity of the superior endplate of T11 is noted. No osteolytic lesions are seen. WD:keila Job: [id number] Narrative 02/09/2015 4:[address] THORACIC AND LUMBAR SPINE WITHOUT CONTRAST, 02/09/2015 COMPARISON: None. HISTORY: Kyphosis, proximal junction kyphosis. TECHNIQUE: Axial CT images of the thoracic and lumbar spine were performed without contrast followed by coronal and sagittal reconstructions. FINDINGS: Posterior interpedicular fusions have been performed at the T11-S1 levels. The pedicular fusions are bilateral at every level except L3, where the fusion screw is present on the left, and a screw defect is present on the right. L5/S1 interbody fusion device is also present. A mild compression deformity is present involving the superior end plate of T11. This is age indeterminate, but may be remote. There is loss of height anteriorly at that level of approximately 20%. There is no significant retropulsion. The heights of the other thoracic and lumbar vertebral bodies are maintained. No other compression deformities are seen. Vacuum disc phenomena are present at multiple lower thoracic and lumbar levels. Multiple lumbar Schmorl's nodes are present and there are several levels of discogenic end plate change in the lumbar spine as well. No erosive lesions are seen. Bilateral laminectomies have been performed at the L3 and L5 levels. Posterior bone graft is present. No distinct osteolytic lesions are seen. The paraspinal soft tissues are unremarkable. us Isra Crowell MD CT ORDERABLES Final R esult documented in this encounter Visit Diagnoses Diagnosis Kyphosis- Primary Kyphosis (acquired) (postural) Kyphosis Kyphosis (acquired) (postural) documented in this encounter Care Teams Estate Tax Examiner Relationship Specialty Start Date End Date Elgin Chan MD [address] [place] [phone] PCP - General Family Practice 06/26/21 documented as of this encounter
--- OUTSIDE RECORDS SUMMARY | 2024-11-14 12:46 | XMS_ITS | Encounter Summary ---
Author Organization [facility] Address [address] [place] [address] Care Team Providers Care Pattern Grader Supervisor Name Role Phone Elgin Chan MD Primary Care Provide r Reason for Referral * Outpatient Services (Routine) - Closed Specialty Diagnoses / Procedures Referred By Contac t Referred To Contact Radiology Diagnoses Abnormal mammogram Procedures MAMMO DIGITAL DIAG UNI LEFT Thomas Zambrano MD Phone: tel: fax: [facility] [place] [address] [place] [address] Phone: tel: fax: Referral ID Status Reason Start Date Expiration Date Visits Re quested Visits Authorized [id number] Closed 07/18/2016 08/18/2017 1 1 SERVICE TECHNICIAN Encounter Details Date Type Department Care Team (Late st Contact Info) Description 07/18/2016 Ancillary Orders [facility] [place] [address] [place] [phone] Thomas Zambrano MD [address] [place] [phone] Abnormal mammogram Social History Tobacco Use Types Packs/Day Years Used Date Smoking Tobacco: Never Cigarettes Smokeless Tobacco: Never Alcohol Use Standard Drinks/Week Comments Yes 0 (1 standard drink = 0.6 oz pur e alcohol) social Comments No Sex and Gender Information Value Date Recorded Sex Assigned at Not on file Legal Sex Female 11:13 AM CDL SERVICE TECHNICIAN Gender Identity Not on file Sexual Orientation Not on file Occupation Industry Job Start Date Job End Date Not on file Not on file Not on file Not on file documented as of this encounter Plan of Treatment Upcoming Encounters Date Type Department Care Team (Late st Contact Info) Description 02/23/2025 8:00 AM CDT Appointment [facility] [place] [address] [place] [phone] Jenise Spann MD [address] [place] [phone] documented as of this encounter Results * (ABNORMAL) MAMMO DIGITAL DIAG UNI LEFT (10/10/2016 2:14 PM CDL SERVICE TECHNICIAN) Anatomical Region Laterality Modality Breast Left Mammography Impressions 10/10/2016 4:17 PM CDL SERVICE TECHNICIAN : Recommend stereotactic biopsy of indeterminate calcifications. BIRADS 4, biopsy is recommended. REMINDER: Mammography can detect about 85% of breast cancers. Posterior lesions near the chest wall are especially difficult to image. Regular physical examination and monthly breast self-examinations are important. MAMMOGRAPHY PERFORMED BY: MSR/dg Narrative 10/10/2016 4:17 PM CDL SERVICE TECHNICIAN UNILATERAL DIGITAL DIAGNOSTIC LEFT BREAST MAMMOGRAM WITH CAD, 10/10/16: This is a mammogram with magnification views. This is compared to previous study of 04/12/16. The calcifications in question on this study appear to be increased and slightly changed since previous examination. us Thomas Zambrano MD MAMMO ORDERABLES Final Result documented in this encounter Visit Diagnoses Diagnosis Abnormal mammogram Abnormal mammogram, unspecified Abnormal mammogram Abnormal mammogram, unspecified documented in this encounter Care Teams Pattern Grader Supervisor Relationship Specialty Start Date End Date Elgin [place] [phone] PCP - General Family Practice 06/26/21 documented as of this encounter
--- OUTSIDE RECORDS SUMMARY | 2024-11-14 12:46 | XMS_ITS | Encounter Summary ---
Author Organization [facility] Address [address] [place] [address] Care Team Providers Care Personal Lines Agent Name Role Phone Elgin Chan MD Primary Care Provide r Encounter Details Date Type Department Care Team (Late st Contact Info) Description 09/19/2015 Ancillary Orders [facility] Imaging Services [place] [address] [facility] [place] [phone] Isra Crowell MD [address] [place] [address] Scoliosis (Primary Dx); Kyphosis Social History Tobacco Use Types Packs/Day Years Used Date Smoking Tobacco: Never Cigarettes Smokeless Tobacco: Never Alcohol Use Standard Drinks/Week Comments Yes 0 (1 standard drink = 0.6 oz pur e alcohol) social Comments No Sex and Gender Information Value Date Recorded Sex Assigned at Not on file Legal Sex Female 11:13 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 Gender Identity Not on file Sexual Orientation Not on file Occupation Industry Job Start Date Job End Date Not on file Not on file Not on file Not on file documented as of this encounter Plan of Treatment Upcoming Encounters Date Type Department Care Team (Late st Contact Info) Description 02/23/2025 8:00 AM CDT Appointment [facility] [place] [address] [place] [phone] Jenise Spann MD [address] [place] [phone] documented as of this encounter Visit Diagnoses Diagnosis Scoliosis- Primary Scoliosis (and kyphoscoliosis), idiopathic Kyphosis Kyphosis (acquired) (postural) documented in this encounter Care Teams Personal Lines Agent Relationship Specialty Start Date End Date Elgin Chan MD [address] [place] [phone] PCP - General Family Practice 06/26/21 documented as of this encounter
--- OUTSIDE RECORDS SUMMARY | 2024-11-14 12:46 | XMS_ITS | Encounter Summary ---
Author Organization [facility] Address [address] [place] [address] Care Team Providers Care Director Appointment Name Role Phone Elgin Chan MD Primary Care Provide r Reason for Referral * Outpatient Services (Routine) - Closed Specialty Diagnoses / Procedures Referred By Contac t Referred To Contact Radiology Diagnoses Abnormal mammogram Procedures MAMMO DIGITAL DIAG UNI LEFT Thomas Zambrano MD Phone: tel: fax: [facility] [place] [address] [place] [address] Phone: tel: fax: Referral ID Status Reason Start Date Expiration Date Visits Re quested Visits Authorized [id number] Closed 03/28/2016 04/28/2017 1 1 Encounter Details Date Type Department Care Team (Late st Contact Info) Description 03/28/2016 Ancillary Orders [facility] [place] [address] [place] [address] Thomas Zambrano MD [address] [place] [phone] Abnormal mammogram (Primary Dx) Social History Tobacco Use Types Packs/Day Years Used Date Smoking Tobacco: Never Cigarettes Smokeless Tobacco: Never Alcohol Use Standard Drinks/Week Comments Yes 0 (1 standard drink = 0.6 oz pur e alcohol) social Comments No Sex and Gender Information Value Date Recorded Sex Assigned at Not on file Legal Sex Female 11:13 AM BOTTOM STEEP TENDER Gender Identity Not on file Sexual Orientation [...] [facility] [place] [address] [place] [phone] Jenise Spann MD [address] [place] [phone] documented as of this encounter Results * (ABNORMAL) MAMMO DIGITAL DIAG UNI LEFT (04/12/2016 8:44 AM CDT) Anatomical Region Laterality Modality Breast Left Mammography Impressions 04/12/2016 10:45 AM CDT : Probable benign left breast mammogram. BIRADS 3. RECOMMENDATION: A six month followup left breast mammogram is recommended to demonstrate stability of the calcifications. This should be performed with standard MLO and CC images as well as magnification views in both projections. SP:trh Narrative 04/12/2016 10:45 AM CDT DIAGNOSTIC DIGITAL LEFT BREAST MAMMOGRAM WITH CAD, 04/12/2016: COMPARISON: Previous studies performed at [facility] on 03/22/2016, 11/02/2014, 10/06/2013, 07/30/2012 and 06/27/2011. HISTORY: 71-year-old female with indeterminate left breast calcifications seen on recent screening mammograms. FINDINGS: Magnification views were obtained of the left breast in the MLO and CC projection. A 90 degree projection was also obtained. The calcifications in question are demonstrated on image as well. The calcifications are somewhat rounded in appearance and are in a somewhat linear configuration. These have the appearance of vascular calcification. Due to the fact that these were slightly more pronounced on the most recent screening mammogram, a six month followup left breast mammogram is recommended. us Thomas Zambrano MD MAMMO ORDERABLES Final Result documented in this encounter Visit Diagnoses Diagnosis Abnormal mammogram- Primary Abnormal mammogram, unspecified Abnormal mammogram Abnormal mammogram, unspecified documented in this encounter Care Teams Director Appointment Relationship Specialty Start Date End Date Elgin Chan MD [address] [place] [phone] PCP - General Family Practice 06/26/21 documented as of this encounter
--- OUTSIDE RECORDS SUMMARY | 2024-11-14 12:46 | XMS_ITS | Encounter Summary ---
Author Organization [facility] Address [address] [facility] [address] Care Team Providers Care Certified Medical Technician Name Role Phone Elgin Chan MD Primary Care Provide r Encounter Details Date Type Department Care Team (Late st Contact Info) Description 01/07/2019 Ancillary Orders [facility] Imaging Services [place] [address] [place] [phone] Remberto Packer MD [address] [place] [phone] Back pain, unspecified back location, unspecified back pain laterality, unspecified chronicity; Leg length discrepancy Social History Tobacco Use Types Packs/Day Years Used Date Smoking Tobacco: Never Cigarettes Smokeless Tobacco: Never Alcohol Use Standard Drinks/Week Comments Yes 0 (1 standard drink = 0.6 oz pur e alcohol) social Comments No Sex and Gender Information Value Date Recorded Sex Assigned at Not on file Legal 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 Female 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 Gender Identity Not on file Sexual Orientation Not on file Occupation Industry Job Start Date Job End Date Not on file Not on file Not on file Not on file documented as of this encounter Plan of Treatment Upcoming Encounters Date Type Department Care Team (Late st Contact Info) Description 02/23/2025 8:00 AM CDT Appointment [facility] W[facility] [place] [address] [place] [phone] Jenise Spann MD [address] [place] [phone] documented as of this encounter Results * XR LUMBAR SPINE 1 VW (01/07/2019 11:28 AM CDT) Anatomical Region Laterality Modality Spine Computed Radiogr aphy 01/07/2019 11:2 8 AM CDT Impressions 01/07/2019 12:00 PM CDT IMPRESSION: 1. No acute osseous abnormality seen in the lumbar spine. 2. Extensive surgical intervention has been performed throughout the visualized spine with fusion of the sacroiliac joint bilaterally. 3. Pelvic tilt with the right hip approximately 1 cm higher than the left. Narrative 01/07/2019 12:00 PM CDT Single view lumbar spine 01/07/2019 COMPARISON: 12/27/2016 HISTORY: 74-year-old female with low back pain. FINDINGS: A single view is obtained of the lumbar spine in the AP projection. There has been extensive surgical intervention throughout the thoracolumbar spine. There has been fusion of the sacroiliac joints bilaterally. There has been a previous fracture. The left femur. The pelvic ring is preserved without fracture or dislocation. 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 There is a pelvic tilt with the right femoral head approximately 1 cm higher than the left femoral head. The visualized lumbar spine demonstrates no identifiable acute abnormality. There appears to be at least moderate displacement throughout the lumbar spine. Procedure Note Carlo Tyson MD - 01/07/2019 Single view lumbar spine 01/07/2019 COMPARISON: 12/27/2016 HISTORY: 74-year-old female with low back pain. FINDINGS: A single view is obtained of the lumbar spine in the AP projection. There has been extensive surgical intervention throughout the thoracolumbar spine. There has been fusion of the sacroiliac joints bilaterally. There has been a previous fracture. The left femur. The pelvic ring is preserved without fracture or dislocation. 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 There is a pelvic tilt with the right femoral head approximately 1 cm higher than the left femoral head. The visualized lumbar spine demonstrates no identifiable acute abnormality. There appears to be at least moderate displacement throughout the lumbar spine. IMPRESSION: 1. No acute osseous abnormality seen in the lumbar spine. 2. Extensive surgical intervention has been performed throughout the visualized spine with fusion of the sacroiliac joint bilaterally. 3. Pelvic tilt with the right hip approximately 1 cm higher than the left. us Remberto Packer MD DIAGNOSTIC IMAGING ORDERABLES Fi nal Result documented in this encounter Visit Diagnoses Diagnosis Back pain, unspecified back location, unspecified back pain laterality, unspecified chronicity Leg length discrepancy Unequal leg length (acquired) Back pain, unspecified back location, unspecified back pain laterality, unspecified chronicity Leg length discrepancy Unequal leg length (acquired) documented in this encounter Care Teams Certified Medical Technician Relationship Specialty Start Date End Date Elgin Chan MD [facility] [address] [phone] PCP - General Family Practice 06/26/21 documented as of this encounter
--- OUTSIDE RECORDS SUMMARY | 2024-11-14 12:46 | XMS_ITS | Encounter Summary ---
Author Organization [facility] Address [address] [facility] [place] [address] Care Team Providers Care National Dedicated Truck Driver Name Role Phone Elgin Chan MD Primary Care Provide r Encounter Details Date Type Department Care Team (Late st Contact Info) Description 05/01/[address] 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 W[facility] [place] [address] [place] [phone] Jenise Spann MD [address] [place] [phone] documented as of this encounter Results * XR LUMBAR SPINE 2 OR 3 VW (05/01/2015 12:11 PM CDT) Anatomical Region Laterality Modality Spine Computed Radiogr aphy Impressions 05/01/2015 3:46 PM CDT : Compared to the previous study, there has been interval extension of spinal hardware with addition of a right paraspinal jacqueline. Additionally, an L4-L5 disc interspacer is now present in addition to the previously seen disc interspacer on the left at the L5-S1 interspace. Alignment appears intact. RO/db Narrative 05/01/2015 3:46 PM CDT THREE-VIEW LUMBAR SPINE, 05/01/15: INDICATION: Scoliosis and kyphosis. COMPARISON: 01/13/15. FINDINGS: AP, lateral, and spot view of the L5-S1 junction are submitted. Spinal hardware extends throughout the sacrolumbar spine. The spinal hardware is stable in appearance. Right-sided spinal jacqueline has been placed. Disc interspacer is again noted in the left aspect of the L5-S1 interspace and there has now been placement of additional interspacer at the L4-L5 level. Alignment is preserved. No acute compression deformity or subluxation. us External Provider Htsp DIAGNOSTIC IMAGING ORDERA BLES Final Result * XR THORACIC SPINE 2 VW (05/01/2015 12:10 PM CDT) Anatomical Region Laterality Modality Spine Computed Radiogr aphy Impressions 05/01/2015 3:46 PM CDT : 1. Compared to the previous study, there has been interval extension of spinal hardware now extending to the upper thoracic spine. There is decreased kyphotic angulation deformity with only small amount of residual dextroscoliosis. RO:mes Job: [id number] Narrative 05/01/2015 3:46 PM CDT TWO VIEW THORACIC SPINE, 05/01/2015: INDICATIONS: Scoliosis, status post spinal fusion. COMPARISON: Previous CT dated 02/09/2015 FINDINGS: AP and lateral views of the thoracic spine are submitted. Extensive spinal hardware is again noted throughout the thoracic spine. Spinal hardware appears grossly intact. There has been extension of spinal hardware now to involve the upper thoracic spine. There is decreased kyphotic angulation deformity when compared to the previous exam. There is mild residual dextroscoliotic curvature on frontal view. us External Provider Hts DIAGNOSTIC IMAGING ORDERA BLES Final Result * XR CERVICAL SPINE 2 OR 3 VIEWS (05/01/2015 12:10 PM CDT) Anatomical Region Laterality Modality Spine Computed Radiogr aphy Impressions 05/01/2015 3:45 PM CDT : 1. Stable degenerative changes of the lower cervical spine with stable grade I anterolisthesis of C3 on C4. RO:[facility] Job: [id number] Narrative 05/01/2015 3:45 PM CDT THREE VIEW CERVICAL SPINE, 05/01/2015: INDICATIONS: Scoliosis. COMPARISON: Previous MRI of cervical spine dated 11/28/2011. FINDINGS: AP, lateral, and spot view of the L5-S1 junction is submitted. There is stable grade I anterolisthesis of C3 on C4 which appears unchanged. Alignment of the cervical spine is otherwise intact. Multilevel degenerative changes are noted with disc space narrowing and endplate osteophyte formation at the C4-C5, C5-C6 and C6-C7 levels. Odontoid remains intact. No deviation of the lateral masses of C1. No prevertebral soft tissue swelling. Spinal hardware is projected over the visualized portion of the upper thoracic spine. us External Provider Hts DIAGNOSTIC IMAGING ORDERA BLES Final Result documented in this encounter Visit Diagnoses Diagnosis Scoliosis- Primary Scoliosis (and kyphoscoliosis), idiopathic Kyphosis Kyphosis (acquired) (postural) S/P spinal fusion Arthrodesis status Scoliosis Scoliosis (and kyphoscoliosis), idiopathic Kyphosis Kyphosis (acquired) (postural) S/P spinal fusion Arthrodesis status Scoliosis Scoliosis (and kyphoscoliosis), idiopathic Kyphosis Kyphosis (acquired) (postural) S/P spinal fusion Arthrodesis status Scoliosis Scoliosis (and kyphoscoliosis), idiopathic Kyphosis Kyphosis (acquired) (postural) S/P spinal fusion Arthrodesis status documented in this encounter Care Teams National Dedicated Truck Driver Relationship Specialty Start Date End Date Elgin Chan MD [address] [place] [address] PCP - General Family Practice 06/26/21 documented as of this encounter
--- OUTSIDE RECORDS SUMMARY | 2024-11-14 12:46 | XMS_ITS | Encounter Summary ---
Author Organization [facility] Address [address] [place] [address] Care Team Providers Care Supervisor Dyer Name Role Phone Elgin Chan MD Primary Care Provide r Encounter Details Date Type Department Care Team (Latest Contact Info) Description 10/05/2020 Ancillary Orders [facility] Imaging Services [place] [address] [place] [phone] Isra Crowell MD [address] [place] [address] Scoliosis due to degenerative disease of spine in adult patient Social History Tobacco Use Types Packs/Day Years Used Date Smoking Tobacco: Never Cigarettes Smokeless Tobacco: Never Alcohol Use Standard Drinks/Week Comments Yes 0 (1 standard drink = 0.6 oz pur e alcohol) social Comments No Sex and Gender Information Value Date Recorded Sex Assigned at Not on file Legal Sex Female 11:13 AM COMMUNITY NURSE Gender Identity Not on file Sexual Orientation Not on file Occupation Industry Job Start Date Job End Date Not on file Not on file Not on file Not on file COVID-19 Exposure Response Date Recorded In the last month, have you been in contact with someone who was confirmed or suspected to have Coronavirus / COVID-19? No / Unsure 10/05/2020 10:43 AM COMMUNITY NURSE documented as of this encounter Plan of Treatment Upcoming Encounters Date Type Department Care Team (Late st Contact Info) Description 02/23/2025 8:00 AM CDT Appointment [facility] Hyperbaric Outpatient Wound [place] [address] [place] [phone] Jenise Spann MD [address] [place] [phone] documented as of this encounter Results * XR SPINE ENTIRE 1 VIEW (10/05/2020 11:12 AM COMMUNITY NURSE) Anatomical Region Laterality Modality Spine Computed Radiogr aphy 10/05/2020 11:1 3 AM COMMUNITY NURSE Impressions 10/05/2020 11:19 AM COMMUNITY NURSE IMPRESSION: 1. There is a fracture through the left Carpio jacqueline region of L3-4 and 2. Air-filled moderately distended loops of colon suggesting an ileus. Narrative 10/05/2020 11:19 AM COMMUNITY NURSE Single view thoracolumbar spine 10/05/2020 COMPARISON: None. HISTORY: 75-year-old female with scoliosis. FINDINGS: A single view is obtained of the thoracolumbar spine in the AP projection on two films. There has been extensive surgical intervention throughout the thoracolumbar spine with surgical fusion of the bilateral sacroiliac joints. There is a defect in the left Carpio jacqueline inferiorly at the L3-4 level. The other two there are 2 rods are preserved. No acute osseous abnormality is appreciated. There are air-filled moderately dilated loops of colon throughout the abdomen. Procedure Note Carlo Tyson MD - 10/05/2020 Single view thoracolumbar spine 10/05/2020 COMPARISON: None. HISTORY: 75-year-old female with scoliosis. FINDINGS: A single view is obtained of the thoracolumbar spine in the AP projection on two films. There has been extensive surgical intervention throughout the thoracolumbar spine with surgical fusion of the bilateral sacroiliac joints. There is a defect in the left Carpio jacqueline inferiorly at the L3-4 level. The other two there are 2 rods are preserved. No acute osseous abnormality is appreciated. There are air-filled moderately dilated loops of colon throughout the abdomen. IMPRESSION: 1. There is a fracture through the left Carpio jacqueline region of L3-4 and 2. Air-filled moderately distended loops of colon suggesting an ileus. us Isra Crowell MD DIAGNOSTIC IMAGING RANDY NAVARRETE Final Result documented in this encounter Visit Diagnoses Diagnosis Scoliosis due to degenerative disease of spine in adult patient Scoliosis due to degenerative disease of spine in adult patient documented in this encounter Care Teams Supervisor Dyer Relationship Specialty Start Date End Date Elgin Chan MD [address] [place] [phone] PCP - General Family Practice 06/26/21 documented as of this encounter
--- OUTSIDE RECORDS SUMMARY | 2024-11-14 12:46 | XMS_ITS | Encounter Summary ---
Author Organization [facility] Address [address] [place] [address] Care Team Providers Care Crayon Grader Name Role Phone Elgin Chan MD Primary Care Provide r Reason for Referral * Outpatient Services (Routine) - Closed Specialty Diagnoses / Procedures Referred By Contac t Referred To Contact Diagnoses Lower extremity pain Osteopenia Procedures MRI LUMBAR W WO CONTRAST Noemi Angel MD NO ADDRESS ON FILE Referral ID Status Reason Start Date Expiration Date Visits Re quested Visits Authorized [id number] Closed 09/24/2010 03/23/2011 1 1 FINISHER Encounter Details Date Type Department Care Team (Late st Contact Info) Description 09/24/2010 Ancillary Orders [address] [place] [address] Noemi Angel MD NO ADDRESS ON FILE Lower extremity pain; Osteopenia Social History Tobacco Use Types Packs/Day Years Used Date Smoking Tobacco: Former Cigarettes Alcohol Use Standard Drinks/Week Comments Yes 0 (1 standard drink = 0.6 oz pur e alcohol) social Comments Unknown Sex and Gender Information Value Date Recorded Sex Assigned at Not on file Legal Sex Female 11:13 AM LENS FINISHER Gender Identity Not on file Sexual Orientation Not on file documented as of this encounter Plan of Treatment Upcoming Encounters Date Type Department Care Team (Late st Contact Info) Description 02/23/2025 8:00 AM CDT Appointment [facility] Hyperbaric Outpatient Wound [place] [address] [place] [phone] Jenise Spann MD [address] [place] [phone] documented as of this encounter Results * MRI LUMBAR W WO CONTRAST (09/24/2010 12:53 PM LENS FINISHER) Anatomical Region Laterality Modality Spine Magnetic Resonan ce Impressions 09/24/2010 8:40 PM LENS FINISHER : 1. Post-surgical changes in the lumbar spine at L4-5 and L5-S1. Multilevel neural foraminal stenosis at L3-4, L4-5, and L5-S1. 2. No significant spinal canal stenosis. KN/cg Narrative 09/24/2010 8:40 PM LENS FINISHER MRI LUMBAR SPINE WITH AND WITHOUT CONTRAST, 09/24/10: HISTORY: Lower extremity pain, which radiates to the thigh, ankles, and feet. Spinal fusion at two levels (L5-S1 and L4-5). TECHNIQUE: Multiplanar, multisequence MR imaging of the lumbar spine was obtained before and after intravenous contrast. COMPARISON: None. FINDINGS: For the purposes of this dictation there are presumed to be five lumbar-type vertebral bodies and the lowest well-formed intervertebral disk space is presumed to be L5-S1. There is mild dextroscoliosis of the lumbar spine. The conus medullaris ends at a normal level. L3-4: Bulging annulus, facet and ligamentum flavum hypertrophy are present with mild left neural foraminal stenosis. No canal stenosis. L4-5: Postlaminectomy changes are seen. There is no spinal canal stenosis. Bulging annulus, facet and ligamentum flavum hypertrophy contribute to moderate bilateral neural foraminal stenosis. L5-S1: There are post-surgical changes involving the posterior elements at L5-S1. There is disc desiccation and loss of disc space height. There is no spinal canal stenosis. Bulging annulus, facet and ligamentum flavum hypertrophy are present with severe right neural foraminal stenosis. There is no abnormal enhancement. There is a subcentimeter T2 hyperintense lesion in the posterior aspect of the right hepatic lobe, which is incompletely evaluated on this study. Procedure Note Alpesh Mejias MD - 09/24/2010 MRI LUMBAR SPINE WITH AND WITHOUT CONTRAST, 09/24/10: HISTORY: Lower extremity pain, which radiates to the thigh, ankles, andfeet. Spinal fusion at two levels (L5-S1 and L4-5). TECHNIQUE: Multiplanar, multisequence MR imaging of the lumbar spine wasobtained before and after intravenous contrast. COMPARISON: None. FINDINGS: For the purposes of this dictation there are presumed to be fivelumbar-type vertebral bodies and the lowest well-formed intervertebraldisk space is presumed to be L5-S1. There is mild dextroscoliosis of the lumbar spine. The conus medullarisends at a normal level. L3-4: Bulging annulus, facet and ligamentum flavum hypertrophy arepresent with mild left neural foraminal stenosis. No canal stenosis. L4-5: Postlaminectomy changes are seen. There is no spinal canalstenosis. Bulging annulus, facet and ligamentum flavum hypertrophycontribute to moderate bilateral neural foraminal stenosis. L5-S1: There are post-surgical changes involving the posterior elementsat L5-S1. There is disc desiccation and loss of disc space height. Thereis no spinal canal stenosis. Bulging annulus, facet and ligamentum flavumhypertrophy are present with severe right neural foraminal stenosis.There is no abnormal enhancement. There is a subcentimeter T2 hyperintense lesion in the posterior aspect ofthe right hepatic lobe, which is incompletely evaluated on this study. IMPRESSION: 1. Post-surgical changes in the lumbar spine at L4-5 and L5-S1.Multilevel neural foraminal stenosis at L3-4, L4-5, and L5-S1. 2. No significant spinal canal stenosis. KN/cg us Noemi Angel MD MR ORDERABLES Final Result documented in this encounter Visit Diagnoses Diagnosis Lower extremity pain Pain in limb Osteopenia Disorder of bone and cartilage, unspecified Lower extremity pain Pain in limb Osteopenia Disorder of bone and cartilage, unspecified documented in this encounter Care Teams Crayon Grader Relationship Specialty Start Date End Date Elgin Chan MD [facility] [place] [address] [place] [phone] PCP - General Family Practice 06/26/21 documented as of this encounter
--- OUTSIDE RECORDS SUMMARY | 2024-11-14 12:46 | XMS_ITS | Continuity of Care Document ---
Author Organization [facility] Address [address] [place] [address] Phone Care Team Providers Care Photographic Press Screwmaker Name Role Phone Sandra Carmona MD Unavailable Unavailable Allergies, Adverse Reactions, Alerts Substance Reaction Status Criticality metronidazole Hives Active No Information Medications Medication Instructions Dosage Effective Dates (start - stop) Status Comments Estrace 0.01% (0.1 mg/gram) vaginal cream insert (1G) by vaginal route every week 1 G - Active pt was mailed a coupon help her with cost verbal rx was taken by sandra at [facility] [phone] ov fax [phone] Prempro 0.3 mg-1.5 mg tablet take 1 tablet by oral route every day 1.00 tablet - Active called into [facility] in [facility] [phone] hydrocodone 10 mg-acetaminophen 325 mg tablet take 1 tablet by oral route every 4 - 6 hours as needed for pain 1.00 tablet - Active Lialda 1.2 gram tablet,delayed release take 2 tablet by oral route every day with a meal 2.4 G - Active Lyrica 100 mg capsule take 1 capsule by oral route 3 times every day 100 MG - Active oxybutynin chloride 5 mg tablet take 1 tablet by oral route 2 times every day 5 MG - Active Forteo 20 mcg/dose (600 mcg/2.4 mL) subcutaneous pen injector inject 0.08 milliliter by subcutaneous route every day into the thigh or abdominal wall 20 MCG - Active Procedures Procedure Date Handling Convey Specimen Phy Off To Lab Pelvic & Breast Exam-Cancer Screening-Ce rvical Or Vaginal VOID EHR Urinalysis Dip Stick Wo/Microscopy OFFICE/OUTPATIENT VISIT, NEW E/M Ep Preventive 40 To 64 Yrs 08 Bld Oclt Proxidase Actv Qual Feces 1 Spe c Handling Convey Specimen Phy Off To Lab Urinalysis Dip Stick Wo/Microscopy Advance Directives Directive Yes / No Effective Date File Name No Information Encounters Encounter Description Practice Location Reason(s) For Visit Diagnoses Date Provider Providers Copied on Encounter [facility] [address], [place], [place], [id number], tel:[phone] [facility] [address] No Information 7 Atkins Sandra. [address] [place] [address], Suite [facility], [place], [facility], [place]. tel: [phone] [facility] [address], [place], [place], [id number], [place] tel:[phone] [facility] [address] No Information 6 Atkins Sandra. [address] [place] [address], Suite [facility], [place], [facility], [place]. tel:[phone] [facility] [address], [place], [place], [id number], [place] tel:[phone] [facility] [address] No Information 6 Atkins Sandra. [address] [place] [address], [address], [place], [facility], [place]. tel:[phone] [facility] [address], [place], [place], [id number], [place] tel:[phone] [facility] [address] WWE (chief complaint) Encounter for gynecological examination with abnormal findingVulvar irritationVaginal dischargeFriable cervixHormone replacement therapy (postmenopausal)Po stmenopausal bleeding 6 Atkins Sandra. [address] [place] [address], [address], [place], [facility], [place]. tel:[phone] Referring Provider: Sandra Wynne, [address] [place] [address] [address], [place], [facility]. tel:[phone] OFFICE/OUTPAT IENT VISIT, [facility] [address], [place], [place], [id number], [place] tel:[phone] [facility] [address] Electrical Sign Wirer Visit (chief complaint) Consultation [phone] 5 Mathew Flores. [address] [place] [address], [address], [place], [address], [place]. tel:[phone] Referring Provider: Sandra Wynne, [address] [place] [address] Suite [facility], [place], [facility]. tel:[phone] E/M Ep Preventive 40 To 64 Yrs [facility] [address], [place], [place], [id number], [place] tel:[phone] [facility] No Information 0200 8 Mathew Flores. [address] [place] [address], [address], [place], [facility], [place]. tel:[phone] Referring Provider: Sandra Wynne, [address] [place] [address] [address], [place], [facility]. tel:[phone] [facility], [address], [place], [place], [id number], [place] tel:[phone] [facility] X_Examination, gynecologicalVagin itis, atrophic 7200 3 Mathew Flores. [address] [place] [address], [address], [place], [address], [place]. tel:[phone] Family History Family Member Type Diagnosis Age At Onset Father Problem (finding) hypertension Brother Problem (finding) Diabetes mellitus Mother Problem (finding) Mother Problem (finding) coronary arterioscleros is Father Problem (finding) Payers Payer name Insurance type Covered libertarian ID Authoriza tion(s) Medicare MB [id number] [facility] [id number] Social History Type Description Quantity Date Captured Comments Sex Female Smoking Status No Information Chief Complaint And Reason For Visit No Information Reason For Referral Reason For Referral No Information History Of Present Illness Encounter Date Complaint History Of Prese nt Illness WWE PMPHRT: Prempro 0.3mg dailyG PLast Pap: 10/19/07-WNLNo HPV statusLast Mammogram: up to date. patient has mammograms in [facility] Colonoscopy: up to datept c/o daily blood on her underware pad.Inhouse Dip UA: WNL Electrical Sign Wirer Visit PT will like to discuss HRT has a few questions.No Sx at this time.Patient was on HRT had a spine surgery, in May. She is living in [place], had mammogram there with additional views for dense breasts. SHe has a general practitioner Functional Status Date Functional Assessmen t No Information Instructions Date Instruction Additional Infor mation No Information Assessments Type Assessment Date No Information Patient Care Teams Name Effective Dates (start - stop) Status Members No Information
--- OUTSIDE RECORDS SUMMARY | 2024-11-14 12:46 | XMS_ITS | Encounter Summary ---
Author Organization [facility] Address [address] [place] [address] Care Team Providers Care Photographic Developer And Printer Name Role Phone Elgin Chan MD Primary Care Provide r Reason for Referral * Radiology Services (Routine) - Closed Specialty Diagnoses / Procedures Referred By Contac t Referred To Contact Diagnoses Constipation, unspecified constipation type Procedures XR ABDOMEN 1 VW Aisha Corona NP [address] [place] [address] Phone: tel: fax: Referral ID Status Reason Start Date Expiration Date Visits Re quested Visits Authorized [id number] Closed 12/27/2019 01/26/2021 1 1 Encounter Details Date Type Department Care Team (Latest Contact Info) Description 12/27/2019 Ancillary Orders [facility] Imaging Services [address] [phone] Aisha Corona NP [address] [place] [address] Constipation, unspecified constipation type Social History Tobacco Use Types Packs/Day Years Used Date Smoking Tobacco: Never Cigarettes Smokeless Tobacco: Never Alcohol Use Standard Drinks/Week Comments Yes 0 (1 standard drink = 0.6 oz pur e alcohol) social Comments No Sex and Gender Information Value Date Recorded Sex Assigned at Not on file Legal Sex Female 11:13 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 No / Unsure 12/27/2019 12:50 PM CDT documented as of this encounter Plan of Treatment Upcoming Encounters Date Type Department Care Team (Late st Contact Info) Description 02/23/2025 8:00 AM CDT Appointment [facility] [place] [address] [place] [phone] Jenise Spann MD [address] [place] [phone] documented as of this encounter Results * XR ABDOMEN 1 VW (12/27/2019 1:04 PM CDT) Anatomical Region Laterality Modality Abdomen Computed Radiogr aphy 12/27/2019 1:04 PM CDT Impressions 12/27/2019 2:08 PM CDT IMPRESSION: Mild ileus. Narrative 12/27/2019 2:08 PM CDT Exam: Abdomen one view. CLINICAL HISTORY: 74-year-old female with Constipation, unspecified constipation type COMPARISON: 12/15/2017. Interpretation: Gas is identified throughout nondistended small bowel and minimally prominent large bowel. A Small amount of feces is identified. There are postoperative changes from prior thoracolumbar and sacral fusion. Procedure Note Fan Aguirre MD - 12/27/2019 Exam: Abdomen one view. CLINICAL HISTORY: 74-year-old female with Constipation, unspecified constipation type COMPARISON: 12/15/2017. Interpretation: Gas is identified throughout nondistended small bowel and minimally prominent large bowel. A Small amount of feces is identified. There are postoperative changes from prior thoracolumbar and sacral fusion. IMPRESSION: Mild ileus. Aisha Corona NP DIAGNOSTIC IMAGING ORDERABLES Fi nal Result documented in this encounter Visit Diagnoses Diagnosis Constipation, unspecified constipation type Constipation, unspecified constipation type documented in this encounter Care Teams Photographic Developer And Printer Relationship Specialty Start Date End Date Elgin Chan MD [address] [place] [phone] PCP - General Family Practice 06/26/21 documented as of this encounter
--- OUTSIDE RECORDS SUMMARY | 2024-11-14 12:47 | XMS_ITS | Clinical Summary ---
Author Organization [facility] Address [address] [place] [address] Care Team Providers Care Principal Accounts Clerk Name Role Phone Unavailable Primary Care Provider Unavailabl e Allergies Active Allergy Reactions Criticality Noted Date Comments Metronidazole Hives Low 06/12/2017 Latex 07/30/2018 Added based on information entered during case entry, please review and add reactions, type, and severity as needed Medications Medication Sig Dispensed Refills Start Date End Date Status LYRICA 100 mg capsule Take 100 mg by mouth 2 (two) times a day. 2tab hs 1 06/02/2017 Active ibuprofen (ADVIL,MOTRIN) 400 MG tablet Take 400 mg by mouth 2 (two) times a day as needed for pain. Active HYDROcodone-acetamin ophen (NORCO) 5-325 mg per tablet Take 1 tablet by mouth 3 (three) times a day as needed. 09/04/2017 Active diclofenac (VOLTAREN) 1 % Gel Apply 1 g topically 2 (two) times a day as needed. 09/08/2017 Active gabapentin (NEURONTIN) 300 MG capsule Take 300 mg by mouth at bedtime. Active mirabegron (MYRBETRIQ) 50 mg Tb24 daily. 04/28/2020 Active pramipexole (MIRAPEX) 0.25 MG tablet Take 0.25 mg by mouth daily. Active traMADol (ULTRAM) 50 mg tablet Take one tablet (50 mg total) by mouth every 6 (six) hours. 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 07/29/2018 Overview (07/29/2018): Added automatically from request for surgery [id number] Osteoarthrosis, localized, primary, involving glass nd, right 07/29/2018 Overview (07/29/2018): Added automatically from request for surgery [id number] Chronic pain syndrome 06/20/2017 Varicose veins of both lower extremities Hard of hearing Family History Medical History Relation Comments Diabetes Brother Hypertension Father No Known Problems Maternal Aunt No Known Problems Maternal Grandfather No Known Problems Maternal Grandmother No Known Problems Maternal Uncle Arthritis Mother Heart disease Mother No Known Problems Other No Known Problems Paternal Aunt No Known Problems Paternal Grandfather No Known Problems Paternal Grandmother No Known Problems Paternal Uncle No Known Problems Sister Anesthesia problems Neg Hx Bleeding disorder Neg Hx Cancer Neg Hx Collagen disease Neg Hx Lung disease Neg Hx Osteoporosis Neg Hx Rheum arthritis Neg Hx Scoliosis Neg Hx Stroke Neg Hx Relation Status Comments Brother Father Maternal Aunt Maternal Grandfather Maternal Grandmother Maternal Uncle Mother Other Paternal Aunt Paternal Grandfather Paternal Grandmother Paternal Uncle Sister Social History Tobacco Use Types Packs/Day Years Used Date Smoking Tobacco: Never Smokeless Tobacco: Never Alcohol Use Standard Drinks/Week Comments Yes 0 (1 standard drink = 0.6 oz pur e alcohol) Humiliation, Afraid, Rape, and Kick questionnair e Answer Date Recorded Within the last year, have y ou been afraid of your partner or ex-partner? No 10/18/2021 Within the last year, have y ou been humiliated or emotionally abused in other ways by your partner or ex-partner? No Within the last year, have y ou been kicked, hit, slapped, or otherwise physically hurt by your partner or ex-partner? No 10/18/2021 Within the last year, have y ou been raped or forced to have any kind of sexual activity by your partner or ex-partner? No 10/18/2021 Social Connection and Isolat ion Panel [NHANES] Answer Date Recorded In a typical week, how many times do you talk on the phone with family, friends, or neighbors? More than three times a week 10/18/2021 How often do you get togethe r with friends or relatives? More than three times a week 10/18/2021 How often do you attend [facility] or jehovah's witness services? More than 4 times per year 10/18/2021 Do you belong to any clubs o r organizations such as judaism groups, unions, fraternal or athletic groups, or school groups? Yes 10/18/2021 How often do you attend meet ings of the clubs or organizations you belong to? More than 4 times per year 10/18/2021 Are you , , di vorced, , never , or living with a partner? 10/18/2021 AUDIT-C Answer Date Recorded Q1: How often do you have a drink containing alc ohol? 2-3 times a week 10/18/2021 Q2: How many drinks containi ng alcohol do you have on a typical day when you are drinking? 1 or 2 10/18/2021 Q3: How often do you have si x or more drinks on one occasion? Never 10/18/2021 Overall Financial Resource Strain (CARDIA) Answe r Date Recorded How hard is it for you to pa y for the very basics like food, housing, medical care, and heating? Not hard at all 10/18/2021 [facility] - Occupational Stress Questionnaire Answer Date Recorded Do you feel stress - tense, restless, nervous, or anxious, or unable to sleep at night because your mind is troubled all the time - these days? Not at all 10/18/2021 Exercise Vital Sign Answer Date Recorde d On average, how many days pe r week do you engage in moderate to strenuous exercise (like a brisk walk)? 5 days 10/18/2021 On average, how many minutes do you engage in exercise at this level? 40 min 10/18/2021 Hunger Vital Sign Answer Date Recorded Within the past 12 months, y ou worried that your food would run out before you got the money to buy more. Never true 10/19/19 22 Within the past 12 months, t he food you bought just didn't last and you didn't have money to get more. Never true 10/18/2021 PRAPARE - Transportation Answer Date Re corded In the past 12 months, has l ack of transportation kept you from medical appointments or from getting medications? No 10/09 In the past 12 months, has l ack of transportation kept you from meetings, work, or from getting things needed for daily living? No 10/18/2021 Housing Stability Vital Sign Answer Ronny e Recorded In the last 12 months, was t here a time when you were not able to pay the mortgage or rent on time? No 10/18/2021 In the last 12 months, how many places have you lived? 1 10/18/2021 In the last 12 months, was t here a time when you did not have a steady place to sleep or slept in a care home (including now)? No 10/18/2021 Health Literacy Answer Date Recorded Health Literacy 1 05/16/2021 Sex and Gender Information Value Date Recorded Sex Assigned at Not on file Gender Identity Not on file Sexual Orientation Not on file Job Start Date Occupation Industry Not on file Not on file Not on file Last Filed Vital Signs Vital Sign Reading Time Taken Comments Blood Pressure 145/67 10/18/2021 10:09 AM ASPHALT SCREED OPERATOR Pulse 70 10/18/2021 10:09 AM ASPHALT SCREED OPERATOR Temperature 36.6 C (97.9 F) 10/18/2021 10:09 AM ASPHALT SCREED OPERATOR Respiratory Rate 18 06/12/2017 11:15 AM CDT Oxygen Saturation - - Inhaled Oxygen Concentration - - Weight 66.4 kg (146 lb 6.4 oz) 10/18/2021 10:09 AM ASPHALT SCREED OPERATOR Height 167.6 cm (5' 6 ) 10/18/2021 10:09 AM ASPHALT SCREED OPERATOR Body Mass Index 23.63 10/18/2021 10:09 AM ASPHALT SCREED OPERATOR Plan of Treatment Health Maintenance Due Date Last Done Comments Annual Wellness Exam 1945 Hepatitis C Screening 1945 Depression Screening 1965 TDAP/DTaP/TD Vaccines (1 - Tdap) 1966 Zoster Vaccine (1 of 2) 1997 DXA Scan 01/10/2012 Respiratory Syncytial Virus (RSV) Immunization - pts and pts aged 60 yrs+ (1 - 1-dose 75+ series) 2022 COVID-19 Vaccine (2 - season) 2024 12/29/2020 Influenza Series (#1) 2024 06/22/2020 , 06/23/2019, 06/03/2018, Additional history exists Pneumococcal Vaccine 50+ Completed 06/22/2020, 10/2011 Hepatitis B Vaccine Aged Out No longe r eligible based on patient's age to complete this topic
--- OUTSIDE RECORDS SUMMARY | 2024-11-14 12:47 | XMS_ITS | Encounter Summary ---
Author Organization [facility] Address [address] [place] [address] Care Team Providers Care Pre Owned Sales Manager Name Role Phone Elgin Chan MD Primary Care Provide r Encounter Details Date Type Department Care Team (Late st Contact Info) Description 10/09/2012 Ancillary Orders [facility] [address] [place] [phone] Oscar Roca MD [address] [place] [id number] Spinal stenosis (Primary Dx) Social History Tobacco Use Types Packs/Day Years Used Date Smoking Tobacco: Never Cigarettes Alcohol Use Standard Drinks/Week Comments Yes 0 (1 standard drink = 0.6 oz pur e alcohol) social Comments No Sex and Gender Information Value Date Recorded Sex Assigned at Not on file Legal Sex Female 11:13 AM BUTTONHOLER Gender Identity Not on file Sexual Orientation [...] [facility] [place] [address] [place] [phone] Jenise Spann MD [address] [place] [phone] documented as of this encounter Visit Diagnoses Diagnosis Spinal stenosis- Primary Spinal stenosis, unspecified region other than cervical documented in this encounter Care Teams Pre Owned Sales Manager Relationship Specialty Start Date End Date Elgin Chan MD [facility] [address] [place] [phone] PCP - General Family Practice 06/26/21 documented as of this encounter
--- OUTSIDE RECORDS SUMMARY | 2024-11-14 12:47 | XMS_ITS | Encounter Summary ---
Author Organization [facility] Address [address] [place] [address] Care Team Providers Care Seconds Handler Name Role Phone Elgin Chan MD Primary Care Provide r Encounter Details Date Type Department Care Team (Latest Contact Info) Description 06/01/2024 Ancillary Orders [facility] [place] [address] [place] [phone] Randell Corona MD [address] [phone] Postmenopausal osteoporosis (Primary Dx) Social History Tobacco Use Types Packs/Day Years Used Date Smoking Tobacco: Never Cigarettes Smokeless Tobacco: Never Alcohol Use Standard Drinks/Week Comments Yes 0 (1 standard drink = 0.6 oz pur e alcohol) social Comments No Sex and Gender Information Value Date Recorded Sex Assigned at Not on file Legal Sex Female 11:13 AM GENERAL MANAGER LAND [employer] Gender Identity Not on file Sexual Orientation Not on file Occupation Industry Job Start Date Job End Date Not on file Not on file Not on file Not on file documented as of this encounter Plan of Treatment Upcoming Encounters Date Type Department Care Team (Late st Contact Info) Description 02/23/2025 8:00 AM CDT Appointment [facility] [place] [address] [place] [phone] Jenise Spann MD [address] [place] [phone] documented as of this encounter Visit Diagnoses Diagnosis Postmenopausal osteoporosis- Primary Senile osteoporosis documented in this encounter Care Teams Seconds Handler Relationship Specialty Start Date End Date Elgin Chan MD [address] [place] [address] PCP - General Family Practice 06/26/21 documented as of this encounter
--- OUTSIDE RECORDS SUMMARY | 2024-11-14 12:47 | XMS_ITS | Encounter Summary ---
Author Organization [facility] Address [address] [facility] [place] [address] Care Team Providers Care Remanufacturing Technician Name Role Phone Elgin Chan MD Primary Care Provide r Encounter Details Date Type Department Care Team (Late st Contact Info) Description 12/23/2016 Ancillary Orders [facility] Imaging Services [place] [address] [place] [phone] Remberto Packer MD [address] [place] [phone] Chronic low back pain without sciatica, unspecified back pain laterality Social History Tobacco Use Types Packs/Day Years Used Date Smoking Tobacco: Never Cigarettes Smokeless Tobacco: Never Alcohol Use Standard Drinks/Week Comments Yes 0 (1 standard drink = 0.6 oz pur e alcohol) social Comments No Sex and Gender Information Value Date Recorded Sex Assigned at Not on file Legal Sex Female 11:13 AM CARDING SUPERVISOR Gender Identity Not on file Sexual Orientation Not on file Occupation Industry Job Start Date Job End Date Not on file Not on file Not on file Not on file documented as of this encounter Plan of Treatment Upcoming Encounters Date Type Department Care Team (Late st Contact Info) Description 02/23/2025 8:00 AM CDT Appointment [facility] [place] [address] [place] [phone] Jenise Spann MD [address] [place] [phone] documented as of this encounter Results * XR LUMBAR SPINE 2 OR 3 VW (12/27/2016 11:32 AM CDT) Anatomical Region Laterality Modality Spine Computed Radiogr aphy Impressions 12/27/2016 2:09 PM CDT : Extensive posterior spinal fusion hardware in place. Mild degenerative changes in the lumbar spine. WR/db Narrative 12/27/2016 2:09 PM CDT LUMBAR SPINE, TWO VIEWS, 12/27/16: HISTORY: Chronic low back pain without sciatica, unspecified back pain laterality. COMPARISON: No comparison. FINDINGS: Two views were obtained of the lumbar spine with the patient standing. Extensive posterior fusion hardware is seen extending from the included lower thoracic spine to the SI joints. The hardware appears intact with no evidence of loosening. Disc spacers are in place at L4-5 and L5-S1. No subluxation is seen in the lumbar spine. The vertebral body heights are maintained. Mild degenerative disc disease is seen throughout the lumbar spine. us Remberto Packer MD DIAGNOSTIC IMAGING ORDERABLES Fi nal Result documented in this encounter Visit Diagnoses Diagnosis Chronic low back pain without sciatica, unspecified back pain laterality Chronic low back pain without sciatica, unspecified back pain laterality documented in this encounter Care Teams Remanufacturing Technician Relationship Specialty Start Date End Date Elgin Chan [place] [phone] PCP - General Family Practice 06/26/21 documented as of this encounter
--- OUTSIDE RECORDS SUMMARY | 2024-11-14 12:47 | XMS_ITS | Clinical Summary ---
Author Organization [facility] Address [address] [address] Care Team Providers Care Lead Installer Name Role Phone Elgin Chan MD Primary Care Provide r Allergies Active Allergy Reactions Criticality Noted Date Comments Metronidazole Hives High 09/13/2010 Other reaction(s): Hives Medications diphenhydrAMINE (BENADRYL) 25 mg tabletIndications:Po st-nasal drainage Take 1 Tablet (25 mg) by mouth 4 times daily as needed for Allergies. 1 Tablet 10/01/19 22 Active Additional Information Patient taking differently:25 mg OralNIGHTLY PRN, Allergies, Reported on 04/15/2024 cholecalciferol, Vitamin D3, 50 mcg (2,000 unit) TabletIndications:Vi tamin D deficiency Take 1 Tablet (2,000 Units) by mouth daily. 12/02/19 23 Active ascorbic acid, vitamin C, (Vitamin C) 500 mg tabletIndications:Ir on deficiency anemia, unspecified iron deficiency anemia type Take 1 Tablet (500 mg) by mouth daily before breakfast. 12/02/19 23 Active ibuprofen 100 mg chewable tablet Take by mouth. PRN Active vitamin B complex (B COMPLEX 1 ORAL) Take by mouth daily. Active Sodium Chloride 1,000 mg Tablet, Soluble Take 2,000 mg by mouth 2 times daily with meals. Patient taking 4 tablets daily Active fluticasone propionate (FLONASE) 50 mcg/spray [place], Suspension nasal inhalerIndications:P ost-nasal drainage Administer 1 [place] in each nostril 2 times daily as needed for Allergies or Rhinitis. 16 Gram 5 05/09/20 23 Active clotrimazole (LOTRIMIN) 1 % CreamIndications:Rin gworm of body Apply to affected area 2 times daily. 45 Gram 05/16/20 23 Active clotrimazole-betamet hasone (LOTRISONE) 1-0.05 % CreamIndications:Justin matitis APPLY to affected area TWICE DAILY 45 Gram 3 09/25/19 24 Active nystatin (MYCOSTATIN) 100,000 unit/mL suspensionIndication s:Oral thrush Take 5 mL (500,000 Units) by mouth 4 times daily. Swish in mouth and hold for 15 seconds then swallow 60 mL 1 12/26/19 24 Active triamcinolone acetonide (KENALOG) 0.5 % CreamIndications:Juan h Apply to affected area 2 times daily. 15 Gram 3 01/29/20 24 Active potassium chloride (KLOR-CON M10) 10 mEq Extended Release tablet Take 1 Tablet (10 mEq) by mouth every other day. 45 Tablet 1 04/22/20 24 Active diclofenac sodium (VOLTAREN) 1 % gelIndications:Chron ic pain of left knee Apply 4 Grams to affected area 4 times daily. 04/28/20 24 Active losartan (COZAAR) 25 mg tabletIndications:Hy ponatremia,Primary hypertension,Bilater al lower extremity edema,Mitral valve insufficiency, unspecified etiology,Family history of coronary artery disease,Varicose veins of both lower extremities, unspecified whether complicated,Tricuspi d valve insufficiency, unspecified etiology,Dyslipidemi a,Abnormal electrocardiogram (ECG) (EKG) Take 1 Tablet (25 mg) by mouth 2 times daily. 180 Tablet 1 04/28/20 24 Active HYDROcodone-acetamin ophen (NORCO) 10-325 mg TabletIndications:Ch ronic upper back pain,Chronic left-sided low back pain with left-sided sciatica Take 0.5-1 Tablets by mouth 2 times daily as needed for Pain, Moderate. Max Daily Amount: 2 Tablets 60 Tablet 04/28/20 24 Active azelastine (ASTELIN) 137 mcg/actuation nasal sprayIndications:Pos t-nasal drainage Administer 2 Sprays in each nostril 2 times daily. 30 mL 3 05/07/20 24 Active furosemide (Lasix) 20 mg tabletIndications:En counter for monitoring diuretic therapy Take 0.5 Tablets (10 mg) by mouth daily. 45 Tablet 1 07/20/20 24 Active ferrous sulfate 325 mg (65 mg iron) tabletIndications:Ir on deficiency anemia, unspecified iron deficiency anemia type Take 1 Tablet (325 mg) by mouth daily. 90 Tablet 1 07/21/20 24 Active pregabalin (LYRICA) 150 mg CapsuleIndications:P ain in both lower extremities,Chronic upper back pain,Chronic left-sided low back pain with left-sided sciatica,Chronic pain disorder TAKE ONE CAPSULE BY MOUTH THREE TIMES DAILY 270 Capsule 1 07/25/20 24 Active teriparatide 20 mcg/dose (620mcg/2.48mL) Pen InjectorIndications: Osteoporosis without current pathological fracture, unspecified osteoporosis type Inject 20 mcg by subcutaneous injection daily. 2.48 mL 6 08/17/19 25 Active trospium (SANCTURA) 20 mg TabletIndications:Ov eractive bladder TAKE ONE TABLET BY MOUTH TWICE DAILY 180 Tablet 09/02/19 25 Active pramipexole (MIRAPEX) 0.5 mg tabletIndications:Re stless leg syndrome TAKE ONE TABLET BY MOUTH 2-3 times DAILY NEEDED for restless legs 180 Tablet 10/04/19 25 Active Active Problems Patient Care Coordination No te Formatting of this note migh t be different from the original. Physical 01/29/22, 02/05/23 COMPS: 07/01/11... 07/13/12... 11/27/16... 02/01/19.... - Dr Damon, 04/28/24, Control substance agreement with Dr Murray 06/11/23 Problem Noted Date Diagnosed Date Neuroforaminal stenosis of cervical spine 2023 Osteoporosis without current pathological fractu re 06/21/2024 Stenosis, cervical spine 05/24/2024 Chronic hip pain after total replacement of left hip joint 12/17/23 Dr Lei Ruiz 04/28/2024 Lymphedema 03/30/2024 Chronic venous hypertension involving both sides 02/05/2024 Nonrheumatic mitral valve regurgitation 04/07/20 Overactive bladder 02/05/2023 Restless leg syndrome 09/11/2022 Chronic upper back pain 01/29/2022 Chronic left-sided low back pain with left-sided sciatica 01/29/2022 Hyponatremia 01/29/2022 DDD (degenerative disc disease), cervical 2020 Encounter for annual wellness exam in Medicare p atient 06/26/2021 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 Varicose veins of both lower extremities 019 Hard of hearing 03/31/2019 Nocturia 05/19/2018 Urge incontinence 05/19/2018 Urinary frequency 05/19/2018 Anemia 02/16/2018 Closed displaced fracture of lower epiphysis of left femur 02/13/2018 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 03/05/2016 Primary osteoarthritis of fi rst carpometacarpal joint of right hand 12/06/2015 Overview (06/26/2021): Added automatically from request for surgery [id number] Added automatically from request for surgery [id number] Bilateral hand pain 12/06/2015 Numbness and tingling in both hands 12/06/2015 Carpal tunnel syndrome on both sides 12/06/2015 Acquired deformity of spine 04/04/2015 History of arthrodesis 02/07/2015 Closed fracture of thoracic vertebra 02/07/2015 Acquired kyphosis 01/27/2015 DJD (degenerative joint disease) of lumbar spine 12/31/2010 Inflammatory bowel disease 12/31/2010 Vitamin D deficiency 12/31/2010 Lower extremity pain 09/13/2010 Overview (06/26/2021): RADICULAR RIGHT LOWER EXTREMITY PAIN RADICULAR RIGHT LOWER EXTREMITY PAIN Chronic pain disorder 09/13/2010 Osteopenia 09/13/2010 Female hypogonadism syndrome 09/13/2010 Breast calcification, left Resolved Problems Problem Noted Date Diagnosed Date Resolved Date Non-pressure chronic ulcer o f left lower leg with fat layer exposed 02/05/2024 05/30/2024 ISTAP type 3 skin tear of left lower leg 02/05/2024 02/19/2024 Dermatitis 02/05/2024 03/30/2024 Family history of coronary artery disease 04/01/2019 08/30/2024 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 03/31/2019 08/30/2024 Pain in joint, shoulder region 01/25/2012 01/11/2015 Neck pain, acute 11/22/2011 01/11/2015 Vaginal discharge 09/13/2010 01/11/2015 Encounters Date Type Department Care Team Description 10/14/2024 Refill [facility] Internal Medicine [address] [place] [address] Elgin Chan MD Overactive bladder 10/13/[address] [place] [address] Phylicia Strange, SERVICE CENTER TECHNICIAN No Show 10/04/2024 Refill [facility] Internal Medicine [address] [place] [address] Elign Chan MD Restless leg syndrome 09/20/2024 1:43 PM XEROX MACHINE OPERATOR - 09/20/2024 11:59 PM XEROX MACHINE OPERATOR Hospital Encounter [facility] CT Scan [address] [place] [phone] Randell Corona MD Discharge Disposition: Home or Self Care 09/20/2024 1:40 PM XEROX MACHINE OPERATOR - 09/20/2024 11:59 PM XEROX MACHINE OPERATOR Hospital Encounter [facility] CT Scan [address] [place] [phone] Randell Corona MD Discharge Disposition: Home or Self Care 09/16/2024 Ancillary Orders [facility] Central Test [address] [place] [address] Randell Corona MD Fusion of spine, thoracic region (Primary Dx); Acquired kyphosis 09/06/[address] [place] [address] Lore Fowler APN 09/02/2024 Refill [facility] Internal Medicine [address] [place] [address] Elgin Chan MD Overactive bladder 08/26/2024 9:10 AM XEROX MACHINE OPERATOR - 08/26/2024 11:59 PM XEROX MACHINE OPERATOR Hospital Encounter [facility] Hyperbaric Outpatient Wound [address] [place] [address] Jenise Spann MD Discharge Disposition: Home or Self Care 08/25/2024 1:30 PM XEROX MACHINE OPERATOR - 08/25/2024 11:59 PM XEROX MACHINE OPERATOR Hospital Encounter [facility] General Laboratory Services [address] [address] Bryson Dumont MD Discharge Disposition: Home or Self Care 08/25/2024 9:15 AM XEROX MACHINE OPERATOR Nurse Only [facility] Internal Medicine [address] [address] 08/17/2024 Orders Only [facility] Internal Medicine [address] [address] Elgin Chan MD Osteoporosis without current pathological fracture, unspecified osteoporosis type (Primary Dx) 08/17/2024 Telephone [facility] Internal Medicine [address] [address] Elgin Chan MD Medication Refill from Last 3 Months Immunizations Immunization Administration Dates Next Due (PNEUMOVAX 23)(50 YRS UP) PN EUMOCOCCAL POLYSACCHARIDE (PPV23) 0.5 ML, IM 07/13/2012 Influenza A (H1N1) Vaccine IM 04/24/2010 Influenza Seasonal Unspecifi ed Formulation IM 06/22/2020,06/02/2018,09/08/2017,04/24,04/21/2009 Influenza Vaccine High Dose 65+ Yrs IM 9 Influenza Vaccine Split 3+ Yrs IM 04/27/2013,10/2011,07/01/2011 PREVNAR (PCV13) pneumococcal 13-valent conjugate Vaccine 06/22/2020 Family History Medical History Relation Name Comments Diabetes Brother 1 Heart Disease Brother 1 Other Brother 1 NEUROPATHY AND CHF Unknown Brother 2 Heart Disease Father Hypertension Father Heart Disease Mother Thyroid Disease Mother Relation Name Status Comments Brother 1 (Age 66) COMPLICATI ONS OF DIABETES Brother 2 Alive PT HAS NO COMMU NICATION WITH BROTHER Father (Age 87) HYPERTENSI VE HEART DISEASE AND HEART FAILURE Mother (Age 78) QUESTIONAB LE ANEURSYM AND KNOWN VALVE DYSFUNCTION Sister none Social History Tobacco Use Types Packs/Day Years Used Date Smoking Tobacco: Never Cigarettes Smokeless Tobacco: Never Alcohol Use Standard Drinks/Week Comments Yes 0 (1 standard drink = 0.6 oz pur e alcohol) social Comments No Sex and Gender Information Value Date Recorded Sex Assigned at Not on file Legal Sex Female 11:13 AM XEROX MACHINE OPERATOR Gender Identity Not on file Sexual Orientation Not on file Occupation Industry Job Start Date Job End Date Not on file Not on file Not on file Not on file Last Filed Vital Signs Vital Sign Reading Time Taken Comments Blood Pressure 189/80 08/26/2024 10:40 AM XEROX MACHINE OPERATOR Pulse 69 08/26/2024 10:40 AM XEROX MACHINE OPERATOR Temperature 36.2 C (97.1 F) 08/26/2024 10:40 AM XEROX MACHINE OPERATOR Respiratory Rate 20 08/26/2024 10:4 0 AM XEROX MACHINE OPERATOR Oxygen Saturation 99% 07/13/2024 1:07 PM XEROX MACHINE OPERATOR Inhaled Oxygen Concentration - - Weight 65.2 kg (143 lb 11.2 oz) 07/13/2024 1:07 PM XEROX MACHINE OPERATOR Height 167.6 cm (5' 6 ) 07/13/2024 1:07 PM XEROX MACHINE OPERATOR Body Mass Index 23.19 07/13/2024 1:07 PM XEROX MACHINE OPERATOR Plan of Treatment Upcoming Encounters Date Type Department Care Team (Late st Contact Info) Description 02/23/2025 8:00 AM CDT Appointment [facility] W[facility] [place] [address] [place] [address] Jenise Spann MD [address] [place] [address] Health Maintenance Due Date Last Done Comments DTAP/TDAP/TD VACCINES (1 - Tdap) 1966 ZOSTER VACCINE (1 of 2) 1997 RSV VACCINE (60+ or ) (1 - 1-dose 75+ series) 2022 INFLUENZA VACCINE (#1) 2024 0, 06/23/2019, 06/02/2018, Additional history exists OSTEOPOROSIS SCREENING 07/23/2026 4, 07/23/2024, 06/09/2024, Additional history exists COLORECTAL SCREENING Discontinued 10/11/2010 Colorectal Cancer Screening Discontinued FIT/FOBT Q 1 year Discontinued 07/14/2012, 07/01/2011 PNEUMOCOCCAL VACCINE 50+ YEARS Completed 06/22/2020 , 07/13/2012 FIT-DNA Q 3 years Discontinued Flex Sig/CT Colonography Q 5 years Discontinued Medical Devices Implanted Type Area Shop Clerk Device Identifier Shelf Expiration Date Model / Serial / Lot Blade Hlcl Tfn Adv 85mm [id number] - Chi - [id number] Implanted:Qty: 1 on 02/13/2018 by Aisha Parisi MD at [facility] HOT SP Nail Left: Femur CHI_SYNTHES:SYNTH ES [employer] 09/10/2027 [id number] S / / [id number] Nail Tfn Adv [id number] 130d 04.037.157s - Chi - [id number] Implanted:Qty: 1 on 02/13/2018 by Aisha Parisi MD at [facility] HOT SP Nail Left: Femur CHI_SYNTHES:SYNTH ES [employer] 11/09/2027 04.037.157 S / / [id number] Screw Loc Strdr 5x40mm 04.005.530s - Chi - [id number] Implanted:Qty: 1 on 02/13/2018 by Aisha Parisi MD at [facility] SP Screw Left: Femur CHI_SYNTHES:SYNTH ES [employer] 11/08/2026 04.005.530 S / / [id number] Procedures Procedure Name Priority Date/Time Associated Diagnosis Comments CT LUMBAR SPINE WO CONTRAST Routine 09/20/2024 3:45 PM XEROX MACHINE OPERATOR Acquired kyphosis CT THORACIC SPINE WO CONTRAST Routine 09/20/2024 3:44 PM XEROX MACHINE OPERATOR Fusion of spine, thoracic region URINALYSIS W/REFLEX MICROSCOPIC Routine 08/25/2024 1:36 PM XEROX MACHINE OPERATOR Pain Hypo-osmolality and hyponatremia OSMOLALITY, URINE Routine 08/25/2024 1:3 6 PM XEROX MACHINE OPERATOR Pain Hypo-osmolality and hyponatremia OSMOLALITY Routine 08/25/2024 1:36 PM XEROX MACHINE OPERATOR Pain Hypo-osmolality and hyponatremia SODIUM, RANDOM URINE Routine 08/25/2024 1:36 PM XEROX MACHINE OPERATOR Pain Hypo-osmolality and hyponatremia BASIC METABOLIC PANEL Routine 08/25/2024 1:36 PM XEROX MACHINE OPERATOR Pain Hypo-osmolality and hyponatremia XR DEXA BONE DENSITY AXIAL 1 OR MORE SITES Routine 06/09/2024 8:27 AM CDT Postmenopausal osteoporosis POC OCCULT BLOOD 1 CARD Routine 07/14/2012 Screen for colon cancer from Last 3 Months or Most Recently Relevant to Health Maintenance Results * CT LUMBAR SPINE WO CONTRAST (09/20/2024 3:45 PM XEROX MACHINE OPERATOR) Anatomical Region Laterality Modality Spine Computed Tomogra phy 09/20/2024 3:45 PM XEROX MACHINE OPERATOR Impressions 09/20/2024 3:58 PM XEROX MACHINE OPERATOR IMPRESSION: 1. No acute osseous abnormality is present in the lumbar spine. 2. There has been fusion of the thoracolumbar and lumbosacral spine. Laminectomy changes are seen on the left from L3 to L5. 3. Mild dextroscoliosis of the lumbar spine. 4. Old superior plate fracture of L1 with minimal loss of vertebral body height. Narrative 09/20/2024 3:58 PM XEROX MACHINE OPERATOR CT lumbar spine without contrast with reconstructions 09/20/2024 COMPARISON: 02/09/2015 HISTORY: 79-year-old female with kyphosis of the spine. TECHNIQUE: Axial images were performed through the lumbar spine without contrast. Sagittal and coronal reformatted images were obtained. FINDINGS: No acute fracture is seen. There is an old superior plate compression fracture of L1 There is dextroscoliosis of the lumbar spine with apex at L3. There has been fusion of the thoracolumbar spine and lumbosacral spine with bilateral pedicle screws at each level in the lumbar spine with the exception of L3 with there is no screw on the right. There has been fusion of the bilateral sacroiliac joints. No identifiable defects are seen in the hardware. Disc expanders are seen at L4-5 and L5-S1 where there is mild loss of height at each level. There is mild loss of height throughout the L1-2 disc and on the left at L2-3 and L3-4. Laminectomy changes are seen on the left at L3-4, L4-5 and L5-S1. No identifiable spinal canal stenosis or neural foraminal narrowing is seen; however, evaluation is limited due to artifact. The soft tissues demonstrate aortic atherosclerosis.. Procedure Note Carlo Tyson MD - 09/20/2024 CT lumbar spine without contrast with reconstructions 09/20/2024 COMPARISON: 02/09/2015 HISTORY: 79-year-old female with kyphosis of the spine. TECHNIQUE: Axial images were performed through the lumbar spine without contrast. Sagittal and coronal reformatted images were obtained. FINDINGS: No acute fracture is seen. There is an old superior plate compression fracture of L1 There is dextroscoliosis of the lumbar spine with apex at L3. There has been fusion of the thoracolumbar spine and lumbosacral spine with bilateral pedicle screws at each level in the lumbar spine with the exception of L3 with there is no screw on the right. There has been fusion of the bilateral sacroiliac joints. No identifiable defects are seen in the hardware. Disc expanders are seen at L4-5 and L5-S1 where there is mild loss of height at each level. There is mild loss of height throughout the L1-2 disc and on the left at L2-3 and L3-4. Laminectomy changes are seen on the left at L3-4, L4-5 and L5-S1. No identifiable spinal canal stenosis or neural foraminal narrowing is seen; however, evaluation is limited due to artifact. The soft tissues demonstrate aortic atherosclerosis.. IMPRESSION: 1. No acute osseous abnormality is present in the lumbar spine. 2. There has been fusion of the thoracolumbar and lumbosacral spine. Laminectomy changes are seen on the left from L3 to L5. 3. Mild dextroscoliosis of the lumbar spine. 4. Old superior plate fracture of L1 with minimal loss of vertebral body height. us Randell Corona MD CT ORDERABLES Monie l Result * CT THORACIC SPINE WO CONTRAST (09/20/2024 3:44 PM XEROX MACHINE OPERATOR) Anatomical Region Laterality Modality Spine Computed Tomogra phy 09/20/2024 3:44 PM XEROX MACHINE OPERATOR Impressions 09/20/2024 3:54 PM XEROX MACHINE OPERATOR IMPRESSION: 1. No acute osseous abnormality is present in the thoracic spine. 2. There has been fusion of the thoracic spine into the upper lumbar spine extending from T3 inferiorly. The alignment is fairly well preserved. 3. There are remote mild superior plate compression fractures of T11 and L1. Narrative 09/20/2024 3:54 PM XEROX MACHINE OPERATOR CT thoracic spine without contrast with reconstructions 09/20/2024 COMPARISON: 02/09/2015 HISTORY: 79-year-old female with a history of back pain and spine fusion. TECHNIQUE: Axial images were performed through the thoracic spine without contrast. Sagittal and coronal reformatted images were obtained. FINDINGS: No acute fracture is seen. Since the previous study there has been extension of the spinal fusion hardware which now extends from T3 into the lumbar spine. There are pedicle screws bilaterally at each level from T3 to T12 with the exception of T3, T4, T6 and T8 where there is no screw on the right. The hardware is intact. There are remote superior plate compression fractures of T11 and L1 with minimal loss of vertebral body height. The disc spaces are fairly well preserved. There is no identifiable thoracic spinal canal stenosis or neural foraminal narrowing; however, evaluation is significantly limited due to artifact. Procedure Note Carlo Tyson MD - 09/20/2024 CT thoracic spine without contrast with reconstructions 09/20/2024 COMPARISON: 02/09/2015 HISTORY: 79-year-old female with a history of back pain and spine fusion. TECHNIQUE: Axial images were performed through the thoracic spine without contrast. Sagittal and coronal reformatted images were obtained. FINDINGS: No acute fracture is seen. Since the previous study there has been extension of the spinal fusion hardware which now extends from T3 into the lumbar spine. There are pedicle screws bilaterally at each level from T3 to T12 with the exception of T3, T4, T6 and T8 where there is no screw on the right. The hardware is intact. There are remote superior plate compression fractures of T11 and L1 with minimal loss of vertebral body height. The disc spaces are fairly well preserved. There is no identifiable thoracic spinal canal stenosis or neural foraminal narrowing; however, evaluation is significantly limited due to artifact. IMPRESSION: 1. No acute osseous abnormality is present in the thoracic spine. 2. There has been fusion of the thoracic spine into the upper lumbar spine extending from T3 inferiorly. The alignment is fairly well preserved. 3. There are remote mild superior plate compression fractures of T11 and L1. Randell Corona MD CT ORDERABLES Monie l Result * SODIUM, RANDOM URINE (08/25/2024 1:36 PM XEROX MACHINE OPERATOR) SODIUM, URINE 123 mmol/L 08/25/2024 2:00 PM XEROX MACHINE OPERATOR [facility] Urine URINE SPECIMEN OBTAINED BY CLEAN CATCH PROCEDURE / Unknown Collection / Unknown 08/25/2024 1:36 PM XEROX MACHINE OPERATOR 08/25/2024 1:40 PM XEROX MACHINE OPERATOR Bryson Dumont MD URINE ORDERABLES Final Result [facility] CLIA #[id number] [address] [place] [id number] * OSMOLALITY, URINE (08/25/2024 1:36 PM XEROX MACHINE OPERATOR) OSMOLALITY, URINE 527 mOsmol/kg 08/27/2024 4:11 PM XEROX MACHINE OPERATOR [facility] Comment: 24 hr : 300 - 900 Random: 50 - 1400 After 12hr fluid restriction: >850 Urine URINE SPECIMEN OBTAINED BY CLEAN CATCH PROCEDURE / Unknown Collection / Unknown 08/25/2024 1:36 PM XEROX MACHINE OPERATOR 08/25/2024 6:36 PM XEROX MACHINE OPERATOR Narrative [facility] - 08/27/2024 4:11 PM XEROX MACHINE OPERATOR Performed at: 01 - [facility] [address] [place] [address] [address], [place], [place] [id number] Pipeline Dispatch Operator: Rae Troy MD, Phone: [phone] Bryson Dumont MD URINE ORDERABLES Final Result [facility] [address] [facility], [address] [place] [address], * URINALYSIS WITH REFLEX MICROSCOPIC (08/25/2024 1:36 PM XEROX MACHINE OPERATOR) COLOR UA Yellow Pale to dark yellow 08/25/2024 1:54 PM XEROX MACHINE OPERATOR [facility] CLARITY UA Clear Clear 08/25/2024 1:54 PM XEROX MACHINE OPERATOR [facility] SPECIFIC GRAVITY UA 1.015 1.003 - 1.035 08/25/2024 1:54 PM XEROX MACHINE OPERATOR [facility] PH UA 6.0 5.0 - 8.0 08/25/2024 1:54 PM XEROX MACHINE OPERATOR [facility] LEUKOCYTE ESTERASE UA Negative Negative 08/25/2024 1:54 PM XEROX MACHINE OPERATOR [facility] NITRITE UA Negative Negative 08/25/2024 1:54 PM XEROX MACHINE OPERATOR [facility] PROTEIN UA Negative Negative 08/25/2024 1:54 PM XEROX MACHINE OPERATOR [facility] GLUCOSE UA Negative Negative 08/25/2024 1:54 PM [facility] KETONES UA Negative Negative 08/25/2024 1:54 PM [facility] UROBILINOGEN UA 0.2 <2.0 mg/dL 1:54 PM XEROX MACHINE OPERATOR [facility] BILIRUBIN UA Negative Negative 08/25/2024 1:54 PM XEROX MACHINE OPERATOR [facility] BLOOD UA Negative Negative 08/25/2024 1:54 PM [facility] Urine URINE SPECIMEN OBTAINED BY CLEAN CATCH PROCEDURE / Unknown Collection / Unknown 08/25/2024 1:36 PM XEROX MACHINE OPERATOR 08/25/2024 1:40 PM XEROX MACHINE OPERATOR us Bryson Dumont MD URINE ORDERABLES Final Result Performing Organization Address City/[facility]/ZIP Co de Phone Number [facility] CLIA #[id number] [address] [place] [id number] * OSMOLALITY (08/25/2024 1:36 PM XEROX MACHINE OPERATOR) Pathologist [facility] OSMOLALITY 283 280 - 301 mOsmol/kg 08/26/2024 4:11 PM XEROX MACHINE OPERATOR [facility] Blood Collection / Unknown 08/25/2024 1:36 PM XEROX MACHINE OPERATOR 08/25/2024 3:20 PM XEROX MACHINE OPERATOR Narrative [facility] - 08/26/2024 4:11 PM XEROX MACHINE OPERATOR Performed at: [facility] [place] [id number] Pipeline Dispatch Operator: Rae Troy MD, Phone: [phone] us Bryson Dumont MD CHEMISTRY ORDERABLES Final Resu lt Performing Organization Address City/[facility]/ZIP Co de Phone Number [facility] [address] [place] [address], * (ABNORMAL) BASIC METABOLIC PANEL (08/25/2024 1:36 PM XEROX MACHINE OPERATOR) SODIUM 135(L) 136 - 145 mmol/L 08/26/2024 9:22 AM XEROX MACHINE OPERATOR [facility] POTASSIUM 4.4 3.5 - 5.1 mmol/L 08/26/2024 9:22 AM XEROX MACHINE OPERATOR [facility] CHLORIDE 102 98 - 107 mmol/L 08/26/2024 9:22 AM XEROX MACHINE OPERATOR [facility] CO2 24 22 - 29 mmol/L 08/26/2024 9:22 AM XEROX MACHINE OPERATOR [facility] CALCIUM 9.5 8.4 - 10.2 mg/dL 08/26/2024 9:22 AM XEROX MACHINE OPERATOR [facility] BUN 20 7 - 26 mg/dL 08/26/2024 9:22 AM [facility] CREATININE 0.72 0.57 - 1.11 mg/dL 08/26/2024 9:22 AM [facility] GLUCOSE 91 74 - 99 mg/dL 08/26/2024 9:22 AM [facility] ANION GAP 9 8 - 16 mmol/L 08/26/2024 9:22 AM [facility] GFR >60 mL/min/1.7 3 sq meter 08/26/2024 9:22 AM [facility] Comment:eGFR calculated with 2020 CKD-EPI equation. Vegetarian diet, extremely high or low muscle mass, and may affect results. Cystatin C with Glomerular Filtration Rate is a suitable alternative for these patients. 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 2. Osteopenia in the left femoral neck. Osteopenia in the left total femur. 3. 10 year probability of fracture is 19.7% risk of any fracture and 5.2% risk of hip fracture. 4. Since the prior study there is significant decrease in bone mineral density in the radius. Narrative 06/09/2024 9:04 AM CDT EXAM: XR DEXA BONE DENSITY AXIAL 1 OR MORE SITES Clinical information: [facility] Screening Comparison: 10/22/2022 RADIUS UD: Bone density: 0.284 g/cm2 (previously 0.311 g/cm2) T score : -4.1 Z score: -1.6 WHO Classification: Osteoporosis LEFT FEMORAL NECK Bone density: 0.766 g/cm2 (previously 0.792 g/cm2) T score : -2.0 Z score: 0.1 WHO Classification: Osteopenia LEFT TOTAL FEMUR Bone density: 0.724 g/cm2 (previously 0.737 g/cm2) T score : -2.3 Z score: -0.4 WHO Classification: Osteopenia The WHO defines osteopenia as -1.0 to - 2.5 SD below peak BMD (T score) and osteoporosis as more then -2.5 SD below peak BMD. The risk of osteoporotic fracture doubles for each -1.0 SD below peak BMD. Procedure Note Andreas Martin MD - 06/09/2024 EXAM: XR DEXA BONE DENSITY AXIAL 1 OR MORE SITES Clinical information: [facility] Screening Comparison: 10/22/2022 RADIUS UD: Bone density: 0.284 g/cm2 (previously 0.311 g/cm2) T score : -4.1 Z score: -1.6 WHO Classification: Osteoporosis LEFT FEMORAL NECK Bone density: 0.766 g/cm2 (previously 0.792 g/cm2) T score : -2.0 Z score: 0.1 WHO Classification: Osteopenia LEFT TOTAL FEMUR Bone density: 0.724 g/cm2 (previously 0.737 g/cm2) T score : -2.3 Z score: -0.4 WHO Classification: Osteopenia The WHO defines osteopenia as -1.0 to - 2.5 SD below peak BMD (T score) and osteoporosis as more then -2.5 SD below peak BMD. The risk of osteoporotic fracture doubles for each -1.0 SD below peak BMD. IMPRESSION: 1. 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 2. Osteopenia in the left femoral neck. Osteopenia in the left total femur. 3. 10 year probability of fracture is 19.7% risk of any fracture and 5.2% risk of hip fracture. 4. Since the prior study there is significant decrease in bone mineral density in the radius. Randell Corona MD DIAGNOSTIC IMAGING O RDERABLES Final Result * POC OCCULT BLOOD 1 CARD (07/14/2012) OCCULT BLOOD #1 Negative Negative Stool specimen (specimen) Noemi Angel MD POINT OF CARE TESTING Final Result from Last 3 Months or Most Recently Relevant to Health Maintenance Insurance MEDICARE PART A AND B [facility] Advance Directives For more information, please contact: [phone] * Full Code (Latest Code Status on File) Date Activated Date Inactivated Comments 02/13/2018 10:20 PM 02/17/2018 3:20 PM * Full Code Date Activated Date Inactivated Comments 02/13/2018 7:16 PM 02/13/2018 10:20 PM * Full Code Date Activated Date Inactivated Comments 02/13/2018 4:45 PM 02/13/2018 7:16 PM * Full Code Date Activated Date Inactivated Comments 11/04/2016 10:27 AM 11/04/2016 3:08 PM * Full Code Date Activated Date Inactivated Comments 11/04/2016 6:58 AM 11/04/2016 10:27 AM Care Teams Lead Installer Relationship Specialty Start Date End Date Elgin Chan MD [address] [place] [id number] PCP - General Family Practice 06/26/21
--- OUTSIDE RECORDS SUMMARY | 2024-11-14 12:47 | XMS_ITS | Data Portability ---
Author Organization [facility], [facility] Address [address] [facility] [address] [place] [address] Care Team Providers Care Pre Wave Assembler Name Role Phone EM DWYER Referring Provider JN RITCHIE Primary Care Provider [phone] Assessment No assessment recorded. Plan of Treatment Reminders Order Date Submit Date Provider Last Modified By Organization Details Last Modified Time Details Appointments None recorded. Lab None recorded. Referral None recorded. Procedures None recorded. Surgeries None recorded. Imaging None recorded. Medication Orders Evenity 210 mg/2.34 mL (105 mg/1.17 mL x 2) subcutaneou s syringe 2024 025 [email or web address] Not available 5 10:39:55 Evenity 210 mg/2.34 mL (105 mg/1.17 mL x 2) subcutaneou s syringe 2024 025 [email or web address] Not available 5 12:58:26 Patient TargetsNo targets recorded. Patient Instructions Encounter Date Encounter Id Patient Instructions Last Modified By Organization Details Last Modified Time 08/02/2024 [id number] osteoporosis: care instructions Not available 08/05/2024 08:43:04 Patient was seen evaluated in clinic today for bone health. We discussed bone health and causes of osteoporosis/oste openia including decreased calcium and vitamin D as well as menopause. We discussed low impact activity to improve bone health. Patient was provided with information regarding different types of food that she can eat to improve calcium intake. We discussed suggested recommended daily intake of calcium and vitamin D. Treatment for osteoporosis was discussed. We discussed both Evenity which is a bone builder as well as Prolia. I educated the patient on both of these medications including risks, benefits, potential side effects. Patient denies any history of LA or stroke. Will call once amgen benefits ran. Patient is switching to [employer] in August. Will run new benefits with new insurance. Not available 08/05/2024 08:44:10 09/02/2024 [id number] osteoporosis: care instructions Not available 09/02/2024 12:09:39 Patient was seen and examined in clinic today. Patient does have severe osteoporosis with a T score of -2.7. She does have a history of fractures as well. We were able to get her insurance to approve the Evenity injections. After lengthy discussion we advised patient will need to return once a month for Evenity injections for up to 12 treatments. After that we will maintain her Prolia. We will plan for another bone density after finishing Evenity treatment. Risk and benefits were discussed with the Evenity treatment program, patient elected to continue on with injection as planned. Patient tolerated first Evenity injection well. Patient was monitored for 15 minutes. See procedure note for further documentation. Not available 09/02/2024 12:12:04 10/01/2024 [id number] osteoporosis: care instructions Not available 10/01/2024 10:33:02 Patient was seen and examined in clinic today. Patient does have severe osteoporosis with a T score of -2.7. She does have a history of fractures as well. We were able to get her insurance to approve the Evenity injections. After lengthy discussion we advised patient will need to return once a month for Evenity injections for up to 12 treatments. After that we will maintain her Prolia. We will plan for another bone density after finishing Evenity treatment. Risk and benefits were discussed with the Evenity treatment program, patient elected to continue on with injection as planned. Patient tolerated second Evenity injection well. Patient was monitored for 15 minutes. See procedure note for further documentation. Not available 10/01/2024 10:33:12 Reason for Referral None Reported. Results Created Date Observation Date Name Description Value Unit Range Abnormal Flag Note LastModifiedBy Organization Detail LastModifiedTime 08/03/20 24 08/03/2024 CALCI UM MEASU REMEN T (MASS /VOLU ME) calcium measurement (mass/volume ) 10.1 mg/dL 8.5-10 .1 normal Not Available [facility] [address] [place], [address], 08/03/2024 20:17:53 08/03/20 24 08/03/2024 SERUM OR PLASM A TOTAL COMBI ALIRIO 25-HY DROXY VITAM IN D2 AND 25-HY DROXY VITAM IN D3 MEASU REMEN T (MASS /VOLU ME) serum or plasma total combined 25-hydroxyvi tamin D2 and 25-hydroxyvi priti 55.0 NG/mL 30.0-1 00.0 normal Not Available [facility] [address] [place], [address], 08/03/2024 20:17:53 Result Notes None recorded. Problems Name Problem SNOMED Code Status Onset Date Resolution Date Notes Provider Name and Address Organization Details Recorded Time Osteoporosis 71908004 Active 024 Selena Abarca [facility], [place] - [facility] 4 10:22:20 Problem Notes None recorded. Procedures Surgical History Date Name Laterality Status Provider Name and Address Organization Details Recorded Time 5 Evenity Injection completed Marivel Ray, [employer] [employer] [address] [place], [address], [place] [facility] 10/01/2024 10:32:58 5 Evenity Injection completed Marivelher Ray, [employer] [address] [place], [address], [place] [facility] 09/02/2024 11:46:01 Imaging Results None recorded. Procedure Notes None recorded. Medical Equipment None Reported. Allergies Allergen ID Allergen Name Allergen Category Reaction Reaction Severity Criticality Documentation Date Start Date Code Code System Note Provider Name and Address Organization Details Recorded Time 183486 Flagyl medicatio n Not available Not available Not available 08/02/2024 6 RxNorm Selena Tevin [place], [place] [facility] 4 10:22:00 Medications Name Sig Start Date Stop Date Status Note LastModified by Organization Details LastModified Time pc313 ket/nayla/dicl /cycl/eamon/t etra 10%/2%/3%/2% /6%/2% cream APPLY 1 TO 4 GRAMS DIRECTLY TO THE SITE OF PAIN 3 TO 4 TIMES DAILY active Not Available Not Available Not Available pain cream #313 grams APPLY 1 TO 4 GRAMS DIRECTLY TO THE SITE OF PAIN 3 TO 4 TIMES DAILY active Not Available Not Available Not Available amoxicillin 500 mg capsule active Not Available Not Available Not Available nystatin 100,000 unit/mL oral suspension take FIVE ML BY MOUTH FOUR TIMES DAILY swish in mouth and hold for 15 seconds THEN swallow active Not Available Not Available No t Available doxycycline hyclate 100 mg capsule TAKE ONE CAPSULE BY MOUTH TWICE DAILY FOR 10 DAYS active Not Available Not Available No t Available clindamycin HCl 300 mg capsule TAKE THREE CAPSULES BY MOUTH 1 hour prior to procedure active Not Available Not Available No t Available triamcinolon e acetonide 0.5 % topical cream APPLY TO AFFECTED AREA TWICE DAILY active Not Available Not Available No t Available ibuprofen 800 mg tablet TAKE ONE TABLET BY MOUTH THREE TIMES DAILY NEEDED FOR POST-OP PAIN FOR FIRST WEEK AFTER SURGERY ONLY active Not Available Not Available No t Available hydrocodone 5 mg-acetamino phen 325 mg tablet active Not Available Not Available Not Available ondansetron HCl 4 mg tablet TAKE ONE TABLET BY MOUTH THREE TIMES DAILY NEEDED FOR NAUSEA active Not Available Not Available N ot Available hydrocodone 10 mg-acetamino phen 325 mg tablet TAKE 1/2 TO 1 TABLET BY MOUTH TWICE DAILY NEEDED FOR PAIN; MAX DAILY DOSE 2 TABLETS active Not Available Not Available No t Available aspirin 81 mg tablet,delay ed release TAKE ONE TABLET BY MOUTH TWICE DAILY (post-op) active Not Available Not Available No t Available vancomycin 125 mg capsule TAKE ONE CAPSULE BY MOUTH FOUR TIMES DAILY FOR FOURTEEN DAYS active Not Available Not Available No t Available acyclovir 800 mg tablet active Not Available Not Available Not Available pramipexole 0.5 mg tablet TAKE ONE TABLET BY MOUTH 2-3 times DAILY NEEDED for restless legs active Not Available Not Available No t Available cefadroxil 500 mg capsule TAKE ONE CAPSULE BY MOUTH TWICE DAILY (POST-OP TOTAL JOINT REPLACEMENT SURGERY) active Not Available Not Available No t Available ciclopirox 8 % topical solution active Not Available Not Available Not Available calcitonin (salmon) 200 unit/actuati on nasal spray administer 1 spray in one nostril daily. alternate nostril with each dose. active Not Available Not Available No t Available hydrocodone 7.5 mg-acetamino phen 325 mg tablet TAKE ONE TABLET BY MOUTH EVERY 6 HOURS NEEDED active Not Available Not Available No t Available cephalexin 500 mg capsule TAKE ONE CAPSULE BY MOUTH FOUR TIMES DAILY active Not Available Not Available Not Available clotrimazole -betamethaso ne 1 %-0.05 % topical cream APPLY to affected area TWICE DAILY active Not Available Not Available No t Available naproxen 500 mg tablet,delay ed release active Not Available Not Available N ot Available losartan 25 mg tablet TAKE ONE TABLET BY MOUTH TWICE DAILY active Not Available Not Available No t Available Prevalite 4 gram powder for suspension in a packet DISSOLVE IN LIQUID AND DRINK BY MOUTH DAILY (DO NOT TAKE WITHIN 1-2 HOURS OF OTHER MEDICATIONS ) active Not Available Not Available No t Available hydrocortiso ne 2.5 % topical cream APPLY TO THE AFFECTED AREA(S) DAILY FOR 2 WEEKS, THEN NEEDED active Not Available Not Available No t Available mupirocin 2 % topical ointment apply to nostrils TWICE DAILY for FIVE days prior to surgery active Not Available Not Available N ot Available furosemide 20 mg tablet TAKE 1/2 TABLET BY MOUTH DAILY active Not Available Not Available Not Available azelastine 137 mcg (0.1 %) nasal spray instill two sprays in each nostril TWICE DAILY active Not Available Not Available Not Available budesonide DR - ER 3 mg capsule,promise yed,extended release active Not Available Not Available Not Available fluticasone propionate 50 mcg/actuatio n nasal spray,suspen daphnie administer 1 spray in each nostril 2 times DAILY NEEDED for allergies or rhinitis active Not Available Not Available Not Available tobramycin 0.3 %-dexamethas one 0.1 % eye drops,suspen daphnie active Not Available Not Available Not Available Estrace 0.01% (0.1 mg/gram) vaginal cream active Not Available Not Available Not Available potassium chloride ER 10 mEq tablet,exten ded release(part /cryst) TAKE ONE TABLET BY MOUTH EVERY OTHER DAY active Not Available Not Available No t Available trospium 20 mg tablet TAKE ONE TABLET BY MOUTH TWICE DAILY active Not Available Not Available No t Available ibandronate 150 mg tablet active Not Available Not Available Not Available pregabalin 150 mg capsule TAKE ONE CAPSULE BY MOUTH THREE TIMES DAILY active Not Available Not Available Not Available Lyrica 100 mg capsule active Not Available Not Available N ot Available sodium chloride 1,000 mg soluble tablet TAKE TWO TABLETS BY MOUTH TWICE DAILY (EVERY TWELVE HOURS) FOR 30 DAYS active Not Available Not Available No t Available Lialda 1.2 gram tablet,delay ed release active Not Available Not Available N ot Available FeroSul 325 mg (65 mg iron) tablet TAKE ONE TABLET BY MOUTH DAILY active Not Available Not Available Not Available Dificid 200 mg tablet TAKE ONE TABLET BY MOUTH TWICE DAILY FOR 10 DAYS active Not Available Not Available No t Available Evenity 210 mg/2.34 mL (105 mg/1.17 mL x 2) subcutaneous syringe Inject 210 mg by subcutaneou s route. 2024 active Not Available Not Available Not Avai lable Vitals Date Recorded Body height Body mass index (BMI) Body weight Heart rate Systolic blood pressure Diastolic blood pressure Provider Name and Address Organization Details Last Updated DateTime 157.48 cm 25.6 kg/m2 61926.9 3 g 68 /min 158 mm[Hg] 86 mm[Hg] [facility] 10:21:37 Date Recorded Body height Heart rate Systolic blood pressure Diastolic blood pressure Provider Name and Address Organization Details Last Updated DateTime 09/02/2024 157.48 cm 69 /min 146 mm[Hg] 78 mm[Hg] Mckean [facility] 09/02/2024 11:32:57 Date Recorded Body height Heart rate Systolic blood pressure Diastolic blood pressure Provider Name and Address Organization Details Last Updated DateTime 10/01/2024 157.48 cm 81 /min 124 mm[Hg] 80 mm[Hg] Yamileth [facility] 10/01/2024 10:24:57 Social History Question Answer Notes LastModified by Organizat ion Details LastModified Time Tobacco Smoking Status [facility] 10:23:28 Are You Blind Or Do You Have Difficulty Seeing? No Information not available 08/02/2024 What Is Your Level Of Caffeine Consumption? Moderate Information not available 08/02/2024 Are You Deaf Or Do You Have Serious Difficulty Hearing? Yes Information not available 08/02/2024 Which Of Your Hands Is Dominant? Right Information not available 08/02/2024 Do You Use Any Illicit Or Recreational Drugs? No Information not available 08/02/2024 Sex: Female Functional Status Question Answer Note LastModified by Organizat ion Details LastModified Time Do you have difficulty walking or climbing stairs? Yes Information not available 08/02/2024 Are you able to walk? YESASSIST Information not available 08/02/2024 Do you have difficulty doing errands alone? Yes Information not available 08/02/2024 Are you able to care for yourself? Yes Information not available 08/02/2024 Do you have difficulty dressing or bathing? No Information not available 08/02/2024 Mental Status Question Answer Note LastModified by Organization D etails LastModified Time Do you have difficulty concentrating, remembering or making decisions? No Information no t available 08/02/2024 Family History Relationship Description Onset Age of this Age Resolved Age Notes LastModified by Organization Details LastModified Time Father Hypertensive disorder Not available 10:22:52 Brother Diabetes mellitus Not available 10:23:00 Medical History Condition Response HIV or AIDS N Coronary Artery Disease N Gout N Muscle Pain Y Joint Pain or Swelling N Emphysema N Hernia N Mouth Sores N Hip pain when walking N Sexually Transmitted Disease N Lung Disease N Blood Clots N COPD N Depression N Wheezing N Pacemaker N Complication To Anesthesia N STOMACH OR GI ULCERS N Frailty N Heat or cold intolerance N Anxiety Disorder N Swelling of Ankles, Feet or Hands Y Gastric Reflux N Upper Back Pain N Arthritis Y Dysphagia N Frequent Urination N Cancer N Stroke N Leg or Foot Ulcers N Circulation Problems N Good Pastures N Headache N GERD N High Cholesterol N Peptic Ulcer (stomach or duodenal) N Muscular Dystrophy N Spitting up Blood N Rheumatoid Arthritis N Fibromyalgia N Dialysis N Leg cramps N Kidney Disease N Hiatal Hernia N RSV N Heart Problems N Memory Loss or Confusion N Mental Disorders N Shoulder Pain N MRSA - Chronic Infection N Poor Appetite N Migraines N Arm Pain N Multiple Sclerosis N Elevated Cholesterol N Chest Pain N Back Pain Y Heartburn N Difficulty Walking N Change in bowel habit Y Sleep Apnea (CPAP/BPAP/O2) N Heart Attack (LA) N Peripheral Vascular Disease (PVD) N Itching N Addiction N Rheumatic Fever N Bleeding Disorder N Blood Transfusions N Heart Rhythm Disorder N Seizures/Epilepsy N Heart Murmur N Ringing in Ears N Tuberculosis N Kidney Failure N Insomnia N Urinary Tract Infection N Substance Abuse N Leg pain Y Warfarin Management N Hepatitis N Pulmonary Embolism N Sore muscles / joints Y Hypertension N Osteoporosis Y Gynecological HistoryNo gynecological history recorded. Obstetrics History GPAL:G 0 P 0 0 0 0 Past Encounters Encounter ID Performer Location Encounter Start Date Encounter Closed Date Diagnosis/Indication Diagnosis SNOMED-CT Code Diagnosis ICD10 Code Diagnosis Note [id number] Marivel Ray APRN [facility] [place] [address] 2 08/02/2024 09:12:57 08/02/2024 11:14:18 Osteoporosis 17562448 M81.0 At moderat e risk for fall 4197080308 09648561 Z91.89 [id number] Marivel Ray APRN [facility] [place] [address] 09/02/2024 11:14:28 09/02/2024 11:54:47 Osteoporosis 25564839 M81.0 At moderat e risk for fall 0917300221 86362235 Z91.89 [id number] Marivel Ray APRN [facility] [place] [address] 10/01/2024 10:07:46 10/01/2024 10:41:54 Osteoporosis 66994938 M81.0 At moderat e risk for fall 3788361697 28249336 Z91.89 Health Concerns Section Related Observation LastModified by Organization Detai ls LastModified Time None Recorded Concern Status LastModified by Organization Details LastModified Time None Recorded Advance Directives Directive None Recorded Payers Encounter Date Sequence Insurance Name Policy Number Policy Angel Covered Member ID Angel Member ID Guarantor Name 08/02/2024 1 [place] Tammy Estrella [id number] Tammy Estrella 08/02/2024 2 [place] (MEDICARE SUPPLEMENT) [id number] Tammy Estrella [id number] Tammy Estrella 09/02/2024 1 [place] Tammy Estrella [id number] Tammy Estrella 09/02/2024 2 [place] (MEDICARE SUPPLEMENT) [id number] Tammy Estrella [id number] Tammy Estrella 10/01/2024 1 [place] Tammy Estrella [id number] Tammy Estrella 10/01/2024 2 [place] (MEDICARE SUPPLE[place]) [id number] Tammy Estrella [id number] Tammy Estrella Notes Date Note Type Note Provider Name and Address Organization Details Recorded Time 4 text/html OsteoporosisReported bypatient.Weightweight (140) Height:loss of 6inches Duration:age at onset of menarche: (14); age at cessation of menses: (47) Fracture History:no history of recent fracture; spine fracture ; hip fracture 2017 Kidney stones:date NO ETOH:no alcohol use; drinks/day 1 Smokingnon-smoker Habitsactive lifestyle; exercise/ week 7; exercise type Bone pain:no bone pain Falls:(normal) abnormality of walk: frequent falls while walking; no fall risk medications Reported Medicationsno history of greater than 5 mg po qd prednisone for over 3 mo. duration; takes calcium supplements: yes; takes vitamin D supplement: yes Calcium intake:servings per day ; supplement type milligrams ___ Home risks:good lighting in home; no stairs; no rugs in home; bathroom rails Help available:family Emergency plan for fall:plan in place DXA Scanlast DXA 07/29/2024 WHO Criterianormal Prior lumbar/sacral surgeryno prior lumbar/sacral surgery Patient presents today in clinic for her bone health. She reports having a recent DEXA which revealed osteoporosis. She has tried numerous osteoporotic medications which has provided no improvement. She does report a history of a fracture. Marivel Jimeneznathy, DRED[employer] [address] [place], [address], [facility] 08/05/2024 08:44:41 5 text/html OsteoporosisReported bypatient.Weightweight (140) Height:loss of 6inches Duration:age at onset of menarche: (14); age at cessation of menses: (47) Fracture History:no history of recent fracture; spine fracture ; hip fracture 2017 Kidney stones:date NO ETOH:no alcohol use; drinks/day 1 Smokingnon-smoker Habitsactive lifestyle; exercise/ week 7; exercise type Bone pain:no bone pain Falls:(normal) abnormality of walk: frequent falls while walking; no fall risk medications Reported Medicationsno history of greater than 5 mg po qd prednisone for over 3 mo. duration; takes calcium supplements: yes; takes vitamin D supplement: yes Calcium intake:servings per day ; supplement type milligrams ___ Home risks:good lighting in home; no stairs; no rugs in home; bathroom rails Help available:family Emergency plan for fall:plan in place DXA Scanlast DXA 07/29/2024 WHO Criterianormal Prior lumbar/sacral surgeryno prior lumbar/sacral surgery Patient presents today in clinic for her bone health. She reports having a recent DEXA which revealed osteoporosis. She has tried numerous osteoporotic medications which has provided no improvement. She does report a history of a fracture. Marivel Garcesernathy, DR[employer] [address] [place], [address], [facility] 09/02/2024 12:12:44 5 text/html OsteoporosisReported bypatient.Weightweight (140) Height:loss of 6inches Duration:age at onset of menarche: (14); age at cessation of menses: (47) Fracture History:no history of recent fracture; spine fracture ; hip fracture 2017 Kidney stones:date NO ETOH:no alcohol use; drinks/day 1 Smokingnon-smoker Habitsactive lifestyle; exercise/ week 7; exercise type Bone pain:no bone pain Falls:(normal) abnormality of walk: frequent falls while walking; no fall risk medications Reported Medicationsno history of greater than 5 mg po qd prednisone for over 3 mo. duration; takes calcium supplements: yes; takes vitamin D supplement: yes Calcium intake:servings per day ; supplement type milligrams ___ Home risks:good lighting in home; no stairs; no rugs in home; bathroom rails Help available:family Emergency plan for fall:plan in place DXA Scanlast DXA 07/29/2024 WHO Criterianormal Prior lumbar/sacral surgeryno prior lumbar/sacral surgery Patient presents today in clinic for her bone health. She reports having a recent DEXA which revealed osteoporosis. She has tried numerous osteoporotic medications which has provided no improvement. She does report a history of a fracture. Marivel Ray, [facility] [address] [place], [address], [facility] 10/01/2024 10:36:58 OBGyn Episode No OBEpisode recorded.
--- OUTSIDE RECORDS SUMMARY | 2024-11-14 12:47 | XMS_ITS | Encounter Summary ---
Author Organization [facility] Address [address] [place] [address] Care Team Providers Care [employer] Cafeteria Cook Head Name Role Phone Unavailable Primary Care Provider Unavailabl e Encounter Details Date Type Department Care Team ([facility] st Contact Info) Description 12/04/2020 Outside Records [facility] [address] [place] [address] Interface, Provider Social History Tobacco Use Types Packs/Day Years Used Date Smoking Tobacco: Never Smokeless Tobacco: Never Alcohol Use Standard Drinks/Week Comments Yes 0 (1 standard drink = 0.6 oz pur e alcohol) Sex and Gender Information Value Date Recorded [...] have Coronavirus / COVID-19? No / Unsure 11/30/2020 9:32 AM CDT documented as of this encounter Plan of Treatment Not on file documented as of this encounter Visit Diagnoses Not on filedocumented in this encounter
--- OUTSIDE RECORDS SUMMARY | 2024-11-14 12:47 | XMS_ITS | Encounter Summary ---
Author Organization [facility] Address [address] [place] [address] Care Team Providers Care Conference Translator Name Role Phone Elgin Chan MD Primary Care Provide r Encounter Details Date Type Department Care Team (Latest Contact Info) Description 05/31/2024 Ancillary Orders [facility] Breast [place] Dexa [place] [address] [place] [phone] Htsp, External Provider Postmenopausal osteoporosis (Primary Dx) Social History Tobacco Use Types Packs/Day Years Used Date Smoking Tobacco: Never Cigarettes Smokeless Tobacco: Never Alcohol Use Standard Drinks/Week Comments Yes 0 (1 standard drink = 0.6 oz pur e alcohol) social Comments No Sex and Gender Information Value Date Recorded Sex Assigned at Not on file Legal Sex Female 11:13 AM [employer]IC[employer] TRAIN[employer] Gender Identity Not on file Sexual Orientation Not on file Occupation Industry Job Start Date Job End Date Not on file Not on file Not on file Not on file documented as of this encounter Plan of Treatment Upcoming Encounters Date Type Department Care Team (Late st Contact Info) Description 02/23/2025 8:00 AM CDT Appointment [facility] Hyperbaric Outpatient Wound [place] [address] [place] [phone] Jenise Spann MD [address] [place] [phone] documented as of this encounter Visit Diagnoses Diagnosis Postmenopausal osteoporosis- Primary Senile osteoporosis documented in this encounter Care Teams Conference Translator Relationship Specialty Start Date End Date Elgin Chan MD [facility] [address] [phone] PCP - General Family Practice 06/26/21 documented as of this encounter
--- OUTSIDE RECORDS SUMMARY | 2024-11-14 12:47 | XMS_ITS | Encounter Summary ---
Author Organization [facility] Address [address] [place] [address] Care Team Providers Care Batch Still Operator Name Role Phone Elgin Chan MD Primary Care Provide r Reason for Referral * CT Scan (Routine) - Closed Specialty Diagnoses / Procedures Referred By Contac t Referred To Contact Diagnoses Cervical stenosis of spine Procedures CT CERVICAL SPINE WO CONTRAST Randell Corona MD [address] [address] Phone: tel: fax: Referral ID Status Reason Start Date Expiration Date V isits Requested Visits Authorized [id number] [facility] 06/01/2024 07/02/2025 1 1 Encounter Details Date Type Department Care Team (Late st Contact Info) Description 06/01/2024 Ancillary Orders [facility] Central Test Scheduling [address] [address] Randell Corona MD [address] [address] Cervical stenosis of spine (Primary Dx) Social History Tobacco Use Types Packs/Day Years Used Date Smoking Tobacco: Never Cigarettes Smokeless Tobacco: Never Alcohol Use Standard Drinks/Week Comments Yes 0 (1 standard drink = 0.6 oz pur e alcohol) social Comments No Sex and Gender Information Value Date Recorded Sex Assigned at Not on file Legal Sex Female 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 Hyperbaric Outpatient Wound [place] [address] [place] [phone] Jenise Spann MD [address] [place] [phone] documented as of this encounter Results * CT CERVICAL SPINE WO CONTRAST (06/03/2024 12:30 PM CDT) Anatomical Region Laterality Modality Spine Computed Tomogra phy 06/03/2024 12:2 5 PM CDT Impressions 06/03/2024 1:01 PM CDT IMPRESSION: 1. No acute osseous abnormality is present in the cervical spine. 2. Extensive degenerative changes are present throughout the cervical spine and upper thoracic spine. 3. There is at least mild spinal canal stenosis and at least moderate bilateral neural foraminal narrowing at C3-4. 4. There is at least mild bilateral neural foraminal narrowing at C5-6 and C6-7. Narrative 06/03/2024 1:[address] cervical spine without contrast with reconstructions 06/03/2024 COMPARISON: 10/05/2015 HISTORY: 79-year-old female with cervical spine stenosis. TECHNIQUE: Axial images were performed through the cervical spine without contrast. Sagittal and coronal reformatted images were obtained. FINDINGS: No acute fracture is seen. The cervical vertebral bodies maintain normal heights. The alignment demonstrates dextroscoliosis with the apex at C4. There is also kyphosis of the mid to lower cervical spine. There is grade II anterolisthesis of C3 in relationship to C4. The disc spaces are severely narrowed from C3-4 to C7-T1. There is also severe loss of disc height at C7-T1 and T1-2. The posterior elements demonstrate no acute change. There is multilevel uncovertebral joint and facet hypertrophy bilaterally throughout the cervical spine. The visualized skull base and upper thoracic spine demonstrate no acute change. There is partial visualization of posterior fusion hardware in the upper thoracic spine with bilateral pedicle screws at T3 and T4. There is no prevertebral soft tissue swelling. At C3-4 there is at least mild spinal canal stenosis and at least moderate bilateral neural foraminal narrowing secondary to the anterolisthesis of C3 in relationship to C4 as well as the bilateral uncovertebral joint and facet hypertrophy. At C5-6 and C6-7 there is at least mild bilateral neural foraminal narrowing secondary to bilateral uncovertebral joint and facet hypertrophy. Procedure Note Carlo Tyson MD - 06/03/2024 CT cervical spine without contrast with reconstructions 06/03/2024 COMPARISON: 10/05/2015 HISTORY: 79-year-old female with cervical spine stenosis. TECHNIQUE: Axial images were performed through the cervical spine without contrast. Sagittal and coronal reformatted images were obtained. FINDINGS: No acute fracture is seen. The cervical vertebral bodies maintain normal heights. The alignment demonstrates dextroscoliosis with the apex at C4. There is also kyphosis of the mid to lower cervical spine. There is grade II anterolisthesis of C3 in relationship to C4. The disc spaces are severely narrowed from C3-4 to C7-T1. There is also severe loss of disc height at C7-T1 and T1-2. The posterior elements demonstrate no acute change. There is multilevel uncovertebral joint and facet hypertrophy bilaterally throughout the cervical spine. The visualized skull base and upper thoracic spine demonstrate no acute change. There is partial visualization of posterior fusion hardware in the upper thoracic spine with bilateral pedicle screws at T3 and T4. There is no prevertebral soft tissue swelling. At C3-4 there is at least mild spinal canal stenosis and at least moderate bilateral neural foraminal narrowing secondary to the anterolisthesis of C3 in relationship to C4 as well as the bilateral uncovertebral joint and facet hypertrophy. At C5-6 and C6-7 there is at least mild bilateral neural foraminal narrowing secondary to bilateral uncovertebral joint and facet hypertrophy. IMPRESSION: 1. No acute osseous abnormality is present in the cervical spine. 2. Extensive degenerative changes are present throughout the cervical spine and upper thoracic spine. 3. There is at least mild spinal canal stenosis and at least moderate bilateral neural foraminal narrowing at C3-4. 4. There is at least mild bilateral neural foraminal narrowing at C5-6 and C6-7. us Randell Corona MD CT ORDERABLES Monie l Result documented in this encounter Visit Diagnoses Diagnosis Cervical stenosis of spine- Primary Spinal stenosis in cervical region Cervical stenosis of spine Spinal stenosis in cervical region documented in this encounter Care Teams Batch Still Operator Relationship Specialty Start Date End Date Elgin Chan MD [facility] [address] [place] [phone] PCP - General Family Practice 06/26/21 documented as of this encounter
--- OUTSIDE RECORDS SUMMARY | 2024-11-14 12:47 | XMS_ITS | Encounter Summary ---
Author Organization [facility] Address [address] [place] [address] Care Team Providers Care Welding Machine Operator Electroslag Name Role Phone Elgin Chan MD Primary Care Provide r Reason for Referral * Radiology Services (Routine) - Open Specialty Diagnoses / Procedures Referred By Contac t Referred To Contact Diagnoses Postmenopausal osteoporosis Procedures XR DEXA BONE DENSITY AXIAL 1 OR MORE SITES XR DEXA BONE DENSITY AXIAL 1 OR MORE SITES Randell Corona MD [address] [address] Phone: tel: fax: Referral ID Status Reason Start Date Expiration Date Visits Re quested Visits Authorized [id number] Open 05/31/2024 07/01/2025 1 1 Encounter Details Date Type Department Care Team (Latest Contact Info) Description 06/01/2024 Ancillary Orders [facility] Central Test Scheduling [address] [address] Randell Corona MD [address] [address] Postmenopausal osteoporosis (Primary Dx) Social History Tobacco Use Types Packs/Day Years Used Date Smoking Tobacco: Never Cigarettes Smokeless Tobacco: Never Alcohol Use Standard Drinks/Week Comments Yes 0 (1 standard drink = 0.6 oz pur e alcohol) social Comments No Sex and Gender Information Value Date Recorded Sex Assigned at Not on file 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 Gender Identity Not on file Sexual Orientation Not on file Occupation Industry Job Start Date Job End Date Not on file Not on file Not on file Not on file documented as of this encounter Plan of Treatment Upcoming Encounters Date Type Department Care Team (Late st Contact Info) Description 02/23/2025 8:00 AM CDT Appointment [facility] Hyperbaric Outpatient Wound [place] [address] [place] [phone] Jenise Spann MD [address] [place] [address] documented as of this encounter [...] AXIAL 1 OR MORE SITES Clinical information: DULL COAT MILL OPERATOR Screening Comparison: 10/22/2022 RADIUS UD: Bone density: [...] AXIAL 1 OR MORE SITES Clinical information: DULL COAT MILL OPERATOR Screening Comparison: 10/22/2022 RADIUS UD: Bone density: [...] MD DIAGNOSTIC IMAGING O RDERABLES Final Result documented in this encounter Visit Diagnoses Diagnosis Postmenopausal osteoporosis- Primary Senile osteoporosis Postmenopausal osteoporosis Senile osteoporosis documented in this encounter Care Teams Welding Machine Operator Electroslag Relationship Specialty Start Date End Date Elgin Chan MD [facility] [address] [place] [address] PCP - General Family Practice 06/26/21 documented as of this encounter
--- OUTSIDE RECORDS SUMMARY | 2024-11-14 12:47 | XMS_ITS | Encounter Summary ---
Author Organization [facility] Address [address] [place] [address] Care Team Providers Care Contractor Broomcorn Threshing Name Role Phone Elgin Chan MD Primary Care Provide r Encounter Details Date Type Department Care Team (Late st Contact Info) Description 05/03/2022 Ancillary Orders [facility] Internal Medicine [place] [address] [place] [phone] Cecilia Hyman, ENDODONTIST [address] [facility] 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 Gender Identity Not on file Sexual Orientation Not on file Occupation Industry Job Start Date Job End Date Not on file Not on file Not on file Not on file documented as of this encounter Plan of Treatment Upcoming Encounters Date Type Department Care Team (Late st Contact Info) Description 02/23/2025 8:00 AM CDT Appointment [facility] Hyperbaric Outpatient Wound [place] [address] [place] [phone] Jenise Spann MD [address] [place] [phone] documented as of this encounter Results * XR HIP 2 OR 3 VIEWS LT (05/03/2022 11:39 AM CDT) Anatomical Region Laterality Modality Lower Extremity Left Computed Radiogr aphy 05/03/2022 11:3 9 AM CDT Impressions 05/03/2022 11:43 AM CDT IMPRESSION: 1. Moderate degenerative changes left hip. 2. Postoperative changes left hip and from prior lumbosacral fusion. Narrative 05/03/2022 11:43 AM CDT Exam: XR HIP 2 OR 3 VIEWS LT Clinical history: 77-year-old female. Left hip pain Comparison: None Findings: There are postoperative changes from internal fixation of the left hip with intramedullary jacqueline and screws. There is narrowing of the joint space. There is sclerosis of the femoral head and acetabular rim as well as mild spurring. There are postoperative changes from prior lumbosacral fusion. Procedure Note Fan Aguirre MD - 05/03/2022 Exam: XR HIP 2 OR 3 VIEWS LT Clinical history: 77-year-old female. Left hip pain Comparison: None Findings: There are postoperative changes from internal fixation of the left hip with intramedullary jacqueline and screws. There is narrowing of the joint space. There is sclerosis of the femoral head and acetabular rim as well as mild spurring. There are postoperative changes from prior lumbosacral fusion. IMPRESSION: 1. Moderate degenerative changes left hip. 2. Postoperative changes left hip and from prior lumbosacral fusion. Cecilia Hyman ENDODONTIST DIAGNOSTIC IMAGING ORDERABL ES Final Result * XR LUMBAR SPINE 2 OR 3 VW (05/03/2022 11:31 AM CDT) Anatomical Region Laterality Modality Spine Computed Radiogr aphy 05/03/2022 11:3 4 AM CDT Impressions 05/03/2022 11:46 AM CDT IMPRESSION: 1. Osteopenia. 2. Extensive thoracal lumbar and sacral fusion. 3. Fracture of the jacqueline at the level of L4-5 on the left. This is unchanged. Narrative 05/03/2022 11:46 AM CDT Exam: Lumbar spine series 3 views. Clinical history: 77-year-old female. Left lumbosacral radiculopathy COMPARISON: 10/05/2020. Interpretation: The bones are osteopenic. There are tear bodies are normal in height. Lateral images include T11-S2. There are postoperative changes from extensive thoracic, lumbar and sacral fusion with transpedicular screws and rods. There is a fracture of the left jacqueline at the level of L4-5. This is unchanged. Procedure Note Fan Aguirre MD - 05/03/2022 Exam: Lumbar spine series 3 views. Clinical history: 77-year-old female. Left lumbosacral radiculopathy COMPARISON: 10/05/2020. Interpretation: The bones are osteopenic. There are tear bodies are normal in height. Lateral images include T11-S2. There are postoperative changes from extensive thoracic, lumbar and sacral fusion with transpedicular screws and rods. There is a fracture of the left jacqueline at the level of L4-5. This is unchanged. IMPRESSION: 1. Osteopenia. 2. Extensive thoracal lumbar and sacral fusion. 3. Fracture of the jacqueline at the level of L4-5 on the left. This is unchanged. Cecilia Hyman ENDODONTIST DIAGNOSTIC IMAGING ORDERABL ES Final Result documented in this encounter Visit Diagnoses Diagnosis Left lumbosacral radiculopathy Thoracic or lumbosacral neuritis or radiculitis, unspecified Left hip pain Pain in joint, pelvic region and thigh Left hip pain Pain in joint, pelvic region and thigh Left lumbosacral radiculopathy Thoracic or lumbosacral neuritis or radiculitis, unspecified documented in this encounter Care Teams Contractor Broomcorn Threshing Relationship Specialty Start Date End Date Elgin Chan MD [address] [place] [address] PCP - General Family Practice 06/26/21 documented as of this encounter
--- OUTSIDE RECORDS SUMMARY | 2024-11-14 12:47 | XMS_ITS | Encounter Summary ---
Author Organization [facility] Address [address] [place] [address] Care Team Providers Care Literacy Teacher Name Role Phone Unavailable Primary Care Provider Unavailabl e Encounter Details Date Type Department Care Team ([facility] st Contact Info) Description 09/12/2017 Outside Records [facility] [address] [facility] [place] [address] Interface, Provider Social History Tobacco Use Types Packs/Day Years Used Date Smoking Tobacco: Never Smokeless Tobacco: Never Sex and Gender Information Value Date Recorded [...]
--- OUTSIDE RECORDS SUMMARY | 2024-11-14 12:47 | XMS_ITS | Encounter Summary ---
Author Organization [facility] Address [address] [place] [address] Care Team Providers Care Child Care Centre Director Name Role Phone Unavailable Primary Care Provider Unavailabl e Encounter Details Date Type Department Care Team ([facility] st Contact Info) Description 01/25/2021 Outside Records [facility] [address] [facility] [place] [address] Interface, Provider Social History Tobacco Use Types [...] have Coronavirus / COVID-19? No / Unsure 01/11/2021 8:25 AM CDT documented as of this encounter Plan of Treatment Not on file documented as of this encounter Visit Diagnoses Not on filedocumented in this encounter
--- OUTSIDE RECORDS SUMMARY | 2024-11-14 12:47 | XMS_ITS | Encounter Summary ---
Author Organization [facility] Address [address] [place] [address] Care Team Providers Care Silver Spray Worker Name Role Phone Elgin Chan MD Primary Care Provide r Reason for Referral * Outpatient Services (Routine) - Closed Specialty Diagnoses / Procedures Referred By Contac t Referred To Contact Diagnoses Osteopenia Procedures XR DEXA BONE DENSITY AXIAL 1 OR MORE SITES Noemi Angel MD NO ADDRESS ON FILE Referral ID Status Reason Start Date Expiration Date Visits Re quested Visits Authorized [id number] Closed 06/09/2012 06/09/2013 1 1 Encounter Details Date Type Department Care Team (Late Contact Info) Description 06/09/2012 Ancillary Orders 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 Gender Identity Not on file Sexual Orientation Not on file Occupation Industry Job Start Date Job End Date Not on file Not on file Not on file Not on file documented as of this encounter Plan of Treatment Upcoming Encounters Date Type Department Care Team (Late Contact Info) Description 02/23/2025 8:00 AM CDT Appointment [facility] Hyperbaric Outpatient Wound [place] [address] [place] [phone] Jenise Spann MD [address] [place] [phone] documented as of this encounter Results * (ABNORMAL) XR DEXA BONE DENSITY AXIAL 1 OR MORE SITES (07/13/2012 11:57 AM ACADEMIC AFFAIRS VICE PRESIDENT) T-SCORE FEMUR (LEFT) T-SCORE FEMUR (RIGHT) T-SCORE FEMUR >=-0.99 T-SCORE SPINE -1.3(A) >=-0.99 T-SCORE HIP (LEFT) -1.8(A) >=-0.99 T-SCORE HIP (RIGHT) T-SCORE HIP >=-0.99 Anatomical Region Laterality Modality Computed Radiogr aphy Impressions 07/13/2012 11:57 AM ACADEMIC AFFAIRS VICE PRESIDENT Results: Osteopenia in the lumbar spine, which has slightly improved as compared to previous study. Osteopenia in the left femoral neck, which is unchanged as compared to the previous study. Recommendations: Calcium 1200 mg per day, with 2000+ units vitamin D daily. Increase weight bearing exercise, limit alcohol consumption and decrease caffeine consumption. It is important to take the daily recommended allowances of calcium and vitamin D regularly. Repeat BMD in 2 years us Noemi Angel MD DIAGNOSTIC IMAGING ORDERABLE S Final Result documented in this encounter Visit Diagnoses Diagnosis Osteopenia Disorder of bone and cartilage, unspecified documented in this encounter Care Teams Silver Spray Worker Relationship Specialty Start Date End Date Elgin Chan [place] [phone] PCP - General Family Practice 06/26/21 documented as of this encounter
--- OUTSIDE RECORDS SUMMARY | 2024-11-14 12:47 | XMS_ITS | Encounter Summary ---
Author Organization [facility] Address [address] [place] [address] Care Team Providers Care Warp Tester Name Role Phone Unavailable Primary Care Provider Unavailabl e Encounter Details Date Type Department Care Team ([facility] st Contact Info) Description 09/12/2017 Outside Records [facility] [address] [facility] [place] [address] Interface, Provider Social History Tobacco Use Types [...]
--- OUTSIDE RECORDS SUMMARY | 2024-11-14 12:47 | XMS_ITS | Encounter Summary ---
Author Organization [facility] Address [address] [place] [address] Care Team Providers Care Orange Picker Machine Operator Name Role Phone Elgin Chan MD Primary Care Provide r Encounter Details Date Type Department Care Team (Late st Contact Info) Description 10/10/2016 Ancillary Orders [facility] Mammography [place] [address] [place] [phone] Riley Galloway MD [facility] [address] [place] [phone] Abnormal mammogram Social History Tobacco Use Types Packs/Day Years Used Date Smoking Tobacco: Never Cigarettes Smokeless Tobacco: Never Alcohol Use Standard Drinks/Week Comments Yes 0 (1 standard drink = 0.6 oz pur e alcohol) social Comments No Sex and Gender Information Value Date Recorded Sex Assigned at Not on file Legal 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 Female 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 Gender Identity Not on file Sexual Orientation Not on file Occupation Industry Job Start Date Job End Date Not on file Not on file Not on file Not on file documented as of this encounter Plan of Treatment Upcoming Encounters Date Type Department Care Team (Late st Contact Info) Description 02/23/2025 8:00 AM CDT Appointment [facility] Hyperbaric Outpatient Wound [place] [address] [place] [phone] Jenise Spann MD [address] [place] [phone] documented as of this encounter Visit Diagnoses Diagnosis Abnormal mammogram Abnormal mammogram, unspecified documented in this encounter Care Teams Orange Picker Machine Operator Relationship Specialty Start Date End Date Elgin Chan MD [employer] [place] [phone] PCP - General Family Practice 06/26/21 documented as of this encounter
--- OUTSIDE RECORDS SUMMARY | 2024-11-14 12:47 | XMS_ITS | Encounter Summary ---
Author Organization [facility] Address [address] [place] [address] Care Team Providers Care Circular Saw Filer Name Role Phone Elgin Chan MD Primary Care Provide r Reason for Referral * Nuclear Medicine (Routine) - Closed Specialty Diagnoses / Procedures Referred By Contac t Referred To Contact Diagnoses Osteoporosis, unspecified osteoporosis type, unspecified pathological fracture presence Fusion of lumbar spine Procedures NM BONE SCAN WHOLE BODY Abad Soriano MD [address] [place] [phone] Phone: tel: fax: Referral ID Status Reason Start Date Expiration Date Visits Re quested Visits Authorized [id number] Closed 09/02/2023 10/02/2024 1 1 T BAND SEWER Encounter Details Date Type Department Care Team (Latest Contact Info) Description 09/02/2023 Ancillary Orders [facility] Central Test Scheduling [address] [phone] Abad Soriano MD [address] [place] [phone] Osteoporosis, unspecified osteoporosis type, unspecified pathological fracture presence (Primary Dx); Fusion of lumbar spine Social History Tobacco Use Types Packs/Day Years Used Date Smoking Tobacco: Never Cigarettes Smokeless Tobacco: Never Alcohol Use Standard Drinks/Week Comments Yes 0 (1 standard drink = 0.6 oz pur e alcohol) social Comments No Sex and Gender Information Value Date Recorded Sex Assigned at Not on file Legal Sex Female 11:13 AM SWEAT BAND SEWER Gender Identity Not on file Sexual Orientation Not on file Occupation Industry Job Start Date Job End Date Not on file Not on file Not on file Not on file documented as of this encounter Plan of Treatment Upcoming Encounters Date Type Department Care Team (Late st Contact Info) Description 02/23/2025 8:00 AM CDT Appointment [facility] Hyperbaric Outpatient Wound [place] [address] [facility] [place] [phone] Jenise Spann MD [address] [place] [address] documented as of this encounter Results * NM BONE SCAN WHOLE BODY (09/09/2023 11:52 AM SWEAT BAND SEWER) Anatomical Region Laterality Modality Nuclear Medicine 09/09/2023 11:5 2 AM SWEAT BAND SEWER Impressions 09/09/2023 1:19 PM SWEAT BAND SEWER IMPRESSION: 1. Left hip osteoarthritis. Narrative 09/09/2023 1:19 PM SWEAT BAND SEWER Nuclear medicine whole body bone scan 09/09/2023 COMPARISON: Pelvis radiograph 04/07/2023 HISTORY: 78-year-old female with osteoporosis. TECHNIQUE: The patient received an intravenous dose of 21.2 millicuries of technetium 99m MDP. Whole-body images and multiple spot images were obtained 1.5 to 2 hours after radiotracer administration. FINDINGS: There is no suspicious activity in the thoracic spine were lumbar spine. There is increased uptake in the left hip corresponding to left hip osteoarthritis seen on previous radiograph. There is no other abnormal activity in the pelvis or extremities. Procedure Note Carlo Tyson MD - 09/09/2023 Nuclear medicine whole body bone scan 09/09/2023 COMPARISON: Pelvis radiograph 04/07/2023 HISTORY: 78-year-old female with osteoporosis. TECHNIQUE: The patient received an intravenous dose of 21.2 millicuries of technetium 99m MDP. Whole-body images and multiple spot images were obtained 1.5 to 2 hours after radiotracer administration. FINDINGS: There is no suspicious activity in the thoracic spine were lumbar spine. There is increased uptake in the left hip corresponding to left hip osteoarthritis seen on previous radiograph. There is no other abnormal activity in the pelvis or extremities. IMPRESSION: 1. Left hip osteoarthritis. Abad Soriano MD [place] ORDERABLES Final Result documented in this encounter Visit Diagnoses Diagnosis Osteoporosis, unspecified osteoporosis type, unspecified pathological fracture presence- Primary Fusion of lumbar spine Osteoporosis, unspecified osteoporosis type, unspecified pathological fracture presence Fusion of lumbar spine documented in this encounter Care Teams Circular Saw Filer Relationship Specialty Start Date End Date Elgin Chan MD [address] [place] [phone] PCP - General Family Practice 06/26/21 documented as of this encounter
--- OUTSIDE RECORDS SUMMARY | 2024-11-14 12:47 | XMS_ITS | Encounter Summary ---
Author Organization [facility] Address [address] [facility] [place] [address] Care Team Providers Care Environmental Protection Officer Name Role Phone Unavailable Primary Care Provider Unavailabl e Encounter Details Date Type Department Care Team ([facility] st Contact Info) Description 10/03/2017 Outside Records [facility] [address] [facility] [place] [address] Interface, Provider Social History Tobacco Use Types [...]
--- OUTSIDE RECORDS SUMMARY | 2024-11-14 12:47 | XMS_ITS | Encounter Summary ---
Author Organization [facility] Address [address] [facility] [place] [address] Care Team Providers Care Underwear Finisher Name Role Phone Elgin Chan MD Primary Care Provide r Reason for Referral * CT Scan (Routine) - Closed Specialty Diagnoses / Procedures Referred By Contac t Referred To Contact Diagnoses Acquired kyphosis Procedures CT LUMBAR SPINE WO CONTRAST Randell Corona MD [address] [phone] Phone: tel: fax: Referral ID Status Reason Start Date Expiration Date V isits Requested Visits Authorized [id number] Closed [facility] to Schedule 09/16/2024 10/17/2025 1 [address] * CT Scan (Routine) - Closed Specialty Diagnoses / Procedures Referred By Contac t Referred To Contact Diagnoses Fusion of spine, thoracic region Procedures CT THORACIC SPINE WO CONTRAST Randell Corona MD [address] [phone] Phone: tel: fax: Referral ID Status Reason Start Date Expiration Date V isits Requested Visits Authorized [id number] Closed [facility] CTS to Schedule 09/16/2024 10/17/2025 1 1 ASSISTANT Encounter Details Date Type Department Care Team ([facility] Contact Info) Description 09/16/2024 Ancillary Orders [facility] Central Test Scheduling [place] [address] [place] [address] Randell Corona MD [address] [phone] Fusion of spine, thoracic region (Primary Dx); Acquired kyphosis Social History Tobacco Use Types Packs/Day Years Used Date Smoking Tobacco: Never Cigarettes Smokeless Tobacco: Never Alcohol Use Standard Drinks/Week Comments Yes 0 (1 standard drink = 0.6 oz pur e alcohol) social Comments No Sex and Gender Information Value Date Recorded Sex Assigned at Not on file Legal Sex Female 11:13 AM MRI ASSISTANT Gender Identity Not on file Sexual Orientation Not on file Occupation Industry Job Start Date Job End Date Not on file Not on file Not on file Not on file documented as of this encounter Plan of Treatment Upcoming Encounters Date Type Department Care Team (Late Contact Info) Description 02/23/2025 8:00 AM CDT Appointment [facility] Hyperbaric Outpatient Wound [place] [address] [place] [address] Jenise Spann MD [address] [place] [phone] documented as of this encounter Results * CT LUMBAR SPINE WO CONTRAST (09/20/2024 3:45 PM MRI ASSISTANT) Anatomical Region Laterality Modality Spine Computed Tomogra phy 09/20/2024 3:45 PM MRI ASSISTANT Impressions 09/20/2024 3:58 PM MRI ASSISTANT IMPRESSION: 1. No acute osseous abnormality is present in the lumbar spine. 2. There has been fusion of the thoracolumbar and lumbosacral spine. Laminectomy changes are seen on the left from L3 to L5. 3. Mild dextroscoliosis of the lumbar spine. 4. Old superior plate fracture of L1 with minimal loss of vertebral body height. Narrative 09/20/2024 3:[address] lumbar spine without contrast with reconstructions [...] THORACIC SPINE WO CONTRAST (09/20/2024 3:44 PM MRI ASSISTANT) Anatomical Region Laterality Modality Spine Computed Tomogra phy 09/20/2024 3:44 PM MRI ASSISTANT Impressions 09/20/2024 3:54 PM MRI ASSISTANT IMPRESSION: 1. No acute osseous abnormality is present in the thoracic spine. 2. There has been fusion of the thoracic spine into the upper lumbar spine extending from T3 inferiorly. The alignment is fairly well preserved. 3. There are remote mild superior plate compression fractures of T11 and L1. Narrative 09/20/2024 3:[address] thoracic spine without contrast with reconstructions [...] documented in this encounter Visit Diagnoses Diagnosis Fusion of spine, thoracic region- Primary Acquired kyphosis Kyphosis (acquired) (postural) Fusion of spine, thoracic region Acquired kyphosis Kyphosis (acquired) (postural) documented in this encounter Care Teams Underwear Finisher Relationship Specialty Start Date End Date Elgin Chan MD [address] [place] [phone] PCP - General Family Practice 06/26/21 documented as of this encounter
--- OUTSIDE RECORDS SUMMARY | 2024-11-14 12:47 | XMS_ITS | Encounter Summary ---
Author Organization [facility] Address [address] [place] [address] Care Team Providers Care Safety Sealer Name Role Phone Unavailable Primary Care Provider Unavailabl e Encounter Details Date Type Department Care Team ([facility] st Contact Info) Description 11/19/2018 Outside Records [facility] [address] [facility] [place] [address] Interface, Provider Social History Tobacco Use Types [...]
[2024-11-14 13:05] LABS: Basophils Percent Auto 0.3 % (0.2-1.2); Eosinophils Percent Auto 0.1 % (0-4.4); Hematocrit 30.1 % (37.0-47.0); Lymphocytes Absolute Auto 1.98 K/mm3 (0.9-3.2); Lymphocytes Percent Auto 19.7 % (18.3-44.2); Mean Corpuscular HGB Conc 29.9 g/dl (32-36); Mean Corpuscular Hemoglobin 28.6 pg (26-34); Mean Corpuscular Volume 95.6 fl (80-100); Mean Platelet Volume 8.7 fl (7.4-10.4); Monocytes Absolute Auto 0.6 K/mm3 (0.1-0.6); Monocytes Percent Auto 6.4 % (2.6-8.5); Neutrophils Absolute Auto 7.3 K/mm3 (1.3-6.7); Neutrophils Percent Auto 72.5 % (45.5-73.1); Platelet Count Result 312 k/mm3 (150-375); Red Blood Count 3.15 M/mm3 (4.2-5.4); Red Cell Distribution Width 19.3 % (11.5-14.5); White Blood Count 10.1 K/mm3 (4.5-10.0)
[2024-11-14 13:12] LABS: INR 1.6; Prothrombin Time 19.1 Seconds (11.1-14.7)
[2024-11-14 13:15] LABS: Lactic Acid Reflex 1.1 mmol/L (0.7-2.0)
[2024-11-14 13:18] LABS: Alanine Aminotransferase 19 U/L (6-35); Albumin Level 2.4 g/dL (3.5-5.1); Alkaline Phosphatase 117 U/L (38-126); Aspartate Amino Transferase 26 U/L (14-36); Bilirubin,Total 0.5 mg/dL (0.2-1.3); Blood Urea Nitrogen 16 mg/dL (7-17); Calcium 7.8 mg/dL (8.4-10.2); Carbon Dioxide > 40 mmol/L (22-30); Chloride 90 mmol/L (98-107); Estimated CRCL calculation 67 ml/min; Estimated Glomerular Filt Rate > 60; Glucose 94 mg/dL (65-110); Potassium 3.9 mmol/L (3.4-5.0); Sodium 132 mmol/L (137-145)
[2024-11-14 13:27] LABS: Anisocytosis 1+; Platelet Estimate Adequate (Adequate); Schistocytes None Seen
[2024-11-14 13:30] LABS: Atypical Lymphocytes Present; Polychromasia 1+
[2024-11-14 13:33] LABS: Troponin I 0.077 ng/mL (0.000-0.034)
[2024-11-14] MEDS: SODIUM CHLORIDE 0.9% IV 500 ML 999 ML IV CONT (13:43)
--- NOTE | 2024-11-14 14:30 | ED_ITS ---
HPI - General Adult General Chief complaint: Recheck/Abnormal Lab/Rx Stated complaint: low BP Time Seen by Provider: 11/14/24 12:33 Source: patient and family Mode of arrival: EMS Limitations: no limitations History of Present Illness HPI narrative: 79-year-old with a history of status post cervical fusion done at [facility] in mid Sep presently in [facility] and is being transferred to [facility] for local [facility] [employer] [facility] , on enroute to the [place] she is found to be Hypoxic and Hypotensive , upon arrival tot he ER she has no complaints of having chest pain or shortness of breath. she is not on home oxygen . Has a history of atrial fibrillation and recurrent pleural effusions. states that she had multiple times thoracentesis done. No fever . Has H/O of Cdiff colitis ,but has no diarrhea and she states she was tested recently and it was neg. Onset (ago): hour(s) (1) Associated symptoms: denies other symptoms Related Data Home Medications ?Medication ?Instructions ?Recorded ?Confirmed ?Last Taken ?Type acetaminophen 500 mg capsule 1,000 mg PO Q6H 10/29/24 10/29/24 Unknown History amiodarone 200 mg tablet 200 mg PO DAILY 10/29/24 10/29/24 10/29/24 History azelastine 137 mcg (0.1 %) nasal 2 spray intranasal Q12H PRN runny 10/29/24 10/29/24 Unknown History spray nose clotrimazole-betamethasone 1 1 applic topical BID 10/29/24 10/29/24 10/29/24 History %-0.05 % topical cream diphenhydramine HCl 25 mg tablet 25 mg PO HS 10/29/24 10/29/24 Unknown History (Banophen) ferrous sulfate 325 mg (65 mg 325 mg PO DAILY 10/29/24 10/29/24 10/29/24 History iron) tablet (Feosol) fluticasone propionate 50 1 spray intranasal BID PRN allergy 10/29/24 10/29/24 Unknown History mcg/actuation nasal symptoms spray,suspension (24 Hour Allergy Relief) lidocaine 5 % topical patch 2 patch topical DAILY 10/29/24 10/29/24 10/29/24 History methocarbamol 750 mg tablet 1,500 mg PO TID 10/29/24 10/29/24 10/29/24 History nystatin 100,000 unit/mL oral 5 ml PO QID 10/29/24 10/29/24 10/29/24 History suspension pramipexole 0.5 mg tablet 0.5 mg PO BID 10/29/24 10/29/24 10/29/24 History pregabalin 150 mg capsule (Lyrica) 150 mg PO BID 10/29/24 10/29/24 10/29/24 History trazodone 50 mg tablet 50 mg PO HS 10/29/24 10/29/24 10/28/24 History triamcinolone acetonide 0.5 % 1 applic topical DAILY PRN rash 10/29/24 10/29/24 Unknown History topical cream (Triderm) warfarin 2.5 mg tablet 2.5 mg PO DAILY 10/29/24 10/29/24 Unknown History Allergies Allergy/AdvReac Type Severity Reaction Status Date / Time metronidazole Allergy Hives Verified 10/29/24 18:24 adhesive tape AdvReac Mild itching Verified 10/29/24 18:24 formaldehyde AdvReac rash Verified 10/29/24 18:24 latex AdvReac Itching Verified 10/29/24 18:24 prednisone AdvReac Anxiety Verified 10/29/24 18:24 Review of Systems 2 Review of Systems: All systems reviewed & are unremarkable except as noted in HPI and below Constitutional: Constitutional: Reports no additional constitutional complaints Eyes: Eyes: Reports no additional eye complaints ENT: Reports system reviewed and no additional complaints, except as documented Cardiovascular: Cardiovascular: Reports no additional cardiovascular complaints Respiratory: Respiratory: Reports as per HPI Gastrointestinal: Gastrointestinal: Reports no additional gastrointestinal complaints Genitourinary: Genitourinary: Reports no additional female genitourinary complaints Musculoskeletal: Musculoskeletal: Reports no additional musculoskeletal complaints [facility] Past Medical History Medical History Cervicothoracic kyphosis RLS (restless legs syndrome) Chronic hyponatremia C. difficile diarrhea Bradycardia HTN (hypertension) Social History Social History Smoking status: Never smoker Alcohol intake: never Substance use: never Do You Feel Safe in your Home?: Yes Lack of Transportation: No Lack of Food: Never True Current Housing: I Have Housing Concerned About Future Housing: No Difficulty Paying Gas/Electric Bills: No Difficulty Paying for Meds: No Currently Unemployed: No Education: Associate Degree Difficulty w/ Childcare or Family Care: No Spiritual care concerns: No Exam 2 Narrative: GENERAL: Well-appearing, thin and frail , and in no acute distress. HEAD: Normocephalic, atraumatic. EYES: PERRLA and EOMI. ENT: Nares clear, no rhinorrhea or epistaxis. Mucous membranes moist. NECK: Supple.in soft collor CHEST: Clear to auscultation. No respiratory distress. HEART: Regular rate and rhythm. No murmur heard. Normal peripheral pulses. ABDOMEN: Soft, nontender, nondistended, normal active bowel sounds. EXTREMITIES: Normal range of motion. No edema. SKIN: Warm, dry, no rash. NEURO: No focal deficits. Alert and oriented x3. PSYCH: Normal mood and affect. Course Course Emergency Course: Patient remained hypertensive 83/56 for long period of time she states the pressure is always low. I did discuss lab work, EKG and CT findings with the patient and the . Will admit her to the hospital. But possibly 2 thoracentesis in the morning. Discussed with the hospitalist agreed with admission. Vital Signs Vital signs: Vital Signs Temperature 36.2 C L 11/14/24 12:13 Pulse Rate 103 H 11/14/24 12:13 Respiratory Rate 18 11/14/24 12:13 Blood Pressure 82/43 L 11/14/24 12:13 Pulse Oximetry 93 11/14/24 12:13 Oxygen Delivery Room Air 11/14/24 12:13 Temperature 36.2 C L 11/14/24 12:13 Pulse Rate 96 11/14/24 14:56 Respiratory Rate 18 11/14/24 14:56 Blood Pressure 83/51 L 11/14/24 14:56 Pulse Oximetry 94 11/14/24 14:56 Oxygen Delivery Room Air 11/14/24 12:13 Medical Decision Making Differential Diagnosis Differential Diagnosis: Sepsis, dehydration, or hypotension Medical Records Medical records reviewed: Yes I reviewed the external patient's medical records. Vital Signs Vital Signs: Vital Signs Temperature 36.2 C L 11/14/24 12:13 Pulse Rate 103 H 11/14/24 12:13 Respiratory Rate 18 11/14/24 12:13 Blood Pressure 82/43 L 11/14/24 12:13 Pulse Oximetry 93 11/14/24 12:13 Oxygen Delivery Room Air 11/14/24 12:13 Temperature 36.2 C L 11/14/24 12:13 Pulse Rate 96 11/14/24 14:56 Respiratory Rate 18 11/14/24 14:56 Blood Pressure 83/51 L 11/14/24 14:56 Pulse Oximetry 94 11/14/24 14:56 Oxygen Delivery Room Air 11/14/24 12:13 Lab Data Lab results reviewed: Yes I reviewed the patient's lab results. 11/14/24 12:55 11/14/24 12:55 Labs: Lab Results 11/14/24 11/14/24 11/14/24 Range/Units 12:52 12:55 14:24 WBC 10.1 H (4.5-10.0) K/mm3 RBC 3.15 L (4.2-5.4) M/mm3 Hgb 9.0 L (12.0-15.0) g/dL Hct 30.1 L (37.0-47.0) % MCV 95.6 (80-100) fl MCH 28.6 (26-34) pg MCHC 29.9 L (32-36) g/dl RDW 19.3 H (11.5-14.5) % Plt Count 312 (150-375) k/mm3 MPV 8.7 (7.4-10.4) fl Immature Gran % (Auto) 1.0 H (0-0.5) % Neut % (Auto) 72.5 (45.5-73.1) % Lymph % (Auto) 19.7 (18.3-44.2) % Mills % (Auto) 6.4 (2.6-8.5) % Eos % (Auto) 0.1 (0-4.4) % Baso % (Auto) 0.3 (0.2-1.2) % Lymph # (Auto) 1.98 (0.9-3.2) K/mm3 Mills # (Auto) 0.6 (0.1-0.6) K/mm3 Eos # (Auto) 0.0 (0-0.3) K/mm3 Baso # (Auto) 0.0 (0.0-0.1) K/mm3 Abs Immat Gran (auto) 0.10 H (0.00-0.031) K/mm3 Absolute Neuts (auto) 7.3 H (1.3-6.7) K/mm3 Absolute Nucleated RBC 0.000 (0.0-0.012) K/mm3 Band Neutrophils % Not Reportable Nucleated RBC % 0.0 (0.0-0.2) % Atypical Lymphocytes Present Platelet Estimate Adequate (Adequate) Polychromasia 1+ Anisocytosis 1+ Schistocytes None seen PT 19.1 H (11.1-14.7) Seconds INR 1.6 Sodium 132 L (137-145) mmol/L Potassium 3.9 (3.4-5.0) mmol/L Chloride 90 L (98-107) mmol/L Carbon Dioxide > 40 H (22-30) mmol/L Anion Gap (4-12) mmol/L BUN 16 (7-17) mg/dL Creatinine 0.58 L (0.7-1.0) mg/dL Estim Creat Clear Calc 67 ml/min Estimated GFR > 60 (59 - ) Glucose 94 (65-110) mg/dL Lactic Acid 1.1 (0.7-2.0) mmol/L Calcium 7.8 L (8.4-10.2) mg/dL Total Bilirubin 0.5 (0.2-1.3) mg/dL AST 26 (14-36) U/L ALT 19 (6-35) U/L Alkaline Phosphatase 117 (38-126) U/L Troponin I 0.077 H* (0.000-0.034) ng/mL NT-Pro-B Natriuret Pep 8890 H (19.9-100) pg/mL Total Protein 5.0 L (6.3-8.2) g/dL Albumin 2.4 L (3.5-5.1) g/dL Urine Color Yellow (Yellow) Urine Appearance Cloudy H (Clear) Urine pH 5.5 (5.0-9.0) Ur Specific Kimball 1.036 H (1.001-1.035) Urine Protein 1+ H (Negative) mg/dL Urine Glucose (UA) Negative (Negative) mg/dL Urine Ketones 1+ H (Negative) mg/dL Ur Blood (Man) Negative (Negative) Urine Nitrate Negative (Negative) Urine Bilirubin Negative (Negative) Urine Urobilinogen 1.0 (<2.0) mg/dL Leukocyte Esterase Rfl 2+ H (Negative) EDUARDO/UL Urine RBC 0-2 (0-2) /hpf Urine WBC >100 H (0-3) /hpf Ur Squamous Epith Cells None seen (Few) /hpf Urine Bacteria None seen /hpf Urine Casts 3-5 Nasal MRSA (PCR) 11/14/24 Range/Units 15:22 WBC (4.5-10.0) K/mm3 RBC (4.2-5.4) M/mm3 Hgb (12.0-15.0) g/dL Hct (37.0-47.0) % MCV (80-100) fl MCH (26-34) pg MCHC (32-36) g/dl RDW (11.5-14.5) % Plt Count (150-375) k/mm3 MPV (7.4-10.4) fl Immature Gran % (Auto) (0-0.5) % Neut % (Auto) (45.5-73.1) % Lymph % (Auto) (18.3-44.2) % Mills % (Auto) (2.6-8.5) % Eos % (Auto) (0-4.4) % Baso % (Auto) (0.2-1.2) % Lymph # (Auto) (0.9-3.2) K/mm3 Mills # (Auto) (0.1-0.6) K/mm3 Eos # (Auto) (0-0.3) K/mm3 Baso # (Auto) (0.0-0.1) K/mm3 Abs Immat Gran (auto) (0.00-0.031) K/mm3 Absolute Neuts (auto) (1.3-6.7) K/mm3 Absolute Nucleated RBC (0.0-0.012) K/mm3 Band Neutrophils % Nucleated RBC % (0.0-0.2) % Atypical Lymphocytes Platelet Estimate (Adequate) Polychromasia Anisocytosis Schistocytes PT (11.1-14.7) Seconds INR Sodium (137-145) mmol/L Potassium (3.4-5.0) mmol/L Chloride (98-107) mmol/L Carbon Dioxide (22-30) mmol/L Anion Gap (4-12) mmol/L BUN (7-17) mg/dL Creatinine (0.7-1.0) mg/dL Estim Creat Clear Calc ml/min Estimated GFR (59 - ) Glucose (65-110) mg/dL Lactic Acid (0.7-2.0) mmol/L Calcium (8.4-10.2) mg/dL Total Bilirubin (0.2-1.3) mg/dL AST (14-36) U/L ALT (6-35) U/L Alkaline Phosphatase (38-126) U/L Troponin I (0.000-0.034) ng/mL NT-Pro-B Natriuret Pep (19.9-100) pg/mL Total Protein (6.3-8.2) g/dL Albumin (3.5-5.1) g/dL Urine Color (Yellow) Urine Appearance (Clear) Urine pH (5.0-9.0) Ur Specific Kimball (1.001-1.035) Urine Protein (Negative) mg/dL Urine Glucose (UA) (Negative) mg/dL Urine Ketones (Negative) mg/dL Ur Blood (Man) (Negative) Urine Nitrate (Negative) Urine Bilirubin (Negative) Urine Urobilinogen (<2.0) mg/dL Leukocyte Esterase Rfl (Negative) EDUARDO/UL Urine RBC (0-2) /hpf Urine WBC (0-3) /hpf Ur Squamous Epith Cells (Few) /hpf Urine Bacteria /hpf Urine Casts Nasal MRSA (PCR) Pending Imaging Data Radiologist's impression: ITS Impressions Chest X-Ray 11/14/24 13:37 IMPRESSION: Bilateral pneumonia with highly suggestive underlying pulmonary edema. Right pleural effusion. Chest/Abdomen/Pelvis CT 11/14/24 15:25 IMPRESSION: Mural thickening and edema within the distal sigmoid colon and rectum, with infiltration of the presacral fat. Large bilateral pleural effusions, right greater than left. Left basilar consolidation. Hepatomegaly. ECG Data EKG #1: ECG completion date: 11/14/24 ECG completion time: 13:01 EKG Interpretation: normal rate (96), no ST changes and other (T wave inversion in V3,4,5) Discharge Plan Discharge Clinical Impression: Pleural effusion, Hypoxia, Acute UTI, Elevated troponin I level Patient Disposition: Still a Patient Condition: Stable Patient Language: Japanese Prescriptions: No Action acetaminophen 500 mg capsule 1,000 mg PO Q6H amiodarone 200 mg tablet 200 mg PO DAILY azelastine 137 mcg (0.1 %) spray,non-aerosol 2 spray intranasal Q12H PRN (Reason: runny nose) Rx Instructions: administer into each nostril clotrimazole-betamethasone 1-0.05 % cream 1 applic topical BID Rx Instructions: apply to buttocks diphenhydramine HCl [Banophen] 25 mg tablet 25 mg PO HS ferrous sulfate [Feosol] 325 mg (65 mg iron) tablet 325 mg PO DAILY fluticasone propionate [24 Hour Allergy Relief] 50 mcg/actuation spray,suspension 1 spray intranasal BID PRN (Reason: allergy symptoms) Rx Instructions: administer into each nostril lidocaine 5 % adhesive patch,medicated 2 patch topical DAILY Rx Instructions: leave on most painful area for up to 12 hrs methocarbamol 750 mg tablet 1,500 mg PO TID nystatin 100,000 unit/mL suspension 5 ml PO QID Rx Instructions: swish and spit pramipexole 0.5 mg tablet 0.5 mg PO BID pregabalin [Lyrica] 150 mg capsule 150 mg PO BID trazodone 50 mg tablet 50 mg PO HS warfarin 2.5 mg tablet 2.5 mg PO DAILY triamcinolone acetonide [Triderm] 0.5 % cream 1 applic topical DAILY PRN (Reason: rash) Patient Comments: apply to rash albuterol sulfate 2.5 mg /3 mL (0.083 %) Solution For Nebulization 2.5 mg inhalation Q6HRT PRN (Reason: Shortness Of Breath) Qty: 0 0RF acetazolamide 250 mg Tablet 500 mg PO DAILY@1700 Qty: 0 0RF levofloxacin 250 mg Tablet 750 mg PO DAILY Qty: 0 0RF bumetanide 1 mg Tablet 2 mg PO DAILY@0900,1700 Qty: 0 0RF oxycodone 5 mg Tablet 10 mg PO Q4H PRN (Reason: pain--MODERATE-SEVERE) Qty: 12 0RF sodium chloride 1,000 mg Tablet,Soluble 1,000 mg PO DAILY@0900,1700 Qty: 0 0RF Follow-up/Referrals: PHYSICIAN NOT ON STAFF,NONSTAFF [Primary Care Provider] - Time of Disposition: 16:30
[2024-11-14 14:32] LABS: Add Urine Microscopic? YES; Appearance Urine Cloudy (Clear); Bacteria Urine None Seen /hpf; Bilirubin Urine Negative (Negative); Blood Urine Negative (Negative); Color Urine Yellow (Yellow); Glucose Urine UA Negative (Negative); Ketones Urine 1+ mg/dL (Negative); Leukocyte Esterase Ur 2+ LEU/UL (Negative); Nitrate Urine Negative (Negative); Protein Urine 1+ mg/dL (Negative); RBC Urine 0-2 /hpf (0-2); Specific Grav Ur 1.036 (1.001-1.035); Squamous Epithelial Cell Urine None Seen /hpf (Few); WBC Urine >100 /hpf (0-3); pH Urine 5.5 (5.0-9.0)
--- NOTE | 2024-11-14 14:45 | PC.NURSE ---
called lab to add on BNP
[2024-11-14 14:56] VITALS: BP 83/51; PULSE 96; RESP 18; O2SAT 94
[2024-11-14] MEDS: ALBUMIN HUMAN 25% 25 GM/100 ML 100 ML IVPB (14:56)
[2024-11-14 15:03] LABS: NT Pro B Type Natriuretic Pept 8890 pg/mL (19.9-100)
--- NOTE | 2024-11-14 15:37 | P.HP_ITS ---
H&P: HPI History of Present Illness Date/Time: 11/14/24 15:37 Chief Complaint: hypotension Narrative: 79-year-old female who presents the hospital with hypotension. She was on her way from rehab to SNF however this midfoot take her due to her hypotension. She is awake and alert and oriented x4. In September she went in for a total spinal fusion due to severe kyphosis at [facility]. Her hospital course was extremely complicated due to congestive heart failure and a water weight gain of about 40 lb and C diff infection. Patient had no complaints at the time of admission, and she did not feel that she needed to come to the hospital. Patient denies nausea vomiting fever chills or diarrhea. In the ED the patient leukocytosis at 10.1, hemoglobin of 9.0, INR of 1.6, sodium of 132, carbon dioxide over 40, calcium of 7.8, troponin of 0.077 with repeat being 0.063, BNP of 8890, total protein of 5.0 and albumin of 2.4, UA shows cloudy, negative for nitrates, 2+ leukocyte esterase and over a 100 wbc's with no squamous cells. Chest x-ray shows Bilateral pneumonia with highly suggestive underlying pulmonary edema and right pleural effusion. In the ED her pressure was 82/43 with a map of 56 she was given a fluid bolus with very little improvement she was then given albumin and midodrine. Review of Systems Review of Systems: 12 systems were reviewed and are negativ e except for as per HPI. [facility] Past Medical History Medical History Cervicothoracic kyphosis RLS (restless legs syndrome) Chronic hyponatremia C. difficile diarrhea Bradycardia HTN (hypertension) Family History Family History (Updated 11/14/24 @ 18:43 by Camelia Cano RN) Mother Aortic valve replaced Social History Social History Smoking status: Never smoker Alcohol intake: never Substance use: never Do You Feel Safe in your Home?: Yes Lack of Transportation: No Lack of Food: Never True Current Housing: I Have Housing Concerned About Future Housing: No Difficulty Paying Gas/Electric Bills: No Difficulty Paying for Meds: YES Currently Unemployed: No Education: Bachelor's Degree Difficulty w/ Childcare or Family Care: No Spiritual care concerns: No Meds Home Medications and Allergies Home Medications ?Medication ?Instructions ?Recorded ?Confirmed ?Type acetaminophen 500 mg capsule 1,000 mg PO Q6H 10/29/24 11/14/24 History amiodarone 200 mg tablet 200 mg PO DAILY 10/29/24 11/14/24 History azelastine 137 mcg (0.1 %) nasal 2 spray intranasal Q12H PRN runny 10/29/24 11/14/24 History spray nose clotrimazole-betamethasone 1 1 applic topical BID 10/29/24 11/14/24 History %-0.05 % topical cream diphenhydramine HCl 25 mg tablet 25 mg PO HS 10/29/24 11/14/24 History (Banophen) ferrous sulfate 325 mg (65 mg 325 mg PO DAILY 10/29/24 11/14/24 History iron) tablet (Feosol) fluticasone propionate 50 1 spray intranasal BID PRN allergy 10/29/24 11/14/24 History mcg/actuation nasal symptoms spray,suspension (24 Hour Allergy Relief) lidocaine 5 % topical patch 2 patch topical DAILY 10/29/24 11/14/24 History methocarbamol 750 mg tablet 1,500 mg PO TID 10/29/24 11/14/24 History nystatin 100,000 unit/mL oral 5 ml PO QID 10/29/24 11/14/24 History suspension pramipexole 0.5 mg tablet 0.5 mg PO BID 10/29/24 11/14/24 History pregabalin 150 mg capsule (Lyrica) 150 mg PO BID 10/29/24 11/14/24 History trazodone 50 mg tablet 50 mg PO HS 10/29/24 11/14/24 History triamcinolone acetonide 0.5 % 1 applic topical DAILY PRN rash 10/29/24 11/14/24 History topical cream (Triderm) warfarin 2.5 mg tablet 2.5 mg PO DAILY 10/29/24 11/14/24 History acetazolamide 250 mg tablet 500 mg (2 x 250 mg) PO DAILY@1700 11/13/24 11/14/24 Rx #0 tabs albuterol sulfate 2.5 mg/3 mL 2.5 mg (3 mL) inhalation Q6HRT PRN 11/13/24 11/14/24 Rx (0.083 %) solution for nebulization Shortness Of Breath #0 mL bumetanide 1 mg tablet 2 mg (2 x 1 mg) PO DAILY@0900,1700 11/13/24 11/14/24 Rx #0 tabs levofloxacin 250 mg tablet 750 mg (3 x 250 mg) PO DAILY #0 11/13/24 11/14/24 Rx tabs oxycodone 5 mg tablet 10 mg (2 x 5 mg) PO Q4H PRN 11/13/24 11/14/24 Rx pain--MODERATE-SEVERE #12 tabs sodium chloride 1,000 mg soluble 1,000 mg PO DAILY@0900,1700 #0 tabs 11/13/24 11/14/24 Rx tablet Allergies Allergy/AdvReac Type Severity Reaction Status Date / Time metronidazole Allergy Hives Verified 10/29/24 18:24 adhesive tape AdvReac Mild itching Verified 10/29/24 18:24 formaldehyde AdvReac rash Verified 10/29/24 18:24 latex AdvReac Itching Verified 10/29/24 18:24 prednisone AdvReac Anxiety Verified 10/29/24 18:24 Vital Signs Vital Signs - 24 hr 11/14/24 12:13 11/14/24 14:56 Temperature 97.2 F L Pulse Rate 103 H 96 Respiratory Rate 18 18 Blood Pressure 82/43 L 83/51 L Pulse Oximetry 93 94 Oxygen Delivery Room Air Exam Narrative: General: Chronically ill-appearing no acute respiratory distress HEENT: normocephalic, atraumatic. Mucous membranes moist. EOMI, PERRLA, bilateral sclera anicteric, no conjunctival injection. Neck supple without JVD, lymphadenopathy, or bruit. Respiratory: clear to ascultation bilaterally. No rales/rhonic/wheezes. Cardiovascular: Regular rate and rhythm, normal S1-S2 upon ascultation. No murmurs, rubs, or clicks. PMI is nondisplaced, capillary refill less than 3 second. Abdomen: Soft, round, no pulsatile masses, nondistended and nontender. No rebound, no guarding. No CVA tenderness, no hepatosplenomegaly. Bowel sounds present to all four quadrants. No high pitch or tinkling sounds, resonant to percussion. Extremities: No cyanosis, clubbing, Pulses are palpable 2/2. Lower extremities week Neuro: Alert and orientated x 4. PERRLA. Cranial nerves 2-12 intact without focal deficit. Skin: Warm, dry, and intact, without rash, erythema, or lesion. Psych: pleasant, cooperative, normal speech, normal affect, no hallucinations, no dysarthia Anasarca H&P: Results Labs Labs: Short CBC 11/14/24 Range/Units 12:55 WBC 10.1 H (4.5-10.0) K/mm3 Hgb 9.0 L (12.0-15.0) g/dL Hct 30.1 L (37.0-47.0) % Plt Count 312 (150-375) k/mm3 BMP 11/14/24 12:55 Sodium 132 L Potassium 3.9 Chloride 90 L Carbon Dioxide > 40 H BUN 16 Creatinine 0.58 L Glucose 94 Calcium 7.8 L Cardiac Enzymes 11/14/24 Range/Units 12:55 Troponin I 0.077 H* (0.000-0.034) ng/mL Liver Function 11/14/24 Range/Units 12:55 Total Bilirubin 0.5 (0.2-1.3) mg/dL AST 26 (14-36) U/L ALT 19 (6-35) U/L Alkaline Phosphatase 117 (38-126) U/L Albumin 2.4 L (3.5-5.1) g/dL Urine 11/14/24 Range/Units 14:24 Urine Color Yellow (Yellow) Urine Appearance Cloudy H (Clear) Urine pH 5.5 (5.0-9.0) Ur Specific Sims 1.036 H (1.001-1.035) Urine Protein 1+ H (Negative) mg/dL Urine Glucose (UA) Negative (Negative) mg/dL Assessment and Plan Assessment and plan (1) Hypotension: Code(s): I95.9 - Hypotension, unspecified Status: Acute Assessment and Plan: Likely secondary to anasarca, fluid restriction and infection 1 L bolus given in ED 50 g albumin 2 g calcium Midodrine t.i.d. Blood cultures pending Hold acetazolmide and bumetanide (2) Pneumonia: Code(s): J18.9 - Pneumonia, unspecified organism Status: Acute Assessment and Plan: Started on cefepime and vancomycin for Hap (3) Pleural effusion: Code(s): J90 - Pleural effusion, not elsewhere classified Status: Acute Assessment and Plan: Right pleural effusion greater than left CT-guided thoracentesis Warfarin being held (4) Respiratory failure with hypoxia: Code(s): J96.91 - Respiratory failure, unspecified with hypoxia Status: Acute Assessment and Plan: Secondary to above Knee oxygen as able (5) UTI (urinary tract infection): Code(s): N39.0 - Urinary tract infection, site not specified Status: Acute Assessment and Plan: Antibiotics as above Culture and sensitivity pending (6) Cervicothoracic kyphosis: Code(s): M40.203 - Unspecified kyphosis, cervicothoracic region Status: Acute Assessment and Plan: Status post C3 to T1 surgery with jacqueline September 2024 Patient states that she has a shuffling gait PT OT eval and treat (7) Anasarca: Code(s): R60.1 - Generalized edema Status: Acute Assessment and Plan: Void aggressive IV hydration due to 3rd spacing, patient states that she gained 40 lb of water weight in September during her last hospitalization Dietary consulted Quality VTE Prophylaxis VTE prophylaxis: mechanical ordered Hospitalist MIPS Advance Care Plan I have confirmed that the patient's Advanced Care Plan is present, code status is documented, or surrogate decision maker is listed in patient medical record.: Yes Medication Reconciliation I have utilized all available resources to obtain, update and review the patients current medications (includes all prescriptions, OTC, herbals, cannab is, and nutritional supplements).: Yes
[2024-11-14] MEDS: CEFEPIME 2 GM/NS 50 ML 2 GM/50 ML BAG IVPB (15:53)
[2024-11-14 16:26] VITALS: BP 83/56; PULSE 90; RESP 26; RESP 33; O2SAT 96; O2SAT 97
[2024-11-14] MEDS: VANCOMYCIN 1,750 MG/NS 500 ML 1,750 MG/500 ML BAG 250 MG IVPB (16:26)
[2024-11-14 16:34] LABS: MRSA (PCR) NOT DETECTED (NOT DETECTE)
--- NOTE | 2024-11-14 16:36 | ECG_ITS ---
Test Date: 2024-11-14 16:44:03 Measurements Intervals [place] Rate: 90 P: 0 SD: 0 QRS: 37 QRSD: 92 T: 233 QT: 394 QTc: 483 Interpretive Statements ATRIAL FIBRILLATION EARLY PRECORDIAL R/S TRANSITION ST-T WAVE ABNORMALITY IN ANTEROLAT/INF LEADS- CONSIDER ISCHEMIA BASELINE ARTIFACT- I, II, III, AVR, AVL, AVF, V1 ABNORMAL ECG Compared to ECG 11/14/2024 13:01:36 No significant changes Electronically Signed On 11-14-2024 16:52:54 CDT by Adi Madrigal D.O.
[2024-11-14 17:06] VITALS: BP 96/64; PULSE 90; RESP 16; O2SAT 96
[2024-11-14 17:15] LABS: Troponin I 0.063 ng/mL (0.000-0.034)
[2024-11-14] MEDS: SODIUM CHLORIDE 0.9% IV 1,000 ML 75 ML IV CONT (17:34)
[2024-11-14 18:27] VITALS: BMI 28.0
--- NOTE | 2024-11-14 18:28 | ADMGEN ---
This patient, Tammy Estrella, was admitted to IMU Room 204-01 at 1748. Patient/family oriented to hospital policies and general routines including ID bracelet, bed and alarms, visiting hours, pain management, procedures, bathroom and other care routines, personal items, smoking policy, room service/diet, and visiting hours. Information on how to activate the Rapid Response Team has been discussed. Patient/Family are encouraged to report perceived risks to care and to ask questions if they do not understand what they are told or what they should do.
[2024-11-14 20:00] VITALS: BP 103/58; PULSE 94; PULSE 98; RESP 18; TEMP 36.5; O2SAT 100
[2024-11-14] MEDS: oxyCODONE HCL (*CRX) 5 MG TAB IR PO (20:23)
[2024-11-14] MEDS: MIDODRINE HCL 10 MG TABLET PO (20:23)
[2024-11-14] MEDS: CALCIUM GLUC 2,000 MG/NS 100ML 2,000 MG/100 ML BAG 100 MG IVPB (20:23)
[2024-11-14 22:00] VITALS: PULSE 100
[2024-11-14 23:12] LABS: Troponin I 0.055 ng/mL (0.000-0.034)
[2024-11-14] MEDS: PIPERACILLIN/TAZ 4.5G/NS 100ML 4.5 GM/100 ML BAG IVPB (23:45)
[2024-11-15] VITALS (16 sets, daily range): BP systolic 104–130; BP diastolic 45–67; PULSE 81–109; RESP 18–20; TEMP 36.7–37.1; O2SAT 95–100; BMI 26.7
--- NOTE | 2024-11-15 | ECHO_ITS ---
Patient Info Name: Tammy Estrella Age: 79 years : 1945 Gender: Female Ht: 65 in Wt: 160 lbs BSA: 1.84 m2 HR: 101 bpm BP: 127 / 67 mmHg Technical Quality: Good Exam Date: 11/15/2024 1:52 PM Exam Location: Echo Lab Patient Status: Inpatient Admit Date: 11/14/2024 Staff Ordering Physician: Rosita San MD Auto Tune Up Mechanic: Vero Nazario RDCS Attending Provider: Rosita San MD Exam Type: CA echo doppler color flow Study Info Indications - CHF Complete two-dimensional, color flow and Doppler transthoracic echocardiogram is performed. Summary 1. Complete two-dimensional, color flow and Doppler transthoracic echocardiogram is performed. 2. There is normal biventricular size and systolic function. 3. The left ventricle has grade 2 diastolic dysfunction. 4. There is moderate pulmonary hypertension with a calculated PASP 67 mm Hg. Left Ventricle The left ventricle is normal in size and systolic function. The left ventricular ejection fraction is visually estimated to be 60-65%. There is grade 2 diastolic dysfunction. Right Ventricle The right ventricle is normal in size and systolic function. Left Atria The left atrium is mildly dilated. Right Atria The right atrium is mildly dilated. Atrial Septum The atrial septum appears normal. Aortic Valve The aortic valve is probably trileaflet and opens well. There is no aortic regurgitation. Pulmonic Valve The pulmonic valve is not well visualized. There is no color Doppler evidence of pulmonic valve regurgitation. Mitral Valve The mitral valve leaflets are sclerotic but opens well. There is severe posterior annular calcification. There is mild mitral regurgitation. Tricuspid Valve The tricuspid valve is grossly normal. There is moderate tricuspid regurgitation. There is moderate pulmonary hypertension. The PASP is calculated to be 67 mm Hg. Pericardium/Pleural Pericardium is normal in appearance with no evidence for significant pericardial effusion. Inferior Vena Cava Dilated inferior vena cava with >50% collapse upon inspiration consistent with elevated right atrial pressure, 10 mmHg. Aorta The aortic root at the level of the sinus of Valsalva measures 2.6 cm in diameter. Left Ventricular Outflow Tract Name Value Normal LVOT 2D LVOT Diameter 1.8 cm LVOT Doppler LVOT Peak Gradient 4 mmHg LVOT Mean Gradient 2 mmHg LVOT VTI 18 cm LVOT VTI/AV VTI Ratio 0.6 LVOT Stroke Volume 45 ml LVOT CO 11.4 l/min LVOT CI 6.2 l/min/m2 Pulmonic Valve Name Value Normal PV Doppler PV Peak Gradient 3 mmHg Mitral Valve Name Value Normal MV Doppler MV Peak Gradient 9 mmHg MV Mean Gradient 3 mmHg MV Decel Kern 570 cm/s2 MV PHT 70 ms MV Area (PHT) 3.1 cm2 4.0-5.0 MV Area (Cont Eq VTI) 1.7 cm2 MV Diastolic Function MV E Peak Velocity 137 cm/s MV A Peak Velocity 4 cm/s MV E/A 35.6 MV Decel Time 241 ms MV Annular TDI MV E/e' (Septal) 17.1 <=8.0 MV E/e' (Lateral) 15.2 <=8.0 MV E/e' (Average) 16.1 Tricuspid Valve Name Value Normal TV Regurgitation Doppler TR Peak Velocity 377 cm/s TR Peak Gradient 52 mmHg Estimated PAP/RSVP RA Pressure 10 mmHg <=5 PA Systolic Pressure 67 mmHg <36 RV Systolic Pressure 67 mmHg <36 Aorta Name Value Normal Ascending Aorta Ao Root Diameter (MM) 2.9 cm Ao Root Diam Index (MM) 1.6 cm/m2 Aortic Valve Name Value Normal AV Doppler AV Peak Velocity 182 cm/s AV Peak Gradient 13 mmHg AV Mean Gradient 6 mmHg AV VTI 31 cm AV Area (Cont Eq VTI) 1.5 cm2 >=3.0 AV Area (Cont Eq Blake) 1.4 cm2 AV Regurgitation 2D LVOT Area 2.5 cm2 Ventricles Name Value Normal LV Dimensions 2D/MM IVS Diastolic Thickness (2D) 1.0 cm 0.6-1.0 LVID Diastole (2D) 4.2 cm 3.8-5.2 LVIW Diastolic Thickness (2D) 0.9 cm 0.6-0.9 LVID Systole (2D) 2.7 cm 2.2-3.5 LVOT Diameter 1.8 cm LV Mass (2D Cubed) 129.71 g 67.00-162.00 LV Mass Index (2D Cubed) 70 g/m2 43-95 Relative Wall Thickness (2D) 0.41 LV Fractional Shortening/Ejection Fraction 2D/MM LV Fractional Shortening (2D) 37 % 27-45 LV EF (2D Teicholz) 67 % 54-74 LV Diastolic Volume (4C MOD) 35 ml LV EF (4C MOD) 68 % LV Diastolic Volume (2C MOD) 43 ml LV EF (2C MOD) 63 % LV Diastolic Volume (BP MOD) 40 ml 46-106 LV Diastolic Volume Index (BP MOD) 22 ml/m2 29-61 LV Systolic Volume (BP MOD) 14 ml 14-42 LV Systolic Volume Index (BP MOD) 8 ml/m2 8-24 LV EF (BP MOD) 65 % 54-74 LV Diastolic Length (4C) 5.6 cm LV Systolic Length (4C) 4.6 cm LV Stroke Volume (4C MOD) 24 ml RV Dimensions 2D/MM RVID Diastole (2D) 4.0 cm 2.5-3.5 Atria Name Value Normal LA Dimensions LA Dimension (MM) 2.6 cm 2.7-3.8 LA Volume (4C A-L) 68 ml LA Volume (BP A-L) 62 ml RA Dimensions RA Area (4C) 20.1 cm2 <=18.0 Report Signatures
[2024-11-15 04:57] LABS: Basophils Absolute Auto 0.1 K/mm3 (0.0-0.1); Basophils Percent Auto 0.6 % (0.2-1.2); Eosinophils Percent Auto 0.2 % (0-4.4); Hematocrit 30.5 % (37.0-47.0); Hemoglobin 8.9 g/dL (12.0-15.0); Immature Granulocyte Absolute 0.09 K/mm3 (0.00-0.031); Lymphocytes Absolute Auto 1.58 K/mm3 (0.9-3.2); Lymphocytes Percent Auto 18.4 % (18.3-44.2); Mean Corpuscular HGB Conc 29.2 g/dl (32-36); Mean Corpuscular Hemoglobin 28.5 pg (26-34); Mean Corpuscular Volume 97.8 fl (80-100); Mean Platelet Volume 8.9 fl (7.4-10.4); Monocytes Absolute Auto 0.5 K/mm3 (0.1-0.6); Monocytes Percent Auto 6.3 % (2.6-8.5); Neutrophils Absolute Auto 6.3 K/mm3 (1.3-6.7); Neutrophils Percent Auto 73.5 % (45.5-73.1); Platelet Count Result 323 k/mm3 (150-375); Red Blood Count 3.12 M/mm3 (4.2-5.4); Red Cell Distribution Width 19.4 % (11.5-14.5); White Blood Count 8.6 K/mm3 (4.5-10.0)
[2024-11-15 05:15] LABS: Anion Gap 6 mmol/L (4-12); Blood Urea Nitrogen 13 mg/dL (7-17); Carbon Dioxide 33 mmol/L (22-30); Chloride 94 mmol/L (98-107); Estimated CRCL calculation 112 ml/min; Estimated Glomerular Filt Rate > 60; Glucose 103 mg/dL (65-110); Potassium 3.7 mmol/L (3.4-5.0); Sodium 133 mmol/L (137-145)
[2024-11-15 05:31] LABS: Anisocytosis 1+; Hypochromasia 1+; Platelet Estimate Adequate (Adequate); Schistocytes None Seen
[2024-11-15] MEDS: PIPERACILLIN/TAZ 4.5G/NS 100ML 4.5 GM/100 ML BAG IVPB ×3 (06:59→17:34)
[2024-11-15] MEDS: SODIUM CHLORIDE 0.9% IV 1,000 ML 75 ML IV CONT (07:53)
[2024-11-15] MEDS: VANCOMYCIN 1,250 MG/NS 250 ML 1,250 MG/250 ML BAG 166.67 MG IVPB (09:56)
[2024-11-15] MEDS: methocarbamoL 750 MG TABLET PO ×3 (09:57→17:33)
[2024-11-15] MEDS: SODIUM CHLORIDE 1 GM TABLET PO ×2 (09:57→17:37)
[2024-11-15] MEDS: AMIODARONE HCL 200 MG TABLET PO (09:57)
[2024-11-15] MEDS: PREGABALIN (*CRX) 75 MG CAPSULE 150 MG PO ×2 (09:57→17:33)
[2024-11-15] MEDS: MIDODRINE HCL 10 MG TABLET PO ×3 (09:58→17:33)
[2024-11-15] MEDS: FUROSEMIDE INJ 40 MG/4 ML VIAL IV PUSH ×2 (10:10→17:33)
--- NOTE | 2024-11-15 11:13 | P.CONCA_ITS ---
Assessment and Plan Assessment and plan (1) Atrial fibrillation with RVR: Code(s): I48.91 - Unspecified atrial fibrillation Status: Acute (2) Diastolic heart failure: Code(s): I50.30 - Unspecified diastolic (congestive) heart failure Status: Acute (3) Elevated troponin I level: Code(s): R79.89 - Other specified abnormal findings of blood chemistry Status: Acute Plan 79-year-old woman with chronic diastolic heart and paroxysmal atrial fibrillation (on warfarin) who was brought in due to hypotension Acute on chronic diastolic heart failure -continue Lasix 40 mg IV push b.i.d. -her shortness of breath and anasarca most likely multifactorial with contributions from diastolic heart failure, pneumonia, and hypo albumin state Paroxysmal atrial fibrillation -she is on warfarin at home -would recommend discussion with her outpatient surgeon to determine when she is safe for full anticoagulation -in the meantime continue amiodarone 200 mg p.o. daily for which she was discharged mostly for rate control Troponin elevation -the trend most likely is contributed due to volume overload with subsequent myocardial stress History of Present Illness History of Present Illness Consult date/time: 11/15/24 11:13 Requesting physician: Rosita San MD Consult reason: congestive heart failure Reason For Visit: pleural effusion, hypotension, uti Narrative: 79-year-old woman with chronic diastolic heart and paroxysmal atrial fibrillation (on warfarin) who was brought in due to hypotension. She does complain that in the last few days she has been having more shortness of breath. She has also been having some productive cough. She is still recovering from her cervical spine fusion surgery for which she currently cannot move her head. Otherwise she denies any chest discomfort. Per the patient she was previously hospitalized for 40 lb weight gain and water weight for which they have diuresed her. She is previously at [facility]. She feels that her shortness of breath has been mildly worse compared to when she was discharged from [facility]. Denies any syncopal events. Review of Systems 2 Cardiovascular: Cardiovascular: Reports as per HPI Respiratory: Respiratory: Reports as per HPI [facility]LY [facility], [facility] Past Medical History Medical History Cervicothoracic kyphosis RLS (restless legs syndrome) Chronic hyponatremia C. difficile diarrhea Bradycardia HTN (hypertension) Family History Family History (Updated 11/14/24 @ 18:43 by Camelia Cano RN) Mother Aortic valve replaced Social History Social History Smoking status: Never smoker Alcohol intake: never Substance use: never Do You Feel Safe in your Home?: Yes Lack of Transportation: No Lack of Food: Never True Current Housing: I Have Housing Concerned About Future Housing: No Difficulty Paying Gas/Electric Bills: No Difficulty Paying for Meds: YES Currently Unemployed: No Education: Bachelor's Degree Difficulty w/ Childcare or Family Care: No Spiritual care concerns: No Meds Home Medications and Allergies Home Medications ?Medication ?Instructions ?Recorded ?Confirmed ?Type acetaminophen 500 mg capsule 1,000 mg PO Q6H 10/29/24 11/14/24 History amiodarone 200 mg tablet 200 mg PO DAILY 10/29/24 11/14/24 History azelastine 137 mcg (0.1 %) nasal 2 spray intranasal Q12H PRN runny 10/29/24 11/14/24 History spray nose clotrimazole-betamethasone 1 1 applic topical BID 10/29/24 11/14/24 History %-0.05 % topical cream diphenhydramine HCl 25 mg tablet 25 mg PO HS 10/29/24 11/14/24 History (Banophen) ferrous sulfate 325 mg (65 mg 325 mg PO DAILY 10/29/24 11/14/24 History iron) tablet (Feosol) fluticasone propionate 50 1 spray intranasal BID PRN allergy 10/29/24 11/14/24 History mcg/actuation nasal symptoms spray,suspension (24 Hour Allergy Relief) lidocaine 5 % topical patch 2 patch topical DAILY 10/29/24 11/14/24 History methocarbamol 750 mg tablet 1,500 mg PO TID 10/29/24 11/14/24 History nystatin 100,000 unit/mL oral 5 ml PO QID 10/29/24 11/14/24 History suspension pramipexole 0.5 mg tablet 0.5 mg PO BID 10/29/24 11/14/24 History pregabalin 150 mg capsule (Lyrica) 150 mg PO BID 10/29/24 11/14/24 History trazodone 50 mg tablet 50 mg PO HS 10/29/24 11/14/24 History triamcinolone acetonide 0.5 % 1 applic topical DAILY PRN rash 10/29/24 11/14/24 History topical cream (Triderm) warfarin 2.5 mg tablet 2.5 mg PO DAILY 10/29/24 11/14/24 History acetazolamide 250 mg tablet 500 mg (2 x 250 mg) PO DAILY@1700 11/13/24 11/14/24 Rx #0 tabs albuterol sulfate 2.5 mg/3 mL 2.5 mg (3 mL) inhalation Q6HRT PRN 11/13/24 11/14/24 Rx (0.083 %) solution for nebulization Shortness Of Breath #0 mL bumetanide 1 mg tablet 2 mg (2 x 1 mg) PO DAILY@0900,1700 11/13/24 11/14/24 Rx #0 tabs levofloxacin 250 mg tablet 750 mg (3 x 250 mg) PO DAILY #0 11/13/24 11/14/24 Rx tabs oxycodone 5 mg tablet 10 mg (2 x 5 mg) PO Q4H PRN 11/13/24 11/14/24 Rx pain--MODERATE-SEVERE #12 tabs sodium chloride 1,000 mg soluble 1,000 mg PO DAILY@0900,1700 #0 tabs 11/13/24 11/14/24 Rx tablet Allergies Allergy/AdvReac Type Severity Reaction Status Date / Time metronidazole Allergy Hives Verified 10/29/24 18:24 adhesive tape AdvReac Mild itching Verified 10/29/24 18:24 formaldehyde AdvReac rash Verified 10/29/24 18:24 latex AdvReac Itching Verified 10/29/24 18:24 prednisone AdvReac Anxiety Verified 10/29/24 18:24 Vital Signs Vital Signs - 24 hr 11/14/24 12:13 11/14/24 14:56 11/14/24 16:26 Temperature 36.2 C L Pulse Rate 103 H 96 Respiratory Rate 18 18 26 H Blood Pressure 82/43 L 83/51 L Pulse Oximetry 93 94 96 Oxygen Delivery Room Air Oxygen Flow Rate 3 Fraction of Inspired Oxygen 11/14/24 16:26 11/14/24 17:06 11/14/24 20:00 Temperature 36.5 C Pulse Rate 90 90 94 Respiratory Rate 33 H 16 18 Blood Pressure 83/56 L 96/64 L 103/58 L Pulse Oximetry 97 96 100 Oxygen Delivery Oxygen Flow Rate Fraction of Inspired Oxygen 11/14/24 20:00 11/14/24 20:00 11/14/24 22:00 Temperature Pulse Rate 98 100 Respiratory Rate Blood Pressure Pulse Oximetry 100 Oxygen Delivery Nasal Cannula Oxygen Flow Rate 3 Fraction of Inspired Oxygen 11/15/24 00:00 11/15/24 00:00 11/15/24 00:00 Temperature 36.8 C Pulse Rate 88 101 H Respiratory Rate 20 Blood Pressure 104/45 L Pulse Oximetry 98 98 Oxygen Delivery Nasal Cannula Oxygen Flow Rate 3 Fraction of Inspired Oxygen 11/15/24 02:00 11/15/24 04:00 11/15/24 04:00 Temperature 36.8 C Pulse Rate 101 H 104 H Respiratory Rate 20 Blood Pressure 119/56 L Pulse Oximetry 98 100 Oxygen Delivery Nasal Cannula Oxygen Flow Rate 3 Fraction of Inspired Oxygen 11/15/24 04:00 11/15/24 06:00 11/15/24 08:00 Temperature 37.1 C Pulse Rate 109 H 104 H 100 Respiratory Rate 18 Blood Pressure 127/67 Pulse Oximetry 99 Oxygen Delivery Oxygen Flow Rate Fraction of Inspired Oxygen 11/15/24 08:25 11/15/24 09:57 Temperature Pulse Rate 105 H Respiratory Rate Blood Pressure Pulse Oximetry 97 Oxygen Delivery Nasal Cannula Oxygen Flow Rate 3 Fraction of Inspired Oxygen 32 Exam 2 Const: General: comfortable HENMT: Mouth: Yes moist mucous membranes Eyes: EOM: EOMs intact bilaterally Neck: Other: JVD 8-10 cm Resp: Effort & Inspection: normal respiratory effort Auscultation: rales Cardio: Rate: tachycardic Rhythm: abnormal rhythm GI: GI Palp: Yes Soft to palpation Extrem: General: edema and pedal edema Results Labs and Meds 11/15/24 04:12 11/15/24 04:12 Lab results: Cardiac Enzymes 11/14/24 11/14/24 11/14/24 Range/Units 12:55 16:43 22:35 AST 26 (14-36) U/L Troponin I 0.077 H* 0.063 H* 0.055 H* (0.000-0.034) ng/mL Coagulation 11/14/24 Range/Units 12:55 PT 19.1 H (11.1-14.7) Seconds CBC 11/14/24 11/15/24 Range/Units 12:55 04:12 WBC 10.1 H 8.6 (4.5-10.0) K/mm3 RBC 3.15 L 3.12 L (4.2-5.4) M/mm3 Hgb 9.0 L 8.9 L (12.0-15.0) g/dL Hct 30.1 L 30.5 L (37.0-47.0) % Plt Count 312 323 (150-375) k/mm3 Lymph # (Auto) 1.98 1.58 (0.9-3.2) K/mm3 [place] # (Auto) 0.6 0.5 (0.1-0.6) K/mm3 Eos # (Auto) 0.0 0.0 (0-0.3) K/mm3 Baso # (Auto) 0.0 0.1 (0.0-0.1) K/mm3 Comprehensive Metabolic Panel 11/14/24 11/15/24 Range/Units 12:55 04:12 Sodium 132 L 133 L (137-145) mmol/L Potassium 3.9 3.7 (3.4-5.0) mmol/L Chloride 90 L 94 L (98-107) mmol/L Carbon Dioxide > 40 H 33 H (22-30) mmol/L BUN 16 13 (7-17) mg/dL Creatinine 0.58 L 0.34 L (0.7-1.0) mg/dL Glucose 94 103 (65-110) mg/dL Calcium 7.8 L 8.0 L (8.4-10.2) mg/dL AST 26 (14-36) U/L ALT 19 (6-35) U/L Alkaline Phosphatase 117 (38-126) U/L Total Protein 5.0 L (6.3-8.2) g/dL Albumin 2.4 L (3.5-5.1) g/dL Intake and Output 11/14/24 11/15/24 11/15/24 23:59 07:59 15:59 Intake Total 150 1580 Output Total 425 Balance 150 1155 Intake: IV 150 1100 Sodium Chloride 0.9% IV 1,000 1000 ml @ 75 mls/hr IV CONT .[id number] [facility] Rx#:[id number] Albumin Human 25% 25 gm/100 ml 100 100 ml @ 60 mls/hr IVPB ONCE ONE Rx#:[id number] Cefepime 2 gm/Ns 50 ml 2 gm In 50 50 ml @ 100 mls/hr IVPB ONCE ONE Rx#:[id number] Piperacillin/Mac 4.5G/Ns 100Ml 100 4.5 gm In 100 ml @ 200 mls/hr IVPB Q6HR [facility] Rx#:[id number] Oral 480 Output: Catheter Urine 425 Urethral Catheter 425 Patient Weight 11/15/24 23:59 Weight 73 kg
--- NOTE | 2024-11-15 14:09 | P.PNIM_ITS ---
Progress Note: A&P Assessment and Plan (1) Hypotension: Code(s): I95.9 - Hypotension, unspecified Status: Acute Assessment and Plan: resolved likely from pneumonia monitor (2) Pneumonia: Code(s): J18.9 - Pneumonia, unspecified organism Status: Acute Assessment and Plan: CT chest reviewed MRSA negative Blood culture pending Stopped Vanc Continue Cefepime (3) Pleural effusion: Code(s): J90 - Pleural effusion, not elsewhere classified Status: Acute Assessment and Plan: Right pleural effusion greater than left CT-guided thoracentesis Warfarin being held [facility] and Us liver ordered continue lasix in the meantime (4) Respiratory failure with hypoxia: Code(s): J96.91 - Respiratory failure, unspecified with hypoxia Status: Acute Assessment and Plan: Likely CHF and pneumonia Patient has positive JVD and bilateral edema 5++ CT chest showed large bilateral effusions and left basilar consolidation On Lasix 40mg BId Continue Cefepime titrate oxygen Monitor (5) UTI (urinary tract infection): Code(s): N39.0 - Urinary tract infection, site not specified Status: Acute Assessment and Plan: Antibiotics as above Culture and sensitivity pending (6) Cervicothoracic kyphosis: Code(s): M40.203 - Unspecified kyphosis, cervicothoracic region Status: Acute Assessment and Plan: Status post C3 to T1 surgery with jacqueline September 2024 Patient states that she has a shuffling gait PT OT eval and treat (7) Anasarca: Code(s): R60.1 - Generalized edema Status: Acute Assessment and Plan: continue above care Plan DVT prophylaxis on SCDs, warfarin on hold for thoracentesis Subjective Date/time seen: 11/15/24 14:09 Interval history: comfortable at bedside on supplemental oxygen Review of Systems Review of Systems: 12 systems were reviewed and are negativ e except for as per HPI. Exam Narrative: General: Chronically ill-appearing no acute respiratory distress HEENT: normocephalic, atraumatic. Mucous membranes moist. EOMI, PERRLA, bilateral sclera anicteric, no conjunctival injection. Neck supple without JVD, lymphadenopathy, or bruit. Respiratory: clear to ascultation bilaterally. No rales/rhonic/wheezes. Cardiovascular: Regular rate and rhythm, normal S1-S2 upon ascultation. No murmurs, rubs, or clicks. PMI is nondisplaced, capillary refill less than 3 second. Abdomen: Soft, round, no pulsatile masses, nondistended and nontender. No rebound, no guarding. No CVA tenderness, no hepatosplenomegaly. Bowel sounds present to all four quadrants. No high pitch or tinkling sounds, resonant to percussion. Extremities: bilateral LE edema grade 5 Neuro: Alert and orientated x 4. PERRLA. Cranial nerves 2-12 intact without focal deficit. Skin: Warm, dry, and intact, without rash, erythema, or lesion. Psych: pleasant, cooperative, normal speech, normal affect, no hallucinations, no dysarthia Objective Data Vital Signs Vital Signs: Vital Signs - 24 hr 11/14/24 14:56 11/14/24 16:26 11/14/24 16:26 Temperature Pulse Rate 96 90 Respiratory Rate 18 26 H 33 H Blood Pressure 83/51 L 83/56 L Pulse Oximetry 94 96 97 Oxygen Delivery Oxygen Flow Rate 3 Fraction of Inspired Oxygen 11/14/24 17:06 11/14/24 20:00 11/14/24 20:00 Temperature 97.7 F Pulse Rate 90 94 Respiratory Rate 16 18 Blood Pressure 96/64 L 103/58 L Pulse Oximetry 96 100 100 Oxygen Delivery Nasal Cannula Oxygen Flow Rate 3 Fraction of Inspired Oxygen 11/14/24 20:00 11/14/24 22:00 11/15/24 00:00 Temperature 98.2 F Pulse Rate 98 100 88 Respiratory Rate 20 Blood Pressure 104/45 L Pulse Oximetry 98 Oxygen Delivery Oxygen Flow Rate Fraction of Inspired Oxygen 11/15/24 00:00 11/15/24 00:00 11/15/24 02:00 Temperature Pulse Rate 101 H 101 H Respiratory Rate Blood Pressure Pulse Oximetry 98 Oxygen Delivery Nasal Cannula Oxygen Flow Rate 3 Fraction of Inspired Oxygen 11/15/24 04:00 11/15/24 04:00 11/15/24 04:00 Temperature 98.3 F Pulse Rate 104 H 109 H Respiratory Rate 20 Blood Pressure 119/56 L Pulse Oximetry 98 100 Oxygen Delivery Nasal Cannula Oxygen Flow Rate 3 Fraction of Inspired Oxygen 11/15/24 06:00 11/15/24 08:00 11/15/24 08:00 Temperature 98.7 F Pulse Rate 104 H 100 Respiratory Rate 18 Blood Pressure 127/67 Pulse Oximetry 99 98 Oxygen Delivery Nasal Cannula Oxygen Flow Rate 3 Fraction of Inspired Oxygen 11/15/24 08:00 11/15/24 08:25 11/15/24 09:57 Temperature Pulse Rate 107 H 105 H Respiratory Rate Blood Pressure Pulse Oximetry 97 Oxygen Delivery Nasal Cannula Oxygen Flow Rate 3 Fraction of Inspired Oxygen 32 11/15/24 10:00 11/15/24 12:00 Temperature 98.1 F Pulse Rate 95 100 Respiratory Rate 18 Blood Pressure 124/66 Pulse Oximetry 100 Oxygen Delivery Oxygen Flow Rate Fraction of Inspired Oxygen Intake/Output Intake/Output: Intake & Output 11/12/24 11/13/24 11/14/24 11/15/24 23:59 23:59 23:59 23:59 Intake Total 650 2050 Output Total 425 Balance 650 1625 Meds/Results Medications: Active Medications Generic Name Dose Route Start Last Admin Trade Name Freq PRN Reason Stop Dose Admin Acetaminophen 650 mg 11/14/24 14:34 Acetaminophen 325 Mg Tablet PO Q4H PRN Mild Pain (1-3) or Fever Amiodarone HCl 200 mg 11/15/24 09:00 11/15/24 09:57 Amiodarone Hcl 200 Mg Tablet PO 200 mg DAILY JOSEPH Administration Furosemide 40 mg 11/15/24 10:00 11/15/24 10:10 Furosemide Inj 40 Mg/4 Ml Vial IV PUSH 40 mg BID JOSEPH Administration Piperacillin Sod/Tazobactam Sod 4.5 gm in 100 mls @ 200 mls/hr 11/15/24 00:00 11/15/24 12:58 Zosyn 4.5 Gm/Ns 100 Ml IVPB 200 mls/hr Q6HR JOSEPH Administration Lidocaine 2 patch 11/15/24 21:00 Lidocaine 5% Patch TOPICAL HS JOSEPH Methocarbamol 750 mg 11/15/24 09:00 11/15/24 13:01 Methocarbamol 750 Mg Tablet PO 750 mg TID JOSEPH Administration Midodrine 10 mg 11/14/24 17:00 11/15/24 13:01 Midodrine Hcl 10 Mg Tablet PO 10 mg TID JOSEPH Administration Miscellaneous Information 0 each 11/14/24 00:01 Lidoderm Patch Please Add Site Of Use XX 12/14/24 00:00 [facility] Ondansetron HCl 4 mg 11/14/24 16:32 Ondansetron Inj 4 Mg/2 Ml Vial IV PUSH Q4H PRN Nausea Oxycodone HCl 5 mg 11/14/24 18:25 11/14/24 20:23 Oxycodone Hcl (*Crx) 5 Mg Tab Ir PO 5 mg Q4H PRN Administration pain--MODERATE-SEVERE 4-10 Perflutren Lipid Microsphere 0 ml 11/15/24 09:32 Perflutren Lipid Microspheres 1.5 Ml Vial Diluted To 10 Ml Total Volume IV PUSH 11/18/24 09:32 ONCE PRN adequate visualization Protocol Pregabalin 150 mg 11/15/24 09:00 11/15/24 09:57 Pregabalin (*Crx) 75 Mg Capsule PO 150 mg BID JOSEPH Administration Sodium Chloride 1 gm 11/15/24 09:00 11/15/24 09:57 Sodium Chloride 1 Gm Tablet PO 1 gm DAILY@0900,1700 JOSEPH Administration Radiology Results: ITS Impressions Chest X-Ray 11/14/24 13:37 IMPRESSION: Bilateral pneumonia with highly suggestive underlying pulmonary edema. Right pleural effusion. Chest/Abdomen/Pelvis CT 11/14/24 15:25 IMPRESSION: Mural thickening and edema within the distal sigmoid colon and rectum, with infiltration of the presacral fat. Large bilateral pleural effusions, right greater than left. Left basilar consolidation. Hepatomegaly. Labs Labs: Laboratory Results - last 24 hr 11/14/24 11/14/24 11/14/24 12:52 14:24 15:22 WBC RBC Hgb Hct MCV MCH MCHC RDW Plt Count MPV Immature Gran % (Auto) Neut % (Auto) Lymph % (Auto) [place] % (Auto) Eos % (Auto) Baso % (Auto) Lymph # (Auto) [place] # (Auto) Eos # (Auto) Baso # (Auto) Abs Immat Gran (auto) Absolute Neuts (auto) Absolute Nucleated RBC Band Neutrophils % Nucleated RBC % Platelet Estimate Hypochromasia Anisocytosis Schistocytes Sodium Potassium Chloride Carbon Dioxide Anion Gap BUN Creatinine Estim Creat Clear Calc Estimated GFR Glucose Calcium Troponin I NT-Pro-B Natriuret Pep 8890 H Urine Color Yellow Urine Appearance Cloudy H Urine pH 5.5 Ur Specific [place] 1.036 H Urine Protein 1+ H Urine Glucose (UA) Negative Urine Ketones 1+ H Ur Blood (Man) Negative Urine Nitrate Negative Urine Bilirubin Negative Urine Urobilinogen 1.0 Leukocyte Esterase Rfl 2+ H Urine RBC 0-2 Urine WBC >100 H Ur Squamous Epith Cells None seen Urine Bacteria None seen Urine Casts 3-5 Nasal MRSA (PCR) Not detected 11/14/24 11/14/24 11/15/24 16:43 22:35 04:12 WBC 8.6 RBC 3.12 L Hgb 8.9 L Hct 30.5 L MCV 97.8 MCH 28.5 MCHC 29.2 L RDW 19.4 H Plt Count 323 MPV 8.9 Immature Gran % (Auto) 1.0 H Neut % (Auto) 73.5 H Lymph % (Auto) 18.4 [place] % (Auto) 6.3 Eos % (Auto) 0.2 Baso % (Auto) 0.6 Lymph # (Auto) 1.58 [place] # (Auto) 0.5 Eos # (Auto) 0.0 Baso # (Auto) 0.1 Abs Immat Gran (auto) 0.09 H Absolute Neuts (auto) 6.3 Absolute Nucleated RBC 0.000 Band Neutrophils % Not Reportable Nucleated RBC % 0.0 Platelet Estimate Adequate Hypochromasia 1+ Anisocytosis 1+ Schistocytes None seen Sodium 133 L Potassium 3.7 Chloride 94 L Carbon Dioxide 33 H Anion Gap 6 BUN 13 Creatinine 0.34 L Estim Creat Clear Calc 112 Estimated GFR > 60 Glucose 103 Calcium 8.0 L Troponin I 0.063 H* 0.055 H* NT-Pro-B Natriuret Pep Urine Color Urine Appearance Urine pH Ur Specific [place] Urine Protein Urine Glucose (UA) Urine Ketones Ur Blood (Man) Urine Nitrate Urine Bilirubin Urine Urobilinogen Leukocyte Esterase Rfl Urine RBC Urine WBC Ur Squamous Epith Cells Urine Bacteria Urine Casts Nasal MRSA (PCR) Quality VTE Prophylaxis VTE prophylaxis: mechanical ordered
[2024-11-15 18:14] LABS: MRSA (PCR) NOT DETECTED (NOT DETECTE)
[2024-11-15] MEDS: PRAMIPEXOLE 0.5 MG TABLET PO (21:30)
[2024-11-15] MEDS: LIDOCAINE 5% PATCH 2 PATCH TOPICAL (21:31)
[2024-11-16] VITALS (14 sets, daily range): BP systolic 96–129; BP diastolic 40–66; PULSE 95–116; RESP 20–32; TEMP 36.4–37.9; O2SAT 93–100
[2024-11-16] MEDS: PIPERACILLIN/TAZ 4.5G/NS 100ML 4.5 GM/100 ML BAG IVPB ×4 (00:15→18:05)
[2024-11-16 04:31] LABS: Basophils Absolute Auto 0.1 K/mm3 (0.0-0.1); Basophils Percent Auto 0.4 % (0.2-1.2); Hematocrit 29.7 % (37.0-47.0); Hemoglobin 9.1 g/dL (12.0-15.0); Immature Granulocyte Absolute 0.13 K/mm3 (0.00-0.031); Immature Granulocyte Percent A 1.1 % (0-0.5); Lymphocytes Absolute Auto 2.03 K/mm3 (0.9-3.2); Lymphocytes Percent Auto 16.6 % (18.3-44.2); Mean Corpuscular HGB Conc 30.6 g/dl (32-36); Mean Corpuscular Hemoglobin 28.9 pg (26-34); Mean Corpuscular Volume 94.3 fl (80-100); Monocytes Absolute Auto 0.6 K/mm3 (0.1-0.6); Monocytes Percent Auto 5.2 % (2.6-8.5); Neutrophils Absolute Auto 9.4 K/mm3 (1.3-6.7); Neutrophils Percent Auto 76.7 % (45.5-73.1); Platelet Count Result 358 k/mm3 (150-375); Red Blood Count 3.15 M/mm3 (4.2-5.4); Red Cell Distribution Width 19.3 % (11.5-14.5); White Blood Count 12.2 K/mm3 (4.5-10.0)
[2024-11-16 04:41] LABS: Lactic Acid Reflex 1.1 mmol/L (0.7-2.0)
[2024-11-16 04:51] LABS: Alanine Aminotransferase 18 U/L (6-35); Albumin Level 2.7 g/dL (3.5-5.1); Alkaline Phosphatase 109 U/L (38-126); Anion Gap 6 mmol/L (4-12); Aspartate Amino Transferase 32 U/L (14-36); Bilirubin,Total 0.5 mg/dL (0.2-1.3); Blood Urea Nitrogen 10 mg/dL (7-17); Calcium 7.6 mg/dL (8.4-10.2); Carbon Dioxide 39 mmol/L (22-30); Chloride 88 mmol/L (98-107); Estimated CRCL calculation 92 ml/min; Estimated Glomerular Filt Rate > 60; Glucose 116 mg/dL (65-110); Magnesium 1.6 mg/dL (1.6-2.3); Potassium 2.8 mmol/L (3.4-5.0); Sodium 133 mmol/L (137-145)
[2024-11-16] MEDS: POTASSIUM CHLORIDE 20 MEQ PACKET (FOR LIQUID) 40 MEQ PO ×2 (07:55→11:04)
[2024-11-16] MEDS: methocarbamoL 750 MG TABLET PO ×3 (08:47→16:19)
[2024-11-16] MEDS: AMIODARONE HCL 200 MG TABLET PO (08:47)
[2024-11-16] MEDS: MIDODRINE HCL 10 MG TABLET PO (08:48)
[2024-11-16] MEDS: PREGABALIN (*CRX) 75 MG CAPSULE 150 MG PO ×2 (08:48→16:19)
[2024-11-16] MEDS: PRAMIPEXOLE 0.5 MG TABLET PO ×3 (08:48→16:19)
[2024-11-16] MEDS: FUROSEMIDE INJ 40 MG/4 ML VIAL IV PUSH ×2 (08:49→16:25)
[2024-11-16] MEDS: SODIUM CHLORIDE 1 GM TABLET PO ×2 (08:50→16:25)
--- NOTE | 2024-11-16 09:47 | P.PNIM_ITS ---
Progress Note: A&P Assessment and Plan (1) Hypotension: Code(s): I95.9 - Hypotension, unspecified Status: Acute Assessment and Plan: resolved likely from pneumonia monitor (2) Pneumonia: Code(s): J18.9 - Pneumonia, unspecified organism Status: Acute Assessment and Plan: CT chest reviewed MRSA negative Blood culture pending Stopped Vanc Continue Cefepime (3) Pleural effusion: Code(s): J90 - Pleural effusion, not elsewhere classified Status: Acute Assessment and Plan: Right pleural effusion greater than left Order thoracentesis Warfarin being held ECHO shows left ventricular ejection fraction 60-65% Us liver shows Hepatomegaly. Small echogenic foci in the gallbladder which may be stones or polyps. Follow-up advised. Otherwise, normal limited abdominal ultrasound. 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 Patient had multiple surgeries in spine and the latest one on cervical spine on September at [facility]. Patient went to [facility] re[facility] and on the way to [facility] had episode of low blood pressure and was taken to [facility] ED. patient was given fluids in ED. currently patient is volume overloaded. Patient initially started on midodrine 10 mg t.i.d. and and reduce to midodrine 5 mg p.o. t.i.d.. Patient also had C diff during her previous hospitalization. Patient had a left hip replacement as well. Patient lives in [place] and reports no neurosurgeon in [place], [place] will do her cervical spine surgery. Will do albumin infusion followed by Jorge. Review of Systems Review of Systems: 12 systems were reviewed and are negativ e except for as per HPI. Exam Narrative: General: Chronically ill-appearing no acute respiratory distress HEENT: normocephalic, atraumatic. Mucous membranes moist. EOMI, PERRLA, bilateral sclera anicteric, no conjunctival injection. Neck supple without JVD, lymphadenopathy, or bruit. Respiratory: clear to ascultation bilaterally. No rales/rhonic/wheezes. Cardiovascular: Regular rate and rhythm, normal S1-S2 upon ascultation. No murmurs, rubs, or clicks. PMI is nondisplaced, capillary refill less than 3 second. Abdomen: Soft, round, no pulsatile masses, nondistended and nontender. No rebound, no guarding. No CVA tenderness, no hepatosplenomegaly. Bowel sounds present to all four quadrants. No high pitch or tinkling sounds, resonant to percussion. Extremities: bilateral LE edema grade 5 Neuro: Alert and orientated x 4. PERRLA. Cranial nerves 2-12 intact without focal deficit. Skin: Warm, dry, and intact, without rash, erythema, or lesion. Psych: pleasant, cooperative, normal speech, normal affect, no hallucinations, no dysarthia Objective Data Vital Signs Vital Signs: Vital Signs - 24 hr 11/15/24 09:57 11/15/24 10:00 11/15/24 12:00 Temperature 98.1 F Pulse Rate 105 H 95 100 Respiratory Rate 18 Blood Pressure 124/66 Pulse Oximetry 100 Oxygen Delivery Oxygen Flow Rate Fraction of Inspired Oxygen 11/15/24 12:00 11/15/24 12:00 11/15/24 14:00 Temperature Pulse Rate 97 106 H Respiratory Rate Blood Pressure Pulse Oximetry 98 Oxygen Delivery Nasal Cannula Oxygen Flow Rate 3 Fraction of Inspired Oxygen 11/15/24 16:00 11/15/24 16:00 11/15/24 16:00 Temperature 98.4 F Pulse Rate 95 95 Respiratory Rate 20 Blood Pressure 130/63 Pulse Oximetry 95 98 Oxygen Delivery Nasal Cannula Oxygen Flow Rate 3 Fraction of Inspired Oxygen 11/15/24 18:00 11/15/24 19:56 11/15/24 20:00 Temperature 98.3 F Pulse Rate 81 101 H 99 Respiratory Rate 20 20 Blood Pressure 123/52 L Pulse Oximetry 100 100 Oxygen Delivery Nasal Cannula Oxygen Flow Rate 2 Fraction of Inspired Oxygen 11/15/24 20:00 11/15/24 23:50 11/15/24 23:50 Temperature 98.3 F Pulse Rate 99 102 H 99 Respiratory Rate 20 Blood Pressure 126/58 L Pulse Oximetry 100 Oxygen Delivery Oxygen Flow Rate Fraction of Inspired Oxygen 11/15/24 23:52 11/16/24 04:00 11/16/24 04:00 Temperature 97.5 F L Pulse Rate 99 108 H 104 H Respiratory Rate 20 20 Blood Pressure 123/53 L Pulse Oximetry 100 98 Oxygen Delivery Nasal Cannula Oxygen Flow Rate 2 Fraction of Inspired Oxygen 32 11/16/24 04:00 11/16/24 06:23 11/16/24 08:00 Temperature 98.1 F Pulse Rate 104 H 112 H 105 H Respiratory Rate 20 24 H Blood Pressure 129/66 Pulse Oximetry 98 100 Oxygen Delivery Nasal Cannula Oxygen Flow Rate 2 Fraction of Inspired Oxygen 11/16/24 08:47 11/16/24 09:22 Temperature Pulse Rate 109 H Respiratory Rate Blood Pressure Pulse Oximetry 95 Oxygen Delivery Nasal Cannula Oxygen Flow Rate 2 Fraction of Inspired Oxygen Intake/Output Intake/Output: Intake & Output 11/13/24 11/14/24 11/15/24 11/16/24 23:59 23:59 23:59 23:59 Intake Total 309 0960 570 Output Total 2264 300 Balance 650 -6673 171 Meds/Results Medications: Active Medications Generic Name Dose Route Start Last Admin Trade Name Freq PRN Reason Stop Dose Admin Acetaminophen 650 mg 11/14/24 14:34 Acetaminophen 325 Mg Tablet PO Q4H PRN Mild Pain (1-3) or Fever Amiodarone HCl 200 mg 11/15/24 09:00 11/16/24 08:47 Amiodarone Hcl 200 Mg Tablet PO 200 mg DAILY JOSEPH Administration Furosemide 40 mg 11/15/24 10:00 11/16/24 08:49 Furosemide Inj 40 Mg/4 Ml Vial IV PUSH 40 mg BID JOSEPH Administration Piperacillin Sod/Tazobactam Sod 4.5 gm in 100 mls @ 200 mls/hr 11/15/24 00:00 11/16/24 09:00 Zosyn 4.5 Gm/Ns 100 Ml IVPB Infused Q6HR JOSEPH Infusion Lidocaine 2 patch 11/15/24 21:00 11/15/24 21:31 Lidocaine 5% Patch TOPICAL 2 patch HS JOSEPH Administration Methocarbamol 750 mg 11/15/24 09:00 11/16/24 08:47 Methocarbamol 750 Mg Tablet PO 750 mg TID JOSEPH Administration Midodrine 10 mg 11/14/24 17:00 11/16/24 08:48 Midodrine Hcl 10 Mg Tablet PO 10 mg TID JOSEPH Administration Ondansetron HCl 4 mg 11/14/24 16:32 Ondansetron Inj 4 Mg/2 Ml Vial IV PUSH Q4H PRN Nausea Oxycodone HCl 5 mg 11/14/24 18:25 11/14/24 20:23 Oxycodone Hcl (*Crx) 5 Mg Tab Ir PO 5 mg Q4H PRN Administration pain--MODERATE-SEVERE 4-10 Perflutren Lipid Microsphere 0 ml 11/15/24 09:32 Perflutren Lipid Microspheres 1.5 Ml Vial Diluted To 10 Ml Total Volume IV PUSH 11/18/24 09:32 ONCE PRN adequate visualization Protocol Pramipexole Dihydrochloride 0.5 mg 11/15/24 20:00 11/16/24 08:48 Pramipexole 0.5 Mg Tablet PO 0.5 mg TID JOSEPH Administration Pregabalin 150 mg 11/15/24 09:00 11/16/24 08:48 Pregabalin (*Crx) 75 Mg Capsule PO 150 mg BID JOSEPH Administration Sodium Chloride 1 gm 11/15/24 09:00 11/16/24 08:50 Sodium Chloride 1 Gm Tablet PO 1 gm DAILY@0900,1700 JOSEPH Administration Radiology Results: ITS Impressions Chest X-Ray 11/14/24 13:37 IMPRESSION: Bilateral pneumonia with highly suggestive underlying pulmonary edema. Right pleural effusion. Chest/Abdomen/Pelvis CT 11/14/24 15:25 IMPRESSION: Mural thickening and edema within the distal sigmoid colon and rectum, with infiltration of the presacral fat. Large bilateral pleural effusions, right greater than left. Left basilar consolidation. Hepatomegaly. Abdomen Ultrasound 11/15/24 15:39 IMPRESSION: Hepatomegaly. Small echogenic foci in the gallbladder which may be stones or polyps. Follow-up advised. Otherwise, normal limited abdominal ultrasound. Labs Labs: Laboratory Results - last 24 hr 11/15/24 11/16/24 15:25 04:07 WBC 12.2 H RBC 3.15 L Hgb 9.1 L Hct 29.7 L MCV 94.3 MCH 28.9 MCHC 30.6 L RDW 19.3 H Plt Count 358 MPV 9.0 Immature Gran % (Auto) 1.1 H Neut % (Auto) 76.7 H Lymph % (Auto) 16.6 L [place] % (Auto) 5.2 Eos % (Auto) 0.0 Baso % (Auto) 0.4 Lymph # (Auto) 2.03 [place] # (Auto) 0.6 Eos # (Auto) 0.0 Baso # (Auto) 0.1 Abs Immat Gran (auto) 0.13 H Absolute Neuts (auto) 9.4 H Absolute Nucleated RBC 0.000 Nucleated RBC % 0.0 Sodium 133 L Potassium 2.8 L* Chloride 88 L Carbon Dioxide 39 H Anion Gap 6 BUN 10 Creatinine 0.37 L Estim Creat Clear Calc 92 Estimated GFR > 60 Glucose 116 H Lactic Acid 1.1 Calcium 7.6 L Magnesium 1.6 Total Bilirubin 0.5 AST 32 ALT 18 Alkaline Phosphatase 109 Total Protein 6.0 L Albumin 2.7 L Nasal MRSA (PCR) Not detected Quality VTE Prophylaxis VTE prophylaxis: mechanical ordered Hospitalist MIPS Advance Care Plan I have confirmed that the patient's Advanced Care Plan is present, code status is documented, or surrogate decision maker is listed in patient medical record.: Yes Medication Reconciliation I have utilized all available resources to obtain, update and review the patients current medications (includes all prescriptions, OTC, herbals, cannabis, and nutritional supplements).: Yes
[2024-11-16] MEDS: MIDODRINE HCL 2.5 MG TABLET 5 MG PO ×2 (12:27→16:19)
--- NOTE | 2024-11-16 14:13 | P.PNCA_ITS ---
Progress Note: A&P Assessment and Plan (1) Diastolic heart failure: Code(s): I50.30 - Unspecified diastolic (congestive) heart failure Status: Acute Plan 79-year-old woman with chronic diastolic heart and paroxysmal atrial fibr illation (on warfarin) who was brought in due to hypotension Acute on chronic diastolic heart failure -continue Lasix 40 mg IV push b.i.d. -her shortness of breath and anasarca most likely multifactorial with contributions from diastolic heart failure, pneumonia, and hypo albumin state Hypotension: Her blood pressures have improved. She was started on Midodrine 10mg TID, will try to wean off. Decreased to 5mg TID. Paroxysmal atrial fibrillation -she is on warfarin at home -would recommend discussion with her outpatient surgeon to determine when she is safe for full anticoagulation -in the meantime continue amiodarone 200 mg p.o. daily for which she was discharged mostly for rate control Troponin elevation -the trend most likely is contributed due to volume overload with subsequent narda cardial stress Subjective Date/time seen: 11/16/24 14:13 Interval history: Reason for visit: Acute/chronic diastolic heart failure HPI: 79-year-old woman with chronic diastolic heart and paroxysmal atrial fibrillation (on warfarin) who was brought in due to hypotension. She does complain that in the last few days she has been having more shortness of breath. She has also been having some productive cough. She is still recovering from her cervical spine fusion surgery for which she currently cannot move her head. Otherwise she denies any chest discomfort. Per the patient she was previously hospitalized for 40 lb weight gain and water weight for which they have diuresed her. She is previously at [facility]. She feels that her shortness of breath has been mildly worse compared to when she was discharged from [facility]. Denies any syncopal events. Date of service 11/16: Lower extremity edema still present, but improving. She reports tremors, which has been occurring since her surgery. Review of Systems Cardiovascular: Cardiovascular: Reports as per HPI Exam Const: Other: Elderly frail appearing female Resp: Effort & Inspection: normal respiratory effort Cardio: Rhythm: abnormal rhythm irregularly irregular Other: + Bilateral lower extremity edema Neuro: Speech: normal speech Psych: Mental Status: mental status grossly normal Affect: normal affect Objective Data Vital Signs Vital Signs: Vital Signs - 24 hr 11/15/24 16:00 11/15/24 16:00 11/15/24 16:00 Temperature 36.9 C Pulse Rate 95 95 Respiratory Rate 20 Blood Pressure 130/63 Pulse Oximetry 95 98 Oxygen Delivery Nasal Cannula Oxygen Flow Rate 3 Fraction of Inspired Oxygen 11/15/24 18:00 11/15/24 19:56 11/15/24 20:00 Temperature 36.8 C Pulse Rate 81 101 H 99 Respiratory Rate 20 20 Blood Pressure 123/52 L Pulse Oximetry 100 100 Oxygen Delivery Nasal Cannula Oxygen Flow Rate 2 Fraction of Inspired Oxygen 11/15/24 20:00 11/15/24 23:50 11/15/24 23:50 Temperature 36.8 C Pulse Rate 99 102 H 99 Respiratory Rate 20 Blood Pressure 126/58 L Pulse Oximetry 100 Oxygen Delivery Oxygen Flow Rate Fraction of Inspired Oxygen 11/15/24 23:52 11/16/24 04:00 11/16/24 04:00 Temperature 36.4 C L Pulse Rate 99 108 H 104 H Respiratory Rate 20 20 Blood Pressure 123/53 L Pulse Oximetry 100 98 Oxygen Delivery Nasal Cannula Oxygen Flow Rate 2 Fraction of Inspired Oxygen 32 11/16/24 04:00 11/16/24 06:23 11/16/24 08:00 Temperature 36.7 C Pulse Rate 104 H 112 H 105 H Respiratory Rate 20 24 H Blood Pressure 129/66 Pulse Oximetry 98 100 Oxygen Delivery Nasal Cannula Oxygen Flow Rate 2 Fraction of Inspired Oxygen 11/16/24 08:00 11/16/24 08:00 11/16/24 08:47 Temperature Pulse Rate 116 H 109 H Respiratory Rate Blood Pressure Pulse Oximetry 99 Oxygen Delivery Nasal Cannula Oxygen Flow Rate 2.5 Fraction of Inspired Oxygen 11/16/24 09:00 11/16/24 09:22 11/16/24 10:00 Temperature Pulse Rate 108 H Respiratory Rate Blood Pressure Pulse Oximetry 98 95 Oxygen Delivery Nasal Cannula Nasal Cannula Oxygen Flow Rate 2 2 Fraction of Inspired Oxygen 11/16/24 11:51 11/16/24 12:00 11/16/24 12:00 Temperature 36.6 C Pulse Rate 105 H 104 H Respiratory Rate 32 H Blood Pressure 115/41 L Pulse Oximetry 98 93 Oxygen Delivery Nasal Cannula Oxygen Flow Rate 2 Fraction of Inspired Oxygen 11/16/24 12:18 Temperature Pulse Rate Respiratory Rate Blood Pressure Pulse Oximetry Oxygen Delivery Nasal Cannula Oxygen Flow Rate 2 Fraction of Inspired Oxygen Intake/Output Intake/Output: Intake & Output 11/13/24 11/14/24 11/15/24 11/16/24 23:59 23:59 23:59 23:59 Intake Total 650 2990 690 Output Total 6255 5700 Balance 997 -5943 -3534 Meds/Results Medications: Active Medications Generic Name Dose Route Start Last Admin Trade Name Freq PRN Reason Stop Dose Admin Acetaminophen 650 mg 11/14/24 14:34 Acetaminophen 325 Mg Tablet PO Q4H PRN Mild Pain (1-3) or Fever Amiodarone HCl 200 mg 11/15/24 09:00 11/16/24 08:47 Amiodarone Hcl 200 Mg Tablet PO 200 mg DAILY JOSEPH Administration Furosemide 40 mg 11/15/24 10:00 11/16/24 08:49 Furosemide Inj 40 Mg/4 Ml Vial IV PUSH 40 mg BID JOSEPH Administration Piperacillin Sod/Tazobactam Sod 4.5 gm in 100 mls @ 200 mls/hr 11/15/24 00:00 11/16/24 11:51 Zosyn 4.5 Gm/Ns 100 Ml IVPB 100 mls/hr Q6HR JOSEPH Administration Lidocaine 2 patch 11/15/24 21:00 11/15/24 21:31 Lidocaine 5% Patch TOPICAL 2 patch HS JOSEPH Administration Methocarbamol 750 mg 11/15/24 09:00 11/16/24 12:28 Methocarbamol 750 Mg Tablet PO 750 mg TID JOSEPH Administration Midodrine 5 mg 11/16/24 13:00 11/16/24 12:27 Midodrine Hcl 2.5 Mg Tablet PO 5 mg TID JOSEPH Administration Ondansetron HCl 4 mg 11/14/24 16:32 Ondansetron Inj 4 Mg/2 Ml Vial IV PUSH Q4H PRN Nausea Oxycodone HCl 5 mg 11/14/24 18:25 11/14/24 20:23 Oxycodone Hcl (*Crx) 5 Mg Tab Ir PO 5 mg Q4H PRN Administration pain--MODERATE-SEVERE 4-10 Perflutren Lipid Microsphere 0 ml 11/15/24 09:32 Perflutren Lipid Microspheres 1.5 Ml Vial Diluted To 10 Ml Total Volume IV PUSH 11/18/24 09:32 ONCE PRN adequate visualization Protocol Pramipexole Dihydrochloride 0.5 mg 11/15/24 20:00 11/16/24 12:28 Pramipexole 0.5 Mg Tablet PO 0.5 mg TID JOSEPH Administration Pregabalin 150 mg 11/15/24 09:00 11/16/24 08:48 Pregabalin (*Crx) 75 Mg Capsule PO 150 mg BID JOSEPH Administration Sodium Chloride 1 gm 11/15/24 09:00 11/16/24 08:50 Sodium Chloride 1 Gm Tablet PO 1 gm DAILY@0900,1700 JOSEPH Administration Radiology Results: ITS Impressions Chest X-Ray 11/14/24 13:37 IMPRESSION: Bilateral pneumonia with highly suggestive underlying pulmonary edema. Right pleural effusion. Chest/Abdomen/Pelvis CT 11/14/24 15:25 IMPRESSION: Mural thickening and edema within the distal sigmoid colon and rectum, with infiltration of the presacral fat. Large bilateral pleural effusions, right greater than left. Left basilar consolidation. Hepatomegaly. Abdomen Ultrasound 11/15/24 15:39 IMPRESSION: Hepatomegaly. Small echogenic foci in the gallbladder which may be stones or polyps. Follow-up advised. Otherwise, normal limited abdominal ultrasound. Labs Labs: Laboratory Results - last 24 hr 11/15/24 11/16/24 15:25 04:07 WBC 12.2 H RBC 3.15 L Hgb 9.1 L Hct 29.7 L MCV 94.3 MCH 28.9 MCHC 30.6 L RDW 19.3 H Plt Count 358 MPV 9.0 Immature Gran % (Auto) 1.1 H Neut % (Auto) 76.7 H Lymph % (Auto) 16.6 L [place] % (Auto) 5.2 Eos % (Auto) 0.0 Baso % (Auto) 0.4 Lymph # (Auto) 2.03 [place] # (Auto) 0.6 Eos # (Auto) 0.0 Baso # (Auto) 0.1 Abs Immat Gran (auto) 0.13 H Absolute Neuts (auto) 9.4 H Absolute Nucleated RBC 0.000 Nucleated RBC % 0.0 Sodium 133 L Potassium 2.8 L* Chloride 88 L Carbon Dioxide 39 H Anion Gap 6 BUN 10 Creatinine 0.37 L Estim Creat Clear Calc 92 Estimated GFR > 60 Glucose 116 H Lactic Acid 1.1 Calcium 7.6 L Magnesium 1.6 Total Bilirubin 0.5 AST 32 ALT 18 Alkaline Phosphatase 109 Total Protein 6.0 L Albumin 2.7 L Nasal MRSA (PCR) Not detected
[2024-11-16 15:33] LABS: Blood Urea Nitrogen 14 mg/dL (7-17); Carbon Dioxide > 40 mmol/L (22-30); Chloride 87 mmol/L (98-107); Estimated CRCL calculation 76 ml/min; Estimated Glomerular Filt Rate > 60; Glucose 139 mg/dL (65-110); Potassium 3.8 mmol/L (3.4-5.0); Sodium 132 mmol/L (137-145)
--- NOTE | 2024-11-16 15:36 | PC.NURSE ---
Addendum entered by Jeimy Means RN 11/16/24 15:40: Also received order to start albumin and give nightime lasix early. Original Note: Notified Dr MENSAH that the patient was supposed to have her sutures removed today at her follow up appointment. Also notified that the patient was able to get up to the recliner with Seri-steady and Maxi-move. When placed back in bed it was noted that she had a skin tear to her left elbow covered with nonadherent dressing and mepilex. Will take pictures of sutures and skin tear and place on chart.
[2024-11-16] MEDS: ALBUMIN HUMAN 25% 25 GM/100 ML 100 ML IVPB (16:25)
[2024-11-16 16:56] LABS: Lactate Dehydrogenase 277 U/L (120-246)
[2024-11-16] MEDS: LIDOCAINE 5% PATCH 2 PATCH TOPICAL (20:38)
[2024-11-17] VITALS (11 sets, daily range): BP systolic 96–122; BP diastolic 48–61; PULSE 72–110; RESP 18–22; TEMP 36.4–37.3; O2SAT 96–100
[2024-11-17] MEDS: oxyCODONE HCL (*CRX) 5 MG TAB IR PO (02:20)
[2024-11-17] MEDS: PIPERACILLIN/TAZ 4.5G/NS 100ML 4.5 GM/100 ML BAG IVPB ×3 (06:25→12:51)
[2024-11-17] MEDS: ONDANSETRON INJ 4 MG/2 ML VIAL IV PUSH (07:21)
--- NOTE | 2024-11-17 08:07 | P.PNIM_ITS ---
Progress Note: A&P Assessment and Plan (1) Hypotension: Code(s): I95.9 - Hypotension, unspecified Status: Acute Assessment and Plan: resolved likely from pneumonia monitor (2) Pneumonia: Code(s): J18.9 - Pneumonia, unspecified organism Status: Acute Assessment and Plan: CT chest reviewed MRSA negative Blood culture pending Stopped Vanc Continue Cefepime (3) Pleural effusion: Code(s): J90 - Pleural effusion, not elsewhere classified Status: Acute Assessment and Plan: CXR:Small bilateral pleural effusions, right greater than left with mild pulmonary vascular congestion. A focused bilateral chest ultrasound may be performed for a sufficient evaluation of the adequacy of the pleural effusions for thoracentesis. Order Chest US Order thoracentesis Warfarin being held ECHO shows left ventricular ejection fraction 60-65% Us liver shows Hepatomegaly. Small echogenic foci in the gallbladder which may be stones or polyps. Follow-up advised. Otherwise, normal limited abdominal ultrasound. continue lasix in the meantime (4) Respiratory failure with hypoxia: Code(s): J96.91 - Respiratory failure, unspecified with hypoxia Status: Acute Assessment and Plan: Likely CHF and pneumonia Patient has positive JVD and bilateral edema 5++ CT chest showed large bilateral effusions and left basilar consolidation On Lasix 40mg PO QD Cardio decreased Lasix from 40 mg PO BID to QD S/P Zosyn Augmentin until 11/19 titrate oxygen Monitor (5) UTI (urinary tract infection): Code(s): N39.0 - Urinary tract infection, site not specified Status: Acute Assessment and Plan: Augmentin until 11/19 Culture and sensitivity pending (6) Cervicothoracic kyphosis: Code(s): 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 Patient reports she was not taking Warfarin when she was in [place]. Possibly started at [place] when she was there for cervical spine fusion surgery Sep. Holding warfarin for thoracentesis Plan DVT prophylaxis on SCDs, warfarin on hold for thoracentesis Subjective Date/time seen: 11/17/24 08:07 Interval history: Interval Hx:Patient has a complex history in regards to spinal cord surgeries Patient had a left hip replacement as well. Patient had multiple surgeries in spine and the latest one was performed on September at [place] in cervical spine. Patient completed rehab and on the way to longterm had episode of low blood pressure and was taken to [facility] ED. In ED patient was given fluids. Currently patient is volume overloaded. Patient initially started on midodrine 10 mg t.i.d. and and later reduced to midodrine 5 mg p.o. t.i.d.. Of note Patient also had C diff during her previous hospitalization. Patient lives in [place] and reports no neurosurgeon in [place], [place] willing to do her cervical spine surgery. On 11/17 and 11/18 given albumin infusion followed by Lasix. 11/17: The patient is unable to verify from when or for what she is taking Warfarin and Amiodarone.Performed CXR today and shows : Small bilateral pleural effusions, right greater than left with mild pulmonary vascular congestion.A focused bilateral chest ultrasound may be performed for a sufficient evaluation of the adequacy of the pleural effusions for thoracentesis.Ordered Chest US. Review of Systems Review of Systems: 12 systems were reviewed and are negativ e except for as per HPI. Exam Narrative: General: Chronically ill-appearing no acute respiratory distress HEENT: normocephalic, atraumatic. Mucous membranes moist. EOMI, PERRLA, bilateral sclera anicteric, no conjunctival injection. Neck supple without JVD, lymphadenopathy, or bruit. Respiratory: clear to ascultation bilaterally. No rales/rhonic/wheezes. Cardiovascular: Regular rate and rhythm, normal S1-S2 upon ascultation. No murmurs, rubs, or clicks. PMI is nondisplaced, capillary refill less than 3 second. Abdomen: Soft, round, no pulsatile masses, nondistended and nontender. No rebound, no guarding. No CVA tenderness, no hepatosplenomegaly. Bowel sounds present to all four quadrants. No high pitch or tinkling sounds, resonant to percussion. Extremities: bilateral LE edema grade 5 Neuro: Alert and orientated x 4. PERRLA. Cranial nerves 2-12 intact without focal deficit. Skin: Warm, dry, and intact, without rash, erythema, or lesion. Psych: pleasant, cooperative, normal speech, normal affect, no hallucinations, no dysarthia Objective Data Vital Signs Vital Signs: Vital Signs - 24 hr 11/16/24 08:47 11/16/24 09:00 11/16/24 09:22 Temperature Pulse Rate 109 H Respiratory Rate Blood Pressure Pulse Oximetry 98 95 Oxygen Delivery Nasal Cannula Nasal Cannula Oxygen Flow Rate 2 2 11/16/24 10:00 11/16/24 11:51 11/16/24 12:00 Temperature 97.8 F Pulse Rate 108 H 105 H Respiratory Rate 32 H Blood Pressure 115/41 L Pulse Oximetry 98 93 Oxygen Delivery Nasal Cannula Oxygen Flow Rate 2 11/16/24 12:00 11/16/24 12:18 11/16/24 14:00 Temperature Pulse Rate 104 H 95 Respiratory Rate Blood Pressure Pulse Oximetry Oxygen Delivery Nasal Cannula Oxygen Flow Rate 2 11/16/24 14:45 11/16/24 16:00 11/16/24 16:00 Temperature 100.3 F H Pulse Rate 95 Respiratory Rate 20 Blood Pressure 98/62 L Pulse Oximetry 96 99 Oxygen Delivery Nasal Cannula Nasal Cannula Oxygen Flow Rate 1.5 1.5 11/16/24 16:00 11/16/24 19:29 11/16/24 20:00 Temperature 98.4 F Pulse Rate 103 H 95 104 H Respiratory Rate 20 20 Blood Pressure 96/40 L Pulse Oximetry 96 96 Oxygen Delivery Nasal Cannula Oxygen Flow Rate 2 11/16/24 20:00 11/16/24 22:00 11/17/24 00:00 Temperature Pulse Rate 104 H 107 H 91 Respiratory Rate 20 Blood Pressure Pulse Oximetry 96 Oxygen Delivery Nasal Cannula Oxygen Flow Rate 2 11/17/24 00:00 11/17/24 00:00 11/17/24 01:37 Temperature 98.7 F Pulse Rate 91 105 H Respiratory Rate 20 Blood Pressure 116/57 L Pulse Oximetry 100 98 Oxygen Delivery Nasal Cannula Oxygen Flow Rate 2 11/17/24 03:55 11/17/24 04:00 11/17/24 04:00 Temperature 97.6 F Pulse Rate 101 H 101 H 102 H Respiratory Rate 20 20 Blood Pressure 96/51 L Pulse Oximetry 98 96 Oxygen Delivery Nasal Cannula Oxygen Flow Rate 2 Intake/Output Intake/Output: Intake & Output 11/14/24 11/15/24 11/16/24 11/17/24 23:59 23:59 23:59 23:59 Intake Total 650 2990 1130 350 Output Total 6228 5980 850 Balance 827 -4725 -1720 -500 Meds/Results Medications: Active Medications Generic Name Dose Route Start Last Admin Trade Name Freq PRN Reason Stop Dose Admin Acetaminophen 650 mg 11/14/24 14:34 Acetaminophen 325 Mg Tablet PO Q4H PRN Mild Pain (1-3) or Fever Amiodarone HCl 200 mg 11/15/24 09:00 11/16/24 08:47 Amiodarone Hcl 200 Mg Tablet PO 200 mg DAILY JOSEPH Administration Furosemide 40 mg 11/15/24 10:00 11/16/24 16:25 Furosemide Inj 40 Mg/4 Ml Vial IV PUSH 40 mg BID JOSEPH Administration Piperacillin Sod/Tazobactam Sod 4.5 gm in 100 mls @ 200 mls/hr 11/15/24 00:00 11/17/24 06:25 Zosyn 4.5 Gm/Ns 100 Ml IVPB 100 mls/hr Q6HR JOSEPH Administration Lidocaine 2 patch 11/15/24 21:00 11/16/24 20:38 Lidocaine 5% Patch TOPICAL 2 patch HS JOSEPH Administration Methocarbamol 750 mg 11/15/24 09:00 11/16/24 16:19 Methocarbamol 750 Mg Tablet PO 750 mg TID JOSEPH Administration Midodrine 5 mg 11/16/24 13:00 11/16/24 16:19 Midodrine Hcl 2.5 Mg Tablet PO 5 mg TID JOSEPH Administration Ondansetron HCl 4 mg 11/14/24 16:32 11/17/24 07:21 Ondansetron Inj 4 Mg/2 Ml Vial IV PUSH 4 mg Q4H PRN Administration Nausea Oxycodone HCl 5 mg 11/14/24 18:25 11/17/24 02:20 Oxycodone Hcl (*Crx) 5 Mg Tab Ir PO 5 mg Q4H PRN Administration pain--MODERATE-SEVERE 4-10 Perflutren Lipid Microsphere 0 ml 11/15/24 09:32 Perflutren Lipid Microspheres 1.5 Ml Vial Diluted To 10 Ml Total Volume IV PUSH 11/18/24 09:32 ONCE PRN adequate visualization Protocol Pramipexole Dihydrochloride 0.5 mg 11/15/24 20:00 11/16/24 16:19 Pramipexole 0.5 Mg Tablet PO 0.5 mg TID JOSEPH Administration Pregabalin 150 mg 11/15/24 09:00 11/16/24 16:19 Pregabalin (*Crx) 75 Mg Capsule PO 150 mg BID JOSEPH Administration Sodium Chloride 1 gm 11/15/24 09:00 11/16/24 16:25 Sodium Chloride 1 Gm Tablet PO 1 gm DAILY@0900,1700 OJSEPH Administration Radiology Results: ITS Impressions Chest X-Ray 11/14/24 13:37 IMPRESSION: Bilateral pneumonia with highly suggestive underlying pulmonary edema. Right pleural effusion. Chest/Abdomen/Pelvis CT 11/14/24 15:25 IMPRESSION: Mural thickening and edema within the distal sigmoid colon and rectum, with infiltration of the presacral fat. Large bilateral pleural effusions, right greater than left. Left basilar consolidation. Hepatomegaly. Abdomen Ultrasound 11/15/24 15:39 IMPRESSION: Hepatomegaly. Small echogenic foci in the gallbladder which may be stones or polyps. Follow-up advised. Otherwise, normal limited abdominal ultrasound. Labs Labs: Laboratory Results - last 24 hr 11/16/24 15:12 Sodium 132 L Potassium 3.8 Chloride 87 L Carbon Dioxide > 40 H Anion Gap BUN 14 Creatinine 0.46 L Estim Creat Clear Calc 76 Estimated GFR > 60 Glucose 139 H Calcium 8.0 L Lactate Dehydrogenase 277 H Total Protein 6.0 L Quality VTE Prophylaxis VTE prophylaxis: mechanical ordered Hospitalist MIPS Advance Care Plan I have confirmed that the patient's Advanced Care Plan is present, code status is documented, or surrogate decision maker is listed in patient medical record.: Yes Medication Reconciliation I have utilized all available resources to obtain, update and review the patients current medications (includes all prescriptions, OTC, herbals, cannabis, and nutritional supplements).: Yes
[2024-11-17 08:52] LABS: Hematocrit 31.4 % (37.0-47.0); Hemoglobin 9.3 g/dL (12.0-15.0); Mean Corpuscular HGB Conc 29.6 g/dl (32-36); Mean Corpuscular Hemoglobin 28.4 pg (26-34); Mean Corpuscular Volume 95.7 fl (80-100); Mean Platelet Volume 8.9 fl (7.4-10.4); Platelet Count Result 330 k/mm3 (150-375); Red Blood Count 3.28 M/mm3 (4.2-5.4); Red Cell Distribution Width 19.3 % (11.5-14.5); White Blood Count 11.3 K/mm3 (4.5-10.0)
[2024-11-17 09:17] LABS: INR 1.2; Prothrombin Time 15.6 Seconds (11.1-14.7)
[2024-11-17 09:19] LABS: Partial Thromboplastin Time 41.1 Seconds (22.3-36.8)
[2024-11-17 09:22] LABS: Alanine Aminotransferase 20 U/L (6-35); Albumin Level 3.2 g/dL (3.5-5.1); Alkaline Phosphatase 101 U/L (38-126); Aspartate Amino Transferase 32 U/L (14-36); Bilirubin,Total 0.7 mg/dL (0.2-1.3); Blood Urea Nitrogen 15 mg/dL (7-17); Carbon Dioxide > 40 mmol/L (22-30); Chloride 86 mmol/L (98-107); Estimated CRCL calculation 88 ml/min; Estimated Glomerular Filt Rate > 60; Glucose 139 mg/dL (65-110); Potassium 3.1 mmol/L (3.4-5.0); Sodium 134 mmol/L (137-145)
[2024-11-17] MEDS: PRAMIPEXOLE 0.5 MG TABLET PO ×3 (09:48→16:35)
[2024-11-17] MEDS: FUROSEMIDE INJ 40 MG/4 ML VIAL IV PUSH ×2 (09:48→18:40)
[2024-11-17] MEDS: AMIODARONE HCL 200 MG TABLET PO (09:48)
[2024-11-17] MEDS: MIDODRINE HCL 2.5 MG TABLET 5 MG PO ×3 (09:48→16:35)
[2024-11-17] MEDS: SODIUM CHLORIDE 1 GM TABLET PO (09:48)
[2024-11-17] MEDS: PREGABALIN (*CRX) 75 MG CAPSULE 150 MG PO ×2 (09:48→16:35)
[2024-11-17] MEDS: methocarbamoL 750 MG TABLET PO ×3 (09:49→16:35)
--- NOTE | 2024-11-17 12:53 | PM.PNCARD ---
Progress Note: A&P Assessment and Plan (1) Diastolic heart failure: Code(s): I50.30 - Unspecified diastolic (congestive) heart failure Status: Acute Assessment and Plan: As below (2) Atrial fibrillation with RVR: Code(s): I48.91 - Unspecified atrial fibrillation Status: Acute Assessment and Plan: AFib with RVR present. Continue amiodarone and resume warfarin when able. (3) Hypotension: Code(s): I95.9 - Hypotension, unspecified Status: Acute Assessment and Plan: Will discontinue salt tablets as this will only worsen her heart failure (4) Hypokalemia: Code(s): E87.6 - Hypokalemia Status: Acute Assessment and Plan: Potassium is low. Will replace with KCL 40 mEq p.o. x1 Plan 79-year-old woman with chronic diastolic heart and paroxysmal atrial fibrillation (on warfarin) who was brought in due to hypotension Acute on chronic diastolic heart failure -will decrease IV furosemide 40 mg IV daily and transition to oral diuretics tomorrow. She had been on Bumex as an outpatient -her shortness of breath and anasarca most likely multifactorial with contributions from diastolic heart failure, pneumonia, and hypo albumin state Hypotension: Her blood pressures have improved. Weaning midodrine as able. Paroxysmal atrial fibrillation -she is on warfarin at home -in the meantime continue amiodarone 200 mg p.o. daily for which she was discharged mostly for rate control Troponin elevation -the trend most likely is contributed due to volume overload with subsequent myocardial stress Subjective Date/time seen: 11/17/24 12:53 Interval history: Reason for visit: Acute/chronic diastolic heart failure HPI: 79-year-old woman with chronic diastolic heart and paroxysmal atrial fibrillation (on warfarin) who was brought in due to hypotension. She does complain that in the last few days she has been having more shortness of breath. She has also been having some productive cough. She is still recovering from her cervical spine fusion surgery for which she currently cannot move her head. Otherwise she denies any chest discomfort. Per the patient she was previously hospitalized for 40 lb weight gain and water weight for which they have diuresed her. She is previously at [facility]. She feels that her shortness of breath has been mildly worse compared to when she was discharged from [facility]. Denies any syncopal events. Date of service 11/16: Lower extremity edema still present, but improving. She reports tremors, which has been occurring since her surgery. Date of service 11/17/2024: Still has some swelling but improving. AFib with RVR noted at present. No chest pain. Review of Systems Constitutional: Constitutional: Denies body ache(s) ENT: Reports Normal hearing present Cardiovascular: Cardiovascular: Denies chest pain and Reports leg edema Respiratory: Respiratory: Denies dyspnea on exertion Exam Narrative: Pleasant appropriate Const: General: comfortable Other: Elderly frail appearing female HENMT: Face/Nose/Sinus: Normal nares present Mouth: Yes moist mucous membranes Eyes: Sclera: sclerae normal Neck: Neck: supple Other: JVD 8-10 cm Resp: Effort & Inspection: normal respiratory effort Auscultation: rales Cardio: Rate: tachycardic Rhythm: abnormal rhythm irregularly irregular Other: + Bilateral lower extremity edema GI: Inspection: non-distended GI Palp: Yes Soft to palpation Skin: General skin exam: normal color Neuro: Speech: normal speech Extrem: General: edema and pedal edema Psych: Mental Status: mental status grossly normal Affect: normal affect Objective Data Vital Signs Vital Signs: Vital Signs - 24 hr 11/16/24 14:00 11/16/24 14:45 11/16/24 16:00 Temperature 37.9 C H Pulse Rate 95 95 Respiratory Rate 20 Blood Pressure 98/62 L Pulse Oximetry 96 Oxygen Delivery Nasal Cannula Oxygen Flow Rate 1.5 11/16/24 16:00 11/16/24 16:00 11/16/24 19:29 Temperature 36.9 C Pulse Rate 103 H 95 Respiratory Rate 20 Blood Pressure 96/40 L Pulse Oximetry 99 96 Oxygen Delivery Nasal Cannula Oxygen Flow Rate 1.5 11/16/24 20:00 11/16/24 20:00 11/16/24 22:00 Temperature Pulse Rate 104 H 104 H 107 H Respiratory Rate 20 Blood Pressure Pulse Oximetry 96 Oxygen Delivery Nasal Cannula Oxygen Flow Rate 2 11/17/24 00:00 11/17/24 00:00 11/17/24 00:00 Temperature 37.1 C Pulse Rate 91 91 105 H Respiratory Rate 20 20 Blood Pressure 116/57 L Pulse Oximetry 96 100 Oxygen Delivery Nasal Cannula Oxygen Flow Rate 2 11/17/24 01:37 11/17/24 03:55 11/17/24 04:00 Temperature Pulse Rate 101 H 101 H Respiratory Rate 20 Blood Pressure Pulse Oximetry 98 98 Oxygen Delivery Nasal Cannula Nasal Cannula Oxygen Flow Rate 2 2 11/17/24 04:00 11/17/24 08:00 11/17/24 09:48 Temperature 36.4 C 37.3 C Pulse Rate 102 H 105 H 99 Respiratory Rate 20 22 H Blood Pressure 96/51 L 116/54 L Pulse Oximetry 96 97 Oxygen Delivery Oxygen Flow Rate 11/17/24 12:00 Temperature 37.2 C Pulse Rate 103 H Respiratory Rate 22 H Blood Pressure 122/61 Pulse Oximetry 99 Oxygen Delivery Oxygen Flow Rate Intake/Output Intake/Output: Intake & Output 11/14/24 11/15/24 11/16/24 11/17/24 23:59 23:59 23:59 23:59 Intake Total 650 2990 1130 350 Output Total 6262 2850 850 Balance 650 -3235 -1720 -500 Meds/Results Medications: Active Medications Generic Name Dose Route Start Last Admin Trade Name Freq PRN Reason Stop Dose Admin Acetaminophen 650 mg 11/14/24 14:34 Acetaminophen 325 Mg Tablet PO Q4H PRN Mild Pain (1-3) or Fever Amiodarone HCl 200 mg 11/15/24 09:00 11/17/24 09:48 Amiodarone Hcl 200 Mg Tablet PO 200 mg DAILY JOSEPH Administration Furosemide 40 mg 11/15/24 10:00 11/17/24 09:48 Furosemide Inj 40 Mg/4 Ml Vial IV PUSH 40 mg BID JOSEPH Administration Piperacillin Sod/Tazobactam Sod 4.5 gm in 100 mls @ 200 mls/hr 11/15/24 00:00 11/17/24 06:25 Zosyn 4.5 Gm/Ns 100 Ml IVPB 100 mls/hr Q6HR JOSEPH Administration Albumin Human 100 mls @ 60 mls/hr 11/17/24 16:00 Albutein IVPB 11/17/24 17:39 ONCE ONE Lidocaine 2 patch 11/15/24 21:00 11/16/24 20:38 Lidocaine 5% Patch TOPICAL 2 patch HS JOSEPH Administration Methocarbamol 750 mg 11/15/24 09:00 11/17/24 09:49 Methocarbamol 750 Mg Tablet PO 750 mg TID JOSEPH Administration Midodrine 5 mg 11/16/24 13:00 11/17/24 09:48 Midodrine Hcl 2.5 Mg Tablet PO 5 mg TID JOSEPH Administration Ondansetron HCl 4 mg 11/14/24 16:32 11/17/24 07:21 Ondansetron Inj 4 Mg/2 Ml Vial IV PUSH 4 mg Q4H PRN Administration Nausea Oxycodone HCl 5 mg 11/14/24 18:25 11/17/24 02:20 Oxycodone Hcl (*Crx) 5 Mg Tab Ir PO 5 mg Q4H PRN Administration pain--MODERATE-SEVERE 4-10 Perflutren Lipid Microsphere 0 ml 11/15/24 09:32 Perflutren Lipid Microspheres 1.5 Ml Vial Diluted To 10 Ml Total Volume IV PUSH 11/18/24 09:32 ONCE PRN adequate visualization Protocol Pramipexole Dihydrochloride 0.5 mg 11/15/24 20:00 11/17/24 09:48 Pramipexole 0.5 Mg Tablet PO 0.5 mg TID JOSEPH Administration Pregabalin 150 mg 11/15/24 09:00 11/17/24 09:48 Pregabalin (*Crx) 75 Mg Capsule PO 150 mg BID JOSEPH Administration Sodium Chloride 1 gm 11/15/24 09:00 11/17/24 09:48 Sodium Chloride 1 Gm Tablet PO 1 gm DAILY@0900,1700 JOSEPH Administration Radiology Results: ITS Impressions Chest X-Ray 11/14/24 13:37 IMPRESSION: Bilateral pneumonia with highly suggestive underlying pulmonary edema. Right pleural effusion. Chest/Abdomen/Pelvis CT 11/14/24 15:25 IMPRESSION: Mural thickening and edema within the distal sigmoid colon and rectum, with infiltration of the presacral fat. Large bilateral pleural effusions, right greater than left. Left basilar consolidation. Hepatomegaly. Abdomen Ultrasound 11/15/24 15:39 IMPRESSION: Hepatomegaly. Small echogenic foci in the gallbladder which may be stones or polyps. Follow-up advised. Otherwise, normal limited abdominal ultrasound. Labs Labs: Laboratory Results - last 24 hr 11/16/24 11/17/24 11/17/24 15:12 08:35 08:36 WBC 11.3 H RBC 3.28 L Hgb 9.3 L Hct 31.4 L MCV 95.7 MCH 28.4 MCHC 29.6 L RDW 19.3 H Plt Count 330 MPV 8.9 PT 15.6 H INR 1.2 APTT 41.1 H Sodium 132 L 134 L Potassium 3.8 3.1 L Chloride 87 L 86 L Carbon Dioxide > 40 H > 40 H Anion Gap BUN 14 15 Creatinine 0.46 L 0.39 L Estim Creat Clear Calc 76 88 Estimated GFR > 60 > 60 Glucose 139 H 139 H Calcium 8.0 L 8.0 L Total Bilirubin 0.7 AST 32 ALT 20 Alkaline Phosphatase 101 Lactate Dehydrogenase 277 H Total Protein 6.0 L 6.0 L Albumin 3.2 L
[2024-11-17] MEDS: POTASSIUM CHLORIDE 20 MEQ PACKET (FOR LIQUID) 40 MEQ PO (13:17)
[2024-11-17] MEDS: ALBUMIN HUMAN 25% 25 GM/100 ML 100 ML IVPB (16:34)
[2024-11-17] MEDS: NYSTATIN 100,000 UNITS/ML SUSP 5 ML ORAL.SUSP PO ×2 (18:40→21:59)
--- NOTE | 2024-11-17 19:00 | PC.NURSE ---
Addendum entered by Sonal Whelan RN 11/17/24 19:04: Detailed message left with Johann. Son, Rod, made aware of room transfer. Original Note: This patient, Tammy Estrella, was transferred to [facility] on 11/17/24 at 1900. Personal belongings sent with patient. Report given to MOLLY Valle. Appropriate documentation sent with patient.Spouse, Johann, made aware.
[2024-11-17] MEDS: AMOXICILLIN/CLAVULANATE K 875-125 MG TAB 1 TABLET PO (21:59)
[2024-11-17] MEDS: LIDOCAINE 5% PATCH 2 PATCH TOPICAL (21:59)
[2024-11-18] VITALS (11 sets, daily range): BP systolic 116–123; BP diastolic 54–59; PULSE 74–99; RESP 18; TEMP 36.4–36.9; O2SAT 93–100
[2024-11-18 02:58] LABS: Toxigenic C. Diff NEGATIVE (NEGATIVE)
[2024-11-18 06:04] LABS: Hematocrit 30.2 % (37.0-47.0); Hemoglobin 8.8 g/dL (12.0-15.0); Mean Corpuscular HGB Conc 29.1 g/dl (32-36); Mean Corpuscular Volume 96.2 fl (80-100); Mean Platelet Volume 9.1 fl (7.4-10.4); Platelet Count Result 312 k/mm3 (150-375); Red Blood Count 3.14 M/mm3 (4.2-5.4); Red Cell Distribution Width 18.6 % (11.5-14.5); White Blood Count 9.9 K/mm3 (4.5-10.0)
[2024-11-18 06:05] LABS: Alanine Aminotransferase 18 U/L (6-35); Albumin Level 3.2 g/dL (3.5-5.1); Alkaline Phosphatase 101 U/L (38-126); Aspartate Amino Transferase 33 U/L (14-36); Bilirubin,Total 0.7 mg/dL (0.2-1.3); Blood Urea Nitrogen 12 mg/dL (7-17); Calcium 7.8 mg/dL (8.4-10.2); Carbon Dioxide > 40 mmol/L (22-30); Chloride 85 mmol/L (98-107); Estimated CRCL calculation 90 ml/min; Estimated Glomerular Filt Rate > 60; Glucose 108 mg/dL (65-110); Potassium 3.3 mmol/L (3.4-5.0); Sodium 131 mmol/L (137-145)
--- NOTE | 2024-11-18 09:04 | P.PNIM_ITS ---
Progress Note: A&P Assessment and Plan (1) Hypotension: Code(s): I95.9 - Hypotension, unspecified Status: Acute Assessment and Plan: resolved likely from pneumonia monitor (2) Pneumonia: Code(s): J18.9 - Pneumonia, unspecified organism Status: Acute Assessment and Plan: CT chest reviewed MRSA negative Blood culture pending Stopped Vanc Continue Cefepime (3) Pleural effusion: Code(s): J90 - Pleural effusion, not elsewhere classified Status: Acute Assessment and Plan: CXR:Small bilateral pleural effusions, right greater than left with mild pulmonary vascular congestion. A focused bilateral chest ultrasound may be performed for a sufficient evaluation of the adequacy of the pleural effusions for thoracentesis. Order Chest US Order thoracentesis Warfarin being held ECHO shows left ventricular ejection fraction 60-65% Us liver shows Hepatomegaly. Small echogenic foci in the gallbladder which may be stones or polyps. Follow-up advised. Otherwise, normal limited abdominal ultrasound. continue lasix in the meantime (4) Respiratory failure with hypoxia: Code(s): J96.91 - Respiratory failure, unspecified with hypoxia Status: Acute Assessment and Plan: Likely CHF and pneumonia Patient has positive JVD and bilateral edema 5++ CT chest showed large bilateral effusions and left basilar consolidation On Lasix 40mg PO QD Cardio decreased Lasix from 40 mg PO BID to QD S/P Zosyn Augmentin until 11/19 titrate oxygen Monitor (5) UTI (urinary tract infection): Code(s): N39.0 - Urinary tract infection, site not specified Status: Acute Assessment and Plan: Augmentin until 11/19 Culture and sensitivity pending (6) 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 Patient reports she was not taking Warfarin when she was in [place]. Possibly started at [facility] when she was there for cervical spine fusion surgery Sep. Holding warfarin for thoracentesis Plan DVT prophylaxis on SCDs, warfarin on hold for thoracentesis Subjective Date/time seen: 11/18/24 09:04 Interval history: I replaced potassium. I will do another dose of albumin and Lasix. An ultrasound of the chest to assess pleural fluid effusion is pending. Warfarin is still on hold. I ordered an INR and hepatitis panel. I called Dr.Nicholas Godfrey's office and spoke with his nurse, who wanted the patient to send pictures of the surgical site. If Dr. Randell Godfrey agreed to remove the suture, he would then send the fax regarding whether removing the cervical sutures is safe since the patient can be discharged tomorrow. Review of Systems Review of Systems: 12 systems were reviewed and are negativ e except for as per HPI. Exam Narrative: General: Chronically ill-appearing no acute respiratory distress HEENT: normocephalic, atraumatic. Mucous membranes moist. EOMI, PERRLA, bilateral sclera anicteric, no conjunctival injection. Neck supple without JVD, lymphadenopathy, or bruit. Respiratory: clear to ascultation bilaterally. No rales/rhonic/wheezes. Cardiovascular: Regular rate and rhythm, normal S1-S2 upon ascultation. No murmurs, rubs, or clicks. PMI is nondisplaced, capillary refill less than 3 second. Abdomen: Soft, round, no pulsatile masses, nondistended and nontender. No rebound, no guarding. No CVA tenderness, no hepatosplenomegaly. Bowel sounds present to all four quadrants. No high pitch or tinkling sounds, resonant to percussion. Extremities: bilateral LE edema grade 5 Neuro: Alert and orientated x 4. PERRLA. Cranial nerves 2-12 intact without focal deficit. Skin: Warm, dry, and intact, without rash, erythema, or lesion. Psych: pleasant, cooperative, normal speech, normal affect, no hallucinations, no dysarthia Objective Data Vital Signs Vital Signs: Vital Signs - 24 hr 11/17/24 09:48 11/17/24 10:00 11/17/24 12:00 Temperature 98.9 F Pulse Rate 99 101 H 103 H Respiratory Rate 22 H Blood Pressure 122/61 Pulse Oximetry 99 Oxygen Delivery Oxygen Flow Rate 11/17/24 12:00 11/17/24 16:00 11/17/24 16:00 Temperature 98.6 F Pulse Rate 99 98 102 H Respiratory Rate 22 H Blood Pressure 104/48 L Pulse Oximetry 100 Oxygen Delivery Oxygen Flow Rate 11/17/24 20:00 11/17/24 21:55 11/18/24 00:00 Temperature 98.4 F Pulse Rate 72 95 Respiratory Rate 18 Blood Pressure 117/56 L Pulse Oximetry 98 98 Oxygen Delivery Nasal Cannula Oxygen Flow Rate 2 11/18/24 04:00 11/18/24 06:07 Temperature 98.5 F Pulse Rate 91 99 Respiratory Rate 18 Blood Pressure 123/57 L Pulse Oximetry 93 Oxygen Delivery Oxygen Flow Rate Intake/Output Intake/Output: Intake & Output 11/15/24 11/16/24 11/17/24 11/18/24 23:59 23:59 23:59 23:59 Intake Total 2990 1130 1220 550 Output Total 6280 6410 2750 800 [facility] -3235 -1720 -1530 -250 Meds/Results Medications: Active Medications Generic Name Dose Route Start Last Admin Trade Name Freq PRN Reason Stop Dose Admin Acetaminophen 650 mg 11/14/24 14:34 Acetaminophen 325 Mg Tablet PO Q4H PRN Mild Pain (1-3) or Fever Amiodarone HCl 200 mg 11/15/24 09:00 11/17/24 09:48 Amiodarone Hcl 200 Mg Tablet PO 200 mg DAILY JOSEPH Administration Amoxicillin/Clavulanate Potassium 1 tablet 11/17/24 21:00 11/17/24 21:59 Amoxicillin/Clavulanate K 875-125 Mg Tab PO 11/19/24 21:01 1 tablet Q12HR JOSEPH Administration Furosemide 40 mg 11/18/24 09:00 Furosemide Inj 40 Mg/4 Ml Vial IV PUSH DAILY JOSEPH Lidocaine 2 patch 11/15/24 21:00 11/17/24 21:59 Lidocaine 5% Patch TOPICAL 2 patch HS JOSEPH Administration Methocarbamol 750 mg 11/15/24 09:00 11/17/24 16:35 Methocarbamol 750 Mg Tablet PO 750 mg TID JOSEPH Administration Midodrine 5 mg 11/16/24 13:00 11/17/24 16:35 Midodrine Hcl 2.5 Mg Tablet PO 5 mg TID JOSEPH Administration Nystatin 5 ml 11/17/24 17:00 11/17/24 21:59 Nystatin 100,000 Units/Ml Susp 5 Ml Oral.Susp PO 5 ml QID JOSEPH Administration Ondansetron HCl 4 mg 11/14/24 16:32 11/17/24 07:21 Ondansetron Inj 4 Mg/2 Ml Vial IV PUSH 4 mg Q4H PRN Administration Nausea Oxycodone HCl 5 mg 11/14/24 18:25 11/17/24 02:20 Oxycodone Hcl (*Crx) 5 Mg Tab Ir PO 5 mg Q4H PRN Administration pain--MODERATE-SEVERE 4-10 Perflutren Lipid Microsphere 0 ml 11/15/24 09:32 Perflutren Lipid Microspheres 1.5 Ml Vial Diluted To 10 Ml Total Volume IV PUSH 11/18/24 09:32 ONCE PRN adequate visualization Protocol Potassium Chloride 40 meq 11/18/24 09:03 Potassium Chloride 20 Meq Er Tablet PO 11/18/24 09:04 ONCE ONE Pramipexole Dihydrochloride 0.5 mg 11/15/24 20:00 11/17/24 16:35 Pramipexole 0.5 Mg Tablet PO 0.5 mg TID JOSEPH Administration Pregabalin 150 mg 11/15/24 09:00 11/17/24 16:35 Pregabalin (*Crx) 75 Mg Capsule PO 150 mg BID JOSEPH Administration Radiology Results: ITS Impressions Chest/Abdomen/Pelvis CT 11/14/24 15:25 IMPRESSION: Mural thickening and edema within the distal sigmoid colon and rectum, with infiltration of the presacral fat. Large bilateral pleural effusions, right greater than left. Left basilar consolidation. Hepatomegaly. Abdomen Ultrasound 11/15/24 15:39 IMPRESSION: Hepatomegaly. Small echogenic foci in the gallbladder which may be stones or polyps. Follow-up advised. Otherwise, normal limited abdominal ultrasound. Chest X-Ray 11/17/24 13:11 IMPRESSION: Small bilateral pleural effusions, right greater than left with mild pulmonary vascular congestion. A focused bilateral chest ultrasound may be performed for a sufficient evaluation of the adequacy of the pleural effusions for thoracentesis. Labs Labs: Laboratory Results - last 24 hr 11/17/24 11/17/24 11/18/24 08:35 08:36 02:11 WBC RBC Hgb Hct MCV MCH MCHC RDW Plt Count MPV PT 15.6 H INR 1.2 APTT 41.1 H Sodium 134 L Potassium 3.1 L Chloride 86 L Carbon Dioxide > 40 H Anion Gap BUN 15 Creatinine 0.39 L Estim Creat Clear Calc 88 Estimated GFR > 60 Glucose 139 H Calcium 8.0 L Total Bilirubin 0.7 AST 32 ALT 20 Alkaline Phosphatase 101 Total Protein 6.0 L Albumin 3.2 L C. difficile (PCR) Negative 11/18/24 05:39 WBC 9.9 RBC 3.14 L Hgb 8.8 L Hct 30.2 L MCV 96.2 MCH 28.0 MCHC 29.1 L RDW 18.6 H Plt Count 312 MPV 9.1 PT INR APTT Sodium 131 L Potassium 3.3 L Chloride 85 L Carbon Dioxide > 40 H Anion Gap BUN 12 Creatinine 0.38 L Estim Creat Clear Calc 90 Estimated GFR > 60 Glucose 108 Calcium 7.8 L Total Bilirubin 0.7 AST 33 ALT 18 Alkaline Phosphatase 101 Total Protein 6.0 L Albumin 3.2 L C. difficile (PCR) Quality VTE Prophylaxis VTE prophylaxis: mechanical ordered Hospitalist MIPS Advance Care Plan I have confirmed that the patient's Advanced Care Plan is present, code status is documented, or surrogate decision maker is listed in patient medical record.: Yes Medication Reconciliation I have utilized all available resources to obtain, update and review the patients current medications (includes all prescriptions, OTC, herbals, cannabis, and nutritional supplements).: Yes
[2024-11-18] MEDS: MIDODRINE HCL 2.5 MG TABLET 5 MG PO (09:05)
[2024-11-18] MEDS: AMOXICILLIN/CLAVULANATE K 875-125 MG TAB 1 TABLET PO ×2 (09:05→20:50)
[2024-11-18] MEDS: PRAMIPEXOLE 0.5 MG TABLET PO ×3 (09:05→17:22)
[2024-11-18] MEDS: methocarbamoL 750 MG TABLET PO ×3 (09:05→17:22)
[2024-11-18] MEDS: NYSTATIN 100,000 UNITS/ML SUSP 5 ML ORAL.SUSP PO ×4 (09:05→20:50)
[2024-11-18] MEDS: PREGABALIN (*CRX) 75 MG CAPSULE 150 MG PO ×2 (09:05→17:22)
[2024-11-18] MEDS: AMIODARONE HCL 200 MG TABLET PO (09:05)
[2024-11-18] MEDS: POTASSIUM CHLORIDE 20 MEQ ER TABLET 40 MEQ PO (09:15)
[2024-11-18] MEDS: ALBUMIN HUMAN 25% 25 GM/100 ML 100 ML IVPB (09:41)
[2024-11-18 10:04] LABS: INR 1.1
[2024-11-18 11:07] LABS: Hepatitis B Surface Antigen Negative (Negative)
[2024-11-18] MEDS: FUROSEMIDE INJ 40 MG/4 ML VIAL IV PUSH ×2 (11:11→17:23)
[2024-11-18 11:24] LABS: Hepatitis C Virus Antibody Negative (Negative)
--- NOTE | 2024-11-18 12:33 | PM.PNCARD ---
Progress Note: A&P Assessment and Plan (1) Diastolic heart failure: Code(s): I50.30 - Unspecified diastolic (congestive) heart failure Status: Acute Plan 79-year-old woman with chronic diastolic heart and paroxysmal atrial fibrillation (on warfarin) who was brought in due to hypotension Acute on chronic diastolic heart failure -Continue Lasix 40 mg IV BID. -Her shortness of breath and anasarca most likely multifactorial with contributions from diastolic heart failure, pneumonia, and hypo albumin state Hypotension: -Her blood pressures have improved. She was started on Midodrine 10mg TID, will try to wean off. Decreased to 5mg TID. Will decrease further to 2.5mg TID. Paroxysmal atrial fibrillation -Continue Amiodarone. Can resume Warfarin when acceptable. Goal INR is 2-3. Does not need bridging when resuming Warfarin. Troponin elevation -The trend most likely is contributed due to volume overload with subsequent myocardial stress Subjective Date/time seen: 11/18/24 12:33 Interval history: Reason for visit: Acute/chronic diastolic heart failure HPI: 79-year-old woman with chronic diastolic heart and paroxysmal atrial fibrillation (on warfarin) who was brought in due to hypotension. She does complain that in the last few days she has been having more shortness of breath. She has also been having some productive cough. She is still recovering from her cervical spine fusion surgery for which she currently cannot move her head. Otherwise she denies any chest discomfort. Per the patient she was previously hospitalized for 40 lb weight gain and water weight for which they have diuresed her. She is previously at [facility]. She feels that her shortness of breath has been mildly worse compared to when she was discharged from [facility]. Denies any syncopal events. Date of service 11/16: Lower extremity edema still present, but improving. She reports tremors, which has been occurring since her surgery. Date of service 11/17/2024: Still has some swelling but improving. AFib with RVR noted at present. No chest pain. Date of service 11/18: Feeling okay. Still with lower extremity edema. Review of Systems Cardiovascular: Cardiovascular: Reports as per HPI Exam Const: Other: Elderly frail appearing female Resp: Effort & Inspection: normal respiratory effort Cardio: Rhythm: abnormal rhythm irregularly irregular Other: + Bilateral lower extremity edema Neuro: Speech: normal speech Psych: Mental Status: mental status grossly normal Affect: normal affect Objective Data Vital Signs Vital Signs: Vital Signs - 24 hr 11/17/24 16:00 11/17/24 16:00 11/17/24 20:00 Temperature 37.0 C Pulse Rate 98 102 H Respiratory Rate 22 H Blood Pressure 104/48 L Pulse Oximetry 100 98 Oxygen Delivery Nasal Cannula Oxygen Flow Rate 2 11/17/24 21:55 11/18/24 00:00 11/18/24 04:00 Temperature 36.9 C Pulse Rate 72 95 91 Respiratory Rate 18 Blood Pressure 117/56 L Pulse Oximetry 98 Oxygen Delivery Oxygen Flow Rate 11/18/24 06:07 11/18/24 09:05 11/18/24 09:30 Temperature 36.9 C Pulse Rate 99 83 Respiratory Rate 18 Blood Pressure 123/57 L Pulse Oximetry 93 97 Oxygen Delivery Nasal Cannula Oxygen Flow Rate 2 Intake/Output Intake/Output: Intake & Output 11/15/24 11/16/24 11/17/24 11/18/24 23:59 23:59 23:59 23:59 Intake Total 2990 1130 1220 1010 Output Total 6225 2850 2750 800 Balance -3235 -1720 -1530 210 Meds/Results Medications: Active Medications Generic Name Dose Route Start Last Admin Trade Name Freq PRN Reason Stop Dose Admin Acetaminophen 650 mg 11/14/24 14:34 Acetaminophen 325 Mg Tablet PO Q4H PRN Mild Pain (1-3) or Fever Amiodarone HCl 200 mg 11/15/24 09:00 11/18/24 09:05 Amiodarone Hcl 200 Mg Tablet PO 200 mg DAILY JOSEPH Administration Amoxicillin/Clavulanate Potassium 1 tablet 11/17/24 21:00 11/18/24 09:05 Amoxicillin/Clavulanate K 875-125 Mg Tab PO 11/19/24 21:01 1 tablet Q12HR JOSEPH Administration Furosemide 40 mg 11/18/24 09:00 11/18/24 11:11 Furosemide Inj 40 Mg/4 Ml Vial IV PUSH 40 mg DAILY JOSEPH Administration Lidocaine 2 patch 11/15/24 21:00 11/17/24 21:59 Lidocaine 5% Patch TOPICAL 2 patch HS JOSEPH Administration Methocarbamol 750 mg 11/15/24 09:00 11/18/24 09:05 Methocarbamol 750 Mg Tablet PO 750 mg TID JOSEPH Administration Midodrine 2.5 mg 11/18/24 13:00 Midodrine Hcl 2.5 Mg Tablet PO TID JOSEPH Nystatin 5 ml 11/17/24 17:00 11/18/24 09:05 Nystatin 100,000 Units/Ml Susp 5 Ml Oral.Susp PO 5 ml QID JOSEPH Administration Ondansetron HCl 4 mg 11/14/24 16:32 11/17/24 07:21 Ondansetron Inj 4 Mg/2 Ml Vial IV PUSH 4 mg Q4H PRN Administration Nausea Oxycodone HCl 5 mg 11/14/24 18:25 11/17/24 02:20 Oxycodone Hcl (*Crx) 5 Mg Tab Ir PO 5 mg Q4H PRN Administration pain--MODERATE-SEVERE 4-10 Pramipexole Dihydrochloride 0.5 mg 11/15/24 20:00 11/18/24 09:05 Pramipexole 0.5 Mg Tablet PO 0.5 mg TID JOSEPH Administration Pregabalin 150 mg 11/15/24 09:00 11/18/24 09:05 Pregabalin (*Crx) 75 Mg Capsule PO 150 mg BID JOSEHP Administration Radiology Results: ITS Impressions Chest/Abdomen/Pelvis CT 11/14/24 15:25 IMPRESSION: Mural thickening and edema within the distal sigmoid colon and rectum, with infiltration of the presacral fat. Large bilateral pleural effusions, right greater than left. Left basilar consolidation. Hepatomegaly. Abdomen Ultrasound 11/15/24 15:39 IMPRESSION: Hepatomegaly. Small echogenic foci in the gallbladder which may be stones or polyps. Follow-up advised. Otherwise, normal limited abdominal ultrasound. Chest X-Ray 11/17/24 13:11 IMPRESSION: Small bilateral pleural effusions, right greater than left with mild pulmonary vascular congestion. A focused bilateral chest ultrasound may be performed for a sufficient evaluation of the adequacy of the pleural effusions for thoracentesis. Labs Labs: Laboratory Results - last 24 hr 11/18/24 11/18/24 11/18/24 02:11 05:39 09:36 WBC 9.9 RBC 3.14 L Hgb 8.8 L Hct 30.2 L MCV 96.2 MCH 28.0 MCHC 29.1 L RDW 18.6 H Plt Count 312 MPV 9.1 PT 15.0 H INR 1.1 Sodium 131 L Potassium 3.3 L Chloride 85 L Carbon Dioxide > 40 H Anion Gap BUN 12 Creatinine 0.38 L Estim Creat Clear Calc 90 Estimated GFR > 60 Glucose 108 Calcium 7.8 L Total Bilirubin 0.7 AST 33 ALT 18 Alkaline Phosphatase 101 Total Protein 6.0 L Albumin 3.2 L C. difficile (PCR) Negative Hep Bs Antigen Negative Hepatitis C Ab Screen Negative
[2024-11-18] MEDS: MIDODRINE HCL 2.5 MG TABLET PO ×2 (13:18→17:22)
[2024-11-18] MEDS: LIDOCAINE 5% PATCH 2 PATCH TOPICAL (20:50)
[2024-11-19] VITALS: PULSE 91
[2024-11-19 00:21] LABS: HAV RESULT Negative (Negative); Hepatitis B Core IgM Result Negative (Negative)
[2024-11-19 04:00] VITALS: PULSE 90
[2024-11-19 04:55] VITALS: BP 119/71; PULSE 92; RESP 18; TEMP 36.6; O2SAT 97
[2024-11-19 06:02] LABS: Hematocrit 30.7 % (37.0-47.0); Hemoglobin 9.1 g/dL (12.0-15.0); Mean Corpuscular HGB Conc 29.6 g/dl (32-36); Mean Corpuscular Hemoglobin 28.1 pg (26-34); Mean Corpuscular Volume 94.8 fl (80-100); Mean Platelet Volume 9.2 fl (7.4-10.4); Platelet Count Result 348 k/mm3 (150-375); Red Blood Count 3.24 M/mm3 (4.2-5.4); Red Cell Distribution Width 18.2 % (11.5-14.5); White Blood Count 9.1 K/mm3 (4.5-10.0)
[2024-11-19 06:11] LABS: Alanine Aminotransferase 19 U/L (6-35); Albumin Level 3.4 g/dL (3.5-5.1); Alkaline Phosphatase 103 U/L (38-126); Aspartate Amino Transferase 33 U/L (14-36); Bilirubin,Total 0.7 mg/dL (0.2-1.3); Blood Urea Nitrogen 8 mg/dL (7-17); Calcium 8.2 mg/dL (8.4-10.2); Carbon Dioxide > 40 mmol/L (22-30); Chloride 81 mmol/L (98-107); Estimated CRCL calculation 104 ml/min; Estimated Glomerular Filt Rate > 60; Glucose 99 mg/dL (65-110); Potassium 3.1 mmol/L (3.4-5.0); Sodium 132 mmol/L (137-145)
[2024-11-19 06:24] LABS: INR 1.1; Prothrombin Time 14.4 Seconds (11.1-14.7)
[2024-11-19 08:00] VITALS: PULSE 93
[2024-11-19 09:50] VITALS: PULSE 91
[2024-11-19] MEDS: PREGABALIN (*CRX) 75 MG CAPSULE 150 MG PO (09:50)
[2024-11-19] MEDS: MIDODRINE HCL 2.5 MG TABLET PO (09:50)
[2024-11-19] MEDS: AMOXICILLIN/CLAVULANATE K 875-125 MG TAB 1 TABLET PO (09:50)
[2024-11-19] MEDS: AMIODARONE HCL 200 MG TABLET PO (09:50)
[2024-11-19] MEDS: NYSTATIN 100,000 UNITS/ML SUSP 5 ML ORAL.SUSP PO (09:50)
[2024-11-19] MEDS: PRAMIPEXOLE 0.5 MG TABLET PO (09:50)
[2024-11-19] MEDS: FUROSEMIDE INJ 40 MG/4 ML VIAL IV PUSH (09:51)
[2024-11-19] MEDS: methocarbamoL 750 MG TABLET PO (09:51)
[2024-11-19] MEDS: POTASSIUM CHLORIDE 20 MEQ ER TABLET 40 MEQ PO (11:11)
--- NOTE | 2024-11-19 11:21 | P.PNCA_ITS ---
Progress Note: A&P Assessment and Plan (1) Diastolic heart failure: Code(s): I50.30 - Unspecified diastolic (congestive) heart failure Status: Acute Plan 79-year-old woman with chronic diastolic heart and paroxysmal atrial fibr illation (on warfarin) who was brought in due to hypotension Acute on chronic diastolic heart failure -Can transition back to her home Bumex dosing. -Her shortness of breath and anasarca most likely multifactorial with contributions from diastolic heart failure, pneumonia, and hypo albumin state Hypotension: -Her blood pressures have improved. Will discontinue the Midodrine. Paroxysmal atrial fibrillation -Continue Amiodarone. Can resume Warfarin when acceptable. Goal INR is 2-3. Does not need bridging when resuming Warfarin. Troponin elevation -The trend most likely is contributed due to volume overload with subsequent myocardial stress Subjective Date/time seen: 11/19/24 11:21 Interval history: Reason for visit: Acute/chronic diastolic heart failure HPI: 79-year-old woman with chronic diastolic heart and paroxysmal atrial fibrillation (on warfarin) who was brought in due to hypotension. She does complain that in the last few days she has been having more shortness of breath. She has also been having some productive cough. She is still recovering from her cervical spine fusion surgery for which she currently cannot move her head. Otherwise she denies any chest discomfort. Per the patient she was previously hospitalized for 40 lb weight gain and water weight for which they have diuresed her. She is previously at [facility]. She feels that her shortness of breath has been mildly worse compared to when she was discharged from [facility]. Denies any syncopal events. Date of service 11/16: Lower extremity edema still present, but improving. She reports tremors, which has been occurring since her surgery. Date of service 11/17/2024: Still has some swelling but improving. AFib with RVR noted at present. No chest pain. Date of service 11/18: Feeling okay. Still with lower extremity edema. Date of service 11/19: Feeling better. Reports pain in left buttocks area. Tele with rate controlled AFIB. Review of Systems Cardiovascular: Cardiovascular: Reports as per HPI Exam Const: Other: Elderly frail appearing female Resp: Effort & Inspection: normal respiratory effort Other: On supplemental oxygen Cardio: Rhythm: abnormal rhythm irregularly irregular Other: + Bilateral lower extremity edema Neuro: Speech: normal speech Psych: Mental Status: mental status grossly normal Affect: normal affect Objective Data Vital Signs Vital Signs: Vital Signs - 24 hr 11/18/24 12:05 11/18/24 14:00 11/18/24 16:04 Temperature 36.4 C Pulse Rate 98 74 95 Respiratory Rate 18 Blood Pressure 118/59 L Pulse Oximetry 97 11/18/24 19:36 11/18/24 20:00 11/19/24 00:00 Temperature 36.7 C Pulse Rate 98 89 91 Respiratory Rate 18 Blood Pressure 116/54 L Pulse Oximetry 100 11/19/24 04:00 11/19/24 04:55 11/19/24 08:00 Temperature 36.6 C Pulse Rate 90 92 93 Respiratory Rate 18 Blood Pressure 119/71 Pulse Oximetry 97 11/19/24 09:50 Temperature Pulse Rate 91 Respiratory Rate Blood Pressure Pulse Oximetry Intake/Output Intake/Output: Intake & Output 11/16/24 11/17/24 11/18/24 11/19/24 23:59 23:59 23:59 23:59 Intake Total 1130 1220 1907 780 Output Total 2850 2750 1210 1300 Balance -1720 -1530 697 -520 Meds/Results Medications: Active Medications Generic Name Dose Route Start Last Admin Trade Name Dewayne PRN Reason Stop Dose Admin Acetaminophen 650 mg 11/14/24 14:34 Acetaminophen 325 Mg Tablet PO Q4H PRN Mild Pain (1-3) or Fever Amiodarone HCl 200 mg 11/15/24 09:00 11/19/24 09:50 Amiodarone Hcl 200 Mg Tablet PO 200 mg DAILY JOSEPH Administration Amoxicillin/Clavulanate Potassium 1 tablet 11/17/24 21:00 11/19/24 09:50 Amoxicillin/Clavulanate K 875-125 Mg Tab PO 11/19/24 21:01 1 tablet Q12HR JOSEPH Administration Furosemide 40 mg 11/18/24 17:00 11/19/24 09:51 Furosemide Inj 40 Mg/4 Ml Vial IV PUSH 40 mg BID JOSEPH Administration Lidocaine 2 patch 11/15/24 21:00 11/18/24 20:50 Lidocaine 5% Patch TOPICAL 2 patch HS JOSEPH Administration Methocarbamol 750 mg 11/15/24 09:00 11/19/24 09:51 Methocarbamol 750 Mg Tablet PO 750 mg TID JOSEPH Administration Nystatin 5 ml 11/17/24 17:00 11/19/24 09:50 Nystatin 100,000 Units/Ml Susp 5 Ml Oral.Susp PO 5 ml QID JOSEPH Administration Ondansetron HCl 4 mg 11/14/24 16:32 11/17/24 07:21 Ondansetron Inj 4 Mg/2 Ml Vial IV PUSH 4 mg Q4H PRN Administration Nausea Oxycodone HCl 5 mg 11/14/24 18:25 11/17/24 02:20 Oxycodone Hcl (*Crx) 5 Mg Tab Ir PO 5 mg Q4H PRN Administration pain--MODERATE-SEVERE 4-10 Pramipexole Dihydrochloride 0.5 mg 11/15/24 20:00 11/19/24 09:50 Pramipexole 0.5 Mg Tablet PO 0.5 mg TID JOSEPH Administration Pregabalin 150 mg 11/15/24 09:00 11/19/24 09:50 Pregabalin (*Crx) 75 Mg Capsule PO 150 mg BID JOSEPH Administration Radiology Results: ITS Impressions Chest/Abdomen/Pelvis CT 11/14/24 15:25 IMPRESSION: Mural thickening and edema within the distal sigmoid colon and rectum, with infiltration of the presacral fat. Large bilateral pleural effusions, right greater than left. Left basilar consolidation. Hepatomegaly. Abdomen Ultrasound 11/15/24 15:39 IMPRESSION: Hepatomegaly. Small echogenic foci in the gallbladder which may be stones or polyps. Follow-up advised. Otherwise, normal limited abdominal ultrasound. Chest X-Ray 11/17/24 13:11 IMPRESSION: Small bilateral pleural effusions, right greater than left with mild pulmonary vascular congestion. A focused bilateral chest ultrasound may be performed for a sufficient evaluation of the adequacy of the pleural effusions for thoracentesis. Labs Labs: Laboratory Results - last 24 hr 11/18/24 11/19/24 09:36 05:42 WBC 9.1 RBC 3.24 L Hgb 9.1 L Hct 30.7 L MCV 94.8 MCH 28.1 MCHC 29.6 L RDW 18.2 H Plt Count 348 MPV 9.2 PT 14.4 INR 1.1 Sodium 132 L Potassium 3.1 L Chloride 81 L Carbon Dioxide > 40 H Anion Gap BUN 8 Creatinine 0.32 L Estim Creat Clear Calc 104 Estimated GFR > 60 Glucose 99 Calcium 8.2 L Total Bilirubin 0.7 AST 33 ALT 19 Alkaline Phosphatase 103 Total Protein 6.0 L Albumin 3.4 L Hepatitis A IgM Ab Negative Hep B Core IgM Ab Negative Hepatitis C Ab Screen Negative
[2024-11-19] MEDS: oxyCODONE HCL (*CRX) 5 MG TAB IR PO (11:56)
--- NOTE | 2024-11-19 17:21 | P.DS_ITS ---
DS: Admitting Diagnosis Discharge Date 11/19/24 Admitting Diagnosis Hypotension DS: Discharge Diagnosis Discharge Diagnosis (1) Hypotension: Code(s): I95.9 - Hypotension, unspecified Status: Acute Assessment and Plan: resolved likely from pneumonia monitor (2) Pneumonia: Code(s): J18.9 - Pneumonia, unspecified organism Status: Acute Assessment and Plan: CT chest reviewed MRSA negative Blood culture pending Stopped Vanc Continue Cefepime (3) Pleural effusion: Code(s): J90 - Pleural effusion, not elsewhere classified Status: Acute Assessment and Plan: CXR:Small bilateral pleural effusions, right greater than left with mild pulmonary vascular congestion. A focused bilateral chest ultrasound may be performed for a sufficient evaluation of the adequacy of the pleural effusions for thoracentesis. Order Chest US Order thoracentesis Warfarin being held ECHO shows left ventricular ejection fraction 60-65% Us liver shows Hepatomegaly. Small echogenic foci in the gallbladder which may be stones or polyps. Follow-up advised. Otherwise, normal limited abdominal ultrasound. continue lasix in the meantime (4) Respiratory failure with hypoxia: Code(s): J96.91 - Respiratory failure, unspecified with hypoxia Status: Acute Assessment and Plan: Likely CHF and pneumonia Patient has positive JVD and bilateral edema 5++ CT chest showed large bilateral effusions and left basilar consolidation On Lasix 40mg PO QD Cardio decreased Lasix from 40 mg PO BID to QD S/P Zosyn Augmentin until 11/19 titrate oxygen Monitor (5) UTI (urinary tract infection): Code(s): N39.0 - Urinary tract infection, site not specified Status: Acute Assessment and Plan: Augmentin until 11/19 Culture and sensitivity pending (6) 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 Patient reports she was not taking Warfarin when she was in [place]. Possibly started at [place] when she was there for cervical spine fusion surgery Sep. Holding warfarin for thoracentesis DS: Summary Hospital Course Hospital Course: Hospital Course at [place], [place] form 11/15-11/19 Brief history: The patient has a complex history regarding the spinal cord. The patient had multiple surgeries on the spine and the latest one on the cervical spine on October 05, 2024, at [place], [place]. We are not able obtain the medical records from [place]. According to the patient she might have A.Fibrillation for which they Amiodarone(possibly due to low BP) and Warfarin (due to low cost?). The patient also had C diff during her previous hospitalization. The patient went to [facility] and completed rehab and on the way to the senior care, had an episode of low blood pressure and was taken to [facility] ED. The patient was given fluids in the ED. The patient initially started on midodrine 10 mg t.i.d. and reduced to midodrine 5 mg p.o. t.i.d. When patient came to [facility] she was on Warfarin 2.5mg PO QD which was never started to possibly of getting thoracentesis. Patient did not receive thoracentesis but we did albumin infusion followed by Lasix which improved her symptoms. I called Dr.Nicholas Godfrey's office and spoke with his nurse([phone]), who wanted the patient to send pictures of the surgical site. If Dr. Randell Godfrey agreed to remove the suture, he would fax whether removing the cervical sutures is safe since the patient can be discharged tomorrow. -Please call Dr.Nicholas Martinez office [phone] for suture removal instr uctions. -Please obtain medical records from [facility] and possible change Warfarin to NOACs. -Please follow up the bilateral pleural effusion by repeat chest ray or chest US. -Follow up with Neurosurgeon ,Cardiology for A.Fib, Pulmonology/PCP for Pleural Effusion. -will continue warfarin and amiodarone . Holding her Acetazolamide and bumetanide due to low blood pressure but please discuss with the Cardiology and continue if needed Status at Discharge Cognitive/behavioral status at discharge: Stable Time Spent with Patient Time attestation: Total time spent providing and/or coordinating discharge services:45 minutes Exam Narrative: General: Chronically ill-appearing no acute respiratory distress HEENT: normocephalic, atraumatic. Mucous membranes moist. EOMI, PERRLA, bilateral sclera anicteric, no conjunctival injection. Neck supple without JVD, lymphadenopathy, or bruit. Respiratory: clear to ascultation bilaterally. No rales/rhonic/wheezes. Cardiovascular: Regular rate and rhythm, normal S1-S2 upon ascultation. No murmurs, rubs, or clicks. PMI is nondisplaced, capillary refill less than 3 second. Abdomen: Soft, round, no pulsatile masses, nondistended and nontender. No rebound, no guarding. No CVA tenderness, no hepatosplenomegaly. Bowel sounds present to all four quadrants. No high pitch or tinkling sounds, resonant to percussion. Extremities: bilateral LE edema grade 5 Neuro: Alert and orientated x 4. PERRLA. Cranial nerves 2-12 intact without focal deficit. Skin: Warm, dry, and intact, without rash, erythema, or lesion. Psych: pleasant, cooperative, normal speech, normal affect, no hallucinations, no dysarthia DS: Data Data Completed and Pending Pending studies at discharge: Pending at discharge 11/16/24 15:51 Cytology [PTH] Routine Labs on day of discharge: Labs from last 24 hours 11/19/24 11/18/24 05:42 09:36 WBC 9.1 RBC 3.24 L Hgb 9.1 L Hct 30.7 L MCV 94.8 MCH 28.1 MCHC 29.6 L RDW 18.2 H Plt Count 348 MPV 9.2 PT 14.4 INR 1.1 Sodium 132 L Potassium 3.1 L Chloride 81 L Carbon Dioxide > 40 H Anion Gap BUN 8 Creatinine 0.32 L Estim Creat Clear Calc 104 Estimated GFR > 60 Glucose 99 Calcium 8.2 L Total Bilirubin 0.7 AST 33 ALT 19 Alkaline Phosphatase 103 Total Protein 6.0 L Albumin 3.4 L Hepatitis A IgM Ab Negative Hep B Core IgM Ab Negative Preliminary micro results at discharge 11/14/24 13:11 Blood Culture - Preliminary Blood 11/14/24 12:54 Blood Culture - Preliminary Blood Imaging Radiologist's impression: ITS Impressions Chest X-Ray 11/14/24 13:37 IMPRESSION: Bilateral pneumonia with highly suggestive underlying pulmonary edema. Right pleural effusion. Chest/Abdomen/Pelvis CT 11/14/24 15:25 IMPRESSION: Mural thickening and edema within the distal sigmoid colon and rectum, with infiltration of the presacral fat. Large bilateral pleural effusions, right greater than left. Left basilar consolidation. Hepatomegaly. Abdomen Ultrasound 11/15/24 15:39 IMPRESSION: Hepatomegaly. Small echogenic foci in the gallbladder which may be stones or polyps. Follow-up advised. Otherwise, normal limited abdominal ultrasound. Chest X-Ray 11/17/24 13:11 IMPRESSION: Small bilateral pleural effusions, right greater than left with mild pulmonary vascular congestion. A focused bilateral chest ultrasound may be performed for a sufficient evaluation of the adequacy of the pleural effusions for thoracentesis. Discharge Plan Discharge Attending physician on discharge: José Gregory Consulting providers: Isra Davis Discharging Clinician: José Gregory Anticipated Discharge Date/Time: 11/19/24 11:54 Patient Disposition: NH Retirement/Asst Living Activity: other - see discharge instructions Diet: regular Discharge Instructions: Hospital Course at [place], [place] form 11/15-11/19 Brief history: The patient has a complex history regarding the spinal cord. The patient had multiple surgeries on the spine and the latest one on the cervical spine on 2024, at [facility],[place], [place]. We are not able obtain the medical records from [place]. According to the patient she might have A.Fibrillation for which they Amiodarone(possibly due to low BP) and Warfarin (due to low cost?). The patient also had C diff during her previous hospitalization. The patient went to [facility] and completed rehab and on the way to the senior care, had an episode of low blood pressure and was taken to [facility] ED. The patient was given fluids in the ED. The patient initially started on midodrine 10 mg t.i.d. and reduced to midodrine 5 mg p.o. t.i.d. When patient came to [facility] she was on Warfarin 2.5mg PO QD which was never started to possibly of getting thoracentesis. Patient did not receive thoracentesis but we did albumin infusion followed by Lasix which improved her symptoms. I called Dr.Nicholas Godfrey's office and spoke with his nurse([phone]), who wanted the patient to send pictures of the surgical site. If Dr. Randell Godfrey agreed to remove the suture, he would fax whether removing the cervical sutures is safe since the patient can be discharged tomorrow. -Please call Dr.Nicholas Martinez office [phone] for suture removal instructions. -Please obtain medical records from [facility] and possible change Warfarin to NOACs. -Please follow up the bilateral pleural effusion by repeat chest ray or chest US. -Follow up with Neurosurgeon ,Cardiology for A.Fib, Pulmonology/PCP for Pleural Effusion. -will continue warfarin and amiodarone . Holding her Acetazolamide and bumetanide due to low blood pressure but please discuss with the Cardiology and continue if needed Patient Instructions: Antibiotic Form, Warfarin (By mouth) Patient Language: Thai Stand Alone Forms: General Discharge Information Follow-up/Referrals: Elgin Chan [Other] Isra Davis MD [Physician] - Discharge Medications: New furosemide [Lasix] 40 mg tablet 40 mg PO BID Qty: 30 0RF Continued acetaminophen 500 mg capsule 1,000 mg PO Q6H amiodarone 200 mg tablet 200 mg PO DAILY azelastine 137 mcg (0.1 %) spray,non-aerosol 2 spray intranasal Q12H PRN (Reason: runny nose) Rx Instructions: administer into each nostril clotrimazole-betamethasone 1-0.05 % cream 1 applic topical BID Rx Instructions: apply to buttocks diphenhydramine HCl [Banophen] 25 mg tablet 25 mg PO HS ferrous sulfate [Feosol] 325 mg (65 mg iron) tablet 325 mg PO DAILY fluticasone propionate [24 Hour Allergy Relief] 50 mcg/actuation spray,suspension 1 spray intranasal BID PRN (Reason: allergy symptoms) Rx Instructions: administer into each nostril lidocaine 5 % adhesive patch,medicated 2 patch topical DAILY Rx Instructions: leave on most painful area for up to 12 hrs methocarbamol 750 mg tablet 1,500 mg PO TID nystatin 100,000 unit/mL suspension 5 ml PO QID Rx Instructions: swish and spit pramipexole 0.5 mg tablet 0.5 mg PO BID pregabalin [Lyrica] 150 mg capsule 150 mg PO BID trazodone 50 mg tablet 50 mg PO HS warfarin 2.5 mg tablet 2.5 mg PO DAILY triamcinolone acetonide [Triderm] 0.5 % cream 1 applic topical DAILY PRN (Reason: rash) Patient Comments: apply to rash albuterol sulfate 2.5 mg /3 mL (0.083 %) Solution For Nebulization 2.5 mg inhalation Q6HRT PRN (Reason: Shortness Of Breath) Qty: 0 0RF oxycodone 5 mg Tablet 10 mg PO Q4H PRN (Reason: pain--MODERATE-SEVERE) Qty: 12 0RF sodium chloride 1,000 mg Tablet,Soluble 1,000 mg PO DAILY@0900,1700 Qty: 0 0RF Held acetazolamide 250 mg Tablet 500 mg PO DAILY@1700 Qty: 0 0RF Hold Instructions: Resume on 12/17/24. Please discuss with Cardiology and if needs to be continue bumetanide 1 mg Tablet 2 mg PO DAILY@0900,1700 Qty: 0 0RF Hold Instructions: Resume on 12/17/24. Please discuss with Cardiology and if needs to be continue Discontinued levofloxacin 250 mg Tablet 750 mg PO DAILY Qty: 0 0RF Date of admission: 11/14/24 16:32 Primary Care Provider: Elgin Chan Admitting Provider: Rosita San Attending physician on admission: Rosita San Condition: Stable
== END 2024-11-19 13:05 | DRG 193 ==
LOC: ANHED 16:30 → ANHIMU 17:10 → ANHICU 11-15 06:07 → ANHIMU 11-15 06:25 → ANH3MED 11-19 12:14 → ANHIMU 11-22 14:48
PROVIDERS: Nurse Practitioner Gerontology; Admitting Provider Internal Medicine; Emergency Provider Family Medicine; Visit Provider General Practice
DX: J18.9 Pneumonia, unspecified organism (principal); I50.33 Acute on chronic diastolic (congestive) heart failure; J96.91 Respiratory failure, unspecified with hypoxia; E87.1 Hypo-osmolality and hyponatremia; N39.0 Urinary tract infection, site not specified; E87.6 Hypokalemia; G25.81 Restless legs syndrome; I11.0 Hypertensive heart disease with heart failure; I48.0 Paroxysmal atrial fibrillation; I95.9 Hypotension, unspecified; M40.203 Unspecified kyphosis, cervicothoracic region; R79.89 Other specified abnormal findings of blood chemistry; Z98.1 Arthrodesis status; Z79.01 Long term (current) use of anticoagulants
CPT/HCPCS: 36415; 71045; 71260; 74177; 76604; 76705; 80048; 80053; 80074; 81001; 83605; 83615; 83735; 83880; 84155; 84484; 85025; 85027; 85610; 85730; 87040; 87086; 87493; 87641; 93005; 93306; 96365; 96366; 96367; 96368; 96375; 97110; 97162; 97166; 97530; 97535; 99285; A9270; J0613; J0692; J0696; J1938; J2405; J2543; J3370; J7030; J7040; P9047; Q9967